=== PATIENT | male | born 1940 | race Caucasian/White ===

== ENCOUNTER 2016-11-25 12:10 | Inpatient (IN) | payer OTHER ==
[~2016-11-25] VITALS: Ht 165.1 cm; Wt 92.0 kg
[~2016-11-25 12:10] MED LIST: ACET-1311 PO; BISA10SU7 RE; CHLO0.12 MT; DIPH25CA5 PO; IPRASOL4 INH; KETO2SHA TOP; LANS15CA6 PO; MELATAB2 PO; MENT4GEL TOP; MOML PO; NRN600 PO; OXGN; OXYC1TAB3 PO; POLY335019 PO; PRMT25 PO; SENN-83 PO; SODIENE PR; TIZA4CAP PO; [UNRECOGNIZED DRUG - CODE] TOP
--- NOTE | 2016-11-25 12:40 | EMERGENCY ROOM VISIT NOTE ---
History Report prepared by Sonia: Geovanny Paulino Under the Supervision of: Dr. Ora Love M.D. First contact with patient: 12:23 Chief Complaint: ILLNESS Stated Complaint: ILLNESS History of Present Illness The patient is a 76 year old male who presents to the Emergency Room with complaints of waxing & waning blood pressure today. The patient has also been feeling generally unwell since yesterday. The patient currently denies any pain , lightheadedness, or vomiting. He was able to eat breakfast this morning. The patient has a history of cerebral palsy. He is currently being treated for a UTI. He also has history of diabetes and renal failure. He does not normally use a urinary catheter. Source of History: patient Onset: today Position: other (cardiovascular) Quality: other (blood pressure) Timing: waxes/wanes Associated Symptoms: No vomiting Review of Systems See HPI for pertinent positives & negatives. A total of 10 systems reviewed and were otherwise negative. Past Medical & Surgical Medical Problems: (1) Cerebral palsy (2) CKD (chronic kidney disease) stage 3, GFR 30-59 ml/min (3) DMII (diabetes mellitus, type 2) (4) Fever Family History No pertinent family history Social History Smoking Status: Never Smoker Alcohol Use: none Drug Use: none Marital Status: single Housing Status: residential Occupation Status: disabled Current/Historical Medications Scheduled Aspirin (Aspirin), 81 MG PO DAILY Gabapentin (Neurontin), 200 MG PO AMPM Gabapentin (Neurontin), 100 MG PO NOON Ketoconazole (Topical) (Ketoconazole), 1 APPLN TOP 2XWK Lansoprazole (Prevacid), 15 MG PO DAILY Levofloxacin (Levaquin), 750 MG PO DAILY Levothyroxine Sodium (Levothyroxine Sodium), 1 TAB PO DAILY Lisinopril (Prinivil), 10 MG PO DAILY Metformin Hcl (Glucophage), 500 MG PO BIDM Midodrine Hcl (Midodrine Hcl), 2.5 MG PO TID Oxycodone HCl (Oxycodone HCl), 5 MG PO BID Polyethylene Glycol 3350 (Miralax), 17 GM PO DAILY Ranitidine (Zantac), 150 MG PO DAILY Sennosides-Docusate Sodium (Senna-S), 2 TAB PO AMHS Tizanidine (Zanaflex), 4 MG PO TID Scheduled PRN Acetaminophen (Tylenol), 650 MG PO Q4 PRN for Pain Acetaminophen Tab (Tylenol), 650 MG PO Q4 PRN for Fever Bisacodyl (Dulcolax), 1 SUPP RI DAILY PRN for Constipation Camphor & Menthol (Sarna), 1 APPLN TOP QID PRN for UNDECIDED Ipratropium-Albuterol (Duoneb), 1 TREATMENT INH Q4H PRN for Wheezing Magnesium Hydroxide (Milk Of Magnesia), 30 ML PO DAILY PRN for Constipation Menthol (Mouth-Throat) ([place] Cough Drops), 1 DROP PO Q2 PRN for COUGH/SORE THROAT Ondansetron Hcl (Zofran), 4 MG PO QAM PRN for Nausea Zolpidem Tartrate (Ambien), 5 MG PO HS PRN for Insomnia Allergies Coded Allergies: No Known Allergies (Unverified , 04/24/16) Physical Exam Vital Signs Date Time Temp Pulse Resp B/P Pulse Ox O2 Delivery O2 Flow Rate FiO2 11/25/16 15:56 104 18 11/25/16 15:51 108 21 11/25/16 15:46 107 18 11/25/16 15:41 107 18 11/25/16 15:36 107 19 11/25/16 15:35 101/64 11/25/16 14:48 109/69 11/25/16 14:46 112 21 11/25/16 14:41 103 20 11/25/16 14:36 101 22 11/25/16 14:31 100 19 93/82 11/25/16 14:26 95 21 11/25/16 14:21 102 21 11/25/16 14:16 111/80 11/25/16 14:02 100/80 11/25/16 13:51 84 22 11/25/16 13:47 115/68 11/25/16 13:32 116/67 11/25/16 13:21 84 18 11/25/16 13:16 102/62 11/25/16 13:10 80 14 11/25/16 13:02 83/75 11/25/16 12:46 108/60 11/25/16 12:46 75 11/25/16 12:31 93/64 11/25/16 12:22 37.3 82 22 90/61 98 Room Air Physical Exam Vital signs reviewed. Noted to be hypotensive General: Somewhat ill-appearing male, in no significant distress. HEENT: No scleral icterus, PERRLA, neck supple. Atraumatic. Mucous membranes are dry. Cardiovascular: Regular rate and rhythm, no extra sounds. Pulmonary: Clear to auscultation bilaterally, normal work of breathing. Abdomen: Soft, nontender. Musculoskeletal: Contractures of bilateral upper extremities. Atrophy of bilateral lower extremities. Neurologic: Patient awake alert and oriented x 3 Skin: Warm, dry, no rash Medical Decision & Procedures ER Provider Diagnostic Interpretation: Radiology results as stated below per my review and radiologist interpretation: SINGLE VIEW CHEST CLINICAL HISTORY: Hypotension. FINDINGS: An AP, portable, upright chest radiograph is compared to study dated 04/24/2016. The examination is degraded by portable technique and patient rotation. The heart is enlarged and there is atherosclerotic calcification of the thoracic aorta. The pulmonary vasculature is noncongested. Chronic interstitial thickening is similar to previous. Airspace opacities are present the left lung base. There is right basilar atelectasis. No airspace consolidation is seen typical for pneumonia and there is no large pleural effusion. No pneumothorax is seen. The skeletal structures are osteopenic. The bony thorax is grossly intact. Fusion hardware is noted in the cervical spine. IMPRESSION: 1. Cardiomegaly without radiographic evidence of congestive failure. 2. There are airspace opacities the left lung base. This likely represents atelectasis. Correlated clinically for evidence of a superimposed infectious/inflammatory pneumonitis. Electronically signed by: Kvng St M.D. 11/25/2016 1:22 PM Dictated Date/Time: 11/25/2016 1:19 PM RENAL ULTRASOUND HISTORY: Renal insufficiency renal failure COMPARISON: None. FINDINGS: Right kidney: Maximum dimension 11.2 cm. No evidence for hydronephrosis. 9 mm renal cyst. Normal corticomedullary differentiation and cortical thickness. Left kidney: Maximum dimension 10.3 cm. No evidence for hydronephrosis. Normal corticomedullary differentiation and cortical thickness. Bladder: No bladder wall thickening. The bilateral ureteral jets were identified. IMPRESSION: Normal renal ultrasound. No evidence for hydronephrosis. Small right renal cyst. Electronically signed by: Jacinto Tierney M.D. 11/25/2016 3:32 PM Dictated Date/Time: 11/25/2016 3:30 PM Laboratory Results Test 11/25/16 12:26 11/25/16 14:55 Neutrophils % (Manual) 65.8 % Lymphocytes % (Manual) 21.9 % Monocytes % (Manual) 12.3 % Neutrophils # (Manual) 2.71 K/uL (1.4-6.5) Total Absolute Neutrophils 2.71 K/uL (1.4-6.5) Lymphocytes # (Manual) 0.90 K/uL (1.2-3.4) Total Absolute Lymphocytes 0.90 K/uL (1.2-3.4) Monocytes # (Manual) 0.51 K/uL (0.11-0.59) Total Bilirubin 0.5 mg/dl (0.2-1) Direct Bilirubin 0.1 mg/dl (0-0.2) Aspartate Amino Transf (AST/SGOT) 21 U/L (15-37) Alanine Aminotransferase (ALT/SGPT) 37 U/L (12-78) Alkaline Phosphatase 83 U/L (45-117) Total Creatine Kinase 80 U/L (39-308) Creatine Kinase MB 1.2 ng/ml (0.5-3.6) Creatine Kinase MB Ratio 1.5 (0-3.0) Troponin I 0.024 ng/ml (0-0.045) Total Protein 7.5 gm/dl (6.4-8.2) Albumin 2.6 gm/dl (3.4-5.0) Urine Color YELLOW Urine Appearance CLOUDY (CLEAR) Urine pH 7.5 (4.5-7.5) Urine Specific [place] 1.017 (1.000-1.030) Urine Protein 1+ (NEG) Urine Glucose (UA) 2+ (NEG) Urine Ketones NEG (NEG) Urine Occult Blood 1+ (NEG) Urine Nitrite NEG (NEG) Urine Bilirubin NEG (NEG) Urine Urobilinogen NEG (NEG) Urine Leukocyte Esterase LARGE (NEG) Urine WBC (Auto) >30 /hpf (0-5) Urine RBC (Auto) 5-10 /hpf (0-4) Urine Hyaline Casts (Auto) 1-5 /lpf (0-5) Urine Epithelial Cells (Auto) >30 /lpf (0-5) Urine Bacteria (Auto) NEG (NEG) Date/Time Source Procedure Growth Status 11/25/16 14:55 Urine , Clean Catch Urine Culture - Final MORE THAN THREE TYPES OF ORGANISMS RI... Complete Laboratory results per my review. Medications Administered Medications (Trade) Dose Ordered Sig/Lucille Route Start Time Stop Time Status Last Admin Dose Admin Sodium Chloride 500 ml @ 999 mls/hr Q31M STAT IV 11/25/16 12:56 11/25/16 13:26 DC 11/25/16 13:32 999 MLS/HR Sodium Chloride 1,000 ml @ 125 mls/hr Q8H STAT IV 11/25/16 12:56 11/25/16 18:22 DC 11/25/16 13:32 125 MLS/HR Insulin Human Regular 4 units/ Syringe 4 ml @ 1 mls/min NOW ONCE IV 11/25/16 15:45 11/25/16 15:48 DC 11/25/16 16:19 1 MLS/MIN Sodium Chloride (Nss 1000ml) 1,000 ml @ 100 mls/hr Q10H IV 11/25/16 16:03 12/25/16 16:02 11/28/16 23:59 100 MLS/HR ECG Indication: weakness Rate (beats per minute): 82 Rhythm: normal sinus Findings: no acute ischemic change, no ectopy ED Course 1235: Past medical records reviewed. The patient was evaluated in room C6. A complete history and physical examination was performed. 1256: NSS 1000 ml @ 125 mls/hr, NSS 500 ml @ 999 mls/hr. 1436: Discussed the case with Dr. Selby, [facility] Hospitalist. The patient will be evaluated. Medical Decision Differential diagnosis: Etiologies such as metabolic, infection, hypo/hyperglycemia, electrolyte abnormalities, cardiac sources, intracerebral event, toxicologic, neurologic, as well as others were entertained. This pt was evaluated and appeared to be in no distress. IV access was obtained and lab work was drawn. Pt was hydrated with NSS d/t hypotension. Patient is afebrile. White count is slightly low. Labs reveal an acute renal failure, likely volume restriction. UA was pending. Lactic acid was pending, d /t lab collection complications. EKG reveals a NSR without ectopy or ischemia. CXR reveals atelectasis with cardiomegaly, no failure. Pt was d/w the hospitalist service for admission and further management. He is aware of the plan and agrees. Consults Time Called: 1430 Consulting Physician: Twan Lockett Hospitalist Returned Call: [phone] The patient will be evaluated. Impression Primary Impression: Hypotension Additional Impression: Dehydration Scribe Attestation The scribe's documentation has been prepared under my direction and personally reviewed by me in its entirety. I confirm that the note above accurately reflects all work, treatment, procedures, and medical decision making performed by me. Departure Information Dispostion Being Evaluated By Hospitalist Referrals Geo Varela M.D. (PCP) Patient Instructions My [facility] Problem Qualifiers
[2016-11-25] MEDS ORDERED: SODIUM CHLORIDE 0.9% 500ML 500 ML IV STA (12:56)
[2016-11-25] MEDS ORDERED: SODIUM CHLORIDE 0.9% 1000ML 1,000 ML IV STA (12:56)
[2016-11-25 13:08] LABS: HEMATOCRIT 33.9 % (42-52); MEAN CELL VOLUME 96.9 fL (80-100); MEAN CORPUSCULAR HEMOGLOBIN 32.6 pg (25-34); MEAN CORPUSCULAR HGB CONC 33.6 g/dl (32-36); PLATELET COUNT 146 K/uL (130-400); WHITE BLOOD COUNT 4.12 K/uL (4.8-10.8)
[2016-11-25 13:17] LABS: BUN/CREATININE RATIO 12.4 (10-20); CALCIUM 8.2 mg/dl (8.5-10.1); CREATININE 2.9 mg/dl (0.60-1.40); POTASSIUM 5.4 mmol/L (3.5-5.1)
[2016-11-25 13:22] LABS: CKMB/CK RATIO 1.5 (0-3.0)
--- NOTE | 2016-11-25 13:23 | DIAGNOSTIC IMAGING REPORT ---
SINGLE VIEW CHEST CLINICAL HISTORY: Hypotension. FINDINGS: An AP, portable, upright chest radiograph is compared to study dated 04/24/2016. The examination is degraded by portable technique and patient rotation. The heart is enlarged and there is atherosclerotic calcification of the thoracic aorta. The pulmonary vasculature is noncongested. Chronic interstitial thickening is similar to previous. Airspace opacities are present the left lung base. There is right basilar atelectasis. No airspace consolidation is seen typical for pneumonia and there is no large pleural effusion. No pneumothorax is seen. The skeletal structures are osteopenic. The bony thorax is grossly intact. Fusion hardware is noted in the cervical spine. IMPRESSION: 1. Cardiomegaly without radiographic evidence of congestive failure. 2. There are airspace opacities the left lung base. This likely represents atelectasis. Correlated clinically for evidence of a superimposed infectious/inflammatory pneumonitis. Electronically signed by: Kvng St M.D. 11/25/2016 1:22 PM Dictated Date/Time: 11/25/2016 1:19 PM
[2016-11-25 13:31] LABS: COMPLETE YES; LYMPHOCYTE % 21.9 %; NEUTROPHILS % 65.8 %
[2016-11-25] MEDS ORDERED: SENN-104 PO (14:01)
[2016-11-25] MEDS ORDERED: GLC/500 PO (14:01)
[2016-11-25] MEDS ORDERED: CAMPLOT10 TOP (14:01)
[2016-11-25] MEDS ORDERED: OXYC-609 PO (14:01)
[2016-11-25] MEDS ORDERED: LISI10TA PO (14:01)
[2016-11-25] MEDS ORDERED: MOML PO (14:01)
[2016-11-25] MEDS ORDERED: BISA10SU3 PR (14:01)
[2016-11-25] MEDS ORDERED: ACET-1311 PO (14:01)
[2016-11-25] MEDS ORDERED: LEVO-18 PO (14:01)
--- NOTE | 2016-11-25 15:33 | DIAGNOSTIC IMAGING REPORT ---
RENAL ULTRASOUND HISTORY: Renal insufficiency renal failure COMPARISON: None. FINDINGS: Right kidney: Maximum dimension 11.2 cm. No evidence for hydronephrosis. 9 mm renal cyst. Normal corticomedullary differentiation and cortical thickness. Left kidney: Maximum dimension 10.3 cm. No evidence for hydronephrosis. Normal corticomedullary differentiation and cortical thickness. Bladder: No bladder wall thickening. The bilateral ureteral jets were identified. IMPRESSION: Normal renal ultrasound. No evidence for hydronephrosis. Small right renal cyst. Electronically signed by: Jacinto Tierney M.D. 11/25/2016 3:32 PM Dictated Date/Time: 11/25/2016 3:30 PM
[2016-11-25] MEDS ORDERED: INSULIN REGULAR 4 UNITS in SYRINGE 3.96 ML IV ONE (15:45)
[2016-11-25 15:48] LABS: URINE APPEARANCE CLOUDY (CLEAR); URINE BILIRUBIN NEG (NEG); URINE COLOR YELLOW; URINE EPITHELIAL CELL AUTO >30 /lpf (0-5); URINE NITRITE NEG (NEG); URINE PH 7.5 (4.5-7.5); URINE SPECIFIC GRAVITY 1.017 (1.000-1.030); UROBILINOGEN NEG (NEG); ZZUR CULT IF INDIC CLEAN CATCH YES
[2016-11-25] MEDS ORDERED: NovoLIN-R INSULIN PER UNIT CHARGE SC STA (16:01)
[2016-11-25 16:14] LABS: MANUAL MICROSCOPIC REQUIRED? NO; REVIEW REQ? YES; SULFASALICYLIC ACID POS (NEG)
[2016-11-25] MEDS ORDERED: GLUCOSE 10 TABS/TUBE PO PRN (16:15)
[2016-11-25] MEDS ORDERED: GLUCOSE 40% GEL 15 GM TUBE PO PRN (16:15)
[2016-11-25] MEDS ORDERED: POLYETHYLENE (MIRALAX) 17 GM PACK PO PRN (16:15)
[2016-11-25] MEDS ORDERED: ALUMINUM/MAGNESIUM/SIMETH (MAALOX MAX) 30 ML UDC PO PRN (16:15)
[2016-11-25] MEDS ORDERED: ONDANSETRON INJ 2 MG/ML 2 ML VIAL IV PRN (16:15)
[2016-11-25] MEDS ORDERED: MAGNESIUM HYDROXIDE SUSP 30 ML UDC PO PRN (16:15)
[2016-11-25] MEDS ORDERED: GLUCAGON FOR INJ 1 MG VIAL SQ PRN (16:15)
[2016-11-25] MEDS ORDERED: DEXTROSE 50% 50 ML SYR IV PRN (16:15)
[2016-11-25] MEDS ORDERED: PHARMACY GLYCEMIC MGMT CONSULT PRN (16:57)
[2016-11-25] MEDS ORDERED: PIPERACILL/TAZOBAC CONSULT ACTIVE PRN (18:00)
[2016-11-25] MEDS ORDERED: VANCOMYCIN CONSULT ACTIVE PRN (18:00)
[2016-11-25 18:10] VITALS: BP 109/68; PULSE 99; TEMP 39.5; O2SAT 90; Ht 165.1 cm; Wt 92.0 kg
[2016-11-25] MEDS ORDERED: PIPERACILL/TAZOBAC IV 3.375 GM in DEXTROSE 5% 100ML IV ONE (18:30)
[2016-11-25] MEDS: SODIUM CHLORIDE 0.9% 1000ML 1,000 ML IV SCH (18:37)
[2016-11-25 18:50] LABS: INR 1.3 (0.9-1.1); PROTHROMBIN TIME (PATIENT) 13.8 SECONDS (9.0-12.0)
[2016-11-25] MEDS: INSULIN ASPART 100 UNITS/ML 3 ML PEN SC SCH ×2 (18:56→20:35)
[2016-11-25] MEDS: ACETAMINOPHEN 325 MG TAB PO PRN (18:57)
[2016-11-25] MEDS ORDERED: VANCOMYCIN INJ 1,850 MG in SODIUM CHLORIDE 0.9% 500ML 500 ML IV SCH (19:00)
[2016-11-25] MEDS ORDERED: ZOLPIDEM TARTRATE 5 MG TAB PO PRN (19:00)
[2016-11-25] MEDS ORDERED: ONDANSETRON 4 MG TAB PO PRN (19:00)
[2016-11-25] MEDS ORDERED: COUGH DROP (SUGAR FREE) LOZ 24 LOZ/1 BOX PO PRN (19:00)
[2016-11-25] MEDS ORDERED: BISACODYL 10 MG SUPP PR PRN (19:00)
[2016-11-25] MEDS ORDERED: OXYCODONE HCL IR 5 MG TAB (IMMEDIATE RELEASE) PO PRN (19:00)
[2016-11-25 19:02] LABS: BLOOD UREA NITROGEN 34 mg/dl (7-18); BUN/CREATININE RATIO 12.5 (10-20); CALCIUM 7.8 mg/dl (8.5-10.1); CARBON DIOXIDE 18 mmol/L (21-32); CHLORIDE 107 mmol/L (98-107); GLUCOSE 166 mg/dl (70-99); SODIUM 136 mmol/L (136-145)
[2016-11-25 19:42] VITALS: BP 95/61; PULSE 97; TEMP 38.2; O2SAT 91
[2016-11-25 20:00] VITALS: O2SAT 91
[2016-11-25] MEDS: DOCUSATE SODIUM/SENNA 50/8.6MG TAB PO SCH (20:28)
[2016-11-25] MEDS: GABAPENTIN 100 MG CAP PO SCH (20:30)
[2016-11-25] MEDS ORDERED: VANCOMYCIN INJ 1,000 MG in SODIUM CHLORIDE 0.9% 250ML 250 ML IV SCH (21:00)
--- NOTE | 2016-11-25 21:20 | Pharmacy Progress Note ---
Glycemic: Assessment & Plan Date of Service November 25, 2016. Assessment & Plan Item Value Date Time Bedside Glucose 177 mg/dl H 11/25/16 2019 Bedside Glucose 174 mg/dl H 11/25/16 1854 Random Glucose 166 mg/dl H 11/25/16 1820 Bedside Glucose 212 mg/dl H 11/25/16 1615 Random Glucose 296 mg/dl H 11/25/16 1226 Home Diabetes Regimen: * metformin 500mg po BID In-patient Regimen: * Basal insulin: Not ordered at this time * Correctional Insulin: Novolog Correction per scale ACHS & 0200 Goal Range: Low 110 mg/dL - High 150 mg/dL Correction Factor: 25 mg/dL/unit * Prandial insulin: Per carb ratio of 1 unit per 12 grams CHO consumed Pharmacy will continue to monitor patient daily and write orders per [facility] inpatient glycemic control protocol. Thanks. * Please note that the plan above was derived based on current level of insulin resistance and hospital stress. These recommendations are appropriate for inpatient admission only. Plan of care upon discharge will need to be reassessed to avoid potential outpatient hypo/hyperglycemia.
--- NOTE | 2016-11-25 21:37 | History and Physical ---
History & Physical Date & Time of Service: November 25, 2016 at 15:06 Chief Complaint: Illness Primary Care Physician: Geo Varela M.D. History of Present Illness Source: patient, clinic records, hospital records This is a 76 year old male with a PMH of Cerebral Palsy, hx. of epidural abscess and discitis, neurogenic bladder, orthostatic hypotension, DM2, hypothyroidism sent over by [facility] secondary to fevers/chills, elevated creatinine, dehydration. 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 He returned to [facility] in 2015 for sepsis, likely secondary to pneumonia. He has had issues with recurrent UTI due to neurogenic bladder. He was seen by Hilda Iniguez PA-C on 11/24 and 11/25 due to fevers. He was given Levaquin 750mg, but he refused IVFs. He was noted to have an increase in his creatinine level. He was tearful when initially told he would come to the ER on 11/24, but agreeable today (11/25). Also noted to have BSGs in the 500s at the nursing facility; was given 10 units of Novolog. Currently: He feels much better after receiving the IV fluids; states he feels like he's back to his baseline; he is able to move his L arm, and can move his b /l legs and has actually been ambulating at [facility]. Past Medical/Surgical History Medical Problems: (1) Cerebral palsy Status: Chronic (2) CKD (chronic kidney disease) stage 3, GFR 30-59 ml/min Status: Chronic (3) DMII (diabetes mellitus, type 2) Status: Chronic Family History No pertinent family history Social History Smoking Status: Never Smoker Drug Use: none Marital Status: single 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 Status: disabled Multi-Drug Resistant Organisms History of MDRO: Yes Type of MDRO: MRSA Allergies Coded Allergies: No Known Allergies (Unverified , 04/24/16) Home Medications Scheduled Aspirin (Aspirin), 81 MG PO DAILY Gabapentin (Neurontin), 200 MG PO AMPM Gabapentin (Neurontin), 100 MG PO NOON Ketoconazole (Topical) (Ketoconazole), 1 APPLN TOP 2XWK Lansoprazole (Prevacid), 15 MG PO DAILY Levofloxacin (Levaquin), 750 MG PO DAILY Levothyroxine Sodium (Levothyroxine Sodium), 1 TAB PO DAILY Lisinopril (Prinivil), 10 MG PO DAILY Metformin Hcl (Glucophage), 500 MG PO BIDM Midodrine Hcl (Midodrine Hcl), 2.5 MG PO TID Oxycodone HCl (Oxycodone HCl), 5 MG PO BID Polyethylene Glycol 3350 (Miralax), 17 GM PO DAILY Ranitidine (Zantac), 150 MG PO DAILY Sennosides-Docusate Sodium (Senna-S), 2 TAB PO AMHS Tizanidine (Zanaflex), 4 MG PO TID Scheduled PRN Acetaminophen (Tylenol), 650 MG PO Q4 PRN for Pain Acetaminophen Tab (Tylenol), 650 MG PO Q4 PRN for Fever Bisacodyl (Dulcolax), 1 SUPP MI DAILY PRN for Constipation Camphor & Menthol (Sarna), 1 APPLN TOP QID PRN for UNDECIDED Ipratropium-Albuterol (Duoneb), 1 TREATMENT INH Q4H PRN for Wheezing Magnesium Hydroxide (Milk Of Magnesia), 30 ML PO DAILY PRN for Constipation Menthol (Mouth-Throat) ([place] Cough Drops), 1 DROP PO Q2 PRN for COUGH/SORE THROAT Ondansetron Hcl (Zofran), 4 MG PO QAM PRN for Nausea Zolpidem Tartrate (Ambien), 5 MG PO HS PRN for Insomnia Review of Systems Constitutional: + chills, + fatigue, + fever, + weakness Respiratory: No cough, No dyspnea at rest, No dyspnea on exertion, No shortness of breath, No sputum, No wheezing Cardiovascular: No chest pain, No edema, No palpitations Abdomen: No GI bleeding, No constipation, No diarrhea, No nausea, No pain, No vomiting Musculoskeletal: + joint pain, + muscle pain, No calf pain, No swelling Genitourinary - Male: + urinary retention (neurogenic bladder) Neurologic: + paralysis (R upper extremity), + weakness (chronic muscle weakness), No balance problems, No memory loss, No numbness/tingling, No vertigo Psychiatric: No anxiety, No depression symptoms Hematologic / Lymphatic: No abnormal bleeding/bruising Integumentary: No rash Allergic / Immunologic: No environmental allergies, No seasonal allergies Physical Exam Vital Signs Date Time Temp Pulse Resp B/P Pulse Ox O2 Delivery O2 Flow Rate FiO2 11/25/16 14:21 102 21 11/25/16 14:16 111/80 11/25/16 14:02 100/80 11/25/16 13:51 84 22 11/25/16 13:47 115/68 11/25/16 13:32 116/67 11/25/16 13:21 84 18 11/25/16 13:16 102/62 11/25/16 13:10 80 14 11/25/16 13:02 83/75 11/25/16 12:46 108/60 11/25/16 12:46 75 11/25/16 12:31 93/64 11/25/16 12:22 37.3 82 22 90/61 98 Room Air General Appearance: no apparent distress Head: normocephalic, atraumatic Eyes: normal inspection ENT: hearing grossly normal Neck: supple Respiratory/Chest: chest non-tender, lungs clear, normal breath sounds, no respiratory distress, no accessory muscle use Cardiovascular: no edema, no gallop, no JVD, no murmur, normal peripheral pulses, + tachycardia Abdomen/GI: normal bowel sounds, non tender, soft, no organomegaly Extremities/Musculoskelatal: + pertinent finding (significant muscle weakness, chronically) Neurologic/Psych: alert, + motor weakness Skin: normal color Diagnostics Laboratory Results Results Past 24 Hours Test 11/25/16 12:26 11/25/16 15:01 11/25/16 15:02 Range/Units White Blood Count 4.12 4.8-10.8 K/uL Red Blood Count 3.50 4.7-6.1 M/uL Hemoglobin 11.4 14.0-18.0 g/dL Hematocrit 33.9 42-52 % Mean Corpuscular Volume 96.9 80-100 fL Mean Corpuscular Hemoglobin 32.6 25-34 pg Mean Corpuscular Hemoglobin Concent 33.6 32-36 g/dl Platelet Count 146 130-400 K/uL Mean Platelet Volume 11.0 7.4-10.4 fL RDW Standard Deviation 51.7 36.4-46.3 fL RDW Coefficient of Variation 14.8 11.5-14.5 % Neutrophils % (Manual) 65.8 % Lymphocytes % (Manual) 21.9 % Monocytes % (Manual) 12.3 % Neutrophils # (Manual) 2.71 1.4-6.5 K/uL Total Absolute Neutrophils 2.71 1.4-6.5 K/uL Lymphocytes # (Manual) 0.90 1.2-3.4 K/uL Total Absolute Lymphocytes 0.90 1.2-3.4 K/uL Monocytes # (Manual) 0.51 0.11-0.59 K/uL Sodium Level 135 136-145 mmol/L Potassium Level 5.4 3.5-5.1 mmol/L Chloride Level 100 98-107 mmol/L Carbon Dioxide Level 28 21-32 mmol/L Anion Gap 7.0 3-11 mmol/L Blood Urea Nitrogen 36 7-18 mg/dl Creatinine 2.90 0.60-1.40 mg/dl Est Creatinine Clear Calc Drug Dose 11.8 ml/min Estimated GFR () 23.6 Estimated GFR (Non- 20.4 BUN/Creatinine Ratio 12.4 10-20 Random Glucose 296 70-99 mg/dl Calcium Level 8.2 8.5-10.1 mg/dl Magnesium Level 2.0 1.8-2.4 mg/dl Total Bilirubin 0.5 0.2-1 mg/dl Direct Bilirubin 0.1 0-0.2 mg/dl Aspartate Amino Transf (AST/SGOT) 21 15-37 U/L Alanine Aminotransferase (ALT/SGPT) 37 12-78 U/L Alkaline Phosphatase 83 45-117 U/L Total Creatine Kinase 80 39-308 U/L Creatine Kinase MB 1.2 0.5-3.6 ng/ml Creatine Kinase MB Ratio 1.5 0-3.0 Total Protein 7.5 6.4-8.2 gm/dl Albumin 2.6 3.4-5.0 gm/dl Microbiology Results 11/25/16 Blood Culture, Received Pending 11/25/16 Blood Culture, Received Pending Diagnostic Radiology IMPRESSION: 1. Cardiomegaly without radiographic evidence of congestive failure. 2. There are airspace opacities the left lung base. This likely represents atelectasis. Correlated clinically for evidence of a superimposed infectious/inflammatory pneumonitis. Normal EKG Impression Assessment and Plan This is a 76 year old male with a PMH of Cerebral Palsy, hx. of epidural abscess and discitis, neurogenic bladder, orthostatic hypotension, DM2, hypothyroidism sent over by [facility] secondary to fevers/chills, elevated creatinine, dehydration Acute Kidney Injury Neurogenic Bladder secondary to dehydration? possibly UTI; patient has neurogenic bladder condom catheter not working; penis noted to be in retracted, which could be another cause of his kidney injury Either way, we will give fluids for now, monitor urine output check UA will give antibiotics urine culture Lactic Acidosis Possible Pneumonia patient does have a history of sepsis, has had fevers the past few days at [facility] possible lung source, as CXR shows possible pneumonitis will add Zosyn + Vancomycin - pharmacy for dosing blood cultures pending hx. of MRSA in the past, hx. of discitis, epidural abscess, recurrent UTIs DM2 sliding scale pharmacy glycemic control consult Hypothyroidism check TSH continue synthroid DVT ppx subq heparin FULL CODE
[2016-11-25] MEDS: HEPARIN SOD 5000 UNIT/0.5 ML CARP SQ SCH (21:40)
[2016-11-26] VITALS (9 sets, daily range): BP systolic 81–117; BP diastolic 50–73; PULSE 67–96; TEMP 37–39.5; O2SAT 92–96
[2016-11-26] MEDS: SODIUM CHLORIDE 0.9% 1000ML 1,000 ML IV SCH ×3 (00:15→20:15)
[2016-11-26] MEDS: PIPERACILL/TAZOBAC IV 3.375 GM in DEXTROSE 5% 100ML 100 ML IV SCH ×3 (00:16→15:58)
[2016-11-26] MEDS ORDERED: INSULIN ASPART 100 UNITS/ML 3 ML PEN SC SCH (02:00)
[2016-11-26] MEDS: ACETAMINOPHEN 325 MG TAB PO PRN ×2 (02:48→15:05)
[2016-11-26] MEDS ORDERED: LEVOTHYROXINE 50 MCG TAB PO SCH (06:00)
[2016-11-26] MEDS: HEPARIN SOD 5000 UNIT/0.5 ML CARP SQ SCH ×3 (06:38→22:05)
[2016-11-26] MEDS: KETOCONAZOLE SCH ×2 (07:30→15:56)
[2016-11-26] MEDS: POLYETHYLENE (MIRALAX) 17 GM PACK PO SCH (07:30)
[2016-11-26 07:32] LABS: HEMATOCRIT 35.1 % (42-52); MEAN CORPUSCULAR HEMOGLOBIN 32.3 pg (25-34); MEAN CORPUSCULAR HGB CONC 33.3 g/dl (32-36); MEAN PLATELET VOLUME 10.3 fL (7.4-10.4); PLATELET COUNT 111 K/uL (130-400); RED BLOOD COUNT 3.62 M/uL (4.7-6.1); WHITE BLOOD COUNT 2.28 K/uL (4.8-10.8)
[2016-11-26] MEDS: ASPIRIN 81 MG ECTAB PO SCH (07:35)
[2016-11-26] MEDS: PANTOprazole SOD 40 MG TAB PO SCH (07:36)
[2016-11-26] MEDS: MIDODRINE 2.5 MG TAB PO SCH ×3 (07:36→17:13)
[2016-11-26] MEDS: GABAPENTIN 100 MG CAP PO SCH ×3 (07:36→20:25)
[2016-11-26] MEDS: RANITIDINE HCL 150 MG TAB PO SCH (07:37)
[2016-11-26] MEDS: DOCUSATE SODIUM/SENNA 50/8.6MG TAB PO SCH ×2 (07:37→20:26)
[2016-11-26 08:02] LABS: BUN/CREATININE RATIO 13.3 (10-20); CALCIUM 8.1 mg/dl (8.5-10.1); CREATININE 2.6 mg/dl (0.60-1.40); MAGNESIUM 1.9 mg/dl (1.8-2.4); POTASSIUM 4.5 mmol/L (3.5-5.1)
[2016-11-26 08:15] LABS: THYROID STIMULATING HORMONE 4.59 uIu/ml (0.300-4.500)
[2016-11-26] MEDS: INSULIN ASPART 100 UNITS/ML 3 ML PEN SC SCH ×4 (08:19→20:27)
[2016-11-26] MEDS ORDERED: LISINOPRIL 10 MG TAB PO SCH (09:00)
[2016-11-26] MEDS ORDERED: POLYETHYLENE (MIRALAX) 17 GM PACK PO SCH (09:00)
[2016-11-26] MEDS ORDERED: GABAPENTIN 100 MG CAP PO SCH (09:00)
[2016-11-26 09:25] LABS: ESTIMATED AVERAGE GLUCOSE 189 mg/dl; HA1C FLAG Normal (Normal)
[2016-11-26] MEDS: VANCOMYCIN INJ 1,300 MG in SODIUM CHLORIDE 0.9% 250ML 250 ML IV SCH ×2 (09:57→10:11)
[2016-11-26] MEDS ORDERED: INSULIN GLARGINE SOLOSTAR 100 UNITS/ML 3 ML PEN SC ONE (11:00)
--- NOTE | 2016-11-26 11:23 | Progress Note ---
Subjective Date of Service: November 26, 2016. Subjective Pt evaluation today including: conversation w/ patient, physical exam, lab review, review of studies, review of inpatient medication list Saw/examined the patient in room 244 Patient is sleepy and lethargic, but arousable and does answer questions appropriately +fevers, chills, weakness denies chest pain, shortness of breath Problem List Medical Problems: (1) Dehydration Status: Acute (2) Hypotension Status: Acute (3) Pneumonia Status: Acute (4) Sepsis Status: Acute (5) Tachycardia Status: Acute (6) TIA (transient ischemic attack) Status: Acute Review of Systems Constitutional: + chills, + fatigue, + fever, + weakness Respiratory: No shortness of breath Cardiac: No chest pain, No edema, No palpitations Abdomen: No GI bleeding, No constipation, No diarrhea, No nausea, No pain, No vomiting Male : + incontinence Medications Current Inpatient Medications Medications (Trade) Dose Ordered Sig/Lucille Route Start Time Stop Time Status Last Admin Dose Admin Heparin Sodium (Porcine) 5000 unit 5,000 unit Q8H SQ 11/25/16 22:00 12/25/16 21:59 11/26/16 06:38 5,000 UNIT Sodium Chloride (Nss 1000ml) 1,000 ml @ 150 mls/hr Q6H40M IV 11/25/16 16:03 12/25/16 16:02 11/26/16 00:15 150 MLS/HR Acetaminophen (Tylenol Tab) 650 mg Q4H PRN PO 11/25/16 16:15 12/25/16 16:14 11/26/16 02:48 650 MG Al Hydrox/Mg Hydrox/Simethicone (Maalox Max Susp) 15 ml Q4H PRN PO 11/25/16 16:15 12/25/16 16:14 Magnesium Hydroxide (Milk Of Magnesia Susp) 30 ml Q12H PRN PO 11/25/16 16:15 12/25/16 16:14 Ondansetron HCl (Zofran Inj) 4 mg Q6H PRN IV 11/25/16 16:15 12/25/16 16:14 Polyethylene (Miralax Powder Packet) 17 gm DAILY PRN PO 11/25/16 16:15 12/25/16 16:14 Insulin Aspart (novoLOG ASPART) SLIDING SCALE If C... ACHS SC 11/25/16 18:15 12/25/16 18:14 11/26/16 08:19 2 UNITS Glucose (Glucose 40% Gel) 15-30 GRAMS 15 GRAMS... UD PRN PO 11/25/16 16:15 12/25/16 16:14 Glucose (Glucose Chew Tab) 4-8 Tablets 4 Tabl... UD PRN PO 11/25/16 16:15 12/25/16 16:14 Dextrose (Dextrose 50% 50ML Syringe) 25-50ML OF 50% DW IV FOR... UD PRN IV 11/25/16 16:15 12/25/16 16:14 Glucagon (Glucagon Inj) 1 mg UD PRN SQ 11/25/16 16:15 12/25/16 16:14 Miscellaneous Information 1 ea 1 ea UD PRN N/A 11/25/16 16:57 12/25/16 16:56 Piperacillin Sod/ Tazobactam Sod/ Dextrose (Zosyn Iv/D5 100ml) 115 ml @ 28.75 mls/ hr Q8H IV 11/26/16 00:00 12/05/16 23:59 11/26/16 07:33 28.75 MLS/HR Vancomycin HCl (Consult) 1 ea UD PRN N/A 11/25/16 18:00 12/25/16 17:59 Piperacillin Sod/ Tazobactam Sod (Consult) 1 ea UD PRN N/A 11/25/16 18:00 12/25/16 17:59 Aspirin (Ecotrin Tab) 81 mg DAILY PO 11/26/16 09:00 12/26/16 08:59 11/26/16 07:35 81 MG Bisacodyl (Dulcolax Supp) 5 mg DAILY PRN MN 11/25/16 19:00 12/25/16 18:59 Midodrine (Proamatine Tab) 2.5 mg TID@0700,1200,1700 PO 11/26/16 07:00 12/26/16 06:59 11/26/16 07:36 2.5 MG Ondansetron HCl (Zofran Tab) 4 mg QAM PRN PO 11/25/16 19:00 12/25/16 18:59 Ranitidine HCl (zANTac TAB) 150 mg DAILY PO 11/26/16 09:00 12/26/16 08:59 11/26/16 07:37 150 MG Senna/Docusate Sodium (Senokot S Tab) 2 tab AMHS PO 11/25/16 21:00 12/25/16 20:59 11/26/16 07:37 2 TAB Zolpidem Tartrate (Ambien Tab) 5 mg HS PRN PO 11/25/16 19:00 12/25/16 18:59 Miscellaneous Information (Order Awaiting Action) 1 ea [id number] N/A 11/26/16 09:00 12/26/16 08:59 Pantoprazole Sodium (Protonix Tab) 40 mg DAILY PO 11/26/16 09:00 12/26/16 08:59 11/26/16 07:36 40 MG Menthol (Nice Jossie) 1 jossie Q2 PRN PO 11/25/16 19:00 12/25/16 18:59 Tizanidine HCl (Zanaflex Tab) 4 mg TID PO 11/25/16 21:00 12/25/16 20:59 11/26/16 07:37 4 MG Oxycodone HCl (Roxicodone Immediate Rel Tab) 5 mg Q4 PRN PO 11/25/16 19:00 12/09/16 18:59 Gabapentin (Neurontin Cap) 200 mg BID PO 11/25/16 21:00 12/25/16 20:59 11/26/16 07:36 200 MG Polyethylene (Miralax Powder Packet) 17 gm DAILY PO 11/26/16 09:00 12/26/16 08:59 Gabapentin 100 mg 100 mg DAILY@1200 PO 11/26/16 12:00 12/26/16 11:59 Vancomycin HCl/ Sodium Chloride (Vancomycin Inj/ Nss 250ml) 276 ml @ 125 mls/hr 1000 IV 11/26/16 10:00 11/26/16 12:13 11/26/16 10:11 125 MLS/HR Levothyroxine Sodium (Synthroid Tab) 75 mcg DAILYBB PO 11/27/16 06:00 12/27/16 05:59 Insulin Glargine (Lantus Solostar Pen) SEE PROTOCOL TEXT BID SC 11/26/16 21:00 12/26/16 20:59 Objective Vital Signs Date Time Temp Pulse Resp B/P Pulse Ox O2 Delivery O2 Flow Rate FiO2 11/26/16 10:54 37.1 69 18 90/59 92 Room Air 11/26/16 08:00 37.2 96 16 108/73 92 Room Air 11/26/16 08:00 92 Room Air 11/26/16 04:00 92 Room Air 11/26/16 04:00 37.0 80 19 91/50 92 Room Air 11/26/16 02:30 37.9 86 22 91/59 93 Room Air 11/26/16 00:00 37.3 85 24 117/71 96 Room Air 11/25/16 23:45 Room Air 11/25/16 20:00 91 Room Air 11/25/16 19:42 38.2 97 20 95/61 91 Room Air 11/25/16 18:10 39.5 99 18 109/68 90 Room Air 11/25/16 17:30 37.3 103 22 101/64 98 11/25/16 17:26 103 22 11/25/16 16:56 104 22 11/25/16 16:48 103 11/25/16 16:26 105 24 11/25/16 15:56 104 18 11/25/16 15:51 108 21 11/25/16 15:46 107 18 11/25/16 15:41 107 18 11/25/16 15:36 107 19 11/25/16 15:35 101/64 11/25/16 14:48 109/69 11/25/16 14:46 112 21 11/25/16 14:41 103 20 11/25/16 14:36 101 22 11/25/16 14:31 100 19 93/82 11/25/16 14:26 95 21 11/25/16 14:21 102 21 11/25/16 14:16 111/80 11/25/16 14:02 100/80 11/25/16 13:51 84 22 11/25/16 13:47 115/68 11/25/16 13:32 116/67 11/25/16 13:21 84 18 11/25/16 13:16 102/62 11/25/16 13:10 80 14 11/25/16 13:02 83/75 11/25/16 12:46 108/60 11/25/16 12:46 75 11/25/16 12:31 93/64 11/25/16 12:22 37.3 82 22 90/61 98 Room Air Physical Exam General Appearance: + mild distress, + pertinent finding (lethargic, tired, weak, also was tearful when Puentes catheter was mentioned) Respiratory/Chest: lungs clear, normal breath sounds, no respiratory distress, no accessory muscle use Cardiovascular: regular rate, rhythm, no edema, no gallop, no JVD, no murmur Abdomen: normal bowel sounds Extremities: normal inspection, no pedal edema Neurologic/Psychiatric: alert Laboratory Results Last 24 Hours Test 11/25/16 12:26 11/25/16 14:55 11/25/16 16:10 11/25/16 16:15 White Blood Count 4.12 K/uL Red Blood Count 3.50 M/uL Hemoglobin 11.4 g/dL Hematocrit 33.9 % Mean Corpuscular Volume 96.9 fL Mean Corpuscular Hemoglobin 32.6 pg Mean Corpuscular Hemoglobin Concent 33.6 g/dl Platelet Count 146 K/uL Mean Platelet Volume 11.0 fL RDW Standard Deviation 51.7 fL RDW Coefficient of Variation 14.8 % Neutrophils % (Manual) 65.8 % Lymphocytes % (Manual) 21.9 % Monocytes % (Manual) 12.3 % Neutrophils # (Manual) 2.71 K/uL Total Absolute Neutrophils 2.71 K/uL Lymphocytes # (Manual) 0.90 K/uL Total Absolute Lymphocytes 0.90 K/uL Monocytes # (Manual) 0.51 K/uL Sodium Level 135 mmol/L Potassium Level 5.4 mmol/L Chloride Level 100 mmol/L Carbon Dioxide Level 28 mmol/L Anion Gap 7.0 mmol/L Blood Urea Nitrogen 36 mg/dl Creatinine 2.90 mg/dl Est Creatinine Clear Calc Drug Dose 11.8 ml/min Estimated GFR () 23.6 Estimated GFR (Non- 20.4 BUN/Creatinine Ratio 12.4 Random Glucose 296 mg/dl Calcium Level 8.2 mg/dl Magnesium Level 2.0 mg/dl Total Bilirubin 0.5 mg/dl Direct Bilirubin 0.1 mg/dl Aspartate Amino Transf (AST/SGOT) 21 U/L Alanine Aminotransferase (ALT/SGPT) 37 U/L Alkaline Phosphatase 83 U/L Total Creatine Kinase 80 U/L Creatine Kinase MB 1.2 ng/ml Creatine Kinase MB Ratio 1.5 Troponin I 0.024 ng/ml Total Protein 7.5 gm/dl Albumin 2.6 gm/dl Urine Color YELLOW Urine Appearance CLOUDY Urine pH 7.5 Urine Specific [place] 1.017 Urine Protein 1+ Urine Glucose (UA) 2+ Urine Ketones NEG Urine Occult Blood 1+ Urine Nitrite NEG Urine Bilirubin NEG Urine Urobilinogen NEG Urine Leukocyte Esterase LARGE Urine WBC (Auto) >30 /hpf Urine RBC (Auto) 5-10 /hpf Urine Hyaline Casts (Auto) 1-5 /lpf Urine Epithelial Cells (Auto) >30 /lpf Urine Bacteria (Auto) NEG Lactic Acid Level 3.1 mmol/L Bedside Glucose 212 mg/dl Test 11/25/16 18:20 11/25/16 18:35 11/25/16 18:54 11/25/16 19:20 Sodium Level 136 mmol/L Potassium Level mmol/L 4.6 mmol/L Chloride Level 107 mmol/L Carbon Dioxide Level 18 mmol/L Anion Gap 11.0 mmol/L Blood Urea Nitrogen 34 mg/dl Creatinine 2.70 mg/dl Est Creatinine Clear Calc Drug Dose 24.1 ml/min Estimated GFR () 25.7 Estimated GFR (Non- 22.2 BUN/Creatinine Ratio 12.5 Random Glucose 166 mg/dl Calcium Level 7.8 mg/dl Prothrombin Time 13.8 SECONDS Prothromb Time International Ratio 1.3 Bedside Glucose 174 mg/dl Test 11/25/16 20:19 11/25/16 23:50 11/26/16 02:20 11/26/16 06:54 Bedside Glucose 177 mg/dl 209 mg/dl 150 mg/dl Lactic Acid Level 3.9 mmol/L Test 11/26/16 07:16 11/26/16 08:00 White Blood Count 2.28 K/uL Red Blood Count 3.62 M/uL Hemoglobin 11.7 g/dL Hematocrit 35.1 % Mean Corpuscular Volume 97.0 fL Mean Corpuscular Hemoglobin 32.3 pg Mean Corpuscular Hemoglobin Concent 33.3 g/dl RDW Standard Deviation 53.0 fL RDW Coefficient of Variation 14.9 % Platelet Count 111 K/uL Mean Platelet Volume 10.3 fL Sodium Level 139 mmol/L Potassium Level 4.5 mmol/L Chloride Level 105 mmol/L Carbon Dioxide Level 25 mmol/L Anion Gap 9.0 mmol/L Blood Urea Nitrogen 35 mg/dl Creatinine 2.60 mg/dl Est Creatinine Clear Calc Drug Dose 24.5 ml/min Estimated GFR () 26.9 Estimated GFR (Non- 23.3 BUN/Creatinine Ratio 13.3 Random Glucose 162 mg/dl Estimated Average Glucose 189 mg/dl Hemoglobin A1c 8.2 % Lactic Acid Level 2.5 mmol/L Calcium Level 8.1 mg/dl Magnesium Level 1.9 mg/dl Thyroid Stimulating Hormone (TSH) 4.590 uIu/ml Random Vancomycin Level 18.7 mcg/ml Assessment and Plan This is a 76 year old male with a PMH of Cerebral Palsy, hx. of epidural abscess and discitis, neurogenic bladder, orthostatic hypotension, DM2, hypothyroidism sent over by [facility] secondary to fevers/chills, elevated creatinine, dehydration Acute Kidney Injury Neurogenic Bladder 11/26 urinary retention? will need I's and O's assure that condom catheter is functioning may need Puentes catheter cont IVFs 11/25 secondary to dehydration? possibly UTI; patient has neurogenic bladder condom catheter not working; penis noted to be in retracted, which could be another cause of his kidney injury Either way, we will give fluids for now, monitor urine output check UA will give antibiotics urine culture Lactic Acidosis Possible Pneumonia 11/26 lactic acid trending down now, after IVF rate increased continue Zosyn and Vancomycin blood and urine cultures pending 11/25 patient does have a history of sepsis, has had fevers the past few days at [facility] possible lung source, as CXR shows possible pneumonitis will add Zosyn + Vancomycin - pharmacy for dosing blood cultures pending hx. of MRSA in the past, hx. of discitis, epidural abscess, recurrent UTIs DM2 sliding scale pharmacy glycemic control consult Hypothyroidism TSH was high Synthroid dose increased DVT ppx subq heparin FULL CODE
--- NOTE | 2016-11-26 14:19 | Pharmacy Progress Note ---
Glycemic Control Intl Consult Date of Service November 26, 2016. Scope Glycemic Pharmacist consulted by Dr Selby on 11/25/16 for glycemic control and to write orders per [facility] inpatient glycemic control protocol Objective Weight (Kilograms): 81.500 Accuchecks BSG (last 24hrs): Test 11/25/16 16:15 11/25/16 18:20 11/25/16 18:54 11/25/16 20:19 Bedside Glucose 212 mg/dl (70-99) 174 mg/dl (70-99) 177 mg/dl (70-99) Random Glucose 166 mg/dl (70-99) Test 11/26/16 02:20 11/26/16 06:54 11/26/16 07:16 11/26/16 11:15 Bedside Glucose 209 mg/dl (70-99) 150 mg/dl (70-99) 232 mg/dl (70-99) Random Glucose 162 mg/dl (70-99) HbA1c Test 11/26/16 07:16 Hemoglobin A1c 8.2 % (4.5-5.6) H Recent Pertinent Medications Outpatient Anti-diabetic Regimen: * Metformin 500mg PO BIDM The patient is currently receiving: * Basal insulin: Lantus -- units every -- hours {NONE} * Correctional Insulin: Novolog Correction per scale ACHS Goal Range: Low 110 mg/dL - High 150 mg/dL Correction Factor: 25 mg/dL/unit * Prandial insulin: Per carb ratio of 1 unit per 12 grams CHO consumed * Oral Agents: On hold for admission Risk Factors for Insulin Resistance: * Infection * Diet Assessment & Plan ASSESSMENT: * 76yo T2DM with adequate glycemic control per recent A1c based on age and co- morbidities. Less stringent A1c goal warranted. * Pt with sustained hyperglycemia secondary to infection & oral agents on hold w /o basal insulin. * Oral agents are not recommended for inpatient use d/t drug interactions, changing PO intake, and difficulty titrating for acute hyper/hypoglycemia. ADA recommends re-initiating outpatient oral agents 1-2 days prior to discharge if/ when appropriate if they were held on admission. * BSGs 212, 177, 209, 162, 253 * Goal BSGs ~ 140-180mg/dl * SQ basal bolus insulin regimen is the recommended regimen for inpatient glycemic control. * Will initiate weight based insulin dosing for insulin duran patient and titrate based on BSG trends. * ADA & AACE recommend a goal blood sugar range 140-180 mg/dl for the majority of critically ill & non-critically ill patients. However, more stringent targets may be selected in individual cases. PLAN FOR INPATIENT GLYCEMIC CONTROL: SQ basal bolus insulin regimen based on weight and stress of 1-2. * Hold outpatient oral diabetes medications * Basal insulin with Lantus SQ BID * Lantus 8 units for BSG below 140mg/dl {weight & st = 1} * Lantus 14 units for BSG 140mg/dl and above {weight & st = 2} * Bolus Insulin {weight & st = 2} * NovoLog per scale ACHS or Q6hrs while NPO * Goal Range: Low 110 mg/dL - High 140 mg/dL * Correction Factor: 30 mg/dL/unit * Nutritional / Prandial insulin per carb ratio of 1 unit per 10 grams CHO consumed * Please note that the plan above was derived based on current level of insulin resistance and hospital stress. These recommendations are appropriate for inpatient admission only. Plan of care upon discharge will need to be reassessed to avoid potential outpatient hypo/hyperglycemia. Thank you.
--- NOTE | 2016-11-26 15:13 | Pharmacy Progress Note ---
Pharmacy Abx Initial Consult Date of Service November 26, 2016. Pharmacy Dosing Scope Date of Consult: 11/25/16 Consultation requested by: Dr. Selby Pharmacy is consulted to initiate Vancomycin & Zosyn IV dosing therapy, order appropriate labs and adjust drug dose/frequency. Subjective The patient is a 76 year old male admitted on November 25, 2016 at 16:13. Objective Height (Feet): 5 Height (Inches): 5.00 Weight (Kilograms): 81.500 Vital Signs (Past 12Hrs) Vital Signs Past 12 Hours Date Time Temp Pulse Resp B/P Pulse Ox O2 Delivery O2 Flow Rate FiO2 11/26/16 12:00 92 Room Air 11/26/16 10:54 37.1 69 18 90/59 92 Room Air 11/26/16 08:00 37.2 96 16 108/73 92 Room Air 11/26/16 08:00 92 Room Air 11/26/16 04:00 92 Room Air 11/26/16 04:00 37.0 80 19 91/50 92 Room Air Lab Results (24Hrs) Test 11/25/16 18:20 11/25/16 18:35 11/25/16 19:20 11/26/16 06:54 Sodium Level 136 mmol/L (136-145) Chloride Level 107 mmol/L (98-107) Carbon Dioxide Level 18 mmol/L (21-32) Anion Gap 11.0 mmol/L (3-11) Blood Urea Nitrogen 34 mg/dl (7-18) Creatinine 2.70 mg/dl (0.60-1.40) Est Creatinine Clear Calc Drug Dose 24.1 ml/min Estimated GFR () 25.7 Estimated GFR (Non- 22.2 BUN/Creatinine Ratio 12.5 (10-20) Random Glucose 166 mg/dl (70-99) Calcium Level 7.8 mg/dl (8.5-10.1) Prothrombin Time 13.8 SECONDS (9.0-12.0) Prothromb Time International Ratio 1.3 (0.9-1.1) Potassium Level 4.6 mmol/L (3.5-5.1) Bedside Glucose 150 mg/dl (70-99) Test 11/26/16 07:16 11/26/16 11:15 11/26/16 12:15 White Blood Count 2.28 K/uL (4.8-10.8) Red Blood Count 3.62 M/uL (4.7-6.1) Hemoglobin 11.7 g/dL (14.0-18.0) Hematocrit 35.1 % (42-52) Mean Corpuscular Volume 97.0 fL (80-100) Mean Corpuscular Hemoglobin 32.3 pg (25-34) Mean Corpuscular Hemoglobin Concent 33.3 g/dl (32-36) RDW Standard Deviation 53.0 fL (36.4-46.3) RDW Coefficient of Variation 14.9 % (11.5-14.5) Platelet Count 111 K/uL (130-400) Mean Platelet Volume 10.3 fL (7.4-10.4) Sodium Level 139 mmol/L (136-145) Potassium Level 4.5 mmol/L (3.5-5.1) Chloride Level 105 mmol/L (98-107) Carbon Dioxide Level 25 mmol/L (21-32) Anion Gap 9.0 mmol/L (3-11) Blood Urea Nitrogen 35 mg/dl (7-18) Creatinine 2.60 mg/dl (0.60-1.40) Est Creatinine Clear Calc Drug Dose 24.5 ml/min Estimated GFR () 26.9 Estimated GFR (Non- 23.3 BUN/Creatinine Ratio 13.3 (10-20) Random Glucose 162 mg/dl (70-99) Estimated Average Glucose 189 mg/dl Hemoglobin A1c 8.2 % (4.5-5.6) Lactic Acid Level 2.5 mmol/L (0.4-2.0) 2.4 mmol/L (0.4-2.0) Calcium Level 8.1 mg/dl (8.5-10.1) Magnesium Level 1.9 mg/dl (1.8-2.4) Thyroid Stimulating Hormone (TSH) 4.590 uIu/ml (0.300-4.500) Random Vancomycin Level 18.7 mcg/ml Bedside Glucose 232 mg/dl (70-99) Micro Results Date/Time Source Procedure Growth Status 11/25/16 13:39 Blood Blood Culture Pending Received 11/25/16 12:26 Blood Blood Culture Pending Received 11/25/16 14:55 Urine , Clean Catch Urine Culture - Preliminary PIN-POINT GROWTH PRESENT, REINCUBATING. Resulted Risk Factors for Resistance * Resident in a assisted or extended-care facility * History of infection with a multidrug-resistant organism: MRSA Assessment & Plan Assessment 76 year old male admitted with UTI, Pneumonia and possible Sepsis. Plan Vancomycin for treatment of Pneumonia/Sepsis. Vancomycin IV * Loading dose: 1850 mg (20mg/kg) was given yesterday at 1926. * Maintenance dose: 1300 mg IV x1 dose was ordered this morning at 1000. * Scr = 2.6 and Crcl = 24.5 today. * One time doses of Vancomycin will be ordered for now due to poor renal function. * Will re-dose when the random Vanco level falls between goal trough range of 15 - 20 mcg/ml. * Random Vanco level ordered for 11/27 with AM labs. Pharmacy will continue to follow and will adjust dose/frequency as necessary. Thank you.
[2016-11-26] MEDS ORDERED: INSULIN GLARGINE SOLOSTAR 100 UNITS/ML 3 ML PEN SC SCH (21:00)
[2016-11-27] MEDS: PIPERACILL/TAZOBAC IV 3.375 GM in DEXTROSE 5% 100ML 100 ML IV SCH ×4 (00:10→23:32)
[2016-11-27] MEDS: SODIUM CHLORIDE 0.9% 1000ML 1,000 ML IV SCH ×3 (01:17→21:22)
[2016-11-27 03:31] VITALS: BP 93/59; PULSE 76; TEMP 37.4; O2SAT 96
[2016-11-27] MEDS: LEVOTHYROXINE 75 MCG TAB PO SCH (05:48)
[2016-11-27] MEDS: HEPARIN SOD 5000 UNIT/0.5 ML CARP SQ SCH ×3 (05:49→21:31)
[2016-11-27] MEDS: MIDODRINE 2.5 MG TAB PO SCH ×3 (05:51→16:58)
[2016-11-27 07:33] LABS: HEMATOCRIT 34.5 % (42-52); MEAN CELL VOLUME 96.9 fL (80-100); MEAN CORPUSCULAR HEMOGLOBIN 32.3 pg (25-34); MEAN CORPUSCULAR HGB CONC 33.3 g/dl (32-36); MEAN PLATELET VOLUME 10.9 fL (7.4-10.4); PLATELET COUNT 104 K/uL (130-400); RED BLOOD COUNT 3.56 M/uL (4.7-6.1); WHITE BLOOD COUNT 2.47 K/uL (4.8-10.8)
[2016-11-27 07:56] VITALS: BP 96/62; PULSE 78; TEMP 36.9; O2SAT 94
[2016-11-27] MEDS: INSULIN ASPART 100 UNITS/ML 3 ML PEN SC SCH ×4 (07:56→21:27)
[2016-11-27] MEDS: KETOCONAZOLE SCH ×2 (07:56→16:56)
[2016-11-27] MEDS: ASPIRIN 81 MG ECTAB PO SCH (07:57)
[2016-11-27] MEDS: POLYETHYLENE (MIRALAX) 17 GM PACK PO SCH (07:57)
[2016-11-27] MEDS: GABAPENTIN 100 MG CAP PO SCH ×3 (07:58→21:23)
[2016-11-27] MEDS: DOCUSATE SODIUM/SENNA 50/8.6MG TAB PO SCH ×2 (07:58→21:22)
[2016-11-27] MEDS: PANTOprazole SOD 40 MG TAB PO SCH (07:58)
[2016-11-27] MEDS: RANITIDINE HCL 150 MG TAB PO SCH (07:59)
[2016-11-27] MEDS: INSULIN GLARGINE SOLOSTAR 100 UNITS/ML 3 ML PEN SC SCH ×2 (07:59→21:27)
[2016-11-27 08:25] LABS: BUN/CREATININE RATIO 12.2 (10-20); CREATININE 2.6 mg/dl (0.60-1.40); MAGNESIUM 1.8 mg/dl (1.8-2.4); POTASSIUM 3.7 mmol/L (3.5-5.1)
[2016-11-27 08:30] LABS: CALCIUM 7.6 mg/dl (8.5-10.1)
--- NOTE | 2016-11-27 10:09 | Pharmacy Progress Note ---
Glycemic Control: Progress Nt Date of Service November 27, 2016. Scope Glycemic Pharmacist consulted for glycemic control and to write orders per [facility] inpatient glycemic control protocol. Objective Accuchecks BSG (last 24hrs): Test 11/26/16 11:15 11/26/16 16:13 11/26/16 20:10 11/27/16 06:59 Bedside Glucose 232 mg/dl (70-99) 172 mg/dl (70-99) 161 mg/dl (70-99) 107 mg/dl (70-99) Test 11/27/16 07:05 Random Glucose 99 mg/dl (70-99) HbA1c: Test 11/26/16 07:16 Hemoglobin A1c 8.2 % (4.5-5.6) H Recent Pertinent Medications Outpatient Anti-diabetic Regimen: * Metformin 500mg PO BIDM The patient is currently receiving: * Basal insulin: Lantus 14 units every 12 hours * Correctional Insulin: Novolog Correction per scale ACHS Goal Range: Low 110 mg/dL - High 140 mg/dL Correction Factor: 30mg/dL/unit * Prandial insulin: Per carb ratio of 1 unit per 10 grams CHO consumed * Oral Agents: On hold for admission Risk Factors for Insulin Resistance: * Infection * Diet Assessment & Plan ASSESSMENT: * See progress note from 11/26 for more background info, in short: * Pt receiving weight based SQ basal bolus insulin regimen for hyperglycemia secondary to baseline DM (metformin on hold) & stress/infection * Weight and stress of 2 regimen initiated on 11/26 * Patient is currently receiving an average of ~43 units of insulin per day * 28 units of basal insulin * 15 units of prandial/correctional insulin * BSGs ranging 107 - 253 over the past 24hrs * Changes needed to insulin regimen: * AM Fasting BSG = 99, 107mg/dl. This is in slightly below goal range for patient based on inpatient targets and co-morbidities. Therefore Basal insulin needs decreased slightly * Total daily dose = 43 units. Therefore may need to evenly re-distribute regimen 50%:50% basal:prandial to prevent hypo/hyperglycemia. Total daily dose of ~ 40 units is yielding adequate glycemic control * Post-prandial BSGs are in range therefore no changes needed to CF/CR PLAN FOR INPATIENT GLYCEMIC CONTROL: SQ basal bolus insulin regimen based estimated total daily dose ~ 40 units * Hold outpatient oral diabetes medications * Basal insulin * Decrease to Lantus 10 units SQ BID * Bolus Insulin {No change, continue weight & st = 2} * NovoLog per scale ACHS or Q6hrs while NPO * Goal Range: Low 110 mg/dL - High 140 mg/dL * Correction Factor: 30 mg/dL/unit * Nutritional / Prandial insulin per carb ratio of 1 unit per 10 grams CHO consumed * Please note that the plan above was derived based on current level of insulin resistance and hospital stress. These recommendations are appropriate for inpatient admission only. Plan of care upon discharge will need to be reassessed to avoid potential outpatient hypo/hyperglycemia. Thank you.
[2016-11-27 11:37] VITALS: BP 94/66; PULSE 78; TEMP 36.9; O2SAT 95
--- NOTE | 2016-11-27 12:08 | Pharmacy Progress Note ---
Pharmacy Abx Dose Progress Nt Date of Service November 27, 2016. Pharmacy Dosing Scope The patient is currently receiving the following antimicrobial agents per Pharmacy consult: Vancomycin 1300 mg IV single doses based on random levels. Objective Height (Feet): 5 Height (Inches): 5.00 Weight (Kilograms): 92.300 Vital Signs (Past 12Hrs) Vital Signs Past 12 Hours Date Time Temp Pulse Resp B/P Pulse Ox O2 Delivery O2 Flow Rate FiO2 11/27/16 11:37 36.9 78 18 94/66 95 11/27/16 08:00 Room Air 11/27/16 07:56 36.9 78 18 96/62 94 11/27/16 04:00 Room Air 11/27/16 03:31 37.4 76 20 93/59 96 Room Air 11/27/16 00:00 Room Air 11/26/16 23:58 37.1 68 19 86/57 95 Room Air Lab Results (24Hrs) Test 11/26/16 12:15 11/27/16 06:59 11/27/16 07:05 11/27/16 07:54 Lactic Acid Level 2.4 mmol/L (0.4-2.0) 2.6 mmol/L (0.4-2.0) Bedside Glucose 107 mg/dl (70-99) White Blood Count 2.47 K/uL (4.8-10.8) Red Blood Count 3.56 M/uL (4.7-6.1) Hemoglobin 11.5 g/dL (14.0-18.0) Hematocrit 34.5 % (42-52) Mean Corpuscular Volume 96.9 fL (80-100) Mean Corpuscular Hemoglobin 32.3 pg (25-34) Mean Corpuscular Hemoglobin Concent 33.3 g/dl (32-36) RDW Standard Deviation 54.4 fL (36.4-46.3) RDW Coefficient of Variation 15.3 % (11.5-14.5) Platelet Count 104 K/uL (130-400) Mean Platelet Volume 10.9 fL (7.4-10.4) Sodium Level 137 mmol/L (136-145) Potassium Level 3.7 mmol/L (3.5-5.1) Chloride Level 105 mmol/L (98-107) Carbon Dioxide Level 22 mmol/L (21-32) Anion Gap 10.0 mmol/L (3-11) Blood Urea Nitrogen 32 mg/dl (7-18) Creatinine 2.60 mg/dl (0.60-1.40) Est Creatinine Clear Calc Drug Dose 26.0 ml/min Estimated GFR () 26.9 Estimated GFR (Non- 23.3 BUN/Creatinine Ratio 12.2 (10-20) Random Glucose 99 mg/dl (70-99) Calcium Level 7.6 mg/dl (8.5-10.1) Magnesium Level 1.8 mg/dl (1.8-2.4) Random Vancomycin Level 19.5 mcg/ml Test 11/27/16 11:21 Bedside Glucose 132 mg/dl (70-99) Serology Item Value Date Time Random Vancomycin Level 19.5 mcg/ml 11/27/16 0705 Micro Results Date/Time Source Procedure Growth Status 11/25/16 13:39 Blood Blood Culture - Preliminary NO GROWTH TO DATE. Resulted 11/25/16 12:26 Blood Blood Culture - Preliminary NO GROWTH TO DATE. Resulted 11/25/16 14:55 Urine , Clean Catch Urine Culture - Final MORE THAN THREE TYPES OF ORGANISMS LA... Complete Risk Factors for Resistance * Resident in a fpc or extended-care facility * History of MRSA. History of epidural abscess. Assessment & Plan Assessment 76 year old male receiving Vancomycin for treatment of UTI/ Pneumonia. Day # 3/7 of antimicrobial therapy Plan Vancomycin IV * Trough level of 19.5 mcg/mL is therapeutic after a single dose of Vanco 1300 mg IV given yesterday at 1000 am. * Ordered another Vanco 1300 mg IV x 1 for today at 1230 since level is within the therapeutic goal range of 15-20 mcg/ml. * A new random level has been ordered for tomorrow with AM labs. * Scr = 2.6, Crcl = 26 same as yesterday. * Since renal function remains poor, will continue with one-time doses of Vancomycin based on random levels for now. * If Crcl improves to baseline of 30 - 59, will consider scheduling a maintenance Vanco dose. Pharmacy will continue to follow and will adjust dose/frequency as necessary. Thank you.
[2016-11-27] MEDS ORDERED: VANCOMYCIN INJ 1,300 MG in SODIUM CHLORIDE 0.9% 250ML 250 ML IV SCH (12:30)
--- NOTE | 2016-11-27 13:07 | Progress Note ---
Subjective Date of Service: November 27, 2016. Subjective Pt evaluation today including: conversation w/ patient, physical exam, lab review, review of studies, review of inpatient medication list Saw/examined the patient in room 244-1 He's doing okay, more awake/alert today He has some back pain, no other issues Problem List Medical Problems: (1) Dehydration Status: Acute (2) Hypotension Status: Acute (3) Pneumonia Status: Acute (4) Sepsis Status: Acute (5) Tachycardia Status: Acute (6) TIA (transient ischemic attack) Status: Acute Review of Systems Constitutional: + chills, + fever, + weakness Respiratory: No cough, No shortness of breath, No sputum Cardiac: No chest pain, No edema, No palpitations Abdomen: No diarrhea, No nausea, No pain, No vomiting Heme: No abnormal bleeding/bruising Medications Current Inpatient Medications Medications (Trade) Dose Ordered Sig/Lucille Route Start Time Stop Time Status Last Admin Dose Admin Heparin Sodium (Porcine) 5000 unit 5,000 unit Q8H SQ 11/25/16 22:00 12/25/16 21:59 11/27/16 05:49 5,000 UNIT Sodium Chloride (Nss 1000ml) 1,000 ml @ 150 mls/hr Q6H40M IV 11/25/16 16:03 12/25/16 16:02 11/27/16 08:55 150 MLS/HR Acetaminophen (Tylenol Tab) 650 mg Q4H PRN PO 11/25/16 16:15 12/25/16 16:14 11/26/16 15:05 650 MG Al Hydrox/Mg Hydrox/Simethicone (Maalox Max Susp) 15 ml Q4H PRN PO 11/25/16 16:15 12/25/16 16:14 Magnesium Hydroxide (Milk Of Magnesia Susp) 30 ml Q12H PRN PO 11/25/16 16:15 12/25/16 16:14 Ondansetron HCl (Zofran Inj) 4 mg Q6H PRN IV 11/25/16 16:15 12/25/16 16:14 Polyethylene (Miralax Powder Packet) 17 gm DAILY PRN PO 11/25/16 16:15 12/25/16 16:14 Insulin Aspart (novoLOG ASPART) SLIDING SCALE If C... ACHS SC 11/25/16 18:15 6/25/17 18:14 11/26/16 20:27 1 UNITS Glucose (Glucose 40% Gel) 15-30 GRAMS 15 GRAMS... UD PRN PO 11/25/16 16:15 12/25/16 16:14 Glucose (Glucose Chew Tab) 4-8 Tablets 4 Tabl... UD PRN PO 11/25/16 16:15 12/25/16 16:14 Dextrose (Dextrose 50% 50ML Syringe) 25-50ML OF 50% DW IV FOR... UD PRN IV 11/25/16 16:15 12/25/16 16:14 Glucagon (Glucagon Inj) 1 mg UD PRN SQ 11/25/16 16:15 12/25/16 16:14 Miscellaneous Information 1 ea 1 ea UD PRN N/A 11/25/16 16:57 12/25/16 16:56 Piperacillin Sod/ Tazobactam Sod/ Dextrose (Zosyn Iv/D5 100ml) 115 ml @ 28.75 mls/ hr Q8H IV 11/26/16 00:00 12/05/16 23:59 11/27/16 07:54 28.75 MLS/HR Vancomycin HCl (Consult) 1 ea UD PRN N/A 11/25/16 18:00 12/25/16 17:59 Piperacillin Sod/ Tazobactam Sod (Consult) 1 ea UD PRN N/A 11/25/16 18:00 12/25/16 17:59 Aspirin (Ecotrin Tab) 81 mg DAILY PO 11/26/16 09:00 12/26/16 08:59 11/27/16 07:57 81 MG Bisacodyl (Dulcolax Supp) 5 mg DAILY PRN MT 11/25/16 19:00 12/25/16 18:59 Midodrine (Proamatine Tab) 2.5 mg TID@0700,1200,1700 PO 11/26/16 07:00 12/26/16 06:59 11/27/16 11:48 2.5 MG Ondansetron HCl (Zofran Tab) 4 mg QAM PRN PO 11/25/16 19:00 12/25/16 18:59 Ranitidine HCl (zANTac TAB) 150 mg DAILY PO 11/26/16 09:00 12/26/16 08:59 11/27/16 07:59 150 MG Senna/Docusate Sodium (Senokot S Tab) 2 tab AMHS PO 11/25/16 21:00 12/25/16 20:59 11/27/16 07:58 2 TAB Zolpidem Tartrate (Ambien Tab) 5 mg HS PRN PO 11/25/16 19:00 12/25/16 18:59 Miscellaneous Information (Order Awaiting Action) 1 ea BID17 N/A 11/26/16 09:00 12/26/16 08:59 Pantoprazole Sodium (Protonix Tab) 40 mg DAILY PO 11/26/16 09:00 12/26/16 08:59 11/27/16 07:58 40 MG Menthol (Nice Jossie) 1 jossie Q2 PRN PO 11/25/16 19:00 12/25/16 18:59 Tizanidine HCl (Zanaflex Tab) 4 mg TID PO 11/25/16 21:00 12/25/16 20:59 11/27/16 07:58 4 MG Oxycodone HCl (Roxicodone Immediate Rel Tab) 5 mg Q4 PRN PO 11/25/16 19:00 12/09/16 18:59 Gabapentin (Neurontin Cap) 200 mg BID PO 11/25/16 21:00 12/25/16 20:59 11/27/16 07:58 200 MG Polyethylene (Miralax Powder Packet) 17 gm DAILY PO 11/26/16 09:00 12/26/16 08:59 Gabapentin (Neurontin Cap) 100 mg DAILY@1200 PO 11/26/16 12:00 12/26/16 11:59 11/27/16 11:48 100 MG Levothyroxine Sodium (Synthroid Tab) 75 mcg DAILYBB PO 11/27/16 06:00 12/27/16 05:59 11/27/16 05:48 75 MCG Insulin Glargine 10 unit 10 unit BID SC 11/27/16 09:00 12/27/16 08:59 11/27/16 07:59 10 UNIT Vancomycin HCl/ Sodium Chloride (Vancomycin Inj/ Nss 250ml) 276 ml @ 125 mls/hr 1230 IV 11/27/16 12:30 11/27/16 14:43 Objective Vital Signs Date Time Temp Pulse Resp B/P Pulse Ox O2 Delivery O2 Flow Rate FiO2 11/27/16 12:00 Room Air 11/27/16 11:37 36.9 78 18 94/66 95 11/27/16 08:00 Room Air 11/27/16 07:56 36.9 78 18 96/62 94 11/27/16 04:00 Room Air 11/27/16 03:31 37.4 76 20 93/59 96 Room Air 11/27/16 00:00 Room Air 11/26/16 23:58 37.1 68 19 86/57 95 Room Air 11/26/16 20:00 Room Air 11/26/16 19:35 37.6 67 22 85/55 92 Room Air 11/26/16 16:00 Room Air 11/26/16 15:26 39.5 81 20 81/56 92 Room Air Physical Exam General Appearance: no apparent distress Respiratory/Chest: lungs clear, normal breath sounds, no respiratory distress, no accessory muscle use Cardiovascular: regular rate, rhythm, no edema, no murmur Extremities: normal inspection, no pedal edema Neurologic/Psychiatric: alert, normal mood/affect, + motor weakness (chronic motor dysfunction; decreased ROM of the lower extremities, cannot move R UE) Laboratory Results Last 24 Hours Test 11/26/16 16:13 11/26/16 20:10 11/27/16 06:59 11/27/16 07:05 Bedside Glucose 172 mg/dl 161 mg/dl 107 mg/dl White Blood Count 2.47 K/uL Red Blood Count 3.56 M/uL Hemoglobin 11.5 g/dL Hematocrit 34.5 % Mean Corpuscular Volume 96.9 fL Mean Corpuscular Hemoglobin 32.3 pg Mean Corpuscular Hemoglobin Concent 33.3 g/dl RDW Standard Deviation 54.4 fL RDW Coefficient of Variation 15.3 % Platelet Count 104 K/uL Mean Platelet Volume 10.9 fL Sodium Level 137 mmol/L Potassium Level 3.7 mmol/L Chloride Level 105 mmol/L Carbon Dioxide Level 22 mmol/L Anion Gap 10.0 mmol/L Blood Urea Nitrogen 32 mg/dl Creatinine 2.60 mg/dl Est Creatinine Clear Calc Drug Dose 26.0 ml/min Estimated GFR () 26.9 Estimated GFR (Non- 23.3 BUN/Creatinine Ratio 12.2 Random Glucose 99 mg/dl Calcium Level 7.6 mg/dl Magnesium Level 1.8 mg/dl Random Vancomycin Level 19.5 mcg/ml Test 11/27/16 07:54 11/27/16 11:21 Lactic Acid Level 2.6 mmol/L Bedside Glucose 132 mg/dl Assessment and Plan This is a 76 year old male with a PMH of Cerebral Palsy, hx. of epidural abscess and discitis, neurogenic bladder, orthostatic hypotension, DM2, hypothyroidism sent over by [facility] secondary to fevers/chills, elevated creatinine, dehydration Acute Kidney Injury Neurogenic Bladder 11/27 continue fluids for today no urinary retention noted as per nursing creat from 2.9 to 2.6 lactic acid still elevated 11/26 urinary retention? will need I's and O's assure that condom catheter is functioning may need Puentes catheter cont IVFs 11/25 secondary to dehydration? possibly UTI; patient has neurogenic bladder condom catheter not working; penis noted to be in retracted, which could be another cause of his kidney injury Either way, we will give fluids for now, monitor urine output check UA will give antibiotics urine culture Lactic Acidosis Possible Pneumonia 11/27 continue Zosyn + Vanco 11/26 lactic acid trending down now, after IVF rate increased continue Zosyn and Vancomycin blood and urine cultures pending 11/25 patient does have a history of sepsis, has had fevers the past few days at [facility] possible lung source, as CXR shows possible pneumonitis will add Zosyn + Vancomycin - pharmacy for dosing blood cultures pending hx. of MRSA in the past, hx. of discitis, epidural abscess, recurrent UTIs DM2 sliding scale pharmacy glycemic control consult Hypothyroidism TSH was high Synthroid dose increased DVT ppx subq heparin FULL CODE
[2016-11-27 14:19] VITALS: BP 102/68; PULSE 72; O2SAT 95
[2016-11-27 16:01] VITALS: BP_SYST 73; BP_SYST 78; BP_DIAS 44; BP_DIAS 48; PULSE 54; TEMP 36.9; O2SAT 92
[2016-11-27 20:16] VITALS: BP 87/55; PULSE 76; TEMP 38.1; O2SAT 93
[2016-11-27] MEDS: ACETAMINOPHEN 325 MG TAB PO PRN (21:23)
[2016-11-28 00:10] VITALS: BP 87/57; PULSE 56; TEMP 36.9; O2SAT 95
[2016-11-28 04:11] VITALS: BP 84/56; PULSE 54; TEMP 36.6; O2SAT 97
[2016-11-28] MEDS: LEVOTHYROXINE 75 MCG TAB PO SCH (05:34)
[2016-11-28] MEDS: HEPARIN SOD 5000 UNIT/0.5 ML CARP SQ SCH ×3 (05:35→21:20)
[2016-11-28 07:31] LABS: HEMATOCRIT 33.8 % (42-52); MEAN CORPUSCULAR HEMOGLOBIN 32.8 pg (25-34); MEAN CORPUSCULAR HGB CONC 33.4 g/dl (32-36); MEAN PLATELET VOLUME 11.7 fL (7.4-10.4); PLATELET COUNT 110 K/uL (130-400); RED BLOOD COUNT 3.45 M/uL (4.7-6.1); WHITE BLOOD COUNT 2.99 K/uL (4.8-10.8)
[2016-11-28] MEDS: SODIUM CHLORIDE 0.9% 1000ML 1,000 ML IV SCH ×4 (08:03→23:59)
[2016-11-28 08:06] LABS: BUN/CREATININE RATIO 11.2 (10-20); CALCIUM 7.8 mg/dl (8.5-10.1); CREATININE 2.2 mg/dl (0.60-1.40); POTASSIUM 3.7 mmol/L (3.5-5.1)
[2016-11-28 08:17] VITALS: BP 115/72; PULSE 71; TEMP 37; O2SAT 92
[2016-11-28] MEDS: MIDODRINE 2.5 MG TAB PO SCH ×3 (08:24→17:18)
[2016-11-28] MEDS: KETOCONAZOLE SCH ×2 (08:24→17:00)
[2016-11-28] MEDS: ASPIRIN 81 MG ECTAB PO SCH (08:25)
[2016-11-28] MEDS: POLYETHYLENE (MIRALAX) 17 GM PACK PO SCH ×2 (08:25→08:34)
[2016-11-28] MEDS: GABAPENTIN 100 MG CAP PO SCH ×3 (08:26→19:18)
[2016-11-28] MEDS: PANTOprazole SOD 40 MG TAB PO SCH (08:27)
[2016-11-28] MEDS: DOCUSATE SODIUM/SENNA 50/8.6MG TAB PO SCH ×2 (08:27→18:46)
[2016-11-28] MEDS: RANITIDINE HCL 150 MG TAB PO SCH (08:28)
[2016-11-28] MEDS: INSULIN GLARGINE SOLOSTAR 100 UNITS/ML 3 ML PEN SC SCH ×2 (08:29→21:00)
[2016-11-28] MEDS: INSULIN ASPART 100 UNITS/ML 3 ML PEN SC SCH ×4 (08:31→21:00)
[2016-11-28] MEDS: PIPERACILL/TAZOBAC IV 3.375 GM in DEXTROSE 5% 100ML 100 ML IV SCH ×2 (08:38→15:47)
--- NOTE | 2016-11-28 08:50 | Progress Note ---
Subjective Date of Service: November 28, 2016. Subjective Pt evaluation today including: conversation w/ patient, physical exam, lab review, review of studies, review of inpatient medication list Saw/examined the patient in room 244 Doing well today; much more awake/alert, he is joking while conversing, states he will get out of bed today good PO intake, no fevers/chills no shortness of breath or chest pain Problem List Medical Problems: (1) Dehydration Status: Acute (2) Hypotension Status: Acute (3) Pneumonia Status: Acute (4) Sepsis Status: Acute (5) Tachycardia Status: Acute (6) TIA (transient ischemic attack) Status: Acute Review of Systems Constitutional: + weakness, No chills, No fever Respiratory: No shortness of breath Cardiac: No chest pain Abdomen: No diarrhea, No nausea, No pain, No vomiting Medications Current Inpatient Medications Medications (Trade) Dose Ordered Sig/Lucille Route Start Time Stop Time Status Last Admin Dose Admin Heparin Sodium (Porcine) 5000 unit 5,000 unit Q8H SQ 11/25/16 22:00 12/25/16 21:59 11/28/16 05:35 5,000 UNIT Sodium Chloride (Nss 1000ml) 1,000 ml @ 150 mls/hr Q6H40M IV 11/25/16 16:03 12/25/16 16:02 11/28/16 08:23 150 MLS/HR Acetaminophen (Tylenol Tab) 650 mg Q4H PRN PO 11/25/16 16:15 12/25/16 16:14 11/27/16 21:23 650 MG Al Hydrox/Mg Hydrox/Simethicone (Maalox Max Susp) 15 ml Q4H PRN PO 11/25/16 16:15 12/25/16 16:14 Magnesium Hydroxide (Milk Of Magnesia Susp) 30 ml Q12H PRN PO 11/25/16 16:15 12/25/16 16:14 Ondansetron HCl (Zofran Inj) 4 mg Q6H PRN IV 11/25/16 16:15 12/25/16 16:14 Polyethylene (Miralax Powder Packet) 17 gm DAILY PRN PO 11/25/16 16:15 12/25/16 16:14 Insulin Aspart (novoLOG ASPART) SLIDING SCALE If C... ACHS SC 11/25/16 18:15 12/25/16 18:14 11/28/16 08:31 5 UNITS Glucose (Glucose 40% Gel) 15-30 GRAMS 15 GRAMS... UD PRN PO 11/25/16 16:15 12/25/16 16:14 Glucose (Glucose Chew Tab) 4-8 Tablets 4 Tabl... UD PRN PO 11/25/16 16:15 12/25/16 16:14 Dextrose (Dextrose 50% 50ML Syringe) 25-50ML OF 50% DW IV FOR... UD PRN IV 11/25/16 16:15 12/25/16 16:14 Glucagon (Glucagon Inj) 1 mg UD PRN SQ 11/25/16 16:15 12/25/16 16:14 Miscellaneous Information 1 ea 1 ea UD PRN N/A 11/25/16 16:57 12/25/16 16:56 Piperacillin Sod/ Tazobactam Sod/ Dextrose (Zosyn Iv/D5 100ml) 115 ml @ 28.75 mls/ hr Q8H IV 11/26/16 00:00 12/05/16 23:59 11/28/16 08:38 28.75 MLS/HR Vancomycin HCl (Consult) 1 ea UD PRN N/A 11/25/16 18:00 12/25/16 17:59 Piperacillin Sod/ Tazobactam Sod (Consult) 1 ea UD PRN N/A 11/25/16 18:00 12/25/16 17:59 Aspirin (Ecotrin Tab) 81 mg DAILY PO 11/26/16 09:00 12/26/16 08:59 11/28/16 08:25 81 MG Bisacodyl (Dulcolax Supp) 5 mg DAILY PRN [place] 11/25/16 19:00 12/25/16 18:59 Midodrine (Proamatine Tab) 2.5 mg TID@0700,1200,1700 PO 11/26/16 07:00 12/26/16 06:59 11/28/16 08:24 2.5 MG Ondansetron HCl (Zofran Tab) 4 mg QAM PRN PO 11/25/16 19:00 12/25/16 18:59 Ranitidine HCl (zANTac TAB) 150 mg DAILY PO 11/26/16 09:00 12/26/16 08:59 11/28/16 08:28 150 MG Senna/Docusate Sodium (Senokot S Tab) 2 tab AMHS PO 11/25/16 21:00 12/25/16 20:59 11/27/16 21:22 2 TAB Zolpidem Tartrate (Ambien Tab) 5 mg HS PRN PO 11/25/16 19:00 12/25/16 18:59 Miscellaneous Information (Order Awaiting Action) 1 ea BID17 N/A 11/26/16 09:00 12/26/16 08:59 Pantoprazole Sodium (Protonix Tab) 40 mg DAILY PO 11/26/16 09:00 12/26/16 08:59 11/28/16 08:27 40 MG Menthol (Nice Jossie) 1 jossie Q2 PRN PO 11/25/16 19:00 12/25/16 18:59 Tizanidine HCl (Zanaflex Tab) 4 mg TID PO 11/25/16 21:00 12/25/16 20:59 11/28/16 08:27 4 MG Oxycodone HCl (Roxicodone Immediate Rel Tab) 5 mg Q4 PRN PO 11/25/16 19:00 12/09/16 18:59 Gabapentin (Neurontin Cap) 200 mg BID PO 11/25/16 21:00 12/25/16 20:59 11/28/16 08:26 200 MG Polyethylene (Miralax Powder Packet) 17 gm DAILY PO 11/26/16 09:00 12/26/16 08:59 Gabapentin (Neurontin Cap) 100 mg DAILY@1200 PO 11/26/16 12:00 12/26/16 11:59 11/27/16 11:48 100 MG Levothyroxine Sodium (Synthroid Tab) 75 mcg DAILYBB PO 11/27/16 06:00 12/27/16 05:59 11/28/16 05:34 75 MCG Insulin Glargine (Lantus Solostar Pen) 11 unit BID SC 11/28/16 09:00 12/28/16 08:59 11/28/16 08:29 11 UNIT Objective Vital Signs Date Time Temp Pulse Resp B/P Pulse Ox O2 Delivery O2 Flow Rate FiO2 11/28/16 08:17 37.0 71 20 115/72 92 Room Air 11/28/16 04:11 36.6 54 20 84/56 97 Room Air 11/28/16 04:00 Room Air 11/28/16 00:10 36.9 56 19 87/57 95 Room Air 11/28/16 00:00 Room Air 11/27/16 20:16 38.1 76 20 87/55 93 Room Air 11/27/16 20:00 Room Air 11/27/16 16:01 36.9 54 20 78/48 92 73/44 11/27/16 16:00 Room Air 11/27/16 14:19 72 95 11/27/16 12:00 Room Air 11/27/16 11:37 36.9 78 18 94/66 95 Physical Exam General Appearance: no apparent distress, + pertinent finding (no apparent distress, chronic motor dysfunction, R UE cannot move; lower extremities are weak, foot drop b/l, wrist dysfunction on L UE) Respiratory/Chest: chest non-tender, lungs clear, normal breath sounds, no respiratory distress, no accessory muscle use Cardiovascular: regular rate, rhythm, no edema, no murmur Extremities: no pedal edema, + pertinent finding (b/l chronic foot deformity) Laboratory Results Last 24 Hours Test 11/27/16 11:21 11/27/16 16:38 11/27/16 20:41 11/28/16 06:39 Bedside Glucose 132 mg/dl 134 mg/dl 179 mg/dl 125 mg/dl Test 11/28/16 07:06 White Blood Count 2.99 K/uL Red Blood Count 3.45 M/uL Hemoglobin 11.3 g/dL Hematocrit 33.8 % Mean Corpuscular Volume 98.0 fL Mean Corpuscular Hemoglobin 32.8 pg Mean Corpuscular Hemoglobin Concent 33.4 g/dl RDW Standard Deviation 55.4 fL RDW Coefficient of Variation 15.5 % Platelet Count 110 K/uL Mean Platelet Volume 11.7 fL Sodium Level 140 mmol/L Potassium Level 3.7 mmol/L Chloride Level 108 mmol/L Carbon Dioxide Level 23 mmol/L Anion Gap 9.0 mmol/L Blood Urea Nitrogen 25 mg/dl Creatinine 2.20 mg/dl Est Creatinine Clear Calc Drug Dose 30.7 ml/min Estimated GFR () 33.0 Estimated GFR (Non- 28.5 BUN/Creatinine Ratio 11.2 Random Glucose 128 mg/dl Calcium Level 7.8 mg/dl Magnesium Level 2.0 mg/dl Random Vancomycin Level 22.2 mcg/ml Assessment and Plan This is a 76 year old male with a PMH of Cerebral Palsy, hx. of epidural abscess and discitis, neurogenic bladder, orthostatic hypotension, DM2, hypothyroidism sent over by [facility] secondary to fevers/chills, elevated creatinine, dehydration Acute Kidney Injury Neurogenic Bladder 11/28 creat down to 2.2 likely secondary to dehydration good urination continue IVFs today, decrease rate slightly due to improved PO intake 11/27 continue fluids for today no urinary retention noted as per nursing creat from 2.9 to 2.6 lactic acid still elevated 11/26 urinary retention? will need I's and O's assure that condom catheter is functioning may need Puentes catheter cont IVFs 11/25 secondary to dehydration? possibly UTI; patient has neurogenic bladder condom catheter not working; penis noted to be in retracted, which could be another cause of his kidney injury Either way, we will give fluids for now, monitor urine output check UA will give antibiotics urine culture Lactic Acidosis Possible Aspiration Pneumonia 11/28 cultures with no growth to date will d/c Vanco; continue Zosyn for now, switch to Augmentin on discharge 11/27 continue Zosyn + Vanco 11/26 lactic acid trending down now, after IVF rate increased continue Zosyn and Vancomycin blood and urine cultures pending 11/25 patient does have a history of sepsis, has had fevers the past few days at [facility] possible lung source, as CXR shows possible pneumonitis will add Zosyn + Vancomycin - pharmacy for dosing blood cultures pending hx. of MRSA in the past, hx. of discitis, epidural abscess, recurrent UTIs DM2 sliding scale pharmacy glycemic control consult Hypothyroidism TSH was high Synthroid dose increased DVT ppx subq heparin FULL CODE
--- NOTE | 2016-11-28 11:53 | Pharmacy Progress Note ---
Glycemic Control: Progress Nt Date of Service November 28, 2016. Scope Glycemic Pharmacist consulted for glycemic control and to write orders per [facility] inpatient glycemic control protocol. Objective Accuchecks BSG (last 24hrs): Test 11/27/16 16:38 11/27/16 20:41 11/28/16 06:39 11/28/16 07:06 Bedside Glucose 134 mg/dl (70-99) 179 mg/dl (70-99) 125 mg/dl (70-99) Random Glucose 128 mg/dl (70-99) Test 11/28/16 11:23 Bedside Glucose 165 mg/dl (70-99) Laboratory Data (last 24hrs) HbA1c: Test 11/26/16 07:16 Hemoglobin A1c 8.2 % (4.5-5.6) H Recent Pertinent Medications Outpatient Anti-diabetic Regimen: * Metformin 500mg PO BIDM The patient is currently receiving: * Basal insulin: Lantus 10 units every 12 hours * Correctional Insulin: Novolog Correction per scale ACHS Goal Range: Low 110 mg/dL - High 140 mg/dL Correction Factor: 30mg/dL/unit * Prandial insulin: Per carb ratio of 1 unit per 10 grams CHO consumed * Oral Agents: On hold for admission Risk Factors for Insulin Resistance: * Infection * Diet Assessment & Plan ASSESSMENT: * See progress note from 11/26 for more background info, in short: * Pt receiving weight based SQ basal bolus insulin regimen for hyperglycemia secondary to baseline DM (metformin on hold) & stress/infection * Weight and stress of 2 regimen initiated on 11/26, regimen has been titrated daily based on BSG trends. * Patient is currently receiving an average of ~20-40 units of insulin per day depending on PO intake * 20 units of basal insulin * 0-5 units of prandial/correctional insulin with meals * BSGs ranging 107 - 179 over the past 24hrs * Changes needed to insulin regimen: * AM Fasting BSG = 107 --> 125mg/dl. trending upwards with aggressive basal insulin dose decrease yesterday * Total daily dose of ~ 40 units is yielding adequate glycemic control * Post-prandial BSGs are in range therefore no changes needed to CF/CR PLAN FOR INPATIENT GLYCEMIC CONTROL: SQ basal bolus insulin regimen based estimated total daily dose ~ 40 units * Hold outpatient oral diabetes medications * Basal insulin * Lantus 11 units SQ BID * Bolus Insulin * NovoLog per scale ACHS or Q6hrs while NPO * Goal Range: Low 110 mg/dL - High 140 mg/dL * Correction Factor: 30 mg/dL/unit * Nutritional / Prandial insulin per carb ratio of 1 unit per 10 grams CHO consumed * Please note that the plan above was derived based on current level of insulin resistance and hospital stress. These recommendations are appropriate for inpatient admission only. Plan of care upon discharge will need to be reassessed to avoid potential outpatient hypo/hyperglycemia. Thank you. Looking ahead to discharge: * Pt is maintained on metformin as an outpatient with adequate control. However , based on JULITA pt may not be able to continue metformin at discharge * Pt may need SQ insulin regimen in place of metformin * Probably best to utilize separate basal & prandial insulins (rather than pre- mixed) d/t inconsistent PO intake. * Recommend: * Basal insulin: Lantus or NPH 10 units SQ BID * Bolus insulin: NovoLog/Humalog/Apidra/Regular insulin 5 units with meals. Hold if meal is skipped. * Type/brand of insulin dependent on insurance coverage.
[2016-11-28 12:29] VITALS: BP 91/57; PULSE 63; TEMP 36.9; O2SAT 94
[2016-11-28 15:13] VITALS: BP 94/60; PULSE 73; TEMP 37.9; O2SAT 100
[2016-11-28 19:11] VITALS: BP 102/64; PULSE 81; TEMP 38.2; O2SAT 95
[2016-11-28] MEDS: ACETAMINOPHEN 325 MG TAB PO PRN (19:18)
[2016-11-29 00:28] VITALS: BP 92/52; PULSE 56; TEMP 36.8; O2SAT 97
[2016-11-29] MEDS: LEVOTHYROXINE 75 MCG TAB PO SCH (04:47)
[2016-11-29 04:52] VITALS: BP 81/52; PULSE 54; TEMP 36.4; O2SAT 96
[2016-11-29] MEDS: HEPARIN SOD 5000 UNIT/0.5 ML CARP SQ SCH ×3 (06:00→21:53)
[2016-11-29] MEDS: PIPERACILL/TAZOBAC IV 3.375 GM in DEXTROSE 5% 100ML 100 ML IV SCH ×3 (08:06)
[2016-11-29] MEDS: RANITIDINE HCL 150 MG TAB PO SCH (08:07)
[2016-11-29] MEDS: ASPIRIN 81 MG ECTAB PO SCH (08:07)
[2016-11-29] MEDS: GABAPENTIN 100 MG CAP PO SCH ×3 (08:08→21:51)
[2016-11-29] MEDS: DOCUSATE SODIUM/SENNA 50/8.6MG TAB PO SCH ×2 (08:09→20:55)
[2016-11-29] MEDS: POLYETHYLENE (MIRALAX) 17 GM PACK PO SCH (08:09)
[2016-11-29] MEDS: PANTOprazole SOD 40 MG TAB PO SCH (08:10)
[2016-11-29] MEDS: KETOCONAZOLE SCH ×2 (08:10→18:34)
[2016-11-29] MEDS: MIDODRINE 2.5 MG TAB PO SCH ×3 (08:11→19:01)
[2016-11-29] MEDS: INSULIN ASPART 100 UNITS/ML 3 ML PEN SC SCH ×4 (08:15→20:51)
[2016-11-29] MEDS: INSULIN GLARGINE SOLOSTAR 100 UNITS/ML 3 ML PEN SC SCH ×2 (08:16→21:51)
--- NOTE | 2016-11-29 11:40 | Progress Note ---
Internal Med Progress Note Date of Service: November 29, 2016. Provider Documentation: SUBJECTIVE: Patient is feeling better. Does have some cough, but no significant worsening or sputum production. No chest pain, SOB, nausea, vomiting, diarrhea, abdominal pain Chronic tetrapelgia Not on oxygen Eager to be discharged OBJECTIVE: Vital Signs-as noted below Exam: General Appearance: no apparent distress, + pertinent finding (no apparent distress, chronic motor dysfunction, Rt UE cannot move; lower extremities are weak, foot drop b/l, wrist dysfunction on L UE) Respiratory/Chest: chest non-tender, lungs clear, normal breath sounds, no respiratory distress, no accessory muscle use Cardiovascular: regular rate, rhythm, no edema, no murmur Extremities: no pedal edema, + pertinent finding (b/l chronic foot deformity) Lab data as noted below. ASSESSMENT & PLAN: This is a 76 year old male with a PMH of Cerebral Palsy, history of epidural abscess and discitis, neurogenic bladder, orthostatic hypotension, DM2, hypothyroidism sent over by [facility] secondary to fevers/chills, elevated creatinine, dehydration. JULITA- Improving Likely pre renal secondary to volume depletion -Baseline: 1.2. Does have hx of neurogenic bladder. Uses condom catheter at [facility]. -IVF to be continued- decrease rate to 75 cc/hour -Monitor POSSIBLE ASPIRATION PNEUMONIA -Improving. Initially came in with sepsis -S/P IV Vancomycin, On IV Zosyn for possible aspiration pneumonia--> Change to Augmentin 500 mg PO BID -Blood Cultures- negative; Lactic acidosis - repeat lactic acid in AM -CXR- possible infiltrate; hx of MRSA in past with hx of discitis, epidural abscess, recurrent UTIs PANCYTOPENIA -Related to antibiotics ? -No signs of bleeding -Change antibiotics to Augmentin from IV Zosyn -Monitor while on dvt prophylaxis DM2 -ISS -Pharmacy glycemic control consult Hypothyroidism TSH was high -Synthroid dose increased DVT ppx subq heparin FULL CODE DISPOSITION Okay to transfer to med-surg Likely discharge in AM if afebrile and creatinine continues to improve. Vital Signs: Date Time Temp Pulse Resp B/P Pulse Ox O2 Delivery O2 Flow Rate FiO2 11/29/16 08:00 Room Air 11/29/16 04:52 36.4 54 20 81/52 96 Room Air 11/29/16 04:00 Room Air 11/29/16 00:28 36.8 56 20 92/52 97 Room Air 11/29/16 00:01 Room Air 11/28/16 20:00 Room Air 11/28/16 19:11 38.2 81 22 102/64 95 Room Air 11/28/16 16:00 Room Air 11/28/16 15:13 37.9 73 20 94/60 100 Room Air 11/28/16 12:29 36.9 63 19 91/57 94 Room Air 11/28/16 12:00 Room Air Lab Results: Results Past 24 Hours Test 11/28/16 16:04 11/28/16 21:11 11/29/16 05:52 11/29/16 06:50 Range/Units Bedside Glucose 115 126 99 70-99 mg/dl Creatinine 2.00 0.60-1.40 mg/dl Est Creatinine Clear Calc Drug Dose 33.8 ml/min Estimated GFR () 37.0 Estimated GFR (Non- 31.9
[2016-11-29 12:15] VITALS: BP 137/86; PULSE 57; TEMP 36.9; O2SAT 95
--- NOTE | 2016-11-29 13:22 | Pharmacy Progress Note ---
Glycemic: Assessment & Plan Date of Service November 29, 2016. Assessment & Plan The patient is currently receiving 32 units of insulin per day. BSGs ranging 99 - 159 mg/dl over the past 24hrs. * Basal insulin: Lantus 11 units every 12 hours * Correctional Insulin: Novolog Correction per scale ACHS Goal Range: Low 110 mg/dL - High 140 mg/dL Correction Factor: 30 mg/dL/unit * Prandial insulin: Per carb ratio of 1 unit per 10 grams CHO consumed BSGs continue to improve, no changes needed to inpatient regimen at this time. Will need to monitor fasting BSG closely and decrease basal back to 10 units BID if fasting falls to less than 90 mg/dL. Pharmacy will continue to monitor patient daily and write orders per [facility] inpatient glycemic control protocol. Thanks. * Please note that the plan above was derived based on current level of insulin resistance and hospital stress. These recommendations are appropriate for inpatient admission only. Plan of care upon discharge will need to be reassessed to avoid potential outpatient hypo/hyperglycemia.
[2016-11-29 14:10] VITALS: BP 110/69; PULSE 53; TEMP 36.8; O2SAT 97
[2016-11-29 15:56] VITALS: BP 138/77; PULSE 53; TEMP 36.8; O2SAT 95
[2016-11-29] MEDS: SODIUM CHLORIDE 0.9% 1000ML 1,000 ML IV SCH ×2 (16:10→21:48)
[2016-11-29] MEDS ORDERED: AMOXICILLIN/CLAVULANATE TAB 500 MG TAB PO SCH (16:45)
[2016-11-29 22:56] VITALS: BP 100/63; PULSE 60; TEMP 36.9; O2SAT 95
[2016-11-30] MEDS: MIDODRINE 2.5 MG TAB PO SCH ×2 (06:08→13:55)
[2016-11-30] MEDS: LEVOTHYROXINE 75 MCG TAB PO SCH (06:08)
[2016-11-30] MEDS: HEPARIN SOD 5000 UNIT/0.5 ML CARP SQ SCH ×2 (06:09→14:34)
[2016-11-30 06:58] VITALS: BP 117/68; PULSE 60; TEMP 36.9; O2SAT 96
[2016-11-30 08:27] LABS: HEMATOCRIT 33.5 % (42-52); MEAN CELL VOLUME 94.6 fL (80-100); MEAN CORPUSCULAR HEMOGLOBIN 31.6 pg (25-34); MEAN CORPUSCULAR HGB CONC 33.4 g/dl (32-36); MEAN PLATELET VOLUME 11.3 fL (7.4-10.4); PLATELET COUNT 126 K/uL (130-400); RED BLOOD COUNT 3.54 M/uL (4.7-6.1); WHITE BLOOD COUNT 4.38 K/uL (4.8-10.8)
[2016-11-30 08:57] LABS: CALCIUM 7.9 mg/dl (8.5-10.1)
[2016-11-30 09:04] LABS: BUN/CREATININE RATIO 6.8 (10-20); CREATININE 1.7 mg/dl (0.60-1.40); POTASSIUM 3.2 mmol/L (3.5-5.1)
[2016-11-30] MEDS: POLYETHYLENE (MIRALAX) 17 GM PACK PO SCH (09:36)
[2016-11-30] MEDS: KETOCONAZOLE SCH ×2 (09:36→16:58)
[2016-11-30] MEDS: GABAPENTIN 100 MG CAP PO SCH ×2 (09:36→14:34)
[2016-11-30] MEDS: DOCUSATE SODIUM/SENNA 50/8.6MG TAB PO SCH (09:37)
[2016-11-30] MEDS: INSULIN ASPART 100 UNITS/ML 3 ML PEN SC SCH ×2 (09:43→13:55)
[2016-11-30] MEDS: INSULIN GLARGINE SOLOSTAR 100 UNITS/ML 3 ML PEN SC SCH (09:44)
[2016-11-30] MEDS: PANTOprazole SOD 40 MG TAB PO SCH (11:15)
[2016-11-30] MEDS: RANITIDINE HCL 150 MG TAB PO SCH (11:15)
[2016-11-30] MEDS: ASPIRIN 81 MG ECTAB PO SCH (11:15)
[2016-11-30] MEDS ORDERED: SODIUM CHLORIDE 0.9% 1000ML 1,000 ML IV SCH (11:30)
--- NOTE | 2016-11-30 12:52 | Progress Note ---
Internal Med Progress Note Date of Service: November 30, 2016. Provider Documentation: SUBJECTIVE: Patient is eager to be discharged and wants to be out of here. Developed a rash all over, pruritic, secondary to Augmentin ? S/P benadryl no itching and rash is resolving. Does have some cough, but no significant worsening or sputum production. No chest pain, SOB, nausea, vomiting, diarrhea, abdominal pain Chronic tetrapelgia Not on oxygen OBJECTIVE: Vital Signs-as noted below Exam: General Appearance: no apparent distress, + pertinent finding (no apparent distress, chronic motor dysfunction, Rt UE cannot move; lower extremities are weak, foot drop b/l, wrist dysfunction on L UE) Respiratory/Chest: chest non-tender, lungs clear, normal breath sounds, no respiratory distress, no accessory muscle use Cardiovascular: regular rate, rhythm, no edema, no murmur Extremities: no pedal edema, + pertinent finding (b/l chronic foot deformity) Skin: Rash, pruritic, erythematous all over- extremities, trunk, chest and back - resolving Lab data as noted below. ASSESSMENT & PLAN: This is a 76 year old male with a PMH of Cerebral Palsy, history of epidural abscess and discitis, neurogenic bladder, orthostatic hypotension, DM2, hypothyroidism sent over by [facility] secondary to fevers/chills, elevated creatinine, dehydration. JULITA - Resolving Likely pre renal secondary to volume depletion -Baseline: 1.2-1.4. Does have hx of neurogenic bladder. Uses condom catheter at [facility]. -Creatinine trending down to 1.7 from 2.90. -IVF - ok to discontinue -Monitor closely outpatient. Repeat BMP on 12/02/16 POSSIBLE ASPIRATION PNEUMONIA -Improved. Initially came in with sepsis which has resolved. -S/P IV Vancomycin, On IV Zosyn for possible aspiration pneumonia--> Changed to Augmentin 500 mg PO BID on 11/29/16--> Developed rash--> Discontinued and will start him on Clindamycin to complete course of 7 days of antibiotics. -Blood Cultures- negative; Lactic acidosis - repeat lactic acid today- normal -CXR- possible infiltrate; hx of MRSA in past with hx of discitis, epidural abscess, recurrent UTIs HYPOKALEMIA Replaced -Monitor BMP to be repeated on 12/02/16 PANCYTOPENIA- Improved -Related to antibiotics ? -No signs of bleeding -Changed antibiotics from zosyn to clindamycin -Monitor outpatient DM2: -ISS -Pharmacy glycemic control consult. Appreciate inputs. HYPOTHYROIDISM: TSH was high -Synthroid dose Increased DVT PROPHYLAXIS SQ Heparin FULL CODE DISPOSITION: Eager to be discharged to [facility]. Creatinine , rash improving . Okay to discharge back to [facility] today with PT/OT recommended Vital Signs: Date Time Temp Pulse Resp B/P Pulse Ox O2 Delivery O2 Flow Rate FiO2 11/30/16 07:30 Room Air 11/30/16 06:58 36.9 60 18 117/68 96 Room Air 11/29/16 23:55 Room Air 11/29/16 22:56 36.9 60 18 100/63 95 Room Air 11/29/16 15:56 36.8 53 18 138/77 95 Room Air 11/29/16 15:50 Room Air 11/29/16 14:10 36.8 53 18 110/69 97 Room Air Lab Results: Results Past 24 Hours Test 11/29/16 17:09 11/29/16 20:47 11/30/16 07:55 11/30/16 08:05 Range/Units Bedside Glucose 123 106 73 70-99 mg/dl White Blood Count 4.38 4.8-10.8 K/uL Red Blood Count 3.54 4.7-6.1 M/uL Hemoglobin 11.2 14.0-18.0 g/dL Hematocrit 33.5 42-52 % Mean Corpuscular Volume 94.6 80-100 fL Mean Corpuscular Hemoglobin 31.6 25-34 pg Mean Corpuscular Hemoglobin Concent 33.4 32-36 g/dl RDW Standard Deviation 51.7 36.4-46.3 fL RDW Coefficient of Variation 15.0 11.5-14.5 % Platelet Count 126 130-400 K/uL Mean Platelet Volume 11.3 7.4-10.4 fL Sodium Level 144 136-145 mmol/L Potassium Level 3.2 3.5-5.1 mmol/L Chloride Level 111 98-107 mmol/L Carbon Dioxide Level 21 21-32 mmol/L Anion Gap 12.0 3-11 mmol/L Blood Urea Nitrogen 12 7-18 mg/dl Creatinine 1.70 0.60-1.40 mg/dl Est Creatinine Clear Calc Drug Dose 39.7 ml/min Estimated GFR () 45.0 Estimated GFR (Non- 38.9 BUN/Creatinine Ratio 6.8 10-20 Random Glucose 74 70-99 mg/dl Lactic Acid Level 1.5 0.4-2.0 mmol/L Calcium Level 7.9 8.5-10.1 mg/dl Test 11/30/16 11:58 Range/Units Bedside Glucose 76 70-99 mg/dl
[2016-11-30] MEDS ORDERED: OXYC-609 PO (12:54)
[2016-11-30] MEDS ORDERED: CLIN300C10 PO (12:54)
--- NOTE | 2016-11-30 12:57 | Discharge Instructions ---
Discharge Instructions Date of Service November 30, 2016. Admission Reason for Admission: Dehydration, Fever, Hypotension Discharge Discharge Diagnosis / Problem: 1. JULITA 2. Possible aspiration pneumonia 3. Hypokalemia Discharge Goals Goal(s): Diagnostic testing, Therapeutic intervention Activity Recommendations Activity Limitations: resume your previous activity (as tolerated prior to admission. PT/OT recommended outpatient) . Instructions / Follow-Up Instructions / Follow-Up MEDICATION CHANGES: 1. New medication: Clindamycin 300 mg PO QID x 5 more days to complete a 10 day course of antibiotics 2. Lisinopril, Metformin held as creatinine is 1.7 - improved, but still elevated. Consider re starting once creatinine stabilizes MONITOR: 1. Rash- most likely related to Augmentin, which is resolving after a dose of Benadryl. Monitor closely. May require more doses of benadryl till rash fully subsides 2. BMP to be done on 12/02/16 to follow up creatinine, potassium FOLLOW UP 1. Follow up with PCP in 1 week PT/OT recommended Current Hospital Diet Patient's current hospital diet: Diabetes Type 2 Diet, Renal Diet Discharge Diet Recommended Diet: AHA Diet (Heart Healthy), Low Sodium Diet (2gm Na) Pending Studies Studies pending at discharge: no Laboratory Results Hemoglobin A1c Test 11/26/16 07:16 Range/Units Estimated Average Glucose 189 mg/dl Hemoglobin A1c 8.2 H 4.5-5.6 % Medical Emergencies . Who to Call and When: Medical Emergencies: If at any time you feel your situation is an emergency, please call 911 immediately. . Non-Emergent Contact Non-Emergency issues call your: Primary Care Provider . . "Provider Documentation" section prepared by Rama Hicks. . VTE Core Measure Inpt VTE Proph given/why not?: Unfractionated heparin SQ
--- NOTE | 2016-11-30 13:00 | Discharge Summary ---
Discharge Summary Date of Service November 30, 2016. Discharge Summary Admission Date: November 25, 2016 at 16:13 Discharge Date: November 30, 2016 Discharge Disposition: half-way facility ([facility]. PT/OT recommended) Principal Diagnosis: 1. Possible aspiration pneumonia 2. JULITA 3. Hypokalemia 4. Probable Drug induced rash Secondary Diagnoses/Problems: 1. Cerebral palsy hx 2. DM2 3. Hypothyroidism 4. Ambulatory dysfunction/Chronic tetraplegia Procedures: Tele monitoring CXR Renal ultrasound PT/OT Antibiotics IV IV fluids Consultations: None Pending Studies/Follow-Up: Instructions / Follow-Up Instructions / Follow-Up MEDICATION CHANGES: 1. New medication: Clindamycin 300 mg PO QID x 5 more days to complete a 10 day course of antibiotics 2. Lisinopril, Metformin held as creatinine is 1.7 - improved, but still elevated. Consider re starting once creatinine stabilizes MONITOR: 1. Rash- most likely related to Augmentin, which is resolving after a dose of Benadryl. Monitor closely. May require more doses of benadryl till rash fully subsides 2. BMP to be done on 12/02/16 to follow up creatinine, potassium FOLLOW UP 1. Follow up with PCP in 1 week PT/OT recommended Medication Reconciliation New Medications: Clindamycin Hcl (Clindamycin Hcl) 300 Mg Cap 300 MG PO QID for 5 Days Continued Medications: Acetaminophen (Tylenol) 325 Mg Tab 650 MG PO Q4 PRN for Pain Acetaminophen Tab (Tylenol) 325 Mg Tab 650 MG PO Q4 PRN for Fever TEMP >100 , MILD-SEVERE Aspirin (Aspirin) 81 Mg Tab 81 MG PO DAILY Bisacodyl (Dulcolax) 10 Mg Sup 1 SUPP [place] DAILY PRN for Constipation Camphor & Menthol (Sarna) 1 Lot Lot 1 APPLN TOP QID PRN for UNDECIDED Gabapentin (Neurontin) 100 Mg Cap 200 MG PO AMPM Gabapentin (Neurontin) 100 Mg Cap 100 MG PO NOON Ipratropium-Albuterol (Duoneb) 3 Ml Nebu 1 TREATMENT INH Q4H PRN for Wheezing Ketoconazole (Topical) (Ketoconazole) 2 % Sha 1 APPLN TOP 2XWK Lansoprazole (Prevacid) 15 Mg Capcr 15 MG PO DAILY Levothyroxine Sodium (Levothyroxine Sodium) 50 Mcg Tab 1 TAB PO DAILY Magnesium Hydroxide (Milk Of Magnesia) 30 Ml Susp 30 ML PO DAILY PRN for Constipation Menthol (Mouth-Throat) (Miracle Cough Drops) 7 Mg Jossie 1 DROP PO Q2 PRN for COUGH/SORE THROAT Midodrine Hcl (Midodrine Hcl) 2.5 Mg Tab 2.5 MG PO TID Ondansetron Hcl (Zofran) 4 Mg Tab 4 MG PO QAM PRN for Nausea Oxycodone HCl (Oxycodone HCl) 5 Mg Tab 5 MG PO BID, #20 (This prescription has been renewed) Polyethylene Glycol 3350 (Miralax) 1 Pow Pow 17 GM PO DAILY Ranitidine (Zantac) 150 Mg Tab 150 MG PO DAILY Sennosides-Docusate Sodium (Senna-S) 1 Tab Tab 2 TAB PO AMHS Tizanidine (Zanaflex) 4 Mg Cap 4 MG PO TID Zolpidem Tartrate (Ambien) 5 Mg Tab 5 MG PO HS PRN for Insomnia Discontinued Medications: Levofloxacin (Levaquin) 750 Mg Tab 750 MG PO DAILY Lisinopril (Prinivil) 10 Mg Tab 10 MG PO DAILY HOLD IF BP IS <100/60 Metformin Hcl (Glucophage) 500 Mg Tab 500 MG PO BIDM Admission Information HPI (per Admitting provider): This is a 76 year old male with a PMH of Cerebral Palsy, hx. of epidural abscess and discitis, neurogenic bladder, orthostatic hypotension, DM2, hypothyroidism sent over by [facility] secondary to fevers/chills, elevated creatinine, dehydration. 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 He returned to [facility] in 2015 for sepsis, likely secondary to pneumonia. He has had issues with recurrent UTI due to neurogenic bladder. He was seen by Hilda Iniguez PA-C on 11/24 and 11/25 due to fevers. He was given Levaquin 750mg, but he refused IVFs. He was noted to have an increase in his creatinine level. He was tearful when initially told he would come to the ER on 11/24, but agreeable today (11/25). Also noted to have BSGs in the 500s at the nursing facility; was given 10 units of Novolog. Currently: He feels much better after receiving the IV fluids; states he feels like he's back to his baseline; he is able to move his L arm, and can move his b /l legs and has actually been ambulating at [facility]. Physical Exam (per Admitting): General Appearance: no apparent distress Head: normocephalic, atraumatic Eyes: normal inspection ENT: hearing grossly normal Neck: supple Respiratory/Chest: chest non-tender, lungs clear, normal breath sounds, no respiratory distress, no accessory muscle use Cardiovascular: no edema, no gallop, no JVD, no murmur, normal peripheral pulses, + tachycardia Abdomen/GI: normal bowel sounds, non tender, soft, no organomegaly Extremities/Musculoskelatal: + pertinent finding (significant muscle weakness, chronically) Neurologic/Psych: alert, + motor weakness Skin: normal color Hospital Course This is a 76 year old male with a PMH of Cerebral Palsy, history of epidural abscess and discitis, neurogenic bladder, orthostatic hypotension, DM2, hypothyroidism sent over by [facility] secondary to fevers/chills, elevated creatinine, dehydration. JULITA - Resolving Likely pre renal secondary to volume depletion -Baseline: 1.2-1.4. Does have hx of neurogenic bladder. Uses condom catheter at [facility]. -Creatinine trending down to 1.7 from 2.90. -IVF - ok to discontinue -Monitor closely outpatient. Repeat BMP on 12/02/16 POSSIBLE ASPIRATION PNEUMONIA -Improved. Initially came in with sepsis which has resolved. -S/P IV Vancomycin, On IV Zosyn for possible aspiration pneumonia--> Changed to Augmentin 500 mg PO BID on 11/29/16--> Developed rash--> Discontinued and will start him on Clindamycin to complete course of 7 days of antibiotics. -Blood Cultures- negative; Lactic acidosis - repeat lactic acid today- normal -CXR- possible infiltrate; hx of MRSA in past with hx of discitis, epidural abscess, recurrent UTIs HYPOKALEMIA Replaced -Monitor BMP to be repeated on 12/02/16 PANCYTOPENIA- Improved -Related to antibiotics ? -No signs of bleeding -Changed antibiotics from zosyn to clindamycin -Monitor outpatient DM2: -ISS -Pharmacy glycemic control consult. Appreciate inputs. HYPOTHYROIDISM: TSH was high -Synthroid dose Increased DVT PROPHYLAXIS SQ Heparin FULL CODE DISPOSITION: Eager to be discharged to [facility]. Creatinine , rash improving . Okay to discharge back to [facility] today with PT/OT recommended Total time spent on discharge = This includes examination of the patient, discharge planning, medication reconciliation, and communication with other providers. Discharge Instructions Discharge Goals Goal(s): Diagnostic testing, Therapeutic intervention Activity Recommendations Activity Limitations: resume your previous activity (as tolerated prior to admission. PT/OT recommended outpatient) . Instructions / Follow-Up Instructions / Follow-Up MEDICATION CHANGES: 1. New medication: Clindamycin 300 mg PO QID x 5 more days to complete a 10 day course of antibiotics 2. Lisinopril, Metformin held as creatinine is 1.7 - improved, but still elevated. Consider re starting once creatinine stabilizes MONITOR: 1. Rash- most likely related to Augmentin, which is resolving after a dose of Benadryl. Monitor closely. May require more doses of benadryl till rash fully subsides 2. BMP to be done on 12/02/16 to follow up creatinine, potassium FOLLOW UP 1. Follow up with PCP in 1 week PT/OT recommended Current Hospital Diet Patient's current hospital diet: Diabetes Type 2 Diet, Renal Diet Discharge Diet Recommended Diet: AHA Diet (Heart Healthy), Low Sodium Diet (2gm Na) Pending Studies Studies pending at discharge: no Laboratory Results Hemoglobin A1c Test 11/26/16 07:16 Range/Units Estimated Average Glucose 189 mg/dl Hemoglobin A1c 8.2 H 4.5-5.6 % Medical Emergencies . Who to Call and When: Medical Emergencies: If at any time you feel your situation is an emergency, please call 911 immediately. . Non-Emergent Contact Non-Emergency issues call your: Primary Care Provider . . "Provider Documentation" section prepared by Rama Hicks. . VTE Core Measure Inpt VTE Proph given/why not?: Unfractionated heparin SQ
[2016-11-30] MEDS ORDERED: POTASSIUM CHLORIDE 20 MEQ TABCR PO ONE (13:15)
[2016-11-30] MEDS ORDERED: METHYLPREDNISOLONE IV 80 MG in SYRINGE 0 ML IV ONE (13:15)
--- NOTE | 2016-11-30 13:38 | Pharmacy Progress Note ---
Glycemic Control: Progress Nt Date of Service November 30, 2016. Scope Glycemic Pharmacist consulted by Dr Sebly on 11/25/16 for glycemic control and to write orders per [facility] inpatient glycemic control protocol. Objective Accuchecks BSG (last 24hrs): Test 11/29/16 17:09 11/29/16 20:47 11/30/16 07:55 11/30/16 08:05 Bedside Glucose 123 mg/dl (70-99) 106 mg/dl (70-99) 73 mg/dl (70-99) Random Glucose 74 mg/dl (70-99) Test 11/30/16 11:58 Bedside Glucose 76 mg/dl (70-99) Laboratory Data (last 24hrs) Test 11/30/16 08:05 Anion Gap 12.0 mmol/L BUN/Creatinine Ratio 6.8 Blood Urea Nitrogen 12 mg/dl Creatinine 1.70 mg/dl Potassium Level 3.2 mmol/L Sodium Level 144 mmol/L White Blood Count 4.38 K/uL HbA1c: Test 11/26/16 07:16 Hemoglobin A1c 8.2 % (4.5-5.6) H Recent Pertinent Medications Outpatient Anti-diabetic Regimen: * metformin 500mg PO BID * A1c = 8.2 % 10/2016 The patient is currently receiving: * Basal insulin: * Lantus 11 units every 12 hours * Bolus Insulin: * NovoLog SQ AC/HS - Goal Range: Low 110 mg/dL - High 140 mg/dL - Correction Factor: 30 mg/dL/unit - Carb ratio of 1 unit per 10 grams CHO consumed * Oral Agents: * currently being held Risk Factors for Insulin Resistance: * Steroids: Solu-Medrol 80mg IV x1 dose * Infection: Zosyn --> Augmentin --> completed today * IVF: NSS * Diet: tolerating PO intake per CHO counts Assessment & Plan ASSESSMENT: * ADA & AACE recommend a goal blood sugar range 140-180 mg/dl for the majority of critically ill & non-critically ill patients. However, more stringent targets may be selected in individual cases. Lower goal range chose to facilitate infection healing. 11/30/16 * Fasting BSG below goal today - will reduce basal insulin based on a total daily insulin requirement of ~30units per day * NovoLog parameters appear appropriate * Solu-Medrol scheduled for today x1 dose * if this causes hyperglycemia, likely will not be long-lived secondary to short half life * Serum creatinine is trending down * hopeful for resumption of oral metformin soon (or at discharge) PLAN FOR INPATIENT GLYCEMIC CONTROL: * Basal insulin * Reduce Lantus to 8 units SQ BID * Bolus insulin * NovoLog SQ AC and HS - CF: 30 mg/dL/unit - CR: 1 unit per 10 g of CHO consumed - Goal: 110-140mg/dL per above * Oral medications: * may consider resuming metformin tomorrow or upon discharge * A1c - current * add to discharge instructions RECOMMENDATIONS FOR DISCHARGE: * Likely, Mr Schmitz can continue his home regimen at discharge. * A1c of 8.2% - goal range likely ~7-8.5% based on age and comorbidities * Please note that the plan above was derived based on current level of insulin resistance and hospital stress. These recommendations are appropriate for inpatient admission only. Plan of care upon discharge will need to be reassessed to avoid potential outpatient hypo/hyperglycemia. Thank you.
[2016-11-30 15:04] VITALS: BP 120/73; PULSE 54; TEMP 37.2; O2SAT 97
[2016-11-30 15:37] VITALS: BP 120/73; PULSE 54; TEMP 37.2; O2SAT 97
[2016-11-30] MEDS ORDERED: INSULIN GLARGINE SOLOSTAR 100 UNITS/ML 3 ML PEN SC SCH (21:00)
[2017-01-19] MEDS ORDERED: ONDA4TAB46 PO (14:01)
[2017-01-19] MEDS ORDERED: LANS15CA6 PO (14:01)
[2017-01-19] MEDS ORDERED: TIZA4CAP PO (14:01)
[2017-01-19] MEDS ORDERED: POLY335019 PO (14:01)
[2017-01-19] MEDS ORDERED: ZNTT/150 PO (14:01)
[2017-01-19] MEDS ORDERED: MIDO2.5T PO (14:01)
[2017-01-19] MEDS ORDERED: GABA-112 PO ×2 (14:01)
[2017-01-19] MEDS ORDERED: LEVO50TA6 PO (14:01)
[2017-01-19] MEDS ORDERED: ASPI-461 PO (14:01)
[2017-01-19] MEDS ORDERED: IPRASOL4 INH (14:01)
[2017-01-19] MEDS ORDERED: ZOLP5TAB PO (14:01)
[2017-01-19] MEDS ORDERED: ACET325T96 PO (14:01)
[2017-01-19] MEDS ORDERED: KETO2SHA TOP (14:01)
[2017-01-19] MEDS ORDERED: THROLOZ22 PO (14:01)
[2017-02-14] MEDS ORDERED: CPR500 PO (14:15)
[2017-04-01] MEDS ORDERED: AMB5 PO (08:57)
[2017-04-01] MEDS ORDERED: TIZA4CAP PO (08:57)
[2017-04-01] MEDS ORDERED: OXYC1TAB3 PO (08:57)
[2017-04-01] MEDS ORDERED: SULF800T23 PO (08:57)
[2017-04-27] MEDS ORDERED: [UNRECOGNIZED DRUG - CODE] TOP (08:53)
[2017-04-27] MEDS ORDERED: [UNRECOGNIZED DRUG - OTHER] TOP (08:53)
[2017-04-27] MEDS ORDERED: MENT4GEL TOP (08:53)
[2017-04-27] MEDS ORDERED: [UNRECOGNIZED DRUG - OTHER] TOP (08:53)
[2017-04-27] MEDS ORDERED: MOML PO (08:53)
[2017-04-27] MEDS ORDERED: CIPR1TAB11 PO (08:53)
[2017-04-27] MEDS ORDERED: LEVO50TA PO (08:56)
[2017-05-18] MEDS ORDERED: [UNRECOGNIZED DRUG - CODE] TOP (07:59)
[2017-05-18] MEDS ORDERED: SODI1ENE RE (07:59)
[2017-05-18] MEDS ORDERED: PRAM1LOT TOP (07:59)
[2017-05-18] MEDS ORDERED: THROLOZ22 PO (07:59)
== END 2016-11-30 17:32 | DRG 871 ==
LOC: ENRESERVTM → ENRESERVDT → EDBD 12:10 → C.EDC 12:11 → C.2T 16:13 → C.MSN 11-29 14:03
PROVIDERS: ADMIT Family Medicine; ATTEND Internal Medicine
DX: A41.9 Sepsis, unspecified organism (principal); J69.0 Pneumonitis due to inhalation of food and vomit; D61.811 Other drug-induced pancytopenia; N39.0 Urinary tract infection, site not specified; N17.9 Acute kidney failure, unspecified; N31.9 Neuromuscular dysfunction of bladder, unspecified; E86.0 Dehydration; N18.3 Chronic kidney disease, stage 3 (moderate); E11.22 Type 2 diabetes mellitus with diabetic chronic kidney disease; G80.9 Cerebral palsy, unspecified; E03.9 Hypothyroidism, unspecified; L27.0 Generalized skin eruption due to drugs and medicaments taken internally; E87.6 Hypokalemia; Z79.82 Long term (current) use of aspirin; Z79.899 Other long term (current) drug therapy; T36.0X5A Adverse effect of penicillins, initial encounter

== ENCOUNTER 2017-01-19 18:06 | Inpatient (IN) | payer OTHER ==
[~2017-01-19] VITALS: Ht 165.1 cm; Wt 85.5 kg
[~2017-01-19 18:06] MED LIST changes: +ACET325T96 PO; +ASPI-461 PO; +BISA10SU3 PR; -BISA10SU7 RE; +CAMPLOT10 TOP; -CHLO0.12 MT; +CLIN300C10 PO; -DIPH25CA5 PO; +GABA-112 PO; +LEVO50TA6 PO; -MELATAB2 PO; -MENT4GEL TOP; +MIDO2.5T PO; -NRN600 PO; +ONDA4TAB46 PO; -OXGN; +OXYC-609 PO; -OXYC1TAB3 PO; -PRMT25 PO; +SENN-104 PO; -SENN-83 PO; -SODIENE PR; +THROLOZ22 PO; +ZNTT/150 PO; +ZOLP5TAB PO; -[UNRECOGNIZED DRUG - CODE] TOP
[2017-01-19] MEDS ORDERED: SODIUM CHLORIDE 0.9% 1000ML 1,000 ML IV STA (18:57)
--- NOTE | 2017-01-19 19:42 | DIAGNOSTIC IMAGING REPORT ---
CHEST ONE VIEW PORTABLE CLINICAL HISTORY: Generalized weakness. COMPARISON STUDY: Chest radiograph November 25, 2016. FINDINGS: Incidental note is made of an anterior cervical spine fusion. There is no pneumothorax or pleural effusion. Linear left basilar opacity is suggestive of atelectasis. Cardiomediastinal silhouette is stable. There is no evidence of pulmonary edema. IMPRESSION: 1. No acute cardiopulmonary findings. 2. Linear left basilar opacity suggestive of atelectasis. Electronically signed by: Tanvir Briones M.D. 01/19/2017 7:40 PM Dictated Date/Time: 01/19/2017 7:39 PM
[2017-01-19] MEDS ORDERED: TRMCR130WC TOP (19:53)
[2017-01-19] MEDS ORDERED: NYSCR30 EXT (19:53)
[2017-01-19] MEDS ORDERED: MENT4GEL TOP (19:53)
[2017-01-19] MEDS ORDERED: WOUN1PAD TOP (19:53)
[2017-01-19] MEDS ORDERED: LINICRE TOP (19:53)
[2017-01-19] MEDS ORDERED: [UNRECOGNIZED DRUG - CODE] TOP (19:53)
[2017-01-19] MEDS ORDERED: NVLG SQ (19:53)
[2017-01-19] MEDS ORDERED: BISA10SU3 PR (19:53)
[2017-01-19] MEDS ORDERED: INSDGI SQ (19:53)
[2017-01-19] MEDS ORDERED: DOXY1TAB6 PO (19:54)
[2017-01-19] MEDS ORDERED: FURO-85 PO (19:54)
[2017-01-19 20:02] LABS: BUN/CREATININE RATIO 12.6 (10-20); CALCIUM 8.7 mg/dl (8.5-10.1); POTASSIUM 4.4 mmol/L (3.5-5.1)
[2017-01-19 20:12] LABS: ALB/GLOB RATIO 0.5 (0.9-2); CKMB/CK RATIO 3.7 (0-3.0); THYROID STIMULATING HORMONE 6.54 uIu/ml (0.300-4.500)
[2017-01-19 20:17] LABS: HEMATOCRIT 22.9 % (42-52); MEAN CELL VOLUME 102.2 fL (80-100); MEAN CORPUSCULAR HEMOGLOBIN 34.4 pg (25-34); MEAN CORPUSCULAR HGB CONC 33.6 g/dl (32-36); PLATELET COUNT 285 K/uL (130-400); RED BLOOD COUNT 2.24 M/uL (4.7-6.1); WHITE BLOOD COUNT 5.42 K/uL (4.8-10.8)
[2017-01-19] MEDS ORDERED: MIDODRINE 2.5 MG TAB PO ONE (20:34)
[2017-01-19 20:59] LABS: ANISOCYTOSIS PRESENT; BASO % 0.7 %; BASO ABS # 0.04 K/uL (0-0.2); COMPLETE YES; EOS % 7.4 %; IG% 0.9 %; LYMPH % 50.9 %; LYMPH ABS # 2.76 K/uL (1.2-3.4); MONO % 36.9 %; NEUT % 3.2 %
--- NOTE | 2017-01-19 22:07 | History and Physical ---
History & Physical Date & Time of Service: Jan 19, 2017 at 22:07 Chief Complaint: Syncope Primary Care Physician: Geo Varela M.D. History of Present Illness Source: patient, hospital records, detention Recent confinement last October 2016 for possible aspiration pneumonia. Patient seen by detention provider about 2 days ago for leg swelling noted by staff and weight gain and also an itchy red rash in the right anterior leg. Issues improved with Lasix and topical cream application, respectively. As per records, patient noted to be unresponsive today. Noted to be apneic for about 10 seconds. No witnessed seizures. Patient denies chest pain, shortness of breath or belly pain or dysuria symptoms. Chronic back pain. Patient also noted to be hypotensive at the detention. At the emergency room SBP initially 70s, currently 130s after IVF bolus. Patient can only remember that he was in bed before waking up in the ER. He feels cold. Hemoglobin noted to be 7 at the emergency room. Stool Hemoccult was negative. 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 History of epidural abscess per records Neurogenic bowel bladder as per records GERD History TIA Hypothyroidism History of MRSA Past tobacco abuse Gastroparesis per records Surgeries Back surgery Feeding tube placement Tracheal surgery EGD 2014 gastric polyps TTE EF 65-69%, no valvular heart disease, diastolic dysfunction (April 2016) Family History No pertinent family history Could not be obtained could not be obtained Social History Smoking Status: Former Smoker Alcohol Use: none Drug Use: none Marital Status: single 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) Multi-Drug Resistant Organisms History of MDRO: Yes Type of MDRO: MRSA Allergies Coded Allergies: Amoxicillin (Verified Allergy, Mild, RASH HEAD TO TOE, 01/19/17) Head to Toe Rash Clavulanic Acid (Verified Allergy, Mild, RASH HEAD TO TOE, 01/19/17) Head to Toe Rash Home Medications Scheduled Aspirin (Aspirin), 81 MG PO DAILY Bisacodyl (Dulcolax), 1 SUPP NC UD Doxycycline Hyclate (Doxycycline Hyclate), 1 TAB PO BID Furosemide (Lasix), 20 MG PO UD Gabapentin (Neurontin), 200 MG PO AMPM Gabapentin (Neurontin), 100 MG PO NOON Insulin Aspart (Novolog), 6 UNITS SQ TIDM Ketoconazole (Topical) (Ketoconazole), 1 APPLN TOP 2XWK Lansoprazole (Prevacid), 15 MG PO DAILY Levothyroxine Sodium (Levothyroxine Sodium), 1 TAB PO DAILY Menthol-Methyl Salicylate (Juliette (Icy Hot Extra Strength), 1 APPLN TOP PRN Midodrine Hcl (Midodrine Hcl), 2.5 MG PO TID Nystatin (Nystatin Cream), 0 EXT BID Oxycodone HCl (Oxycodone HCl), 5 MG PO BID Polyethylene Glycol 3350 (Miralax), 17 GM PO DAILY Ranitidine (Zantac), 150 MG PO DAILY Tizanidine (Zanaflex), 4 MG PO TID Triamcinolone Acet (Aristocort 0.1%), 1 APPLN TOP BID Scheduled PRN Acetaminophen Tab (Tylenol), 650 MG PO Q4 PRN for Fever Camphor & Menthol (Men-Phor), 1 APPLN TOP QID PRN for Ipratropium-Albuterol (Duoneb), 1 TREATMENT INH Q4H PRN for Wheezing Menthol (Mouth-Throat) ([place] Cough Drops), 1 DROP PO Q2 PRN for COUGH/SORE THROAT Menthol (Topical Analgesic) (Biofreeze), 1 APPLN TOP DAILY PRN for PRN Ondansetron Hcl (Zofran), 4 MG PO QAM PRN for Nausea Wound Dressings (Allevyn Ag Gentle Border), 1 PATCH TOP Q5DAYS PRN for Zolpidem Tartrate (Ambien), 5 MG PO HS PRN for Insomnia Miscellaneous Medications Insulin Glargine (Lantus), 10 UNITS SQ Review of Systems As per history of present illness, all other ROS negative. Physical Exam Vital Signs Date Time Temp Pulse Resp B/P (MAP) Pulse Ox O2 Delivery O2 Flow Rate FiO2 01/19/17 21:50 68 20 131/89 98 Room Air 01/19/17 20:36 55 12 99 01/19/17 20:31 01/19/17 20:06 59 13 89/62 100 01/19/17 20:01 01/19/17 19:36 69 16 108/70 99 Room Air 01/19/17 19:31 98/60 01/19/17 19:30 57 16 98/60 99 Room Air 01/19/17 19:06 56 14 98 01/19/17 19:01 80/47 01/19/17 18:52 72/51 01/19/17 18:51 62 16 72/51 93 Room Air 01/19/17 18:50 76/44 01/19/17 18:36 57 16 94 01/19/17 18:28 96 Room Air 01/19/17 18:27 61 01/19/17 18:22 71/43 01/19/17 18:10 36.8 58 16 78/54 96 Room Air General Appearance: + pertinent finding (obese, slightly anxious, chronic dysarthria) Head: + pertinent finding (chronic facial symmetry) Eyes: + pertinent finding (pale palpebral conjunctivae, dry buccal mucosa) Neck: + pertinent finding (short) Respiratory/Chest: + decreased breath sounds Cardiovascular: regular rate, rhythm Abdomen/GI: + distended Extremities/Musculoskelatal: non-tender Neurologic/Psych: + pertinent finding (coherent, chronic dysarthria, old facial asymmetry, MMTs 3 over 5) Skin: + pallor Diagnostics Laboratory Results Results Past 24 Hours Test 01/19/17 18:28 01/19/17 18:34 01/19/17 18:38 01/19/17 21:13 Range/Units White Blood Count 5.42 4.8-10.8 K/uL Red Blood Count 2.24 4.7-6.1 M/uL Hemoglobin 7.7 14.0-18.0 g/dL Hematocrit 22.9 42-52 % Mean Corpuscular Volume 102.2 80-100 fL Mean Corpuscular Hemoglobin 34.4 25-34 pg Mean Corpuscular Hemoglobin Concent 33.6 32-36 g/dl Platelet Count 285 130-400 K/uL Mean Platelet Volume 12.0 7.4-10.4 fL Neutrophils (%) (Auto) 3.2 % Lymphocytes (%) (Auto) 50.9 % Monocytes (%) (Auto) 36.9 % Eosinophils (%) (Auto) 7.4 % Basophils (%) (Auto) 0.7 % Neutrophils # (Auto) 0.17 1.4-6.5 K/uL Lymphocytes # (Auto) 2.76 1.2-3.4 K/uL Monocytes # (Auto) 2.00 0.11-0.59 K/uL Eosinophils # (Auto) 0.40 0-0.5 K/uL Basophils # (Auto) 0.04 0-0.2 K/uL RDW Standard Deviation 69.2 36.4-46.3 fL RDW Coefficient of Variation 19.2 11.5-14.5 % Immature Granulocyte % (Auto) 0.9 % Immature Granulocyte # (Auto) 0.05 0.00-0.02 K/uL Anisocytosis PRESENT Sodium Level 137 136-145 mmol/L Potassium Level 4.4 3.5-5.1 mmol/L Chloride Level 103 98-107 mmol/L Carbon Dioxide Level 26 21-32 mmol/L Anion Gap 8.0 3-11 mmol/L Blood Urea Nitrogen 25 7-18 mg/dl Creatinine 2.00 0.60-1.40 mg/dl Est Creatinine Clear Calc Drug Dose 33.1 ml/min Estimated GFR () 37.0 Estimated GFR (Non- 31.9 BUN/Creatinine Ratio 12.6 10-20 Random Glucose 199 70-99 mg/dl Calcium Level 8.7 8.5-10.1 mg/dl Magnesium Level 2.0 1.8-2.4 mg/dl Total Bilirubin 0.3 0.2-1 mg/dl Aspartate Amino Transf (AST/SGOT) 61 15-37 U/L Alanine Aminotransferase (ALT/SGPT) 55 12-78 U/L Alkaline Phosphatase 83 45-117 U/L Total Creatine Kinase 35 39-308 U/L Creatine Kinase MB 1.3 0.5-3.6 ng/ml Creatine Kinase MB Ratio 3.7 0-3.0 Total Protein 8.4 6.4-8.2 gm/dl Albumin 2.8 3.4-5.0 gm/dl Globulin 5.6 2.5-4.0 gm/dl Albumin/Globulin Ratio 0.5 0.9-2 Thyroid Stimulating Hormone (TSH) 6.540 0.300-4.500 uIu/ml Free Thyroxine 1.32 0.80-1.60 ng/dl Bedside Troponin I < 0.030 0-0.045 ng/ml Lactic Acid Level 2.3 0.4-2.0 mmol/L Diagnostic Radiology CT head: Sinusitis other (atelectasis left as per my interpretation) EKG Rate 60 normal sinus rhythm no ischemia, PACs Impression Assessment and Plan AP Syncope possibly from orthostasis exacerbated by recent diuretic rx Known hx orthostatic hypotension on midodrine Rule out seizures as etio of unwitnessed syncopal event Acute on chronic anemia No obvious source of bleeding for now CRI creatinine at baseline DM 2 insulin requiring, suboptimal control as of recent hemoglobin A1c of 8.2 last October 2016 History cerebral palsy History TIA as per records History quadriplegia secondary to back surgery PCU IVF, follow lactic acid Facilitate midodrine Follow H&H, transfuse packed RBC to maintain hemoglobin greater than 8 with history of TIA EEG RE unwitnessed syncopal event Basal insulin, ISS BG goal 140-180, carb count coverage indicated for suboptimal blood sugar control Anemia workup DVT prophylaxis, SCDs Re: Anemia Full code
[2017-01-19] MEDS ORDERED: SODIUM CHLORIDE 0.9% 1000ML 1,000 ML IV SCH (22:15)
--- NOTE | 2017-01-19 22:55 | DIAGNOSTIC IMAGING REPORT ---
CT OF THE HEAD WITHOUT CONTRAST CLINICAL HISTORY: Altered mental status. Syncope. COMPARISON STUDY: Head CT April 24, 2016. CT DOSE: 614.27 mGy.cm TECHNIQUE: Helical axial images of the head were obtained without IV contrast. Automated exposure control was utilized for the study. A dose lowering technique was utilized adhering to the principles of ALARA. FINDINGS: No acute intracranial hemorrhage, midline shift or mass effect is present. Ventricular system is stable. Basilar cisterns are patent. There are no extra-axial collections. White matter hypodensity suggests small vessel disease or old lacunar infarcts. These are unchanged. There are no CT findings to suggest acute dural sinus thrombosis or acute territorial infarct. There is no calvarial fracture. Right frontal sinus is partially opacified. This was shown on prior exam. There is mild mucosal thickening of the ethmoid sinuses. IMPRESSION: 1. No acute intracranial findings. 2. Right frontal and ethmoid sinus mucosal thickening, as described above. Electronically signed by: Tanvir Briones M.D. 01/19/2017 10:54 PM Dictated Date/Time: 01/19/2017 10:50 PM
[2017-01-19] MEDS ORDERED: GLUCAGON FOR INJ 1 MG VIAL SQ PRN (23:15)
[2017-01-19] MEDS ORDERED: GLUCOSE 10 TABS/TUBE PO PRN (23:15)
[2017-01-19] MEDS ORDERED: GLUCOSE 40% GEL 15 GM TUBE PO PRN (23:15)
[2017-01-19] MEDS ORDERED: NITROGLYCERIN 0.4 MG SL PER TAB CHARGE SL PRN (23:15)
[2017-01-19] MEDS ORDERED: OXYCODONE/ACETAMINOPHEN 5-325 TAB PO PRN (23:15)
[2017-01-19] MEDS ORDERED: HYDROmorphone INJ 0.5 MG/0.5 ML SYR IV PRN (23:15)
[2017-01-19] MEDS ORDERED: ONDANSETRON INJ 2 MG/ML 2 ML VIAL IV PRN (23:15)
[2017-01-19] MEDS ORDERED: IV FLUIDS COMPLETED PRN (23:15)
[2017-01-19] MEDS ORDERED: BISACODYL 10 MG SUPP PR PRN (23:15)
[2017-01-19] MEDS ORDERED: DEXTROSE 50% 50 ML SYR IV PRN (23:15)
[2017-01-19] MEDS ORDERED: POLYETHYLENE (MIRALAX) 17 GM PACK PO PRN (23:15)
[2017-01-19] MEDS ORDERED: SODIUM CHLORIDE 0.9% 1000ML 1,000 ML IV ONE (23:30)
[2017-01-19 23:36] LABS: INR 1.1 (0.9-1.1); PARTIAL THROMBOPLASTIN RATIO 1.1; PROTHROMBIN TIME (PATIENT) 12.3 SECONDS (9.0-12.0)
[2017-01-19 23:37] VITALS: BP 153/92; PULSE 81; TEMP 37.1; O2SAT 99; Ht 165.1 cm; Wt 85.5 kg
[2017-01-20] VITALS (15 sets, daily range): BP systolic 118–165; BP diastolic 71–96; PULSE 71–88; TEMP 36.5–37.6; O2SAT 93–97
[2017-01-20] MEDS ORDERED: INSULIN GLARGINE SOLOSTAR 100 UNITS/ML 3 ML PEN SQ ONE (00:30)
[2017-01-20] MEDS ORDERED: INSULIN ASPART 100 UNITS/ML 3 ML PEN SC ONE (00:30)
--- NOTE | 2017-01-20 00:54 | EMERGENCY ROOM VISIT NOTE ---
History Report prepared by Sonia: Puhong Solis Under the Supervision of: Dr. Darrian Dsouza M.D. First contact with patient: 18:47 Chief Complaint: HYPOTENSION Stated Complaint: SYNCOPE History of Present Illness The patient is a 76 year old male who presents to the Emergency Room with complaints of an episode of hypotension starting prior to arrival. The patient states that he passes out when his blood pressure drops. Per the nurse, his nurse stated that he had one of these episodes and he went apneic for 7-10 seconds. She reports that she still found a pulse, but did not need to perform CPR since he came to. The patient denies chest pain, shortness of breath, lightheadedness or weakness. He has no complaints at this time. He does not remember passing out. Source of History: patient, nursing staff History Limited By: other (nature of chief complaint) Onset: prior to arrival Position: other (global) Quality: other (global) Timing: other (episode) Associated Symptoms: + LOC, No chest pain, No SOB, No weakness Note: The patient denies lightheadedness. Review of Systems See HPI for pertinent positives & negatives. A total of 10 systems reviewed and were otherwise negative. Past Medical & Surgical Medical Problems: (1) Anemia (2) Cerebral palsy (3) CKD (chronic kidney disease) stage 3, GFR 30-59 ml/min (4) DMII (diabetes mellitus, type 2) (5) Fever (6) Syncope Family History No pertinent family history Social History Smoking Status: Former Smoker Alcohol Use: none Drug Use: none Marital Status: single Housing Status: [facility] Occupation Status: disabled Current/Historical Medications Scheduled Aspirin (Aspirin), 81 MG PO DAILY Bisacodyl (Dulcolax), 1 SUPP CO UD Doxycycline Hyclate (Doxycycline Hyclate), 1 TAB PO BID Furosemide (Lasix), 20 MG PO UD Gabapentin (Neurontin), 200 MG PO AMPM Gabapentin (Neurontin), 100 MG PO NOON Insulin Aspart (Novolog), 6 UNITS SQ TIDM Ketoconazole (Topical) (Ketoconazole), 1 APPLN TOP 2XWK Lansoprazole (Prevacid), 15 MG PO DAILY Levothyroxine Sodium (Levothyroxine Sodium), 1 TAB PO DAILY Menthol-Methyl Salicylate (Juliette (Icy Hot Extra Strength), 1 APPLN TOP PRN Midodrine Hcl (Midodrine Hcl), 2.5 MG PO TID Nystatin (Nystatin Cream), 0 EXT BID Oxycodone HCl (Oxycodone HCl), 5 MG PO BID Polyethylene Glycol 3350 (Miralax), 17 GM PO DAILY Ranitidine (Zantac), 150 MG PO DAILY Tizanidine (Zanaflex), 4 MG PO TID Triamcinolone Acet (Aristocort 0.1%), 1 APPLN TOP BID Scheduled PRN Acetaminophen Tab (Tylenol), 650 MG PO Q4 PRN for Fever Camphor & Menthol (Men-Phor), 1 APPLN TOP QID PRN for Ipratropium-Albuterol (Duoneb), 1 TREATMENT INH Q4H PRN for Wheezing Menthol (Mouth-Throat) ([place] Cough Drops), 1 DROP PO Q2 PRN for COUGH/SORE THROAT Menthol (Topical Analgesic) (Biofreeze), 1 APPLN TOP DAILY PRN for PRN Ondansetron Hcl (Zofran), 4 MG PO QAM PRN for Nausea Wound Dressings (Allevyn Ag Gentle Border), 1 PATCH TOP Q5DAYS PRN for Zolpidem Tartrate (Ambien), 5 MG PO HS PRN for Insomnia Miscellaneous Medications Insulin Glargine (Lantus), 10 UNITS SQ Allergies Coded Allergies: Amoxicillin (Verified Allergy, Mild, RASH HEAD TO TOE, 01/19/17) Head to Toe Rash Clavulanic Acid (Verified Allergy, Mild, RASH HEAD TO TOE, 01/19/17) Head to Toe Rash Physical Exam Vital Signs Date Time Temp Pulse Resp B/P (MAP) Pulse Ox O2 Delivery O2 Flow Rate FiO2 01/19/17 22:30 66 01/19/17 22:26 66 18 128/90 99 Room Air 01/19/17 21:50 68 20 131/89 98 Room Air 01/19/17 20:36 55 12 99 01/19/17 20:31 01/19/17 20:06 59 13 89/62 100 01/19/17 20:01 01/19/17 19:36 69 16 108/70 99 Room Air 01/19/17 19:31 98/60 01/19/17 19:30 57 16 98/60 99 Room Air 01/19/17 19:06 56 14 98 01/19/17 19:01 80/47 01/19/17 18:52 72/51 01/19/17 18:51 62 16 72/51 93 Room Air 01/19/17 18:50 76/44 01/19/17 18:36 57 16 94 01/19/17 18:28 96 Room Air 01/19/17 18:27 61 01/19/17 18:22 71/43 01/19/17 18:10 36.8 58 16 78/54 96 Room Air Physical Exam Constitutional: Vital signs reviewed. Hypotensive. Eyes: Pupils are equal round reactive to light. Conjunctiva are noninjected. ENT: Pharynx is clear without erythema or exudate. Mucous membranes are moist. Neck supple without meningeal signs. Respiratory: Clear to auscultation bilaterally. Breath sounds are equal bilaterally. Cardiovascular: Regular rate and rhythm. No rubs or gallops. GI: Soft, nondistended and nontender. Bowel sounds are present. Musculoskeletal: No peripheral edema. No lower extremity tenderness. Integumentary: No cyanosis. Neurological: The patient is awake and alert. Paraplegic. Psychiatric: Normal affect. Medical Decision & Procedures ER Provider Diagnostic Interpretation: Radiology results as stated below per my review and the radiologist's interpretation: CHEST ONE VIEW PORTABLE CLINICAL HISTORY: Generalized weakness. COMPARISON STUDY: Chest radiograph November 25, 2016. FINDINGS: Incidental note is made of an anterior cervical spine fusion. There is no pneumothorax or pleural effusion. Linear left basilar opacity is suggestive of atelectasis. Cardiomediastinal silhouette is stable. There is no evidence of pulmonary edema. IMPRESSION: 1. No acute cardiopulmonary findings. 2. Linear left basilar opacity suggestive of atelectasis. Electronically signed by: Tanvir Briones M.D. 01/19/2017 7:40 PM Dictated Date/Time: 01/19/2017 7:39 PM Laboratory Results 01/19/17 18:28 Red Blood Count 2.24, Mean Corpuscular Volume 102.2, Mean Corpuscular Hemoglobin 34.4, Mean Corpuscular Hemoglobin Concent 33.6, Mean Platelet Volume 12.0, Neutrophils (%) (Auto) 3.2, Lymphocytes (%) (Auto) 50.9, Monocytes (%) ( Auto) 36.9, Eosinophils (%) (Auto) 7.4, Basophils (%) (Auto) 0.7, Neutrophils # (Auto) 0.17, Lymphocytes # (Auto) 2.76, Monocytes # (Auto) 2.00, Eosinophils # ( Auto) 0.40, Basophils # (Auto) 0.04 01/19/17 18:28 Test 01/19/17 18:28 01/19/17 18:38 White Blood Count 5.42 K/uL (4.8-10.8) Red Blood Count 2.24 M/uL (4.7-6.1) Hemoglobin 7.7 g/dL (14.0-18.0) Hematocrit 22.9 % (42-52) Mean Corpuscular Volume 102.2 fL (80-100) Mean Corpuscular Hemoglobin 34.4 pg (25-34) Mean Corpuscular Hemoglobin Concent 33.6 g/dl (32-36) Platelet Count 285 K/uL (130-400) Mean Platelet Volume 12.0 fL (7.4-10.4) Neutrophils (%) (Auto) 3.2 % Lymphocytes (%) (Auto) 50.9 % Monocytes (%) (Auto) 36.9 % Eosinophils (%) (Auto) 7.4 % Basophils (%) (Auto) 0.7 % Neutrophils # (Auto) 0.17 K/uL (1.4-6.5) Lymphocytes # (Auto) 2.76 K/uL (1.2-3.4) Monocytes # (Auto) 2.00 K/uL (0.11-0.59) Eosinophils # (Auto) 0.40 K/uL (0-0.5) Basophils # (Auto) 0.04 K/uL (0-0.2) RDW Standard Deviation 69.2 fL (36.4-46.3) RDW Coefficient of Variation 19.2 % (11.5-14.5) Immature Granulocyte % (Auto) 0.9 % Immature Granulocyte # (Auto) 0.05 K/uL (0.00-0.02) Anisocytosis PRESENT Prothrombin Time 12.3 SECONDS (9.0-12.0) Prothromb Time International Ratio 1.1 (0.9-1.1) Activated Partial Thromboplast Time 28.5 SECONDS (21.0-31.0) Partial Thromboplastin Ratio 1.1 Anion Gap 8.0 mmol/L (3-11) Est Creatinine Clear Calc Drug Dose 33.1 ml/min Estimated GFR () 37.0 Estimated GFR (Non- 31.9 BUN/Creatinine Ratio 12.6 (10-20) Calcium Level 8.7 mg/dl (8.5-10.1) Magnesium Level 2.0 mg/dl (1.8-2.4) Total Bilirubin 0.3 mg/dl (0.2-1) Aspartate Amino Transf (AST/SGOT) 61 U/L (15-37) Alanine Aminotransferase (ALT/SGPT) 55 U/L (12-78) Alkaline Phosphatase 83 U/L (45-117) Lactate Dehydrogenase 246 U/L (87-241) Total Creatine Kinase 35 U/L (39-308) Creatine Kinase MB 1.3 ng/ml (0.5-3.6) Creatine Kinase MB Ratio 3.7 (0-3.0) Total Protein 8.4 gm/dl (6.4-8.2) Albumin 2.8 gm/dl (3.4-5.0) Globulin 5.6 gm/dl (2.5-4.0) Albumin/Globulin Ratio 0.5 (0.9-2) Thyroid Stimulating Hormone (TSH) 6.540 uIu/ml (0.300-4.500) Free Thyroxine 1.32 ng/dl (0.80-1.60) Bedside Troponin I < 0.030 ng/ml (0-0.045) Laboratory results as reviewed by me. Medications Administered Medications (Trade) Dose Ordered Sig/Lucille Route Start Time Stop Time Status Last Admin Dose Admin Sodium Chloride 1,000 ml @ 999 mls/hr Q1H1M STAT IV 01/19/17 18:57 01/19/17 19:57 DC 01/19/17 19:15 999 MLS/HR Midodrine (Proamatine Tab) 2.5 mg 2033 ONCE PO 01/19/17 20:34 01/19/17 21:00 DC 01/19/17 21:57 2.5 MG ECG Indication: syncope Rate (beats per minute): 59 Rhythm: sinus bradycardia Findings: PAC, no acute ischemic change ED Course 1848: The patient was evaluated in room C5. A complete history and physical exam was performed. 1857: Ordered NSS 1000 ml @ 999 mls/hr IV. 1924: I reevaluated the patient and his blood pressure is 80/47. He has not received IV fluids yet. 1945: I reevaluated the patient and his pressure is now 98/60. The patient offers no complaints. The examination of his back reveals no evidence of sacral decubitus. 2204: The patient's blood pressure is 108/70. 2032: I spoke with Dr. Bolivar. We discussed the patient and test results. The patient will be further evaluated by Dr. Bolivar. 2045: I reevaluated the patient. I got consent for a blood transfusion. I performed a rectal examination and it showed brown stool and no blood. The Coag was negative. The patient denies any rectal bleeding. Medical Decision This is a 76-year-old male who presents with syncope. Differential diagnosis includes dysrhythmia, apnea, hypotension, dehydration, anemia, GI bleed, metabolic derangement, infection. I did perform a limited focused review of portions of the patient's old chart on the electronic medical record. The patient was admitted November 25 for acute kidney, hypokalemia, and possible aspiration. Medication Reconciliation: I attest that I have personally reviewed the patient' s current medication list. Blood Pressure Screening: Patient was found to have low blood pressure on screening. I did evaluate the patient as noted above. The patient presented with a syncopal episode witnessed by a batch mixer operator. He was reportedly apneic for 7 seconds but did not require CPR. Currently he has no complaints. He is hypotensive. IV access was established. The patient was placed on a continuous radiation monitor. I did treat him with a liter normal saline IV. His blood pressure did improve significantly with the IV fluids. I did order and personally review the patient's 12-lead EKG and chest x-ray as described above. I did order and review the patient's blood work as noted in the electronic medical record. He is severely anemic. I did perform a rectal examination which showed guaiac negative brown stool. I did reassess the patient multiple times. His blood pressure did improve with IV fluids but dropped down again. I did order a type and cross and obtained written consent for transfusion of 2 units of packed RBCs. I did discuss the case with the hospitalist and case checker. Consults Time Called: 1999 Consulting Physician: Dr. Bolivar Returned Call: [address] Bolivar. We discussed the patient and test results. The patient will be further evaluated by Dr. Bolivar. Impression Primary Impression: Hypotension Additional Impressions: Syncope Severe anemia Elevated serum creatinine Scribe Attestation The scribe's documentation has been prepared under my direct and personally reviewed by me in its entirety. I confirm that the note above accurately reflects all work, treatment, procedures, and medical decision making performed by me. Departure Information Dispostion Being Evaluated By Hospitalist Referrals Geo Varela M.D. (PCP) Patient Instructions [facility] Problem Qualifiers Primary Impression: Hypotension Hypotension type: unspecified hypotension type Qualified Codes: I95.9 - Hypotension, unspecified Additional Impressions: Syncope Syncope type: unspecified Qualified Codes: R55 - Syncope and collapse
[2017-01-20 01:17] LABS: FERRITIN 755.1 ng/ml (8.0-388.0)
[2017-01-20] MEDS: ACETAMINOPHEN 325 MG TAB PO PRN ×2 (01:34→12:34)
[2017-01-20] MEDS ORDERED: PNEUMOCOCCAL ADMINISTRATION CHARGE ONE (01:45)
[2017-01-20] MEDS ORDERED: PNEUMOCOCCAL POLYSACCHARIDES 25 MCG/0.5 ML VIAL/SYR IM. ONE (01:45)
[2017-01-20 04:45] LABS: BUN/CREATININE RATIO 14.1 (10-20); CALCIUM 8.3 mg/dl (8.5-10.1); CREATININE 1.6 mg/dl (0.60-1.40)
[2017-01-20 04:56] LABS: HEMATOCRIT 25.3 % (42-52); MEAN CELL VOLUME 97.3 fL (80-100); MEAN CORPUSCULAR HEMOGLOBIN 33.1 pg (25-34); MEAN PLATELET VOLUME 10.9 fL (7.4-10.4); PLATELET COUNT 231 K/uL (130-400); WHITE BLOOD COUNT 4.31 K/uL (4.8-10.8)
[2017-01-20] MEDS ORDERED: HYDROmorphone INJ 0.5 MG/0.5 ML SYR IV PRN (05:15)
[2017-01-20] MEDS: MIDODRINE 2.5 MG TAB PO SCH ×3 (06:09→17:00)
[2017-01-20] MEDS: LEVOTHYROXINE 50 MCG TAB PO SCH (06:10)
--- NOTE | 2017-01-20 08:12 | EEG Procedure Note ---
EEG Procedure Note Date of Service Jan 20, 2017. Start / End Times Start Time: 6:51am End Time: 7:11am Referring Physician Ortega Bolivar History This is a 76-year-old male with a syncopal event. EEG for further evaluation of possible seizure etiology. Home Medication List Scheduled Aspirin (Aspirin), 81 MG PO DAILY Bisacodyl (Dulcolax), 1 SUPP IA UD Doxycycline Hyclate (Doxycycline Hyclate), 1 TAB PO BID Furosemide (Lasix), 20 MG PO UD Gabapentin (Neurontin), 200 MG PO AMPM Gabapentin (Neurontin), 100 MG PO NOON Insulin Aspart (Novolog), 6 UNITS SQ TIDM Ketoconazole (Topical) (Ketoconazole), 1 APPLN TOP 2XWK Lansoprazole (Prevacid), 15 MG PO DAILY Levothyroxine Sodium (Levothyroxine Sodium), 1 TAB PO DAILY Menthol-Methyl Salicylate (Juliette (Icy Hot Extra Strength), 1 APPLN TOP PRN Midodrine Hcl (Midodrine Hcl), 2.5 MG PO TID Nystatin (Nystatin Cream), 0 EXT BID Oxycodone HCl (Oxycodone HCl), 5 MG PO BID Polyethylene Glycol 3350 (Miralax), 17 GM PO DAILY Ranitidine (Zantac), 150 MG PO DAILY Tizanidine (Zanaflex), 4 MG PO TID Triamcinolone Acet (Aristocort 0.1%), 1 APPLN TOP BID Scheduled PRN Acetaminophen Tab (Tylenol), 650 MG PO Q4 PRN for Fever Camphor & Menthol (Men-Phor), 1 APPLN TOP QID PRN for Ipratropium-Albuterol (Duoneb), 1 TREATMENT INH Q4H PRN for Wheezing Menthol (Mouth-Throat) (Bernard Cough Drops), 1 DROP PO Q2 PRN for COUGH/SORE THROAT Menthol (Topical Analgesic) (Biofreeze), 1 APPLN TOP DAILY PRN for PRN Ondansetron Hcl (Zofran), 4 MG PO QAM PRN for Nausea Wound Dressings (Allevyn Ag Gentle Border), 1 PATCH TOP Q5DAYS PRN for Zolpidem Tartrate (Ambien), 5 MG PO HS PRN for Insomnia Miscellaneous Medications Insulin Glargine (Lantus), 10 UNITS SQ Inpatient Medication List Current Inpatient Medications Medications (Trade) Dose Ordered Sig/Lucille Route Start Time Stop Time Status Last Admin Dose Admin Midodrine (Proamatine Tab) 2.5 mg TID@0700,1200,1700 PO 01/20/17 07:00 02/19/17 06:59 Acetaminophen (Tylenol Tab) 650 mg Q4H PRN PO 01/19/17 23:15 02/18/17 23:14 01/20/17 01:34 650 MG Nitroglycerin (Nitrostat Tab) 0.4 mg UD PRN SL 01/19/17 23:15 02/18/17 23:14 Insulin Aspart (novoLOG ASPART) SLIDING SCALE If C... ACHS SC 01/20/17 07:00 02/19/17 06:59 Glucose (Glucose 40% Gel) 15-30 GRAMS 15 GRAMS... UD PRN PO 01/19/17 23:15 02/18/17 23:14 Glucose (Glucose Chew Tab) 4-8 Tablets 4 Tabl... UD PRN PO 01/19/17 23:15 02/18/17 23:14 Dextrose (Dextrose 50% 50ML Syringe) 25-50ML OF 50% DW IV FOR... UD PRN IV 01/19/17 23:15 02/18/17 23:14 Glucagon (Glucagon Inj) 1 mg UD PRN SQ 01/19/17 23:15 02/18/17 23:14 Ondansetron HCl (Zofran Inj) 4 mg Q6H PRN IV 01/19/17 23:15 02/18/17 23:14 Aspirin (Ecotrin Tab) 81 mg DAILY PO 01/20/17 09:00 02/19/17 08:59 Bisacodyl (Dulcolax Supp) 10 mg UD PRN IA 01/19/17 23:15 02/18/17 23:14 Gabapentin (Neurontin Cap) 100 mg DAILY@1200 PO 01/20/17 12:00 02/19/17 11:59 Gabapentin (Neurontin Cap) 200 mg BID PO 01/20/17 09:00 02/19/17 08:59 Insulin Glargine (Lantus Solostar Pen) 5 units BID SQ 01/20/17 09:00 02/19/17 08:59 Levothyroxine Sodium (Synthroid Tab) 50 mcg DAILYBB PO 01/20/17 06:00 02/19/17 05:59 01/20/17 06:10 50 MCG Ranitidine HCl (zANTac TAB) 150 mg DAILY PO 01/20/17 09:00 02/19/17 08:59 Lansoprazole (Prevacid Solutab) 15 mg DAILY PO 01/20/17 09:00 02/19/17 08:59 Polyethylene (Miralax Powder Packet) 17 gm DAILY PRN PO 01/19/17 23:15 02/18/17 23:14 Oxycodone/ Acetaminophen (Percocet 5-325mg Tab) 1 tab Q6H PRN PO 01/19/17 23:15 02/02/17 23:14 Miscellaneous (Iv Fluids Completed) 1 ea PRN PRN N/A 01/19/17 23:15 01/19/18 23:14 Hydromorphone HCl (Dilaudid Inj) 0.5 mg Q6H PRN IV 01/20/17 05:15 02/02/17 23:14 Description This is a 21 electrode EEG with a single channel dedicated to limited EKG. The electrodes were placed in accordance with the International 10-20 system. At the start of the recording the patient was in an awake state. Background was composed of symmetric moderate amplitude mix of alpha and beta frequencies with mild excess theta frequencies. There was a symmetric moderate amplitude posterior dominant rhythm of 6-7 Hz it was reactive to eye opening and closure. Hyperventilation was not done. Photic stimulation at various frequencies did not produce any abnormalities. There was no stage changes or sleep transients. Interpretation This is an abnormal routine EEG secondary to mild background slowing. There was no electrographic seizures or epileptiform discharges. Clinical Correlation This EEG indicates a mild encephalopathy of nonspecific etiology.
[2017-01-20] MEDS: LANSOPRAZOLE SOLUTAB 15 MG PO SCH (08:17)
[2017-01-20] MEDS: ASPIRIN 81 MG ECTAB PO SCH (08:17)
[2017-01-20] MEDS: RANITIDINE HCL 150 MG TAB PO SCH (08:17)
[2017-01-20] MEDS: GABAPENTIN 100 MG CAP PO SCH ×3 (08:17→21:06)
[2017-01-20] MEDS: INSULIN GLARGINE SOLOSTAR 100 UNITS/ML 3 ML PEN SQ SCH ×2 (08:21→21:07)
[2017-01-20] MEDS: INSULIN ASPART 100 UNITS/ML 3 ML PEN SC SCH ×4 (08:21→20:47)
[2017-01-20 09:18] LABS: ANISOCYTOSIS PRESENT; POLYCHROMASIA 1+
[2017-01-20 09:20] LABS: COMPLETE YES; EOSINOPHIL % 6.1 %; LYMPH ABS # 2.81 K/uL (1.2-3.4); LYMPHOCYTE % 65.2 %; NEUTROPHILS % 10.4 %; PLASMA CELL 0.9 %
[2017-01-20 12:45] LABS: HEMATOCRIT 28.1 % (42-52)
--- NOTE | 2017-01-20 15:27 | Progress Note ---
Internal Med Progress Note Date of Service: Jan 20, 2017. Provider Documentation: SUBJECTIVE: Patient is doing well. Denies any complaints. No dizziness, headaches, nausea, vomiting, fever, chills , cough, chest pain. Does have chronic low back pain, which is near his baseline. OBJECTIVE: Vital Signs-as noted below Exam: General Appearance: no apparent distress, + pertinent finding (no apparent distress, chronic motor dysfunction, Rt UE cannot move; lower extremities are weak, foot drop b/l, wrist dysfunction on L UE) Respiratory/Chest: chest non-tender, lungs clear, normal breath sounds, no respiratory distress, no accessory muscle use Cardiovascular: regular rate, rhythm, no edema, no murmur Extremities: no pedal edema, + pertinent finding (b/l chronic foot deformity) Lab data as noted below. ASSESSMENT & PLAN: This is a 76 year old male with a PMH of Cerebral Palsy, history of epidural abscess and discitis, neurogenic bladder, orthostatic hypotension, DM2, hypothyroidism came in for unresponsiveness/apneic x few seconds. UNRESPONSIVE EPISODE SECONDARY TO HYPOTENSION Per medical records, patient was found unresponsive, apneic for few seconds. Unable to get any history from patient as he could not recall anything. Likely syncope secondary to hypotension - Volume depletion exacerbated by recent diuretic rx (started some time ago for increasing leg swelling). Known history of orthostasis (recurrent) on midodrine. Presented with BP in 70s which responded to IVF. No signs of sepsis/infection. Has had issues with hypotension multiple times in past. -Hold midodrine due to high BP. -Work up- CT head-No acute abnormalities, Right frontal/Ethmoidal mucosal wall thickening, EEG done- Mild encephalopathy of non specific etiology ABNORMAL PERIPHERAL SMEAR -Peripheral smear was collected as part of work up for anemia, Hb 7.7 on presentation. Results- WBC- normal limits, Lymphocytes predominate in differential, morphologically unremarkable, Only rare mature granulocytes are noted. Population of immature monocytes noted. Rare blasts are identified. Red blood cells-ansisocytosis. No increase in schistocytes or spherocytes noted. No nucleated red blood cells. Platelets adequate in number with large platelets. No clumping noted. No hemolysis noted. Given the white cell differential and features, flow cytometry suggested to exclude myeloproliferative neoplasm. -Clinically no c/o weight loss, anorexia, fatigue. -Will order flow cytometry and discuss with hem/onc re: close follow up for this. CHRONIC ANEMIA -HB 7.7 on presentation -Received a unit of PRBCs today. -No signs of overt GI bleeding, Ferritin high, TIBC, Low, Vit b12/folic acid- normal, Peripheral smear- as above HX OF TIA HX OF QUADRIPLEGIA SECONDARY TO BACK SURGERY -Stable CKD III -Baseline: 1.8-2.0. Does have hx of neurogenic bladder. Uses condom catheter at [facility]. -Monitor DM2: -ISS, Accuchecks HYPOTHYROIDISM: TSH slightly high- 6.5 -Continue with synthroid DVT PROPHYLAXIS SCDS re: anemia FULL CODE DISPOSITION: PT/OT ordered Eager to be discharged. Ok to discharge to [facility] once medically stable Vital Signs: Date Time Temp Pulse Resp B/P (MAP) Pulse Ox O2 Delivery O2 Flow Rate FiO2 01/20/17 12:00 Room Air 01/20/17 11:59 37.0 73 21 143/81 (101) 96 Room Air 01/20/17 10:38 72 95 01/20/17 08:00 Room Air 01/20/17 06:54 36.8 72 21 165/84 (111) 93 Room Air 01/20/17 06:23 150/81 (104) 01/20/17 04:02 36.7 88 22 121/73 (89) 95 Room Air 01/20/17 04:00 Room Air 01/20/17 04:00 Room Air 01/20/17 02:20 36.5 80 17 129/79 94 01/20/17 01:50 36.6 74 18 118/75 95 01/20/17 01:20 36.8 78 16 120/75 97 01/20/17 00:50 36.8 71 17 123/76 94 01/20/17 00:35 36.9 75 17 119/75 95 01/20/17 00:20 37.0 71 18 130/71 95 01/20/17 00:15 37.1 73 18 138/84 97 01/19/17 23:37 37.1 81 18 153/92 99 Room Air 01/19/17 23:30 67 18 138/84 97 01/19/17 22:30 66 01/19/17 22:26 66 18 128/90 99 Room Air 01/19/17 21:50 68 20 131/89 98 Room Air 01/19/17 20:36 55 12 99 01/19/17 20:31 01/19/17 20:06 59 13 89/62 100 01/19/17 20:01 01/19/17 19:36 69 16 108/70 99 Room Air 01/19/17 19:31 98/60 01/19/17 19:30 57 16 98/60 99 Room Air 01/19/17 19:06 56 14 98 01/19/17 19:01 80/47 01/19/17 18:52 72/51 01/19/17 18:51 62 16 72/51 93 Room Air 01/19/17 18:50 76/44 01/19/17 18:36 57 16 94 01/19/17 18:28 96 Room Air 01/19/17 18:27 61 01/19/17 18:22 71/43 01/19/17 18:10 36.8 58 16 78/54 96 Room Air Lab Results: Results Past 24 Hours Test 01/19/17 18:28 01/19/17 18:38 01/19/17 21:13 01/20/17 00:00 Range/Units White Blood Count 5.42 4.8-10.8 K/uL Red Blood Count 2.24 4.7-6.1 M/uL Hemoglobin 7.7 14.0-18.0 g/dL Hematocrit 22.9 42-52 % Mean Corpuscular Volume 102.2 80-100 fL Mean Corpuscular Hemoglobin 34.4 25-34 pg Mean Corpuscular Hemoglobin Concent 33.6 32-36 g/dl Platelet Count 285 130-400 K/uL Mean Platelet Volume 12.0 7.4-10.4 fL Neutrophils (%) (Auto) 3.2 % Lymphocytes (%) (Auto) 50.9 % Monocytes (%) (Auto) 36.9 % Eosinophils (%) (Auto) 7.4 % Basophils (%) (Auto) 0.7 % Neutrophils # (Auto) 0.17 1.4-6.5 K/uL Lymphocytes # (Auto) 2.76 1.2-3.4 K/uL Monocytes # (Auto) 2.00 0.11-0.59 K/uL Eosinophils # (Auto) 0.40 0-0.5 K/uL Basophils # (Auto) 0.04 0-0.2 K/uL RDW Standard Deviation 69.2 36.4-46.3 fL RDW Coefficient of Variation 19.2 11.5-14.5 % Immature Granulocyte % (Auto) 0.9 % Immature Granulocyte # (Auto) 0.05 0.00-0.02 K/uL Blood Smear Review Anisocytosis PRESENT Prothrombin Time 12.3 9.0-12.0 SECONDS Prothromb Time International Ratio 1.1 0.9-1.1 Activated Partial Thromboplast Time 28.5 21.0-31.0 SECONDS Partial Thromboplastin Ratio 1.1 Sodium Level 137 136-145 mmol/L Potassium Level 4.4 3.5-5.1 mmol/L Chloride Level 103 98-107 mmol/L Carbon Dioxide Level 26 21-32 mmol/L Anion Gap 8.0 3-11 mmol/L Blood Urea Nitrogen 25 7-18 mg/dl Creatinine 2.00 0.60-1.40 mg/dl Est Creatinine Clear Calc Drug Dose 33.1 ml/min Estimated GFR () 37.0 Estimated GFR (Non- 31.9 BUN/Creatinine Ratio 12.6 10-20 Random Glucose 199 70-99 mg/dl Calcium Level 8.7 8.5-10.1 mg/dl Magnesium Level 2.0 1.8-2.4 mg/dl Total Bilirubin 0.3 0.2-1 mg/dl Aspartate Amino Transf (AST/SGOT) 61 15-37 U/L Alanine Aminotransferase (ALT/SGPT) 55 12-78 U/L Alkaline Phosphatase 83 45-117 U/L Lactate Dehydrogenase 246 87-241 U/L Total Creatine Kinase 35 39-308 U/L Creatine Kinase MB 1.3 0.5-3.6 ng/ml Creatine Kinase MB Ratio 3.7 0-3.0 Total Protein 8.4 6.4-8.2 gm/dl Albumin 2.8 3.4-5.0 gm/dl Globulin 5.6 2.5-4.0 gm/dl Albumin/Globulin Ratio 0.5 0.9-2 Thyroid Stimulating Hormone (TSH) 6.540 0.300-4.500 uIu/ml Free Thyroxine 1.32 0.80-1.60 ng/dl Bedside Troponin I < 0.030 0-0.045 ng/ml Lactic Acid Level 2.3 0.4-2.0 mmol/L Transferrin % Saturation 20-50 % Test 01/20/17 00:27 01/20/17 00:37 01/20/17 04:05 01/20/17 06:59 Range/Units Bedside Glucose 181 128 70-99 mg/dl Lactic Acid Level 2.0 0.4-2.0 mmol/L Iron Level 189 35-175 mcg/dl Total Iron Binding Capacity 225 250-450 mcg/dl Transferrin 159 200-360 mg/dl Transferrin % Saturation 85 20-50 % Ferritin 755.1 8.0-388.0 ng/ml Vitamin B12 Level 770 211-911 pg/mL Folate > 24.00 >5.38 ng/mL White Blood Count 4.31 4.8-10.8 K/uL Red Blood Count 2.60 4.7-6.1 M/uL Hemoglobin 8.6 14.0-18.0 g/dL Hematocrit 25.3 42-52 % Mean Corpuscular Volume 97.3 80-100 fL Mean Corpuscular Hemoglobin 33.1 25-34 pg Mean Corpuscular Hemoglobin Concent 34.0 32-36 g/dl Platelet Count 231 130-400 K/uL Mean Platelet Volume 10.9 7.4-10.4 fL RDW Standard Deviation 64.7 36.4-46.3 fL RDW Coefficient of Variation 18.9 11.5-14.5 % Neutrophils % (Manual) 10.4 % Lymphocytes % (Manual) 65.2 % Monocytes % (Manual) 15.7 % Eosinophils % (Manual) 6.1 % Blast Cells % 1.7 % Neutrophils # (Manual) 0.45 1.4-6.5 K/uL Total Absolute Neutrophils 0.45 1.4-6.5 K/uL Lymphocytes # (Manual) 2.81 1.2-3.4 K/uL Total Absolute Lymphocytes 2.81 1.2-3.4 K/uL Monocytes # (Manual) 0.68 0.11-0.59 K/uL Eosinophils # (Manual) 0.26 0-0.5 K/uL Blast Cells # 0.07 0-0 K/uL Plasma Cells % 0.9 % Polychromasia 1+ Anisocytosis PRESENT Sodium Level 140 136-145 mmol/L Potassium Level 4.0 3.5-5.1 mmol/L Chloride Level 109 98-107 mmol/L Carbon Dioxide Level 25 21-32 mmol/L Anion Gap 6.0 3-11 mmol/L Blood Urea Nitrogen 23 7-18 mg/dl Creatinine 1.60 0.60-1.40 mg/dl Est Creatinine Clear Calc Drug Dose 40.9 ml/min Estimated GFR () 48.5 Estimated GFR (Non- 41.8 BUN/Creatinine Ratio 14.1 10-20 Random Glucose 131 70-99 mg/dl Calcium Level 8.3 8.5-10.1 mg/dl Test 01/20/17 10:57 01/20/17 12:26 01/20/17 15:34 Range/Units Bedside Glucose 165 70-99 mg/dl Hemoglobin 9.3 14.0-18.0 g/dL Hematocrit 28.1 42-52 %
[2017-01-20] MEDS ORDERED: CYCLOBENZAPRINE HCL 5 MG TAB PO STA (16:19)
[2017-01-21 04:25] VITALS: BP 149/88; PULSE 81; TEMP 36.5; O2SAT 93
[2017-01-21] MEDS: LEVOTHYROXINE 50 MCG TAB PO SCH (05:43)
[2017-01-21] MEDS: MIDODRINE 2.5 MG TAB PO SCH (07:00)
[2017-01-21 07:23] VITALS: BP 163/93; PULSE 75; TEMP 36.8; O2SAT 95
[2017-01-21 07:27] LABS: BUN/CREATININE RATIO 9.9 (10-20); CALCIUM 8.6 mg/dl (8.5-10.1); CREATININE 1.5 mg/dl (0.60-1.40); POTASSIUM 4.1 mmol/L (3.5-5.1)
[2017-01-21 07:54] LABS: HEMATOCRIT 26.9 % (42-52); MEAN CELL VOLUME 97.8 fL (80-100); MEAN CORPUSCULAR HEMOGLOBIN 33.1 pg (25-34); MEAN CORPUSCULAR HGB CONC 33.8 g/dl (32-36); MEAN PLATELET VOLUME 11.3 fL (7.4-10.4); PLATELET COUNT 245 K/uL (130-400); RED BLOOD COUNT 2.75 M/uL (4.7-6.1); WHITE BLOOD COUNT 3.93 K/uL (4.8-10.8)
[2017-01-21 07:58] LABS: GIANT PLATELETS 1+
[2017-01-21 08:01] LABS: BASO ABS # 0.07 K/uL (0-0.2); BASOPHIL % 1.8 % (0-2); COMPLETE YES; EOSINOPHIL % 12.8 %; LYMPH ABS # 1.98 K/uL (1.2-3.4); LYMPHOCYTE % 50.5 %; NEUTROPHILS % 4.6 %
[2017-01-21] MEDS: RANITIDINE HCL 150 MG TAB PO SCH (09:18)
[2017-01-21] MEDS: GABAPENTIN 100 MG CAP PO SCH ×3 (09:18→19:48)
[2017-01-21] MEDS: ASPIRIN 81 MG ECTAB PO SCH (09:18)
[2017-01-21] MEDS: LANSOPRAZOLE SOLUTAB 15 MG PO SCH (09:18)
[2017-01-21] MEDS: INSULIN ASPART 100 UNITS/ML 3 ML PEN SC SCH ×4 (09:22→19:53)
[2017-01-21] MEDS: INSULIN GLARGINE SOLOSTAR 100 UNITS/ML 3 ML PEN SQ SCH ×2 (09:22→19:47)
--- NOTE | 2017-01-21 09:55 | Progress Note ---
Internal Med Progress Note Date of Service: Jan 21, 2017. Provider Documentation: SUBJECTIVE: Patient is doing well. Denies any complaints. No dizziness, headaches, nausea, vomiting, fever, chills , cough, chest pain. Does have chronic low back pain, which is near his baseline. OBJECTIVE: Vital Signs-as noted below Exam: General Appearance: no apparent distress, + pertinent finding (no apparent distress, chronic motor dysfunction, Rt UE cannot move; lower extremities are weak, foot drop b/l, wrist dysfunction on L UE) Respiratory/Chest: chest non-tender, lungs clear, normal breath sounds, no respiratory distress, no accessory muscle use Cardiovascular: regular rate, rhythm, no edema, no murmur Extremities: no pedal edema, + pertinent finding (b/l chronic foot deformity) Lab data as noted below. ASSESSMENT & PLAN: This is a 76 year old male with a PMH of Cerebral Palsy, history of epidural abscess and discitis, neurogenic bladder, orthostatic hypotension, DM2, hypothyroidism came in for unresponsiveness/apneic x few seconds. UNRESPONSIVE EPISODE SECONDARY TO HYPOTENSION Per medical records, patient was found unresponsive, apneic for few seconds. Unable to get any history from patient as he could not recall anything. Likely syncope secondary to hypotension - Volume depletion exacerbated by recent diuretic rx (started some time ago for increasing leg swelling). Known history of orthostasis (recurrent) on midodrine. Presented with BP in 70s which responded to IVF. No signs of sepsis/infection. Has had issues with hypotension multiple times in past. -Hold midodrine due to high BP and monitor BP while off it -Work up- CT head-No acute abnormalities, Right frontal/Ethmoidal mucosal wall thickening, EEG done- Mild encephalopathy of non specific etiology ABNORMAL PERIPHERAL SMEAR -Peripheral smear was collected as part of work up for anemia, Hb 7.7 on presentation. Results- WBC- normal limits, Lymphocytes predominate in differential, morphologically unremarkable, Only rare mature granulocytes are noted. Population of immature monocytes noted. Rare blasts are identified. Red blood cells-ansisocytosis. No increase in schistocytes or spherocytes noted. No nucleated red blood cells. Platelets adequate in number with large platelets. No clumping noted. No hemolysis noted. Given the white cell differential and features, flow cytometry suggested to exclude myeloproliferative neoplasm. -Clinically no c/o weight loss, anorexia, fatigue. No signs of infection. -Flow cytometry was ordered on 01/20/17 -Discussed with Hem/Onc Dr Hicks about the results and concern for leukemia as abs neutrophils 0.18 , blasts 0.15 today. Will get the results of flow cytometry and accordingly decide about timing of BM biopsy outpatient vs inpatient. CHRONIC ANEMIA -HB 7.7 on presentation -Received a unit of PRBCs on 01/20/17 -No signs of overt GI bleeding, Ferritin high, TIBC, Low, Vit b12/folic acid- normal, Peripheral smear- as above HX OF TIA HX OF QUADRIPLEGIA SECONDARY TO BACK SURGERY -Stable CKD III -Baseline: 1.8-2.0. Does have hx of neurogenic bladder. Uses condom catheter at [facility]. -Monitor DM2: -ISS, Accuchecks HYPOTHYROIDISM: TSH slightly high- 6.5 -Continue with synthroid DVT PROPHYLAXIS SCDS re: anemia FULL CODE DISPOSITION: PT/OT ordered Eager to be discharged. Ok to discharge to [facility] once medically stable Transfer to med-surg today Vital Signs: Date Time Temp Pulse Resp B/P (MAP) Pulse Ox O2 Delivery O2 Flow Rate FiO2 01/21/17 07:23 36.8 75 20 163/93 (116) 95 Room Air 01/21/17 04:25 36.5 81 22 149/88 (108) 93 Room Air 01/21/17 04:00 Room Air 01/21/17 00:00 Room Air 01/20/17 23:52 36.9 73 22 157/96 (116) 96 Room Air 01/20/17 20:06 37.6 78 20 153/84 (107) 93 Room Air 01/20/17 20:00 Room Air 01/20/17 16:00 Room Air 01/20/17 15:37 37.1 83 20 151/92 (111) 95 Room Air 01/20/17 12:00 Room Air 01/20/17 11:59 37.0 73 21 143/81 (101) 96 Room Air 01/20/17 10:38 72 95 Lab Results: Results Past 24 Hours Test 01/20/17 10:57 01/20/17 12:26 01/20/17 15:48 01/20/17 18:26 Range/Units Bedside Glucose 165 132 70-99 mg/dl Hemoglobin 9.3 14.0-18.0 g/dL Hematocrit 28.1 42-52 % Test 01/20/17 20:24 01/21/17 06:23 01/21/17 06:32 Range/Units Bedside Glucose 157 147 70-99 mg/dl White Blood Count 3.93 4.8-10.8 K/uL Red Blood Count 2.75 4.7-6.1 M/uL Hemoglobin 9.1 14.0-18.0 g/dL Hematocrit 26.9 42-52 % Mean Corpuscular Volume 97.8 80-100 fL Mean Corpuscular Hemoglobin 33.1 25-34 pg Mean Corpuscular Hemoglobin Concent 33.8 32-36 g/dl Platelet Count 245 130-400 K/uL Mean Platelet Volume 11.3 7.4-10.4 fL RDW Standard Deviation 65.1 36.4-46.3 fL RDW Coefficient of Variation 18.8 11.5-14.5 % Neutrophils % (Manual) 4.6 % Lymphocytes % (Manual) 50.5 % Monocytes % (Manual) 26.6 % Eosinophils % (Manual) 12.8 % Basophils % (Manual) 1.8 0-2 % Blast Cells % 3.7 % Neutrophils # (Manual) 0.18 1.4-6.5 K/uL Total Absolute Neutrophils 0.18 1.4-6.5 K/uL Lymphocytes # (Manual) 1.98 1.2-3.4 K/uL Total Absolute Lymphocytes 1.98 1.2-3.4 K/uL Monocytes # (Manual) 1.05 0.11-0.59 K/uL Eosinophils # (Manual) 0.50 0-0.5 K/uL Basophils # (Manual) 0.07 0-0.2 K/uL Blast Cells # 0.15 0-0 K/uL Giant Platelets 1+ Sodium Level 140 136-145 mmol/L Potassium Level 4.1 3.5-5.1 mmol/L Chloride Level 108 98-107 mmol/L Carbon Dioxide Level 25 21-32 mmol/L Anion Gap 7.0 3-11 mmol/L Blood Urea Nitrogen 15 7-18 mg/dl Creatinine 1.50 0.60-1.40 mg/dl Est Creatinine Clear Calc Drug Dose 44.0 ml/min Estimated GFR () 52.4 Estimated GFR (Non- 45.2 BUN/Creatinine Ratio 9.9 10-20 Random Glucose 150 70-99 mg/dl Calcium Level 8.6 8.5-10.1 mg/dl
[2017-01-21] MEDS ORDERED: OXYCODONE/ACETAMINOPHEN 5-325 TAB PO PRN (10:00)
[2017-01-21 10:58] LABS: MEAN CELL VOLUME 96.9 fL (80-100); MEAN CORPUSCULAR HEMOGLOBIN 33.6 pg (25-34); MEAN CORPUSCULAR HGB CONC 34.6 g/dl (32-36); MEAN PLATELET VOLUME 10.3 fL (7.4-10.4); PLATELET COUNT 233 K/uL (130-400); RED BLOOD COUNT 2.89 M/uL (4.7-6.1); WHITE BLOOD COUNT 3.42 K/uL (4.8-10.8)
[2017-01-21 11:41] LABS: LARGE PLATELETS 1+
[2017-01-21 11:42] LABS: BASO ABS # 0.15 K/uL (0-0.2); BASOPHIL % 4.3 % (0-2); COMPLETE YES; EOSINOPHIL % 10.3 %; LYMPHOCYTE % 46.7 %
[2017-01-21 11:56] VITALS: BP 162/85; PULSE 82; O2SAT 96
[2017-01-21 15:29] VITALS: BP 152/86; PULSE 96; TEMP 36.5; O2SAT 94
[2017-01-21] MEDS: ACETAMINOPHEN 325 MG TAB PO PRN (19:51)
[2017-01-21 23:04] VITALS: BP 160/94; PULSE 77; TEMP 36.8; O2SAT 96
[2017-01-22] MEDS: LEVOTHYROXINE 50 MCG TAB PO SCH (05:16)
[2017-01-22 06:27] LABS: HEMATOCRIT 27.6 % (42-52); MEAN CELL VOLUME 98.6 fL (80-100); MEAN CORPUSCULAR HEMOGLOBIN 33.6 pg (25-34); MEAN CORPUSCULAR HGB CONC 34.1 g/dl (32-36); MEAN PLATELET VOLUME 11.2 fL (7.4-10.4); PLATELET COUNT 235 K/uL (130-400); WHITE BLOOD COUNT 4.05 K/uL (4.8-10.8)
[2017-01-22 06:37] LABS: BUN/CREATININE RATIO 9.5 (10-20); CALCIUM 8.8 mg/dl (8.5-10.1); CREATININE 1.4 mg/dl (0.60-1.40); POTASSIUM 3.9 mmol/L (3.5-5.1)
[2017-01-22 07:48] LABS: BASO ABS # 0.11 K/uL (0-0.2); BASOPHIL % 2.6 % (0-2); COMPLETE YES; EOSINOPHIL % 13.2 %; LYMPH ABS # 2.31 K/uL (1.2-3.4); NEUTROPHILS % 2.6 %
[2017-01-22] MEDS: GABAPENTIN 100 MG CAP PO SCH ×3 (08:14→20:22)
[2017-01-22] MEDS: LANSOPRAZOLE SOLUTAB 15 MG PO SCH (08:14)
[2017-01-22] MEDS: RANITIDINE HCL 150 MG TAB PO SCH (08:14)
[2017-01-22] MEDS: ASPIRIN 81 MG ECTAB PO SCH (08:15)
[2017-01-22 08:21] VITALS: BP 173/112
[2017-01-22 09:18] VITALS: PULSE 71; TEMP 36.7; O2SAT 96
[2017-01-22] MEDS: INSULIN ASPART 100 UNITS/ML 3 ML PEN SC SCH ×4 (09:25→20:22)
[2017-01-22] MEDS: INSULIN GLARGINE SOLOSTAR 100 UNITS/ML 3 ML PEN SQ SCH ×2 (09:26→20:24)
[2017-01-22 11:34] VITALS: BP 158/107; PULSE 82; O2SAT 96
--- NOTE | 2017-01-22 12:00 | Progress Note ---
Internal Med Progress Note Date of Service: Jan 22, 2017. Provider Documentation: SUBJECTIVE: Patient is doing well and eager to be discharged. Denies any complaints. No dizziness, headaches, nausea, vomiting, fever, chills , cough, chest pain. Does have chronic low back pain, which is near his baseline. OBJECTIVE: Vital Signs-as noted below Exam: General Appearance: no apparent distress, + pertinent finding (no apparent distress, chronic motor dysfunction, Rt UE cannot move; lower extremities are weak, foot drop b/l, wrist dysfunction on L UE) Respiratory/Chest: chest non-tender, lungs clear, normal breath sounds, no respiratory distress, no accessory muscle use Cardiovascular: regular rate, rhythm, no edema, no murmur Extremities: no pedal edema, + pertinent finding (b/l chronic foot deformity) Lab data as noted below. ASSESSMENT & PLAN: This is a 76 year old male with a PMH of Cerebral Palsy, history of epidural abscess and discitis, neurogenic bladder, orthostatic hypotension, DM2, hypothyroidism came in for unresponsiveness/apneic x few seconds. UNRESPONSIVE EPISODE SECONDARY TO HYPOTENSION : Per medical records, patient was found unresponsive, apneic for few seconds. Unable to get any history from patient as he could not recall anything. Likely syncope secondary to hypotension - Volume depletion exacerbated by recent diuretic rx (started some time ago for increasing leg swelling). Known history of orthostasis (recurrent) on midodrine. Presented with BP in 70s which responded to IVF. No signs of sepsis/infection. Has had issues with hypotension multiple times in past. -Discontinue midodrine due to high BP and monitor BP while off it- running high -Work up- CT head-No acute abnormalities, Right frontal/Ethmoidal mucosal wall thickening, EEG done- Mild encephalopathy of non specific etiology ABNORMAL PERIPHERAL SMEAR -Peripheral smear was collected as part of work up for anemia, Hb 7.7 on presentation. Results- WBC- normal limits, Lymphocytes predominate in differential, morphologically unremarkable, Only rare mature granulocytes are noted. Population of immature monocytes noted. Rare blasts are identified. Red blood cells-ansisocytosis. No increase in schistocytes or spherocytes noted. No nucleated red blood cells. Platelets adequate in number with large platelets. No clumping noted. No hemolysis noted. Given the white cell differential and features, flow cytometry suggested to exclude myeloproliferative neoplasm. -Clinically no c/o weight loss, anorexia, fatigue. No signs of infection. -Flow cytometry was ordered on 01/20/17 -Discussed with Hem/Onc Dr Hicks about the results and concern for leukemia as abs neutrophils 0.18 , blasts 0.15 today. Will get the results of flow cytometry and accordingly decide about timing of BM biopsy outpatient vs inpatient. CHRONIC ANEMIA -HB 7.7 on presentation -Received a unit of PRBCs on 01/20/17 -No signs of overt GI bleeding, Ferritin high, TIBC, Low, Vit b12/folic acid- normal, Peripheral smear- as above HX OF TIA HX OF QUADRIPLEGIA SECONDARY TO BACK SURGERY -Stable CKD III -Baseline: 1.8-2.0. Does have hx of neurogenic bladder. Uses condom catheter at [facility]. -Monitor DM2: -ISS, Accuchecks HYPOTHYROIDISM: TSH slightly high- 6.5 -Continue with synthroid DVT PROPHYLAXIS SCDS re: anemia FULL CODE DISPOSITION: PT/OT ordered Eager to be discharged. Ok to discharge to [facility] once medically stable-pending flow cytometry Vital Signs: Date Time Temp Pulse Resp B/P (MAP) Pulse Ox O2 Delivery O2 Flow Rate FiO2 01/22/17 11:34 82 18 158/107 (124) 96 Room Air 01/22/17 09:18 36.7 71 18 96 Room Air 01/22/17 08:21 173/112 (132) 01/22/17 08:00 Room Air 01/22/17 00:08 Room Air 01/21/17 23:04 36.8 77 18 160/94 (116) 96 Room Air 01/21/17 16:00 Room Air 01/21/17 15:29 36.5 96 18 152/86 (108) 94 Room Air 01/21/17 11:56 82 162/85 (110) 96 Room Air Lab Results: Results Past 24 Hours Test 01/21/17 16:32 01/21/17 19:46 01/22/17 05:43 01/22/17 08:17 Range/Units Bedside Glucose 176 175 145 70-99 mg/dl White Blood Count 4.05 4.8-10.8 K/uL Red Blood Count 2.80 4.7-6.1 M/uL Hemoglobin 9.4 14.0-18.0 g/dL Hematocrit 27.6 42-52 % Mean Corpuscular Volume 98.6 80-100 fL Mean Corpuscular Hemoglobin 33.6 25-34 pg Mean Corpuscular Hemoglobin Concent 34.1 32-36 g/dl Platelet Count 235 130-400 K/uL Mean Platelet Volume 11.2 7.4-10.4 fL RDW Standard Deviation 63.5 36.4-46.3 fL RDW Coefficient of Variation 18.3 11.5-14.5 % Neutrophils % (Manual) 2.6 % Lymphocytes % (Manual) 57.0 % Monocytes % (Manual) 23.7 % Eosinophils % (Manual) 13.2 % Basophils % (Manual) 2.6 0-2 % Blast Cells % 0.9 % Neutrophils # (Manual) 0.11 1.4-6.5 K/uL Total Absolute Neutrophils 0.11 1.4-6.5 K/uL Lymphocytes # (Manual) 2.31 1.2-3.4 K/uL Total Absolute Lymphocytes 2.31 1.2-3.4 K/uL Monocytes # (Manual) 0.96 0.11-0.59 K/uL Eosinophils # (Manual) 0.53 0-0.5 K/uL Basophils # (Manual) 0.11 0-0.2 K/uL Blast Cells # 0.04 0-0 K/uL Red Blood Cell Morphology Unremarkable Absolute Reticulocyte Count 0.04 0.02-0.10 10^6/uL Percent Reticulocyte Count 1.4 0.5-2.0 % Sodium Level 140 136-145 mmol/L Potassium Level 3.9 3.5-5.1 mmol/L Chloride Level 107 98-107 mmol/L Carbon Dioxide Level 26 21-32 mmol/L Anion Gap 7.0 3-11 mmol/L Blood Urea Nitrogen 13 7-18 mg/dl Creatinine 1.40 0.60-1.40 mg/dl Est Creatinine Clear Calc Drug Dose 47.1 ml/min Estimated GFR () 57.0 Estimated GFR (Non- 49.1 BUN/Creatinine Ratio 9.5 10-20 Random Glucose 152 70-99 mg/dl Calcium Level 8.8 8.5-10.1 mg/dl Lactate Dehydrogenase 222 87-241 U/L
[2017-01-22 15:43] VITALS: BP 182/115
[2017-01-22] MEDS ORDERED: NURSING VERBAL MED ORDER ONE ×2 (16:00→18:45)
[2017-01-22 16:10] VITALS: BP 182/115; PULSE 86; TEMP 36.5; O2SAT 95
[2017-01-22] MEDS ORDERED: AMLODIPINE BESYLATE 5 MG TAB PO ONE (16:30)
[2017-01-22 18:19] VITALS: BP 155/88
[2017-01-22] MEDS ORDERED: HydrALAZINE HCL 20 MG/ML VIAL IV. ONE (19:00)
[2017-01-22] MEDS: ACETAMINOPHEN 325 MG TAB PO PRN (23:47)
[2017-01-23 00:09] VITALS: BP 127/86; PULSE 95; TEMP 37.3; O2SAT 94
[2017-01-23] MEDS: LEVOTHYROXINE 50 MCG TAB PO SCH (06:01)
[2017-01-23 07:26] LABS: HEMATOCRIT 28.1 % (42-52); MEAN CELL VOLUME 98.9 fL (80-100); MEAN CORPUSCULAR HEMOGLOBIN 33.8 pg (25-34); MEAN CORPUSCULAR HGB CONC 34.2 g/dl (32-36); MEAN PLATELET VOLUME 11.3 fL (7.4-10.4); PLATELET COUNT 256 K/uL (130-400); RED BLOOD COUNT 2.84 M/uL (4.7-6.1); WHITE BLOOD COUNT 6.13 K/uL (4.8-10.8)
[2017-01-23 07:35] LABS: BUN/CREATININE RATIO 10.4 (10-20); CALCIUM 8.8 mg/dl (8.5-10.1); CREATININE 1.4 mg/dl (0.60-1.40); POTASSIUM 3.7 mmol/L (3.5-5.1)
[2017-01-23 07:38] VITALS: BP 132/84; PULSE 76; TEMP 36.5; O2SAT 95
[2017-01-23] MEDS: ASPIRIN 81 MG ECTAB PO SCH (07:57)
[2017-01-23] MEDS: LANSOPRAZOLE SOLUTAB 15 MG PO SCH (07:57)
[2017-01-23] MEDS: RANITIDINE HCL 150 MG TAB PO SCH (07:57)
[2017-01-23] MEDS: GABAPENTIN 100 MG CAP PO SCH ×2 (07:58→12:44)
[2017-01-23] MEDS ORDERED: AMLODIPINE BESYLATE 5 MG TAB PO SCH (08:00)
[2017-01-23 08:25] LABS: BASO ABS # 0.16 K/uL (0-0.2); BASOPHIL % 2.6 % (0-2); COMPLETE YES; EOSINOPHIL % 5.2 %; LYMPH ABS # 3.04 K/uL (1.2-3.4); LYMPHOCYTE % 49.6 %; NEUTROPHILS % 10.4 %
[2017-01-23 08:30] VITALS: O2SAT 95
[2017-01-23] MEDS: INSULIN ASPART 100 UNITS/ML 3 ML PEN SC SCH ×3 (09:11→17:39)
[2017-01-23] MEDS: INSULIN GLARGINE SOLOSTAR 100 UNITS/ML 3 ML PEN SQ SCH (09:12)
--- NOTE | 2017-01-23 12:27 | Progress Note ---
Internal Med Progress Note Date of Service: Jan 23, 2017. Provider Documentation: SUBJECTIVE: Patient is doing well and eager to be discharged. Doesnt want to stay here any more. Denies any complaints. No dizziness, headaches, nausea, vomiting, fever, chills , cough, chest pain. Does have chronic low back pain, which is near his baseline. OBJECTIVE: Vital Signs-as noted below Exam: General Appearance: AAO X 2, no apparent distress, + pertinent finding (no apparent distress, chronic motor dysfunction, Rt UE cannot move; lower extremities are weak, foot drop b/l, wrist dysfunction on L UE) Respiratory/Chest: chest non-tender, lungs clear, normal breath sounds, no respiratory distress, no accessory muscle use Cardiovascular: regular rate, rhythm, no edema, no murmur Extremities: no pedal edema, + pertinent finding (b/l chronic foot deformity) Lab data as noted below. ASSESSMENT & PLAN: This is a 76 year old male with a PMH of Cerebral Palsy, history of epidural abscess and discitis, neurogenic bladder, orthostatic hypotension, DM2, hypothyroidism came in for unresponsiveness/apneic x few seconds. UNRESPONSIVE EPISODE SECONDARY TO HYPOTENSION : Per medical records, patient was found unresponsive, apneic for few seconds. Unable to get any history from patient as he could not recall anything. Likely syncope secondary to hypotension - Volume depletion exacerbated by recent diuretic rx (started some time ago for increasing leg swelling). Known history of orthostasis (recurrent) on midodrine. Presented with BP in 70s which responded to IVF. No signs of sepsis/infection. Has had issues with hypotension multiple times in past. -Discontinued midodrine due to high BP and eventually had to start on an antihypertensive this admission due to persistent HTN -Work up- CT head-No acute abnormalities, Right frontal/Ethmoidal mucosal wall thickening, EEG done- Mild encephalopathy of non specific etiology ABNORMAL PERIPHERAL SMEAR -Peripheral smear was collected as part of work up for anemia, Hb 7.7 on presentation. Results- WBC- normal limits, Lymphocytes predominate in differential, morphologically unremarkable, Only rare mature granulocytes are noted. Population of immature monocytes noted. Rare blasts are identified. Red blood cells-ansisocytosis. No increase in schistocytes or spherocytes noted. No nucleated red blood cells. Platelets adequate in number with large platelets. No clumping noted. No hemolysis noted. Given the white cell differential and features, flow cytometry suggested to exclude myeloproliferative neoplasm. -Clinically no c/o weight loss, anorexia, fatigue. No signs of infection. -Flow cytometry was ordered on 01/20/17- pending results -Discussed with Hem/Onc Dr Hicks about the results over phone and concern for leukemia as abs neutrophils low, blast cells +. Will get the results of flow cytometry and accordingly decide about timing of BM biopsy. -Patient is adamant about being discharged today. So I discussed plan with him/ sister over phone- I will follow up his flow cytometry results over next 1-2 days and accordingly try to make arrangements for biopsy. Patient may not be too keen for treatment if this turns out to be cancer, per my discussion with him CHRONIC ANEMIA -HB 7.7 on presentation -Received a unit of PRBCs on 01/20/17 -No signs of overt GI bleeding, Ferritin high, TIBC, Low, Vit b12/folic acid- normal, Peripheral smear- as above HX OF TIA HX OF QUADRIPLEGIA SECONDARY TO BACK SURGERY -Stable CKD III -Baseline: 1.8-2.0. Does have hx of neurogenic bladder. Uses condom catheter at [facility]. -Monitor DM2: -ISS, Accuchecks HYPOTHYROIDISM: TSH slightly high- 6.5 -Continue with synthroid DVT PROPHYLAXIS SCDS re: anemia FULL CODE DISPOSITION: PT/OT ordered Eager to be discharged and adamant about leaving today Discussed with sister Radha about the discharge plans, follow up plans for abnormal peripheral smear results as above. Agrees with the plan. Okay to discharge back to [facility] today Vital Signs: Date Time Temp Pulse Resp B/P (MAP) Pulse Ox O2 Delivery O2 Flow Rate FiO2 01/23/17 08:30 95 Room Air 01/23/17 07:38 36.5 76 19 132/84 (100) 95 Room Air 01/23/17 00:09 37.3 95 20 127/86 (100) 94 Room Air 01/22/17 23:15 Room Air 01/22/17 18:19 155/88 (110) 01/22/17 16:10 36.5 86 18 182/115 (137) 95 Room Air 01/22/17 16:00 Room Air 01/22/17 15:43 182/115 (137) Lab Results: Results Past 24 Hours Test 01/22/17 16:23 01/22/17 20:06 01/23/17 06:10 01/23/17 07:47 Range/Units Bedside Glucose 144 162 138 70-99 mg/dl White Blood Count 6.13 4.8-10.8 K/uL Red Blood Count 2.84 4.7-6.1 M/uL Hemoglobin 9.6 14.0-18.0 g/dL Hematocrit 28.1 42-52 % Mean Corpuscular Volume 98.9 80-100 fL Mean Corpuscular Hemoglobin 33.8 25-34 pg Mean Corpuscular Hemoglobin Concent 34.2 32-36 g/dl Platelet Count 256 130-400 K/uL Mean Platelet Volume 11.3 7.4-10.4 fL RDW Standard Deviation 65.0 36.4-46.3 fL RDW Coefficient of Variation 18.5 11.5-14.5 % Neutrophils % (Manual) 10.4 % Lymphocytes % (Manual) 49.6 % Monocytes % (Manual) 29.6 % Eosinophils % (Manual) 5.2 % Basophils % (Manual) 2.6 0-2 % Blast Cells % 2.6 % Neutrophils # (Manual) 0.64 1.4-6.5 K/uL Total Absolute Neutrophils 0.64 1.4-6.5 K/uL Lymphocytes # (Manual) 3.04 1.2-3.4 K/uL Total Absolute Lymphocytes 3.04 1.2-3.4 K/uL Monocytes # (Manual) 1.81 0.11-0.59 K/uL Eosinophils # (Manual) 0.32 0-0.5 K/uL Basophils # (Manual) 0.16 0-0.2 K/uL Hypogranular Neutrophils 1+ Blast Cells # 0.16 0-0 K/uL Sodium Level 139 136-145 mmol/L Potassium Level 3.7 3.5-5.1 mmol/L Chloride Level 106 98-107 mmol/L Carbon Dioxide Level 25 21-32 mmol/L Anion Gap 8.0 3-11 mmol/L Blood Urea Nitrogen 15 7-18 mg/dl Creatinine 1.40 0.60-1.40 mg/dl Est Creatinine Clear Calc Drug Dose 46.6 ml/min Estimated GFR () 57.0 Estimated GFR (Non- 49.1 BUN/Creatinine Ratio 10.4 10-20 Random Glucose 137 70-99 mg/dl Calcium Level 8.8 8.5-10.1 mg/dl Test 01/23/17 11:28 Range/Units Bedside Glucose 140 70-99 mg/dl
[2017-01-23] MEDS ORDERED: NRV5 PO (12:28)
[2017-01-23] MEDS ORDERED: OXYC-609 PO (12:28)
--- NOTE | 2017-01-23 12:32 | Discharge Instructions ---
Discharge Instructions Date of Service Jan 23, 2017. Admission Reason for Admission: Anemia, Syncope Discharge Discharge Diagnosis / Problem: 1. Syncope 2. Volume depletion 3. Abnormal peripheral smear Discharge Goals Goal(s): Decrease discomfort, Improve function, Diagnostic testing Activity Recommendations Activity Limitations: resume your previous activity (as tolerated prior to admission- with assistance- PT/OT recommended) . Instructions / Follow-Up Instructions / Follow-Up MEDICATION CHANGES: 1. New medication; Amlodipine 10 mg daily (due to persistently elevated BP in spite of stopping Midodrine) 2. Discontinued Midodrine as BP consistently high 3. Discontinue lasix MONITOR -BP with above changes made. -Flow cytometry (01/18/17) pending results. Abnormal peripheral smear concerning for leukemia. I will follow up flow cytometry results and accordingly plan follow up. -Neutrophils counts low, so advise neutropenic precautions and avoid sick contacts FOLLOW UP 1. Follow up with PCP in 1 week Current Hospital Diet Patient's current hospital diet: Diabetes Type 2 Diet Discharge Diet Recommended Diet: AHA Diet (Heart Healthy), Diabetes Type 2 Diet Pending Studies Studies pending at discharge: no Laboratory Results Hemoglobin A1c Test 11/26/16 07:16 Range/Units Estimated Average Glucose 189 mg/dl Hemoglobin A1c 8.2 H 4.5-5.6 % Medical Emergencies . Who to Call and When: Medical Emergencies: If at any time you feel your situation is an emergency, please call 911 immediately. . Non-Emergent Contact Non-Emergency issues call your: Primary Care Provider . . "Provider Documentation" section prepared by Rama Hicks. . VTE Core Measure Inpt VTE Proph given/why not?: John Mack, [facility]AREN[facility]
--- NOTE | 2017-01-23 12:36 | Discharge Summary ---
Discharge Summary Date of Service Jan 23, 2017. Discharge Summary Admission Date: Jan 20, 2017 at 11:47 Discharge Date: Jan 23, 2017 [facility]charge Disposition[facility] jail facility ([facility] with PT/OT) Principal Diagnosis: 1. Unresponsive episode secondary to hypotension 2. Abnormal peripheral smear concerning for leukemia, new finding Secondary Diagnoses/Problems: 1. Chronic anemia 2. Hx of TIA 3. Ambulatory dysfunction secondary to Tetraplegia 4. CKD III 5. DM-II 6. Hypothyroidism 7. Hx of cerebral palsy Procedures: Tele monitoring CXR CT head Orthostats IV fluids Peripheral smear Flow cytometry - follow up PT/OT Consultations: None Pending Studies/Follow-Up: MEDICATION CHANGES: 1. New medication; Amlodipine 10 mg daily (due to persistently elevated BP in spite of stopping Midodrine) 2. Discontinued Midodrine as BP consistently high 3. Discontinue lasix MONITOR -BP with above changes made. -Flow cytometry (01/18/17) pending results. Abnormal peripheral smear concerning for leukemia. I will follow up flow cytometry results and accordingly plan follow up. -Neutrophils counts low, so advise neutropenic precautions and avoid sick contacts FOLLOW UP 1. Follow up with PCP in 1 week Medication Reconciliation New Medications: Amlodipine Besylate (Amlodipine Besylate) 5 Mg Tab 10 MG PO DAILY for 30 Days, #30 TAB Changed Medications: Oxycodone HCl (Oxycodone HCl) 5 Mg Tab 5 MG PO Q6H PRN for moderate-severe pain, #20 (Changed from: BID) Continued Medications: Acetaminophen Tab (Tylenol) 325 Mg Tab 650 MG PO Q4 PRN for Fever TEMP >100 , MILD-SEVERE Aspirin (Aspirin) 81 Mg Tab 81 MG PO DAILY Bisacodyl (Dulcolax) 10 Mg Sup 1 SUPP OK UD, SUP PRN FOR NO BM 2 DAYS Camphor & Menthol (Men-Phor) 1 Lot Lot 1 APPLN TOP QID PRN for APPLY TO BODY Gabapentin (Neurontin) 100 Mg Cap 200 MG PO AMPM Gabapentin (Neurontin) 100 Mg Cap 100 MG PO NOON Insulin Aspart (Novolog) 100 Units/Ml Inj 6 UNITS SQ TIDM HOLD IF EATS <25% Insulin Glargine (Lantus) 100 Unit/Ml Inj 10 UNITS SQ, VIAL Ipratropium-Albuterol (Duoneb) 3 Ml Nebu 1 TREATMENT INH Q4H PRN for Wheezing Ketoconazole (Topical) (Ketoconazole) 2 % Sha 1 APPLN TOP 2XWK Lansoprazole (Prevacid) 15 Mg Capcr 15 MG PO DAILY Levothyroxine Sodium (Levothyroxine Sodium) 50 Mcg Tab 1 TAB PO DAILY Menthol (Mouth-Throat) (Byron Cough Drops) 7 Mg Jossie 1 DROP PO Q2 PRN for COUGH/SORE THROAT Menthol (Topical Analgesic) (Biofreeze) 4 % Gel 1 APPLN TOP DAILY PRN for PRN FOR DISCOMFORT X 15 MIN. ADMINISTER PRIOR TO ROM EXERCISES Menthol-Methyl Salicylate (Juliette (Icy Hot Extra Strength) 1 Cre Cre 1 APPLN TOP PRN APPLY TO RIGHT UPPER ARM & ELBOW PRN Nystatin (Nystatin Cream) 90 Appln/30 Gm Cr 0 EXT BID, #15 GM APPLY TO AFFECTED AREA BID, BI-LAT GROIN Ondansetron Hcl (Zofran) 4 Mg Tab 4 MG PO QAM PRN for Nausea Polyethylene Glycol 3350 (Miralax) 1 Pow Pow 17 GM PO DAILY Ranitidine (Zantac) 150 Mg Tab 150 MG PO DAILY Tizanidine (Zanaflex) 4 Mg Cap 4 MG PO TID Triamcinolone Acet (Aristocort 0.1%) 90 Appln/30 Gm Cr 1 APPLN TOP BID APPLY FOR 14 DAYS, RASH RIGHT INTERIOR LEG Wound Dressings (Allevyn Ag Gentle Border) 1 Pad Pad 1 PATCH TOP Q5DAYS PRN for Zolpidem Tartrate (Ambien) 5 Mg Tab 5 MG PO HS PRN for Insomnia Discontinued Medications: Doxycycline Hyclate (Doxycycline Hyclate) 100 Mg Tab 1 TAB PO BID for 10 Days, #20 TAB Furosemide (Lasix) 20 Mg Tab 20 MG PO UD, TAB JOHAN FOR 4 DAYS, START 01/18/2017 Midodrine Hcl (Midodrine Hcl) 2.5 Mg Tab 2.5 MG PO TID Admission Information HPI (per Admitting provider): Recent confinement last October 2016 for possible aspiration pneumonia. Patient seen by [facility] provider about 2 days ago for leg swelling noted by staff and weight gain and also an itchy red rash in the right anterior leg. Issues improved with Lasix and topical cream application, respectively. As per records, patient noted to be unresponsive today. Noted to be apneic for about 10 seconds. No witnessed seizures. Patient denies chest pain, shortness of breath or belly pain or dysuria symptoms. Chronic back pain. Patient also noted to be [facility]ensive [facility] the [facility]. At the emergency room SBP initially 70s, currently 130s after IVF bolus. Patient can only remember that he was in bed before waking up in the ER. He feels cold. Hemoglobin noted to be 7 at the emergency room. Stool Hemoccult was negative. Physical Exam (per Admitting): General Appearance: + pertinent finding (obese, slightly anxious, chronic dysarthria) Head: + pertinent finding (chronic facial symmetry) Eyes: + pertinent finding (pale palpebral conjunctivae, dry buccal mucosa) Neck: + pertinent finding (short) Respiratory/Chest: + decreased breath sounds Cardiovascular: regular rate, rhythm Abdomen/GI: + distended Extremities/Musculoskelatal: non-tender Neurologic/Psych: + pertinent finding (coherent, chronic dysarthria, old facial asymmetry, MMTs 3 over 5) Skin: + pallor Hospital Course This is a 76 year old male with a PMH of Cerebral Palsy, history of epidural abscess and discitis, neurogenic bladder, orthostatic hypotension, DM2, hypothyroidism came in for unresponsiveness/apneic x few seconds. UNRESPONSIVE EPISODE SECONDARY TO HYPOTENSION : Per medical records, patient was found unresponsive, apneic for few seconds. Unable to get any history from patient as he could not recall anything. Likely syncope secondary to hypotension - Volume depletion exacerbated by recent diuretic rx (started some time ago for increasing leg swelling). Known history of orthostasis (recurrent) on midodrine. Presented with BP in 70s which responded to IVF. No signs of sepsis/infection. Has had issues with hypotension multiple times in past. -Discontinued midodrine due to high BP and eventually had to start on an antihypertensive this admission due to persistent HTN -Work up- CT head-No acute abnormalities, Right frontal/Ethmoidal mucosal wall thickening, EEG done- Mild encephalopathy of non specific etiology ABNORMAL PERIPHERAL SMEAR -Peripheral smear was collected as part of work up for anemia, Hb 7.7 on presentation. Results- WBC- normal limits, Lymphocytes predominate in differential, morphologically unremarkable, Only rare mature granulocytes are noted. Population of immature monocytes noted. Rare blasts are identified. Red blood cells-ansisocytosis. No increase in schistocytes or spherocytes noted. No nucleated red blood cells. Platelets adequate in number with large platelets. No clumping noted. No hemolysis noted. Given the white cell differential and features, flow cytometry suggested to exclude myeloproliferative neoplasm. -Clinically no c/o weight loss, anorexia, fatigue. No signs of infection. -On neutropenic precautions -Flow cytometry was ordered on 01/20/17- pending results -Discussed with Hem/Onc Dr Hicks about the results over phone and concern for leukemia as abs neutrophils low, blast cells +. Will get the results of flow cytometry and accordingly decide about timing of BM biopsy. -Patient is adamant about being discharged today. So I discussed plan with him/ sister over phone- I will follow up his flow cytometry results over next 1-2 days and accordingly try to make arrangements for biopsy. Patient may not be too keen for treatment if this turns out to be cancer, per my discussion with him CHRONIC ANEMIA -HB 7.7 on presentation -Received a unit of PRBCs on 01/20/17 -No signs of overt GI bleeding, Ferritin high, TIBC, Low, Vit b12/folic acid- normal, Peripheral smear- as above HX OF TIA HX OF QUADRIPLEGIA SECONDARY TO BACK SURGERY -Stable CKD III -Baseline: 1.8-2.0. Does have hx of neurogenic bladder. Uses condom catheter at [facility]. -Monitor DM2: -ISS, Accuchecks HYPOTHYROIDISM: TSH slightly high- 6.5 -Continue with synthroid DVT PROPHYLAXIS SCDS re: anemia FULL CODE DISPOSITION: PT/OT ordered Eager to be discharged and adamant about leaving today Discussed with sister Radha about the discharge plans, follow up plans for abnormal peripheral smear results as above. Agrees with the plan. Okay to discharge back to [facility] today Total time spent on discharge = 45 minutes This includes examination of the patient, discharge planning, medication reconciliation, and communication with other providers. Discharge Instructions Discharge Goals Goal(s): Decrease discomfort, Improve function, Diagnostic testing Activity Recommendations Activity Limitations: resume your previous activity (as tolerated prior to admission- with assistance- PT/OT recommended) . Instructions / Follow-Up Instructions / Follow-Up MEDICATION CHANGES: 1. New medication; Amlodipine 10 mg daily (due to persistently elevated BP in spite of stopping Midodrine) 2. Discontinued Midodrine as BP consistently high 3. Discontinue lasix MONITOR -BP with above changes made. -Flow cytometry (01/18/17) pending results. Abnormal peripheral smear concerning for leukemia. I will follow up flow cytometry results and accordingly plan follow up. FOLLOW UP 1. Follow up with PCP in 1 week Current Hospital Diet Patient's current hospital diet: Diabetes Type 2 Diet Discharge Diet Recommended Diet: AHA Diet (Heart Healthy), Diabetes Type 2 Diet Pending Studies Studies pending at discharge: no Laboratory Results Hemoglobin A1c Test 11/26/16 07:16 Range/Units Estimated Average Glucose 189 mg/dl Hemoglobin A1c 8.2 H 4.5-5.6 % Medical Emergencies . Who to Call and When: Medical Emergencies: If at any time you feel your situation is an emergency, please call 911 immediately. . Non-Emergent Contact Non-Emergency issues call your: Primary Care Provider . . "Provider Documentation" section prepared by Rama Hicks. . VTE Core Measure Inpt VTE Proph given/why not?: John Mack, SCD's
[2017-01-23 13:12] VITALS: BP 132/84; PULSE 76; TEMP 36.5; O2SAT 95
[2017-01-23 15:04] VITALS: BP 117/74; PULSE 92; TEMP 36.6; O2SAT 96
[2017-01-23 16:00] VITALS: O2SAT 96
--- NOTE | 2017-01-24 10:53 | Progress Note ---
Progress Note Date of Service Jan 24, 2017. Progress Note Patient's flow cytometry were reviewed- shows Myelodysplasia (MDS) with or without excess blasts in an appropriate clinical setting. Discussed the results with Dr Rob Hicks and he will make arrangements for outpatient follow up for further work up and evaluation. Updated sister Radha Sargent (next of kin) about the results. Rama Hicks MD
[2017-02-14] MEDS ORDERED: CPR500 PO (14:15)
[2017-04-01] MEDS ORDERED: OXYC1TAB3 PO (08:57)
[2017-04-01] MEDS ORDERED: SULF800T23 PO (08:57)
[2017-04-01] MEDS ORDERED: AMB5 PO (08:57)
[2017-04-01] MEDS ORDERED: TIZA4CAP PO (08:57)
== END 2017-01-23 18:39 | DRG 312 ==
LOC: EDBD 18:06 → C.EDC 18:07 → C.2T 23:01 → EDBEDREQ 23:17 → ENRESERV 23:18 → OBSVTOIN 01-20 11:47 → ENRESERV 01-21 10:18 → C.4E 01-21 11:37
PROVIDERS: ADMIT Internal Medicine; ATTEND Internal Medicine
DX: I95.1 Orthostatic hypotension (principal); N18.3 Chronic kidney disease, stage 3 (moderate); G80.9 Cerebral palsy, unspecified; E11.9 Type 2 diabetes mellitus without complications; D64.9 Anemia, unspecified; Z86.73 Personal history of transient ischemic attack (TIA), and cerebral infarction without residual deficits; Z87.891 Personal history of nicotine dependence; Z79.82 Long term (current) use of aspirin; Z79.4 Long term (current) use of insulin

== ENCOUNTER 2017-02-09 07:47 | Inpatient (IN) | payer OTHER ==
[~2017-02-09] VITALS: Ht 165.1 cm; Wt 91.0 kg
[2017-02-09] VITALS (19 sets, daily range): BP systolic 88–131; BP diastolic 48–85; PULSE 20–83; TEMP 36.5–37.2; O2SAT 93–98; Ht 165.1 cm; Wt 91.0 kg
[~2017-02-09 07:47] MED LIST changes: -ACET-1311 PO; -CAMPLOT10 TOP; -CLIN300C10 PO; +INSDGI SQ; +LINICRE TOP; +MENT4GEL TOP; -MIDO2.5T PO; -MOML PO; +NRV5 PO; +NVLG SQ; +NYSCR30 EXT; -SENN-104 PO; +TRMCR130WC TOP; +WOUN1PAD TOP; +[UNRECOGNIZED DRUG - CODE] TOP
[2017-02-09] MEDS ORDERED: OXGN (08:02)
[2017-02-09] MEDS ORDERED: TERB1CRE10 TOP (08:02)
--- NOTE | 2017-02-09 08:11 | EMERGENCY ROOM VISIT NOTE ---
History Report prepared by Sonia: Anna Elizabeth Under the Supervision of: Dr. Delbert Bermudez M.D. 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 Per nursing staff, the patient lives at [facility] and was brought to the ED by ambulance after the episode. En route the patient was reported to be "barely responsive" and began talking on arrival to the ED. Patient was noted to have a low blood pressure on arrival. The patient states that 2 days ago he wasn't feeling well with chills and a fever. Since then, he notes that he has had some tiredness. He denies any abdominal pain and weakness. The patient reports that he has a history of anemia and notes that he is supposed to have a blood transfusion today. He states that he ate a normal breakfast this morning and was not feeling ill. Source of History: patient Onset: just CIGARETTE EXAMINER Position: other (global) Quality: other (unresponsive) Timing: other (episode) Associated Symptoms: No abdominal pain, No weakness Note: Pt complains of tiredness. Review of Systems All systems have been listed, reviewed, and are negative other than those previously mentioned. Please see Additional Medical History Sheet. Past Medical & Surgical Medical Problems: (1) Anemia (2) Cerebral palsy (3) CKD (chronic kidney disease) stage 3, GFR 30-59 ml/min (4) DMII (diabetes mellitus, type 2) (5) Fever (6) Symptomatic anemia (7) Syncope Family History No pertinent family history Social History Smoking Status: Former Smoker Alcohol Use: none Drug Use: none Marital Status: single Housing Status: intermediate Occupation Status: disabled Current/Historical Medications Scheduled Amlodipine Besylate (Amlodipine Besylate), 10 MG PO DAILY Aspirin (Aspirin), 81 MG PO DAILY Gabapentin (Neurontin), 200 MG PO AMPM Gabapentin (Neurontin), 100 MG PO NOON Home O2 Therapy (Oxygen), 2-4 LITERS NA PRN Insulin Aspart (Novolog), 6 UNITS SQ TIDM Insulin Glargine (Lantus), 10 UNITS SQ HS Ketoconazole (Topical) (Ketoconazole), 1 APPLN TOP 2XWK Lansoprazole (Prevacid), 15 MG PO DAILY Levothyroxine Sodium (Levothyroxine Sodium), 50 MCG PO DAILY Menthol-Methyl Salicylate (Juliette (Icy Hot Extra Strength), 1 APPLN TOP PRN Polyethylene Glycol 3350 (Miralax), 17 GM PO DAILY Ranitidine (Zantac), 150 MG PO QAM Terbinafine Hcl (Topical) (Lamisil At Athletes Foot), 1 APPLN TOP BID Tizanidine (Zanaflex), 4 MG PO TID Scheduled PRN Acetaminophen Tab (Tylenol), 650 MG PO Q4 PRN for Fever Camphor & Menthol (Men-Phor), 1 APPLN TOP QID PRN for Ipratropium-Albuterol (Duoneb), 1 TREATMENT INH Q4H PRN for Wheezing Menthol (Mouth-Throat) ([place] Cough Drops), 1 DROP PO Q2 PRN for COUGH/SORE THROAT Menthol (Topical Analgesic) (Biofreeze), 1 APPLN TOP DAILY PRN for PRN Ondansetron Hcl (Zofran), 4 MG PO QAM PRN for Nausea Oxycodone HCl (Oxycodone HCl), 5 MG PO Q6H PRN for moderate-severe pain Zolpidem Tartrate (Ambien), 5 MG PO HS PRN for Insomnia Allergies Coded Allergies: Amoxicillin (Verified Allergy, Mild, RASH HEAD TO TOE, 01/19/17) Head to Toe Rash Clavulanic Acid (Verified Allergy, Mild, RASH HEAD TO TOE, 01/19/17) Head to Toe Rash Physical Exam Vital Signs Date Time Temp Pulse Resp B/P (MAP) Pulse Ox O2 Delivery O2 Flow Rate FiO2 02/09/17 09:36 37.7 70 18 87/59 96 Room Air 02/09/17 09:21 68 10 94/67 96 Room Air 02/09/17 09:16 70 14 104/69 98 Room Air 02/09/17 09:06 64 20 94/65 96 Room Air 02/09/17 08:54 68 21 100/65 96 02/09/17 08:37 64 19 90/61 98 Room Air 02/09/17 08:30 70 12 102/62 98 Room Air 02/09/17 08:25 66 12 84/57 98 Room Air 02/09/17 08:21 62 16 84/58 97 Room Air 02/09/17 08:16 68 16 86/55 99 Room Air 02/09/17 08:10 64 20 82/55 97 Room Air 02/09/17 08:02 68 24 82/60 95 Room Air 02/09/17 07:54 70 02/09/17 07:47 36.7 70 21 72/53 95 Room Air 02/09/17 07:47 96 Room Air Physical Exam GENERAL: Patient awake, alert, oriented x 3. Patient follows commands. Slow to respond to questions. SKIN: No erythema, pallor, cyanosis or rash HEENT: Normal head, pupils equal, reactive to light and accommodation. Mucous membranes are dry. Dentures to upper mouth, none lower. Neck: Without adenopathy , no neck vein distention. LUNGS: Clear to auscultation. No wheezes, no rales, no rhonchi. HEART: No murmurs. No gallops. No rubs. Heart sounds muffled. ABDOMEN: No masses, no rebound, no hepatomegaly or splenomegaly. EXTREMITIES: No signs of trauma. No pedal or pretibial edema. No calf or thigh tenderness. Brace on the left leg, moves all extremities. NEUROLOGIC: Cranial nerves II-XII within normal limits. No gross motor sensory function deficits. RECTAL: Large external hemorrhoid, minimal stool which is guaiac negative. Medical Decision & Procedures ER Provider Diagnostic Interpretation: X ray results are stated below per my interpretation and the radiologist's interpretation. CHEST ONE VIEW PORTABLE HISTORY: Altered mental status. COMPARISON: Chest 01/19/2017. FINDINGS: The heart remains mildly enlarged. Left basilar linear densities have improved. No new focal lung consolidations to suggest pneumonia. No evidence for pulmonary edema. No pleural effusions. No pneumothorax. Cervical spinal fusion hardware. IMPRESSION: Stable mild cardiomegaly. No acute process within the chest. Electronically signed by: Haseeb Monteiro M.D. Laboratory Results 02/09/17 08:05 Red Blood Count 1.66, Mean Corpuscular Volume 101.8, Mean Corpuscular Hemoglobin 34.3, Mean Corpuscular Hemoglobin Concent 33.7, Mean Platelet Volume 11.6 02/09/17 08:05 Test 02/09/17 08:05 02/09/17 08:10 02/09/17 08:12 02/09/17 08:30 White Blood Count 8.12 K/uL (4.8-10.8) Red Blood Count 1.66 M/uL (4.7-6.1) Hemoglobin 5.7 g/dL (14.0-18.0) Hematocrit 16.9 % (42-52) Mean Corpuscular Volume 101.8 fL (80-100) Mean Corpuscular Hemoglobin 34.3 pg (25-34) Mean Corpuscular Hemoglobin Concent 33.7 g/dl (32-36) Platelet Count 211 K/uL (130-400) Mean Platelet Volume 11.6 fL (7.4-10.4) RDW Standard Deviation 71.0 fL (36.4-46.3) RDW Coefficient of Variation 19.9 % (11.5-14.5) Nucleated RBC Absolute Count (auto) 0.04 K/uL (0-0) Neutrophils % (Manual) 8.0 % Lymphocytes % (Manual) 11.6 % Monocytes % (Manual) 62.5 % Eosinophils % (Manual) 10.7 % Basophils % (Manual) 2.7 % (0-2) Metamyelocytes % 0.9 % Blast Cells % 3.6 % Nucleated Red Blood Cells % 0.5 % Neutrophils # (Manual) 0.65 K/uL (1.4-6.5) Total Absolute Neutrophils 0.65 K/uL (1.4-6.5) Lymphocytes # (Manual) 0.94 K/uL (1.2-3.4) Total Absolute Lymphocytes 0.94 K/uL (1.2-3.4) Monocytes # (Manual) 5.08 K/uL (0.11-0.59) Eosinophils # (Manual) 0.87 K/uL (0-0.5) Basophils # (Manual) 0.22 K/uL (0-0.2) Metamyelocytes # 0.07 K/uL (0-0) Blast Cells # 0.29 K/uL (0-0) Blood Smear Review Giant Platelets 1+ Basophilic Stippling 1+ Rouleau 1+ Absolute Reticulocyte Count 0.03 10^6/uL (0.02-0.10) Percent Reticulocyte Count 2.0 % (0.5-2.0) Estimated GFR () 25.7 Estimated GFR (Non- 22.2 BUN/Creatinine Ratio 10.7 (10-20) Calcium Level 8.0 mg/dl (8.5-10.1) Total Bilirubin 0.4 mg/dl (0.2-1) Aspartate Amino Transf (AST/SGOT) 26 U/L (15-37) Alanine Aminotransferase (ALT/SGPT) 25 U/L (12-78) Alkaline Phosphatase 67 U/L (45-117) Total Protein 7.4 gm/dl (6.4-8.2) Albumin 2.2 gm/dl (3.4-5.0) Globulin 5.2 gm/dl (2.5-4.0) Albumin/Globulin Ratio 0.4 (0.9-2) Thyroid Stimulating Hormone (TSH) 3.560 uIu/ml (0.300-4.500) Bedside Troponin I < 0.030 ng/ml (0-0.045) Bedside Hemoglobin 6.5 g/dl (14.0-18.0) Bedside Hematocrit 19 % (42-52) Bedside Sodium 136 mEq/L (135-144) Bedside Potassium 4.6 mEq/L (3.3-5.0) Bedside Chloride 100 mEq/L (101-112) Bedside Total CO2 24 mEq/l (24-31) Anion Gap 18.0 mmol/L (16-25) Bedside Blood Urea Nitrogen 31 mg/dl (7-18) Bedside Creatinine 2.6 mg/dl (0.6-1.3) Bedside Glucose (other) 217 mg/dl (70-99) Bedside Ionized Calcium (Olga Lidia) 1.12 mmol/l (1.12-1.32) Bedside Lactic Acid Venous 2.03 mmol/L (0.90-1.70) Laboratory results as stated above per my review. Medications Administered Medications (Trade) Dose Ordered Sig/Lucille Route Start Time Stop Time Status Last Admin Dose Admin Sodium Chloride 1,000 ml @ 1,000 mls/hr Q1H ONCE IV 02/09/17 08:15 02/09/17 09:14 DC 02/09/17 08:08 1,000 MLS/HR ECG Indication: weakness Rate (beats per minute): 69 Rhythm: normal sinus Findings: no acute ischemic change, no ectopy ED Course 0752: Past medical records reviewed. The patient was evaluated in room B1. A complete history and physical examination was performed. 0815: Sodium Chloride 1000 ml @ 1000 mls/hr IV. 0831: I reevaluated the patient, he is more responsive and his blood pressure is better. His lactic acid is 2.03 0848: I performed a rectal exam 0857: Discussed the patient's case with Dr. Hurley. The patient will be evaluated for further management. 1021: I reevaluated the patient, he is getting blood. 1032: Upon reevaluation, the patient is doing well. I discussed today's findings with the patient. He verbalized agreement of the treatment plan. I spoke with Dr. Brady of the [facility] Hospitalist Service to evaluate the patient for further management. Medical Decision Differential diagnosis includes but is not limited to dehydration, hypotension, anemia, infection including pneumonia, sepsis, UTI. The patient was sent to the [facility] for a blood transfusion but was unresponsive and therefore sent to the ED. On arrival he was responding to us but was hypotensive. He was given IV fluids and an evaluation ensued. Multiple labs were obtained. The patient was markedly anemic. He was typed and crossed and transfused in the ED. Because of the altered mental status the patient will require further evaluation in the hospital. I discussed care with the patient and with the hospitalist. Exact source of his anemia remains unknown. Medication Reconcilliation Current Medication List: was personally reviewed by me Blood Pressure Screening Patient's blood pressure: Low blood pressure Blood pressure disposition: Did not require urgent referral Consults Time Called: [phone] Consulting Physician: Dr. Jose Antonio Trent Returned Call: [phone] Discussed the patient's case with Dr. Lema. The patient will be evaluated for further management. Impression Primary Impression: Anemia Additional Impression: Altered mental status Scribe Attestation The scribe's documentation has been prepared under my direction and personally reviewed by me in its entirety. I confirm that the note above accurately reflects all work, treatment, procedures, and medical decision making performed by me. Departure Information Dispostion Being Evaluated By Hospitalist Referrals Geo Varela M.D. (PCP) Patient Instructions My [facility] Problem Qualifiers
[2017-02-09] MEDS ORDERED: SODIUM CHLORIDE 0.9% 1000ML 1,000 ML IV ONE (08:15)
[2017-02-09 08:25] LABS: ISTAT CREATININE 2.6 mg/dl (0.6-1.3); ISTAT HEMOGLOBIN 6.5 g/dl (14.0-18.0); ISTAT IONIZED CALCIUM 1.12 mmol/l (1.12-1.32)
--- NOTE | 2017-02-09 08:31 | DIAGNOSTIC IMAGING REPORT ---
CHEST ONE VIEW PORTABLE HISTORY: Altered mental status. COMPARISON: Chest 01/19/2017. FINDINGS: The heart remains mildly enlarged. Left basilar linear densities have improved. No new focal lung consolidations to suggest pneumonia. No evidence for pulmonary edema. No pleural effusions. No pneumothorax. Cervical spinal fusion hardware. IMPRESSION: Stable mild cardiomegaly. No acute process within the chest. Electronically signed by: Haseeb Monteiro M.D. 02/09/2017 8:29 AM Dictated Date/Time: 02/09/2017 8:28 AM
[2017-02-09 08:44] LABS: HEMATOCRIT 16.9 % (42-52); MEAN CELL VOLUME 101.8 fL (80-100); MEAN CORPUSCULAR HEMOGLOBIN 34.3 pg (25-34); MEAN CORPUSCULAR HGB CONC 33.7 g/dl (32-36); MEAN PLATELET VOLUME 11.6 fL (7.4-10.4); PLATELET COUNT 211 K/uL (130-400); RED BLOOD COUNT 1.66 M/uL (4.7-6.1); WHITE BLOOD COUNT 8.12 K/uL (4.8-10.8)
[2017-02-09 08:52] LABS: ALT/SGPT 25 U/L (12-78); BLOOD UREA NITROGEN 29 mg/dl (7-18); BUN/CREATININE RATIO 10.7 (10-20); CARBON DIOXIDE 25 mmol/L (21-32); CHLORIDE 104 mmol/L (98-107); GLUCOSE 212 mg/dl (70-99); POTASSIUM 4.6 mmol/L (3.5-5.1); SODIUM 136 mmol/L (136-145)
[2017-02-09 08:55] LABS: ALB/GLOB RATIO 0.4 (0.9-2); ALKALINE PHOSPHATASE 67 U/L (45-117); AST/SGOT 26 U/L (15-37)
[2017-02-09] MEDS ORDERED: GLUCOSE 40% GEL 15 GM TUBE PO PRN (10:15)
[2017-02-09] MEDS ORDERED: ACETAMINOPHEN 325 MG TAB PO PRN (10:15)
[2017-02-09] MEDS ORDERED: GLUCOSE 10 TABS/TUBE PO PRN (10:15)
[2017-02-09] MEDS ORDERED: GLUCAGON FOR INJ 1 MG VIAL SQ PRN (10:15)
[2017-02-09] MEDS ORDERED: DEXTROSE 50% 50 ML SYR IV PRN (10:15)
[2017-02-09] MEDS ORDERED: ONDANSETRON INJ 2 MG/ML 2 ML VIAL IV PRN (10:15)
[2017-02-09] MEDS ORDERED: ALBUT/IPRATROP 3MG/0.5MG NEB 3 ML VIAL INH PRN (10:30)
[2017-02-09] MEDS ORDERED: FUROSEMIDE 40 MG/4 ML VIAL ONE (11:09)
--- NOTE | 2017-02-09 11:12 | History and Physical ---
History & Physical Date & Time of Service: Feb 09, 2017 at 10:41 Chief Complaint: Other Comp Primary Care Physician: Geo Varela M.D. 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 He was in the [facility] for blood that was ordered per transfusion and was not responding to area staff. He received 1500 cc NS in the ER and blood was started with an improvement in blood pressure (initially in the 80s systolic), level of alertness and mental status. He reports feeling cold and weak in general, but otherwise has no symptoms. ROS reveals a recent episode of SOB at [facility] two nights ago with a fever and the patient reports chills. Denies headaches, sinus congestion, sore throat, cough, wheezing, chest pain, abdominal pain, nausea, vomiting, diarrhea, blood in stool, pain with urinating or changes in urination habits recently. He is wheelchair-bound at baseline and is somewhat stiff and difficult to move on exam today.He is in positive spirits and laughing with staff. First of two units of blood is currently infusing. In the ER, CXR is clear for acute process, H/H reveals 5.7/ 17, WBC 8, PLT 211. Of note, he has a chronic history of orthostatic hypotension and was on midodrine, which was stopped during his recent admission in December for syncope. The syncopal episode was thought 2/2 OH, however, despite being taken off his midodrine, his BP remained elevated and Norvasc was started as a new medication. He did not come in on this today, so presume this was stopped, which is appropriate given his current BP. Recent hematology visit to Dr. Person on 01/31. 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 More studies were drawn and pt has had no further contact with Oncology office at this point. Notable ferritin is >1000 and retic count is elevated. Past Medical/Surgical History Medical Problems: (1) Cerebral palsy Status: Chronic (2) CKD (chronic kidney disease) stage 3, GFR 30-59 ml/min Status: Chronic (3) DMII (diabetes mellitus, type 2) Status: Chronic Family History No pertinent family history Social History Smoking Status: Former Smoker (cigars, wuit 1999) Smokeless Tobacco Use: No Alcohol Use: none Drug Use: none Marital Status: Housing status: [facility] 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 Status: disabled Immunizations History of Influenza Vaccine: Unknown History of Tetanus Vaccine?: Unknown History of Pneumococcal: Unknown History of Hepatitis B Vaccine: Unknown Multi-Drug Resistant Organisms History of MDRO: Yes Type of MDRO: MRSA Allergies Coded Allergies: Amoxicillin (Verified Allergy, Mild, RASH HEAD TO TOE, 01/19/17) Head to Toe Rash Clavulanic Acid (Verified Allergy, Mild, RASH HEAD TO TOE, 01/19/17) Head to Toe Rash Home Medications Scheduled Amlodipine Besylate (Amlodipine Besylate), 10 MG PO DAILY Aspirin (Aspirin), 81 MG PO DAILY Gabapentin (Neurontin), 200 MG PO AMPM Gabapentin (Neurontin), 100 MG PO NOON Home O2 Therapy (Oxygen), 2-4 LITERS NA PRN Insulin Aspart (Novolog), 6 UNITS SQ TIDM Insulin Glargine (Lantus), 10 UNITS SQ HS Ketoconazole (Topical) (Ketoconazole), 1 APPLN TOP 2XWK Lansoprazole (Prevacid), 15 MG PO DAILY Levothyroxine Sodium (Levothyroxine Sodium), 50 MCG PO DAILY Menthol-Methyl Salicylate (Juliette (Icy Hot Extra Strength), 1 APPLN TOP PRN Polyethylene Glycol 3350 (Miralax), 17 GM PO DAILY Ranitidine (Zantac), 150 MG PO QAM Terbinafine Hcl (Topical) (Lamisil At Athletes Foot), 1 APPLN TOP BID Tizanidine (Zanaflex), 4 MG PO TID Scheduled PRN Acetaminophen Tab (Tylenol), 650 MG PO Q4 PRN for Fever Camphor & Menthol (Men-Phor), 1 APPLN TOP QID PRN for Ipratropium-Albuterol (Duoneb), 1 TREATMENT INH Q4H PRN for Wheezing Menthol (Mouth-Throat) (Flint Cough Drops), 1 DROP PO Q2 PRN for COUGH/SORE THROAT Menthol (Topical Analgesic) (Biofreeze), 1 APPLN TOP DAILY PRN for PRN Ondansetron Hcl (Zofran), 4 MG PO QAM PRN for Nausea Oxycodone HCl (Oxycodone HCl), 5 MG PO Q6H PRN for moderate-severe pain Zolpidem Tartrate (Ambien), 5 MG PO HS PRN for Insomnia Review of Systems Constitutional: + fever, + chills, + weakness, + fatigue Eyes: No worsening of vision ENT: No nasal symptoms, No sore throat Respiratory: + shortness of breath, No cough, No wheezing Cardiovascular: No chest pain Abdomen: No pain, No nausea, No vomiting Musculoskeletal: + problem reported (chronic tetraplegia, mucle pain in legs at night, takes oxycodone for this. Chronic muscle spasms, takes Tizanadine for this.) Genitourinary - Male: No hematuria, No dysuria, No urinary frequency, No urinary urgency Neurologic: + numbness/tingling (hands were tingling and cold two nights ago, currently not present. ) Psychiatric: No problem reported Hematologic / Lymphatic: No abnormal bleeding/bruising Integumentary: + itch (top of gluteal fold), No rash, No new/changing skin lesions Physical Exam Vital Signs Date Time Temp Pulse Resp B/P (MAP) Pulse Ox O2 Delivery O2 Flow Rate FiO2 02/09/17 10:37 36.6 70 18 96/66 96 02/09/17 10:21 72 22 104/53 93 02/09/17 10:17 93 Room Air 02/09/17 10:10 37.0 76 18 89/48 94 02/09/17 09:56 36.6 70 18 91/65 96 02/09/17 09:36 37.7 70 18 87/59 96 Room Air 02/09/17 09:21 68 10 94/67 96 Room Air 02/09/17 09:16 70 14 104/69 98 Room Air 02/09/17 09:06 64 20 94/65 96 Room Air 02/09/17 08:54 68 21 100/65 96 02/09/17 08:37 64 19 90/61 98 Room Air 02/09/17 08:30 70 12 102/62 98 Room Air 02/09/17 08:25 66 12 84/57 98 Room Air 02/09/17 08:21 62 16 84/58 97 Room Air 02/09/17 08:16 68 16 86/55 99 Room Air 02/09/17 08:10 64 20 82/55 97 Room Air 02/09/17 08:02 68 24 82/60 95 Room Air 02/09/17 07:54 70 02/09/17 07:47 36.7 70 21 72/53 95 Room Air 02/09/17 07:47 96 Room Air General Appearance: WD/WN, no apparent distress Head: normocephalic, atraumatic Eyes: normal inspection, PERRL (pupils are equal and round bilaterally), sclerae normal ENT: hearing grossly normal Neck: trachea midline Respiratory/Chest: lungs clear, normal breath sounds, no respiratory distress, no accessory muscle use Cardiovascular: regular rate, rhythm, no edema, no JVD, no murmur Abdomen/GI: normal bowel sounds, non tender, soft, occult blood negative (per ER physician) Back: + pertinent finding (gluteal stage II ulcerations-multiple in sacral area ) Extremities/Musculoskelatal: + pertinent finding (tetraplegia, stiffness in extremities, feet pointed down) Neurologic/Psych: alert, normal mood/affect, oriented x 3 Skin: normal color, + pertinent finding (sacral ulcerations noted) Diagnostics Laboratory Results 02/09/17 08:05 Red Blood Count 1.66, Mean Corpuscular Volume 101.8, Mean Corpuscular Hemoglobin 34.3, Mean Corpuscular Hemoglobin Concent 33.7, Mean Platelet Volume 11.6 02/09/17 08:05 Test 02/09/17 08:05 02/09/17 08:10 02/09/17 08:12 02/09/17 08:30 White Blood Count 8.12 K/uL (4.8-10.8) Red Blood Count 1.66 M/uL (4.7-6.1) Hemoglobin 5.7 g/dL (14.0-18.0) Hematocrit 16.9 % (42-52) Mean Corpuscular Volume 101.8 fL (80-100) Mean Corpuscular Hemoglobin 34.3 pg (25-34) Mean Corpuscular Hemoglobin Concent 33.7 g/dl (32-36) Platelet Count 211 K/uL (130-400) Mean Platelet Volume 11.6 fL (7.4-10.4) RDW Standard Deviation 71.0 fL (36.4-46.3) RDW Coefficient of Variation 19.9 % (11.5-14.5) Nucleated RBC Absolute Count (auto) 0.04 K/uL (0-0) Nucleated Red Blood Cells % 0.5 % Blood Smear Review Estimated GFR () 25.7 Estimated GFR (Non- 22.2 BUN/Creatinine Ratio 10.7 (10-20) Calcium Level 8.0 mg/dl (8.5-10.1) Total Bilirubin 0.4 mg/dl (0.2-1) Aspartate Amino Transf (AST/SGOT) 26 U/L (15-37) Alanine Aminotransferase (ALT/SGPT) 25 U/L (12-78) Alkaline Phosphatase 67 U/L (45-117) Total Protein 7.4 gm/dl (6.4-8.2) Albumin 2.2 gm/dl (3.4-5.0) Globulin 5.2 gm/dl (2.5-4.0) Albumin/Globulin Ratio 0.4 (0.9-2) Bedside Troponin I < 0.030 ng/ml (0-0.045) Bedside Hemoglobin 6.5 g/dl (14.0-18.0) Bedside Hematocrit 19 % (42-52) Bedside Sodium 136 mEq/L (135-144) Bedside Potassium 4.6 mEq/L (3.3-5.0) Bedside Chloride 100 mEq/L (101-112) Bedside Total CO2 24 mEq/l (24-31) Anion Gap 18.0 mmol/L (16-25) Bedside Blood Urea Nitrogen 31 mg/dl (7-18) Bedside Creatinine 2.6 mg/dl (0.6-1.3) Bedside Glucose (other) 217 mg/dl (70-99) Bedside Ionized Calcium (Olga Lidia) 1.12 mmol/l (1.12-1.32) Bedside Lactic Acid Venous 2.03 mmol/L (0.90-1.70) Test 02/09/17 10:39 Date/Time Source Procedure Growth Status 02/09/17 10:39 Blood Blood Culture Pending Ordered Results Past 24 Hours Test 02/09/17 08:05 02/09/17 08:10 02/09/17 08:12 02/09/17 08:30 Range/Units White Blood Count 8.12 4.8-10.8 K/uL Red Blood Count 1.66 4.7-6.1 M/uL Hemoglobin 5.7 14.0-18.0 g/dL Hematocrit 16.9 42-52 % Mean Corpuscular Volume 101.8 80-100 fL Mean Corpuscular Hemoglobin 34.3 25-34 pg Mean Corpuscular Hemoglobin Concent 33.7 32-36 g/dl Platelet Count 211 130-400 K/uL Mean Platelet Volume 11.6 7.4-10.4 fL RDW Standard Deviation 71.0 36.4-46.3 fL RDW Coefficient of Variation 19.9 11.5-14.5 % Nucleated RBC Absolute Count (auto) 0.04 0-0 K/uL Nucleated Red Blood Cells % 0.5 % Blood Smear Review Sodium Level 136 136-145 mmol/L Potassium Level 4.6 3.5-5.1 mmol/L Chloride Level 104 98-107 mmol/L Carbon Dioxide Level 25 21-32 mmol/L Anion Gap 7.0 18.0 16-25 mmol/L Blood Urea Nitrogen 29 7-18 mg/dl Creatinine 2.70 0.60-1.40 mg/dl Estimated GFR () 25.7 Estimated GFR (Non- 22.2 BUN/Creatinine Ratio 10.7 10-20 Random Glucose 212 70-99 mg/dl Calcium Level 8.0 8.5-10.1 mg/dl Total Bilirubin 0.4 0.2-1 mg/dl Aspartate Amino Transf (AST/SGOT) 26 15-37 U/L Alanine Aminotransferase (ALT/SGPT) 25 12-78 U/L Alkaline Phosphatase 67 45-117 U/L Total Protein 7.4 6.4-8.2 gm/dl Albumin 2.2 3.4-5.0 gm/dl Globulin 5.2 2.5-4.0 gm/dl Albumin/Globulin Ratio 0.4 0.9-2 Bedside Troponin I < 0.030 0-0.045 ng/ml Bedside Hemoglobin 6.5 14.0-18.0 g/dl Bedside Hematocrit 19 42-52 % Bedside Sodium 136 135-144 mEq/L Bedside Potassium 4.6 3.3-5.0 mEq/L Bedside Chloride 100 101-112 mEq/L Bedside Total CO2 24 24-31 mEq/l Bedside Blood Urea Nitrogen 31 7-18 mg/dl Bedside Creatinine 2.6 0.6-1.3 mg/dl Bedside Glucose (other) 217 70-99 mg/dl Bedside Ionized Calcium (Olga Lidia) 1.12 1.12-1.32 mmol/l Bedside Lactic Acid Venous 2.03 0.90-1.70 mmol/L Diagnostic Radiology CHEST ONE VIEW PORTABLE HISTORY: Altered mental status. COMPARISON: Chest 01/19/2017. FINDINGS: The heart remains mildly enlarged. Left basilar linear densities have improved. No new focal lung consolidations to suggest pneumonia. No evidence for pulmonary edema. No pleural effusions. No pneumothorax. Cervical spinal fusion hardware. IMPRESSION: Stable mild cardiomegaly. No acute process within the chest EKG SR 79, no ischemic changes. 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 Symptomatic anemia-likely 2/2 underlying hematologic process which is still under investigation. Hematology consulted. Retic count and peripheral smear ordered. Flow was nonspecific recently. No iron deficiency seen on outpatient bloodwork and FOBT is negative per ER physician. No active bleeding reported by patient. Two units of blood being transfused now. With 1500mL of fluid and extra volume from blood ordered, will give Lasix kaylyn in between units of blood to prevent fluid overload. 2. Cerebral palsy with tetraplegia-PT/OT to assist with his level of functioning. Will discuss urination habits as he is limited with his movement. May need to consider Puentes placement in setting of JULITA 3. JULITA-received IVF in ER and urine studies were ordered. Will trend PRP and consider placing Puentes as above. 4. Hypotension-chronic, was recently admitted in December for syncope thought 2/2 OH. As he was on midodrine, his BP went up and despite stopping this, BP remained elevated. He was sent out on Norvasc which is not present on his list of meds currently. BP 90s systolic at this time. No antihypertensives at this time. 5. Sacral wounds-Wound care consult placed. aquacell/Optifoam ordered for now. 6. DMII-cont home Lantus 10 Units qHS and ISS/carb coverage 7. h/o MRSA in sputum-contact precautions DVT proph-SCDs DNR-confirmed with patient and documented discussion with medical personnel at [facility]. Dispo-uncertain at this time. DO [email or web address] Hospital[facility] Level of Care Telemetry Advanced Directives Existing Living Will: No Existing Power of Principal Technical Specialist: Yes (BASHIR SISTER ) Resuscitation Status FULL RESUSCITATION VTE Prophylaxis VTE Risk Assessment Done? Y/N: Yes Risk Level: High Given or contraindicated: SCD's, Contraindicated Social Service Consult Lives in Intermediate
[2017-02-09 11:47] LABS: URINE APPEARANCE CLEAR (CLEAR); URINE BILIRUBIN NEG (NEG); URINE COLOR YELLOW; URINE EPITHELIAL CELL AUTO 0-5 /lpf (0-5); URINE NITRITE NEG (NEG); URINE PH 7.5 (4.5-7.5); URINE SPECIFIC GRAVITY 1.008 (1.000-1.030); UROBILINOGEN NEG (NEG)
[2017-02-09 11:49] LABS: GIANT PLATELETS 1+; ROULEAUX 1+
[2017-02-09 11:52] LABS: BASO ABS # 0.22 K/uL (0-0.2); BASOPHIL % 2.7 % (0-2); COMPLETE YES; EOSINOPHIL % 10.7 %; LYMPH ABS # 0.94 K/uL (1.2-3.4); LYMPHOCYTE % 11.6 %; META ABS # 0.07 K/uL (0-0); METAMYELOCYTE % 0.9 %
[2017-02-09 11:54] LABS: MANUAL MICROSCOPIC REQUIRED? NO; REVIEW REQ? NO; SULFASALICYLIC ACID POS (NEG)
[2017-02-09] MEDS ORDERED: FUROSEMIDE INJ 20 MG in SYRINGE 0 ML IV SCH (12:30)
[2017-02-09] MEDS: GABAPENTIN 100 MG CAP PO SCH ×2 (13:15→20:10)
[2017-02-09] MEDS: INSULIN ASPART 100 UNITS/ML 3 ML PEN SC SCH ×2 (16:15→20:12)
[2017-02-09 17:57] LABS: HEMATOCRIT 28.5 % (42-52)
[2017-02-09] MEDS: TERBINAFINE CR 30 GM TUBE EXT SCH (20:10)
[2017-02-09] MEDS: INSULIN GLARGINE SOLOSTAR 100 UNITS/ML 3 ML PEN SC SCH (20:11)
[2017-02-09] MEDS: OXYCODONE HCL IR 5 MG TAB (IMMEDIATE RELEASE) PO PRN (20:13)
[2017-02-10] VITALS (11 sets, daily range): BP systolic 103–136; BP diastolic 62–81; PULSE 73–110; TEMP 36.8–37.4; O2SAT 94–99
[2017-02-10] MEDS: LEVOTHYROXINE 50 MCG TAB PO SCH (05:56)
[2017-02-10 06:53] LABS: BUN/CREATININE RATIO 10.9 (10-20); CALCIUM 8.5 mg/dl (8.5-10.1); CREATININE 2.2 mg/dl (0.60-1.40); POTASSIUM 4.1 mmol/L (3.5-5.1)
[2017-02-10] MEDS: INSULIN ASPART 100 UNITS/ML 3 ML PEN SC SCH ×4 (07:00→20:43)
[2017-02-10 07:19] LABS: HEMATOCRIT 32.2 % (42-52); MEAN CELL VOLUME 96.7 fL (80-100); MEAN CORPUSCULAR HEMOGLOBIN 32.1 pg (25-34); MEAN CORPUSCULAR HGB CONC 33.2 g/dl (32-36); MEAN PLATELET VOLUME 11.8 fL (7.4-10.4); PLATELET COUNT 200 K/uL (130-400); RED BLOOD COUNT 3.33 M/uL (4.7-6.1); WHITE BLOOD COUNT 6.38 K/uL (4.8-10.8)
[2017-02-10 07:22] LABS: ANISOCYTOSIS PRESENT; GIANT PLATELETS 1+
[2017-02-10 07:27] LABS: BASO ABS # 0.64 K/uL (0-0.2); BASOPHIL % 10.1 % (0-2); COMPLETE YES; EOSINOPHIL % 14.7 %; LYMPH ABS # 1.98 K/uL (1.2-3.4); LYMPHOCYTE % 31.1 %; MYELOCYTE % 0.9 %; NEUTROPHILS % 10.1 %
[2017-02-10] MEDS: ASPIRIN 81 MG ECTAB PO SCH (07:44)
[2017-02-10] MEDS: TERBINAFINE CR 30 GM TUBE EXT SCH ×2 (07:44→23:37)
[2017-02-10] MEDS: POLYETHYLENE (MIRALAX) 17 GM PACK PO SCH (07:45)
[2017-02-10] MEDS: GABAPENTIN 100 MG CAP PO SCH ×3 (07:45→21:12)
[2017-02-10] MEDS: PANTOprazole SOD 40 MG TAB PO SCH (07:45)
[2017-02-10] MEDS: RANITIDINE HCL 150 MG TAB PO SCH (07:46)
[2017-02-10 07:53] LABS: ESTIMATED AVERAGE GLUCOSE 169 mg/dl; HA1C FLAG Normal (Normal)
--- NOTE | 2017-02-10 11:59 | Clinical Documentation Query ---
JAN De La Cruz : CLINICAL DOCUMENTATION QUERY Patient is a 76 year old male admitted for evaluation and treatment of symptomatic anemia. Patient is wheelchair bound at baseline in the setting of cerebral palsy. Attending integumentary assessment includes "+ itch (top of gluteal fold), No rash, No new/changing skin lesions" but later notes "Sacral wounds-Wound care consult placed. aquacell/Optifoam ordered for now". Wound nurse documentation includes "hree small stage II pressure injuries, present on admission, on buttocks". Please clarify and explicitly specify the location, appropriate stage, and POA status as current documentation is both incomplete and somewhat contradictory. Thank you. In your clinical opinion is this patient being managed for: ( ) Pressure ulcer(s) of (right/left) buttock(s), stage II, POA (x ) Pressure ulcer(s) of the sacrum, stage II, POA ( ) Other explanation of clinical findings (Please Explain) ( ) Unable to determine (Please Define) ( ) Need to Discuss ( ) Not Agree The medical record reflects the following clinical findings, treatment, and risk factors. Clinical Indicators: As above Treatment: WOCN consult, Optifoam, EHOB air mattress Risk Factors: Age, cerebral palsy, functional quadriplegia. Please clarify and document your clinical opinion in the progress notes and discharge summary. Terms such as "probable", "suspected", "likely", "questionable", "possible", or "still to be ruled out" are acceptable. IF IN AGREEMENT, YOU MUST DOCUMENT ABOVE DIAGNOSTIC STATEMENT IN DAILY PROGRESS NOTES AND DISCHARGE SUMMARY. This document is not part of the patient's record. Thank You, Stevie Avalos, RN [phone]
[2017-02-10] MEDS ORDERED: CEFTRIAXONE SOD INJ 1 GM in DEXTROSE 5% ADD-VANTAGE 50ML 50 ML IV SCH (15:00)
[2017-02-10] MEDS ORDERED: VANCOMYCIN INJ 1,000 MG in SODIUM CHLORIDE 0.9% 250ML 250 ML IV ONE (20:30)
[2017-02-10] MEDS ORDERED: NURSING VERBAL MED ORDER ONE (20:30)
[2017-02-10] MEDS: INSULIN GLARGINE SOLOSTAR 100 UNITS/ML 3 ML PEN SC SCH (20:42)
[2017-02-10] MEDS: OXYCODONE HCL IR 5 MG TAB (IMMEDIATE RELEASE) PO PRN (21:02)
[2017-02-10] MEDS ORDERED: VANCOMYCIN CONSULT ACTIVE PRN (21:15)
--- NOTE | 2017-02-10 21:18 | Progress Note ---
Medicine Progress Note Date & Time of Visit: Feb 10, 2017 at 1000. 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 Spoke with nephew, Faraz who is a PA-discussed plan with him and advised that he stay overnight. Objective Last 8 Hrs Date Time Temp Pulse Resp B/P (MAP) Pulse Ox O2 Delivery O2 Flow Rate FiO2 02/10/17 12:51 37.3 82 18 119/80 (93) 95 Room Air 02/10/17 12:00 94 Room Air 02/10/17 11:39 36.8 81 19 103/74 (84) 99 Nasal Cannula 2.0 02/10/17 08:00 94 Room Air 02/10/17 07:52 37.0 88 16 136/81 (99) 98 Nasal Cannula 2.0 Physical Exam: GEN: WNWD, in no acute distress, alert and appropriate HEENT: NC/AT, PERRL, normal sclerae CARDIO: reg rate, S1/2 heard without m/g/r LUNGS: CTA bilaterally, no crackles, rales or wheezes, good diaphragmatic excursion ABD: soft, non-tender, non-distended, no rebound or guarding EXTREMITY: RP and DP palpable 2+ bilat, no LE swelling or edema, extremities are warm and well-perfused N/M: chronic muscle spasms, 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 SKIN: warm and dry, sacral wounds-Stage II Laboratory Results: 02/10/17 06:00 Red Blood Count 3.33, Mean Corpuscular Volume 96.7 #, Mean Corpuscular Hemoglobin 32.1, Mean Corpuscular Hemoglobin Concent 33.2, Mean Platelet Volume 11.8 02/10/17 06:00 Test 02/09/17 08:05 02/09/17 08:10 02/09/17 08:12 02/09/17 08:30 Nucleated RBC Absolute Count (auto) 0.04 K/uL (0-0) Metamyelocytes % 0.9 % Nucleated Red Blood Cells % 0.5 % Metamyelocytes # 0.07 K/uL (0-0) Blood Smear Review Basophilic Stippling 1+ Rouleau 1+ Absolute Reticulocyte Count 0.03 10^6/uL (0.02-0.10) Percent Reticulocyte Count 2.0 % (0.5-2.0) Total Bilirubin 0.4 mg/dl (0.2-1) Aspartate Amino Transf (AST/SGOT) 26 U/L (15-37) Alanine Aminotransferase (ALT/SGPT) 25 U/L (12-78) Alkaline Phosphatase 67 U/L (45-117) Total Protein 7.4 gm/dl (6.4-8.2) Albumin 2.2 gm/dl (3.4-5.0) Globulin 5.2 gm/dl (2.5-4.0) Albumin/Globulin Ratio 0.4 (0.9-2) Thyroid Stimulating Hormone (TSH) 3.560 uIu/ml (0.300-4.500) Bedside Troponin I < 0.030 ng/ml (0-0.045) Bedside Hemoglobin 6.5 g/dl (14.0-18.0) Bedside Hematocrit 19 % (42-52) Bedside Sodium 136 mEq/L (135-144) Bedside Potassium 4.6 mEq/L (3.3-5.0) Bedside Chloride 100 mEq/L (101-112) Bedside Total CO2 24 mEq/l (24-31) Bedside Blood Urea Nitrogen 31 mg/dl (7-18) Bedside Creatinine 2.6 mg/dl (0.6-1.3) Bedside Glucose (other) 217 mg/dl (70-99) Bedside Ionized Calcium (Olga Lidia) 1.12 mmol/l (1.12-1.32) Bedside Lactic Acid Venous 2.03 mmol/L (0.90-1.70) Test 02/09/17 11:25 02/10/17 06:00 02/10/17 20:31 Urine Color YELLOW Urine Appearance CLEAR (CLEAR) Urine pH 7.5 (4.5-7.5) Urine Specific [place] 1.008 (1.000-1.030) Urine Protein 1+ (NEG) Urine Glucose (UA) NEG (NEG) Urine Ketones NEG (NEG) Urine Occult Blood NEG (NEG) Urine Nitrite NEG (NEG) Urine Bilirubin NEG (NEG) Urine Urobilinogen NEG (NEG) Urine Leukocyte Esterase SMALL (NEG) Urine WBC (Auto) >30 /hpf (0-5) Urine RBC (Auto) 0-4 /hpf (0-4) Urine Hyaline Casts (Auto) 0 /lpf (0-5) Urine Epithelial Cells (Auto) 0-5 /lpf (0-5) Urine Bacteria (Auto) 3+ (NEG) Urine Random Creatinine 46.0 mg/dl Urine Random Sodium 39 mEq/L White Blood Count 6.38 K/uL (4.8-10.8) Red Blood Count 3.33 M/uL (4.7-6.1) Hemoglobin 10.7 g/dL (14.0-18.0) Hematocrit 32.2 % (42-52) Mean Corpuscular Volume 96.7 fL (80-100) Mean Corpuscular Hemoglobin 32.1 pg (25-34) Mean Corpuscular Hemoglobin Concent 33.2 g/dl (32-36) Platelet Count 200 K/uL (130-400) Mean Platelet Volume 11.8 fL (7.4-10.4) RDW Standard Deviation 64.0 fL (36.4-46.3) RDW Coefficient of Variation 19.2 % (11.5-14.5) Neutrophils % (Manual) 10.1 % Lymphocytes % (Manual) 31.1 % Monocytes % (Manual) 29.4 % Eosinophils % (Manual) 14.7 % Basophils % (Manual) 10.1 % (0-2) Myelocytes % 0.9 % Blast Cells % 3.7 % Neutrophils # (Manual) 0.64 K/uL (1.4-6.5) Total Absolute Neutrophils 0.64 K/uL (1.4-6.5) Lymphocytes # (Manual) 1.98 K/uL (1.2-3.4) Total Absolute Lymphocytes 1.98 K/uL (1.2-3.4) Monocytes # (Manual) 1.88 K/uL (0.11-0.59) Eosinophils # (Manual) 0.94 K/uL (0-0.5) Basophils # (Manual) 0.64 K/uL (0-0.2) Myelocytes # 0.06 K/uL (0-0) Blast Cells # 0.24 K/uL (0-0) Giant Platelets 1+ Anisocytosis PRESENT Anion Gap 8.0 mmol/L (3-11) Est Creatinine Clear Calc Drug Dose 30.4 ml/min Estimated GFR () 33.0 Estimated GFR (Non- 28.5 BUN/Creatinine Ratio 10.9 (10-20) Estimated Average Glucose 169 mg/dl Hemoglobin A1c 7.5 % (4.5-5.6) Calcium Level 8.5 mg/dl (8.5-10.1) Bedside Glucose 223 mg/dl (70-99) Date/Time Source Procedure Growth Status 02/09/17 14:25 Blood Blood Culture - Preliminary Gram Positive Cocci Resulted 02/09/17 11:25 Urine , Clean Catch Urine Culture - Preliminary Gram Negative Bacilli Resulted Last 24 Hours Test 02/09/17 16:18 02/09/17 17:40 02/09/17 20:02 02/10/17 06:00 Bedside Glucose 153 mg/dl 169 mg/dl Hemoglobin 9.9 g/dL 10.7 g/dL Hematocrit 28.5 % 32.2 % White Blood Count 6.38 K/uL Red Blood Count 3.33 M/uL Mean Corpuscular Volume 96.7 fL Mean Corpuscular Hemoglobin 32.1 pg Mean Corpuscular Hemoglobin Concent 33.2 g/dl Platelet Count 200 K/uL Mean Platelet Volume 11.8 fL RDW Standard Deviation 64.0 fL RDW Coefficient of Variation 19.2 % Neutrophils % (Manual) 10.1 % Lymphocytes % (Manual) 31.1 % Monocytes % (Manual) 29.4 % Eosinophils % (Manual) 14.7 % Basophils % (Manual) 10.1 % Myelocytes % 0.9 % Blast Cells % 3.7 % Neutrophils # (Manual) 0.64 K/uL Total Absolute Neutrophils 0.64 K/uL Lymphocytes # (Manual) 1.98 K/uL Total Absolute Lymphocytes 1.98 K/uL Monocytes # (Manual) 1.88 K/uL Eosinophils # (Manual) 0.94 K/uL Basophils # (Manual) 0.64 K/uL Myelocytes # 0.06 K/uL Blast Cells # 0.24 K/uL Giant Platelets 1+ Anisocytosis PRESENT Sodium Level 140 mmol/L Potassium Level 4.1 mmol/L Chloride Level 106 mmol/L Carbon Dioxide Level 26 mmol/L Anion Gap 8.0 mmol/L Blood Urea Nitrogen 24 mg/dl Creatinine 2.20 mg/dl Est Creatinine Clear Calc Drug Dose 30.4 ml/min Estimated GFR () 33.0 Estimated GFR (Non- 28.5 BUN/Creatinine Ratio 10.9 Random Glucose 123 mg/dl Estimated Average Glucose 169 mg/dl Hemoglobin A1c 7.5 % Calcium Level 8.5 mg/dl Test 02/10/17 06:06 02/10/17 11:10 Bedside Glucose 116 mg/dl 143 mg/dl Assessment & Plan 76 yo M with 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 Symptomatic anemia-likely 2/2 underlying hematologic process which is still under investigation. Hematology consulte-decided against bone marrow biopsy in house.Hb improved to 10.7 after 2 Units blood-good energy, asymptomatic at this time and doing well. 2. JULITA-received IVF in ER and urine studies were ordered. Improved today after volume given. UTI present, empirrically placed on Rocephin pending cultures. Of note, pat stated he had fever a few days back and he has urinary incontinence at baseline. 3. Hypotension-chronic, was recently admitted in December for syncope thought 2/2 OH. As he was on midodrine, his BP went up and despite stopping this, BP remained elevated. He was sent out on Norvasc which is not present on his list of meds currently. BP 90s systolic at this time. No antihypertensives at this time. 4. Sacral wounds-appreciate wound care management. 5. DMII-cont home Lantus 10 Units qHS and ISS/carb coverage 6. h/o MRSA in sputum-contact precautions DVT proph-SCDs DNR-confirmed with patient and documented discussion with medical personnel at [facility]. Dispo-uncertain at this time. Izzy Brady DO [facility] Hospitalist Current Inpatient Medications: Current Inpatient Medications Medications (Trade) Dose Ordered Sig/Lucille Route Start Time Stop Time Status Last Admin Dose Admin Acetaminophen (Tylenol Tab) 650 mg Q4H PRN PO 02/09/17 10:15 03/11/17 10:14 Ondansetron HCl (Zofran Inj) 4 mg Q6H PRN IV 02/09/17 10:15 03/11/17 10:14 Insulin Glargine (Lantus Solostar Pen) 10 units HS SC 02/09/17 21:00 03/11/17 20:59 02/09/17 20:11 10 UNITS Insulin Aspart (novoLOG ASPART) SLIDING SCALE If C... ACHS SC 02/09/17 16:15 03/11/17 16:14 Glucose (Glucose 40% Gel) 15-30 GRAMS 15 GRAMS... UD PRN PO 02/09/17 10:15 03/11/17 10:14 Glucose (Glucose Chew Tab) 4-8 Tablets 4 Tabl... UD PRN PO 02/09/17 10:15 03/11/17 10:14 Dextrose (Dextrose 50% 50ML Syringe) 25-50ML OF 50% DW IV FOR... UD PRN IV 02/09/17 10:15 03/11/17 10:14 Glucagon (Glucagon Inj) 1 mg UD PRN SQ 02/09/17 10:15 03/11/17 10:14 Aspirin (Ecotrin Tab) 81 mg DAILY PO 02/10/17 09:00 03/12/17 08:59 02/10/17 07:44 81 MG Gabapentin (Neurontin Cap) 100 mg DAILY@1200 PO 02/09/17 13:00 03/11/17 12:59 02/10/17 12:08 100 MG Gabapentin (Neurontin Cap) 200 mg BID PO 02/09/17 21:00 03/11/17 20:59 02/10/17 07:45 200 MG Albuterol/ Ipratropium (Duoneb) 3 ml Q4H PRN INH 02/09/17 10:30 03/11/17 10:29 Levothyroxine Sodium (Synthroid Tab) 50 mcg DAILYBB PO 02/10/17 06:00 03/12/17 05:59 02/10/17 05:56 50 MCG Ranitidine HCl (zANTac TAB) 150 mg QAM PO 02/10/17 09:00 03/12/17 08:59 02/10/17 07:46 150 MG Terbinafine HCl (Lamisil At Cream) 1 appl BID EXT 02/09/17 21:00 02/13/17 20:59 02/10/17 07:44 1 APPL Zolpidem Tartrate (Ambien Tab) 5 mg HS PRN PO 02/09/17 10:30 03/11/17 10:29 Pantoprazole Sodium (Protonix Tab) 40 mg QAM PO 02/10/17 09:00 03/12/17 08:59 02/10/17 07:45 40 MG Polyethylene (Miralax Powder Packet) 17 gm DAILY PO 02/10/17 09:00 03/12/17 08:59 02/10/17 07:45 17 GM Tizanidine HCl (Zanaflex Tab) 4 mg TID PO 02/09/17 14:00 03/11/17 13:59 02/10/17 07:45 4 MG Miscellaneous Information (Order Awaiting Action) 1 ea QS N/A 02/09/17 16:00 03/11/17 15:59 Oxycodone HCl (Roxicodone Immediate Rel Tab) 5 mg Q6 PRN PO 02/09/17 10:30 02/23/17 10:29 02/09/17 20:13 5 MG Ceftriaxone Sodium 1 gm/ Dextrose 50 ml @ 100 mls/hr DAILY@1500 IV 02/10/17 15:00 02/20/17 14:59
[2017-02-10] MEDS: ZOLPIDEM TARTRATE 5 MG TAB PO PRN (21:23)
[2017-02-10] MEDS ORDERED: VANCOMYCIN INJ 1,250 MG in SODIUM CHLORIDE 0.9% 250ML 250 ML IV SCH (22:00)
[2017-02-11] VITALS (23 sets, daily range): BP systolic 64–109; BP diastolic 46–71; PULSE 58–130; TEMP 36.5–39.3; O2SAT 5–99
[2017-02-11] MEDS ORDERED: DiphenhydrAMINE HCL 50 MG/ML VIAL IV STA (00:24)
[2017-02-11] MEDS ORDERED: SODIUM CHLORIDE 0.9% 1000ML 1,000 ML IV SCH ×2 (00:30→15:45)
[2017-02-11] MEDS ORDERED: DiphenhydrAMINE HCL 50 MG/ML VIAL ONE (00:31)
[2017-02-11] MEDS ORDERED: NURSING VERBAL MED ORDER ONE ×4 (00:45→16:15)
[2017-02-11] MEDS ORDERED: ACETAMINOPHEN 650 MG SUPP PR STA (05:51)
[2017-02-11] MEDS ORDERED: HYDROCORTISONE IV 100 MG in SYRINGE 0 ML IV STA (06:12)
[2017-02-11] MEDS: LEVOTHYROXINE 50 MCG TAB PO SCH (06:29)
[2017-02-11] MEDS ORDERED: DAPTOMYCIN CONSULT ACTIVE PRN ×2 (07:45)
[2017-02-11] MEDS: POLYETHYLENE (MIRALAX) 17 GM PACK PO SCH (08:00)
[2017-02-11] MEDS ORDERED: DAPTOmycin IV 550 MG in SODIUM CHLORIDE 0.9% 50ML 50 ML IV SCH (08:00)
[2017-02-11 08:08] LABS: HEMATOCRIT 35.6 % (42-52); MEAN CELL VOLUME 98.6 fL (80-100); MEAN CORPUSCULAR HEMOGLOBIN 33.5 pg (25-34); MEAN PLATELET VOLUME 12.4 fL (7.4-10.4); PLATELET COUNT 224 K/uL (130-400); RED BLOOD COUNT 3.61 M/uL (4.7-6.1); WHITE BLOOD COUNT 3.64 K/uL (4.8-10.8)
--- NOTE | 2017-02-11 08:08 | DIAGNOSTIC IMAGING REPORT ---
CHEST ONE VIEW PORTABLE HISTORY: admitted w anemia, now septic, rule out chest disease COMPARISON: Chest 02/09/2017. FINDINGS: The heart is normal in size. Cervical spinal fusion hardware. No pneumothorax. The right lung is clear. There are linear densities within the left lower lobe. This is new from the prior study. No pleural effusions. IMPRESSION: There are new linear densities at the left lower lobe. This favors subsegmental atelectasis. However, a pneumonia could also have a similar appearance. Electronically signed by: Haseeb Monteiro M.D. 02/11/2017 8:07 AM Dictated Date/Time: 02/11/2017 8:05 AM
[2017-02-11] MEDS: TERBINAFINE CR 30 GM TUBE EXT SCH ×2 (08:27→20:13)
[2017-02-11] MEDS: RANITIDINE HCL 150 MG TAB PO SCH (08:28)
[2017-02-11] MEDS: GABAPENTIN 100 MG CAP PO SCH ×3 (08:28→20:10)
[2017-02-11] MEDS: PANTOprazole SOD 40 MG TAB PO SCH (08:28)
[2017-02-11] MEDS: ASPIRIN 81 MG ECTAB PO SCH (08:28)
[2017-02-11 08:35] LABS: BUN/CREATININE RATIO 8.2 (10-20); CALCIUM 7.8 mg/dl (8.5-10.1); CREATININE 2.9 mg/dl (0.60-1.40); MAGNESIUM 1.9 mg/dl (1.8-2.4); POTASSIUM 5.5 mmol/L (3.5-5.1)
[2017-02-11 08:55] LABS: COMPLETE YES; GIANT PLATELETS 2+; LYMPH ABS # 0.61 K/uL (1.2-3.4); LYMPHOCYTE % 16.8 %; MYELOCYTE % 2.7 %; NEUTROPHILS % 48.6 %
[2017-02-11] MEDS ORDERED: SODIUM CHLORIDE 0.9% 500ML 500 ML IV SCH (09:00)
[2017-02-11] MEDS: INSULIN ASPART 100 UNITS/ML 3 ML PEN SC SCH ×3 (09:08→20:07)
[2017-02-11] MEDS ORDERED: AZTREONAM CONSULT ACTIVE PRN ×2 (09:15)
[2017-02-11] MEDS ORDERED: LEVOFLOXACIN CONSULT ACTIVE PRN (09:15)
[2017-02-11] MEDS ORDERED: AZTREONAM 2000 MG in DEXTROSE 5% 100 ML IV ONE (09:15)
--- NOTE | 2017-02-11 09:35 | Progress Note ---
Medicine Progress Note Date & Time of Visit: Feb 11, 2017 at 09:10. 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 Overnight Vancomycin was started for empiric coverage of GPC in 1/2 blood cultures. He developed redness to the skin with a reported rash with infusion, which was stopped. The patient was given hydrocortisone and Benadryl. He was notable lethargic, tachycardic, febrile and hypotensive and was unable to swallow pills overnight 2/2 confusion. This morning rectal temp reveals 103F with BP 102/91, P100, R20, 96 % on 5L with oxymask. Tylenol was given and efforts were taken to reduce temp with ice, misting and a fan. On exam he appears lucid and is not complaining of a cough or any discomfort. He is tachycardic with a regular rhythm, clear lungs to auscultation, notably diaphoretic with erythematous skin with no rash or wheals seen on his skin. Erythema extends down his anterior chest to his knees. Urine culture is growing Provendencia and blood cultures have not speciated. Repeat BCx were drawn, and CXR reveals atelectasis on the L base. Lactate was 3.0 and creatinine was worse this morning. IVF were running at 125mls/hr overnight and initially were stopped until respiratory status could be assessed. Small 500mls bolus given over 4 hours and will trend lactate. Will order CBC with diff to ensure no DRESS. Working diagnosis includes but is not limited to drug reaction vs evolving sepsis vs febrile non-hemolytic transfusion reaction 2/2 use on non-LR blood given on admission. ID consult placed for assistance. Antibiotics were broadened to Daptomycin, Aztreonam ( amox allergy) and Levaquin (for pulmonary coverage of GPCs--h/o MRSA-- and double GN coverage as pt lives in a senior living and at higher risk for pseudomonas) Transferred to telemetry. Family member called for update and not available so LM on vmail. Objective Last 8 Hrs Date Time Temp Pulse Resp B/P (MAP) Pulse Ox O2 Delivery O2 Flow Rate FiO2 02/11/17 08:23 5 Oxymask 02/11/17 08:13 39.3 02/11/17 07:27 37.4 107 22 94/67 (76) 93 Oxymask 5.0 02/11/17 07:27 38.7 100 20 102/71 (81) 96 3.0 02/11/17 01:13 37.7 123 14 91/59 (70) 94 Oxymask 4.0 Physical Exam: GEN: WNWD, in no acute distress, alert and appropriate, diaphoretic HEENT: NC/AT, pupils are equal and round bilaterally, normal sclerae, MMM CARDIO: tachy rate, S1/2 heard without m/g/r LUNGS: CTA bilaterally, no crackles, rales or wheezes, good diaphragmatic excursion ABD: soft, non-tender, non-distended, no rebound or guarding EXTREMITY: RP and DP palpable 2+ bilat, no LE swelling or edema, extremities are warm and well-perfused N/M: chronic muscle spasms, 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 SKIN: warm and dry, sacral wounds-Stage II. Skin on anterior chest is red without rash and this extends down his anterior trunk to his knees bilaterally. Laboratory Results: 02/11/17 07:58 Red Blood Count 3.61, Mean Corpuscular Volume 98.6, Mean Corpuscular Hemoglobin 33.5, Mean Corpuscular Hemoglobin Concent 34.0, Mean Platelet Volume 12.4 02/11/17 07:58 Test 02/09/17 08:05 02/09/17 08:10 02/09/17 08:12 02/09/17 08:30 Metamyelocytes % 0.9 % Metamyelocytes # 0.07 K/uL (0-0) Blood Smear Review Basophilic Stippling 1+ Rouleau 1+ Absolute Reticulocyte Count 0.03 10^6/uL (0.02-0.10) Percent Reticulocyte Count 2.0 % (0.5-2.0) Total Bilirubin 0.4 mg/dl (0.2-1) Aspartate Amino Transf (AST/SGOT) 26 U/L (15-37) Alanine Aminotransferase (ALT/SGPT) 25 U/L (12-78) Alkaline Phosphatase 67 U/L (45-117) Total Protein 7.4 gm/dl (6.4-8.2) Albumin 2.2 gm/dl (3.4-5.0) Globulin 5.2 gm/dl (2.5-4.0) Albumin/Globulin Ratio 0.4 (0.9-2) Thyroid Stimulating Hormone (TSH) 3.560 uIu/ml (0.300-4.500) Bedside Troponin I < 0.030 ng/ml (0-0.045) Bedside Hemoglobin 6.5 g/dl (14.0-18.0) Bedside Hematocrit 19 % (42-52) Bedside Sodium 136 mEq/L (135-144) Bedside Potassium 4.6 mEq/L (3.3-5.0) Bedside Chloride 100 mEq/L (101-112) Bedside Total CO2 24 mEq/l (24-31) Bedside Blood Urea Nitrogen 31 mg/dl (7-18) Bedside Creatinine 2.6 mg/dl (0.6-1.3) Bedside Glucose (other) 217 mg/dl (70-99) Bedside Ionized Calcium (Olga Lidia) 1.12 mmol/l (1.12-1.32) Bedside Lactic Acid Venous 2.03 mmol/L (0.90-1.70) Test 02/09/17 11:25 02/10/17 06:00 02/11/17 07:58 02/11/17 08:14 Urine Color YELLOW Urine Appearance CLEAR (CLEAR) Urine pH 7.5 (4.5-7.5) Urine Specific [place]ord 1.008 (1.000-1.030) Urine Protein 1+ (NEG) Urine Glucose (UA) NEG (NEG) Urine Ketones NEG (NEG) Urine Occult Blood NEG (NEG) Urine Nitrite NEG (NEG) Urine Bilirubin NEG (NEG) Urine Urobilinogen NEG (NEG) Urine Leukocyte Esterase SMALL (NEG) Urine WBC (Auto) >30 /hpf (0-5) Urine RBC (Auto) 0-4 /hpf (0-4) Urine Hyaline Casts (Auto) 0 /lpf (0-5) Urine Epithelial Cells (Auto) 0-5 /lpf (0-5) Urine Bacteria (Auto) 3+ (NEG) Urine Random Creatinine 46.0 mg/dl Urine Random Sodium 39 mEq/L Eosinophils % (Manual) 14.7 % Basophils % (Manual) 10.1 % (0-2) Blast Cells % 3.7 % Eosinophils # (Manual) 0.94 K/uL (0-0.5) Basophils # (Manual) 0.64 K/uL (0-0.2) Blast Cells # 0.24 K/uL (0-0) Anisocytosis PRESENT Estimated Average Glucose 169 mg/dl Hemoglobin A1c 7.5 % (4.5-5.6) White Blood Count 3.64 K/uL (4.8-10.8) Red Blood Count 3.61 M/uL (4.7-6.1) Hemoglobin 12.1 g/dL (14.0-18.0) Hematocrit 35.6 % (42-52) Mean Corpuscular Volume 98.6 fL (80-100) Mean Corpuscular Hemoglobin 33.5 pg (25-34) Mean Corpuscular Hemoglobin Concent 34.0 g/dl (32-36) Platelet Count 224 K/uL (130-400) Mean Platelet Volume 12.4 fL (7.4-10.4) RDW Standard Deviation 64.1 fL (36.4-46.3) RDW Coefficient of Variation 18.9 % (11.5-14.5) Nucleated RBC Absolute Count (auto) 0.06 K/uL (0-0) Neutrophils % (Manual) 48.6 % Lymphocytes % (Manual) 16.8 % Monocytes % (Manual) 31.9 % Myelocytes % 2.7 % Nucleated Red Blood Cells % 1.6 % Neutrophils # (Manual) 1.77 K/uL (1.4-6.5) Total Absolute Neutrophils 1.77 K/uL (1.4-6.5) Lymphocytes # (Manual) 0.61 K/uL (1.2-3.4) Total Absolute Lymphocytes 0.61 K/uL (1.2-3.4) Monocytes # (Manual) 1.16 K/uL (0.11-0.59) Myelocytes # 0.10 K/uL (0-0) Giant Platelets 2+ Anion Gap 8.0 mmol/L (3-11) Est Creatinine Clear Calc Drug Dose 23.0 ml/min Estimated GFR () 23.6 Estimated GFR (Non- 20.4 BUN/Creatinine Ratio 8.2 (10-20) Lactic Acid Level 3.0 mmol/L (0.4-2.0) Calcium Level 7.8 mg/dl (8.5-10.1) Magnesium Level 1.9 mg/dl (1.8-2.4) Bedside Glucose 195 mg/dl (70-99) Date/Time Source Procedure Growth Status 02/11/17 07:58 Blood Blood Culture Pending Received 02/09/17 11:25 Urine , Clean Catch Urine Culture - Preliminary Providencia Stuartii Resulted Last 24 Hours Test 02/10/17 11:10 02/10/17 15:50 02/10/17 16:50 02/10/17 20:31 Bedside Glucose 143 mg/dl 138 mg/dl 177 mg/dl 223 mg/dl Test 02/11/17 07:58 02/11/17 08:14 White Blood Count 3.64 K/uL Red Blood Count 3.61 M/uL Hemoglobin 12.1 g/dL Hematocrit 35.6 % Mean Corpuscular Volume 98.6 fL Mean Corpuscular Hemoglobin 33.5 pg Mean Corpuscular Hemoglobin Concent 34.0 g/dl Platelet Count 224 K/uL Mean Platelet Volume 12.4 fL RDW Standard Deviation 64.1 fL RDW Coefficient of Variation 18.9 % Nucleated RBC Absolute Count (auto) 0.06 K/uL Neutrophils % (Manual) 48.6 % Lymphocytes % (Manual) 16.8 % Monocytes % (Manual) 31.9 % Myelocytes % 2.7 % Nucleated Red Blood Cells % 1.6 % Neutrophils # (Manual) 1.77 K/uL Total Absolute Neutrophils 1.77 K/uL Lymphocytes # (Manual) 0.61 K/uL Total Absolute Lymphocytes 0.61 K/uL Monocytes # (Manual) 1.16 K/uL Myelocytes # 0.10 K/uL Giant Platelets 2+ Sodium Level 138 mmol/L Potassium Level 5.5 mmol/L Chloride Level 108 mmol/L Carbon Dioxide Level 22 mmol/L Anion Gap 8.0 mmol/L Blood Urea Nitrogen 24 mg/dl Creatinine 2.90 mg/dl Est Creatinine Clear Calc Drug Dose 23.0 ml/min Estimated GFR () 23.6 Estimated GFR (Non- 20.4 BUN/Creatinine Ratio 8.2 Random Glucose 196 mg/dl Lactic Acid Level 3.0 mmol/L Calcium Level 7.8 mg/dl Magnesium Level 1.9 mg/dl Bedside Glucose 195 mg/dl Date/Time Source Procedure Growth Status 02/11/17 07:58 Blood Blood Culture Pending Received 02/11/17 07:44 Blood Blood Culture Pending Received Assessment & Plan 76 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 Overnight Vancomycin was started for empiric coverage of GPC in 1/2 blood cultures. He developed redness to the skin with a reported rash with infusion, which was stopped. The patient was given hydrocortisone and Benadryl. He was notable lethargic, tachycardic, febrile and hypotensive and was unable to swallow pills overnight 2/2 confusion. This morning rectal temp reveals 103F with BP 102/91, P100, R20, 96 % on 5L with oxymask. Tylenol was given and efforts were taken to reduce temp with ice, misting and a fan. On exam he appears lucid and is not complaining of a cough or any discomfort. He is tachycardic with a regular rhythm, clear lungs to auscultation, notably diaphoretic with erythematous skin with no rash or wheals seen on his skin. Erythema extends down his anterior chest to his knees. Urine culture is growing Provendencia and blood cultures have not speciated. Repeat BCx were drawn, and CXR reveals atelectasis on the L base. Lactate was 3.0 and creatinine was worse this morning. IVF were running at 125mls/hr overnight and initially were stopped until respiratory status could be assessed. Small 500mls bolus given over 4 hours and will trend lactate. Will order CBC with diff to ensure no DRESS. Working diagnosis includes but is not limited to drug reaction vs evolving sepsis vs febrile non-hemolytic transfusion reaction 2/2 use on non-LR blood given on admission. ID consult placed for assistance. Antibiotics were broadened to Daptomycin, Aztreonam ( amox allergy) and Levaquin (for pulmonary coverage of GPCs--h/o MRSA-- and double GN coverage as pt lives in a senior living and at higher risk for pseudomonas) 1. Sepsis in setting of neutropenic fever vs drug reaction vs transfusion reaction-poss sources include UTI vs bacteremia, administration ov vancomycin ( most likely with immediate reaction during transfusion of the medication) vs transfusion reaction (pt has h/o MDS vs AML and was given eta-muxriovjr-gbxwakd blood transfusion on 02/09. Abx spectrum broadened as above. ID consult placed to assist with sepsis rule out vs abx reaction. Of note, pt does have chronic hypotension as below. 2. Hypoxia-new onset overnight-etiologies include but not limited to exhaustion from febrile state (cerebral palsy patient notably confused and lethargic overnight, desaturation to 80% overnight with improvement on oxymask ( facemask). CXR reveals atelectasis vs HAP. Abx as above and cont oxygen support. Starting to improve clinically. 3. Anemia-likely 2/2 underlying hematologic process which is still under investigation. Improved to . Hematology consult-decided against bone marrow biopsy in house. 4. JULITA-received IVF in ER and urine studies were ordered. Improved today after volume given. UTI present, empirically placed on Rocephin pending cultures. With broadening of abx to include aztreonam, ceftriaxone was discontinued. Of note, pat stated he had fever a few days back and he has urinary incontinence at baseline. Slightly worse in setting of poss sepsis-IVF overnight with additional 500 cc NS ordered. 5. Hypotension-chronic, was recently admitted in December for syncope thought 2/2 OH. As he was on midodrine, his BP went up and despite stopping this, BP remained elevated. He was sent out on Norvasc which is not present on his list of meds currently. BP 90s systolic at this time. No antihypertensives at this time. 6. Pressure ulcer(s) of the sacrum, stage II, POA-apprec wound care assistance with management 7. DMII-cont home Lantus 10 Units qHS and ISS/carb coverage, controlled. Adjust per protocol while NPO 6. h/o MRSA in sputum-contact precautions DVT proph-SCDs DNR-confirmed with patient and documented discussion with medical personnel at [facility]. Dispo-to telemetry DO Tatianna Osuna Hospitalist Consultants: ID Hematology Current Inpatient Medications: Current Inpatient Medications Medications (Trade) Dose Ordered Sig/Lucille Route Start Time Stop Time Status Last Admin Dose Admin Acetaminophen (Tylenol Tab) 650 mg Q4H PRN PO 02/09/17 10:15 03/11/17 10:14 Ondansetron HCl (Zofran Inj) 4 mg Q6H PRN IV 02/09/17 10:15 03/11/17 10:14 02/10/17 21:23 4 MG Insulin Glargine (Lantus Solostar Pen) 10 units HS SC 02/09/17 21:00 03/11/17 20:59 02/10/17 20:42 10 UNITS Insulin Aspart (novoLOG ASPART) SLIDING SCALE If C... ACHS SC 02/09/17 16:15 03/11/17 16:14 02/11/17 09:08 1 UNITS Glucose (Glucose 40% Gel) 15-30 GRAMS 15 GRAMS... UD PRN PO 02/09/17 10:15 03/11/17 10:14 Glucose (Glucose Chew Tab) 4-8 Tablets 4 Tabl... UD PRN PO 02/09/17 10:15 03/11/17 10:14 Dextrose (Dextrose 50% 50ML Syringe) 25-50ML OF 50% DW IV FOR... UD PRN IV 02/09/17 10:15 03/11/17 10:14 Glucagon (Glucagon Inj) 1 mg UD PRN SQ 02/09/17 10:15 03/11/17 10:14 Aspirin (Ecotrin Tab) 81 mg DAILY PO 02/10/17 09:00 03/12/17 08:59 02/11/17 08:28 81 MG Gabapentin (Neurontin Cap) 100 mg DAILY@1200 PO 02/09/17 13:00 03/11/17 12:59 02/10/17 12:08 100 MG Gabapentin (Neurontin Cap) 200 mg BID PO 02/09/17 21:00 03/11/17 20:59 02/11/17 08:28 200 MG Albuterol/ Ipratropium (Duoneb) 3 ml Q4H PRN INH 02/09/17 10:30 03/11/17 10:29 Levothyroxine Sodium (Synthroid Tab) 50 mcg DAILYBB PO 02/10/17 06:00 03/12/17 05:59 02/10/17 05:56 50 MCG Ranitidine HCl (zANTac TAB) 150 mg QAM PO 02/10/17 09:00 03/12/17 08:59 02/11/17 08:28 150 MG Terbinafine HCl (Lamisil At Cream) 1 appl BID EXT 02/09/17 21:00 02/13/17 20:59 02/11/17 08:27 1 APPL Zolpidem Tartrate (Ambien Tab) 5 mg HS PRN PO 02/09/17 10:30 03/11/17 10:29 02/10/17 21:23 5 MG Pantoprazole Sodium (Protonix Tab) 40 mg QAM PO 02/10/17 09:00 03/12/17 08:59 02/11/17 08:28 40 MG Polyethylene (Miralax Powder Packet) 17 gm DAILY PO 02/10/17 09:00 03/12/17 08:59 02/10/17 07:45 17 GM Tizanidine HCl (Zanaflex Tab) 4 mg TID PO 02/09/17 14:00 03/11/17 13:59 02/11/17 08:28 4 MG Miscellaneous Information (Order Awaiting Action) 1 ea QS N/A 02/09/17 16:00 03/11/17 15:59 Oxycodone HCl (Roxicodone Immediate Rel Tab) 5 mg Q6 PRN PO 02/09/17 10:30 02/23/17 10:29 02/10/17 21:02 5 MG Daptomycin (Consult) 1 ea UD PRN N/A 02/11/17 07:45 03/13/17 07:44 Sodium Chloride 500 ml @ 125 mls/hr Q4H IV 02/11/17 09:00 02/11/17 12:59 Aztreonam (Consult) 1 ea UD PRN N/A 02/11/17 09:15 03/13/17 09:14 Aztreonam 2000 mg/ Dextrose 110 ml @ 110 mls/hr NOW ONCE IV 02/11/17 09:15 02/11/17 10:14 Miscellaneous Information (Nursing Verbal Med Order) 1 ea ONE ONCE N/A 02/11/17 09:15 02/11/17 09:16 UNV Aztreonam 1000 mg/ Dextrose 110 ml @ 110 mls/hr Q8H IV 02/11/17 18:00 02/21/17 17:59 Levofloxacin (Consult) 1 ea UD PRN N/A 02/11/17 09:15 03/13/17 09:14 Levofloxacin 750 mg/Prmx 150 ml @ 100 mls/hr Q48H IV 02/11/17 10:00 02/18/17 09:59
[2017-02-11] MEDS: LEVOFLOXACIN 750MG / D5W IV SCH (10:51)
[2017-02-11] MEDS ORDERED: LIDOCAINE HCL 2% JELLY 30 ML TUBE EXT ONE ×2 (10:52→11:51)
[2017-02-11] MEDS ORDERED: SODIUM CHLORIDE 0.9% 500ML 500 ML IV ONE (11:15)
[2017-02-11] MEDS ORDERED: INSULIN ASPART 100 UNITS/ML 3 ML PEN SC SCH (12:00)
[2017-02-11] MEDS ORDERED: MoRPHine SULFATE 2 MG/ML CARP ONE (12:49)
--- NOTE | 2017-02-11 13:18 | Urology Consultation ---
History General Date of Service: Feb 11, 2017. Chief Complaint: AUR, Acute Renal Failure, Urethral Stricture Primary Care Physician: Geo Varela M.D. Pt seen a urologist before?: Yes If yes, why?: Neurogenic Bladder History of Present Illness Patient admitted with sepsis, worsening with fevers. Transferred to telemetry for closer monitoring. Poor urine output and worsening renal function. History of neurogenic bladder with incontinence. Multiple medical issues. Nursing attempted catheterization x2 after no void since AM. Unable to pass distal urethra. No urine output. Patient having delirium issues as well. Unable to give consent for catheter placement. Discussed patient with via telephone. Catheter was able to be placed after meatal/distal urethra dilation with [place] bedside. See plan for procedure note. Clear yellow urine received via 14 montserratian silicon catheter. Laboratory Labs were reviewed and are within normal limits unless listed below. Labs are available in the chart and at [facility] Problem List Medical Problems: (1) Altered mental status Status: Acute (2) Elevated serum creatinine Status: Acute (3) Hypotension Status: Acute (4) Hypotension Status: Acute (5) Pneumonia Status: Acute (6) Sepsis Status: Acute (7) Severe anemia Status: Acute (8) Tachycardia Status: Acute (9) TIA (transient ischemic attack) Status: Acute Past History CVA/TIA/stroke, diabetes, GERD, other Past Surgical History: spinal surgery Family History No pertinent family history Social History Hx Tobacco Use In Past Year?: No Smoking: non-smoker Marital status: Housing status: [facility] Occupation status: disabled Immunizations History of Influenza Vaccine: Unknown History of Tetanus Vaccine?: Unknown History of Pneumococcal: Unknown History of Hepatitis B Vaccine: Unknown History of MDRO Yes Type of MDRO: MRSA Allergies Coded Allergies: Vancomycin (Verified Allergy, Severe, RASH, 02/11/17) Amoxicillin (Verified Allergy, Mild, RASH HEAD TO TOE, 01/19/17) Head to Toe Rash Clavulanic Acid (Verified Allergy, Mild, RASH HEAD TO TOE, 01/19/17) Head to Toe Rash Medications Home Medications: Home Meds and Scripts Medications Dose Route/Sig Max Daily Dose Days Date Category Dose Instructions Oxygen Gas 2-4 Liters NA PRN 02/09/17 Reported *TITRATE TO KEEP O2 ABOVE 90%* Lamisil At Athletes Foot (Terbinafine Hcl (Topical)) 1 % Cre 1 Appln TOP BID 02/09/17 Reported APPLY TO BILATERAL INNER ANKLES. STARTED 01/23/17, TO USE FOR 21 DAYS Amlodipine Besylate 5 Mg Tab 10 Mg PO DAILY 30 01/23/17 Rx Oxycodone HCl 5 Mg Tab 5 Mg PO Q6H PRN 01/23/17 Rx Lantus (Insulin Glargine) 100 Unit/Ml Inj 10 Units SQ HS 01/19/17 Reported Novolog (Insulin Aspart) 100 Units/Ml Inj 6 Units SQ TIDM 01/19/17 Reported HOLD IF EATS <25% OF MEALS Biofreeze (Menthol (Topical Analgesic)) 4 % Gel 1 Appln TOP DAILY PRN 01/19/17 Reported FOR DISCOMFORT X 15 MIN. ADMINISTER PRIOR TO ROM EXERCISES Men-Phor (Camphor & Menthol) 1 Lot Lot 1 Appln TOP QID PRN 01/19/17 Reported APPLY TO BODY Icy Hot Extra Strength (Menthol-Methyl Salicylate (Juliette) 1 Cre Cre 1 Appln TOP PRN 01/19/17 Reported APPLY TO RIGHT UPPER ARM & ELBOW PRN Ketoconazole (Ketoconazole (Topical)) 2 % Sha 1 Appln TOP 2XWK 11/25/16 Reported MONDAY & MONDAY Ambien (Zolpidem Tartrate) 5 Mg Tab 5 Mg PO HS PRN 11/25/16 Reported Tylenol (Acetaminophen) 325 Mg Tab 650 Mg PO Q4 PRN 11/25/16 Reported TEMP >100 , MILD-SEVERE Duoneb (Ipratropium-Albuterol) 3 Ml Nebu 1 Treatment INH Q4H PRN 11/25/16 Reported Easton Cough Drops (Menthol (Mouth-Throat)) 7 Mg Jossie 1 Drop PO Q2 PRN 11/25/16 Reported Zofran (Ondansetron HCl) 4 Mg Tab 4 Mg PO QAM PRN 11/25/16 Reported Zanaflex (Tizanidine HCl) 4 Mg Cap 4 Mg PO TID 11/25/16 Reported Zantac (Ranitidine HCl) 150 Mg Tab 150 Mg PO QAM 11/25/16 Reported Miralax (Polyethylene Glycol 3350) 1 Pow 17 Gm PO DAILY 11/25/16 Reported Levothyroxine Sodium 50 Mcg Tab 50 Mcg PO DAILY 11/25/16 Reported Prevacid (Lansoprazole) 15 Mg Capcr 15 Mg PO DAILY 11/25/16 Reported Neurontin (Gabapentin) 100 Mg Cap 100 Mg PO NOON 11/25/16 Reported Neurontin (Gabapentin) 100 Mg Cap 200 Mg PO AMPM 11/25/16 Reported Aspirin 81 Mg Tab 81 Mg PO DAILY 11/25/16 Reported Inpatient Medications: Current Inpatient Medications Medications (Trade) Dose Ordered Sig/Lucille Route Start Time Stop Time Status Last Admin Dose Admin Acetaminophen (Tylenol Tab) 650 mg Q4H PRN PO 02/09/17 10:15 03/11/17 10:14 Ondansetron HCl (Zofran Inj) 4 mg Q6H PRN IV 02/09/17 10:15 03/11/17 10:14 02/10/17 21:23 4 MG Insulin Glargine (Lantus Solostar Pen) 10 units HS SC 02/09/17 21:00 03/11/17 20:59 02/10/17 20:42 10 UNITS Glucose (Glucose 40% Gel) 15-30 GRAMS 15 GRAMS... UD PRN PO 02/09/17 10:15 03/11/17 10:14 Glucose (Glucose Chew Tab) 4-8 Tablets 4 Tabl... UD PRN PO 02/09/17 10:15 03/11/17 10:14 Dextrose (Dextrose 50% 50ML Syringe) 25-50ML OF 50% DW IV FOR... UD PRN IV 02/09/17 10:15 03/11/17 10:14 Glucagon (Glucagon Inj) 1 mg UD PRN SQ 02/09/17 10:15 03/11/17 10:14 Aspirin (Ecotrin Tab) 81 mg DAILY PO 02/10/17 09:00 03/12/17 08:59 02/11/17 08:28 81 MG Gabapentin (Neurontin Cap) 100 mg DAILY@1200 PO 02/09/17 13:00 03/11/17 12:59 02/10/17 12:08 100 MG Gabapentin (Neurontin Cap) 200 mg BID PO 02/09/17 21:00 03/11/17 20:59 02/11/17 08:28 200 MG Albuterol/ Ipratropium (Duoneb) 3 ml Q4H PRN INH 02/09/17 10:30 03/11/17 10:29 Levothyroxine Sodium (Synthroid Tab) 50 mcg DAILYBB PO 02/10/17 06:00 03/12/17 05:59 02/10/17 05:56 50 MCG Ranitidine HCl (zANTac TAB) 150 mg QAM PO 02/10/17 09:00 03/12/17 08:59 02/11/17 08:28 150 MG Terbinafine HCl (Lamisil At Cream) 1 appl BID EXT 02/09/17 21:00 02/13/17 20:59 02/11/17 08:27 1 APPL Zolpidem Tartrate (Ambien Tab) 5 mg HS PRN PO 02/09/17 10:30 03/11/17 10:29 02/10/17 21:23 5 MG Pantoprazole Sodium (Protonix Tab) 40 mg QAM PO 02/10/17 09:00 03/12/17 08:59 02/11/17 08:28 40 MG Polyethylene (Miralax Powder Packet) 17 gm DAILY PO 02/10/17 09:00 03/12/17 08:59 02/10/17 07:45 17 GM Tizanidine HCl (Zanaflex Tab) 4 mg TID PO 02/09/17 14:00 03/11/17 13:59 02/11/17 08:28 4 MG Miscellaneous Information (Order Awaiting Action) 1 ea QS N/A 02/09/17 16:00 03/11/17 15:59 Oxycodone HCl (Roxicodone Immediate Rel Tab) 5 mg Q6 PRN PO 02/09/17 10:30 02/23/17 10:29 02/10/17 21:02 5 MG Daptomycin (Consult) 1 ea UD PRN N/A 02/11/17 07:45 03/13/17 07:44 Aztreonam (Consult) 1 ea UD PRN N/A 02/11/17 09:15 03/13/17 09:14 Aztreonam 1000 mg/ Dextrose 110 ml @ 110 mls/hr Q8H IV 02/11/17 18:00 02/21/17 17:59 Levofloxacin (Consult) 1 ea UD PRN N/A 02/11/17 09:15 03/13/17 09:14 Levofloxacin 750 mg/Prmx 150 ml @ 100 mls/hr Q48H IV 02/11/17 10:00 02/18/17 09:59 02/11/17 10:51 100 MLS/HR Insulin Aspart (novoLOG ASPART) SLIDING SCALE If C... Q6 SC 02/11/17 12:00 03/13/17 11:59 02/11/17 12:41 2 UNITS Review of Systems Review of Systems Additional Comments: Poor historian due to acute illness and delirium, unable to obtain. Please see HPI for pertinent positives or negatives. Physical Exam Vital Signs: Vital Signs Past 12 Hours Date Time Temp Pulse Resp B/P (MAP) Pulse Ox O2 Delivery O2 Flow Rate FiO2 02/11/17 12:00 Nasal Cannula 2.0 02/11/17 11:37 36.6 59 90/56 (67) 02/11/17 11:23 36.9 59 21 92/62 (72) 99 Oxymask 6.0 02/11/17 10:28 72/46 (55) 02/11/17 10:27 64 76/50 (59) 02/11/17 10:18 64/48 (53) 02/11/17 10:14 37.9 02/11/17 09:57 74 78/56 (63) 02/11/17 09:37 37.1 83 28 72/49 (57) 97 5.0 02/11/17 09:32 38.5 94 22 5 5.0 02/11/17 09:05 38.5 02/11/17 08:23 5 Oxymask 02/11/17 08:13 39.3 02/11/17 07:27 37.4 107 22 94/67 (76) 93 Oxymask 5.0 02/11/17 07:27 38.7 100 20 102/71 (81) 96 3.0 02/11/17 01:13 37.7 123 14 91/59 (70) 94 Oxymask 4.0 Physical Exam: General Appearance: + mild distress, + obese ENT: normal ENT inspection Neck: no JVD Respiratory/Chest: + respiratory distress Cardiovascular: + tachycardia Genitourinary - Male: Urethral Meatus: size (meatal stricture/bxo), hypospadias Testes: normal testes Scrotum: normal scrotum Additional Comments: Strictured meatus/distal urethra Assessment & Plan Assessment & Plan 1. AUR 2. Sepsis with Delirium 3. Acute Renal Failure 4. Urethral and Meatal stricture. Discussed case with primary team and patient's . 14 fr Silicon catheter placed bedside after dilation with [place] sounds. Local lidocaine jelly used with 1 x dose of 2mg Morphine for pain control. Patient was prepped and draped in standard fashion and 12 and 14 fr [place] sounds were used to dilate the strictured segment. With dilation complete catheter was placed with return of clear yellow urine. Patient tolerated the procedure. Mild meatal bleed. No hematuria. Patient will need ludwig for 1-2 weeks with drainage and monitoring. Will likely need cystoscopy and possible RUG to assess strictured segment. Approx 8 mm segment of stricture at distal urethra. Will plan for follow up and monitoring. Continue critical fluid monitoring and management.
[2017-02-11 13:51] LABS: CALCIUM 7.4 mg/dl (8.5-10.1); CREATININE 3.2 mg/dl (0.60-1.40); POTASSIUM 5.7 mmol/L (3.5-5.1)
[2017-02-11 14:12] LABS: COMPLETE YES; EOSINOPHIL % 5.4 %; GIANT PLATELETS 2+; HEMATOCRIT 35.4 % (42-52); LYMPH ABS # 0.91 K/uL (1.2-3.4); LYMPHOCYTE % 27.7 %; MEAN CELL VOLUME 98.6 fL (80-100); MEAN CORPUSCULAR HEMOGLOBIN 32.3 pg (25-34); MEAN CORPUSCULAR HGB CONC 32.8 g/dl (32-36); MEAN PLATELET VOLUME 12.4 fL (7.4-10.4); MYELOCYTE % 0.9 %; NEUTROPHILS % 31.3 %; PLATELET COUNT 198 K/uL (130-400); RED BLOOD COUNT 3.59 M/uL (4.7-6.1); WHITE BLOOD COUNT 3.29 K/uL (4.8-10.8)
[2017-02-11] MEDS: AZTREONAM IV 1,000 MG in DEXTROSE 5% 100ML IV SCH (16:45)
[2017-02-11 20:10] LABS: BUN/CREATININE RATIO 9.4 (10-20); CALCIUM 7.5 mg/dl (8.5-10.1)
[2017-02-11] MEDS: OXYCODONE HCL IR 5 MG TAB (IMMEDIATE RELEASE) PO PRN (20:12)
[2017-02-11] MEDS: INSULIN GLARGINE SOLOSTAR 100 UNITS/ML 3 ML PEN SC SCH (20:12)
[2017-02-11 21:22] LABS: POTASSIUM 4.7 mmol/L (3.5-5.1)
[2017-02-12] VITALS (14 sets, daily range): BP systolic 85–112; BP diastolic 52–66; PULSE 56–78; TEMP 36.4–36.5; O2SAT 94–99
[2017-02-12] MEDS: AZTREONAM IV 1,000 MG in DEXTROSE 5% 100ML IV SCH ×3 (01:15→16:34)
[2017-02-12] MEDS: LEVOTHYROXINE 50 MCG TAB PO SCH (05:49)
[2017-02-12 07:04] LABS: CALCIUM 7.3 mg/dl (8.5-10.1); CREATININE 2.8 mg/dl (0.60-1.40)
[2017-02-12 07:46] LABS: HEMATOCRIT 31.1 % (42-52); MEAN CELL VOLUME 97.8 fL (80-100); MEAN CORPUSCULAR HGB CONC 33.8 g/dl (32-36); MEAN PLATELET VOLUME 12.1 fL (7.4-10.4); PLATELET COUNT 203 K/uL (130-400); RED BLOOD COUNT 3.18 M/uL (4.7-6.1); WHITE BLOOD COUNT 7.51 K/uL (4.8-10.8)
[2017-02-12 07:48] LABS: ECHINOCYTES 1+
[2017-02-12 08:02] LABS: COMPLETE YES; EOSINOPHIL % 13.2 %; LYMPH ABS # 1.19 K/uL (1.2-3.4); LYMPHOCYTE % 15.8 %; MYELOCYTE % 0.9 %; NEUTROPHILS % 11.4 %
[2017-02-12] MEDS: ASPIRIN 81 MG ECTAB PO SCH (08:13)
[2017-02-12] MEDS: RANITIDINE HCL 150 MG TAB PO SCH (08:13)
[2017-02-12] MEDS: GABAPENTIN 100 MG CAP PO SCH ×3 (08:14→20:36)
[2017-02-12] MEDS: PANTOprazole SOD 40 MG TAB PO SCH (08:14)
[2017-02-12] MEDS: POLYETHYLENE (MIRALAX) 17 GM PACK PO SCH (08:15)
[2017-02-12] MEDS: TERBINAFINE CR 30 GM TUBE EXT SCH ×2 (08:15→20:35)
[2017-02-12] MEDS: INSULIN ASPART 100 UNITS/ML 3 ML PEN SC SCH ×4 (08:18→20:39)
--- NOTE | 2017-02-12 15:15 | Medical Consult ---
Consultation Date of Consultation: Feb 12, 2017. Attending Physician: Izzy Brady DO Reason for Consultation: Sepsis versus drug reaction, appreciate help with antibiotics History of Present Illness 76-year-old male with history of myelodysplastic syndrome versus developing acute myelogenous leukemia was admitted with 1-2 day history of acute change in mental status/ encephalopathy with fever and chills. patient received transfusion prior to onset of fever.He was brought to the hospital where he is found to have evidence of infection with positive urine culture for Providencia , and now has 1 set of blood cultures positive for coagulase negative Staph. Patient currently being treated with broad-spectrum IV antibiotics. Follow-up blood cultures are negative to date. Chest x-ray, read by me, shows fluid overload, cannot rule out developing infiltrate. Past Medical/Surgical History Medical Problems: (1) Altered mental status Status: Acute (2) Elevated serum creatinine Status: Acute (3) Hypotension Status: Acute (4) Hypotension Status: Acute (5) Pneumonia Status: Acute (6) Sepsis Status: Acute (7) Severe anemia Status: Acute (8) Tachycardia Status: Acute (9) TIA (transient ischemic attack) Status: Acute Family History No pertinent family history Social History Smoking Status: Former Smoker (cigars, wuit 1999) Smokeless Tobacco Use: No Alcohol Use: none Drug Use: none Marital Status: Housing Status: fpc Occupation Status: disabled Allergies Coded Allergies: Vancomycin (Verified Allergy, Severe, RASH, 02/11/17) Amoxicillin (Verified Allergy, Mild, RASH HEAD TO TOE, 01/19/17) Head to Toe Rash Clavulanic Acid (Verified Allergy, Mild, RASH HEAD TO TOE, 01/19/17) Head to Toe Rash Current Inpatient Medications Current Inpatient Medications Medications (Trade) Dose Ordered Sig/Lucille Route Start Time Stop Time Status Last Admin Dose Admin Acetaminophen (Tylenol Tab) 650 mg Q4H PRN PO 02/09/17 10:15 03/11/17 10:14 Ondansetron HCl (Zofran Inj) 4 mg Q6H PRN IV 02/09/17 10:15 03/11/17 10:14 02/10/17 21:23 4 MG Insulin Glargine (Lantus Solostar Pen) 10 units HS SC 02/09/17 21:00 03/11/17 20:59 02/11/17 20:12 10 UNITS Glucose (Glucose 40% Gel) 15-30 GRAMS 15 GRAMS... UD PRN PO 02/09/17 10:15 03/11/17 10:14 Glucose (Glucose Chew Tab) 4-8 Tablets 4 Tabl... UD PRN PO 02/09/17 10:15 03/11/17 10:14 Dextrose (Dextrose 50% 50ML Syringe) 25-50ML OF 50% DW IV FOR... UD PRN IV 02/09/17 10:15 03/11/17 10:14 Glucagon (Glucagon Inj) 1 mg UD PRN SQ 02/09/17 10:15 03/11/17 10:14 Aspirin (Ecotrin Tab) 81 mg DAILY PO 02/10/17 09:00 03/12/17 08:59 02/12/17 08:13 81 MG Gabapentin (Neurontin Cap) 100 mg DAILY@1200 PO 02/09/17 13:00 03/11/17 12:59 02/12/17 11:56 100 MG Gabapentin (Neurontin Cap) 200 mg BID PO 02/09/17 21:00 03/11/17 20:59 02/12/17 08:14 200 MG Albuterol/ Ipratropium (Duoneb) 3 ml Q4H PRN INH 02/09/17 10:30 03/11/17 10:29 Levothyroxine Sodium (Synthroid Tab) 50 mcg DAILYBB PO 02/10/17 06:00 03/12/17 05:59 02/12/17 05:49 50 MCG Ranitidine HCl (zANTac TAB) 150 mg QAM PO 02/10/17 09:00 03/12/17 08:59 02/12/17 08:13 150 MG Terbinafine HCl (Lamisil At Cream) 1 appl BID EXT 02/09/17 21:00 02/13/17 20:59 02/12/17 08:15 1 APPL Zolpidem Tartrate (Ambien Tab) 5 mg HS PRN PO 02/09/17 10:30 03/11/17 10:29 02/10/17 21:23 5 MG Pantoprazole Sodium (Protonix Tab) 40 mg QAM PO 02/10/17 09:00 03/12/17 08:59 02/12/17 08:14 40 MG Polyethylene (Miralax Powder Packet) 17 gm DAILY PO 02/10/17 09:00 03/12/17 08:59 02/12/17 08:15 17 GM Tizanidine HCl (Zanaflex Tab) 4 mg TID PO 02/09/17 14:00 03/11/17 13:59 02/12/17 14:01 4 MG Miscellaneous Information (Order Awaiting Action) 1 ea QS N/A 02/09/17 16:00 03/11/17 15:59 Oxycodone HCl (Roxicodone Immediate Rel Tab) 5 mg Q6 PRN PO 02/09/17 10:30 02/23/17 10:29 02/11/17 20:12 5 MG Daptomycin (Consult) 1 ea UD PRN N/A 02/11/17 07:45 03/13/17 07:44 Aztreonam (Consult) 1 ea UD PRN N/A 02/11/17 09:15 03/13/17 09:14 Aztreonam 1000 mg/ Dextrose 110 ml @ 110 mls/hr Q8H IV 02/11/17 18:00 02/21/17 17:59 02/12/17 09:06 110 MLS/HR Levofloxacin (Consult) 1 ea UD PRN N/A 02/11/17 09:15 03/13/17 09:14 Levofloxacin 750 mg/Prmx 150 ml @ 100 mls/hr Q48H IV 02/11/17 10:00 02/18/17 09:59 02/11/17 10:51 100 MLS/HR Daptomycin 550 mg/ Sodium Chloride 61 ml @ 120 mls/hr Q2D@0800 IV 02/13/17 08:00 02/25/17 07:59 Insulin Aspart (novoLOG ASPART) SLIDING SCALE If C... ACHS SC 02/11/17 16:15 03/13/17 16:14 02/12/17 11:56 6 UNITS Review of Systems All systems were reviewed and are negative except as per HPI Physical Exam Date Time Temp Pulse Resp B/P (MAP) Pulse Ox O2 Delivery O2 Flow Rate FiO2 02/12/17 12:00 Room Air 02/12/17 11:43 36.5 74 20 86/56 (66) 96 Room Air 02/12/17 08:00 Nasal Cannula 3.0 02/12/17 07:35 36.5 71 22 98/65 (76) 99 Nasal Cannula 2.0 02/12/17 06:01 78 100/66 (77) 02/12/17 04:00 Nasal Cannula 3.0 02/12/17 03:42 36.4 60 20 91/58 (69) 96 Nasal Cannula 2.0 02/12/17 03:16 60 105/65 (78) 02/12/17 02:16 56 98/62 (74) 02/12/17 01:46 65 103/66 (78) 02/12/17 01:16 61 95/60 (72) 02/12/17 01:03 57 85/53 (64) 02/12/17 00:00 Nasal Cannula 3.0 02/11/17 23:49 36.5 60 19 101/68 (79) 92 Nasal Cannula 3.0 02/11/17 23:45 85/51 (62) 02/11/17 23:32 58 84/48 (60) 02/11/17 22:26 65 78/54 (62) 02/11/17 20:00 Nasal Cannula 3.0 02/11/17 16:45 79 94 Nasal Cannula 3.0 02/11/17 16:00 Nasal Cannula 3.0 General Appearance: WD/WN, no apparent distress Head: normocephalic, atraumatic Eyes: normal inspection, EOMI, sclerae normal ENT: normal ENT inspection, pharynx normal Neck: supple, no adenopathy, thyroid normal, trachea midline Respiratory/Chest: chest non-tender, lungs clear, normal breath sounds, no respiratory distress Cardiovascular: regular rate, rhythm, no gallop, no murmur Abdomen/GI: normal bowel sounds, non tender, soft, no organomegaly Back: normal inspection, no CVA tenderness Extremities/Musculoskelatal: normal inspection, no calf tenderness Neurologic/Psych: alert, oriented x 3 Skin: normal color, warm/dry, no rash Lymphatic: no adenopathy Laboratory Results RUN DATE: 02/11/[address] [facility] LAB PAGE 1 RUN TIME: 1118 Specimen Inquiry PATIENT: DELMY DAO LOC: Charles U # : [id number] AGE/SX: 76/M ROOM: E217 REG : 02/09/[address]: Izzy Brady DO : 1940 BED: 1 DIS : STATUS: ADM IN TLOC: SPEC #: [id number] TAYLOR: 02/09/17 STATUS: RES REQ #: [id number] RECD: 02/09/[address]: Izzy Brady DO SOURCE: BLOOD ENTR: 02/09/17-2 [facility] DR: Jackie Castaneda MD [facility] Geo Varela M.D., Theodore, M.D. ORDERED: BLOOD CULTURE Procedure Result Verified Site BLD CULT Preliminary 02/11/17-1118 Organism 1 COAG NEG STAPH NOT LUGDUNENSIS SENS NO SENSITIVITY TO FOLLOW One set of two positive. Isolation does not necessarily mean infection. No susceptibility tests performed. Contact microbiology laboratory [phone]) if further studies are indicated. Phoned Positive Blood Culture Gram Stain Report to MESFIN ALVARADO on 02/10/17 At 2012 By [employer]. Results were verbalized back to [facility]. RUN DATE: 02/11/[address] [facility] LAB PAGE 1 RUN TIME: 1022 Specimen Inquiry PATIENT: DELMY DAO LOC: JohnEva U # : [id number] AGE/SX: 76/M ROOM: E217 REG : 02/09/[address]: Izzy Brady DO : 1940 BED: 1 DIS : STATUS: ADM IN TLOC: SPEC #: [id number] TAYLOR: 02/09/17 STATUS: COMP REQ #: [id number] RECD: 02/09/17 [facility] [address]: Izzy Brady DO SOURCE: UR, CC ENTR: 02/09/17 [facility] DR: Jackie Castaneda MD SPDESC: Geo Varela M.D., Theodore, M.D. ORDERED: CULTURE SHAHEEN COMMENTS: Has Specimen Been Obtained/Collected? Y Procedure Result Verified Site URINE CULTURE Final 02/11/17-1022 Organism 1 PROVIDENCIA STUARTII COLONY COUNT >100,000 CFU/ml SENS SENSITIVITY TO FOLLOW 1. PROVIDENCIA STUARTII Target Route Dose RX AB Cost M.I.C. IQ ------ ----- ------ -- ------ -------- - ------ TRIMET/SULFA S <=2/38 AMPICILLIN/SUL I 16 CEFOTAXIME S <=2 CEFTRIAXONE S <=1 CEFEPIME I 16 CEFUROXIME I 16 IMIPENEM I 2 AMIKACIN S <=16 CIPROFLOXACIN S <=1 LEVOFLOXACIN S <=2 ERTAPENEM S <=1 PIP/TAZO S <=16 S = SENSITIVE I = INTERMEDIATE R = RESISTANT Last 24 Hours Test 02/11/17 15:52 02/11/17 19:01 02/11/17 19:10 02/11/17 19:48 Bedside Glucose 152 mg/dl 135 mg/dl Sodium Level 138 mmol/L Potassium Level 4.7 mmol/L Chloride Level 108 mmol/L Carbon Dioxide Level 21 mmol/L Anion Gap 9.0 mmol/L Blood Urea Nitrogen 28 mg/dl Creatinine 3.00 mg/dl Est Creatinine Clear Calc Drug Dose 22.3 ml/min Estimated GFR () 22.7 Estimated GFR (Non- 19.6 BUN/Creatinine Ratio 9.4 Random Glucose 126 mg/dl Calcium Level 7.5 mg/dl Lactic Acid Level 2.0 mmol/L Test 02/12/17 05:20 02/12/17 05:44 02/12/17 06:53 02/12/17 11:13 Sodium Level 138 mmol/L Potassium Level 4.0 mmol/L Chloride Level 109 mmol/L Carbon Dioxide Level 21 mmol/L Anion Gap 8.0 mmol/L Blood Urea Nitrogen 28 mg/dl Creatinine 2.80 mg/dl Est Creatinine Clear Calc Drug Dose 23.9 ml/min Estimated GFR () 24.6 Estimated GFR (Non- 21.3 BUN/Creatinine Ratio 10.0 Random Glucose 96 mg/dl Calcium Level 7.3 mg/dl Magnesium Level 2.0 mg/dl White Blood Count 7.51 K/uL Red Blood Count 3.18 M/uL Hemoglobin 10.5 g/dL Hematocrit 31.1 % Mean Corpuscular Volume 97.8 fL Mean Corpuscular Hemoglobin 33.0 pg Mean Corpuscular Hemoglobin Concent 33.8 g/dl Platelet Count 203 K/uL Mean Platelet Volume 12.1 fL RDW Standard Deviation 63.9 fL RDW Coefficient of Variation 18.6 % Nucleated RBC Absolute Count (auto) 0.02 K/uL Neutrophils % (Manual) 11.4 % Lymphocytes % (Manual) 15.8 % Monocytes % (Manual) 57.8 % Eosinophils % (Manual) 13.2 % Myelocytes % 0.9 % Blast Cells % 0.9 % Nucleated Red Blood Cells % 0.2 % Neutrophils # (Manual) 0.86 K/uL Total Absolute Neutrophils 0.86 K/uL Lymphocytes # (Manual) 1.19 K/uL Total Absolute Lymphocytes 1.19 K/uL Monocytes # (Manual) 4.34 K/uL Eosinophils # (Manual) 0.99 K/uL Myelocytes # 0.07 K/uL Blast Cells # 0.07 K/uL Echinocytes 1+ Bedside Glucose 89 mg/dl 186 mg/dl Patient Name: DELMY DAO Unit Number: [id number] Dictated: 02/11/17804 Transcribed: 02/11/17804 [facility] Printed Date/Time: [~ rep prt dt]/[~ rep prt tm] [~ rep ct labl] - [~ rep ct ivnm] [facility] [place] [address] Dictated: 02/11/17804 Transcribed: 02/11/17804 [facility] Printed Date/Time: [~ rep prt dt]/[~ rep prt tm] [~ rep ct labl] - [~ rep ct ivnm] CHEST ONE VIEW PORTABLE HISTORY: admitted w anemia, now septic, rule out chest disease COMPARISON: Chest 02/09/2017. FINDINGS: The heart is normal in size. Cervical spinal fusion hardware. No pneumothorax. The right lung is clear. There are linear densities within the left lower lobe. This is new from the prior study. No pleural effusions. IMPRESSION: There are new linear densities at the left lower lobe. This favors subsegmental atelectasis. However, a pneumonia could also have a similar appearance. Electronically signed by: Hsaeeb Monteiro M.D. 02/11/2017 8:07 AM Dictated Date/Time: 02/11/2017 8:05 AM The status of this report is Signed. Draft = Not yet reviewed or approved by Radiologist. Signed = Reviewed and approved by Radiologist. <AttendingPhy>Izzy Brady., DO</AttendingPhy> <FamilyPhy>Geo Varela M.D.</FamilyPhy> <PrimaryPhy>Geo Varela M.D.</PrimaryPhy> <UnitNumber> [id number]</UnitNumber> <VisitNumber>[id number]</VisitNumber> <PatientName> FELIBERTODELMY F</PatientName> <DateOfBirth>1940</DateOfBirth> <Location> C.4E</Location> <ServiceDate>02/09/17</ServiceDate> <MNE>ESINDI</MNE> < OrderingPhy>Izzy Brady DO</OrderingPhy> <OrderingPhyMNE>f rep ord dr laboy< /OrderingPhyMNE> <DictatingPhyMNE>f rep dict dr laboy</DictatingPhyMNE> <CCListMNE >f rep ct mne</CCListMNE> <AdmittingPhyMNE>f pt admit dr laboy</AdmittingPhyMNE> < AttendingPhyMNE>f pt attend dr laboy</AttendingPhyMNE> <ConsultingPhyMNE>f pt consult dr laboy</ConsultingPhyMNE> <FamilyPhyMNE>f pt fam dr laboy</FamilyPhyMNE> <OtherPhyMNE>f pt other dr laboy</OtherPhyMNE> < PrimaryPhyMNE>f pt prim care dr laboy</PrimaryPhyMNE> <ReferringPhyMNE>f pt referring dr laboy</ReferringPhyMNE> Assessment & Plan Fever with encephalopathy in a patient with myelodysplastic syndrome, most likely from Providencia urinary tract infection, though cannot rule out early developing pneumonia. Likely coagulase negative Staph in blood culture represents a contaminant, and we are awaiting follow-up blood cultures to confirm. Patient to continue on current regimen pending final culture results. Will follow.
--- NOTE | 2017-02-12 16:28 | Progress Note ---
Medicine Progress Note Date & Time of Visit: Feb 12, 2017 at 10:42. Subjective toleratin PO expresses that he wants to go home to [place] denies any pain or other symptoms at this time Puentes had to be placed by urology yesterday because of a significant urethral stricture. Objective Last 8 Hrs Date Time Temp Pulse Resp B/P (MAP) Pulse Ox O2 Delivery O2 Flow Rate FiO2 02/12/17 08:00 Nasal Cannula 3.0 02/12/17 07:35 36.5 71 22 98/65 (76) 99 Nasal Cannula 2.0 02/12/17 06:01 78 100/66 (77) 02/12/17 04:00 Nasal Cannula 3.0 02/12/17 03:42 36.4 60 20 91/58 (69) 96 Nasal Cannula 2.0 02/12/17 03:16 60 105/65 (78) Physical Exam: GEN: WNWD, in no acute distress, alert and appropriate, diaphoretic HEENT: NC/AT, pupils are equal and round bilaterally, normal sclerae, MMM CARDIO: tachy rate, S1/2 heard without m/g/r LUNGS: CTA bilaterally, no crackles, rales or wheezes, good diaphragmatic excursion ABD: soft, non-tender, non-distended, no rebound or guarding EXTREMITY: RP and DP palpable 2+ bilat, no LE swelling or edema, extremities are warm and well-perfused N/M: chronic muscle spasms, 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 SKIN: warm and dry, sacral wounds-Stage II. Skin on anterior chest is red without rash and this extends down his anterior trunk to his knees bilaterally. Laboratory Results: 02/12/17 05:44 Red Blood Count 3.18, Mean Corpuscular Volume 97.8, Mean Corpuscular Hemoglobin 33.0, Mean Corpuscular Hemoglobin Concent 33.8, Mean Platelet Volume 12.1 02/12/17 05:20 Test 02/09/17 08:05 02/09/17 08:10 02/09/17 08:12 02/09/17 08:30 Metamyelocytes % 0.9 % Metamyelocytes # 0.07 K/uL (0-0) Blood Smear Review Basophilic Stippling 1+ Rouleau 1+ Absolute Reticulocyte Count 0.03 10^6/uL (0.02-0.10) Percent Reticulocyte Count 2.0 % (0.5-2.0) Total Bilirubin 0.4 mg/dl (0.2-1) Aspartate Amino Transf (AST/SGOT) 26 U/L (15-37) Alanine Aminotransferase (ALT/SGPT) 25 U/L (12-78) Alkaline Phosphatase 67 U/L (45-117) Total Protein 7.4 gm/dl (6.4-8.2) Albumin 2.2 gm/dl (3.4-5.0) Globulin 5.2 gm/dl (2.5-4.0) Albumin/Globulin Ratio 0.4 (0.9-2) Thyroid Stimulating Hormone (TSH) 3.560 uIu/ml (0.300-4.500) Bedside Troponin I < 0.030 ng/ml (0-0.045) Bedside Hemoglobin 6.5 g/dl (14.0-18.0) Bedside Hematocrit 19 % (42-52) Bedside Sodium 136 mEq/L (135-144) Bedside Potassium 4.6 mEq/L (3.3-5.0) Bedside Chloride 100 mEq/L (101-112) Bedside Total CO2 24 mEq/l (24-31) Bedside Blood Urea Nitrogen 31 mg/dl (7-18) Bedside Creatinine 2.6 mg/dl (0.6-1.3) Bedside Glucose (other) 217 mg/dl (70-99) Bedside Ionized Calcium (Olga Lidia) 1.12 mmol/l (1.12-1.32) Bedside Lactic Acid Venous 2.03 mmol/L (0.90-1.70) Test 02/09/17 11:25 02/10/17 06:00 02/11/17 12:59 02/11/17 19:10 Urine Color YELLOW Urine Appearance CLEAR (CLEAR) Urine pH 7.5 (4.5-7.5) Urine Specific Gravette 1.008 (1.000-1.030) Urine Protein 1+ (NEG) Urine Glucose (UA) NEG (NEG) Urine Ketones NEG (NEG) Urine Occult Blood NEG (NEG) Urine Nitrite NEG (NEG) Urine Bilirubin NEG (NEG) Urine Urobilinogen NEG (NEG) Urine Leukocyte Esterase SMALL (NEG) Urine WBC (Auto) >30 /hpf (0-5) Urine RBC (Auto) 0-4 /hpf (0-4) Urine Hyaline Casts (Auto) 0 /lpf (0-5) Urine Epithelial Cells (Auto) 0-5 /lpf (0-5) Urine Bacteria (Auto) 3+ (NEG) Urine Random Creatinine 46.0 mg/dl Urine Random Sodium 39 mEq/L Basophils % (Manual) 10.1 % (0-2) Basophils # (Manual) 0.64 K/uL (0-0.2) Anisocytosis PRESENT Estimated Average Glucose 169 mg/dl Hemoglobin A1c 7.5 % (4.5-5.6) Giant Platelets 2+ Lactic Acid Level 2.0 mmol/L (0.4-2.0) Test 02/12/17 05:20 02/12/17 05:44 02/12/17 11:13 Anion Gap 8.0 mmol/L (3-11) Est Creatinine Clear Calc Drug Dose 23.9 ml/min Estimated GFR () 24.6 Estimated GFR (Non- 21.3 BUN/Creatinine Ratio 10.0 (10-20) Calcium Level 7.3 mg/dl (8.5-10.1) Magnesium Level 2.0 mg/dl (1.8-2.4) White Blood Count 7.51 K/uL (4.8-10.8) Red Blood Count 3.18 M/uL (4.7-6.1) Hemoglobin 10.5 g/dL (14.0-18.0) Hematocrit 31.1 % (42-52) Mean Corpuscular Volume 97.8 fL (80-100) Mean Corpuscular Hemoglobin 33.0 pg (25-34) Mean Corpuscular Hemoglobin Concent 33.8 g/dl (32-36) Platelet Count 203 K/uL (130-400) Mean Platelet Volume 12.1 fL (7.4-10.4) RDW Standard Deviation 63.9 fL (36.4-46.3) RDW Coefficient of Variation 18.6 % (11.5-14.5) Nucleated RBC Absolute Count (auto) 0.02 K/uL (0-0) Neutrophils % (Manual) 11.4 % Lymphocytes % (Manual) 15.8 % Monocytes % (Manual) 57.8 % Eosinophils % (Manual) 13.2 % Myelocytes % 0.9 % Blast Cells % 0.9 % Nucleated Red Blood Cells % 0.2 % Neutrophils # (Manual) 0.86 K/uL (1.4-6.5) Total Absolute Neutrophils 0.86 K/uL (1.4-6.5) Lymphocytes # (Manual) 1.19 K/uL (1.2-3.4) Total Absolute Lymphocytes 1.19 K/uL (1.2-3.4) Monocytes # (Manual) 4.34 K/uL (0.11-0.59) Eosinophils # (Manual) 0.99 K/uL (0-0.5) Myelocytes # 0.07 K/uL (0-0) Blast Cells # 0.07 K/uL (0-0) Echinocytes 1+ Bedside Glucose 186 mg/dl (70-99) Date/Time Source Procedure Growth Status 02/11/17 07:58 Blood Blood Culture Pending Received 02/09/17 11:25 Urine , Clean Catch Urine Culture - Final Providencia Stuartii Complete Last 24 Hours Test 02/11/17 12:01 02/11/17 12:59 02/11/17 14:34 02/11/17 15:52 Bedside Glucose 219 mg/dl 152 mg/dl White Blood Count 3.29 K/uL Red Blood Count 3.59 M/uL Hemoglobin 11.6 g/dL Hematocrit 35.4 % Mean Corpuscular Volume 98.6 fL Mean Corpuscular Hemoglobin 32.3 pg Mean Corpuscular Hemoglobin Concent 32.8 g/dl Platelet Count 198 K/uL Mean Platelet Volume 12.4 fL RDW Standard Deviation 64.6 fL RDW Coefficient of Variation 18.6 % Nucleated RBC Absolute Count (auto) 0.03 K/uL Neutrophils % (Manual) 31.3 % Lymphocytes % (Manual) 27.7 % Monocytes % (Manual) 34.7 % Eosinophils % (Manual) 5.4 % Myelocytes % 0.9 % Nucleated Red Blood Cells % 0.8 % Neutrophils # (Manual) 1.03 K/uL Total Absolute Neutrophils 1.03 K/uL Lymphocytes # (Manual) 0.91 K/uL Total Absolute Lymphocytes 0.91 K/uL Monocytes # (Manual) 1.14 K/uL Eosinophils # (Manual) 0.18 K/uL Myelocytes # 0.03 K/uL Giant Platelets 2+ Sodium Level 135 mmol/L Potassium Level 5.7 mmol/L Chloride Level 107 mmol/L Carbon Dioxide Level 18 mmol/L Anion Gap 10.0 mmol/L Blood Urea Nitrogen 26 mg/dl Creatinine 3.20 mg/dl Est Creatinine Clear Calc Drug Dose 20.9 ml/min Estimated GFR () 21.0 Estimated GFR (Non- 18.1 BUN/Creatinine Ratio 8.0 Random Glucose 203 mg/dl Calcium Level 7.4 mg/dl Lactic Acid Level 2.9 mmol/L Test 02/11/17 19:01 02/11/17 19:10 02/11/17 19:48 02/12/17 05:20 Sodium Level 138 mmol/L 138 mmol/L Potassium Level 4.7 mmol/L 4.0 mmol/L Chloride Level 108 mmol/L 109 mmol/L Carbon Dioxide Level 21 mmol/L 21 mmol/L Anion Gap 9.0 mmol/L 8.0 mmol/L Blood Urea Nitrogen 28 mg/dl 28 mg/dl Creatinine 3.00 mg/dl 2.80 mg/dl Est Creatinine Clear Calc Drug Dose 22.3 ml/min 23.9 ml/min Estimated GFR () 22.7 24.6 Estimated GFR (Non- 19.6 21.3 BUN/Creatinine Ratio 9.4 10.0 Random Glucose 126 mg/dl 96 mg/dl Calcium Level 7.5 mg/dl 7.3 mg/dl Lactic Acid Level 2.0 mmol/L Bedside Glucose 135 mg/dl Magnesium Level 2.0 mg/dl Test 02/12/17 05:44 02/12/17 06:53 White Blood Count 7.51 K/uL Red Blood Count 3.18 M/uL Hemoglobin 10.5 g/dL Hematocrit 31.1 % Mean Corpuscular Volume 97.8 fL Mean Corpuscular Hemoglobin 33.0 pg Mean Corpuscular Hemoglobin Concent 33.8 g/dl Platelet Count 203 K/uL Mean Platelet Volume 12.1 fL RDW Standard Deviation 63.9 fL RDW Coefficient of Variation 18.6 % Nucleated RBC Absolute Count (auto) 0.02 K/uL Neutrophils % (Manual) 11.4 % Lymphocytes % (Manual) 15.8 % Monocytes % (Manual) 57.8 % Eosinophils % (Manual) 13.2 % Myelocytes % 0.9 % Blast Cells % 0.9 % Nucleated Red Blood Cells % 0.2 % Neutrophils # (Manual) 0.86 K/uL Total Absolute Neutrophils 0.86 K/uL Lymphocytes # (Manual) 1.19 K/uL Total Absolute Lymphocytes 1.19 K/uL Monocytes # (Manual) 4.34 K/uL Eosinophils # (Manual) 0.99 K/uL Myelocytes # 0.07 K/uL Blast Cells # 0.07 K/uL Echinocytes 1+ Bedside Glucose 89 mg/dl Assessment & Plan 76 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 Overnight Vancomycin was started for empiric coverage of GPC in 1/2 blood cultures. He developed redness to the skin with a reported rash with infusion, which was stopped. The patient was given hydrocortisone and Benadryl. He was notable lethargic, tachycardic, febrile and hypotensive and was unable to swallow pills overnight 2/2 confusion. This morning rectal temp reveals 103F with BP 102/91, P100, R20, 96 % on 5L with oxymask. Tylenol was given and efforts were taken to reduce temp with ice, misting and a fan. On exam he appears lucid and is not complaining of a cough or any discomfort. He is tachycardic with a regular rhythm, clear lungs to auscultation, notably diaphoretic with erythematous skin with no rash or wheals seen on his skin. Erythema extends down his anterior chest to his knees. Urine culture is growing Provendencia and blood cultures have not speciated. Repeat BCx were drawn, and CXR reveals atelectasis on the L base. Lactate was 3.0 and creatinine was worse this morning. IVF were running at 125mls/hr overnight and initially were stopped until respiratory status could be assessed. Small 500mls bolus given over 4 hours and will trend lactate. ( repeat was 2.0) Working diagnosis includes but is not limited to drug reaction vs evolving sepsis vs transfusion reaction. ID consult placed for assistance. Antibiotics were broadened to Daptomycin, Aztreonam (amox allergy) and Levaquin (for pulmonary coverage of GPCs--h/o MRSA-- and double GN coverage as pt lives in a assisted and at higher risk for pseudomonas) 1. Sepsis vs drug reaction vs transfusion reaction-poss sources include Providencia UTI vs ?bacteremia, administration of vancomycin (most likely with immediate reaction during transfusion of the medication) vs transfusion reaction (pt has h/o MDS vs AML and was given blood transfusion on 02/09; correction of old notes, he was given LR blood). Pt is resuscitated, has been afebrile for 24 hours and is clinically improved. Cont broad spectrum abx per ID recs. 2. Hypoxia-etiologies include but not limited to exhaustion from febrile state (cerebral palsy patient notably confused and lethargic overnight on 02/10) vs HAP. CXR reveals atelectasis vs HAP. Clinically improved and weaned off oxygen supplementation as of 02/12. Hypoxia appears resolved. Denies coughing, chills and no fevers noted overnight. 3. Anemia-likely 2/2 underlying hematologic process which is still under investigation. Improved after transfusion. Hematology consult-decided against bone marrow biopsy in house. Cont to monitor. Per Dr. Person, patient will need weekly CBC with diff upon discharge with results sent to his office. 4. JULITA-received IVF in ER and urine studies were ordered. Improved slightly after volume given. UTI present, empirically placed on Rocephin pending cultures. With broadening of abx to include aztreonam, ceftriaxone was discontinued. Of note, pat stated he had fever a few days back and he has urinary incontinence at baseline. Urination appeared to be less frequent per nurses. Tried to pass Puentes unsuccessful. Required Urology to pass Puentes through a urethral stricture (required bedside urethral dilation). Puentes to remain in place for 2 weeks and patient needs to be seen as outpatient in Urology clinic. Initially thought to be part of his JULITA issue, however, renal has not improved this morning after placement of Puentes yesterday. Will place Nephro consult for assistance in am. 5. Hypotension-chronic, was recently admitted in December for syncope thought 2/2 OH. As he was on midodrine, his BP went up and despite stopping this, BP remained elevated. He was sent out on Norvasc which is not present on his list of meds currently. BP 90s systolic at this time. No antihypertensives at this time. 6. Pressure ulcer(s) of the sacrum, stage II, POA-apprec wound care assistance with management 7. DMII-cont home Lantus 10 Units qHS and ISS/carb coverage, controlled. Adjust per protocol while NPO 6. h/o MRSA in sputum-contact precautions 7. Urethral stricture s/p dilation this admission with Puentes placement-denies pain. UOP appears to have picked up. DVT proph-SCDs DNR-confirmed with patient and documented discussion with medical personnel at [facility]. Dispo-cont telemetry until cultures return and demonstrates one more day of clinical stability off oxygen. Pt wants to go home and expresses this daily to me. Today I explained to him that he has an infection which requires us to get cultures back to pick the best medicine for him to go home on. I also explained that his kidneys are in failure and we need to make them better prior to him going home. He states that he really wants to go home tomorrow. I called and LM with MAYCO Dale who is his nephew. Also called patient's sister and left vmail for her to call me back. Izzy Brady DO [facility] Hospitalist Consultants: ID Hematology Nephro Current Inpatient Medications: Current Inpatient Medications Medications (Trade) Dose Ordered Sig/Lucille Route Start Time Stop Time Status Last Admin Dose Admin Acetaminophen (Tylenol Tab) 650 mg Q4H PRN PO 02/09/17 10:15 03/11/17 10:14 Ondansetron HCl (Zofran Inj) 4 mg Q6H PRN IV 02/09/17 10:15 03/11/17 10:14 02/10/17 21:23 4 MG Insulin Glargine (Lantus Solostar Pen) 10 units HS SC 02/09/17 21:00 03/11/17 20:59 02/11/17 20:12 10 UNITS Glucose (Glucose 40% Gel) 15-30 GRAMS 15 GRAMS... UD PRN PO 02/09/17 10:15 03/11/17 10:14 Glucose (Glucose Chew Tab) 4-8 Tablets 4 Tabl... UD PRN PO 02/09/17 10:15 03/11/17 10:14 Dextrose (Dextrose 50% 50ML Syringe) 25-50ML OF 50% DW IV FOR... UD PRN IV 02/09/17 10:15 03/11/17 10:14 Glucagon (Glucagon Inj) 1 mg UD PRN SQ 02/09/17 10:15 03/11/17 10:14 Aspirin (Ecotrin Tab) 81 mg DAILY PO 02/10/17 09:00 03/12/17 08:59 02/12/17 08:13 81 MG Gabapentin (Neurontin Cap) 100 mg DAILY@1200 PO 02/09/17 13:00 03/11/17 12:59 02/10/17 12:08 100 MG Gabapentin (Neurontin Cap) 200 mg BID PO 02/09/17 21:00 03/11/17 20:59 02/12/17 08:14 200 MG Albuterol/ Ipratropium (Duoneb) 3 ml Q4H PRN INH 02/09/17 10:30 03/11/17 10:29 Levothyroxine Sodium (Synthroid Tab) 50 mcg DAILYBB PO 02/10/17 06:00 03/12/17 05:59 02/12/17 05:49 50 MCG Ranitidine HCl (zANTac TAB) 150 mg QAM PO 02/10/17 09:00 03/12/17 08:59 02/12/17 08:13 150 MG Terbinafine HCl (Lamisil At Cream) 1 appl BID EXT 02/09/17 21:00 02/13/17 20:59 02/12/17 08:15 1 APPL Zolpidem Tartrate (Ambien Tab) 5 mg HS PRN PO 02/09/17 10:30 03/11/17 10:29 02/10/17 21:23 5 MG Pantoprazole Sodium (Protonix Tab) 40 mg QAM PO 02/10/17 09:00 03/12/17 08:59 02/12/17 08:14 40 MG Polyethylene (Miralax Powder Packet) 17 gm DAILY PO 02/10/17 09:00 03/12/17 08:59 02/12/17 08:15 17 GM Tizanidine HCl (Zanaflex Tab) 4 mg TID PO 02/09/17 14:00 03/11/17 13:59 02/12/17 08:13 4 MG Miscellaneous Information (Order Awaiting Action) 1 ea QS N/A 02/09/17 16:00 03/11/17 15:59 Oxycodone HCl (Roxicodone Immediate Rel Tab) 5 mg Q6 PRN PO 02/09/17 10:30 02/23/17 10:29 02/11/17 20:12 5 MG Daptomycin (Consult) 1 ea UD PRN N/A 02/11/17 07:45 03/13/17 07:44 Aztreonam (Consult) 1 ea UD PRN N/A 02/11/17 09:15 03/13/17 09:14 Aztreonam 1000 mg/ Dextrose 110 ml @ 110 mls/hr Q8H IV 02/11/17 18:00 02/21/17 17:59 02/12/17 09:06 110 MLS/HR Levofloxacin (Consult) 1 ea UD PRN N/A 02/11/17 09:15 03/13/17 09:14 Levofloxacin 750 mg/Prmx 150 ml @ 100 mls/hr Q48H IV 02/11/17 10:00 02/18/17 09:59 02/11/17 10:51 100 MLS/HR Daptomycin 550 mg/ Sodium Chloride 61 ml @ 120 mls/hr Q2D@0800 IV 02/13/17 08:00 02/25/17 07:59 Insulin Aspart (novoLOG ASPART) SLIDING SCALE If C... ACHS SC 02/11/17 16:15 03/13/17 16:14 02/12/17 08:18 2 UNITS
[2017-02-12] MEDS: OXYCODONE HCL IR 5 MG TAB (IMMEDIATE RELEASE) PO PRN (18:01)
[2017-02-12] MEDS: INSULIN GLARGINE SOLOSTAR 100 UNITS/ML 3 ML PEN SC SCH (20:38)
[2017-02-13] VITALS (9 sets, daily range): BP systolic 85–118; BP diastolic 56–70; PULSE 63–80; TEMP 36.5–36.8; O2SAT 93–99
[2017-02-13] MEDS: AZTREONAM IV 1,000 MG in DEXTROSE 5% 100ML IV SCH ×3 (02:09→17:15)
[2017-02-13] MEDS: LEVOTHYROXINE 50 MCG TAB PO SCH (05:56)
[2017-02-13 07:23] LABS: BUN/CREATININE RATIO 10.6 (10-20); CALCIUM 8.1 mg/dl (8.5-10.1); CREATININE 2.4 mg/dl (0.60-1.40); POTASSIUM 4.3 mmol/L (3.5-5.1)
[2017-02-13 07:56] LABS: MEAN CELL VOLUME 97.3 fL (80-100); MEAN CORPUSCULAR HEMOGLOBIN 33.4 pg (25-34); MEAN CORPUSCULAR HGB CONC 34.4 g/dl (32-36); MEAN PLATELET VOLUME 11.9 fL (7.4-10.4); PLATELET COUNT 200 K/uL (130-400); RED BLOOD COUNT 3.29 M/uL (4.7-6.1); WHITE BLOOD COUNT 6.61 K/uL (4.8-10.8)
[2017-02-13] MEDS ORDERED: DAPTOmycin IV 550 MG in SODIUM CHLORIDE 0.9% 50ML 50 ML IV SCH (08:00)
[2017-02-13] MEDS: POLYETHYLENE (MIRALAX) 17 GM PACK PO SCH (08:12)
[2017-02-13] MEDS: ASPIRIN 81 MG ECTAB PO SCH (08:14)
[2017-02-13] MEDS: GABAPENTIN 100 MG CAP PO SCH ×3 (08:14→20:11)
[2017-02-13] MEDS: TERBINAFINE CR 30 GM TUBE EXT SCH (08:14)
[2017-02-13] MEDS: PANTOprazole SOD 40 MG TAB PO SCH (08:15)
[2017-02-13] MEDS: RANITIDINE HCL 150 MG TAB PO SCH (08:15)
[2017-02-13] MEDS: INSULIN ASPART 100 UNITS/ML 3 ML PEN SC SCH ×4 (08:28→20:17)
[2017-02-13 08:54] LABS: ANISOCYTOSIS PRESENT; GIANT PLATELETS 1+
[2017-02-13 08:56] LABS: BASO ABS # 0.12 K/uL (0-0.2); BASOPHIL % 1.8 % (0-2); COMPLETE YES; LYMPH ABS # 3.04 K/uL (1.2-3.4); MYELOCYTE % 1.8 %; NEUTROPHILS % 4.5 %
--- NOTE | 2017-02-13 09:44 | Progress Note ---
Subjective Date of Service: Feb 13, 2017. Subjective Pt evaluation today including: conversation w/ patient, chart review, lab review Voiding: ludwig catheter in place (patent, draining clear, yellow urine) 76 yo male s/p difficult ludwig placement for urethral stricture. Ludwig draining clear, yellow urine this morning. The pt is tearful this morning. Crying out that his right elbow hurts him and he just wants to go home. Right IV site previously appeared infiltrated, and IV team in the room this morning attempting to establish IV site of the LUE. Problem List Medical Problems: (1) Altered mental status Status: Acute (2) Elevated serum creatinine Status: Acute (3) Hypotension Status: Acute (4) Hypotension Status: Acute (5) Pneumonia Status: Acute (6) Sepsis Status: Acute (7) Severe anemia Status: Acute (8) Tachycardia Status: Acute (9) TIA (transient ischemic attack) Status: Acute Review of Systems See HPI. Pt crying, and visibly distraught. Unable to answer any further questions for me. Objective Vital Signs Date Time Temp Pulse Resp B/P (MAP) Pulse Ox O2 Delivery O2 Flow Rate FiO2 02/13/17 07:04 36.7 80 20 118/62 (80) 93 Room Air 02/13/17 04:00 Room Air 02/13/17 04:00 36.5 63 16 93/59 (70) 97 Room Air 02/13/17 00:00 Room Air 02/12/17 23:55 36.5 75 23 97/64 (75) 94 Room Air 02/12/17 20:00 Room Air 02/12/17 19:08 36.4 69 20 112/52 (72) 98 Room Air 02/12/17 17:56 98/56 (70) 02/12/17 16:49 86/56 (66) 02/12/17 16:00 Nasal Cannula 3.0 02/12/17 15:48 36.4 63 16 88/58 (68) 96 Room Air 02/12/17 12:00 Room Air 02/12/17 11:43 36.5 74 20 86/56 (66) 96 Room Air Physical Exam General Appearance: + moderate distress (pt tearful and crying out in pain ), + obese Eyes: normal inspection ENT: hearing grossly normal Neck: no JVD Respiratory/Chest: no respiratory distress, no accessory muscle use Cardiovascular: no JVD Extremities: + swelling (RUE ) Neurologic/Psychiatric: alert Skin: normal color Laboratory Results Last 24 Hours Test 02/12/17 11:13 02/12/17 16:17 02/12/17 20:21 02/13/17 06:29 Bedside Glucose 186 mg/dl 144 mg/dl 144 mg/dl 86 mg/dl Test 02/13/17 06:40 White Blood Count 6.61 K/uL Red Blood Count 3.29 M/uL Hemoglobin 11.0 g/dL Hematocrit 32.0 % Mean Corpuscular Volume 97.3 fL Mean Corpuscular Hemoglobin 33.4 pg Mean Corpuscular Hemoglobin Concent 34.4 g/dl Platelet Count 200 K/uL Mean Platelet Volume 11.9 fL RDW Standard Deviation 62.3 fL RDW Coefficient of Variation 18.3 % Neutrophils % (Manual) 4.5 % Lymphocytes % (Manual) 46.0 % Monocytes % (Manual) 25.2 % Eosinophils % (Manual) 18.0 % Basophils % (Manual) 1.8 % Myelocytes % 1.8 % Blast Cells % 2.7 % Neutrophils # (Manual) 0.30 K/uL Total Absolute Neutrophils 0.30 K/uL Lymphocytes # (Manual) 3.04 K/uL Total Absolute Lymphocytes 3.04 K/uL Monocytes # (Manual) 1.67 K/uL Eosinophils # (Manual) 1.19 K/uL Basophils # (Manual) 0.12 K/uL Myelocytes # 0.12 K/uL Hypogranular Neutrophils 1+ Blast Cells # 0.18 K/uL Giant Platelets 1+ Anisocytosis PRESENT Sodium Level 136 mmol/L Potassium Level 4.3 mmol/L Chloride Level 106 mmol/L Carbon Dioxide Level 23 mmol/L Anion Gap 7.0 mmol/L Blood Urea Nitrogen 26 mg/dl Creatinine 2.40 mg/dl Est Creatinine Clear Calc Drug Dose 28.0 ml/min Estimated GFR () 29.7 Estimated GFR (Non- 25.6 BUN/Creatinine Ratio 10.6 Random Glucose 86 mg/dl Calcium Level 8.1 mg/dl Assessment and Plan A/P: Urethral stricture, UTI AFVSS. Pt RUE swelling and right elbow pain discussed with RN and Dr. Brady this morning. Will plan to leave ludwig in place for 10-14 days. Will need outpatient cysto for further evaluation. Management of UTI per ID. No further management at this time. Recall PRN issues. Thanks for allowing us to participate in this pt's care.
[2017-02-13] MEDS: LEVOFLOXACIN 750MG / D5W IV SCH (11:00)
--- NOTE | 2017-02-13 17:33 | NEPHROLOGY CONSULTATION ---
DATE OF CONSULTATION: 02/13/2017 ATTENDING OF RECORD: Dr. Brady. REASON FOR CONSULTATION: JULITA on CKD. HISTORY OF PRESENT ILLNESS: This is a 76-year-old male who has cerebral palsy, who is at [facility] and was just recently diagnosed with myelodysplastic syndrome vs AML. The patient presented with altered mental status while attempting to get a blood transfusion, was hypotensive and given aggressive IV fluids. Hemoglobin was down to 5.7. The patient was recently evaluated by Dr. Person as an outpatient. The patient's creatinine was 2.7, improved down to 2.2 in the following day and then started to trend up and was 3.2 on the and has now trending down again, it is 2.4. The patient required urologic consultation on the secondary to difficult insertion of Puentes catheter. Puentes catheter was successfully placed and he will likely need it for several weeks and possible need for cystoscopy as an outpatient secondary to urethral stricture. The patient had positive urine culture as well as 1/2 positive blood cultures for coag negative staph. Repeat blood cultures 2 days later were negative. The patient is currently on daptomycin and aztreonam and Levaquin for infection. The patient has limited understanding and was hoping to go home. He did receive 2 units of leukoreduced RBCs on the . Hemoglobin level was 5.7 and is now stabilized at 11 after just 2 units. PAST MEDICAL HISTORY: Cerebral palsy, CKD stage III, and type 2 diabetes. PAST SURGICAL HISTORY: not known FAMILY HISTORY: No renal disease known in the family. SOCIAL HISTORY: No smoking, no alcohol, and no drugs. Lives at [facility]. HOME MEDICATIONS: Significant for Norvasc and insulin. CURRENT MEDICATIONS: Dapto, aztreonam, insulin, Levaquin, aspirin 81 mg a day, Protonix 40 mg a day, Zantac 150 mg daily, levothyroxine 50 mcg daily, MiraLax 17 grams daily, and Neurontin 200 mg p.o. b.i.d. REVIEW OF SYSTEMS: Difficult to obtain secondary to mental status. The patient though admits to being tired as well as mildly short of breath, although unable to get a reliable review of systems from him. PHYSICAL EXAMINATION: VITAL SIGNS: Temperature 36.6, pulse 68, respiratory rate 18, blood pressure 85/56, and satting 99% on room air. GENERAL: Awake. EYES: No scleral icterus. ENT: Mucous membranes are moist. NECK: Supple. PULMONARY: Clear to auscultation. CARDIAC: Regular rate and rhythm. ABDOMEN: Bowel sounds positive. Soft and nontender. EXTREMITIES: Significant right upper extremity swelling. Bilateral foot braces. NEUROLOGICAL: Cerebral palsy, chronic, unchanged. DERMATOLOGIC: No rash noted. LABORATORY DATA: White count 6.61, H&H 11 and 32, and platelet count is 200. Sodium level is 136, potassium 4.3, chloride is 106, bicarb is 23, BUN is 26, creatinine is 2.4, and calcium is 8.1. UA on the showed a pH of 7.5, specific gravity of 1.008, 1+ protein, small leukocyte esterase, greater than 30 WBCs, and 3+ bacteria. Urine culture positive for Providencia stuartii. ASSESSMENT AND PLAN: Acute kidney injury on chronic kidney disease in the setting of sepsis with bacteremia and positive urinary tract infection and anemia, being appropriately treated. Making good urine, which appears clear and creatinine has peaked at 3.2 and appears to be trending down. Continue current antibiotics. Appears to be symptomatically improving. Baseline creatinine appears to be 1.4-1.6. Hopefully, creatinine continues to improve. The patient is quite edematous in the upper extremities, likely secondary to limited mobility. We will continue to follow. Continue current plan of care. I appreciate the consultation. KEATON
[2017-02-13] MEDS ORDERED: MoRPHine SULFATE 4 MG/ML 1 ML CARP\\VIAL IV PRN (18:45)
--- NOTE | 2017-02-13 19:37 | Infectious Disease Progress Nt ---
Progress Note Date of Service Feb 13, 2017. Subjective Pt evaluation today including: conversation w/ patient, physical exam, chart review, lab review, review of studies, conversation w/ decorating consultant, review of inpatient medication list Patient offering no new complaints today. Remains afebrile. Declining bone marrow examination. All Other Systems: Reviewed and Negative Medications Current Inpatient Medications Medications (Trade) Dose Ordered Sig/Lucille Route Start Time Stop Time Status Last Admin Dose Admin Acetaminophen (Tylenol Tab) 650 mg Q4H PRN PO 02/09/17 10:15 03/11/17 10:14 02/13/17 18:15 650 MG Ondansetron HCl (Zofran Inj) 4 mg Q6H PRN IV 02/09/17 10:15 03/11/17 10:14 02/10/17 21:23 4 MG Insulin Glargine (Lantus Solostar Pen) 10 units HS SC 02/09/17 21:00 03/11/17 20:59 02/12/17 20:38 10 UNITS Glucose (Glucose 40% Gel) 15-30 GRAMS 15 GRAMS... UD PRN PO 02/09/17 10:15 03/11/17 10:14 Glucose (Glucose Chew Tab) 4-8 Tablets 4 Tabl... UD PRN PO 02/09/17 10:15 03/11/17 10:14 Dextrose (Dextrose 50% 50ML Syringe) 25-50ML OF 50% DW IV FOR... UD PRN IV 02/09/17 10:15 03/11/17 10:14 Glucagon (Glucagon Inj) 1 mg UD PRN SQ 02/09/17 10:15 03/11/17 10:14 Aspirin (Ecotrin Tab) 81 mg DAILY PO 02/10/17 09:00 03/12/17 08:59 02/13/17 08:14 81 MG Gabapentin (Neurontin Cap) 100 mg DAILY@1200 PO 02/09/17 13:00 03/11/17 12:59 02/13/17 13:55 100 MG Gabapentin (Neurontin Cap) 200 mg BID PO 02/09/17 21:00 03/11/17 20:59 02/13/17 08:14 200 MG Albuterol/ Ipratropium (Duoneb) 3 ml Q4H PRN INH 02/09/17 10:30 03/11/17 10:29 Levothyroxine Sodium (Synthroid Tab) 50 mcg DAILYBB PO 02/10/17 06:00 03/12/17 05:59 02/13/17 05:56 50 MCG Ranitidine HCl (zANTac TAB) 150 mg QAM PO 02/10/17 09:00 03/12/17 08:59 02/13/17 08:15 150 MG Terbinafine HCl (Lamisil At Cream) 1 appl BID EXT 02/09/17 21:00 02/13/17 20:59 02/13/17 08:14 1 APPL Zolpidem Tartrate (Ambien Tab) 5 mg HS PRN PO 02/09/17 10:30 03/11/17 10:29 02/10/17 21:23 5 MG Pantoprazole Sodium (Protonix Tab) 40 mg QAM PO 02/10/17 09:00 03/12/17 08:59 02/13/17 08:15 40 MG Polyethylene (Miralax Powder Packet) 17 gm DAILY PO 02/10/17 09:00 03/12/17 08:59 02/12/17 08:15 17 GM Tizanidine HCl (Zanaflex Tab) 4 mg TID PO 02/09/17 14:00 03/11/17 13:59 02/13/17 13:55 4 MG Miscellaneous Information (Order Awaiting Action) 1 ea QS N/A 02/09/17 16:00 03/11/17 15:59 Oxycodone HCl (Roxicodone Immediate Rel Tab) 5 mg Q6 PRN PO 02/09/17 10:30 02/23/17 10:29 02/12/17 18:01 5 MG Daptomycin (Consult) 1 ea UD PRN N/A 02/11/17 07:45 03/13/17 07:44 Aztreonam (Consult) 1 ea UD PRN N/A 02/11/17 09:15 03/13/17 09:14 Aztreonam 1000 mg/ Dextrose 110 ml @ 110 mls/hr Q8H IV 02/11/17 18:00 02/21/17 17:59 02/13/17 17:15 110 MLS/HR Levofloxacin (Consult) 1 ea UD PRN N/A 02/11/17 09:15 03/13/17 09:14 Levofloxacin 750 mg/Prmx 150 ml @ 100 mls/hr Q48H IV 02/11/17 10:00 02/18/17 09:59 02/13/17 11:00 100 MLS/HR Daptomycin 550 mg/ Sodium Chloride 61 ml @ 120 mls/hr Q2D@0800 IV 02/13/17 08:00 02/25/17 07:59 02/13/17 08:23 120 MLS/HR Insulin Aspart (novoLOG ASPART) SLIDING SCALE If C... ACHS SC 02/11/17 16:15 03/13/17 16:14 02/13/17 16:45 3 UNITS Morphine Sulfate (MoRPHine SULFATE INJ) 4 mg Q2H PRN IV 02/13/17 18:45 02/27/17 18:44 02/13/17 18:59 4 MG Objective Vital Signs Date Time Temp Pulse Resp B/P (MAP) Pulse Ox O2 Delivery O2 Flow Rate FiO2 02/13/17 16:22 93 Room Air 02/13/17 15:31 36.6 68 18 85/56 (66) 99 Room Air 02/13/17 12:18 93 Room Air 02/13/17 11:30 36.6 80 19 92/58 (69) 98 Room Air 02/13/17 08:01 93 Room Air 02/13/17 07:04 36.7 80 20 118/62 (80) 93 Room Air 02/13/17 04:00 Room Air 02/13/17 04:00 36.5 63 16 93/59 (70) 97 Room Air 02/13/17 00:00 Room Air 02/12/17 23:55 36.5 75 23 97/64 (75) 94 Room Air 02/12/17 20:00 Room Air Physical Exam General Appearance: WD/WN, no apparent distress Eyes: normal inspection, EOMI, sclerae normal ENT: normal ENT inspection, pharynx normal Neck: supple, no adenopathy, trachea midline Respiratory/Chest: lungs clear, normal breath sounds, no respiratory distress Cardiovascular: regular rate, rhythm, no gallop, no murmur Abdomen: normal bowel sounds, non tender, soft, no organomegaly Extremities: non-tender, no calf tenderness Neurologic/Psychiatric: alert, oriented x 3 Skin: normal color, warm/dry, no rash Lymphatic: no adenopathy Laboratory Results RUN DATE: 02/13/17 [facility] [address] LAB PAGE 1 RUN TIME: 651 Specimen Inquiry PATIENT: DELMY DAO LOC: Charles U # : [id number] AGE/SX: 76/M ROOM: [facility] REG : 02/09/[address]: Izzy Brady DO : 1940 BED: 1 DIS : STATUS: ADM IN TLOC: SPEC #: [id number] TAYLOR: 02/11/17 STATUS: RES REQ #: [id number] RECD: 02/11/[address]: Izzy Brady DO SOURCE: BLOOD ENTR: 02/11/[address] [facility] [address]: Jackie Castaneda MD [facility]: Geo Varela M.D. ORDERED: BLOOD CULTURE Procedure Result Verified Site BLD CULT Preliminary 02/13/17-651 NO GROWTH TO DATE. Last 24 Hours Test 02/12/17 20:21 02/13/17 06:29 02/13/17 06:40 02/13/17 11:07 Bedside Glucose 144 mg/dl 86 mg/dl 158 mg/dl White Blood Count 6.61 K/uL Red Blood Count 3.29 M/uL Hemoglobin 11.0 g/dL Hematocrit 32.0 % Mean Corpuscular Volume 97.3 fL Mean Corpuscular Hemoglobin 33.4 pg Mean Corpuscular Hemoglobin Concent 34.4 g/dl Platelet Count 200 K/uL Mean Platelet Volume 11.9 fL RDW Standard Deviation 62.3 fL RDW Coefficient of Variation 18.3 % Neutrophils % (Manual) 4.5 % Lymphocytes % (Manual) 46.0 % Monocytes % (Manual) 25.2 % Eosinophils % (Manual) 18.0 % Basophils % (Manual) 1.8 % Myelocytes % 1.8 % Blast Cells % 2.7 % Neutrophils # (Manual) 0.30 K/uL Total Absolute Neutrophils 0.30 K/uL Lymphocytes # (Manual) 3.04 K/uL Total Absolute Lymphocytes 3.04 K/uL Monocytes # (Manual) 1.67 K/uL Eosinophils # (Manual) 1.19 K/uL Basophils # (Manual) 0.12 K/uL Myelocytes # 0.12 K/uL Hypogranular Neutrophils 1+ Blast Cells # 0.18 K/uL Giant Platelets 1+ Anisocytosis PRESENT Sodium Level 136 mmol/L Potassium Level 4.3 mmol/L Chloride Level 106 mmol/L Carbon Dioxide Level 23 mmol/L Anion Gap 7.0 mmol/L Blood Urea Nitrogen 26 mg/dl Creatinine 2.40 mg/dl Est Creatinine Clear Calc Drug Dose 28.0 ml/min Estimated GFR () 29.7 Estimated GFR (Non- 25.6 BUN/Creatinine Ratio 10.6 Random Glucose 86 mg/dl Calcium Level 8.1 mg/dl Test 02/13/17 16:05 Bedside Glucose 128 mg/dl Assessment and Plan Fever with encephalopathy in a patient with myelodysplastic syndrome, most likely from Providencia urinary tract infection, though cannot rule out early developing pneumonia. Likely coagulase negative Staph in blood culture represents a contaminant, and we are awaiting follow-up blood cultures to confirm. Patient can be transitioned to oral ciprofloxacin to compete 7 days Rx for potential UTI. Will follow.
[2017-02-13] MEDS: INSULIN GLARGINE SOLOSTAR 100 UNITS/ML 3 ML PEN SC SCH (20:11)
[2017-02-13] MEDS: ZOLPIDEM TARTRATE 5 MG TAB PO PRN (21:24)
--- NOTE | 2017-02-13 22:57 | Progress Note ---
Medicine Progress Note Date & Time of Visit: Feb 13, 2017 at 17:04. Subjective upset because he wants to go home he verbalized that he doesn't want the BM biopsy and he doesn't want anymore needles or poking He declines all symptoms at this time. Tolerating PO Has pain in his R arm 2/2 IV infiltration that occurred this morning. Objective Last 8 Hrs Date Time Temp Pulse Resp B/P (MAP) Pulse Ox O2 Delivery O2 Flow Rate FiO2 02/13/17 16:22 93 Room Air 02/13/17 15:31 36.6 68 18 85/56 (66) 99 Room Air 02/13/17 12:18 93 Room Air 02/13/17 11:30 36.6 80 19 92/58 (69) 98 Room Air Physical Exam: GEN: WNWD, in emotional distress, alert and appropriate HEENT: NC/AT, pupils are equal and round bilaterally, normal sclerae, MMM CARDIO: tachy rate, S1/2 heard without m/g/r LUNGS: CTA bilaterally, no crackles, rales or wheezes, good diaphragmatic excursion ABD: soft, non-tender, non-distended, no rebound or guarding EXTREMITY: RP and DP palpable 2+ bilat, no LE swelling or edema, extremities are warm and well-perfused N/M: chronic muscle spasms, 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 SKIN: warm and dry, sacral wounds-Stage II. Laboratory Results: 02/13/17 06:40 Red Blood Count 3.29, Mean Corpuscular Volume 97.3, Mean Corpuscular Hemoglobin 33.4, Mean Corpuscular Hemoglobin Concent 34.4, Mean Platelet Volume 11.9 02/13/17 06:40 Test 02/09/17 08:05 02/09/17 08:10 02/09/17 08:12 02/09/17 08:30 Metamyelocytes % 0.9 % Metamyelocytes # 0.07 K/uL (0-0) Blood Smear Review Basophilic Stippling 1+ Rouleau 1+ Absolute Reticulocyte Count 0.03 10^6/uL (0.02-0.10) Percent Reticulocyte Count 2.0 % (0.5-2.0) Total Bilirubin 0.4 mg/dl (0.2-1) Aspartate Amino Transf (AST/SGOT) 26 U/L (15-37) Alanine Aminotransferase (ALT/SGPT) 25 U/L (12-78) Alkaline Phosphatase 67 U/L (45-117) Total Protein 7.4 gm/dl (6.4-8.2) Albumin 2.2 gm/dl (3.4-5.0) Globulin 5.2 gm/dl (2.5-4.0) Albumin/Globulin Ratio 0.4 (0.9-2) Thyroid Stimulating Hormone (TSH) 3.560 uIu/ml (0.300-4.500) Bedside Troponin I < 0.030 ng/ml (0-0.045) Bedside Hemoglobin 6.5 g/dl (14.0-18.0) Bedside Hematocrit 19 % (42-52) Bedside Sodium 136 mEq/L (135-144) Bedside Potassium 4.6 mEq/L (3.3-5.0) Bedside Chloride 100 mEq/L (101-112) Bedside Total CO2 24 mEq/l (24-31) Bedside Blood Urea Nitrogen 31 mg/dl (7-18) Bedside Creatinine 2.6 mg/dl (0.6-1.3) Bedside Glucose (other) 217 mg/dl (70-99) Bedside Ionized Calcium (Olga Lidia) 1.12 mmol/l (1.12-1.32) Bedside Lactic Acid Venous 2.03 mmol/L (0.90-1.70) Test 02/09/17 11:25 02/10/17 06:00 02/11/17 19:10 02/12/17 05:20 Urine Color YELLOW Urine Appearance CLEAR (CLEAR) Urine pH 7.5 (4.5-7.5) Urine Specific Gaylord 1.008 (1.000-1.030) Urine Protein 1+ (NEG) Urine Glucose (UA) NEG (NEG) Urine Ketones NEG (NEG) Urine Occult Blood NEG (NEG) Urine Nitrite NEG (NEG) Urine Bilirubin NEG (NEG) Urine Urobilinogen NEG (NEG) Urine Leukocyte Esterase SMALL (NEG) Urine WBC (Auto) >30 /hpf (0-5) Urine RBC (Auto) 0-4 /hpf (0-4) Urine Hyaline Casts (Auto) 0 /lpf (0-5) Urine Epithelial Cells (Auto) 0-5 /lpf (0-5) Urine Bacteria (Auto) 3+ (NEG) Urine Random Creatinine 46.0 mg/dl Urine Random Sodium 39 mEq/L Estimated Average Glucose 169 mg/dl Hemoglobin A1c 7.5 % (4.5-5.6) Lactic Acid Level 2.0 mmol/L (0.4-2.0) Magnesium Level 2.0 mg/dl (1.8-2.4) Test 02/12/17 05:44 02/13/17 06:40 02/13/17 20:16 Nucleated RBC Absolute Count (auto) 0.02 K/uL (0-0) Nucleated Red Blood Cells % 0.2 % Echinocytes 1+ White Blood Count 6.61 K/uL (4.8-10.8) Red Blood Count 3.29 M/uL (4.7-6.1) Hemoglobin 11.0 g/dL (14.0-18.0) Hematocrit 32.0 % (42-52) Mean Corpuscular Volume 97.3 fL (80-100) Mean Corpuscular Hemoglobin 33.4 pg (25-34) Mean Corpuscular Hemoglobin Concent 34.4 g/dl (32-36) Platelet Count 200 K/uL (130-400) Mean Platelet Volume 11.9 fL (7.4-10.4) RDW Standard Deviation 62.3 fL (36.4-46.3) RDW Coefficient of Variation 18.3 % (11.5-14.5) Neutrophils % (Manual) 4.5 % Lymphocytes % (Manual) 46.0 % Monocytes % (Manual) 25.2 % Eosinophils % (Manual) 18.0 % Basophils % (Manual) 1.8 % (0-2) Myelocytes % 1.8 % Blast Cells % 2.7 % Neutrophils # (Manual) 0.30 K/uL (1.4-6.5) Total Absolute Neutrophils 0.30 K/uL (1.4-6.5) Lymphocytes # (Manual) 3.04 K/uL (1.2-3.4) Total Absolute Lymphocytes 3.04 K/uL (1.2-3.4) Monocytes # (Manual) 1.67 K/uL (0.11-0.59) Eosinophils # (Manual) 1.19 K/uL (0-0.5) Basophils # (Manual) 0.12 K/uL (0-0.2) Myelocytes # 0.12 K/uL (0-0) Hypogranular Neutrophils 1+ Blast Cells # 0.18 K/uL (0-0) Giant Platelets 1+ Anisocytosis PRESENT Anion Gap 7.0 mmol/L (3-11) Est Creatinine Clear Calc Drug Dose 28.0 ml/min Estimated GFR () 29.7 Estimated GFR (Non- 25.6 BUN/Creatinine Ratio 10.6 (10-20) Calcium Level 8.1 mg/dl (8.5-10.1) Bedside Glucose 89 mg/dl (70-99) Date/Time Source Procedure Growth Status 02/11/17 07:58 Blood Blood Culture - Preliminary NO GROWTH TO DATE. Resulted 02/09/17 11:25 Urine , Clean Catch Urine Culture - Final Providencia Stuartii Complete Last 24 Hours Test 02/12/17 20:21 02/13/17 06:29 02/13/17 06:40 02/13/17 11:07 Bedside Glucose 144 mg/dl 86 mg/dl 158 mg/dl White Blood Count 6.61 K/uL Red Blood Count 3.29 M/uL Hemoglobin 11.0 g/dL Hematocrit 32.0 % Mean Corpuscular Volume 97.3 fL Mean Corpuscular Hemoglobin 33.4 pg Mean Corpuscular Hemoglobin Concent 34.4 g/dl Platelet Count 200 K/uL Mean Platelet Volume 11.9 fL RDW Standard Deviation 62.3 fL RDW Coefficient of Variation 18.3 % Neutrophils % (Manual) 4.5 % Lymphocytes % (Manual) 46.0 % Monocytes % (Manual) 25.2 % Eosinophils % (Manual) 18.0 % Basophils % (Manual) 1.8 % Myelocytes % 1.8 % Blast Cells % 2.7 % Neutrophils # (Manual) 0.30 K/uL Total Absolute Neutrophils 0.30 K/uL Lymphocytes # (Manual) 3.04 K/uL Total Absolute Lymphocytes 3.04 K/uL Monocytes # (Manual) 1.67 K/uL Eosinophils # (Manual) 1.19 K/uL Basophils # (Manual) 0.12 K/uL Myelocytes # 0.12 K/uL Hypogranular Neutrophils 1+ Blast Cells # 0.18 K/uL Giant Platelets 1+ Anisocytosis PRESENT Sodium Level 136 mmol/L Potassium Level 4.3 mmol/L Chloride Level 106 mmol/L Carbon Dioxide Level 23 mmol/L Anion Gap 7.0 mmol/L Blood Urea Nitrogen 26 mg/dl Creatinine 2.40 mg/dl Est Creatinine Clear Calc Drug Dose 28.0 ml/min Estimated GFR () 29.7 Estimated GFR (Non- 25.6 BUN/Creatinine Ratio 10.6 Random Glucose 86 mg/dl Calcium Level 8.1 mg/dl Test 02/13/17 16:05 Bedside Glucose 128 mg/dl Assessment & Plan 76 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 Overnight Vancomycin was started for empiric coverage of GPC in 1/2 blood cultures. He developed redness to the skin with a reported rash with infusion, which was stopped. The patient was given hydrocortisone and Benadryl. He was notable lethargic, tachycardic, febrile and hypotensive and was unable to swallow pills overnight 2/2 confusion. This morning rectal temp reveals 103F with BP 102/91, P100, R20, 96 % on 5L with oxymask. Tylenol was given and efforts were taken to reduce temp with ice, misting and a fan. On exam he appears lucid and is not complaining of a cough or any discomfort. He is tachycardic with a regular rhythm, clear lungs to auscultation, notably diaphoretic with erythematous skin with no rash or wheals seen on his skin. Erythema extends down his anterior chest to his knees. Urine culture is growing Provendencia and blood cultures have not speciated. Repeat BCx were drawn, and CXR reveals atelectasis on the L base. Lactate was 3.0 and creatinine was worse this morning. IVF were running at 125mls/hr overnight and initially were stopped until respiratory status could be assessed. Small 500mls bolus given over 4 hours and will trend lactate. ( repeat was 2.0) Working diagnosis includes but is not limited to drug reaction vs evolving sepsis vs transfusion reaction. ID consult placed for assistance. Antibiotics were broadened to Daptomycin, Aztreonam (amox allergy) and Levaquin (for pulmonary coverage of GPCs--h/o MRSA-- and double GN coverage as pt lives in a intermediate and at higher risk for pseudomonas). Clinically improved in one half day, fever broke and lactate came down with IVF. It has been two days and he has been clinically stable. IV abx changed to Cipro PO on 02/13 for total 7 days (incl abx given here) for UTI. Still need to see renal improvement but patient is crying to go home and doesn't want anymore needlesticks or anything to be done. Pt's nephew is a PA here and knows his uncle and how he is. He agrees with am labs to monitor kidney function and then get things moving toward discharge as fast as possible. Please DC patient in am. 1. Sepsis vs drug reaction vs transfusion reaction-poss sources include Providencia UTI vs ?bacteremia, administration of vancomycin (most likely with immediate reaction during transfusion of the medication) vs transfusion reaction (pt has h/o MDS vs AML and was given blood transfusion on 02/09; correction of old notes, he was given LR blood). Pt is resuscitated, has been afebrile for 24 hours and is clinically improved. Abx narrowed to Cipro x 7 days for UTI. 2. Hypoxia-etiologies include but not limited to exhaustion from febrile state (cerebral palsy patient notably confused and lethargic overnight on 02/10) vs HAP. CXR reveals atelectasis vs HAP. Clinically improved and weaned off oxygen supplementation as of 02/12. Hypoxia appears resolved. Denies coughing, chills and no fevers noted overnight. 3. Anemia-likely 2/2 underlying hematologic process which is still under investigation-?MDS. Improved after transfusion. Hematology consult-decided against bone marrow biopsy in house. Cont to monitor. Per Dr. Person, patient will need weekly CBC with diff upon discharge with results sent to his office. Pt is stating that he doesn't want any of this. 4. JULITA-received IVF in ER and urine studies were ordered. Improved slightly after volume given. UTI present, empirically placed on Rocephin pending cultures. With broadening of abx to include aztreonam, ceftriaxone was discontinued. Of note, pat stated he had fever a few days back and he has urinary incontinence at baseline. Urination appeared to be less frequent per nurses. Tried to pass Puentes unsuccessful. Required Urology to pass Puentes through a urethral stricture (required bedside urethral dilation). Puentes to remain in place for 2 weeks and patient needs to be seen as outpatient in Urology clinic. Initially thought to be part of his JULITA issue, however, renal has not improved this morning after placement of Puentes yesterday. Placed Nephro consult. Cont to monitor with Puentes in place. 5. Hypotension-chronic, was recently admitted in December for syncope thought 2/2 OH. As he was on midodrine, his BP went up and despite stopping this, BP remained elevated. He was sent out on Norvasc which is not present on his list of meds currently. BP 90s systolic at this time. No antihypertensives at this time. Stable. 6. Pressure ulcer(s) of the sacrum, stage II, POA-apprec wound care assistance with management. Pt will need outpatient wound care when discharged back to [facility] . 7. DMII-cont home Lantus 10 Units qHS and ISS/carb coverage, controlled. Adjust per protocol while NPO 6. h/o MRSA in sputum-contact precautions 7. Urethral stricture s/p dilation this admission with Puentes placement-denies pain. UOP appears to have picked up. Will need outpatient Urology follow-up in 1-2 weeks for TOV. DVT proph-SCDs DNR-confirmed with patient and documented discussion with medical personnel at [facility] (Bertram Iniguez PA-C). Dispo-pt expressed in sobbing tears that he wants to go back to [facility]. He verbalized that he doesn't care about tests and diagnoses and he just wants to go. This was in front of his POA and nephew, Faraz, who agrees we need to set up transport. Abx changed to PO tonight. No matter what renal function is in am, I would send him home with outpatient follow-up of kidney function with Puentes in place. Pt needs to go home as stated. Minimize excessive vitals, needlesticks, etc. DO Tatianna Osuna Hospitalist Consultants: ID Hematology Nephro Current Inpatient Medications: Current Inpatient Medications Medications (Trade) Dose Ordered Sig/Lucille Route Start Time Stop Time Status Last Admin Dose Admin Acetaminophen (Tylenol Tab) 650 mg Q4H PRN PO 02/09/17 10:15 03/11/17 10:14 Ondansetron HCl (Zofran Inj) 4 mg Q6H PRN IV 02/09/17 10:15 03/11/17 10:14 02/10/17 21:23 4 MG Insulin Glargine (Lantus Solostar Pen) 10 units HS SC 02/09/17 21:00 03/11/17 20:59 02/12/17 20:38 10 UNITS Glucose (Glucose 40% Gel) 15-30 GRAMS 15 GRAMS... UD PRN PO 02/09/17 10:15 03/11/17 10:14 Glucose (Glucose Chew Tab) 4-8 Tablets 4 Tabl... UD PRN PO 02/09/17 10:15 03/11/17 10:14 Dextrose (Dextrose 50% 50ML Syringe) 25-50ML OF 50% DW IV FOR... UD PRN IV 02/09/17 10:15 03/11/17 10:14 Glucagon (Glucagon Inj) 1 mg UD PRN SQ 02/09/17 10:15 03/11/17 10:14 Aspirin (Ecotrin Tab) 81 mg DAILY PO 02/10/17 09:00 03/12/17 08:59 02/13/17 08:14 81 MG Gabapentin (Neurontin Cap) 100 mg DAILY@1200 PO 02/09/17 13:00 03/11/17 12:59 02/13/17 13:55 100 MG Gabapentin (Neurontin Cap) 200 mg BID PO 02/09/17 21:00 03/11/17 20:59 02/13/17 08:14 200 MG Albuterol/ Ipratropium (Duoneb) 3 ml Q4H PRN INH 02/09/17 10:30 03/11/17 10:29 Levothyroxine Sodium (Synthroid Tab) 50 mcg DAILYBB PO 02/10/17 06:00 03/12/17 05:59 02/13/17 05:56 50 MCG Ranitidine HCl (zANTac TAB) 150 mg QAM PO 02/10/17 09:00 03/12/17 08:59 02/13/17 08:15 150 MG Terbinafine HCl (Lamisil At Cream) 1 appl BID EXT 02/09/17 21:00 02/13/17 20:59 02/13/17 08:14 1 APPL Zolpidem Tartrate (Ambien Tab) 5 mg HS PRN PO 02/09/17 10:30 03/11/17 10:29 02/10/17 21:23 5 MG Pantoprazole Sodium (Protonix Tab) 40 mg QAM PO 02/10/17 09:00 03/12/17 08:59 02/13/17 08:15 40 MG Polyethylene (Miralax Powder Packet) 17 gm DAILY PO 02/10/17 09:00 03/12/17 08:59 02/12/17 08:15 17 GM Tizanidine HCl (Zanaflex Tab) 4 mg TID PO 02/09/17 14:00 03/11/17 13:59 02/13/17 13:55 4 MG Miscellaneous Information (Order Awaiting Action) 1 ea QS N/A 02/09/17 16:00 03/11/17 15:59 Oxycodone HCl (Roxicodone Immediate Rel Tab) 5 mg Q6 PRN PO 02/09/17 10:30 02/23/17 10:29 02/12/17 18:01 5 MG Daptomycin (Consult) 1 ea UD PRN N/A 02/11/17 07:45 03/13/17 07:44 Aztreonam (Consult) 1 ea UD PRN N/A 02/11/17 09:15 03/13/17 09:14 Aztreonam 1000 mg/ Dextrose 110 ml @ 110 mls/hr Q8H IV 02/11/17 18:00 02/21/17 17:59 02/13/17 10:55 110 MLS/HR Levofloxacin (Consult) 1 ea UD PRN N/A 02/11/17 09:15 03/13/17 09:14 Levofloxacin 750 mg/Prmx 150 ml @ 100 mls/hr Q48H IV 02/11/17 10:00 02/18/17 09:59 02/13/17 11:00 100 MLS/HR Daptomycin 550 mg/ Sodium Chloride 61 ml @ 120 mls/hr Q2D@0800 IV 02/13/17 08:00 02/25/17 07:59 02/13/17 08:23 120 MLS/HR Insulin Aspart (novoLOG ASPART) SLIDING SCALE If C... ACHS SC 02/11/17 16:15 03/13/17 16:14 02/13/17 16:45 3 UNITS
[2017-02-14] MEDS: OXYCODONE HCL IR 5 MG TAB (IMMEDIATE RELEASE) PO PRN (01:54)
[2017-02-14] MEDS: LEVOTHYROXINE 50 MCG TAB PO SCH (05:48)
[2017-02-14 06:51] LABS: BUN/CREATININE RATIO 9.4 (10-20); CALCIUM 8.3 mg/dl (8.5-10.1); POTASSIUM 4.1 mmol/L (3.5-5.1)
[2017-02-14 07:15] LABS: MEAN CORPUSCULAR HGB CONC 34.4 g/dl (32-36); PLATELET COUNT 198 K/uL (130-400)
[2017-02-14] MEDS: ASPIRIN 81 MG ECTAB PO SCH (07:35)
[2017-02-14] MEDS: GABAPENTIN 100 MG CAP PO SCH ×2 (07:36→11:16)
[2017-02-14] MEDS: POLYETHYLENE (MIRALAX) 17 GM PACK PO SCH (07:36)
[2017-02-14] MEDS: RANITIDINE HCL 150 MG TAB PO SCH (07:36)
[2017-02-14] MEDS: PANTOprazole SOD 40 MG TAB PO SCH (07:36)
[2017-02-14] MEDS: INSULIN ASPART 100 UNITS/ML 3 ML PEN SC SCH ×3 (07:41→16:15)
[2017-02-14 07:44] VITALS: BP 110/72; PULSE 88; TEMP 36.6; O2SAT 92
--- NOTE | 2017-02-14 07:45 | Nephrology Progress Note ---
Nephrology Progress Note Date of Service: Feb 14, 2017. 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 pt was emotional yesterday and wants to go home. pt appears more calm this morning and trying to eat breakfast. urinating well in ludwig catheter. Objective Date Time Temp Pulse Resp B/P (MAP) Pulse Ox O2 Delivery O2 Flow Rate FiO2 02/14/17 04:00 Room Air 02/14/17 00:00 Room Air 02/13/17 23:24 36.5 78 18 96/70 (79) 98 Room Air 02/13/17 20:00 Room Air 02/13/17 19:41 36.8 78 18 100/58 (72) 94 Room Air 02/13/17 16:22 93 Room Air 02/13/17 15:31 36.6 68 18 85/56 (66) 99 Room Air 02/13/17 12:18 93 Room Air 02/13/17 11:30 36.6 80 19 92/58 (69) 98 Room Air 02/13/17 08:01 93 Room Air Physical Exam: General-aaox2 Eyes-no scleral icterus ENT-mmm Neck-supple Lungs-cta Heart-rrr Abdomen-bs+ s/nt/nd Extremities-no c/c/e Neuro-leg braces and difficulty moving arms with underlying cp Current Inpatient Medications Medications (Trade) Dose Ordered Sig/Lucille Route Start Time Stop Time Status Last Admin Dose Admin Acetaminophen (Tylenol Tab) 650 mg Q4H PRN PO 02/09/17 10:15 03/11/17 10:14 02/13/17 18:15 650 MG Ondansetron HCl (Zofran Inj) 4 mg Q6H PRN IV 02/09/17 10:15 03/11/17 10:14 02/10/17 21:23 4 MG Insulin Glargine (Lantus Solostar Pen) 10 units HS SC 02/09/17 21:00 03/11/17 20:59 02/13/17 20:11 10 UNITS Glucose (Glucose 40% Gel) 15-30 GRAMS 15 GRAMS... UD PRN PO 02/09/17 10:15 03/11/17 10:14 Glucose (Glucose Chew Tab) 4-8 Tablets 4 Tabl... UD PRN PO 8/10/17 10:15 03/11/17 10:14 Dextrose (Dextrose 50% 50ML Syringe) 25-50ML OF 50% DW IV FOR... UD PRN IV 02/09/17 10:15 03/11/17 10:14 Glucagon (Glucagon Inj) 1 mg UD PRN SQ 02/09/17 10:15 03/11/17 10:14 Aspirin (Ecotrin Tab) 81 mg DAILY PO 02/10/17 09:00 03/12/17 08:59 02/13/17 08:14 81 MG Gabapentin (Neurontin Cap) 100 mg DAILY@1200 PO 02/09/17 13:00 03/11/17 12:59 02/13/17 13:55 100 MG Gabapentin (Neurontin Cap) 200 mg BID PO 02/09/17 21:00 03/11/17 20:59 02/13/17 20:11 200 MG Albuterol/ Ipratropium (Duoneb) 3 ml Q4H PRN INH 02/09/17 10:30 03/11/17 10:29 Levothyroxine Sodium (Synthroid Tab) 50 mcg DAILYBB PO 02/10/17 06:00 03/12/17 05:59 02/14/17 05:48 50 MCG Ranitidine HCl (zANTac TAB) 150 mg QAM PO 02/10/17 09:00 03/12/17 08:59 02/13/17 08:15 150 MG Zolpidem Tartrate (Ambien Tab) 5 mg HS PRN PO 02/09/17 10:30 03/11/17 10:29 02/13/17 21:24 5 MG Pantoprazole Sodium (Protonix Tab) 40 mg QAM PO 02/10/17 09:00 03/12/17 08:59 02/13/17 08:15 40 MG Polyethylene (Miralax Powder Packet) 17 gm DAILY PO 02/10/17 09:00 03/12/17 08:59 02/12/17 08:15 17 GM Tizanidine HCl (Zanaflex Tab) 4 mg TID PO 02/09/17 14:00 03/11/17 13:59 02/13/17 20:10 4 MG Miscellaneous Information (Order Awaiting Action) 1 ea QS N/A 02/09/17 16:00 03/11/17 15:59 Oxycodone HCl (Roxicodone Immediate Rel Tab) 5 mg Q6 PRN PO 02/09/17 10:30 02/23/17 10:29 02/14/17 01:54 5 MG Insulin Aspart (novoLOG ASPART) SLIDING SCALE If C... ACHS SC 02/11/17 16:15 03/13/17 16:14 02/13/17 16:45 3 UNITS Morphine Sulfate (MoRPHine SULFATE INJ) 4 mg Q2H PRN IV 02/13/17 18:45 02/27/17 18:44 02/13/17 18:59 4 MG Ciprofloxacin (Cipro Tab) 500 mg DAILY PO 02/14/17 09:00 02/19/17 08:59 Last 24 Hours Test 02/13/17 11:07 02/13/17 16:05 02/13/17 20:16 02/14/17 06:14 Bedside Glucose 158 mg/dl 128 mg/dl 89 mg/dl 73 mg/dl Test 02/14/17 06:16 Mean Corpuscular Hemoglobin Concent 34.4 g/dl Platelet Count 198 K/uL Mean Platelet Volume 12.0 fL Sodium Level 138 mmol/L Potassium Level 4.1 mmol/L Chloride Level 108 mmol/L Carbon Dioxide Level 22 mmol/L Anion Gap 8.0 mmol/L Blood Urea Nitrogen 19 mg/dl Creatinine 2.00 mg/dl Est Creatinine Clear Calc Drug Dose 33.6 ml/min Estimated GFR () 37.0 Estimated GFR (Non- 31.9 BUN/Creatinine Ratio 9.4 Random Glucose 70 mg/dl Calcium Level 8.3 mg/dl Assessment & Plan [id number] has peaked and trending down. creatinine down to 2. baseline difficult to interpret but likely 1.4 to 1.6. ok from renal perspective to go home. would recheck bmp and cbc again in a week. creatinine likely to improve to baseline. urology would like to leave ludwig in for a couple of weeks with urethral stricture.
[2017-02-14 08:28] LABS: BASO ABS # 0.23 K/uL (0-0.2); BASOPHIL % 2.7 % (0-2); HEMATOCRIT 32.3 % (42-52); LYMPH ABS # 1.64 K/uL (1.2-3.4); LYMPHOCYTE % 19.6 %; MEAN CELL VOLUME 96.1 fL (80-100); MYELOCYTE % 1.8 %; NEUTROPHILS % 2.7 %; RED BLOOD COUNT 3.36 M/uL (4.7-6.1); WHITE BLOOD COUNT 8.38 K/uL (4.8-10.8)
[2017-02-14 08:29] LABS: COMPLETE YES
[2017-02-14] MEDS ORDERED: CIPROFLOXACIN 500 MG TAB PO SCH (09:00)
[2017-02-14 11:33] VITALS: BP 88/57; PULSE 78; TEMP 36.5; O2SAT 96
[2017-02-14] MEDS ORDERED: CPR500 PO (14:15)
--- NOTE | 2017-02-14 14:29 | Discharge Instructions ---
Discharge Instructions Date of Service Feb 14, 2017. Admission Reason for Admission: Symptomatic Anemia Discharge Discharge Diagnosis / Problem: UTI, Acute Kidney injury, Urethral stricture s/ p dilation, Hypotension Discharge Goals Goal(s): Decrease discomfort, Improve function, Improve disease control Activity Recommendations Activity Limitations: resume your previous activity (as tolerated) . Instructions / Follow-Up Instructions / Follow-Up Discharge to [facility] check BMP in 1 week to monitor renal function Follow up with urology in 1 -2 weeks Continue Puentes cath for about 10-14 days Check CBC in 1 week, please send result to Dr. Person office Monitor Blood Pressure and can start amlodipine if BP elevates (start with a lower dose and titrate) Complete antibiotic course Continue daily wound care, follow up with wound care Fall precaution Current Hospital Diet Patient's current hospital diet: AHA Diet (Heart Healthy), Diabetes Type 2 Diet Discharge Diet Recommended Diet: AHA Diet (Heart Healthy), Diabetes Type 2 Diet Pending Studies Studies pending at discharge: no Laboratory Results Hemoglobin A1c Test 02/10/17 06:00 Range/Units Estimated Average Glucose 169 mg/dl Hemoglobin A1c 7.5 H 4.5-5.6 % Medical Emergencies . Who to Call and When: Medical Emergencies: If at any time you feel your situation is an emergency, please call 911 immediately. . Non-Emergent Contact Non-Emergency issues call your: Primary Care Provider Call Non-Emergent contact if: you have a fever, you have any medication questions . . "Provider Documentation" section prepared by Juany Barroso. . VTE Core Measure Inpt VTE Proph given/why not?: SCD's, Contraindicated
[2017-02-14 14:38] VITALS: BP 100/58
[2017-02-14 14:47] VITALS: BP 100/58; PULSE 78; TEMP 36.5; O2SAT 96
--- NOTE | 2017-02-19 00:18 | Progress Note ---
Medicine Progress Note Date & Time of Visit: Feb 14, 2017 at 10:37. Subjective Pt was seen an examined Lying in bed with no acute distress Pt said that he feels fine He wants to leave today he denies any chest pain, palpitation, dizziness and SOB Objective Last 8 Hrs Date Time Temp Pulse Resp B/P (MAP) Pulse Ox O2 Delivery O2 Flow Rate FiO2 02/14/17 07:44 36.6 88 20 110/72 (85) 92 Room Air 02/14/17 07:30 Room Air 02/14/17 04:00 Room Air Physical Exam: General- No acute distress Head- atraumatic Eyes- PERRL, EOMI ENT- oropharynx clear Neck- supple, no JVD Lungs- No wheezing, no crackles Heart- regular rhythm; no murmur Abdomen- normal bowel sounds, soft Extremities- no calf tenderness Neuro- alert, oriented x 3; PERRL, EOMI; no facial palsy Skin- warm & dry Laboratory Results: Last 24 Hours Test 02/13/17 11:07 02/13/17 16:05 02/13/17 20:16 02/14/17 06:14 Bedside Glucose 158 mg/dl 128 mg/dl 89 mg/dl 73 mg/dl Test 02/14/17 06:16 White Blood Count 8.38 K/uL Red Blood Count 3.36 M/uL Hemoglobin 11.1 g/dL Hematocrit 32.3 % Mean Corpuscular Volume 96.1 fL Mean Corpuscular Hemoglobin 33.0 pg Mean Corpuscular Hemoglobin Concent 34.4 g/dl Platelet Count 198 K/uL Mean Platelet Volume 12.0 fL RDW Standard Deviation 60.6 fL RDW Coefficient of Variation 18.0 % Neutrophils % (Manual) 2.7 % Lymphocytes % (Manual) 19.6 % Monocytes % (Manual) 45.5 % Eosinophils % (Manual) 25.0 % Basophils % (Manual) 2.7 % Myelocytes % 1.8 % Promyelocytes % 0.9 % Blast Cells % 1.8 % Neutrophils # (Manual) 0.23 K/uL Total Absolute Neutrophils 0.23 K/uL Lymphocytes # (Manual) 1.64 K/uL Total Absolute Lymphocytes 1.64 K/uL Monocytes # (Manual) 3.81 K/uL Eosinophils # (Manual) 2.10 K/uL Basophils # (Manual) 0.23 K/uL Myelocytes # 0.15 K/uL Promyelocytes # 0.08 K/uL Hypogranular Neutrophils 1+ Blast Cells # 0.15 K/uL Sodium Level 138 mmol/L Potassium Level 4.1 mmol/L Chloride Level 108 mmol/L Carbon Dioxide Level 22 mmol/L Anion Gap 8.0 mmol/L Blood Urea Nitrogen 19 mg/dl Creatinine 2.00 mg/dl Est Creatinine Clear Calc Drug Dose 33.6 ml/min Estimated GFR () 37.0 Estimated GFR (Non- 31.9 BUN/Creatinine Ratio 9.4 Random Glucose 70 mg/dl Calcium Level 8.3 mg/dl Assessment & Plan 76 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 Overnight Vancomycin was started for empiric coverage of GPC in 1/2 blood cultures. He developed redness to the skin with a reported rash with infusion, which was stopped. The patient was given hydrocortisone and Benadryl. He was notable lethargic, tachycardic, febrile and hypotensive and was unable to swallow pills overnight 2/2 confusion. This morning rectal temp reveals 103F with BP 102/91, P100, R20, 96 % on 5L with oxymask. Tylenol was given and efforts were taken to reduce temp with ice, misting and a fan. On exam he appears lucid and is not complaining of a cough or any discomfort. He is tachycardic with a regular rhythm, clear lungs to auscultation, notably diaphoretic with erythematous skin with no rash or wheals seen on his skin. Erythema extends down his anterior chest to his knees. Urine culture is growing Provendencia and blood cultures have not speciated. Repeat BCx were drawn, and CXR reveals atelectasis on the L base. Lactate was 3.0 and creatinine was worse this morning. IVF were running at 125mls/hr overnight and initially were stopped until respiratory status could be assessed. Small 500mls bolus given over 4 hours and will trend lactate. ( repeat was 2.0) Working diagnosis includes but is not limited to drug reaction vs evolving sepsis vs transfusion reaction. ID consult placed for assistance. Antibiotics were broadened to Daptomycin, Aztreonam (amox allergy) and Levaquin (for pulmonary coverage of GPCs--h/o MRSA-- and double GN coverage as pt lives in a detention and at higher risk for pseudomonas). Clinically improved in one half day, fever broke and lactate came down with IVF. It has been two days and he has been clinically stable. IV abx changed to Cipro PO on 02/13 for total 7 days (incl abx given here) for UTI. Still need to see renal improvement but patient is crying to go home and doesn't want anymore needlesticks or anything to be done. Pt's nephew is a PA here and knows his uncle and how he is. He agrees with am labs to monitor kidney function and then get things moving toward discharge as fast as possible. 1. Sepsis vs drug reaction vs transfusion reaction-poss sources include Providencia UTI vs ?bacteremia, administration of vancomycin (most likely with immediate reaction during transfusion of the medication) vs transfusion reaction (pt has h/o MDS vs AML and was given blood transfusion on 02/09; correction of old notes, he was given LR blood). Pt is resuscitated, has been afebrile for 24 hours and is clinically improved. Abx narrowed to Cipro x 7 days for UTI. 2. Hypoxia-etiologies include but not limited to exhaustion from febrile state (cerebral palsy patient notably confused and lethargic overnight on 02/10) vs HAP. CXR reveals atelectasis vs HAP. Clinically improved and weaned off oxygen supplementation as of 02/12. Hypoxia appears resolved. Denies coughing, chills and no fevers noted overnight. 3. Anemia-likely 2/2 underlying hematologic process which is still under investigation-?MDS. Improved after transfusion. Hematology consult-decided against bone marrow biopsy in house. Cont to monitor. Per Dr. Person, patient will need weekly CBC with diff upon discharge with results sent to his office. Pt is stating that he doesn't want any of this. 4. JULITA-received IVF in ER and urine studies were ordered. Improved slightly after volume given. UTI present, empirically placed on Rocephin pending cultures. With broadening of abx to include aztreonam, ceftriaxone was discontinued. Of note, pat stated he had fever a few days back and he has urinary incontinence at baseline. Urination appeared to be less frequent per nurses. Tried to pass Puentes unsuccessful. Required Urology to pass Puentes through a urethral stricture (required bedside urethral dilation). Puentes to remain in place for 2 weeks and patient needs to be seen as outpatient in Urology clinic. Initially thought to be part of his JULITA issue, however, renal has not improved this morning after placement of Puentes yesterday. Placed Nephro consult. Cont to monitor with Puentes in place. 5. Hypotension-chronic, was recently admitted in December for syncope thought 2/2 OH. As he was on midodrine, his BP went up and despite stopping this, BP remained elevated. He was sent out on Norvasc which is not present on his list of meds currently. BP 90s systolic at this time. No antihypertensives at this time. Stable. 6. Pressure ulcer(s) of the sacrum, stage II, POA-apprec wound care assistance with management. Pt will need outpatient wound care when discharged back to [facility] . 7. DMII-cont home Lantus 10 Units qHS and ISS/carb coverage, controlled. Adjust per protocol while NPO 6. h/o MRSA in sputum-contact precautions 7. Urethral stricture s/p dilation this admission with Puentes placement-denies pain. UOP appears to have picked up. Will need outpatient Urology follow-up in 1-2 weeks for [facility]. DVT proph-SCDs DNR-confirmed with patient and documented discussion with medical personnel at [facility] (Bertram Iniguez PA-C). Dispo-pt expressed in sobbing tears that he wants to go back to [facility]. He verbalized that he doesn't care about tests and diagnoses and he just wants to go. This was in front of his POA and nephew, Faraz, who agrees we need to set up transport. Abx changed to PO tonight. No matter what renal function is in am, I would send him home with outpatient follow-up of kidney function with Puentes in place. Pt needs to go home as stated. Minimize excessive vitals, needlesticks, etc. t Consultants: [facility] Nephro Consultants: [facility] Current Inpatient Medications: Current Inpatient Medications Medications (Trade) Dose Ordered Sig/Lucille Route Start Time Stop Time Status Last Admin Dose Admin Acetaminophen (Tylenol Tab) 650 mg Q4H PRN PO 02/09/17 10:15 03/11/17 10:14 02/13/17 18:15 650 MG Ondansetron HCl (Zofran Inj) 4 mg Q6H PRN IV 02/09/17 10:15 03/11/17 10:14 02/10/17 21:23 4 MG Insulin Glargine (Lantus Solostar Pen) 10 units HS SC 02/09/17 21:00 03/11/17 20:59 02/13/17 20:11 10 UNITS Glucose (Glucose 40% Gel) 15-30 GRAMS 15 GRAMS... UD PRN PO 02/09/17 10:15 03/11/17 10:14 Glucose (Glucose Chew Tab) 4-8 Tablets 4 Tabl... UD PRN PO 02/09/17 10:15 03/11/17 10:14 Dextrose (Dextrose 50% 50ML Syringe) 25-50ML OF 50% DW IV FOR... UD PRN IV 02/09/17 10:15 03/11/17 10:14 Glucagon (Glucagon Inj) 1 mg UD PRN SQ 02/09/17 10:15 03/11/17 10:14 Aspirin (Ecotrin Tab) 81 mg DAILY PO 02/10/17 09:00 03/12/17 08:59 02/14/17 07:35 81 MG Gabapentin (Neurontin Cap) 100 mg DAILY@1200 PO 02/09/17 13:00 03/11/17 12:59 02/13/17 13:55 100 MG Gabapentin (Neurontin Cap) 200 mg BID PO 02/09/17 21:00 03/11/17 20:59 02/14/17 07:36 200 MG Albuterol/ Ipratropium (Duoneb) 3 ml Q4H PRN INH 02/09/17 10:30 03/11/17 10:29 Levothyroxine Sodium (Synthroid Tab) 50 mcg DAILYBB PO 02/10/17 06:00 03/12/17 05:59 02/14/17 05:48 50 MCG Ranitidine HCl (zANTac TAB) 150 mg QAM PO 02/10/17 09:00 03/12/17 08:59 02/14/17 07:36 150 MG Zolpidem Tartrate (Ambien Tab) 5 mg HS PRN PO 02/09/17 10:30 03/11/17 10:29 02/13/17 21:24 5 MG Pantoprazole Sodium (Protonix Tab) 40 mg QAM PO 02/10/17 09:00 03/12/17 08:59 02/14/17 07:36 40 MG Polyethylene (Miralax Powder Packet) 17 gm DAILY PO 02/10/17 09:00 03/12/17 08:59 02/14/17 07:36 17 GM Tizanidine HCl (Zanaflex Tab) 4 mg TID PO 02/09/17 14:00 03/11/17 13:59 02/14/17 07:35 4 MG Miscellaneous Information (Order Awaiting Action) 1 ea QS N/A 02/09/17 16:00 03/11/17 15:59 Oxycodone HCl (Roxicodone Immediate Rel Tab) 5 mg Q6 PRN PO 02/09/17 10:30 02/23/17 10:29 02/14/17 01:54 5 MG Insulin Aspart (novoLOG ASPART) SLIDING SCALE If C... ACHS SC 02/11/17 16:15 03/13/17 16:14 02/14/17 07:41 2 UNITS Morphine Sulfate (MoRPHine SULFATE INJ) 4 mg Q2H PRN IV 02/13/17 18:45 02/27/17 18:44 02/13/17 18:59 4 MG Ciprofloxacin (Cipro Tab) 500 mg DAILY PO 02/14/17 09:00 02/19/17 08:59 02/14/17 07:35 500 MG
--- NOTE | 2017-02-19 00:27 | Discharge Summary ---
Discharge Summary Date of Service Feb 19, 2017. Discharge Summary Admission Date: Feb 09, 2017 at 09:54 Discharge Date: Feb 14, 2017 Discharge Disposition: [facility] facility Principal Diagnosis: Anemia Secondary Diagnoses/Problems: UTI Acute Kidney injury Urethral stricture s/p dilation Hypotension Hypoxia Pressure Ulcer DM II Procedures: CHEST ONE VIEW PORTABLE HISTORY: admitted w anemia, now septic, rule out chest disease COMPARISON: Chest 02/09/2017. FINDINGS: The heart is normal in size. Cervical spinal fusion hardware. No pneumothorax. The right lung is clear. There are linear densities within the left lower lobe. This is new from the prior study. No pleural effusions. IMPRESSION: There are new linear densities at the left lower lobe. This favors subsegmental atelectasis. However, a pneumonia could also have a similar appearance. Electronically signed by: Haseeb Monteiro M.D. 02/11/2017 8:07 AM Dictated Date/Time: 02/11/2017 8:05 AM Consultations: ID Hematology Nephro Medication Reconciliation New Medications: Ciprofloxacin (Ciprofloxacin HCl) 500 Mg Tab 500 MG PO DAILY for 4 Days, #4 TAB Continued Medications: Acetaminophen Tab (Tylenol) 325 Mg Tab 650 MG PO Q4 PRN for Fever TEMP >100 , MILD-SEVERE Aspirin (Aspirin) 81 Mg Tab 81 MG PO DAILY Camphor & Menthol (Men-Phor) 1 Lot Lot 1 APPLN TOP QID PRN for APPLY TO BODY Gabapentin (Neurontin) 100 Mg Cap 200 MG PO AMPM Gabapentin (Neurontin) 100 Mg Cap 100 MG PO NOON Home O2 Therapy (Oxygen) Gas 2-4 LITERS NA PRN *TITRATE TO KEEP O2 ABOVE 90%* Insulin Aspart (Novolog) 100 Units/Ml Inj 6 UNITS SQ TIDM HOLD IF EATS <25% OF MEALS Insulin Glargine (Lantus) 100 Unit/Ml Inj 10 UNITS SQ HS, VIAL Ipratropium-Albuterol (Duoneb) 3 Ml Nebu 1 TREATMENT INH Q4H PRN for Wheezing Ketoconazole (Topical) (Ketoconazole) 2 % Sha 1 APPLN TOP 2XWK MONDAY & MONDAY Lansoprazole (Prevacid) 15 Mg Capcr 15 MG PO DAILY Levothyroxine Sodium (Levothyroxine Sodium) 50 Mcg Tab 50 MCG PO DAILY Menthol (Mouth-Throat) ([place] Cough Drops) 7 Mg Jossie 1 DROP PO Q2 PRN for COUGH/SORE THROAT Menthol (Topical Analgesic) (Biofreeze) 4 % Gel 1 APPLN TOP DAILY PRN for PRN FOR DISCOMFORT X 15 MIN. ADMINISTER PRIOR TO ROM EXERCISES Menthol-Methyl Salicylate (Juliette (Icy Hot Extra Strength) 1 Cre Cre 1 APPLN TOP PRN APPLY TO RIGHT UPPER ARM & ELBOW PRN Ondansetron Hcl (Zofran) 4 Mg Tab 4 MG PO QAM PRN for Nausea Oxycodone HCl (Oxycodone HCl) 5 Mg Tab 5 MG PO Q6H PRN for moderate-severe pain, #20 Polyethylene Glycol 3350 (Miralax) 1 Pow Pow 17 GM PO DAILY Ranitidine (Zantac) 150 Mg Tab 150 MG PO QAM Terbinafine Hcl (Topical) (Lamisil At Athletes Foot) 1 % Cre 1 APPLN TOP BID APPLY TO BILATERAL INNER ANKLES. 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 He was in the MTU for blood that was ordered per transfusion and was not responding to area staff. He received 1500 cc NS in the ER and blood was started with an improvement in blood pressure (initially in the 80s systolic), level of alertness and mental status. He reports feeling cold and weak in general, but otherwise has no symptoms. ROS reveals a recent episode of SOB at [facility] two nights ago with a fever and the patient reports chills. Denies headaches, sinus congestion, sore throat, cough, wheezing, chest pain, abdominal pain, nausea, vomiting, diarrhea, blood in stool, pain with urinating or changes in urination habits recently. He is wheelchair-bound at baseline and is somewhat stiff and difficult to move on exam today.He is in positive spirits and laughing with staff. First of two units of blood is currently infusing. In the ER, CXR is clear for acute process, H/H reveals 5.7/ 17, WBC 8, PLT 211. Of note, he has a chronic history of orthostatic hypotension and was on midodrine, which was stopped during his recent admission in December for syncope. The syncopal episode was thought 2/2 OH, however, despite being taken off his midodrine, his BP remained elevated and Norvasc was started as a new medication. He did not come in on this today, so presume this was stopped, which is appropriate given his current BP. Recent hematology visit to Dr. Person on 01/31. 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 More studies were drawn and pt has had no further contact with Oncology office at this point. Notable ferritin is >1000 and retic count is elevated. Physical Exam (per Admitting): General Appearance: WD/WN, no apparent distress Head: normocephalic, atraumatic Eyes: normal inspection, PERRL (pupils are equal and round bilaterally), sclerae normal ENT: hearing grossly normal Neck: trachea midline Respiratory/Chest: lungs clear, normal breath sounds, no respiratory distress, no accessory muscle use Cardiovascular: regular rate, rhythm, no edema, no JVD, no murmur Abdomen/GI: normal bowel sounds, non tender, soft, occult blood negative ( per ER physician) Back: + pertinent finding (gluteal stage II ulcerations-multiple in sacral area) Extremities/Musculoskelatal: + pertinent finding (tetraplegia, stiffness in extremities, feet pointed down) Neurologic/Psych: alert, normal mood/affect, oriented x 3 Skin: normal color, + pertinent finding (sacral ulcerations noted) Hospital Course 76 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 Overnight Vancomycin was started for empiric coverage of GPC in 1/2 blood cultures. He developed redness to the skin with a reported rash with infusion, which was stopped. The patient was given hydrocortisone and Benadryl. He was notable lethargic, tachycardic, febrile and hypotensive and was unable to swallow pills overnight 2/2 confusion. This morning rectal temp reveals 103F with BP 102/91, P100, R20, 96 % on 5L with oxymask. Tylenol was given and efforts were taken to reduce temp with ice, misting and a fan. On exam he appears lucid and is not complaining of a cough or any discomfort. He is tachycardic with a regular rhythm, clear lungs to auscultation, notably diaphoretic with erythematous skin with no rash or wheals seen on his skin. Erythema extends down his anterior chest to his knees. Urine culture is growing Provendencia and blood cultures have not speciated. Repeat BCx were drawn, and CXR reveals atelectasis on the L base. Lactate was 3.0 and creatinine was worse this morning. IVF were running at 125mls/hr overnight and initially were stopped until respiratory status could be assessed. Small 500mls bolus given over 4 hours and will trend lactate. ( repeat was 2.0) Working diagnosis includes but is not limited to drug reaction vs evolving sepsis vs transfusion reaction. ID consult placed for assistance. Antibiotics were broadened to Daptomycin, Aztreonam (amox allergy) and Levaquin (for pulmonary coverage of GPCs--h/o MRSA-- and double GN coverage as pt lives in a [facility] and at higher risk for pseudomonas). Clinically improved in one half day, fever broke and lactate came down with IVF. It has been two days and he has been clinically stable. IV abx changed to Cipro PO on 02/13 for total 7 days (incl abx given here) for UTI. Still need to see renal improvement but patient is crying to go home and doesn't want anymore needlesticks or anything to be done. Pt's nephew is a PA here and knows his uncle and how he is. He agrees with am labs to monitor kidney function and then get things moving toward discharge as fast as possible. 1. Sepsis vs drug reaction vs transfusion reaction-poss sources include Providencia UTI vs ?bacteremia, administration of vancomycin (most likely with immediate reaction during transfusion of the medication) vs transfusion reaction (pt has h/o MDS vs AML and was given blood transfusion on 02/09; correction of old notes, he was given LR blood). Pt is resuscitated, has been afebrile for 24 hours and is clinically improved. Abx narrowed to Cipro x 7 days for UTI. 2. Hypoxia-etiologies include but not limited to exhaustion from febrile state (cerebral palsy patient notably confused and lethargic overnight on 02/10) vs HAP. CXR reveals atelectasis vs HAP. Clinically improved and weaned off oxygen supplementation as of 02/12. Hypoxia appears resolved. Denies coughing, chills and no fevers noted overnight. 3. Anemia-likely 2/2 underlying hematologic process which is still under investigation-?MDS. Improved after transfusion. Hematology consult-decided against bone marrow biopsy in house. Cont to monitor. Per Dr. Person, patient will need weekly CBC with diff upon discharge with results sent to his office. Pt is stating that he doesn't want any of this. 4. JULITA-received IVF in ER and urine studies were ordered. Improved slightly after volume given. UTI present, empirically placed on Rocephin pending cultures. With broadening of abx to include aztreonam, ceftriaxone was discontinued. Of note, pat stated he had fever a few days back and he has urinary incontinence at baseline. Urination appeared to be less frequent per nurses. Tried to pass Puentes unsuccessful. Required Urology to pass Puentes through a urethral stricture (required bedside urethral dilation). Puentes to remain in place for 2 weeks and patient needs to be seen as outpatient in Urology clinic. Initially thought to be part of his JULITA issue, however, renal has not improved this morning after placement of Puentes yesterday. Placed Nephro consult. Cont to monitor with Puentes in place. 5. Hypotension-chronic, was recently admitted in December for syncope thought 2/2 OH. As he was on midodrine, his BP went up and despite stopping this, BP remained elevated. He was sent out on Norvasc which is not present on his list of meds currently. BP 90s systolic at this time. No antihypertensives at this time. Stable. 6. Pressure ulcer(s) of the sacrum, stage II, POA-apprec wound care assistance with management. Pt will need outpatient wound care when discharged back to [facility] . 7. DMII-cont home Lantus 10 Units qHS and ISS/carb coverage, controlled. Adjust per protocol while NPO 6. h/o MRSA in sputum-contact precautions 7. Urethral stricture s/p dilation this admission with Puentes placement-denies pain. UOP appears to have picked up. Will need outpatient Urology follow-up in 1-2 weeks for TOV. DVT proph-SCDs DNR-confirmed with patient and documented discussion with medical personnel at [facility] (Bertram Iniguez PA-C). Dispo-pt expressed in sobbing tears that he wants to go back to [facility]. He verbalized that he doesn't care about tests and diagnoses and he just wants to go. This was in front of his POA and nephew, Faraz, who agrees we need to set up transport. Abx changed to PO tonight. No matter what renal function is in am, I would send him home with outpatient follow-up of kidney function with Puentes in place. Pt needs to go home as stated. Minimize excessive vitals, needlesticks, etc. t Consultants: ID Hematology Nephro Total time spent on discharge = 40 minutes This includes examination of the patient, discharge planning, medication reconciliation, and communication with other providers. Discharge Instructions Discharge Instructions Date of Service Feb 14, 2017. Admission Reason for Admission: Symptomatic Anemia Discharge Discharge Diagnosis / Problem: UTI, Acute Kidney injury, Urethral stricture s/ p dilation, Hypotension Discharge Goals Goal(s): Decrease discomfort, Improve function, Improve disease control Activity Recommendations Activity Limitations: resume your previous activity (as tolerated) . Instructions / Follow-Up Instructions / Follow-Up Discharge to [facility] check BMP in 1 week to monitor renal function Follow up with urology in 1 -2 weeks Continue Puentes cath for about 10-14 days Check CBC in 1 week, please send result to Dr. Person office Monitor Blood Pressure and can start amlodipine if BP elevates (start with a lower dose and titrate) Complete antibiotic course Continue daily wound care, follow up with wound care Fall precaution Current Hospital Diet Patient's current hospital diet: AHA Diet (Heart Healthy), Diabetes Type 2 Diet Discharge Diet Recommended Diet: AHA Diet (Heart Healthy), Diabetes Type 2 Diet Pending Studies Studies pending at discharge: no Laboratory Results Hemoglobin A1c Test 02/10/17 06:00 Range/Units Estimated Average Glucose 169 mg/dl Hemoglobin A1c 7.5 H 4.5-5.6 % Medical Emergencies . Who to Call and When: Medical Emergencies: If at any time you feel your situation is an emergency, please call 911 immediately. . Non-Emergent Contact Non-Emergency issues call your: Primary Care Provider Call Non-Emergent contact if: you have a fever, you have any medication questions . . "Provider Documentation" section prepared by Juany Barroso. . VTE Core Measure Inpt VTE Proph given/why not?: SCD's, Contraindicated Additional Copies To Geo Varela M.D.
[2017-04-01] MEDS ORDERED: TIZA4CAP PO (08:57)
[2017-04-01] MEDS ORDERED: OXYC1TAB3 PO (08:57)
[2017-04-01] MEDS ORDERED: AMB5 PO (08:57)
[2017-04-01] MEDS ORDERED: SULF800T23 PO (08:57)
== END 2017-02-14 18:25 | DRG 811 ==
LOC: C.EDB 07:48 → C.2E 09:54 → EDBEDREQ 10:09 → ENRESERV 10:38 → C.MS2W 02-10 12:45 → C.4E 02-10 16:39 → ENRESERV 02-11 09:08 → C.2T 02-11 09:30
PROVIDERS: ADMIT Hospitalist; ATTEND Internal Medicine
DX: D64.9 Anemia, unspecified (principal); G82.50 Quadriplegia, unspecified; G93.40 Encephalopathy, unspecified; N17.0 Acute kidney failure with tubular necrosis; Z86.14 Personal history of Methicillin resistant Staphylococcus aureus infection; N18.3 Chronic kidney disease, stage 3 (moderate); F17.200 Nicotine dependence, unspecified, uncomplicated; I95.9 Hypotension, unspecified; L89.152 Pressure ulcer of sacral region, stage 2; D46.9 Myelodysplastic syndrome, unspecified; N35.9 Urethral stricture, unspecified; N31.8 Other neuromuscular dysfunction of bladder; Z86.73 Personal history of transient ischemic attack (TIA), and cerebral infarction without residual deficits; R09.02 Hypoxemia

== ENCOUNTER 2017-03-26 10:03 | Inpatient (IN) | payer OTHER ==
[2017-03-26] VITALS (16 sets, daily range): BP systolic 54–142; BP diastolic 34–80; PULSE 67–121; TEMP 36.7–39; O2SAT 91–100; Ht 165.1 cm; Wt 90.0 kg
[~2017-03-26] VITALS: Ht 165.1 cm; Wt 90.0 kg
[~2017-03-26 10:03] MED LIST changes: -BISA10SU3 PR; +CPR500 PO; -NRV5 PO; -NYSCR30 EXT; +OXGN; +TERB1CRE10 TOP; -TRMCR130WC TOP; -WOUN1PAD TOP
[2017-03-26] MEDS ORDERED: SODIUM CHLORIDE 0.9% 1000ML 2,000 ML IV STA (10:37)
[2017-03-26] MEDS ORDERED: GAUZ1PAD TOP (10:38)
[2017-03-26] MEDS ORDERED: BISA10SU5 PR (10:38)
[2017-03-26] MEDS ORDERED: TRMCR515 TOP (10:38)
[2017-03-26] MEDS ORDERED: SODIENE PR (10:38)
[2017-03-26] MEDS ORDERED: OXYC1TAB3 PO (10:42)
[2017-03-26 11:26] LABS: ISTAT CREATININE 2.8 mg/dl (0.6-1.3); ISTAT HEMOGLOBIN 6.5 g/dl (14.0-18.0); ISTAT IONIZED CALCIUM 1.05 mmol/l (1.12-1.32)
[2017-03-26 11:26] LABS: INR 1.2 (0.9-1.1); PROTHROMBIN TIME (PATIENT) 12.7 SECONDS (9.0-12.0)
--- NOTE | 2017-03-26 11:33 | DIAGNOSTIC IMAGING REPORT ---
CHEST ONE VIEW PORTABLE CLINICAL HISTORY: fever dyspnea COMPARISON STUDY: 02/11/2017 FINDINGS: Small parenchymal infiltrate medial left base. Lungs otherwise appear clear. Mild stable cardiomegaly. IMPRESSION: Small parenchymal infiltrate medial aspect left base. The above report was generated using voice recognition software. It may contain grammatical, syntax or spelling errors. Electronically signed by: Jacinto Tierney M.D. 03/26/2017 11:32 AM Dictated Date/Time: 03/26/2017 11:31 AM
[2017-03-26 11:34] LABS: MEAN CELL VOLUME 106.9 fL (80-100); MEAN CORPUSCULAR HEMOGLOBIN 35.2 pg (25-34); MEAN CORPUSCULAR HGB CONC 32.9 g/dl (32-36); MEAN PLATELET VOLUME 11.6 fL (7.4-10.4); PLATELET COUNT 225 K/uL (130-400); RED BLOOD COUNT 1.59 M/uL (4.7-6.1)
[2017-03-26 11:37] LABS: ALT/SGPT 11 U/L (12-78); BLOOD UREA NITROGEN 29 mg/dl (7-18); BUN/CREATININE RATIO 11.1 (10-20); CALCIUM 7.7 mg/dl (8.5-10.1); CARBON DIOXIDE 24 mmol/L (21-32); CHLORIDE 100 mmol/L (98-107); GLUCOSE 200 mg/dl (70-99); MAGNESIUM 2.1 mg/dl (1.8-2.4); POTASSIUM 4.4 mmol/L (3.5-5.1); SODIUM 135 mmol/L (136-145)
[2017-03-26 11:42] LABS: ALKALINE PHOSPHATASE 70 U/L (45-117); AST/SGOT 11 U/L (15-37); CKMB/CK RATIO 4.6 (0-3.0)
[2017-03-26 11:56] LABS: ROULEAUX 2+
[2017-03-26 12:05] LABS: BASO ABS # 0.39 K/uL (0-0.2); BASOPHIL % 3.5 % (0-2); COMPLETE YES; EOSINOPHIL % 4.3 %; LYMPH ABS # 4.29 K/uL (1.2-3.4); LYMPHOCYTE % 38.3 %
[2017-03-26] MEDS ORDERED: CEFEPIME IV 1,000 MG in DEXTROSE 5% 100ML 100 ML IV STA ×2 (12:11→21:41)
[2017-03-26] MEDS ORDERED: LEVAQUIN 500MG / 100ML D5W IV ONE (12:15)
--- NOTE | 2017-03-26 13:19 | DIAGNOSTIC IMAGING REPORT ---
HEAD WITHOUT CONTRAST (CT) CT DOSE: 2123.77 mGy.cm HISTORY: Mental status change TECHNIQUE: Multiaxial CT images of the head were performed without the use of intravenous contrast. A dose lowering technique was utilized adhering to the principles of ALARA. Comparison: 01/19/2017 Findings: Mild mucosal thickening of the ethmoid and sphenoid sinuses. The calvarium and skull base are intact. The ventricles and sulci are within normal limits. There is no mass, hematoma, midline shift, or acute infarct. Mild changes of chronic small vessel change and atrophy of aging. Impression: 1. Age-related change. 2. No acute intracranial abnormality. 3. Mild mucosal thickening of the ethmoid and sphenoid sinuses. The above report was generated using voice recognition software. It may contain grammatical, syntax or spelling errors. Electronically signed by: Jacinto Tierney M.D. 03/26/2017 1:17 PM Dictated Date/Time: 03/26/2017 1:16 PM
--- NOTE | 2017-03-26 13:25 | DIAGNOSTIC IMAGING REPORT ---
ABD/PELVIS NO IV OR ORAL CONT CT DOSE: HISTORY: Mental status change. Pain. ams TECHNIQUE: Multiaxial CT images of the abdomen and pelvis were performed without contrast. A dose lowering technique was utilized adhering to the principles of ALARA. COMPARISON STUDY: None. FINDINGS: Mild bibasilar interstitial change. Minimal parenchymal infiltrative change left base. The liver spleen and pancreas are uniform. Gallstones are present within the gallbladder neck. Several small renal calcifications are present at these appear to be nonobstructing cortical calcification. Minimal infiltrative change of the perinephric fat bilaterally most likely age-related. Bowel pattern is considered nonobstructive. Bladder is midline. There are no contained calcifications. Mild fecal material within the rectosigmoid. Considerable degenerative change of lumbar spine. IMPRESSION: 1. Multiple gallstones within the region of the gallbladder neck. 2. Several small nonobstructing renal calcifications. 3.. Mild left and to a lesser extent right basilar infiltrative/interstitial change. 4. Otherwise negative study. 5. Considerable degenerative changes lumbar spine. The above report was generated using voice recognition software. It may contain grammatical, syntax or spelling errors. Electronically signed by: Jacinto Tierney M.D. 03/26/2017 1:23 PM Dictated Date/Time: 03/26/2017 1:17 PM
[2017-03-26] MEDS ORDERED: GLUCOSE 10 TABS/TUBE PO PRN (14:00)
[2017-03-26] MEDS ORDERED: POLYETHYLENE (MIRALAX) 17 GM PACK PO PRN (14:00)
[2017-03-26] MEDS ORDERED: GLUCAGON FOR INJ 1 MG VIAL SQ PRN (14:00)
[2017-03-26] MEDS ORDERED: GLUCOSE 40% GEL 15 GM TUBE PO PRN (14:00)
[2017-03-26] MEDS ORDERED: DEXTROSE 50% 50 ML SYR IV PRN (14:00)
[2017-03-26] MEDS ORDERED: ONDANSETRON INJ 2 MG/ML 2 ML VIAL IV PRN (14:00)
--- NOTE | 2017-03-26 15:01 | EMERGENCY ROOM VISIT NOTE ---
History Report prepared by Scribe: Patricia Moser Under the Supervision of: Dr. Young Nova D.O. First contact with patient: 10:26 Chief Complaint: ALTERED MENTAL STATUS Stated Complaint: ALOC Nursing Triage Summary: Pt arrives via ALS from [facility]. Pt with a change in mental status, had a hemoglobin of 6.8 on recent lab work and refused to come to the hospital. Pt's 90-year-old mother made the pt come to the ER. 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 EMS state that the pt is DNR, call made by [facility] staff, no DNR for the patient, no POLST. History of Present Illness The patient is a 76 year old male who presents to the Emergency Room with complaints of an altered mental status. He was brought to the ED via ALS from [facility]. EMS reports the patient had a Hemoglobin of 6.8 on March 22, but refused a transfusion. Earlier today, he became increasingly weak, lethargic and displayed a 10 second period of apnea. His BSG pre-hospital was 148. The patient states he does not "feel good" currently. He is agreeable to a blood transfusion today. His last BM was yesterday and normal. He denies any swelling of his legs. He does not take daily blood thinners. He also denies any recent headache, change in vision, fevers, chest pain, shortness of breath, nausea, vomiting, diarrhea, pain with urination. He admits that he is a DO NOT RESUSCITATE/DO NOT INTUBATE. Source of History: patient, EMS Onset: TRUST ADVISOR Position: other (global) Timing: constant Associated Symptoms: + weakness, No fevers, No headache, No chest pain, No SOB, No nausea, No vomiting, No melena, No diarrhea, No urinary symptoms Review of Systems See HPI for pertinent positives & negatives. A total of 10 systems reviewed and were otherwise negative. Past Medical & Surgical Medical Problems: (1) Anemia (2) Cerebral palsy (3) CKD (chronic kidney disease) stage 3, GFR 30-59 ml/min (4) DMII (diabetes mellitus, type 2) (5) Fever (6) Symptomatic anemia (7) Syncope Family History No pertinent family history Social History Smoking Status: Former Smoker Alcohol Use: none Drug Use: none Marital Status: [facility] Status[facility] Occupation Status: disabled Current/Historical Medications Scheduled Aspirin (Aspirin), 81 MG PO DAILY Gabapentin (Neurontin), 200 MG PO AMPM Gabapentin (Neurontin), 100 MG PO NOON Home O2 Therapy (Oxygen), 2-4 LITERS NA PRN Ketoconazole (Topical) (Ketoconazole), 1 APPLN TOP 2XWK Menthol-Methyl Salicylate (Juliette (Icy Hot Extra Strength), 1 APPLN TOP PRN Polyethylene Glycol 3350 (Miralax), 17 GM PO DAILY Ranitidine (Zantac), 150 MG PO BID Tizanidine (Zanaflex), 4 MG PO TID Triamcinolone Acet (Triamcinolone Acetonide), 1 APPLN TOP BID Scheduled PRN Acetaminophen Tab (Tylenol), 650 MG PO Q4 PRN for Fever Bisacodyl (Bisacodyl), 1 SUPP LA UD PRN for if no bm x 5 daysa and mom ine Camphor & Menthol (Men-Phor), 1 APPLN TOP Q2H PRN for Itching Ipratropium-Albuterol (Duoneb), 1 TREATMENT INH Q4H PRN for Wheezing Menthol (Mouth-Throat) (Bradley Cough Drops), 1 DROP PO Q2 PRN for COUGH/SORE THROAT Oxycodone Ir (Roxicodone Ir), 5 MG PO Q6H PRN for MOD/SVRpain Sodium Phosphate/Biphosphate (Fleet Enema), 1 EA LA UD PRN for no bm x 6 days and dulcolax in Durable Medical Equipment Gauze Pads & Dressings (Allevyn Thin 4"X4"), TOP UD Allergies Coded Allergies: Vancomycin (Verified Allergy, Severe, RASH, 02/11/17) Amoxicillin (Verified Allergy, Mild, RASH HEAD TO TOE, 01/19/17) Head to Toe Rash Clavulanic Acid (Verified Allergy, Mild, RASH HEAD TO TOE, 01/19/17) Head to Toe Rash Physical Exam Vital Signs Date Time Temp Pulse Resp B/P (MAP) Pulse Ox O2 Delivery O2 Flow Rate FiO2 03/26/17 14:39 36.7 80 17 116/70 97 03/26/17 14:24 36.7 77 16 115/65 99 03/26/17 14:09 36.7 72 16 101/63 96 03/26/17 13:41 36.7 70 16 108/73 97 03/26/17 13:39 71 16 108/73 98 03/26/17 13:37 72 03/26/17 13:09 36.8 69 16 105/59 98 03/26/17 12:54 36.8 68 18 102/69 95 03/26/17 12:54 102/69 03/26/17 12:46 107/65 03/26/17 12:45 67 18 95 03/26/17 12:39 36.7 68 18 104/67 95 03/26/17 12:39 104/67 03/26/17 12:31 102/66 03/26/17 12:30 67 17 95 03/26/17 12:24 36.7 67 14 98/64 97 03/26/17 12:22 98/64 03/26/17 12:18 100/63 03/26/17 12:16 98/65 03/26/17 12:15 66 15 94 03/26/17 12:07 92/64 03/26/17 12:01 97/69 03/26/17 12:00 66 14 95 03/26/17 11:46 96/63 03/26/17 11:45 66 18 94 03/26/17 11:31 95/59 03/26/17 11:30 68 16 92 03/26/17 11:30 67 16 85/56 94 Room Air 03/26/17 11:00 68 16 80/47 96 Room Air 03/26/17 10:16 96 Room Air 03/26/17 10:16 36.8 67 20 89/53 96 Room Air 03/26/17 10:10 69 Physical Exam GENERAL: Patient is alert, ill-appearing, sitting up in bed, disheveled and lethargic EYE EXAM: normal conjunctiva, PERRL and EOM's grossly intact OROPHARYNX: no exudate, no erythema, lips, buccal mucosa, and tongue normal and mucous membranes are moist NECK: supple, no nuchal rigidity, no adenopathy, non-tender LUNGS: Clear to auscultation. Normal chest wall mechanics HEART: Heart sounds are distant, no murmurs, S1 normal and S2 normal ABDOMEN: abdomen soft, distended, non-tender, normo-active bowel sounds, no masses, no rebound or guarding. UPPER EXTREMITIES: upper extremities are grossly normal. LOWER EXTREMITIES: No pitting edema. NEURO EXAM: Alert and oriented to person place and time, cranial nerves II-XII intact, normal speech, no weakness of arms, no weakness of legs. Gross sensation intact. Right upper extremity weakness with flexion in the shoulder and grasp, which is older per patient. Left upper and bilateral left lower extremities, strength is equal. Medical Decision & Procedures ER Provider Diagnostic Interpretation: Radiology results as stated below per my review and the radiologist's interpretation: ABD/PELVIS NO IV OR ORAL CONT CT DOSE: HISTORY: Mental status change. Pain. ams TECHNIQUE: Multiaxial CT images of the abdomen and pelvis were performed without contrast. A dose lowering technique was utilized adhering to the principles of ALARA. COMPARISON STUDY: None. FINDINGS: Mild bibasilar interstitial change. Minimal parenchymal infiltrative change left base. The liver spleen and pancreas are uniform. Gallstones are present within the gallbladder neck. Several small renal calcifications are present at these appear to be nonobstructing cortical calcification. Minimal infiltrative change of the perinephric fat bilaterally most likely age-related. Bowel pattern is considered nonobstructive. Bladder is midline. There are no contained calcifications. Mild fecal material within the rectosigmoid. Considerable degenerative change of lumbar spine. IMPRESSION: 1. Multiple gallstones within the region of the gallbladder neck. 2. Several small nonobstructing renal calcifications. 3.. Mild left and to a lesser extent right basilar infiltrative/interstitial change. 4. Otherwise negative study. 5. Considerable degenerative changes lumbar spine. The above report was generated using voice recognition software. It may contain grammatical, syntax or spelling errors. Electronically signed by: Jacinto Tierney M.D. 03/26/2017 1:23 PM HEAD WITHOUT CONTRAST (CT) CT DOSE: 2123.77 mGy.cm HISTORY: Mental status change TECHNIQUE: Multiaxial CT images of the head were performed without the use of intravenous contrast. A dose lowering technique was utilized adhering to the principles of ALARA. Comparison: 01/19/2017 Findings: Mild mucosal thickening of the ethmoid and sphenoid sinuses. The calvarium and skull base are intact. The ventricles and sulci are within normal limits. There is no mass, hematoma, midline shift, or acute infarct. Mild changes of chronic small vessel change and atrophy of aging. Impression: 1. Age-related change. 2. No acute intracranial abnormality. 3. Mild mucosal thickening of the ethmoid and sphenoid sinuses. The above report was generated using voice recognition software. It may contain grammatical, syntax or spelling errors. Electronically signed by: Jacinto Tierney M.D. 03/26/2017 1:17 PM CHEST ONE VIEW PORTABLE CLINICAL HISTORY: fever dyspnea COMPARISON STUDY: 02/11/2017 FINDINGS: Small parenchymal infiltrate medial left base. Lungs otherwise appear clear. Mild stable cardiomegaly. IMPRESSION: Small parenchymal infiltrate medial aspect left base. The above report was generated using voice recognition software. It may contain grammatical, syntax or spelling errors. Electronically signed by: Jacinto Tierney M.D. 03/26/2017 11:32 AM Laboratory Results 03/26/17 11:00 Red Blood Count 1.59, Mean Corpuscular Volume 106.9, Mean Corpuscular Hemoglobin 35.2, Mean Corpuscular Hemoglobin Concent 32.9, Mean Platelet Volume 11.6 03/26/17 11:00 Test 03/26/17 10:14 03/26/17 11:00 03/26/17 11:08 03/26/17 11:19 Bedside Glucose 222 mg/dl (70-99) White Blood Count 11.20 K/uL (4.8-10.8) Red Blood Count 1.59 M/uL (4.7-6.1) Hemoglobin 5.6 g/dL (14.0-18.0) Hematocrit 17.0 % (42-52) Mean Corpuscular Volume 106.9 fL (80-100) Mean Corpuscular Hemoglobin 35.2 pg (25-34) Mean Corpuscular Hemoglobin Concent 32.9 g/dl (32-36) Platelet Count 225 K/uL (130-400) Mean Platelet Volume 11.6 fL (7.4-10.4) RDW Standard Deviation 85.7 fL (36.4-46.3) RDW Coefficient of Variation 24.0 % (11.5-14.5) Nucleated RBC Absolute Count (auto) 0.08 K/uL (0-0) Neutrophils % (Manual) 7.0 % Lymphocytes % (Manual) 38.3 % Monocytes % (Manual) 41.7 % Eosinophils % (Manual) 4.3 % Basophils % (Manual) 3.5 % (0-2) Blast Cells % 5.2 % Nucleated Red Blood Cells % 0.7 % Neutrophils # (Manual) 0.78 K/uL (1.4-6.5) Total Absolute Neutrophils 0.78 K/uL (1.4-6.5) Lymphocytes # (Manual) 4.29 K/uL (1.2-3.4) Total Absolute Lymphocytes 4.29 K/uL (1.2-3.4) Monocytes # (Manual) 4.67 K/uL (0.11-0.59) Eosinophils # (Manual) 0.48 K/uL (0-0.5) Basophils # (Manual) 0.39 K/uL (0-0.2) Blast Cells # 0.58 K/uL (0-0) Rouleau 2+ Prothrombin Time 12.7 SECONDS (9.0-12.0) Prothromb Time International Ratio 1.2 (0.9-1.1) Estimated GFR () 26.9 Estimated GFR (Non- 23.3 BUN/Creatinine Ratio 11.1 (10-20) Calcium Level 7.7 mg/dl (8.5-10.1) Magnesium Level 2.1 mg/dl (1.8-2.4) Total Bilirubin 0.3 mg/dl (0.2-1) Direct Bilirubin < 0.1 mg/dl (0-0.2) Aspartate Amino Transf (AST/SGOT) 11 U/L (15-37) Alanine Aminotransferase (ALT/SGPT) 11 U/L (12-78) Alkaline Phosphatase 70 U/L (45-117) Total Creatine Kinase 28 U/L (39-308) Creatine Kinase MB 1.3 ng/ml (0.5-3.6) Creatine Kinase MB Ratio 4.6 (0-3.0) Troponin I < 0.015 ng/ml (0-0.045) Total Protein 8.3 gm/dl (6.4-8.2) Albumin 2.2 gm/dl (3.4-5.0) Bedside Hemoglobin 6.5 g/dl (14.0-18.0) Bedside Hematocrit 19 % (42-52) Bedside Sodium 136 mEq/L (135-144) Bedside Potassium 4.4 mEq/L (3.3-5.0) Bedside Chloride 99 mEq/L (101-112) Bedside Total CO2 24 mEq/l (24-31) Anion Gap 19.0 mmol/L (16-25) Bedside Blood Urea Nitrogen 29 mg/dl (7-18) Bedside Creatinine 2.8 mg/dl (0.6-1.3) Bedside Glucose (other) 206 mg/dl (70-99) Bedside Ionized Calcium (Olga Lidia) 1.05 mmol/l (1.12-1.32) Bedside Lactic Acid Venous 2.43 mmol/L (0.90-1.70) Laboratory results per my review. Medications Administered Medications (Trade) Dose Ordered Sig/Lucille Route Start Time Stop Time Status Last Admin Dose Admin Sodium Chloride 2,000 ml @ 999 mls/hr Q2H1M STAT IV 03/26/17 10:37 03/26/17 12:37 DC 03/26/17 10:49 999 MLS/HR Cefepime HCl 1000 mg/Dextrose 111.3 ml @ 200 mls/hr NOW STAT IV 03/26/17 12:11 03/26/17 12:44 DC 03/26/17 13:22 200 MLS/HR Levofloxacin (Levaquin / D5W) 500 mg NOW ONCE IV 03/26/17 12:15 03/26/17 12:16 DC 03/26/17 13:53 500 MG ECG Indication: altered mental status Rate (beats per minute): 67 Rhythm: sinus rhythm Findings: no ectopy, other (normal axis) ED Course ED COURSE: Vital signs were reviewed and showed the patient is hypotensive. The patients medical record was reviewed The above diagnostic studies were performed and reviewed. ED treatments and interventions as stated above. 1032: The patient was evaluated in room B6. A complete history and physical examination was performed. 1037: NSS 2000 ml @ 999 mls/hr IV. 1127: 1 IV has been placed in the patient. IV team is coming to place another. 1153: I reevaluated the patient. IV team is in the room. His BP is in the 90's. 1205: The patient has consented to a blood transfusion and signed the agreement paperwork. 1211: Cefepime HCl 1000 mg/Dextrose 111.3 ml @ 200 mls/hr IV. 1215: Levaquin 500 mg IV. 1300: Upon reevaluation, the patient is resting comfortably. I discussed my findings with the patient and he understands and agrees with the treatment plan. 1335: I discussed the patients case with Twan Valero. The patient will be further evaluated. Based on the patients age, coexisting illnesses, exam and lab findings the decision to treat as an inpatient was made. The patient remained stable while under my care. The patient will be evaluated for further management. Medical Decision Differential diagnoses includes but is not limited to toxic, metabolic, infectious, traumatic, cardiac, neurologic, hematologic, psychiatric and inflammatory etiologies. Patient is a 76-year-old male that presents to ER for weakness associated with altered mental status and hypotension. Upon arrival patient is lethargic but able to answer questions appropriately. He is a DO NOT RESUSCITATE/DO NOT RESUSCITATE. Hemoglobin is 5.6. Patient was hypotensive with systolic blood pressures in the 80s initially. 2 IVs were established. He is given 2 L normal saline. Creatinine is elevated at 2.6 although her baseline of 2. 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 He is pancytopenic. Chest x-ray supports pneumonia. CT head and abdomen confirmed pneumonia. Patient was covered with IV antibiotics including cefepime and Levaquin. He is admitted to internal medicine with symptomatically anemia and pneumonia. He was transfused PRBCs while in the ER. Blood consent was obtained here. He was amenable to all interventions with the exception of CPR and intubation. Systolic blood pressures did improve to the low 100s from the 80s following 2 L normal saline and PRBCs. Medication Reconcilliation Current Medication List: was personally reviewed by wv Blood Pressure Screening Patient's blood pressure: Normal blood pressure Blood pressure disposition: Did not require urgent referral Consults Time Called: 1330 Consulting Physician: Twan Valero Returned Call: [phone] I discussed the patients case with Twan Valero. The patient will be further evaluated. Impression Primary Impression: Symptomatic anemia Additional Impression: Sepsis Critical Care I have personally spent 35 minutes of critical care time in the direct management of this patient. This includes bedside care, interpretation of diagnostic studies, and testing, discussion with consultants, patient, and family members, and other required patient management activities. This 35 minutes is in excess of all separately billable procedures. Scribe Attestation The scribe's documentation has been prepared under my direction and personally reviewed by me in its entirety. I confirm that the note above accurately reflects all work, treatment, procedures, and medical decision making performed by me. Departure Information Dispostion Being Evaluated By Hospitalist Geo Foote M.D. (PCP) Patient Instructions My [facility] Problem Qualifiers Additional Impression: Sepsis Sepsis type: sepsis due to unspecified organism Qualified Codes: A41.9 - Sepsis, unspecified organism
[2017-03-26] MEDS: INSULIN ASPART 100 UNITS/ML 3 ML PEN SC SCH ×2 (16:15→20:36)
[2017-03-26 17:02] LABS: HEMATOCRIT 25.3 % (42-52)
[2017-03-26] MEDS ORDERED: LEVOFLOXACIN CONSULT ACTIVE PRN (17:48)
[2017-03-26] MEDS ORDERED: CEFEPIME CONSULT ACTIVE PRN ×2 (18:00)
--- NOTE | 2017-03-26 19:42 | History and Physical ---
History & Physical Date & Time of Service: Mar 26, 2017 at 17:27 Chief Complaint: Symptomatic Anemia Primary Care Physician: Geo Varela M.D. History of Present Illness Source: patient, clinic records, hospital records The patient is a 76 yo M with permanent residence at [facility] who presents after worsening lethargy and an apneic episode which lasted 10 seconds per records. He was known to have an H/H 6.8/20.8 on 03/22 and the PA who regularly sees him over there had recommended that he come to the hospital, however, at that time the patient refused saying if he became symptomatic he promised to come in. 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 This patient has also wavered on his treatment status where he was recently declared comfort care only, but then wanted to still receive treatments such as antibiotics, blood transfusions and to be able to come to the hospital if needed. Therefore , he is not on Hospice at this point, but does state to me that he is a DNR which is in line with his code status on prior admission. In the ER, workup revealed neutropenia without fever, h/h /17, and a new infiltrate on the left base> r base. He admits to coughing and chills that just began today. He also admits to lightheadedness but no fever or chest pain. He states that his jaw hurts on the L side and this just began this morning. He reports constipation that is well treated with medication. He reports a slight headache. He denies palpitations, nausea, vomiting or bleeding. He reports that he has been eating well just not staying hydrated as much as he should. Past Medical/Surgical History Medical Problems: (1) Bone marrow disorder Status: Chronic (2) Cerebral palsy Status: Chronic (3) Chronic respiratory failure with hypoxia Status: Chronic (4) Chronic tetraplegia Status: Chronic (5) CKD (chronic kidney disease) stage 3, GFR 30-59 ml/min Status: Chronic (6) DMII (diabetes mellitus, type 2) Status: Chronic (7) GERD (gastroesophageal reflux disease) Status: Chronic (8) Hypothyroidism Status: Chronic Family History No pertinent family history Social History Smoking Status: Former Smoker Smokeless Tobacco Use: No Alcohol Use: none Drug Use: none Marital Status: Housing status: fdc 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 Status: disabled Immunizations History of Influenza Vaccine: Yes Influenza Vaccine Date: Jan 31, 2017 History of Tetanus Vaccine?: Unknown History of Pneumococcal: Unknown History of Hepatitis B Vaccine: Unknown Multi-Drug Resistant Organisms History of MDRO: Yes Type of MDRO: MRSA Allergies Coded Allergies: Vancomycin (Verified Allergy, Severe, RASH, 02/11/17) Amoxicillin (Verified Allergy, Mild, RASH HEAD TO TOE, 01/19/17) Head to Toe Rash Clavulanic Acid (Verified Allergy, Mild, RASH HEAD TO TOE, 01/19/17) Head to Toe Rash Home Medications Scheduled Aspirin (Aspirin), 81 MG PO DAILY Gabapentin (Neurontin), 200 MG PO AMPM Gabapentin (Neurontin), 100 MG PO NOON Home O2 Therapy (Oxygen), 2-4 LITERS NA PRN Insulin Glargine (Lantus Solostar), 10 UNITS SQ HS Ketoconazole (Topical) (Ketoconazole), 1 APPLN TOP 2XWK Lansoprazole (Prevacid), 1 CAP PO DAILY Levothyroxine Sodium (Levothyroxine Sodium), 1 TAB PO DAILY Menthol-Methyl Salicylate (Juliette (Icy Hot Extra Strength), 1 APPLN TOP PRN Polyethylene Glycol 3350 (Miralax), 17 GM PO DAILY Ranitidine (Zantac), 150 MG PO BID Tizanidine (Zanaflex), 4 MG PO TID Triamcinolone Acet (Triamcinolone Acetonide), 1 APPLN TOP BID Scheduled PRN Acetaminophen Tab (Tylenol), 650 MG PO Q4 PRN for Fever Bisacodyl (Bisacodyl), 1 SUPP CO UD PRN for if no bm x 5 daysa and mom ine Camphor & Menthol (Men-Phor), 1 APPLN TOP Q2H PRN for Itching Ipratropium-Albuterol (Duoneb), 1 TREATMENT INH Q4H PRN for Wheezing Menthol (Mouth-Throat) ([place] Cough Drops), 1 DROP PO Q2 PRN for COUGH/SORE THROAT Ondansetron Hcl (Zofran), 1 TAB PO DAILY PRN for Nausea or Vomiting Oxycodone Ir (Roxicodone Ir), 5 MG PO Q6H PRN for MOD/SVRpain Sodium Phosphate/Biphosphate (Fleet Enema), 1 EA CO UD PRN for no bm x 6 days and dulcolax in Zolpidem Tartrate (Zolpidem Tartrate), 5 MG PO HS PRN for Insomnia Review of Systems At least ten systems were reviewed and negative except as indicated in HPI. Physical Exam Vital Signs Date Time Temp Pulse Resp B/P (MAP) Pulse Ox O2 Delivery O2 Flow Rate FiO2 03/26/17 15:15 37.4 78 16 131/74 100 Nasal Cannula 2.0 03/26/17 15:01 131/80 03/26/17 14:54 75 20 96 03/26/17 14:54 36.9 79 19 131/80 96 03/26/17 14:50 116/70 03/26/17 14:39 36.7 80 17 116/70 97 03/26/17 14:39 84 20 03/26/17 14:31 110/85 03/26/17 14:25 115/65 03/26/17 14:24 36.7 77 16 115/65 99 03/26/17 14:24 77 18 100 03/26/17 14:17 113/53 03/26/17 14:10 101/63 03/26/17 14:09 73 19 94 03/26/17 14:09 36.7 72 16 101/63 96 03/26/17 14:06 104/67 03/26/17 14:01 118/68 03/26/17 13:54 72 17 96 03/26/17 13:46 115/66 03/26/17 13:41 36.7 70 16 108/73 97 03/26/17 13:39 71 15 97 03/26/17 13:39 71 16 108/73 98 03/26/17 13:37 72 03/26/17 13:09 36.8 69 16 105/59 98 03/26/17 12:54 36.8 68 18 102/69 95 03/26/17 12:54 102/69 03/26/17 12:46 107/65 03/26/17 12:45 67 18 95 03/26/17 12:39 36.7 68 18 104/67 95 03/26/17 12:39 104/67 03/26/17 12:31 102/66 03/26/17 12:30 67 17 95 03/26/17 12:24 36.7 67 14 98/64 97 03/26/17 12:22 98/64 03/26/17 12:18 100/63 03/26/17 12:16 98/65 03/26/17 12:15 66 15 94 03/26/17 12:07 92/64 03/26/17 12:01 97/69 03/26/17 12:00 66 14 95 03/26/17 11:46 96/63 03/26/17 11:45 66 18 94 03/26/17 11:31 95/59 03/26/17 11:30 68 16 92 03/26/17 11:30 67 16 85/56 94 Room Air 03/26/17 11:00 68 16 80/47 96 Room Air 03/26/17 10:16 96 Room Air 03/26/17 10:16 36.8 67 20 89/53 96 Room Air 03/26/17 10:10 69 General Appearance: WD/WN, no apparent distress, + pertinent finding (cerebral palsy with tetraplegia) Head: normocephalic, atraumatic Eyes: normal inspection, sclerae normal Neck: supple, trachea midline Respiratory/Chest: lungs clear, normal breath sounds, no respiratory distress, no accessory muscle use Cardiovascular: regular rate, rhythm, no edema, no gallop, no JVD, no murmur, normal peripheral pulses Abdomen/GI: normal bowel sounds, non tender, soft Back: normal inspection Extremities/Musculoskelatal: + pertinent finding (partial paralysis of limbs- at his baseline) Neurologic/Psych: alert, normal mood/affect, oriented x 3, + pertinent finding (baseline motor deficits. ) Skin: normal color, warm/dry, no rash, + pertinent finding (per nurse report there is a pin-sized area of breakdown on his gluteal region, not an ulcer. I was unable to examine him because of his inabilities to move well/discomfort) Diagnostics Laboratory Results 03/26/17 11:00 Red Blood Count 1.59, Mean Corpuscular Volume 106.9, Mean Corpuscular Hemoglobin 35.2, Mean Corpuscular Hemoglobin Concent 32.9, Mean Platelet Volume 11.6 03/26/17 16:45 03/26/17 11:00 Test 03/26/17 11:00 03/26/17 11:08 03/26/17 11:19 03/26/17 16:27 White Blood Count 11.20 K/uL (4.8-10.8) Red Blood Count 1.59 M/uL (4.7-6.1) Hemoglobin 5.6 g/dL (14.0-18.0) Hematocrit 17.0 % (42-52) Mean Corpuscular Volume 106.9 fL (80-100) Mean Corpuscular Hemoglobin 35.2 pg (25-34) Mean Corpuscular Hemoglobin Concent 32.9 g/dl (32-36) Platelet Count 225 K/uL (130-400) Mean Platelet Volume 11.6 fL (7.4-10.4) RDW Standard Deviation 85.7 fL (36.4-46.3) RDW Coefficient of Variation 24.0 % (11.5-14.5) Nucleated RBC Absolute Count (auto) 0.08 K/uL (0-0) Neutrophils % (Manual) 7.0 % Lymphocytes % (Manual) 38.3 % Monocytes % (Manual) 41.7 % Eosinophils % (Manual) 4.3 % Basophils % (Manual) 3.5 % (0-2) Blast Cells % 5.2 % Nucleated Red Blood Cells % 0.7 % Neutrophils # (Manual) 0.78 K/uL (1.4-6.5) Total Absolute Neutrophils 0.78 K/uL (1.4-6.5) Lymphocytes # (Manual) 4.29 K/uL (1.2-3.4) Total Absolute Lymphocytes 4.29 K/uL (1.2-3.4) Monocytes # (Manual) 4.67 K/uL (0.11-0.59) Eosinophils # (Manual) 0.48 K/uL (0-0.5) Basophils # (Manual) 0.39 K/uL (0-0.2) Blast Cells # 0.58 K/uL (0-0) Rouleau 2+ Prothrombin Time 12.7 SECONDS (9.0-12.0) Prothromb Time International Ratio 1.2 (0.9-1.1) Estimated GFR () 26.9 Estimated GFR (Non- 23.3 BUN/Creatinine Ratio 11.1 (10-20) Calcium Level 7.7 mg/dl (8.5-10.1) Magnesium Level 2.1 mg/dl (1.8-2.4) Total Bilirubin 0.3 mg/dl (0.2-1) Direct Bilirubin < 0.1 mg/dl (0-0.2) Aspartate Amino Transf (AST/SGOT) 11 U/L (15-37) Alanine Aminotransferase (ALT/SGPT) 11 U/L (12-78) Alkaline Phosphatase 70 U/L (45-117) Total Creatine Kinase 28 U/L (39-308) Creatine Kinase MB 1.3 ng/ml (0.5-3.6) Creatine Kinase MB Ratio 4.6 (0-3.0) Troponin I < 0.015 ng/ml (0-0.045) Total Protein 8.3 gm/dl (6.4-8.2) Albumin 2.2 gm/dl (3.4-5.0) Bedside Hemoglobin 6.5 g/dl (14.0-18.0) Bedside Hematocrit 19 % (42-52) Bedside Sodium 136 mEq/L (135-144) Bedside Potassium 4.4 mEq/L (3.3-5.0) Bedside Chloride 99 mEq/L (101-112) Bedside Total CO2 24 mEq/l (24-31) Anion Gap 19.0 mmol/L (16-25) Bedside Blood Urea Nitrogen 29 mg/dl (7-18) Bedside Creatinine 2.8 mg/dl (0.6-1.3) Bedside Glucose (other) 206 mg/dl (70-99) Bedside Ionized Calcium (Olga Lidia) 1.05 mmol/l (1.12-1.32) Bedside Lactic Acid Venous 2.43 mmol/L (0.90-1.70) Bedside Glucose 125 mg/dl (70-99) Date/Time Source Procedure Growth Status 03/26/17 11:00 Blood Blood Culture Pending Received Results Past 24 Hours Test 03/26/17 10:14 03/26/17 11:00 03/26/17 11:08 03/26/17 11:19 Range/Units Bedside Glucose 222 70-99 mg/dl White Blood Count 11.20 4.8-10.8 K/uL Red Blood Count 1.59 4.7-6.1 M/uL Hemoglobin 5.6 14.0-18.0 g/dL Hematocrit 17.0 42-52 % Mean Corpuscular Volume 106.9 80-100 fL Mean Corpuscular Hemoglobin 35.2 25-34 pg Mean Corpuscular Hemoglobin Concent 32.9 32-36 g/dl Platelet Count 225 130-400 K/uL Mean Platelet Volume 11.6 7.4-10.4 fL RDW Standard Deviation 85.7 36.4-46.3 fL RDW Coefficient of Variation 24.0 11.5-14.5 % Nucleated RBC Absolute Count (auto) 0.08 0-0 K/uL Neutrophils % (Manual) 7.0 % Lymphocytes % (Manual) 38.3 % Monocytes % (Manual) 41.7 % Eosinophils % (Manual) 4.3 % Basophils % (Manual) 3.5 0-2 % Blast Cells % 5.2 % Nucleated Red Blood Cells % 0.7 % Neutrophils # (Manual) 0.78 1.4-6.5 K/uL Total Absolute Neutrophils 0.78 1.4-6.5 K/uL Lymphocytes # (Manual) 4.29 1.2-3.4 K/uL Total Absolute Lymphocytes 4.29 1.2-3.4 K/uL Monocytes # (Manual) 4.67 0.11-0.59 K/uL Eosinophils # (Manual) 0.48 0-0.5 K/uL Basophils # (Manual) 0.39 0-0.2 K/uL Blast Cells # 0.58 0-0 K/uL Rouleau 2+ Prothrombin Time 12.7 9.0-12.0 SECONDS Prothromb Time International Ratio 1.2 0.9-1.1 Sodium Level 135 136-145 mmol/L Potassium Level 4.4 3.5-5.1 mmol/L Chloride Level 100 98-107 mmol/L Carbon Dioxide Level 24 21-32 mmol/L Anion Gap 11.0 19.0 16-25 mmol/L Blood Urea Nitrogen 29 7-18 mg/dl Creatinine 2.60 0.60-1.40 mg/dl Estimated GFR () 26.9 Estimated GFR (Non- 23.3 BUN/Creatinine Ratio 11.1 10-20 Random Glucose 200 70-99 mg/dl Calcium Level 7.7 8.5-10.1 mg/dl Magnesium Level 2.1 1.8-2.4 mg/dl Total Bilirubin 0.3 0.2-1 mg/dl Direct Bilirubin < 0.1 0-0.2 mg/dl Aspartate Amino Transf (AST/SGOT) 11 15-37 U/L Alanine Aminotransferase (ALT/SGPT) 11 12-78 U/L Alkaline Phosphatase 70 45-117 U/L Total Creatine Kinase 28 39-308 U/L Creatine Kinase MB 1.3 0.5-3.6 ng/ml Creatine Kinase MB Ratio 4.6 0-3.0 Troponin I < 0.015 0-0.045 ng/ml Total Protein 8.3 6.4-8.2 gm/dl Albumin 2.2 3.4-5.0 gm/dl Bedside Hemoglobin 6.5 14.0-18.0 g/dl Bedside Hematocrit 19 42-52 % Bedside Sodium 136 135-144 mEq/L Bedside Potassium 4.4 3.3-5.0 mEq/L Bedside Chloride 99 101-112 mEq/L Bedside Total CO2 24 24-31 mEq/l Bedside Blood Urea Nitrogen 29 7-18 mg/dl Bedside Creatinine 2.8 0.6-1.3 mg/dl Bedside Glucose (other) 206 70-99 mg/dl Bedside Ionized Calcium (Olga Lidia) 1.05 1.12-1.32 mmol/l Bedside Lactic Acid Venous 2.43 0.90-1.70 mmol/L Test 03/26/17 16:27 03/26/17 16:45 Range/Units Bedside Glucose 125 70-99 mg/dl Hemoglobin 8.5 14.0-18.0 g/dL Hematocrit 25.3 42-52 % Microbiology Results 03/26/17 Blood Culture, Received Pending 03/26/17 Blood Culture, Received Pending Diagnostic Radiology ABD/PELVIS NO IV OR ORAL CONT CT DOSE: HISTORY: Mental status change. Pain. ams TECHNIQUE: Multiaxial CT images of the abdomen and pelvis were performed without contrast. A dose lowering technique was utilized adhering to the principles of ALARA. COMPARISON STUDY: None. FINDINGS: Mild bibasilar interstitial change. Minimal parenchymal infiltrative change left base. The liver spleen and pancreas are uniform. Gallstones are present within the gallbladder neck. Several small renal calcifications are present at these appear to be nonobstructing cortical calcification. Minimal infiltrative change of the perinephric fat bilaterally most likely age-related. Bowel pattern is considered nonobstructive. Bladder is midline. There are no contained calcifications. Mild fecal material within the rectosigmoid. Considerable degenerative change of lumbar spine. IMPRESSION: 1. Multiple gallstones within the region of the gallbladder neck. 2. Several small nonobstructing renal calcifications. 3.. Mild left and to a lesser extent right basilar infiltrative/interstitial change. 4. Otherwise negative study. 5. Considerable degenerative changes lumbar spine. --------- HEAD WITHOUT CONTRAST (CT) CT DOSE: 2123.77 mGy.cm HISTORY: Mental status change TECHNIQUE: Multiaxial CT images of the head were performed without the use of intravenous contrast. A dose lowering technique was utilized adhering to the principles of ALARA. Comparison: 01/19/2017 Findings: Mild mucosal thickening of the ethmoid and sphenoid sinuses. The calvarium and skull base are intact. The ventricles and sulci are within normal limits. There is no mass, hematoma, midline shift, or acute infarct. Mild changes of chronic small vessel change and atrophy of aging. Impression: 1. Age-related change. 2. No acute intracranial abnormality. 3. Mild mucosal thickening of the ethmoid and sphenoid sinuses. CHEST ONE VIEW PORTABLE CLINICAL HISTORY: fever dyspnea COMPARISON STUDY: 02/11/2017 FINDINGS: Small parenchymal infiltrate medial left base. Lungs otherwise appear clear. Mild stable cardiomegaly. IMPRESSION: Small parenchymal infiltrate medial aspect left base. EKG SR 67 Impression Assessment and Plan 76 yo M with pancytopenia and neutropenia known and incompletely worked up per patient request, but likely related to MDS vs leukemia presents with symptomatic anemia, neutropenia and HCAP 1. Pancytopenia with symptomatic anemia and neutropenia. He has been seen by Heme as outpatient and has declined BM biopsy. He was recently admitted for blood transfusion and was discharged on neutropenic precautions which he didn't like and so [facility] at the [facility]. This was in conjunction with a discussion with his PCP at the home regarding his treatment wishes and initially he was considered comfort care. However, later he decided that he did want treatment and was switched back to DNR. Recent H/H was low and he refused to be admitted to the hospital. This was 3 days ago. It is unclear what the patient's ultimate wishes are at this point regarding workup/treament/ followup management of his pancytopenia and neutropenia. I have consulted Hematology to assist with future directions in this capacity even if it is something as simple as weekly CBCD's so that he doesn't fall below an established threshold, develop symptoms/complications of anemia and can avoid admission and stay at his home where he most wants to be. 2. HCAP-pt is reporting chills and a productive cough that began today. Treating empirically with Levaquin and Cefepime. Blood cultures are pending. He is not septic. 3. Cerebral palsy-at baseline, mentating clearly. No encephalopathy-competent to make his own medical decisions. 4. CKD Stage III-at baseline with a slight increase from last hospital admission. Repeat PRP after volume resuscitation with blood and IVF today (pt was hypotensive on admission) and consider involving Nephrology as this is a complicated patient. 5. Hypothyroidism-cont Synthroid 6. Chronic constipation-cont PO meds but avoid rectal applications in setting of neutropenia 7. DMII-cont insulin coverage in hospital, BS qACHS. Adjust for goal 140-180 DVT prophy-SCDs, chemoprophy is contraindicated in anemia DNR per my conversation with him on admission and per outpatient provider notes. Dispo-cont telemetry DO Twan Osuna Hospitalist Level of Care Telemetry Advanced Directives Existing Living Will: No Existing Power of Embedded Processor: Yes (Radha-Sister) Resuscitation Status DO NOT RESUSCITATE VTE Prophylaxis VTE Risk Assessment Done? Y/N: Yes Risk Level: Moderate Given or contraindicated: Contraindicated Social Service Consult Lives in Personal Care
[2017-03-26] MEDS ORDERED: CALCIUM GLUCONATE 10% 1,000 MG in SODIUM CHLORIDE 0.9% 50ML 50 ML IV SCH (19:45)
[2017-03-26] MEDS ORDERED: LEVO50TA6 PO (20:03)
[2017-03-26] MEDS ORDERED: AMB5 PO (20:07)
[2017-03-26] MEDS ORDERED: INSDGIPEN SQ (20:07)
[2017-03-26] MEDS ORDERED: LANS15CA15 PO (20:07)
[2017-03-26] MEDS ORDERED: ONDA4TAB65 PO (20:07)
[2017-03-26] MEDS ORDERED: ALBUT/IPRATROP 3MG/0.5MG NEB 3 ML VIAL INH PRN (20:15)
[2017-03-26] MEDS ORDERED: OXYCODONE HCL IR 5 MG TAB (IMMEDIATE RELEASE) PO PRN (20:15)
[2017-03-26] MEDS: ACETAMINOPHEN 325 MG TAB PO PRN (20:38)
[2017-03-26] MEDS: INSULIN GLARGINE SOLOSTAR 100 UNITS/ML 3 ML PEN SC SCH (20:39)
[2017-03-26] MEDS: GABAPENTIN 100 MG CAP PO SCH (22:07)
[2017-03-26] MEDS: RANITIDINE HCL 150 MG TAB PO SCH (22:07)
[2017-03-27] VITALS (42 sets, daily range): BP systolic 45–132; BP diastolic 30–71; PULSE 67–124; TEMP 36.2–39.4; O2SAT 94–100
--- NOTE | 2017-03-27 01:28 | Progress Note ---
Progress Note Date of Service Mar 27, 2017. Progress Note Patient was hypotensive at time of presentation. Chest x-ray demonstrated suspected basilar infiltrate. CT demonstrated cholelithiasis. Blood cultures obtained. Received fluid resuscitation. Started on levofloxacin and cefepime. Received 2 units pRBC's for Hgb of 5.6. Hypotensive tonight. No overt GI bleeding. Rectal temp 39. Exam- VS @ 23:07 temp 37.2, pulse 100, RR 21, BP 73/42 VS @ 23:41 temp 39.0, BP 54/38 Neck- supple Lungs- few rhonchi Heart- RRR Abd- quiet BS, soft, nontender Extr- trace edema Neuro- lethargic A/P: Sepsis. Possible sources = pulmonary and biliary tract. Already had initial cultures, fluid resuscitation, initiation of antibiotic coverage with levofloxacin + cefepime. Check repeat lactate + procalcitonin. Received NSS 500 ml x 2 with improvement of hemodynamics. History of MRSA. Creatinine 2.6, so best to avoid vancomycin. Linezolid added to antibiotic regimen. Sister called and given update.
[2017-03-27] MEDS ORDERED: SODIUM CHLORIDE 0.9% 500ML 500 ML IV SCH ×2 (01:30)
[2017-03-27] MEDS: LINEZOLID / D5W 600 MG in PREMIXED IN D5W 300 ML IV SCH ×2 (03:01→14:42)
[2017-03-27] MEDS: LEVOTHYROXINE 50 MCG TAB PO SCH (04:49)
[2017-03-27] MEDS: INSULIN ASPART 100 UNITS/ML 3 ML PEN SC SCH ×4 (07:45→21:00)
[2017-03-27] MEDS: ACETAMINOPHEN 325 MG TAB PO PRN (07:59)
[2017-03-27] MEDS: PANTOprazole SOD 40 MG TAB PO SCH (08:00)
[2017-03-27] MEDS: GABAPENTIN 100 MG CAP PO SCH ×3 (08:00→19:56)
[2017-03-27] MEDS: RANITIDINE HCL 150 MG TAB PO SCH ×2 (08:01→19:57)
[2017-03-27] MEDS ORDERED: LINEZOLID / D5W 600 MG in PREMIXED IN D5W 300 ML IV SCH (09:00)
[2017-03-27 09:12] LABS: URINE APPEARANCE TURBID (CLEAR); URINE BILIRUBIN NEG (NEG); URINE COLOR DK YELLOW; URINE EPITHELIAL CELL AUTO >30 /lpf (0-5); URINE NITRITE NEG (NEG); URINE SPECIFIC GRAVITY 1.024 (1.000-1.030); UROBILINOGEN NEG (NEG)
[2017-03-27 09:13] LABS: MANUAL MICROSCOPIC REQUIRED? NO; REVIEW REQ? YES
[2017-03-27 09:17] LABS: MEAN CORPUSCULAR HGB CONC 34.2 g/dl (32-36); MEAN PLATELET VOLUME 11.4 fL (7.4-10.4); PLATELET COUNT 256 K/uL (130-400)
[2017-03-27 09:22] LABS: URINE PATH CASTS 0-3 GRANULAR CASTS /lpf (0)
[2017-03-27 09:24] LABS: ESTIMATED AVERAGE GLUCOSE 169 mg/dl; HA1C FLAG Normal (Normal)
[2017-03-27 09:58] LABS: BUN/CREATININE RATIO 10.4 (10-20); CALCIUM 7.1 mg/dl (8.5-10.1); CREATININE 2.9 mg/dl (0.60-1.40); MAGNESIUM 1.7 mg/dl (1.8-2.4); POTASSIUM 5.3 mmol/L (3.5-5.1)
[2017-03-27 10:05] LABS: HEMATOCRIT 23.1 % (42-52); MEAN CELL VOLUME 99.1 fL (80-100); MEAN CORPUSCULAR HEMOGLOBIN 33.9 pg (25-34); RED BLOOD COUNT 2.33 M/uL (4.7-6.1); WHITE BLOOD COUNT 9.75 K/uL (4.8-10.8)
[2017-03-27 10:09] LABS: ANISOCYTOSIS PRESENT; BASO ABS # 0.09 K/uL (0-0.2); BASOPHIL % 0.9 % (0-2); COMPLETE YES; DOHLE BODIES 1+; GIANT PLATELETS 1+; LYMPH ABS # 0.79 K/uL (1.2-3.4); LYMPHOCYTE % 8.1 %; NEUTROPHILS % 19.8 %; VACUOLIZATION 1+
--- NOTE | 2017-03-27 10:46 | Progress Note ---
Progress Note Date of Service Mar 27, 2017. Progress Note ID Consult Dictated #[id number] A/P: 1. Fever 2. LLL infiltrate -Would continue abx. follow culture check sputum culture -flu swab, legionella antigen -will follow thank you
[2017-03-27] MEDS: DOPamine 400MG / D5W 400 MG IV PRN ×3 (11:17→19:51)
[2017-03-27] MEDS ORDERED: NURSING VERBAL MED ORDER ONE (12:00)
[2017-03-27] MEDS: SODIUM CHLORIDE 0.9% 1000ML 1,000 ML IV SCH ×2 (12:43→12:44)
--- NOTE | 2017-03-27 13:51 | Progress Note ---
Internal Med Progress Note Date of Service: Mar 27, 2017. Provider Documentation: SUBJECTIVE: The patient was seen and examined Clinically stable during my exam After a while he become very hypotensive Remained clear mentally OBJECTIVE: Vital Signs-as noted below Exam: General-No acute distress Eyes-Normal ENT-normal Neck-Supple Lungs-Clear to auscultate bilaterally with decreased breath sound Heart-Regular,no murmur Abdomen-Benign,no masses,bowel sound present Extremities-Trace edema bilaterally Neuro-AA\ Generally weak and lethargic Lab data as noted below. 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 presents with symptomatic anemia, neutropenia and HCAP Septic Shock Has MDS and Neutropenia with Fever and Pneumonia Likely source CAP ,Urine test is pending Has been on Levaquin,Cefepime and Daptomycin Blood and Urine culture -pending Remains unstable clinically Appreciate ID input Started on Renal dose Dopamine to improve Blood Pressure and Urine output Pancytopenia with symptomatic anemia and neutropenia. Has MDS-under care of Dr Person and refused Bone Marrow Biopsy in past Has had 2 units of PRBC for Anemia and likely to need more blood Neutropenic precaution Cerebral palsy-at baseline, mentating clearly. No encephalopathy-competent to make his own medical decisions. CKD Stage III-at baseline with a slight increase from last hospital admission. Repeat PRP after volume resuscitation with blood and IVF today (pt was hypotensive on admission) and consider involving Nephrology as this is a complicated patient. Hypothyroidism-cont Synthroid DMII-cont insulin coverage in hospital, BSG qACHS. Adjust for goal 140-180 DVT prophy-SCDs, chemoprophy is contraindicated in anemia DNR per my conversation with him on admission and per outpatient provider notes. Discussed with the Sister and the Patient If needed will start aggressive treatment and send the patient to ICU Vital Signs: Date Time Temp Pulse Resp B/P (MAP) Pulse Ox O2 Delivery O2 Flow Rate FiO2 03/27/17 12:45 112/59 (76) 03/27/17 10:55 45/30 (35) 03/27/17 10:18 67 53/32 (39) 99 03/27/17 10:13 67 22 53/36 (42) 100 03/27/17 10:09 37.0 71 28 64/37 (46) 97 03/27/17 09:16 37.5 03/27/17 07:32 39.4 03/27/17 07:21 38.2 115 14 99/67 (78) 100 03/27/17 05:06 36.8 91 18 108/71 (83) 96 Nasal Cannula 3.0 03/27/17 04:00 96 Nasal Cannula 3.0 03/27/17 03:45 36.2 88 16 91/57 (68) 94 Nasal Cannula 3.0 03/27/17 03:06 77/50 (59) 03/27/17 02:15 72/57 (62) 03/27/17 01:55 70/40 (50) 03/27/17 01:45 68/48 (55) 03/27/17 00:54 65/30 (42) 03/27/17 00:43 60/42 (48) 03/27/17 00:24 70/40 (50) 03/27/17 00:05 64/32 (43) 03/27/17 00:00 96 Nasal Cannula 3.0 03/26/17 23:58 66/34 (45) 03/26/17 23:42 61/42 (48) 03/26/17 23:41 39.0 54/38 (43) 95 Nasal Cannula 3.0 03/26/17 23:07 37.2 100 21 73/42 (52) 96 Nasal Cannula 3.0 03/26/17 20:47 92 Nasal Cannula 2.0 03/26/17 20:02 37.6 121 22 142/77 (98) 91 Nasal Cannula 2.0 03/26/17 15:15 37.4 78 16 131/74 100 Nasal Cannula 2.0 03/26/17 15:01 131/80 03/26/17 14:54 75 20 96 03/26/17 14:54 36.9 79 19 131/80 96 03/26/17 14:50 116/70 03/26/17 14:39 36.7 80 17 116/70 97 03/26/17 14:39 84 20 03/26/17 14:31 110/85 03/26/17 14:25 115/65 03/26/17 14:24 36.7 77 16 115/65 99 03/26/17 14:24 77 18 100 03/26/17 14:17 113/53 03/26/17 14:10 101/63 03/26/17 14:09 73 19 94 03/26/17 14:09 36.7 72 16 101/63 96 03/26/17 14:06 104/67 03/26/17 14:01 118/68 03/26/17 13:54 72 17 96 03/26/17 13:46 115/66 03/26/17 13:41 36.7 70 16 108/73 97 03/26/17 13:39 71 15 97 03/26/17 13:39 71 16 108/73 98 03/26/17 13:37 72 Lab Results: Results Past 24 Hours Test 03/26/17 16:27 03/26/17 16:45 03/26/17 20:34 03/27/17 00:17 Range/Units Bedside Glucose 125 103 70-99 mg/dl Hemoglobin 8.5 14.0-18.0 g/dL Hematocrit 25.3 42-52 % Lactic Acid Level 3.0 0.4-2.0 mmol/L Procalcitonin 1.20 0-0.5 ng/ml Test 03/27/17 07:06 03/27/17 07:21 03/27/17 08:50 03/27/17 09:01 Range/Units Lactic Acid Level 3.7 0.4-2.0 mmol/L Bedside Glucose 171 70-99 mg/dl Urine Color DK YELLOW Urine Appearance TURBID CLEAR Urine pH 5.0 4.5-7.5 Urine Specific [place] 1.024 1.000-1.030 Urine Protein 1+ NEG Urine Glucose (UA) NEG NEG Urine Ketones TRACE NEG Urine Occult Blood 2+ NEG Urine Nitrite NEG NEG Urine Bilirubin NEG NEG Urine Urobilinogen NEG NEG Urine Leukocyte Esterase MODERATE NEG Urine WBC (Auto) >30 0-5 /hpf Urine RBC (Auto) 0-4 0-4 /hpf Urine Hyaline Casts (Auto) 5-10 0-5 /lpf Urine Epithelial Cells (Auto) >30 0-5 /lpf Urine Bacteria (Auto) 1+ NEG Urine Pathogenic Casts 0-3 GRANULAR CASTS 0 /lpf Urine Yeast (Auto) NONE PRSENT Sodium Level 134 136-145 mmol/L Potassium Level 5.3 3.5-5.1 mmol/L Chloride Level 104 98-107 mmol/L Carbon Dioxide Level 17 21-32 mmol/L Anion Gap 13.0 3-11 mmol/L Blood Urea Nitrogen 30 7-18 mg/dl Creatinine 2.90 0.60-1.40 mg/dl Est Creatinine Clear Calc Drug Dose 23.2 ml/min Estimated GFR () 23.6 Estimated GFR (Non- 20.4 BUN/Creatinine Ratio 10.4 10-20 Random Glucose 184 70-99 mg/dl Estimated Average Glucose 169 mg/dl Hemoglobin A1c 7.5 4.5-5.6 % Calcium Level 7.1 8.5-10.1 mg/dl Magnesium Level 1.7 1.8-2.4 mg/dl Test 03/27/17 09:02 03/27/17 10:06 03/27/17 11:18 Range/Units White Blood Count 9.75 4.8-10.8 K/uL Red Blood Count 2.33 4.7-6.1 M/uL Hemoglobin 7.9 14.0-18.0 g/dL Hematocrit 23.1 42-52 % Mean Corpuscular Volume 99.1 80-100 fL Mean Corpuscular Hemoglobin 33.9 25-34 pg Mean Corpuscular Hemoglobin Concent 34.2 32-36 g/dl Platelet Count 256 130-400 K/uL Mean Platelet Volume 11.4 7.4-10.4 fL RDW Standard Deviation 72.0 36.4-46.3 fL RDW Coefficient of Variation 22.0 11.5-14.5 % Nucleated RBC Absolute Count (auto) 0.04 0-0 K/uL Neutrophils % (Manual) 19.8 % Lymphocytes % (Manual) 8.1 % Monocytes % (Manual) 59.5 % Eosinophils % (Manual) 9.0 % Basophils % (Manual) 0.9 0-2 % Blast Cells % 2.7 % Nucleated Red Blood Cells % 0.4 % Neutrophils # (Manual) 1.93 1.4-6.5 K/uL Total Absolute Neutrophils 1.93 1.4-6.5 K/uL Lymphocytes # (Manual) 0.79 1.2-3.4 K/uL Total Absolute Lymphocytes 0.79 1.2-3.4 K/uL Monocytes # (Manual) 5.80 0.11-0.59 K/uL Eosinophils # (Manual) 0.88 0-0.5 K/uL Basophils # (Manual) 0.09 0-0.2 K/uL Hypogranular Neutrophils 1+ Blast Cells # 0.26 0-0 K/uL Toxic Vacuolation 1+ Dohle Bodies 1+ Giant Platelets 1+ Anisocytosis PRESENT Bedside Glucose 187 157 70-99 mg/dl Microbiology Results 03/27/17 Urine Culture, Received Pending
--- NOTE | 2017-03-27 14:14 | INFECT. DISEASE CONSULTATION ---
DATE OF CONSULTATION: 03/27/2017 REQUESTING PHYSICIAN: Dr. Brady. HISTORY OF PRESENT ILLNESS: This is a 76-year-old gentleman who was admitted from a SNF after he had an episode of apnea that lasted 10 seconds per the H&P. He does have family at the bedside, but he is unable to provide significant review of systems. He was found to be anemic with a hemoglobin of 5.6. He had a mild leukocytosis on admission of 11.2. His lactic acid was mildly elevated at 3.7. His creatinine is also elevated. Per the H&P, he has suspected leukemia, but has refused workup and placed himself on comfort measures at his nursing facility; however, he does wish to be treated with antibiotics and transfusions when needed and he was subsequently admitted to the hospital. He did receive a transfusion and developed a fever of 39.4. He is currently afebrile. He did have a chest x-ray, which showed a left basilar infiltrate and he was subsequently started on Levaquin, cefepime, Zosyn, and Zyvox. He appears to be tolerating these medications well. He currently denies any shortness of breath or cough. He denies any GI bleeding. He denies any abdominal pain. He states his weight has been stable. His remaining review of systems are limited, but negative. PAST MEDICAL HISTORY: Significant for myelodysplastic syndrome with suspected leukemia, cerebral palsy, chronic respiratory failure with hypoxia, chronic tetraplegia, chronic kidney disease, type 2 diabetes, GERD and hypothyroidism. FAMILY HISTORY: Noncontributory. SOCIAL HISTORY: Significant for a history of tobacco use. He currently is living in a SNF. ALLERGIES: VANCOMYCIN AND AMOXICILLIN. CURRENT MEDICATIONS: Include Levaquin, cefepime, Neurontin, Protonix, Synthroid, Zyvox, Lantus, Zantac, Zanaflex, DuoNebs, Roxicodone, insulin, Tylenol, Zofran, and MiraLax. PHYSICAL EXAMINATION: VITAL SIGNS: He is currently afebrile, pulse 67, respiratory rate is in the 20s, He is saturating 99%. GENERAL: He is awake and alert. He is in no acute distress. THROAT: His mucous membranes are dry. HEART: Regular. LUNGS: Decreased bilaterally at the bases, but clear. ABDOMEN: Soft and nondistended. EXTREMITIES: There is no lower extremity edema bilaterally. SKIN: Without rash. LABORATORY STUDIES: CBC today reveals a white blood cell count of 9.7, hemoglobin 7.9 and platelets are 256. Chemistry panel reveals a sodium of 134, potassium 5.3, chloride 104, bicarbonate 17, BUN 30, creatinine 2.9, and glucose is 187. LFTs were normal. Urinalysis shows greater than 30 WBCs and 1+ bacteria. Urine culture and blood cultures are pending. Chest x-ray in the Emergency Room showed a small infiltrate at the left base. CT of the head done in the Emergency Room was negative for acute findings. CAT scan of the abdomen and pelvis showed gallstones, nonobstructing renal stones and otherwise negative study. ASSESSMENT AND PLAN: Fever, question secondary to infection versus transfusion. He does have an infiltrate on x-ray and is on broad spectrum antibiotics. Sputum culture should be checked. Flu swab and legionella antigens will also be ordered. We will follow along with you. Thank you for this consultation. KEATON
[2017-03-27] MEDS: CEFEPIME IV 2000 MG in DEXTROSE 5% 100ML IV SCH (19:55)
[2017-03-27] MEDS: INSULIN GLARGINE SOLOSTAR 100 UNITS/ML 3 ML PEN SC SCH (21:44)
[2017-03-28] VITALS (10 sets, daily range): BP systolic 82–132; BP diastolic 50–70; PULSE 79–103; TEMP 36.3–36.9; O2SAT 96–100
[2017-03-28] MEDS ORDERED: LEVOFLOXACIN 750MG / D5W IV SCH
[2017-03-28] MEDS: LINEZOLID / D5W 600 MG in PREMIXED IN D5W 300 ML IV SCH ×2 (02:45→14:21)
[2017-03-28] MEDS: DOPamine 400MG / D5W 400 MG IV PRN ×2 (02:55→20:37)
[2017-03-28] MEDS: LEVOTHYROXINE 50 MCG TAB PO SCH (05:39)
[2017-03-28] MEDS: ACETAMINOPHEN 325 MG TAB PO PRN (05:40)
[2017-03-28 06:49] LABS: CREATININE 2.4 mg/dl (0.60-1.40)
[2017-03-28] MEDS: RANITIDINE HCL 150 MG TAB PO SCH ×2 (07:51→21:32)
[2017-03-28] MEDS: GABAPENTIN 100 MG CAP PO SCH ×3 (07:51→21:32)
[2017-03-28] MEDS: PANTOprazole SOD 40 MG TAB PO SCH (07:51)
[2017-03-28] MEDS: INSULIN ASPART 100 UNITS/ML 3 ML PEN SC SCH ×4 (07:51→21:33)
[2017-03-28 09:32] LABS: ALB/GLOB RATIO 0.3 (0.9-2); BUN/CREATININE RATIO 10.3 (10-20); CREATININE 2.4 mg/dl (0.60-1.40); POTASSIUM 4.5 mmol/L (3.5-5.1)
[2017-03-28 10:00] LABS: HEMATOCRIT 27.6 % (42-52); MEAN CELL VOLUME 99.3 fL (80-100); MEAN CORPUSCULAR HEMOGLOBIN 33.1 pg (25-34); MEAN CORPUSCULAR HGB CONC 33.3 g/dl (32-36); MEAN PLATELET VOLUME 12.3 fL (7.4-10.4); PLATELET COUNT 206 K/uL (130-400); RED BLOOD COUNT 2.78 M/uL (4.7-6.1); WHITE BLOOD COUNT 8.31 K/uL (4.8-10.8)
--- NOTE | 2017-03-28 10:45 | DIAGNOSTIC IMAGING REPORT ---
CHEST ONE VIEW PORTABLE HISTORY: Short of breath. COMPARISON: Chest 03/26/2017. FINDINGS: No pneumothorax. No pleural fusions. The heart is normal in size. Improved aeration within the left lung base. Linear density at the left lower lobe versus atelectasis. Cervical spinal fusion hardware. No evidence for pulmonary edema. IMPRESSION: Improved aeration within the left lung base. A linear density within the left lower lobe favor subsegmental atelectasis. Electronically signed by: Haseeb Monteiro M.D. 03/28/2017 10:44 AM Dictated Date/Time: 03/28/2017 10:41 AM
--- NOTE | 2017-03-28 11:57 | Progress Note ---
Internal Med Progress Note Date of Service: Mar 28, 2017. Provider Documentation: SUBJECTIVE: The patient was seen and examined Denies any symptoms Required Dopamine to maintain BP and Urine output Remains stable OBJECTIVE: Vital Signs-as noted below Exam: General-No acute distress Eyes-Normal ENT-normal Neck-Supple Lungs-Clear to auscultate bilaterally with decreased breath sound Heart-Regular,no murmur Abdomen-Benign,no masses,bowel sound present Extremities-1 +edema bilaterally 1+ edema bilaterally upper extremities Neuro-AA Generally weak and lethargic Lab data as noted below. 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 presents with symptomatic anemia, neutropenia and HCAP Septic Shock Has MDS and Neutropenia with Fever and Pneumonia Likely source CAP ,Urine test is pending Has been on Levaquin,Cefepime and Daptomycin Blood cultures-Negative Urine culture -Staph Aureus,sensitivity pending Remains unstable clinically Appreciate ID input Started on Renal dose Dopamine to improve Blood Pressure and Urine output BP is on the lower side -continuing Dopamine for now Continue with IVF -CXR no overt Congestive change Pancytopenia with symptomatic anemia and neutropenia. Has MDS-under care of Dr Person and refused Bone Marrow Biopsy in past Has had 2 units of PRBC for Anemia and likely to need more blood Neutropenic precaution Hb is much better >9 Cerebral palsy-at baseline, mentating clearly. No encephalopathy-competent to make his own medical decisions. Requires assistance in ADLS CKD Stage III-at baseline with a slight increase from last hospital admission. Repeat PRP after volume resuscitation with blood and IVF today (pt was hypotensive on admission) and consider involving Nephrology as this is a complicated patient. [place] urine output Hypothyroidism-cont Synthroid DMII-cont insulin coverage in hospital, BSG qACHS. Adjust for goal 140-180 DVT prophy-SCDs, chemoprophylaxis is contraindicated now DNR per my conversation with him on admission and per outpatient provider notes. Discussed with the Sister and the Patient If needed will start aggressive treatment and send the patient to ICU Will discuss with the Family members Vital Signs: Date Time Temp Pulse Resp B/P (MAP) Pulse Ox O2 Delivery O2 Flow Rate FiO2 03/28/17 11:32 36.7 84 20 116/70 (85) 99 Nasal Cannula 3.0 03/28/17 08:03 36.9 102 20 88/57 (67) 98 Room Air 03/28/17 08:00 Nasal Cannula 3.0 03/28/17 04:00 96 Nasal Cannula 3.0 03/28/17 03:03 36.6 98 18 93/54 (67) 98 Nasal Cannula 3.0 03/28/17 02:38 103 82/50 (61) 03/28/17 00:13 36.9 91 22 100/53 (69) 99 Nasal Cannula 3.0 03/28/17 00:00 96 Nasal Cannula 3.0 03/27/17 21:27 116 97/56 (70) 03/27/17 20:00 97 Nasal Cannula 3.0 03/27/17 19:24 37.2 101 20 78/51 (60) 97 Nasal Cannula 3.0 75/55 (62) 03/27/17 16:54 124 101/61 (74) 03/27/17 16:00 95 Nasal Cannula 3.0 03/27/17 15:45 36.8 114 20 103/51 (68) 95 Nasal Cannula 3.0 03/27/17 13:48 102/60 (74) 03/27/17 13:34 103/63 (76) 03/27/17 13:18 118/65 (82) 03/27/17 13:03 111/63 (79) 03/27/17 12:48 132/67 (88) 03/27/17 12:45 112/59 (76) 03/27/17 12:33 112/59 (76) 03/27/17 12:18 108/58 (75) 03/27/17 12:03 70/41 (51) 03/27/17 12:00 96 Nasal Cannula 3.0 Lab Results: Results Past 24 Hours Test 03/27/17 17:00 03/27/17 20:34 03/28/17 03:00 03/28/17 06:15 Range/Units Bedside Glucose 194 167 70-99 mg/dl White Blood Count 8.31 4.8-10.8 K/uL Red Blood Count 2.78 4.7-6.1 M/uL Hemoglobin 9.2 14.0-18.0 g/dL Hematocrit 27.6 42-52 % Mean Corpuscular Volume 99.3 80-100 fL Mean Corpuscular Hemoglobin 33.1 25-34 pg Mean Corpuscular Hemoglobin Concent 33.3 32-36 g/dl RDW Standard Deviation 70.3 36.4-46.3 fL RDW Coefficient of Variation 21.6 11.5-14.5 % Platelet Count 206 130-400 K/uL Mean Platelet Volume 12.3 7.4-10.4 fL Sodium Level 136 136-145 mmol/L Potassium Level 4.5 3.5-5.1 mmol/L Chloride Level 106 98-107 mmol/L Carbon Dioxide Level 19 21-32 mmol/L Anion Gap 11.0 3-11 mmol/L Blood Urea Nitrogen 25 7-18 mg/dl Creatinine 2.40 0.60-1.40 mg/dl Est Creatinine Clear Calc Drug Dose 28.1 ml/min Estimated GFR () 29.7 Estimated GFR (Non- 25.6 BUN/Creatinine Ratio 10.3 10-20 Random Glucose 160 70-99 mg/dl Calcium Level 7.0 8.5-10.1 mg/dl Total Bilirubin 0.3 0.2-1 mg/dl Aspartate Amino Transf (AST/SGOT) 19 15-37 U/L Alanine Aminotransferase (ALT/SGPT) 11 12-78 U/L Alkaline Phosphatase 58 45-117 U/L Total Protein 7.1 6.4-8.2 gm/dl Albumin 1.8 3.4-5.0 gm/dl Globulin 5.3 2.5-4.0 gm/dl Albumin/Globulin Ratio 0.3 0.9-2 Test 03/28/17 06:22 03/28/17 11:22 Range/Units Bedside Glucose 160 175 70-99 mg/dl
--- NOTE | 2017-03-28 14:12 | Progress Note ---
Subjective Date of Service: Mar 28, 2017. Subjective pt in bed,family at bedside. afebrile. urine with s. aureus. blood cultures reman negative. repeat cxr with atelectasis, no infiltrate. tolerating abx. remains with low counts. tolerating abx. Problem List Medical Problems: (1) Altered mental status Status: Acute (2) Elevated serum creatinine Status: Acute (3) Hypotension Status: Acute (4) Hypotension Status: Acute (5) Pneumonia Status: Acute (6) Sepsis Status: Acute (7) Sepsis Status: Acute (8) Severe anemia Status: Acute (9) Tachycardia Status: Acute (10) TIA (transient ischemic attack) Status: Acute Objective Vital Signs Date Time Temp Pulse Resp B/P (MAP) Pulse Ox O2 Delivery O2 Flow Rate FiO2 03/28/17 12:00 Nasal Cannula 3.0 03/28/17 11:32 36.7 84 20 116/70 (85) 99 Nasal Cannula 3.0 03/28/17 08:03 36.9 102 20 88/57 (67) 98 Room Air 03/28/17 08:00 Nasal Cannula 3.0 03/28/17 04:00 96 Nasal Cannula 3.0 03/28/17 03:03 36.6 98 18 93/54 (67) 98 Nasal Cannula 3.0 03/28/17 02:38 103 82/50 (61) 03/28/17 00:13 36.9 91 22 100/53 (69) 99 Nasal Cannula 3.0 03/28/17 00:00 96 Nasal Cannula 3.0 03/27/17 21:27 116 97/56 (70) 03/27/17 20:00 97 Nasal Cannula 3.0 03/27/17 19:24 37.2 101 20 78/51 (60) 97 Nasal Cannula 3.0 75/55 (62) 03/27/17 16:54 124 101/61 (74) 03/27/17 16:00 95 Nasal Cannula 3.0 03/27/17 15:45 36.8 114 20 103/51 (68) 95 Nasal Cannula 3.0 Laboratory Results Item Value Date Time Urine Culture - Preliminary Resulted 03/27/17 0850 Urine,Catheterized Staphylococcus Aureus Blood Culture - Preliminary Resulted 03/26/17 1100 Blood NO GROWTH TO DATE. Blood Culture - Preliminary Resulted 03/26/17 1025 Blood NO GROWTH TO DATE. Last 24 Hours Test 03/27/17 17:00 03/27/17 20:34 03/28/17 03:00 03/28/17 06:15 Bedside Glucose 194 mg/dl 167 mg/dl White Blood Count 8.31 K/uL Red Blood Count 2.78 M/uL Hemoglobin 9.2 g/dL Hematocrit 27.6 % Mean Corpuscular Volume 99.3 fL Mean Corpuscular Hemoglobin 33.1 pg Mean Corpuscular Hemoglobin Concent 33.3 g/dl RDW Standard Deviation 70.3 fL RDW Coefficient of Variation 21.6 % Platelet Count 206 K/uL Mean Platelet Volume 12.3 fL Sodium Level 136 mmol/L Potassium Level 4.5 mmol/L Chloride Level 106 mmol/L Carbon Dioxide Level 19 mmol/L Anion Gap 11.0 mmol/L Blood Urea Nitrogen 25 mg/dl Creatinine 2.40 mg/dl Est Creatinine Clear Calc Drug Dose 28.1 ml/min Estimated GFR () 29.7 Estimated GFR (Non- 25.6 BUN/Creatinine Ratio 10.3 Random Glucose 160 mg/dl Calcium Level 7.0 mg/dl Total Bilirubin 0.3 mg/dl Aspartate Amino Transf (AST/SGOT) 19 U/L Alanine Aminotransferase (ALT/SGPT) 11 U/L Alkaline Phosphatase 58 U/L Total Protein 7.1 gm/dl Albumin 1.8 gm/dl Globulin 5.3 gm/dl Albumin/Globulin Ratio 0.3 Test 03/28/17 06:22 03/28/17 11:22 Bedside Glucose 160 mg/dl 175 mg/dl Assessment and Plan (1) UTI (urinary tract infection) Assessment & Plan: continue abx, if blood cultures remain negative will likely narrow therapy to staph treatment in am. will follow
[2017-03-28] MEDS: CEFEPIME IV 2000 MG in DEXTROSE 5% 100ML IV SCH (18:16)
[2017-03-28] MEDS: INSULIN GLARGINE SOLOSTAR 100 UNITS/ML 3 ML PEN SC SCH (20:36)
[2017-03-29] VITALS (12 sets, daily range): BP systolic 91–123; BP diastolic 55–72; PULSE 56–87; TEMP 36.4–36.7; O2SAT 93–100
[2017-03-29] MEDS: LINEZOLID / D5W 600 MG in PREMIXED IN D5W 300 ML IV SCH ×2 (03:12→14:04)
[2017-03-29 05:29] LABS: INFLUENZA A PCR Neg for Influ A (NEG); INFLUENZA B PCR Neg for Influ B (NEG)
[2017-03-29] MEDS: LEVOTHYROXINE 50 MCG TAB PO SCH (06:01)
[2017-03-29] MEDS: RANITIDINE HCL 150 MG TAB PO SCH ×2 (09:03→20:24)
[2017-03-29] MEDS: GABAPENTIN 100 MG CAP PO SCH ×3 (09:03→20:24)
[2017-03-29] MEDS: PANTOprazole SOD 40 MG TAB PO SCH (09:03)
[2017-03-29] MEDS: INSULIN ASPART 100 UNITS/ML 3 ML PEN SC SCH ×4 (09:08→20:23)
[2017-03-29] MEDS: ACETAMINOPHEN 325 MG TAB PO PRN ×2 (09:14→20:25)
--- NOTE | 2017-03-29 10:38 | Progress Note ---
Subjective Date of Service: Mar 29, 2017. Subjective pt tolerating abx. blood cultures remain negative, urine with staph, awaiting final. wbc 8.3, flu negative. remains afebrile. no overnight events. Problem List Medical Problems: (1) Altered mental status Status: Acute (2) Elevated serum creatinine Status: Acute (3) Hypotension Status: Acute (4) Hypotension Status: Acute (5) Pneumonia Status: Acute (6) Sepsis Status: Acute (7) Sepsis Status: Acute (8) Severe anemia Status: Acute (9) Tachycardia Status: Acute (10) TIA (transient ischemic attack) Status: Acute Objective Vital Signs Date Time Temp Pulse Resp B/P (MAP) Pulse Ox O2 Delivery O2 Flow Rate FiO2 03/29/17 08:49 Nasal Cannula 2.0 03/29/17 08:00 Nasal Cannula 2.0 03/29/17 07:58 36.5 76 18 122/71 (88) 99 Nasal Cannula 2.0 03/29/17 04:00 Nasal Cannula 2.0 03/29/17 02:46 36.4 56 18 96/55 (69) 100 Nasal Cannula 3.0 03/29/17 00:19 36.4 83 21 113/72 (86) 100 Nasal Cannula 3.0 03/29/17 00:00 Nasal Cannula 3.0 03/28/17 20:00 99 Nasal Cannula 3.0 03/28/17 19:26 36.3 90 20 105/63 (77) 99 Nasal Cannula 3.0 03/28/17 16:10 36.9 79 20 132/65 (87) 100 Room Air 03/28/17 15:51 Nasal Cannula 3.0 03/28/17 12:00 Nasal Cannula 3.0 03/28/17 11:32 36.7 84 20 116/70 (85) 99 Nasal Cannula 3.0 Laboratory Results Item Value Date Time Urine Culture - Preliminary Resulted 03/27/17 0850 Urine,Catheterized Staphylococcus Aureus Blood Culture - Preliminary Resulted 03/26/17 1100 Blood NO GROWTH TO DATE. Blood Culture - Preliminary Resulted 03/26/17 1025 Blood NO GROWTH TO DATE. Last 24 Hours Test 03/28/17 11:22 03/28/17 16:30 03/28/17 20:05 03/29/17 00:41 Bedside Glucose 175 mg/dl 199 mg/dl 165 mg/dl Influenza Type A (RT-PCR) Neg for Influ A Influenza Type B (RT-PCR) Neg for Influ B Test 03/29/17 06:05 03/29/17 06:56 Creatinine 2.00 mg/dl Est Creatinine Clear Calc Drug Dose 33.6 ml/min Estimated GFR () 37.0 Estimated GFR (Non- 31.9 Bedside Glucose 146 mg/dl Assessment and Plan (1) UTI (urinary tract infection) Assessment & Plan: continue zyvox, pending final. will stop other abx. follow final cultures.
[2017-03-29 13:09] LABS: BLOOD UREA NITROGEN 19 mg/dl (7-18); BUN/CREATININE RATIO 8.9 (10-20); CALCIUM 7.4 mg/dl (8.5-10.1); CARBON DIOXIDE 18 mmol/L (21-32); CHLORIDE 109 mmol/L (98-107); GLUCOSE 174 mg/dl (70-99); SODIUM 137 mmol/L (136-145)
[2017-03-29 13:55] LABS: HEMATOCRIT 21.9 % (42-52); MEAN CELL VOLUME 98.2 fL (80-100); MEAN CORPUSCULAR HEMOGLOBIN 33.6 pg (25-34); MEAN PLATELET VOLUME 11.6 fL (7.4-10.4); PLATELET COUNT 179 K/uL (130-400); RED BLOOD COUNT 2.23 M/uL (4.7-6.1); WHITE BLOOD COUNT 8.79 K/uL (4.8-10.8)
[2017-03-29 14:02] LABS: MEAN CORPUSCULAR HGB CONC 34.2 g/dl (32-36)
[2017-03-29] MEDS: DOPamine 400MG / D5W 400 MG IV PRN (14:07)
[2017-03-29 15:15] LABS: MAGNESIUM 1.8 mg/dl (1.8-2.4); POTASSIUM 4.3 mmol/L (3.5-5.1)
--- NOTE | 2017-03-29 18:13 | Progress Note ---
Internal Med Progress Note Date of Service: Mar 29, 2017. Provider Documentation: SUBJECTIVE: The patient was seen and examined Denies any symptoms Required Dopamine to maintain BP and Urine output Remains stable Denies any symptoms BP is maintained Dopamine is decreased OBJECTIVE: Vital Signs-as noted below Exam: General-No acute distress Eyes-Normal ENT-normal Neck-Supple Lungs-Clear to auscultate bilaterally with decreased breath sound Heart-Regular,no murmur Abdomen-Benign,no masses,bowel sound present Extremities-1 +edema bilaterally 1+ edema bilaterally upper extremities Neuro-AA Generally weak and lethargic Right hemiparesis Lab data as noted below. 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 presents with symptomatic anemia, neutropenia and HCAP Septic Shock Has MDS and Neutropenia with Fever and Pneumonia Likely source CAP ,Urine test is pending Has been on Levaquin,Cefepime and Daptomycin Blood cultures-Negative Urine culture -Staph Aureus,sensitivity pending Remains unstable clinically Appreciate ID input Started on Renal dose Dopamine to improve Blood Pressure and Urine output BP is on the lower side -continuing Dopamine for now Continue with IVF -CXR no overt Congestive change Decrease dose of Dopamine to 2.5 Mcg Will try to discontinue tomorrow Pancytopenia with symptomatic anemia and neutropenia. Has MDS-under care of Dr Person and refused Bone Marrow Biopsy in past Has had 2 units of PRBC for Anemia and likely to need more blood Neutropenic precaution Hb is much better >9 but dropped again Will give 2 more units PRBC Cerebral palsy-at baseline, mentating clearly. No encephalopathy-competent to make his own medical decisions. Requires assistance in ADLS CKD Stage III-at baseline with a slight increase from last hospital admission. Repeat PRP after volume resuscitation with blood and IVF today (pt was hypotensive on admission) and consider involving Nephrology as this is a complicated patient. Adequet urine output Hypothyroidism-cont Synthroid DMII-cont insulin coverage in hospital, BSG qACHS. Adjust for goal 140-180 DVT prophy-SCDs, chemoprophylaxis is contraindicated now DNR per my conversation with him on admission and per outpatient provider notes. Discussed with the Sister and the Patient If needed will start aggressive treatment and send the patient to ICU Will discuss with the Family members Prognosis is guarded Vital Signs: Date Time Temp Pulse Resp B/P (MAP) Pulse Ox O2 Delivery O2 Flow Rate FiO2 03/29/17 16:00 Nasal Cannula 2.0 03/29/17 16:00 36.4 66 20 118/68 (85) 100 Nasal Cannula 2.0 03/29/17 14:00 63 18 118/68 (85) 100 Nasal Cannula 2.0 03/29/17 12:00 Nasal Cannula 2.0 03/29/17 11:15 36.7 87 18 91/57 (68) 100 Nasal Cannula 2.0 03/29/17 08:49 Nasal Cannula 2.0 03/29/17 08:00 Nasal Cannula 2.0 03/29/17 07:58 36.5 76 18 122/71 (88) 99 Nasal Cannula 2.0 03/29/17 04:00 Nasal Cannula 2.0 03/29/17 02:46 36.4 56 18 96/55 (69) 100 Nasal Cannula 3.0 03/29/17 00:19 36.4 83 21 113/72 (86) 100 Nasal Cannula 3.0 03/29/17 00:00 Nasal Cannula 3.0 03/28/17 20:00 99 Nasal Cannula 3.0 03/28/17 19:26 36.3 90 20 105/63 (77) 99 Nasal Cannula 3.0 Lab Results: Results Past 24 Hours Test 03/28/17 20:05 03/29/17 00:41 03/29/17 06:05 03/29/17 06:56 Range/Units Bedside Glucose 165 146 70-99 mg/dl Influenza Type A (RT-PCR) Neg for Influ A NEG Influenza Type B (RT-PCR) Neg for Influ B NEG Creatinine 2.00 0.60-1.40 mg/dl Est Creatinine Clear Calc Drug Dose 33.6 ml/min Estimated GFR () 37.0 Estimated GFR (Non- 31.9 Test 03/29/17 12:07 03/29/17 12:41 03/29/17 13:30 03/29/17 14:47 Range/Units Sodium Level 137 136-145 mmol/L Potassium Level 4.3 3.5-5.1 mmol/L Chloride Level 109 98-107 mmol/L Carbon Dioxide Level 18 21-32 mmol/L Anion Gap 10.0 3-11 mmol/L Blood Urea Nitrogen 19 7-18 mg/dl Creatinine 2.10 0.60-1.40 mg/dl Est Creatinine Clear Calc Drug Dose 32.0 ml/min Estimated GFR () 34.9 Estimated GFR (Non- 30.1 BUN/Creatinine Ratio 8.9 10-20 Random Glucose 174 70-99 mg/dl Calcium Level 7.4 8.5-10.1 mg/dl Magnesium Level 1.8 1.8-2.4 mg/dl Bedside Glucose 185 70-99 mg/dl White Blood Count 8.79 4.8-10.8 K/uL Red Blood Count 2.23 4.7-6.1 M/uL Hemoglobin 7.5 14.0-18.0 g/dL Hematocrit 21.9 42-52 % Mean Corpuscular Volume 98.2 80-100 fL Mean Corpuscular Hemoglobin 33.6 25-34 pg Mean Corpuscular Hemoglobin Concent 34.2 32-36 g/dl RDW Standard Deviation 70.6 36.4-46.3 fL RDW Coefficient of Variation 21.2 11.5-14.5 % Platelet Count 179 130-400 K/uL Mean Platelet Volume 11.6 7.4-10.4 fL Test 03/29/17 16:28 Range/Units Bedside Glucose 148 70-99 mg/dl
[2017-03-29] MEDS: INSULIN GLARGINE SOLOSTAR 100 UNITS/ML 3 ML PEN SC SCH (20:32)
[2017-03-30] VITALS (13 sets, daily range): BP systolic 92–132; BP diastolic 53–86; PULSE 65–88; TEMP 36.4–37; O2SAT 93–100
[2017-03-30] MEDS: LINEZOLID / D5W 600 MG in PREMIXED IN D5W 300 ML IV SCH ×2 (01:55→14:32)
[2017-03-30] MEDS: LEVOTHYROXINE 50 MCG TAB PO SCH (06:10)
[2017-03-30 07:07] LABS: CREATININE 1.8 mg/dl (0.60-1.40)
[2017-03-30] MEDS: PANTOprazole SOD 40 MG TAB PO SCH (08:34)
[2017-03-30] MEDS: RANITIDINE HCL 150 MG TAB PO SCH ×2 (08:34→20:07)
[2017-03-30] MEDS: GABAPENTIN 100 MG CAP PO SCH ×3 (08:35→20:07)
[2017-03-30] MEDS: INSULIN ASPART 100 UNITS/ML 3 ML PEN SC SCH ×4 (08:38→20:06)
[2017-03-30] MEDS: ACETAMINOPHEN 325 MG TAB PO PRN (08:40)
--- NOTE | 2017-03-30 09:59 | Progress Note ---
Subjective Date of Service: Mar 30, 2017. Subjective remains on zyvox. tolerating well. no fever. wbc 8.7. blood cultures negative x 2. urine with MSSA - resistant to tetracycline only. On day #5 zyvox. additional abx stopped yesterday. pressors being weaned. no overnight events. Problem List Medical Problems: (1) Altered mental status Status: Acute (2) Elevated serum creatinine Status: Acute (3) Hypotension Status: Acute (4) Hypotension Status: Acute (5) Pneumonia Status: Acute (6) Sepsis Status: Acute (7) Sepsis Status: Acute (8) Severe anemia Status: Acute (9) Tachycardia Status: Acute (10) TIA (transient ischemic attack) Status: Acute Objective Vital Signs Date Time Temp Pulse Resp B/P (MAP) Pulse Ox O2 Delivery O2 Flow Rate FiO2 03/30/17 09:09 85 128/85 (99) 03/30/17 08:00 Room Air 03/30/17 06:47 36.9 78 20 128/76 (93) 100 Room Air 03/30/17 05:00 36.7 74 74 132/79 (96) 97 Room Air 03/30/17 05:00 97 Room Air 03/30/17 04:05 36.8 73 18 124/75 (91) 95 Room Air 03/30/17 02:35 36.5 72 16 117/74 96 03/30/17 01:30 36.5 67 16 103/66 95 03/30/17 01:00 36.4 65 16 92/53 95 03/30/17 00:30 36.4 66 16 116/73 96 03/30/17 00:01 36.5 71 16 108/71 93 03/30/17 00:01 94 Room Air 03/29/17 23:44 36.4 73 16 123/61 93 03/29/17 23:00 36.5 74 20 104/64 94 03/29/17 21:58 36.4 78 18 108/67 95 03/29/17 21:28 36.5 70 18 96/60 93 03/29/17 21:13 36.4 79 18 106/68 100 03/29/17 20:00 Room Air 03/29/17 19:58 36.4 77 18 93/59 (70) 99 Room Air 03/29/17 16:00 Nasal Cannula 2.0 03/29/17 16:00 36.4 66 20 118/68 (85) 100 Nasal Cannula 2.0 03/29/17 14:00 63 18 118/68 (85) 100 Nasal Cannula 2.0 03/29/17 12:00 Nasal Cannula 2.0 03/29/17 11:15 36.7 87 18 91/57 (68) 100 Nasal Cannula 2.0 Laboratory Results Item Value Date Time Urine Culture - Preliminary Resulted 03/27/17 0850 Urine,Catheterized Staphylococcus Aureus Blood Culture - Preliminary Resulted 03/26/17 1100 Blood NO GROWTH TO DATE. Blood Culture - Preliminary Resulted 03/26/17 1025 Blood NO GROWTH TO DATE. Last 24 Hours Test 03/29/17 12:07 03/29/17 12:41 03/29/17 13:30 03/29/17 14:47 Sodium Level 137 mmol/L Potassium Level mmol/L 4.3 mmol/L Chloride Level 109 mmol/L Carbon Dioxide Level 18 mmol/L Anion Gap 10.0 mmol/L Blood Urea Nitrogen 19 mg/dl Creatinine 2.10 mg/dl Est Creatinine Clear Calc Drug Dose 32.0 ml/min Estimated GFR () 34.9 Estimated GFR (Non- 30.1 BUN/Creatinine Ratio 8.9 Random Glucose 174 mg/dl Calcium Level 7.4 mg/dl Magnesium Level mg/dl 1.8 mg/dl Bedside Glucose 185 mg/dl White Blood Count 8.79 K/uL Red Blood Count 2.23 M/uL Hemoglobin 7.5 g/dL Hematocrit 21.9 % Mean Corpuscular Volume 98.2 fL Mean Corpuscular Hemoglobin 33.6 pg Mean Corpuscular Hemoglobin Concent 34.2 g/dl RDW Standard Deviation 70.6 fL RDW Coefficient of Variation 21.2 % Platelet Count 179 K/uL Mean Platelet Volume 11.6 fL Test 03/29/17 16:28 03/29/17 19:59 03/30/17 06:14 03/30/17 06:21 Bedside Glucose 148 mg/dl 139 mg/dl 106 mg/dl Creatinine 1.80 mg/dl Est Creatinine Clear Calc Drug Dose 37.4 ml/min Estimated GFR () 42.0 Estimated GFR (Non- 36.3 Test 03/30/17 09:50 Assessment and Plan (1) UTI (urinary tract infection) Assessment & Plan: would continue zyvox for 2 more days, then stop. blood cultures negative. No new ID recs at this time, thank you
[2017-03-30 12:03] LABS: HEMATOCRIT 33.9 % (42-52)
[2017-03-30 13:06] LABS: LEGIONELLA ANTIGEN NOT DETECTED (NOT DETECTED)
--- NOTE | 2017-03-30 13:46 | DIAGNOSTIC IMAGING REPORT ---
R VENOUS DOPPLER UPR EXT UNIL CLINICAL HISTORY: 76 years-old Male presenting with rt upper extremity dvt?. TECHNIQUE: Real-time grayscale and color and spectral Doppler ultrasound imaging of the veins of the right upper extremity was performed. Compression and augmentation were also utilized. COMPARISON: 06/29/2014. FINDINGS: Right: Internal jugular vein: Patent. Subclavian vein: Patent. Axillary vein: Limited visualization Basilic vein: Patent. Brachial vein: Patent. Cephalic vein: Patent. Radial vein: Limited visualization. Ulnar vein: Limited visualization. Other: Subcutaneous edema noted in the forearm.. IMPRESSION: No gross evidence of deep venous thrombosis allowing for limited sonographic windows. Limited visualization of the veins of the forearm secondary to edema. Electronically signed by: Wali Garcia M.D. 03/30/2017 1:45 PM Dictated Date/Time: 03/30/2017 1:42 PM
--- NOTE | 2017-03-30 17:06 | Progress Note ---
Internal Med Progress Note Date of Service: Mar 30, 2017. Provider Documentation: SUBJECTIVE: complains of pain in right upper extremity afebrile eating ok denies sob or cough OBJECTIVE: Vital Signs-as noted below Exam: General-alert and awake. not in distress ENT-normal hearing Neck-no neck masses supple Lungs-cta b/l no wheezing or crackles Heart-s1 and s2 heard regular rate and rhythm no murmurs Abdomen-soft bowel sounds present non tender no distension Extremities-right upper extremity edematous, no erythema Neuro-alert and awake moves extremities Lab data as noted below. 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 presents with symptomatic anemia, neutropenia and HCAP Septic Shock Has MDS and Neutropenia with Fever and Pneumonia most likely UTI was on Levaquin,Cefepime and Zyvox Blood cultures-Negative Urine culture -Staph Aureus,(MSSA) was requiring iv dopamine drip which is stopped today currently only on iv zyvox hemodynamics stable will monitor Pancytopenia with symptomatic anemia and neutropenia. Has MDS-under care of Dr Person and refused Bone Marrow Biopsy in past had total of 4units prbc so far hb11 today f/u labs Right upper extremity edema no dvt will monitor Cerebral palsy-at baseline, mentating clearly. No encephalopathy-competent to make his own medical decisions. Requires assistance in ADLS pt/ot CKD Stage III-at baseline with a slight increase from last hospital admission. cr 1.8 today will monitor Hypothyroidism- on Synthroid DMII- On Lantus and ISS will monitor. DVT prophy-SCDs, chemoprophylaxis is contraindicated now DNR per H and P DISPOSITION to be determined pt/ot social service for d/c planning Vital Signs: Date Time Temp Pulse Resp B/P (MAP) Pulse Ox O2 Delivery O2 Flow Rate FiO2 03/30/17 16:14 36.7 68 14 118/78 (91) 99 Room Air 03/30/17 16:10 99 Room Air 03/30/17 16:00 Room Air 03/30/17 12:00 Room Air 03/30/17 11:34 37.0 88 18 129/86 (100) 96 03/30/17 09:09 85 128/85 (99) 03/30/17 08:00 Room Air 03/30/17 06:47 36.9 78 20 128/76 (93) 100 Room Air 03/30/17 05:00 36.7 74 74 132/79 (96) 97 Room Air 03/30/17 05:00 97 Room Air 03/30/17 04:05 36.8 73 18 124/75 (91) 95 Room Air 03/30/17 02:35 36.5 72 16 117/74 96 03/30/17 01:30 36.5 67 16 103/66 95 03/30/17 01:00 36.4 65 16 92/53 95 03/30/17 00:30 36.4 66 16 116/73 96 03/30/17 00:01 36.5 71 16 108/71 93 03/30/17 00:01 94 Room Air 03/29/17 23:44 36.4 73 16 123/61 93 03/29/17 23:00 36.5 74 20 104/64 94 03/29/17 21:58 36.4 78 18 108/67 95 03/29/17 21:28 36.5 70 18 96/60 93 03/29/17 21:13 36.4 79 18 106/68 100 03/29/17 20:00 Room Air 03/29/17 19:58 36.4 77 18 93/59 (70) 99 Room Air Lab Results: Results Past 24 Hours Test 03/29/17 19:59 03/30/17 06:14 03/30/17 06:21 03/30/17 11:09 Range/Units Bedside Glucose 139 106 127 70-99 mg/dl Hemoglobin 11.7 14.0-18.0 g/dL Hematocrit 33.9 42-52 % Creatinine 1.80 0.60-1.40 mg/dl Est Creatinine Clear Calc Drug Dose 37.4 ml/min Estimated GFR () 42.0 Estimated GFR (Non- 36.3 Test 03/30/17 16:22 Range/Units Bedside Glucose 126 70-99 mg/dl
[2017-03-30] MEDS: INSULIN GLARGINE SOLOSTAR 100 UNITS/ML 3 ML PEN SC SCH (20:26)
[2017-03-31] VITALS (7 sets, daily range): BP systolic 92–144; BP diastolic 54–83; PULSE 62–90; TEMP 36.5–36.8; O2SAT 96–99
[2017-03-31] MEDS: LINEZOLID / D5W 600 MG in PREMIXED IN D5W 300 ML IV SCH (02:21)
[2017-03-31] MEDS: ACETAMINOPHEN 325 MG TAB PO PRN (04:39)
[2017-03-31] MEDS: LEVOTHYROXINE 50 MCG TAB PO SCH (05:46)
[2017-03-31] MEDS: INSULIN ASPART 100 UNITS/ML 3 ML PEN SC SCH ×4 (07:00→20:47)
[2017-03-31] MEDS: PANTOprazole SOD 40 MG TAB PO SCH (07:52)
[2017-03-31] MEDS: RANITIDINE HCL 150 MG TAB PO SCH ×2 (07:52→20:46)
[2017-03-31] MEDS: GABAPENTIN 100 MG CAP PO SCH ×3 (07:53→20:46)
[2017-03-31 08:07] LABS: MEAN CORPUSCULAR HGB CONC 32.6 g/dl (32-36); MEAN PLATELET VOLUME 11.9 fL (7.4-10.4); PLATELET COUNT 163 K/uL (130-400)
[2017-03-31] MEDS: OXYCODONE HCL IR 5 MG TAB (IMMEDIATE RELEASE) PO PRN ×2 (08:09→15:40)
[2017-03-31 08:38] LABS: BUN/CREATININE RATIO 7.8 (10-20); CALCIUM 8.3 mg/dl (8.5-10.1); CREATININE 1.7 mg/dl (0.60-1.40); MAGNESIUM 1.6 mg/dl (1.8-2.4); POTASSIUM 3.9 mmol/L (3.5-5.1)
[2017-03-31 08:59] LABS: HEMATOCRIT 33.7 % (42-52); MEAN CELL VOLUME 94.9 fL (80-100); RED BLOOD COUNT 3.55 M/uL (4.7-6.1); WHITE BLOOD COUNT 10.99 K/uL (4.8-10.8)
[2017-03-31] MEDS ORDERED: MENTHOL METHYL SALICYLATE TOP SCH (09:00)
[2017-03-31] MEDS ORDERED: MAGNESIUM SULFATE 1GM / D5W 1 GM in PREMIXED IN D5W 100 ML IV ONE (09:00)
[2017-03-31 09:04] LABS: ANISOCYTOSIS PRESENT; SMUDGE CELLS PRESENT
[2017-03-31 09:13] LABS: COMPLETE YES; EOSINOPHIL % 32.8 %; LYMPH ABS # 4.17 K/uL (1.2-3.4); LYMPHOCYTE % 37.9 %; NEUTROPHILS % 3.4 %
[2017-03-31] MEDS ORDERED: CETIRIZINE HCL 10 MG TAB PO ONE (09:30)
[2017-03-31] MEDS: TRIAMCINOLONE ACET 0.5% CR 15 GM TUBE EXT SCH ×2 (09:49→20:45)
--- NOTE | 2017-03-31 14:47 | Progress Note ---
Internal Med Progress Note Date of Service: Mar 31, 2017. Provider Documentation: SUBJECTIVE: pain in right hand better no cough no sob no nausea want to be discharged afebrile OBJECTIVE: Vital Signs-as noted below Exam: General-alert and awake. not in distress ENT-normal hearing Neck-no neck masses supple Lungs-cta b/l no wheezing or crackles Heart-s1 and s2 heard regular rate and rhythm no murmurs Abdomen-soft bowel sounds present non tender no distension Extremities-right upper extremity edematous, no erythema Neuro-alert and awake moves extremities Lab data as noted below. 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 presents with symptomatic anemia, neutropenia and HCAP Septic Shock Has MDS and Neutropenia with Fever and Pneumonia most likely UTI was on Levaquin,Cefepime and Zyvox Blood cultures-Negative Urine culture -Staph Aureus,(MSSA) was requiring iv dopamine drip which is stopped on 03/30/17 currently only on iv zyvox changed to po today hemodynamics stable will monitor Pancytopenia with symptomatic anemia and neutropenia. Has MDS-under care of Dr Person and refused Bone Marrow Biopsy in past had total of 4units prbc so far hb11 today f/u labs Right upper extremity edema no dvt stable will monitor Cerebral palsy-at baseline, mentating clearly. No encephalopathy-competent to make his own medical decisions. Requires assistance in ADLS pt/ot CKD Stage III-at baseline with a slight increase from last hospital admission. cr 1.7 today will monitor Hypothyroidism- on Synthroid DMII- On Lantus and ISS will monitor. DVT prophy-SCDs, chemoprophylaxis is contraindicated now DNR per H and P DISPOSITION possible d/c in am pt/ot social service for d/c planning Vital Signs: Date Time Temp Pulse Resp B/P (MAP) Pulse Ox O2 Delivery O2 Flow Rate FiO2 03/31/17 12:03 Room Air 03/31/17 11:22 36.5 63 20 92/54 (67) 97 Room Air 03/31/17 08:05 Room Air 03/31/17 07:23 36.8 90 20 142/83 (102) 97 Room Air 03/31/17 04:40 Room Air 03/31/17 03:39 36.8 79 20 142/78 (99) 97 Room Air 03/31/17 00:30 Room Air 03/31/17 00:10 36.5 69 19 114/76 (89) 99 Room Air 03/30/17 20:00 Room Air 03/30/17 18:54 36.4 71 18 107/76 (86) 98 Room Air 03/30/17 16:14 36.7 68 14 118/78 (91) 99 Room Air 03/30/17 16:10 99 Room Air 03/30/17 16:00 Room Air Lab Results: Results Past 24 Hours Test 03/30/17 16:22 03/30/17 20:01 03/31/17 06:21 03/31/17 07:17 Range/Units Bedside Glucose 126 121 76 70-99 mg/dl White Blood Count 10.99 4.8-10.8 K/uL Red Blood Count 3.55 4.7-6.1 M/uL Hemoglobin 11.0 14.0-18.0 g/dL Hematocrit 33.7 42-52 % Mean Corpuscular Volume 94.9 80-100 fL Mean Corpuscular Hemoglobin 31.0 25-34 pg Mean Corpuscular Hemoglobin Concent 32.6 32-36 g/dl Platelet Count 163 130-400 K/uL Mean Platelet Volume 11.9 7.4-10.4 fL RDW Standard Deviation 60.9 36.4-46.3 fL RDW Coefficient of Variation 19.7 11.5-14.5 % Neutrophils % (Manual) 3.4 % Lymphocytes % (Manual) 37.9 % Monocytes % (Manual) 25.9 % Eosinophils % (Manual) 32.8 % Neutrophils # (Manual) 0.37 1.4-6.5 K/uL Total Absolute Neutrophils 0.37 1.4-6.5 K/uL Lymphocytes # (Manual) 4.17 1.2-3.4 K/uL Total Absolute Lymphocytes 4.17 1.2-3.4 K/uL Monocytes # (Manual) 2.85 0.11-0.59 K/uL Eosinophils # (Manual) 3.60 0-0.5 K/uL Smudge Cells PRESENT Anisocytosis PRESENT Sodium Level 140 136-145 mmol/L Potassium Level 3.9 3.5-5.1 mmol/L Chloride Level 108 98-107 mmol/L Carbon Dioxide Level 22 21-32 mmol/L Anion Gap 10.0 3-11 mmol/L Blood Urea Nitrogen 13 7-18 mg/dl Creatinine 1.70 0.60-1.40 mg/dl Est Creatinine Clear Calc Drug Dose 39.3 ml/min Estimated GFR () 45.0 Estimated GFR (Non- 38.9 BUN/Creatinine Ratio 7.8 10-20 Random Glucose 74 70-99 mg/dl Calcium Level 8.3 8.5-10.1 mg/dl Magnesium Level 1.6 1.8-2.4 mg/dl Test 03/31/17 10:45 Range/Units Bedside Glucose 110 70-99 mg/dl
[2017-03-31] MEDS: [UNRECOGNIZED DRUG - OTHER] SCH ×2 (15:22→23:34)
[2017-03-31] MEDS ORDERED: NURSING VERBAL MED ORDER ONE (16:00)
[2017-03-31] MEDS ORDERED: MENTHOL-ZINC OXIDE 360 APPLN/120 GM TUBE EXT PRN (16:30)
[2017-03-31] MEDS ORDERED: LABETALOL HCL IV 5 MG/ML 20ML IV ONE (17:30)
[2017-03-31] MEDS: LINEZOLID 600 MG TAB PO SCH (18:19)
[2017-03-31] MEDS: INSULIN GLARGINE SOLOSTAR 100 UNITS/ML 3 ML PEN SC SCH (20:52)
[2017-04-01 03:03] VITALS: BP 137/86; PULSE 82; TEMP 36.8; O2SAT 97
[2017-04-01] MEDS: LINEZOLID 600 MG TAB PO SCH ×2 (05:57→07:53)
[2017-04-01] MEDS: LEVOTHYROXINE 50 MCG TAB PO SCH (05:57)
[2017-04-01 06:47] LABS: MEAN CORPUSCULAR HGB CONC 35.1 g/dl (32-36); MEAN PLATELET VOLUME 11.7 fL (7.4-10.4); PLATELET COUNT 139 K/uL (130-400)
[2017-04-01] MEDS: INSULIN ASPART 100 UNITS/ML 3 ML PEN SC SCH ×2 (07:00→11:00)
[2017-04-01 07:22] LABS: BUN/CREATININE RATIO 8.7 (10-20); CALCIUM 8.1 mg/dl (8.5-10.1); CREATININE 1.6 mg/dl (0.60-1.40); MAGNESIUM 1.9 mg/dl (1.8-2.4); POTASSIUM 4.2 mmol/L (3.5-5.1)
[2017-04-01] MEDS: [UNRECOGNIZED DRUG - OTHER] SCH (07:52)
[2017-04-01] MEDS: GABAPENTIN 100 MG CAP PO SCH ×2 (07:53→11:59)
[2017-04-01] MEDS: RANITIDINE HCL 150 MG TAB PO SCH (07:53)
[2017-04-01] MEDS: PANTOprazole SOD 40 MG TAB PO SCH (07:53)
[2017-04-01] MEDS: TRIAMCINOLONE ACET 0.5% CR 15 GM TUBE EXT SCH (07:54)
[2017-04-01 08:18] LABS: HEMATOCRIT 32.5 % (42-52); MEAN CELL VOLUME 94.8 fL (80-100); MEAN CORPUSCULAR HEMOGLOBIN 33.2 pg (25-34); RED BLOOD COUNT 3.43 M/uL (4.7-6.1); WHITE BLOOD COUNT 11.92 K/uL (4.8-10.8)
[2017-04-01 08:19] VITALS: BP 166/90; PULSE 81; TEMP 37; O2SAT 99
[2017-04-01 08:22] LABS: ANISOCYTOSIS PRESENT
[2017-04-01 08:25] LABS: BASO ABS # 0.81 K/uL (0-0.2); BASOPHIL % 6.8 % (0-2); COMPLETE YES; EOSINOPHIL % 29.9 %; LYMPH ABS # 4.59 K/uL (1.2-3.4); LYMPHOCYTE % 38.5 %
[2017-04-01] MEDS ORDERED: TIZA4CAP PO (08:57)
[2017-04-01] MEDS ORDERED: AMB5 PO (08:57)
[2017-04-01] MEDS ORDERED: OXYC1TAB3 PO (08:57)
[2017-04-01] MEDS ORDERED: SULF800T23 PO (08:57)
--- NOTE | 2017-04-01 09:00 | Progress Note ---
Internal Med Progress Note Date of Service: Apr 01, 2017. Provider Documentation: SUBJECTIVE: resting comfortably denies sob or cough no nausea ate breakfast slept fine want to be discharged OBJECTIVE: Vital Signs-as noted below Exam: General-alert and awake. not in distress ENT-normal hearing Neck-no neck masses supple Lungs-cta b/l no wheezing or crackles Heart-s1 and s2 heard regular rate and rhythm no murmurs Abdomen-soft bowel sounds present non tender no distension Extremities-right upper extremity edematous-improved, no erythema Neuro-alert and awake moves extremities Lab data as noted below. 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 presents with symptomatic anemia, neutropenia and HCAP Septic Shock Has MDS and Neutropenia with Fever and Pneumonia most likely UTI was on Levaquin,Cefepime and Zyvox Blood cultures-Negative Urine culture -Staph Aureus,(MSSA) was requiring iv dopamine drip which is stopped on 03/30/17 currently only on iv zyvox changed to po hemodynamics stable discharged on po Bactrim to complete one week course Pancytopenia with symptomatic anemia and neutropenia. 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 No encephalopathy-competent to make his own medical decisions. Requires assistance in ADLS pt/ot CKD Stage III-at baseline with a slight increase from last hospital admission. cr 1.6 today will monitor Hypothyroidism- on Synthroid DMII- On Lantus and ISS d/c on home meds. discharging to [facility] today Vital Signs: Date Time Temp Pulse Resp B/P (MAP) Pulse Ox O2 Delivery O2 Flow Rate FiO2 04/01/17 08:19 37.0 81 16 166/90 (115) 99 Room Air 04/01/17 04:00 Room Air 04/01/17 03:03 36.8 82 20 137/86 (103) 97 Room Air 04/01/17 00:00 Room Air 03/31/17 22:43 36.7 62 20 103/68 (80) 96 Room Air 03/31/17 20:45 Room Air 03/31/17 19:25 36.8 76 20 125/69 (87) 98 Room Air 03/31/17 16:02 Room Air 03/31/17 15:53 36.6 81 18 144/81 (102) 96 Room Air 03/31/17 12:03 Room Air 03/31/17 11:22 36.5 63 20 92/54 (67) 97 Room Air Lab Results: Results Past 24 Hours Test 03/31/17 10:45 03/31/17 16:25 03/31/17 20:33 04/01/17 06:22 Range/Units Bedside Glucose 110 89 83 67 70-99 mg/dl Test 04/01/17 06:23 04/01/17 06:30 Range/Units Bedside Glucose 70 70-99 mg/dl White Blood Count 11.92 4.8-10.8 K/uL Red Blood Count 3.43 4.7-6.1 M/uL Hemoglobin 11.4 14.0-18.0 g/dL Hematocrit 32.5 42-52 % Mean Corpuscular Volume 94.8 80-100 fL Mean Corpuscular Hemoglobin 33.2 25-34 pg Mean Corpuscular Hemoglobin Concent 35.1 32-36 g/dl Platelet Count 139 130-400 K/uL Mean Platelet Volume 11.7 7.4-10.4 fL RDW Standard Deviation 59.7 36.4-46.3 fL RDW Coefficient of Variation 19.6 11.5-14.5 % Neutrophils % (Manual) 0.0 % Lymphocytes % (Manual) 38.5 % Monocytes % (Manual) 24.8 % Eosinophils % (Manual) 29.9 % Basophils % (Manual) 6.8 0-2 % Neutrophils # (Manual) 0.00 1.4-6.5 K/uL Total Absolute Neutrophils 0.00 1.4-6.5 K/uL Lymphocytes # (Manual) 4.59 1.2-3.4 K/uL Total Absolute Lymphocytes 4.59 1.2-3.4 K/uL Monocytes # (Manual) 2.96 0.11-0.59 K/uL Eosinophils # (Manual) 3.56 0-0.5 K/uL Basophils # (Manual) 0.81 0-0.2 K/uL Anisocytosis PRESENT Sodium Level 142 136-145 mmol/L Potassium Level 4.2 3.5-5.1 mmol/L Chloride Level 109 98-107 mmol/L Carbon Dioxide Level 23 21-32 mmol/L Anion Gap 10.0 3-11 mmol/L Blood Urea Nitrogen 14 7-18 mg/dl Creatinine 1.60 0.60-1.40 mg/dl Est Creatinine Clear Calc Drug Dose 41.8 ml/min Estimated GFR () 48.5 Estimated GFR (Non- 41.8 BUN/Creatinine Ratio 8.7 10-20 Random Glucose 71 70-99 mg/dl Calcium Level 8.1 8.5-10.1 mg/dl Magnesium Level 1.9 1.8-2.4 mg/dl
--- NOTE | 2017-04-01 09:02 | Discharge Instructions ---
Discharge Instructions Date of Service Apr 01, 2017. Admission Reason for Admission: Symptomatic Anemia Discharge Discharge Diagnosis / Problem: septic shock, UTI, pancytopneina with anemia and neutropenia Discharge Goals Goal(s): Decrease discomfort, Improve function Activity Recommendations Activity Level: Assistance Required Therapies: Physical Therapy, 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 Therapy . Additional Information Patient informed of condition: Yes Advance Directives: Yes DNR: Yes Level of Care: Skilled Communicable Disease: No Prognosis: Stable Puentes Catheter: No Current Hospital Diet Patient's current hospital diet: Diabetes Type 2 Diet Discharge Diet Recommended Diet: AHA Diet (Heart Healthy), Diabetes Type 2 Diet Pending Studies Studies pending at discharge: no Physician Orders On Transfer Special Precautions: FALL AND ASPIRATION PRECAUTIONS Vital Signs: EVERY 8HRS Laboratory Results Hemoglobin A1c Test 03/27/17 09:01 Range/Units Estimated Average Glucose 169 mg/dl Hemoglobin A1c 7.5 H 4.5-5.6 % Medical Emergencies . Who to Call and When: Medical Emergencies: If at any time you feel your situation is an emergency, please call 911 immediately. . Non-Emergent Contact Non-Emergency issues call your: Primary Care Provider . . "Provider Documentation" section prepared by Stanley Jade. . Core Measure Problem Core Measures: None
--- NOTE | 2017-04-01 09:07 | Discharge Summary ---
Discharge Summary Date of Service Apr 01, 2017. Discharge Summary Admission Date: Mar 26, 2017 at 14:07 Discharge Date: Apr 01, 2017 Discharge Disposition: [facility] facility Principal Diagnosis: SEPTIC SHOCK UTI PANCYTOPENIA WITH ANEMIA AND NEUTROPENIA Secondary Diagnoses/Problems: (1) Bone marrow disorder Status: Chronic (2) Cerebral palsy Status: Chronic (3) Chronic respiratory failure with hypoxia Status: Chronic (4) Chronic tetraplegia Status: Chronic (5) CKD (chronic kidney disease) stage 3, GFR 30-59 ml/min Status: Chronic (6) DMII (diabetes mellitus, type 2) Status: Chronic (7) GERD (gastroesophageal reflux disease) Status: Chronic (8) Hypothyroidism Status: Chronic Procedures: CXR:03/26/17 Small parenchymal infiltrate medial aspect left base. CT HEA1. Age-related change. 2. No acute intracranial abnormality. 3. Mild mucosal thickening of the ethmoid and sphenoid sinuses. CT ABD/PELVIS: 1. Multiple gallstones within the region of the gallbladder neck. 2. Several small nonobstructing renal calcifications. 3.. Mild left and to a lesser extent right basilar infiltrative/interstitial change. 4. Otherwise negative study. 5. Considerable degenerative changes lumbar spine. CXR:03/28/17 Improved aeration within the left lung base. A linear density within the left lower lobe favor subsegmental atelectasis. RT UPPER EXTREMITY DOPPLER:No gross evidence of deep venous thrombosis allowing for limited sonographic windows. Limited visualization of the veins of the forearm secondary to edema. Consultations: ID Medication Reconciliation New Medications: Sulfamethoxazole-Trimethoprim (Bactrim Ds 800MG/160MG) 1 Tab Tab 1 TAB PO BID for 2 Days, #4 TAB Continued Medications: Acetaminophen Tab (Tylenol) 325 Mg Tab 650 MG PO Q4 PRN for Fever TEMP >100 , MILD-SEVERE Aspirin (Aspirin) 81 Mg Tab 81 MG PO DAILY Bisacodyl (Bisacodyl) 10 Mg Sup 1 SUPP TX UD PRN for if no bm x 5 daysa and mom ine Camphor & Menthol (Men-Phor) 1 Lot Lot 1 APPLN TOP Q2H PRN for Itching APPLY TO BODY Gabapentin (Neurontin) 100 Mg Cap 200 MG PO AMPM Gabapentin (Neurontin) 100 Mg Cap 100 MG PO NOON Home O2 Therapy (Oxygen) Gas 2-4 LITERS NA PRN *TITRATE TO KEEP O2 ABOVE 90%* Insulin Glargine (Lantus Solostar) 100 Unit/Ml Inj 10 UNITS SQ HS, VIAL Ipratropium-Albuterol (Duoneb) 3 Ml Nebu 1 TREATMENT INH Q4H PRN for Wheezing Ketoconazole (Topical) (Ketoconazole) 2 % Sha 1 APPLN TOP 2XWK MONDAY & MONDAY Lansoprazole (Prevacid) 15 Mg Cap 1 CAP PO DAILY for 30 Days, #30 CAP 3 Refills Please give 30 minutes prior to first meal of day Levothyroxine Sodium (Levothyroxine Sodium) 50 Mcg Tab 1 TAB PO DAILY for 30 Days, #30 TAB 5 Refills Menthol (Mouth-Throat) ([place] Cough Drops) 7 Mg Jossie 1 DROP PO Q2 PRN for COUGH/SORE THROAT Menthol-Methyl Salicylate (Juliette (Icy Hot Extra Strength) 1 Cre Cre 1 APPLN TOP PRN APPLY TO RIGHT UPPER ARM & ELBOW PRN Ondansetron Hcl (Zofran) 4 Mg Tab 1 TAB PO DAILY PRN for Nausea or Vomiting, #10 TAB 1 Refill Oxycodone Ir (Roxicodone Ir) 5 Mg Tab 5 MG PO Q6H PRN for MOD/SVRpain, #14 TAB (This prescription has been renewed) Polyethylene Glycol 3350 (Miralax) 1 Pow Pow 17 GM PO DAILY Ranitidine (Zantac) 150 Mg Tab 150 MG PO BID Sodium Phosphate/Biphosphate (Fleet Enema) Chastity 1 EA TX UD PRN for no bm x 6 days and dulcolax in, BTL Tizanidine (Zanaflex) 4 Mg Cap 4 MG PO TID, #10 (This prescription has been renewed) Triamcinolone Acet (Triamcinolone Acetonide) 45 Appln/15 Gm Cr 1 APPLN TOP BID, #15 GM 1 Refill Zolpidem Tartrate (Zolpidem Tartrate) 5 Mg Tab 5 MG PO HS PRN for Insomnia, #10 TAB (This prescription has been renewed) Admission Information HPI (per Admitting provider): The patient is a 76 yo M with permanent residence at [facility] who presents after worsening lethargy and an apneic episode which lasted 10 seconds per records. He was known to have an H/H 6.8/20.8 on 03/22 and the PA who regularly sees him over there had recommended that he come to the hospital, however, at that time the patient refused saying if he became symptomatic he promised to come in. 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 This patient has also wavered on his treatment status where he was recently declared comfort care only, but then wanted to still receive treatments such as antibiotics, blood transfusions and to be able to come to the hospital if needed. Therefore , he is not on Hospice at this point, but does state to me that he is a DNR which is in line with his code status on prior admission. In the ER, workup revealed neutropenia without fever, h/h 11/16, and a new infiltrate on the left base> r base. He admits to coughing and chills that just began today. He also admits to lightheadedness but no fever or chest pain. He states that his jaw hurts on the L side and this just began this morning. He reports constipation that is well treated with medication. He reports a slight headache. He denies palpitations, nausea, vomiting or bleeding. He reports that he has been eating well just not staying hydrated as much as he should. Physical Exam (per Admitting): General Appearance: WD/WN, no apparent distress, + pertinent finding ( cerebral palsy with tetraplegia) Head: normocephalic, atraumatic Eyes: normal inspection, sclerae normal Neck: supple, trachea midline Respiratory/Chest: lungs clear, normal breath sounds, no respiratory distress, no accessory muscle use Cardiovascular: regular rate, rhythm, no edema, no gallop, no JVD, no murmur , normal peripheral pulses Abdomen/GI: normal bowel sounds, non tender, soft Back: normal inspection Extremities/Musculoskelatal: + pertinent finding (partial paralysis of limbs -at his baseline) Neurologic/Psych: alert, normal mood/affect, oriented x 3, + pertinent finding (baseline motor deficits. ) Skin: normal color, warm/dry, no rash, + pertinent finding (per nurse report there is a pin-sized area of breakdown on his gluteal region, not an ulcer. I was unable to examine him because of his inabilities to move well/ discomfort) Hospital Course 76 yo M with pancytopenia and neutropenia known and incompletely worked up per patient request, but likely related to MDS vs leukemia presents with symptomatic anemia, neutropenia and HCAP Septic Shock Has MDS and Neutropenia with Fever and Pneumonia most likely UTI was on Levaquin,Cefepime and Zyvox Blood cultures-Negative Urine culture -Staph Aureus,(MSSA) was requiring iv dopamine drip which is stopped on 03/30/17 currently only on iv zyvox changed to po hemodynamics stable discharged on po Bactrim to complete one week course Pancytopenia with symptomatic anemia and neutropenia. 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 No encephalopathy-competent to make his own medical decisions. Requires assistance in ADLS pt/ot CKD Stage III-at baseline with a slight increase from last hospital admission. cr 1.6 today will monitor Hypothyroidism- on Synthroid DMII- On Lantus and ISS d/c on home meds. discharging to [facility] today Total time spent on discharge = 35MINUTES This includes examination of the patient, discharge planning, medication reconciliation, and communication with other providers. Discharge Instructions Discharge Instructions Date of Service Apr 01, 2017. Admission Reason for Admission: Symptomatic Anemia Discharge Discharge Diagnosis / Problem: septic shock, UTI, pancytopneina with anemia and neutropenia Discharge Goals Goal(s): Decrease discomfort, Improve function Activity Recommendations Activity Level: Assistance Required Therapies: Physical Therapy, 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 Therapy . Additional Information Patient informed of condition: Yes Advance Directives: Yes DNR: Yes Level of Care: Skilled Communicable Disease: No Prognosis: Stable Puentes Catheter: No Current Hospital Diet Patient's current hospital diet: Diabetes Type 2 Diet Discharge Diet Recommended Diet: AHA Diet (Heart Healthy), Diabetes Type 2 Diet Pending Studies Studies pending at discharge: no Physician Orders On Transfer Special Precautions: FALL AND ASPIRATION PRECAUTIONS Vital Signs: EVERY 8HRS Laboratory Results Hemoglobin A1c Test 03/27/17 09:01 Range/Units Estimated Average Glucose 169 mg/dl Hemoglobin A1c 7.5 H 4.5-5.6 % Medical Emergencies . Who to Call and When: Medical Emergencies: If at any time you feel your situation is an emergency, please call 911 immediately. . Non-Emergent Contact Non-Emergency issues call your: Primary Care Provider . . "Provider Documentation" section prepared by Stanley Jade. . Core Measure Problem Core Measures: None
[2017-04-01 09:22] VITALS: BP 166/90; PULSE 81; TEMP 37; O2SAT 99
== END 2017-04-01 14:37 | DRG 871 ==
LOC: EDBD 10:03 → C.EDB 10:06 → C.2T 14:07 → ENRESERV 14:36
PROVIDERS: ADMIT Hospitalist; ATTEND Internal Medicine
DX: A41.9 Sepsis, unspecified organism (principal); J18.9 Pneumonia, unspecified organism; R65.21 Severe sepsis with septic shock; G82.50 Quadriplegia, unspecified; D61.818 Other pancytopenia; J96.11 Chronic respiratory failure with hypoxia; N39.0 Urinary tract infection, site not specified; C95.90 Leukemia, unspecified not having achieved remission; G80.9 Cerebral palsy, unspecified; N18.3 Chronic kidney disease, stage 3 (moderate); E03.9 Hypothyroidism, unspecified; K59.09 Other constipation; E11.22 Type 2 diabetes mellitus with diabetic chronic kidney disease; Z66 Do not resuscitate; I95.9 Hypotension, unspecified; Z86.14 Personal history of Methicillin resistant Staphylococcus aureus infection; D46.9 Myelodysplastic syndrome, unspecified; K21.9 Gastro-esophageal reflux disease without esophagitis; R50.9 Fever, unspecified; T45.8X5A Adverse effect of other primarily systemic and hematological agents, initial encounter; R60.9 Edema, unspecified; B95.61 Methicillin susceptible Staphylococcus aureus infection as the cause of diseases classified elsewhere; Z87.891 Personal history of nicotine dependence; Z79.82 Long term (current) use of aspirin; Z79.4 Long term (current) use of insulin

== ENCOUNTER 2017-08-09 13:13 | Emergency (ER) | payer OTHER ==
[~2017-08-09] VITALS: Ht 165.1 cm; Wt 77.0 kg
[2017-08-09] VITALS (13 sets, daily range): BP systolic 99–147; BP diastolic 62–83; PULSE 73–88; TEMP 36.8–37.2; O2SAT 93–98; Ht 165.1 cm; Wt 77.0 kg
[~2017-08-09 13:13] MED LIST changes: +AMB5 PO; -CPR500 PO; -INSDGI SQ; +INSDGIPEN SQ; -KETO2SHA TOP; -LANS15CA6 PO; +LEVO50TA PO; -LEVO50TA6 PO; -LINICRE TOP; -MENT4GEL TOP; +MOML PO; -NVLG SQ; -ONDA4TAB46 PO; +ONDA4TAB65 PO; -OXYC-609 PO; +OXYC1TAB3 PO; +PRAM1LOT TOP; +SODI1ENE RE; -TERB1CRE10 TOP; -ZOLP5TAB PO; +[UNRECOGNIZED DRUG - CODE] TOP
[2017-08-09 14:10] LABS: INR 1.1 (0.9-1.1); PTT PATIENT 27.6 SECONDS (21.0-31.0)
[2017-08-09] MEDS ORDERED: HYDR-3124 PO (14:20)
[2017-08-09] MEDS ORDERED: BISA10SU7 RE (14:20)
[2017-08-09] MEDS ORDERED: ATV/1 PO (14:20)
[2017-08-09] MEDS ORDERED: DULO60CA44 PO (14:20)
[2017-08-09] MEDS ORDERED: LANS15CA15 PO (14:20)
[2017-08-09] MEDS ORDERED: GABA1CAP5 PO (14:20)
[2017-08-09] MEDS ORDERED: PRED-301 PO (14:20)
[2017-08-09 14:23] LABS: HEMOGLOBIN 6.4 g/dL (14.0-18.0); MEAN CELL VOLUME 91.8 fL (80-100); MEAN CORPUSCULAR HEMOGLOBIN 30.9 pg (25-34); MEAN CORPUSCULAR HGB CONC 33.7 g/dl (32-36); MEAN PLATELET VOLUME 11.2 fL (7.4-10.4); PLATELET COUNT 24 K/uL (130-400); RED CELL DISTRIBUTION WIDTH CV 24.9 % (11.5-14.5); RED CELL DISTRIBUTION WIDTH SD 51.1 fL (36.4-46.3); WHITE BLOOD COUNT 8.27 K/uL (4.8-10.8)
[2017-08-09] MEDS ORDERED: RXNS10 PO (14:26)
[2017-08-09 14:29] LABS: ALBUMIN 2.7 gm/dl (3.4-5.0); CREATININE 1.74 mg/dl (0.60-1.40); POTASSIUM 3.9 mmol/L (3.5-5.1)
[2017-08-09 14:31] LABS: TOTAL PROTEIN 7.8 gm/dl (6.4-8.2)
--- NOTE | 2017-08-09 14:31 | DIAGNOSTIC IMAGING REPORT ---
CHEST ONE VIEW PORTABLE CLINICAL HISTORY: ABDOMINAL PAIN/GI pain COMPARISON STUDY: 03/28/2017 FINDINGS: Mild stable cardia megaly. Chronic atelectatic change left base. Lungs otherwise are clear. There is a component of mild emphysematous change. IMPRESSION: Chronic change. Moderate stable cardiomegaly. No acute process. The above report was generated using voice recognition software. It may contain grammatical, syntax or spelling errors. Electronically signed by: Jacinto Tierney M.D. 08/09/2017 2:29 PM Dictated Date/Time: 08/09/2017 2:29 PM
--- NOTE | 2017-08-09 14:39 | EMERGENCY ROOM VISIT NOTE ---
History Report prepared by Sonia: Jon Hassan Under the Supervision of: Dr. Kavon Rodriguez D.O. First contact with patient: 13:04 Stated Complaint: ABNORMAL LABS History of Present Illness The patient is a 77 year old male who presents to the Emergency Room by EMS for evaluation of low hemoglobin levels. He is a resident at [facility], and had blood work drawn there today. The patient denies any abdominal pain, black or bloody stools, back pain, chest pain, or headache. He has no known history of GI bleed. Source of History: patient Onset: Today Quality: other (Low hemoglobin) Timing: constant Associated Symptoms: No headache, No chest pain, No abdominal pain, No back pain, No melena, No hematochezia Review of Systems See HPI for pertinent positives & negatives. A total of 10 systems reviewed and were otherwise negative. Past Medical & Surgical Medical Problems: (1) Anemia (2) Bone marrow disorder (3) Cerebral palsy (4) Chronic respiratory failure with hypoxia (5) Chronic tetraplegia (6) CKD (chronic kidney disease) stage 3, GFR 30-59 ml/min (7) DMII (diabetes mellitus, type 2) (8) Fever (9) GERD (gastroesophageal reflux disease) (10) Hypothyroidism (11) Symptomatic anemia (12) Syncope (13) UTI (urinary tract infection) Family History No pertinent family history Social History Smoking Status: Former Smoker Alcohol Use: none Drug Use: none Marital Status: Housing Status: residential Occupation Status: disabled Current/Historical Medications Scheduled Aspirin (Aspirin), 81 MG PO DAILY Camphor & Menthol (Men-Phor), 1 APPLN TOP QID Duloxetine Hcl (Cymbalta), 30 MG PO DAILY Home O2 Therapy (Oxygen), 2-4 LITERS NA PRN Insulin Glargine (Lantus Solostar), 10 UNITS SQ HS Lansoprazole (Prevacid), 15 MG PO DAILYBB Levothyroxine Sodium (Synthroid), 1 TAB PO DAILY Menthol (Mouth-Throat) ([place] Cough Drops), 1 DROP PO Q2H Polyethylene Glycol 3350 (Miralax), 17 GM PO DAILY Pramoxine Hcl (Sarna Sensitive Anti-Itch), 1 APPL TOP Q2H Prednisone (Prednisone), 5 MG PO DAILY Ranitidine (Zantac), 150 MG PO BID Sodium Phosphates (Fleet Enema Six Pack), 1 SUPP RE DIRECTED Tizanidine (Zanaflex), 4 MG PO TID Scheduled PRN Acetaminophen Tab (Tylenol), 650 MG PO Q4 PRN for Fever Bisacodyl (Bisac-Evac), 1 SUPP RE DAILY PRN for Constipation Camphor & Menthol (Men-Phor), 1 APPLN TOP Q2H PRN for Itching Gabapentin (Neurontin), 400 MG PO TID PRN for Neuropathic pain Hydroxyzine Hcl (Atarax), 25 MG PO Q6 PRN for Itching Ipratropium-Albuterol (Duoneb), 1 TREATMENT INH Q4H PRN for Wheezing Lorazepam (Ativan), 1 MG PO Q4 PRN for Anxiety Magnesium Hydroxide (Milk Of Magnesia), 30 ML PO DIRECTED PRN for Constipation Morphine Sulfate (Morphine Sulfate), 0.5 ML PO Q2H PRN for Pain Ondansetron Hcl (Zofran), 1 TAB PO Q6 PRN for Nausea or Vomiting Oxycodone Ir (Roxicodone Ir), 5 MG PO Q6H PRN for MOD/SVRpain Allergies Coded Allergies: Vancomycin (Verified Allergy, Severe, RASH, 08/09/17) Amoxicillin (Verified Allergy, Mild, RASH HEAD TO TOE, 08/09/17) Head to Toe Rash Clavulanic Acid (Verified Allergy, Mild, RASH HEAD TO TOE, 08/09/17) Head to Toe Rash Cefuroxime (Verified Allergy, Unknown, UNKNOWN, 08/09/17) Physical Exam Vital Signs Date Time Temp Pulse Resp B/P (MAP) Pulse Ox O2 Delivery O2 Flow Rate FiO2 08/09/17 18:25 37.2 77 18 120/78 96 08/09/17 18:15 37.0 76 18 123/74 97 08/09/17 17:36 80 08/09/17 17:30 36.9 73 16 115/68 94 08/09/17 17:00 77 18 105/73 95 08/09/17 16:30 88 18 99/65 94 08/09/17 16:15 36.9 74 18 112/62 94 08/09/17 16:00 36.8 82 18 105/70 95 08/09/17 14:50 84 16 104/62 97 Room Air 08/09/17 13:23 74 2/7/18 13:22 37.0 80 18 99/59 97 Room Air Physical Exam GENERAL: Patient is awake, alert, and in no acute distress. Patient is resting comfortably and showing no signs of anxiety EYES: The conjunctivae are clear. The pupils are round and reactive. EARS, NOSE, MOUTH AND THROAT: The nose is without any evidence of any deformity. Mucous membranes are moist tongue is midline NECK: The neck is nontender and supple. RESPIRATORY: Normal respiratory effort is noted there is no evidence of wheezing rhonchi or rales CARDIOVASCULAR: Regular rate and rhythm noted there no murmurs rubs or gallops normal S1 normal S2 GASTROINTESTINAL: The abdomen is soft. Bowel sounds are present in all quadrants. Abdomen is nontender MUSCULOSKELETAL/EXTREMITIES: Chronic deformities noted to the left lower and left upper extremities. RECTAL: Brown stool, heme negative. SKIN: There is no obvious evidence of any rash. There are no petechiae, pallor or cyanosis noted. NEUROLOGIC: Patient is awake alert and oriented x3. Medical Decision & Procedures ER Provider Diagnostic Interpretation: Radiology results as stated below per my review and radiologist interpretation: CHEST ONE VIEW PORTABLE FINDINGS: Mild stable cardia megaly. Chronic atelectatic change left base. Lungs otherwise are clear. There is a component of mild emphysematous change. IMPRESSION: Chronic change. Moderate stable cardiomegaly. No acute process. The above report was generated using voice recognition software. It may contain grammatical, syntax or spelling errors. Electronically signed by: Jacinto Tierney M.D. 08/09/2017 2:29 PM Laboratory Results 08/09/17 13:50 Red Blood Count 2.07, Mean Corpuscular Volume 91.8, Mean Corpuscular Hemoglobin 30.9, Mean Corpuscular Hemoglobin Concent 33.7, Mean Platelet Volume 11.2 08/09/17 13:50 Test 08/09/17 13:50 White Blood Count 8.27 K/uL (4.8-10.8) Red Blood Count 2.07 M/uL (4.7-6.1) Hemoglobin 6.4 g/dL (14.0-18.0) Hematocrit 19.0 % (42-52) Mean Corpuscular Volume 91.8 fL (80-100) Mean Corpuscular Hemoglobin 30.9 pg (25-34) Mean Corpuscular Hemoglobin Concent 33.7 g/dl (32-36) Platelet Count 24 K/uL (130-400) Mean Platelet Volume 11.2 fL (7.4-10.4) RDW Standard Deviation 51.1 fL (36.4-46.3) RDW Coefficient of Variation 24.9 % (11.5-14.5) Neutrophils % (Manual) 6.9 % Lymphocytes % (Manual) 49.1 % Monocytes % (Manual) 31.9 % Eosinophils % (Manual) 4.3 % Basophils % (Manual) 5.2 % (0-2) Blast Cells % 2.6 % Neutrophils # (Manual) 0.57 K/uL (1.4-6.5) Total Absolute Neutrophils 0.57 K/uL (1.4-6.5) Lymphocytes # (Manual) 4.06 K/uL (1.2-3.4) Total Absolute Lymphocytes 4.06 K/uL (1.2-3.4) Monocytes # (Manual) 2.64 K/uL (0.11-0.59) Eosinophils # (Manual) 0.36 K/uL (0-0.5) Basophils # (Manual) 0.43 K/uL (0-0.2) Blast Cells # 0.22 K/uL (0-0) Blood Smear Review Basophilic Stippling 1+ Anisocytosis PRESENT Absolute Reticulocyte Count 0.07 10^6/uL (0.02-0.10) Percent Reticulocyte Count 3.5 % (0.5-2.0) Immature Reticulocyte Fraction 13.6 % (2.3-13.4) Reticulocyte Hemoglobin Content 37.7 PG (28.2-36.6) Prothrombin Time 11.5 SECONDS (9.0-12.0) Prothromb Time International Ratio 1.1 (0.9-1.1) Activated Partial Thromboplast Time 27.6 SECONDS (21.0-31.0) Partial Thromboplastin Ratio 1.1 Anion Gap 5.0 mmol/L (3-11) Est Creatinine Clear Calc Drug Dose 35.1 ml/min Estimated GFR () 43.5 Estimated GFR (Non- 37.5 BUN/Creatinine Ratio 17.0 (10-20) Calcium Level 8.0 mg/dl (8.5-10.1) Total Bilirubin 0.4 mg/dl (0.2-1) Direct Bilirubin 0.2 mg/dl (0-0.2) Aspartate Amino Transf (AST/SGOT) 12 U/L (15-37) Alanine Aminotransferase (ALT/SGPT) 17 U/L (12-78) Alkaline Phosphatase 61 U/L (45-117) Troponin I 0.017 ng/ml (0-0.045) Total Protein 7.8 gm/dl (6.4-8.2) Albumin 2.7 gm/dl (3.4-5.0) Lipase 127 U/L (73-393) Laboratory results per my review. ECG Indication: other (Low hemoglobin) Rate (beats per minute): 74 Rhythm: normal sinus Findings: no acute ischemic change, no ectopy Comparison ECG Date: 03/26/2017 Change: no significant change ED Course 1314: The patient was evaluated in room B12B. A complete history and physical examination were performed. 1428: Upon reevaluation, the patient is resting comfortably. I discussed results and treatment plan with him. He verbalizes agreement and understanding. [facility]: I discussed the patient's case with Sofia HADLEY again. The patient will receive blood transfusions in the ED. Medical Decision Differential diagnosis: Etiologies such as diverticulosis, AVM, coagulopathy, colitis, inflammatory bowel disease, malignancy, Carleen-Caputo tear, esophagitis, peptic ulcer disease , variceal bleed, gastritis, epistaxis, fissure, hemorrhoids, as well as others were entertained. Nursing notes reviewed. Additional history is obtained from the prehospital personnel. The patient is a 77-year-old male who presented to the emergency department because of anemia. The patient has a history of AML. His hemoglobin will start to drop on occasion and he normally goes to the [facility] for blood transfusion. The patient was sent to the emergency department today for an evaluation. He is awake and alert. His vital signs show a slight hypotension. The patient was typed and crossed for blood. I discussed his case with the on -call [facility]. They were able to call the patient's residential and providers and they feel the patient can receive a blood transfusion while in the emergency department and then be discharged back to residential. I agree with this plan. The patient was reevaluated multiple times. He was consented for blood. I discussed his case with his nephew as well. He is aware the plan at this time. Medication Reconcilliation Current Medication List: was personally reviewed by me Blood Pressure Screening Patient's blood pressure: Normal blood pressure Blood pressure disposition: Did not require urgent referral Consults Time Called: 1420 Consulting Physician: Sofia HADLEY - [facility] Returned Call: 1426 I discussed the patient's case with Sofia HADLEY. The patient will be evaluated for further management. 1440: I spoke with Sofia HADLEY again. She notes that the patient has a history of AML and has refused comfort measures. She feels that the patient would be safe for discharge following blood transfusion, as this is normal protocol for him. Impression Primary Impression: Anemia Additional Impressions: Pancytopenia Thrombocytopenia Critical Care I have personally spent greater than 60 minutes of critical care time in the direct management of this patient. This includes bedside care, interpretation of diagnostic studies, and testing, discussion with consultants, patient, and family members, and other required patient management activities. This 60 minutes is in excess of all separately billable procedures. Scribe Attestation The scribe's documentation has been prepared under my direction and personally reviewed by me in its entirety. I confirm that the note above accurately reflects all work, treatment, procedures, and medical decision making performed by me. Departure Information Dispostion Home / Self-Care Referrals Geo Varela M.D. (PCP) Problem Qualifiers Primary Impression: Anemia Anemia type: unspecified type Qualified Codes: D64.9 - Anemia, unspecified
[2017-08-09 15:02] LABS: RETIC COUNT % 3.5 % (0.5-2.0)
== END 2017-08-09 21:19 ==
LOC: EDBD 13:13 → C.EDB 13:15
DX: D61.818 Other pancytopenia (principal); D69.6 Thrombocytopenia, unspecified; G80.9 Cerebral palsy, unspecified; J96.11 Chronic respiratory failure with hypoxia; N18.3 Chronic kidney disease, stage 3 (moderate); E11.22 Type 2 diabetes mellitus with diabetic chronic kidney disease; K21.9 Gastro-esophageal reflux disease without esophagitis; E03.9 Hypothyroidism, unspecified; Z87.891 Personal history of nicotine dependence; Z79.82 Long term (current) use of aspirin; Z79.4 Long term (current) use of insulin; Z79.52 Long term (current) use of systemic steroids; Z88.1 Allergy status to other antibiotic agents; Z88.0 Allergy status to penicillin; Z85.6 Personal history of leukemia

== ENCOUNTER 2017-09-21 10:05 | Inpatient (IN) | payer OTHER ==
[~2017-09-21] VITALS: Ht 165.1 cm; Wt 72.8 kg
[2017-09-21] VITALS (20 sets, daily range): BP systolic 101–147; BP diastolic 52–84; PULSE 58–91; TEMP 36.3–37.8; O2SAT 2–100; BMI 27.1
[~2017-09-21 10:05] MED LIST changes: -ACET325T96 PO; -AMB5 PO; -ASPI-461 PO; +ATV/1 PO; +DULO60CA44 PO; -GABA-112 PO; -INSDGIPEN SQ; -IPRASOL4 INH; -ONDA4TAB65 PO; -POLY335019 PO; +PRED-301 PO; -ZNTT/150 PO; -[UNRECOGNIZED DRUG - CODE] TOP
--- NOTE | 2017-09-21 10:20 | EMERGENCY ROOM VISIT NOTE ---
History Report prepared by Sonia: Ghassan Aggarwal Under the Supervision of: Dr. Maksim Nelson M.D. First contact with patient: 10:14 Stated Complaint: ANEMIA History of Present Illness The patient is a 77 year old male with a history of anemia and acute myelogenous leukemia who presents to the Emergency Room with complaints of worsening low blood levels today. He states that he always has low blood levels. The patient says that he started having left arm pain 2 months ago. He denies any headaches, bleeding, melena, or hematochezia. The patient was here a month ago for similar symptoms, and was found to be anemic, and was transfused and discharged. Source of History: patient Onset: Today Position: other (global) Symptom Intensity: has multiple myeloma Quality: other (low blood levels) Timing: worsening Associated Symptoms: No headache, No melena, No hematochezia Note: Associated symptoms: Left arm pain started 2 months ago. Denies any bleeding. Review of Systems See HPI for pertinent positives & negatives. A total of 10 systems reviewed and were otherwise negative. Past Medical & Surgical Medical Problems: (1) AML (acute myeloblastic leukemia) (2) Anemia (3) Bone marrow disorder (4) Cerebral palsy (5) Chronic respiratory failure with hypoxia (6) Chronic tetraplegia (7) CKD (chronic kidney disease) stage 3, GFR 30-59 ml/min (8) DMII (diabetes mellitus, type 2) (9) Fever (10) GERD (gastroesophageal reflux disease) (11) Hypothyroidism (12) Symptomatic anemia (13) Syncope (14) UTI (urinary tract infection) Family History No pertinent family history Social History Smoking Status: Former Smoker Alcohol Use: none Drug Use: none Marital Status: Housing Status: correction Occupation Status: disabled Current/Historical Medications Scheduled Aspirin (Aspirin), 81 MG PO DAILY Duloxetine HCl (Cymbalta), 30 MG PO DAILY Home O2 Therapy (Oxygen), 2-4 LITERS NA PRN Insulin Glargine (Lantus Solostar), 10 UNITS SQ HS Lansoprazole (Prevacid), 15 MG PO DAILYBB Levothyroxine Sodium (Synthroid), 50 MG PO DAILY Menthol (Mouth-Throat) ([place] Cough Drops), 1 DROP PO Q2H Polyethylene Glycol 3350 (Miralax), 17 GM PO DAILY Ranitidine (Zantac), 150 MG PO BID Sodium Phosphates ([place]leet Enema Six Pack), 1 SUPP RE DIRECTED Tizanidine (Zanaflex ), 4 MG PO TID Scheduled PRN Acetaminophen Tab (Tylenol), 650 MG PO Q4 PRN for Fever Bisacodyl (Bisac-Evac), 1 SUPP RE DAILY PRN for Constipation Camphor & Menthol (Men-Phor), 1 APPLN TOP Q2H PRN for Itching Gabapentin (Neurontin), 400 MG PO TID PRN for Neuropathic pain Hydroxyzine Hcl (Atarax), 25 MG PO Q6 PRN for Itching Ipratropium-Albuterol (Duoneb), 1 TREATMENT INH Q4H PRN for Wheezing Magnesium Hydroxide (Milk Of Magnesia), 30 ML PO DIRECTED PRN for Constipation Morphine Sulfate (Morphine Sulfate), 0.5 ML PO Q2H PRN for Pain Ondansetron Hcl (Zofran), 1 TAB PO Q6 PRN for Nausea or Vomiting Oxycodone Ir (Roxicodone Ir), 5 MG PO QID PRN for Pain Miscellaneous Medications Collagenase (Santyl) Allergies Coded Allergies: Vancomycin (Verified Allergy, Severe, RASH, 09/21/17) Amoxicillin (Verified Allergy, Mild, RASH HEAD TO TOE, 09/21/17) Head to Toe Rash Clavulanic Acid (Verified Allergy, Mild, RASH HEAD TO TOE, 09/21/17) Head to Toe Rash Cefuroxime (Verified Allergy, Unknown, UNKNOWN, 09/21/17) Physical Exam Vital Signs Date Time Temp Pulse Resp B/P (MAP) Pulse Ox O2 Delivery O2 Flow Rate FiO2 09/21/17 14:00 37.5 74 20 123/74 (90) 98 Nasal Cannula 3.0 09/21/17 14:00 37.5 74 20 123/74 98 Nasal Cannula 3.0 09/21/17 13:29 09/21/17 13:25 37.1 83 20 116/71 100 2.0 09/21/17 13:06 37.4 91 20 115/77 100 2.0 09/21/17 12:50 37.2 76 14 122/76 100 2.0 09/21/17 12:34 37.8 85 18 114/75 100 09/21/17 12:19 36.9 78 18 101/61 98 2.0 09/21/17 11:23 85 20 105/63 97 Nasal Cannula 2.0 09/21/17 10:20 36.9 82 14 102/65 95 Room Air 09/21/17 10:15 80 Physical Exam GENERAL: Patient is elderly, chronically unwell appearing, no distress. EYES: Pale conjunctiva. No scleral icterus. ENT: Mucous membranes moist, no nasal congestion. NECK: No masses appreciated, no meningismus, trachea is midline. RESPIRATORY: No dyspnea. Clear to auscultation and equal bilaterally. No wheeze , no rhonchi. CARDIOVASCULAR: Regular rate and rhythm. No murmurs, rubs, gallops appreciated. GASTROINTESTINAL: Abdomen soft, nontender, no peritonitis. Bowel sounds positive. No masses appreciated. BACK: No midline tenderness, no CVA tenderness EXTREMITIES: Normal motion all extremities, no cyanosis, no edema. NEUROLOGIC: Alert and oriented, no acute motor or sensory deficits, no focal weakness, cranial nerves grossly intact. SKIN: Pale. Poor skin turgor throughout. Medical Decision & Procedures Laboratory Results 09/21/17 10:41 Red Blood Count 1.59, Mean Corpuscular Volume 92.5, Mean Corpuscular Hemoglobin 30.8, Mean Corpuscular Hemoglobin Concent 33.3, Mean Platelet Volume 11.0 09/21/17 10:40 Test 09/21/17 10:40 09/21/17 10:41 Prothrombin Time 12.6 SECONDS (9.0-12.0) Prothromb Time International Ratio 1.2 (0.9-1.1) Activated Partial Thromboplast Time 33.2 SECONDS (21.0-31.0) Partial Thromboplastin Ratio 1.3 Anion Gap 7.0 mmol/L (3-11) Est Creatinine Clear Calc Drug Dose 27.2 ml/min Estimated GFR () 32.6 Estimated GFR (Non- 28.1 BUN/Creatinine Ratio 13.2 (10-20) Calcium Level 8.5 mg/dl (8.5-10.1) Total Bilirubin 0.3 mg/dl (0.2-1) Aspartate Amino Transf (AST/SGOT) 19 U/L (15-37) Alanine Aminotransferase (ALT/SGPT) 27 U/L (12-78) Alkaline Phosphatase 80 U/L (45-117) Troponin I < 0.015 ng/ml (0-0.045) Total Protein 9.8 gm/dl (6.4-8.2) Albumin 2.4 gm/dl (3.4-5.0) Globulin 7.4 gm/dl (2.5-4.0) Albumin/Globulin Ratio 0.3 (0.9-2) White Blood Count 4.61 K/uL (4.8-10.8) Red Blood Count 1.59 M/uL (4.7-6.1) Hemoglobin 4.9 g/dL (14.0-18.0) Hematocrit 14.7 % (42-52) Mean Corpuscular Volume 92.5 fL (80-100) Mean Corpuscular Hemoglobin 30.8 pg (25-34) Mean Corpuscular Hemoglobin Concent 33.3 g/dl (32-36) Platelet Count 90 K/uL (130-400) Mean Platelet Volume 11.0 fL (7.4-10.4) RDW Standard Deviation 52.8 fL (36.4-46.3) RDW Coefficient of Variation 18.2 % (11.5-14.5) Neutrophils % (Manual) 21.1 % Lymphocytes % (Manual) 61.3 % Monocytes % (Manual) 8.8 % Eosinophils % (Manual) 6.1 % Basophils % (Manual) 1.8 % (0-2) Metamyelocytes % 0.9 % Neutrophils # (Manual) 0.97 K/uL (1.4-6.5) Total Absolute Neutrophils 0.97 K/uL (1.4-6.5) Lymphocytes # (Manual) 2.83 K/uL (1.2-3.4) Total Absolute Lymphocytes 2.83 K/uL (1.2-3.4) Monocytes # (Manual) 0.41 K/uL (0.11-0.59) Eosinophils # (Manual) 0.28 K/uL (0-0.5) Basophils # (Manual) 0.08 K/uL (0-0.2) Metamyelocytes # 0.04 K/uL (0-0) Platelet Estimate DECREASED Large Platelets 1+ Anisocytosis PRESENT Peripheral Blood Smear Path Consult Laboratory results as reviewed by me. ECG Per My Interpretation Indication: weakness Rate (beats per minute): 79 Rhythm: normal sinus Findings: no acute ischemic change, no ectopy, other (QTC of 444) ED Course 1015: The patient was evaluated in room A3. A complete history and physical exam was performed. 1125: I discussed the patient with Lynsey Trent - she will evaluate the patient for further treatment. 1126: Upon reevaluation, the patient is resting. Discussed results and treatment plan with the patient. He verbalized understanding and agreement with the treatment plan. The patient will be evaluated for further management. 1240: I reevaluated the patient and he is stable. Medical Decision Differential: Sepsis, Infectious (UTI/Pneumonia/Meningitis/etc), Metabolic/ Electrolyte Abnormality, Cardiac, Dehydration, Anemia, Hepatic, Endocrine, Toxicologic, Neurologic, amongst other pathologies entertained. 77 yr old male with AML arrives for evaluation of worsening anemia. He periodically gets transfusion at [facility] however this time hgb has dropped quite low. HgB 4 here though no evidence of ACS, nor end organ damage at this time. He is pale and unwell appearing but in no distress. He will need multiple rounds of blood transfusions and I do not feel it is reasonable to try and do this is ED today given his medical history. Hospitalist consulted for further management of this. Patient breathing comfortably and in no distress throughout. Of not Plts a bit low but better than previous. Cr is mildly bumped but he has been here before. Transfusion ordered for 2 U PRBC here but will avoid rapid transfusion given how stable he is right now. Medication Reconcilliation Current Medication List: was personally reviewed by me Blood Pressure Screening Patient's blood pressure: Normal blood pressure Consults Time Called: 1123 Consulting Physician: Lynsey Trent Returned Call: 1125 I discussed the patient with Lynsey Trent - she will evaluate the patient for further treatment. Impression Primary Impression: Severe anemia Additional Impression: AML (acute myelogenous leukemia) Scribe Attestation The scribe's documentation has been prepared under my direction and personally reviewed by me in its entirety. I confirm that the note above accurately reflects all work, treatment, procedures, and medical decision making performed by me. Departure Information Dispostion Being Evaluated By Hospitalist Geo Foote M.D. (PCP) Problem Qualifiers
[2017-09-21] MEDS ORDERED: SNTONWC (10:48)
[2017-09-21] MEDS ORDERED: CYM/30 PO (10:48)
[2017-09-21] MEDS ORDERED: OXYC1TAB3 PO (10:48)
[2017-09-21] MEDS ORDERED: ZNF4 PO (10:48)
[2017-09-21 11:06] LABS: ALBUMIN 2.4 gm/dl (3.4-5.0); ALT/SGPT 27 U/L (12-78); BLOOD UREA NITROGEN 29 mg/dl (7-18); CALCIUM 8.5 mg/dl (8.5-10.1); CARBON DIOXIDE 27 mmol/L (21-32); CREATININE 2.21 mg/dl (0.60-1.40); GLUCOSE 151 mg/dl (70-99); POTASSIUM 4.3 mmol/L (3.5-5.1); SODIUM 135 mmol/L (136-145)
[2017-09-21 11:07] LABS: HEMATOCRIT 14.7 % (42-52); HEMOGLOBIN 4.9 g/dL (14.0-18.0); MEAN CELL VOLUME 92.5 fL (80-100); MEAN CORPUSCULAR HEMOGLOBIN 30.8 pg (25-34); MEAN CORPUSCULAR HGB CONC 33.3 g/dl (32-36); RED CELL DISTRIBUTION WIDTH CV 18.2 % (11.5-14.5); RED CELL DISTRIBUTION WIDTH SD 52.8 fL (36.4-46.3); WHITE BLOOD COUNT 4.61 K/uL (4.8-10.8)
[2017-09-21 11:11] LABS: ALKALINE PHOSPHATASE 80 U/L (45-117); AST/SGOT 19 U/L (15-37); TOTAL PROTEIN 9.8 gm/dl (6.4-8.2)
[2017-09-21 11:13] LABS: INR 1.2 (0.9-1.1); PTT PATIENT 33.2 SECONDS (21.0-31.0)
[2017-09-21 11:18] LABS: PLATELET COUNT 90 K/uL (130-400)
[2017-09-21] MEDS ORDERED: NITROGLYCERIN 0.4 MG SL PER TAB CHARGE SL PRN (11:45)
[2017-09-21] MEDS ORDERED: POLYETHYLENE (MIRALAX) 17 GM PACK PO PRN (11:45)
[2017-09-21] MEDS ORDERED: ONDANSETRON INJ 2 MG/ML 2 ML VIAL IV PRN (11:45)
[2017-09-21] MEDS ORDERED: SODIUM CHLORIDE 0.9% 1000ML 1,000 ML IV SCH (11:45)
[2017-09-21] MEDS ORDERED: ALUMINUM/MAGNESIUM/SIMETH (MAALOX MAX) 30 ML UDC PO PRN (11:45)
[2017-09-21] MEDS ORDERED: ACETAMINOPHEN 325 MG TAB PO PRN (11:45)
[2017-09-21] MEDS ORDERED: MAGNESIUM HYDROXIDE SUSP 30 ML UDC PO PRN (11:45)
[2017-09-21] MEDS ORDERED: GLUCAGON FOR INJ 1 MG VIAL SQ PRN (12:00)
[2017-09-21] MEDS ORDERED: GLUCOSE 40% GEL 15 GM TUBE PO PRN (12:00)
[2017-09-21] MEDS ORDERED: DEXTROSE 50% 50 ML SYR IV PRN (12:00)
[2017-09-21] MEDS ORDERED: GLUCOSE 10 TABS/TUBE PO PRN (12:00)
[2017-09-21] MEDS ORDERED: OXYCODONE HCL IR 5 MG TAB (IMMEDIATE RELEASE) PO PRN (12:15)
[2017-09-21] MEDS ORDERED: hydrOXYzine HCL 25 MG TAB PO PRN (12:15)
[2017-09-21] MEDS ORDERED: GABAPENTIN 400 MG CAP PO PRN (12:15)
[2017-09-21] MEDS ORDERED: ALBUT/IPRATROP 3MG/0.5MG NEB 3 ML VIAL INH PRN (12:15)
[2017-09-21] MEDS ORDERED: MoRPHine SULFATE 5 MG/0.25 ML UDP PO PRN (12:15)
--- NOTE | 2017-09-21 12:54 | History and Physical ---
History & Physical Date & Time of Service: Sep 21, 2017 at 12:30 Chief Complaint: Anemia Primary Care Physician: Geo Varela M.D. History of Present Illness Source: patient, clinic records, hospital records Pt is 77 y/o M with PMH AML with chronic anemia, cerebral palsy, CKD III, DM II , hypothyroidism, GERD presented to ER for anemia. Patient has been receiving blood transfusions for anemia, with increasing transfusions needed approximately every 2 weeks. Per outpatient records discussion with patient and family about palliative care however patient has denied. Patient had labs on 09/18/17 with hemoglobin of 5.8. Patient states has been feeling well, reports eating and drinking normally and is denying any shortness of breath or chest pain. Pt admits to picking at scabs to his right forearm, denies other rashes. Reports chronic lower extremity paresthesias, denies any worsening. Uses wheelchair. Today in ER Hgb: 4.9. Denies fever/chills, diaphoresis, N/V/D/C , EMANUEL, dizziness, syncope, vision changes, neck pain, CP, SOB, orthopnea, palpitations, cough, sore throat, choking, otalgia, rhinorrhea, abdominal pain, extremity edema, urinary symptoms, melena, hematochezia, epistaxis. Past Medical/Surgical History Medical Problems: (1) AML (acute myeloblastic leukemia) Status: Chronic (2) Bone marrow disorder Status: Chronic (3) Cerebral palsy Status: Chronic (4) Chronic respiratory failure with hypoxia Status: Chronic (5) Chronic tetraplegia Status: Chronic (6) CKD (chronic kidney disease) stage 3, GFR 30-59 ml/min Status: Chronic (7) DMII (diabetes mellitus, type 2) Status: Chronic (8) GERD (gastroesophageal reflux disease) Status: Chronic (9) Hypothyroidism Status: Chronic Family History Hypertension Social History Smoking Status: Former Smoker Smokeless Tobacco Use: No Alcohol Use: none Drug Use: none Marital Status: Housing status: prison 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 Status: disabled Immunizations History of Influenza Vaccine: Yes Influenza Vaccine Date: Jan 31, 2017 History of Tetanus Vaccine?: Unknown History of Pneumococcal: Unknown History of Hepatitis B Vaccine: Unknown Allergies Coded Allergies: Vancomycin (Verified Allergy, Severe, RASH, 09/21/17) Amoxicillin (Verified Allergy, Mild, RASH HEAD TO TOE, 09/21/17) Head to Toe Rash Clavulanic Acid (Verified Allergy, Mild, RASH HEAD TO TOE, 09/21/17) Head to Toe Rash Cefuroxime (Verified Allergy, Unknown, UNKNOWN, 09/21/17) Home Medications Scheduled Aspirin (Aspirin), 81 MG PO DAILY Duloxetine HCl (Cymbalta), 30 MG PO DAILY Home O2 Therapy (Oxygen), 2-4 LITERS NA PRN Insulin Glargine (Lantus Solostar), 10 UNITS SQ HS Lansoprazole (Prevacid), 15 MG PO DAILYBB Levothyroxine Sodium (Synthroid), 50 MG PO DAILY Menthol (Mouth-Throat) ([place] Cough Drops), 1 DROP PO Q2H Polyethylene Glycol 3350 (Miralax), 17 GM PO DAILY Ranitidine (Zantac), 150 MG PO BID Sodium Phosphates (Fleet Enema Six Pack), 1 SUPP RE DIRECTED Tizanidine (Zanaflex ), 4 MG PO TID Scheduled PRN Acetaminophen Tab (Tylenol), 650 MG PO Q4 PRN for Fever Bisacodyl (Bisac-Evac), 1 SUPP RE DAILY PRN for Constipation Camphor & Menthol (Men-Phor), 1 APPLN TOP Q2H PRN for Itching Gabapentin (Neurontin), 400 MG PO TID PRN for Neuropathic pain Hydroxyzine Hcl (Atarax), 25 MG PO Q6 PRN for Itching Ipratropium-Albuterol (Duoneb), 1 TREATMENT INH Q4H PRN for Wheezing Magnesium Hydroxide (Milk Of Magnesia), 30 ML PO DIRECTED PRN for Constipation Morphine Sulfate (Morphine Sulfate), 0.5 ML PO Q2H PRN for Pain Ondansetron Hcl (Zofran), 1 TAB PO Q6 PRN for Nausea or Vomiting Oxycodone Ir (Roxicodone Ir), 5 MG PO QID PRN for Pain Miscellaneous Medications Collagenase (Santyl) Review of Systems See HPI for pertinent positives & negatives. All other systems reviewed and were otherwise negative Physical Exam Vital Signs Date Time Temp Pulse Resp B/P (MAP) Pulse Ox O2 Delivery O2 Flow Rate FiO2 09/21/17 12:19 36.9 78 18 101/61 98 2.0 09/21/17 11:23 85 20 105/63 97 Nasal Cannula 2.0 09/21/17 10:20 36.9 82 14 102/65 95 Room Air 09/21/17 10:15 80 General Appearance: WD/WN, no apparent distress Head: normocephalic, atraumatic Eyes: normal inspection, PERRL, EOMI, sclerae normal, + pertinent finding ( pale conjunctiva) ENT: hearing grossly normal, pharynx normal, + pertinent finding (mucous membranes mildly dry) Neck: supple, no JVD, trachea midline Respiratory/Chest: lungs clear, normal breath sounds, no respiratory distress Cardiovascular: regular rate, rhythm, no murmur Abdomen/GI: normal bowel sounds, non tender, soft Extremities/Musculoskelatal: + pertinent finding (bilateral fingers, toes contracted, limited ROM arms and legs bilaterally. sensation to light touch intact, normal distal pulses) Neurologic/Psych: alert, normal mood/affect, oriented x 3 Skin: warm/dry, + pertinent finding (pale, Right forearm with abrasions without surrounding erythema) Diagnostics Laboratory Results Results Past 24 Hours Test 09/21/17 10:40 09/21/17 10:41 Range/Units Prothrombin Time 12.6 9.0-12.0 SECONDS Prothromb Time International Ratio 1.2 0.9-1.1 Activated Partial Thromboplast Time 33.2 21.0-31.0 SECONDS Partial Thromboplastin Ratio 1.3 Sodium Level 135 136-145 mmol/L Potassium Level 4.3 3.5-5.1 mmol/L Chloride Level 102 98-107 mmol/L Carbon Dioxide Level 27 21-32 mmol/L Anion Gap 7.0 3-11 mmol/L Blood Urea Nitrogen 29 7-18 mg/dl Creatinine 2.21 0.60-1.40 mg/dl Est Creatinine Clear Calc Drug Dose 27.2 ml/min Estimated GFR () 32.6 Estimated GFR (Non- 28.1 BUN/Creatinine Ratio 13.2 10-20 Random Glucose 151 70-99 mg/dl Calcium Level 8.5 8.5-10.1 mg/dl Total Bilirubin 0.3 0.2-1 mg/dl Aspartate Amino Transf (AST/SGOT) 19 15-37 U/L Alanine Aminotransferase (ALT/SGPT) 27 12-78 U/L Alkaline Phosphatase 80 45-117 U/L Troponin I < 0.015 0-0.045 ng/ml Total Protein 9.8 6.4-8.2 gm/dl Albumin 2.4 3.4-5.0 gm/dl Globulin 7.4 2.5-4.0 gm/dl Albumin/Globulin Ratio 0.3 0.9-2 White Blood Count 4.61 4.8-10.8 K/uL Red Blood Count 1.59 4.7-6.1 M/uL Hemoglobin 4.9 14.0-18.0 g/dL Hematocrit 14.7 42-52 % Mean Corpuscular Volume 92.5 80-100 fL Mean Corpuscular Hemoglobin 30.8 25-34 pg Mean Corpuscular Hemoglobin Concent 33.3 32-36 g/dl Platelet Count 90 130-400 K/uL Mean Platelet Volume 11.0 7.4-10.4 fL RDW Standard Deviation 52.8 36.4-46.3 fL RDW Coefficient of Variation 18.2 11.5-14.5 % Neutrophils % (Manual) 21.1 % Lymphocytes % (Manual) 61.3 % Monocytes % (Manual) 8.8 % Eosinophils % (Manual) 6.1 % Basophils % (Manual) 1.8 0-2 % Metamyelocytes % 0.9 % Neutrophils # (Manual) 0.97 1.4-6.5 K/uL Total Absolute Neutrophils 0.97 1.4-6.5 K/uL Lymphocytes # (Manual) 2.83 1.2-3.4 K/uL Total Absolute Lymphocytes 2.83 1.2-3.4 K/uL Monocytes # (Manual) 0.41 0.11-0.59 K/uL Eosinophils # (Manual) 0.28 0-0.5 K/uL Basophils # (Manual) 0.08 0-0.2 K/uL Metamyelocytes # 0.04 0-0 K/uL Platelet Estimate DECREASED Large Platelets 1+ Anisocytosis PRESENT EKG EKG: Sinus rhythm, rate 79 Read by cardiology: Normal sinus rhythm Nonspecific T wave abnormality When compared with ECG of 09-AUG-2017 13:33, Nonspecific T wave abnormality now evident in Lateral leads Confirmed by PARUL JACKSON ([id number]) on 09/21/2017 12:09:05 PM Impression Assessment and Plan ANEMIA SECONDARY TO AML Denies dizziness, SOB. Hgb: 4.9 -Transfuse 2 units -repeat H&H in 12 hours, may require further transfusion -monitor CBC JULITA on CKD III Cr: 2.2, baseline ~1.5 -IVF after transfusion -monitor renal functions -avoid nephrotoxic agents when able DM II -HA1c in AM -continue Lantus 10U -Novolog sliding scale per protocol CEREBRAL PALSY Baseline. Pt mentating normally -continue zanaflex, gabapentin, oxycodone prn HYPOTHYROIDISM -continue levothyroxine GERD -Continue PPI, H2 erlinda DVT Prophylaxis -SCD Disposition admit med/surg DNR as per discussion with pt Follows with Dr Varela for routine care Pt was seen with Dr Cruz. See addendum Assessment and plan: ACUTE MYELOGENOUS LEUKEMIA/SYMPTOMATIC ANEMIA please refer to further documentation by Lizett Gallo for discussion of other chronic issue Presented with hemoglobin 4.9, associated with dizziness spell and shortness of breath will transfuse 2 units of PRBC repeat H&H May require transfusion Patient is not a candidate for chemo treatment per oncology At present transfusion dependent Hospice palliative care was suggested by family physician and hematology oncology-patient and his family refused for hospice care. Patient is a resident at [facility], cerebral palsy, Paraplegic, wheelchair bound. Mentally patient is alert awake oriented, capable of making decision Patient has been getting periodic lab work check at [facility], and intermittent transfusion ACUTE RENAL FAILURE/CKD STAGE III -Getting blood transfusion, IV fluids Repeat PRP in a.m. Please refer to documentation by Rhina Gallo PARogelio for further discussion of chronic issues site Yesica Cruz MD Resuscitation Status DNR/DNI VTE Prophylaxis Will order VTE Prophylaxis: Yes Additional Copies To Geo Varela M.D.
[2017-09-21] MEDS ORDERED: ASPI-461 PO (14:01)
[2017-09-21] MEDS ORDERED: POLY335019 PO (14:01)
[2017-09-21] MEDS ORDERED: IPRASOL4 INH (14:01)
[2017-09-21] MEDS ORDERED: RANI150T85 PO (14:01)
[2017-09-21] MEDS ORDERED: ACET-1693 PO (14:01)
[2017-09-21] MEDS ORDERED: BISA10SU7 RE (14:20)
[2017-09-21] MEDS ORDERED: GABA-1220 PO (14:20)
[2017-09-21] MEDS ORDERED: HYDR-3124 PO (14:20)
[2017-09-21] MEDS ORDERED: LANS15CA15 PO (14:20)
[2017-09-21] MEDS ORDERED: RXNS10 PO (14:26)
[2017-09-21] MEDS ORDERED: INFLUENZA ADMINISTRATION CHARGE ONE (16:15)
[2017-09-21] MEDS ORDERED: INFLUENZA VIRUS QUAD VACCINE 0.5 ML SYR IM. ONE (16:15)
[2017-09-21] MEDS: INSULIN HUMAN REGULAR SC SCH ×2 (17:45→21:00)
[2017-09-21] MEDS ORDERED: [UNRECOGNIZED DRUG - CODE] TOP (19:53)
[2017-09-21] MEDS ORDERED: INSDGIPEN SQ (20:07)
[2017-09-21] MEDS ORDERED: ONDA4TAB65 PO (20:07)
[2017-09-21 20:15] LABS: HEMATOCRIT 22.7 % (42-52); HEMOGLOBIN 7.7 g/dL (14.0-18.0)
[2017-09-21] MEDS ORDERED: INSULIN GLARGINE SOLOSTAR 100 UNITS/ML 3 ML PEN SC SCH (21:00)
[2017-09-21] MEDS: RANITIDINE HCL 150 MG TAB PO SCH (23:18)
[2017-09-22] VITALS (8 sets, daily range): BP systolic 141–163; BP diastolic 72–91; PULSE 55–69; TEMP 36.5–37.1; O2SAT 96–100; Ht 165.1 cm; Wt 72.8 kg
[2017-09-22] MEDS ORDERED: PANTOprazole SOD 40 MG TAB PO SCH (06:30)
[2017-09-22] MEDS ORDERED: LEVOTHYROXINE 50 MCG TAB PO SCH (06:30)
[2017-09-22 07:33] LABS: CALCIUM 8.1 mg/dl (8.5-10.1); CREATININE 1.78 mg/dl (0.60-1.40); POTASSIUM 4.4 mmol/L (3.5-5.1)
[2017-09-22 07:58] LABS: HEMATOCRIT 25.9 % (42-52); HEMOGLOBIN 8.9 g/dL (14.0-18.0); MEAN CELL VOLUME 89.3 fL (80-100); MEAN CORPUSCULAR HEMOGLOBIN 30.7 pg (25-34); MEAN CORPUSCULAR HGB CONC 34.4 g/dl (32-36); MEAN PLATELET VOLUME 11.5 fL (7.4-10.4); NUCLEATED RED BLOOD CELL ABS 0.02 K/uL (0-0); PLATELET COUNT 74 K/uL (130-400); RED CELL DISTRIBUTION WIDTH CV 16.2 % (11.5-14.5); RED CELL DISTRIBUTION WIDTH SD 49.1 fL (36.4-46.3); WHITE BLOOD COUNT 3.06 K/uL (4.8-10.8)
[2017-09-22] MEDS ORDERED: POLYETHYLENE (MIRALAX) 17 GM PACK PO SCH (08:00)
[2017-09-22] MEDS ORDERED: DULOXETINE (CYMBALTA) 30 MG CAP PO SCH (08:00)
[2017-09-22] MEDS: RANITIDINE HCL 150 MG TAB PO SCH (08:12)
[2017-09-22] MEDS: INSULIN HUMAN REGULAR SC SCH ×3 (08:17→17:43)
[2017-09-22 09:19] LABS: HEMOGLOBIN A1C 6.4 % (4.5-5.6)
[2017-09-22] MEDS: OXYCODONE HCL IR 5 MG TAB (IMMEDIATE RELEASE) PO SCH ×2 (12:51→17:01)
--- NOTE | 2017-09-22 13:03 | Medical Consult ---
Consultation Date of Consultation: Sep 22, 2017. Attending Physician: Izzy Brady DO Reason for Consultation: "Anemia, thrombocytopenia" History of Present Illness Mr. 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 He has a PMH significant for type 2 diabetes, cerebral palsy, esophageal reflux, hypothyroidism, history of TIA. He is bound to a wheelchair due to cerebral palsy. Followed with Dr. Person, last time evaluated in May 2017. He was notified that he had acute myeloid leukemia that he would not be a candidate for treatment and that he should pursue supportive care with p.r.n. transfusions. He came to [facility] at the direction of the skilled nursing when he was found to have a significantly low hemoglobin. He has been transfusion dependent, per his report every 3-4 weeks. On admission his HGB was 4.9 G/dL. His ANC was less than a 1000 and platelets were at 90 K. He does not have signs or symptoms of infection. He is status post 3 units PRBC. Additional history obtained from the patient at bedside. He states that he is feeling improved since he received his blood transfusion. He did have an appropriate response to transfusion with a HGB now in the 8 G/dL range. He states that he is bound to a wheelchair due to cerebral palsy. He felt that manipulating his wheelchair was more difficult when he was significantly anemic. He had no energy. He denied dyspnea or chest pain. He has a good appetite. He has no problems with his bowel or bladder; denies any bleeding from any sites. I have discussed the patient's case, impression and plan with Alfreda Mendoza. Her note reflects my findings and plan. He was discharged after the blood trans support and so I could not see him in the hospital. Summary he is a case of acute myeloid leukemia, currently transfusion dependent , receiving periodic blood trans support, once again admitted for anemia the hemoglobin 4.9, platelet count is around 90,000, no bleeding from any sites, he received blood transfusion (3 units), he is not a candidate for any kind of aggressive treatment for acute myeloid leukemia and so will continue with periodic blood checkup and blood transfusion as needed to provide comfort care. Dr. Rob Hicks Hem/Onc (This note was completed using the dictation program Fluency Direct. As such, there may be misspellings, word substitutions, or other variations that should not change the essence of the clinical content of this encounter note. If there is need for further clarification, please direct questions to the provider listed above.) Past Medical/Surgical History Medical Problems: (1) Altered mental status Status: Acute (2) AML (acute myelogenous leukemia) Status: Acute (3) Elevated serum creatinine Status: Acute (4) Hypotension Status: Acute (5) Hypotension Status: Acute (6) Pancytopenia Status: Acute (7) Pneumonia Status: Acute (8) Sepsis Status: Acute (9) Sepsis Status: Acute (10) Severe anemia Status: Acute (11) Severe anemia Status: Acute (12) Tachycardia Status: Acute (13) Thrombocytopenia Status: Acute (14) TIA (transient ischemic attack) Status: Acute Family History Hypertension Social History Smoking Status: Former Smoker Smokeless Tobacco Use: No Alcohol Use: none Drug Use: none Marital Status: Housing Status: skilled nursing Occupation Status: disabled Allergies Coded Allergies: Vancomycin (Verified Allergy, Severe, RASH, 09/21/17) Amoxicillin (Verified Allergy, Mild, RASH HEAD TO TOE, 09/21/17) Head to Toe Rash Clavulanic Acid (Verified Allergy, Mild, RASH HEAD TO TOE, 09/21/17) Head to Toe Rash Cefuroxime (Verified Allergy, Unknown, UNKNOWN, 09/21/17) Current Inpatient Medications Current Inpatient Medications Medications (Trade) Dose Ordered Sig/Lucille Route Start Time Stop Time Status Last Admin Dose Admin Acetaminophen (Tylenol Tab) 650 mg Q4H PRN PO 09/21/17 11:45 10/21/17 11:44 Al Hydrox/Mg Hydrox/Simethicone (Maalox Max Susp) 15 ml Q4H PRN PO 09/21/17 11:45 10/21/17 11:44 Magnesium Hydroxide (Milk Of Magnesia Susp) 30 ml Q12H PRN PO 09/21/17 11:45 10/21/17 11:44 Ondansetron HCl (Zofran Inj) 4 mg Q6H PRN IV 09/21/17 11:45 10/21/17 11:44 Nitroglycerin (Nitrostat Tab) 0.4 mg UD PRN SL 09/21/17 11:45 10/21/17 11:44 Polyethylene (Miralax Powder Packet) 17 gm DAILY PRN PO 09/21/17 11:45 10/21/17 11:44 Insulin Glargine (Lantus Solostar Pen) 10 units HS SC 09/21/17 21:00 10/21/17 20:59 09/21/17 23:20 10 UNITS Insulin Human Regular (novoLIN-R) SLIDING SCALE IF C... ACHS SC 09/21/17 16:30 10/21/17 16:29 09/22/17 08:17 1 UNITS Glucose (Glucose 40% Gel) 15-30 GRAMS 15 GRAMS... UD PRN PO 09/21/17 12:00 10/21/17 11:59 Glucose (Glucose Chew Tab) 4-8 Tablets 4 Tabl... UD PRN PO 09/21/17 12:00 10/21/17 11:59 Dextrose (Dextrose 50% 50ML Syringe) 25-50ML OF 50% DW IV FOR... UD PRN IV 09/21/17 12:00 10/21/17 11:59 Glucagon (Glucagon Inj) 1 mg UD PRN SQ 09/21/17 12:00 10/21/17 11:59 Duloxetine HCl (Cymbalta Cap) 30 mg DAILY PO 09/22/17 08:00 10/22/17 08:59 09/22/17 08:13 30 MG Gabapentin (Neurontin Cap) 400 mg TID PRN PO 09/21/17 12:15 10/21/17 12:14 Hydroxyzine HCl (Vistaril Tab) 25 mg Q6 PRN PO 09/21/17 12:15 10/21/17 12:14 Albuterol/ Ipratropium (Duoneb) 3 ml Q4H PRN INH 09/21/17 12:15 10/21/17 12:14 Levothyroxine Sodium (Synthroid Tab) 50 mcg DAILYBB PO 09/22/17 06:30 10/22/17 06:29 09/22/17 06:37 50 MCG Morphine Sulfate (Roxanol Oral Soln) 5 mg Q2H PRN PO 09/21/17 12:15 10/05/17 12:14 Oxycodone HCl (Roxicodone Immediate Rel Tab) 5 mg QID PRN PO 09/21/17 12:15 10/05/17 12:14 Ranitidine HCl (zANTac TAB) 150 mg BID PO 09/21/17 20:00 10/21/17 20:59 09/22/17 08:12 150 MG Tizanidine HCl (Zanaflex Tab) 4 mg TID PO 09/21/17 14:00 10/21/17 13:59 09/22/17 08:12 4 MG Pantoprazole Sodium (Protonix Tab) 40 mg DAILYBB PO 09/22/17 06:30 10/22/17 06:29 09/22/17 06:37 40 MG Polyethylene (Miralax Powder Packet) 17 gm DAILY PO 09/22/17 08:00 10/22/17 08:59 09/22/17 08:13 17 GM Review of Systems Constitutional: + weakness, + fatigue, No fever, No chills ENT: No unusual epistaxis Respiratory: No cough, No shortness of breath Cardiovascular: No chest pain Abdomen: No pain, No GI bleeding Genitourinary - Male: No hematuria Neurologic: + problem reported (see HPI) Integumentary: No rash Physical Exam Date Time Temp Pulse Resp B/P (MAP) Pulse Ox O2 Delivery O2 Flow Rate FiO2 09/22/17 09:00 Nasal Cannula 2.0 09/22/17 08:25 98 Nasal Cannula 2.0 09/22/17 07:39 36.8 69 16 163/91 (115) 98 Nasal Cannula 2.0 09/22/17 04:14 36.7 58 20 146/87 (106) 100 Nasal Cannula 2.0 09/22/17 00:20 36.5 59 20 142/89 96 2.0 09/22/17 00:20 36.5 59 20 142/89 96 2.0 3/23/18 00:00 96 Nasal Cannula 2.0 09/21/17 23:20 36.3 64 18 128/76 98 2.0 09/21/17 22:50 36.8 58 119/75 18 2.0 09/21/17 22:22 36.4 76 18 133/76 (95) 99 2.0 09/21/17 22:05 36.5 75 18 132/75 99 09/21/17 21:51 36.8 58 18 113/72 97 09/21/17 19:56 36.8 61 17 125/71 (89) 100 Nasal Cannula 2.0 09/21/17 17:55 36.7 60 19 131/52 (78) 2 Nasal Cannula 99.0 09/21/17 16:50 36.4 65 18 103/68 96 09/21/17 16:46 100 Nasal Cannula 2.0 09/21/17 16:16 37.3 71 18 138/75 (96) 100 Nasal Cannula 2.5 09/21/17 15:50 37.0 65 18 109/72 95 2.5 09/21/17 15:20 37.0 73 18 147/84 99 2.5 09/21/17 15:05 37.3 71 18 138/75 100 09/21/17 14:48 36.9 75 18 122/73 99 2.5 09/21/17 14:00 37.5 74 20 123/74 (90) 98 Nasal Cannula 3.0 09/21/17 14:00 37.5 74 20 123/74 98 Nasal Cannula 3.0 09/21/17 13:29 09/21/17 13:25 37.1 83 20 116/71 100 2.0 09/21/17 13:06 37.4 91 20 115/77 100 2.0 09/21/17 12:50 37.2 76 14 122/76 100 2.0 09/21/17 12:34 37.8 85 18 114/75 100 09/21/17 12:19 36.9 78 18 101/61 98 2.0 09/21/17 11:23 85 20 105/63 97 Nasal Cannula 2.0 General Appearance: no apparent distress, + pertinent finding (appears around stated age) ENT: hearing grossly normal Neck: no adenopathy Respiratory/Chest: lungs clear, normal breath sounds, no respiratory distress Cardiovascular: regular rate, rhythm Abdomen/GI: normal bowel sounds, non tender, soft Extremities/Musculoskelatal: no pedal edema Neurologic/Psych: alert, oriented x 3 Skin: warm/dry Laboratory Results Last 24 Hours Test 09/21/17 16:45 09/21/17 19:42 09/21/17 20:18 09/22/17 06:34 Bedside Glucose 165 mg/dl 139 mg/dl Hemoglobin 7.7 g/dL 8.9 g/dL Hematocrit 22.7 % 25.9 % White Blood Count 3.06 K/uL Red Blood Count 2.90 M/uL Mean Corpuscular Volume 89.3 fL Mean Corpuscular Hemoglobin 30.7 pg Mean Corpuscular Hemoglobin Concent 34.4 g/dl RDW Standard Deviation 49.1 fL RDW Coefficient of Variation 16.2 % Platelet Count 74 K/uL Mean Platelet Volume 11.5 fL Nucleated RBC Absolute Count (auto) 0.02 K/uL Nucleated Red Blood Cells % 0.7 % Platelet Estimate DECREASED Sodium Level 136 mmol/L Potassium Level 4.4 mmol/L Chloride Level 104 mmol/L Carbon Dioxide Level 25 mmol/L Anion Gap 7.0 mmol/L Blood Urea Nitrogen 27 mg/dl Creatinine 1.78 mg/dl Est Creatinine Clear Calc Drug Dose 31.2 ml/min Estimated GFR () 42.3 Estimated GFR (Non- 36.5 BUN/Creatinine Ratio 14.9 Random Glucose 91 mg/dl Estimated Average Glucose 137 mg/dl Hemoglobin A1c 6.4 % Calcium Level 8.1 mg/dl Magnesium Level 2.1 mg/dl Test 09/22/17 07:36 Bedside Glucose 100 mg/dl Assessment & Plan 1. AML, with pancytopenia, transfusion dependent anemia * Patient has been advised by his former Computer Project Manager, Dr. Person, to pursue supportive measures like PRN transfusion, no active treatment for AML given his age and comorbidities * Patient states if his transfusion frequency were to significantly increase, to twice weekly for example, he is considering to going on hospice care * He understands his leukemia is terminal * He will continue to have CBCD checked regularly by his [place] physician and continue supportive transfusions for Hgb </= 7 g/dL * Thrombocytopenia is not at a critical level, but if he < 10K and/or develops active bleeding, he would require PLT transfusion, although if he had severe thrombocytopenia it would also be appropriate to pursue hospice care at that time * He should follow neutropenic precautions given ANC * Patient states he does not want to follow with Hematology in outpatient setting Thanks for the consult. Dr. Hicks is attending first grade teacher- please see his addendum.
[2017-09-22] MEDS ORDERED: GABAPENTIN 400 MG CAP PO SCH (14:00)
--- NOTE | 2017-09-22 14:30 | Discharge Instructions ---
Discharge Instructions Date of Service Sep 22, 2017. Admission Reason for Admission: Aml, Symptomatic Anemia Discharge Discharge Diagnosis / Problem: symptomatic anemia, transfusion-dependent in setting of AML Discharge Goals Goal(s): Prevent Disease Progression Activity Recommendations Activity Limitations: per Instructions/Follow-up section . Current Hospital Diet Patient's current hospital diet: Diabetes Type 2 Diet Discharge Diet Recommended Diet: Diabetes Type 2 Diet Procedures Procedures Performed: Blood transfusion-3 units Pending Studies Studies pending at discharge: no Laboratory Results Hemoglobin A1c Test 09/22/17 06:34 Range/Units Estimated Average Glucose 137 mg/dl Hemoglobin A1c 6.4 H 4.5-5.6 % Medical Emergencies . Who to Call and When: Medical Emergencies: If at any time you feel your situation is an emergency, please call 911 immediately. . Non-Emergent Contact Non-Emergency issues call your: Primary Care Provider . . "Provider Documentation" section prepared by Izzy Brady. .
--- NOTE | 2017-09-22 14:34 | Discharge Summary ---
Discharge Summary Date of Service Sep 22, 2017. Discharge Summary Admission Date: Sep 21, 2017 at 14:03 Discharge Date: Sep 22, 2017 Discharge Disposition: Personal care Principal Diagnosis: Symptomatic anemia 2/2 underlying AML, transfusion-dependent anemia Stage I Decub ulcer-POA Thrombocytopenia AML Cerebral palsy Chronic tetraplegia CKD stage III-creatinine at baseline Diabetes type 2 Hypothyroidism Procedures: Status post 3 units packed red blood cells Vaccinations: None Consultations: Hematology oncology Pending Studies/Follow-Up: See instructions below Medication Reconciliation Continued Medications: Acetaminophen Tab (Tylenol) 325 Mg Tab 650 MG PO Q4 PRN for Fever TEMP >100 , MILD-SEVERE Aspirin (Aspirin) 81 Mg Tab 81 MG PO DAILY Bisacodyl (Bisac-Evac) 10 Mg Sup 1 SUPP RE DAILY PRN for Constipation Camphor & Menthol (Men-Phor) 1 Lot Lot 1 APPLN TOP Q2H PRN for Itching APPLY TO BODY Collagenase (Santyl) 250 Unit/Gm Oin cleanse buttock area with saline, apply thin layer to scabbed area buttocks Duloxetine HCl (Cymbalta) 30 Mg Cap 30 MG PO DAILY for 30 Days, #30 CAP 2 Refills Gabapentin (Neurontin) 400 Mg Cap 400 MG PO TID, CAP Home O2 Therapy (Oxygen) Gas 2-4 LITERS NA PRN *TITRATE TO KEEP O2 ABOVE 90%* Hydroxyzine Hcl (Atarax) 25 Mg Tab 25 MG PO Q6 PRN for Itching, TAB Insulin Glargine (Lantus Solostar) 100 Unit/Ml Inj 10 UNITS SQ HS, VIAL Ipratropium-Albuterol (Duoneb) 3 Ml Nebu 1 TREATMENT INH Q4H PRN for Wheezing Lansoprazole (Prevacid) 15 Mg Cap 15 MG PO DAILYBB for gerd, CAP give 30 prior to first meal of the day Levothyroxine Sodium (Synthroid) 50 Mcg Tab 50 MG PO DAILY for 30 Days, TAB 5 Refills Magnesium Hydroxide (Milk Of Magnesia) 30 Ml Susp 30 ML PO DIRECTED PRN for Constipation, ML Menthol (Mouth-Throat) ([place] Cough Drops) 7 Mg Jossie 1 DROP PO Q2H Morphine Sulfate (Morphine Sulfate) 10 Mg/0.5 Ml Soln 0.5 ML PO Q2H PRN for Pain Ondansetron Hcl (Zofran) 4 Mg Tab 1 TAB PO Q6 PRN for Nausea or Vomiting, #10 TAB 1 Refill Oxycodone Ir (Roxicodone Ir) 5 Mg Tab 5 MG PO QID, TAB Polyethylene Glycol 3350 (Miralax) 1 Pow Pow 17 GM PO DAILY Ranitidine (Zantac) 150 Mg Tab 150 MG PO BID Sodium Phosphates (Fleet Enema Six Pack) 1 Chastity Chastity 1 SUPP RE DIRECTED Tizanidine (Zanaflex ) 4 Mg Tab 4 MG PO TID, TAB Admission Information HPI (per Admitting provider): Pt is 77 y/o M with PMH AML with chronic anemia, cerebral palsy, CKD III, DM II , hypothyroidism, GERD presented to ER for anemia. Patient has been receiving blood transfusions for anemia, with increasing transfusions needed approximately every 2 weeks. Per outpatient records discussion with patient and family about palliative care however patient has denied. Patient had labs on 09/18/17 with hemoglobin of 5.8. Patient states has been feeling well, reports eating and drinking normally and is denying any shortness of breath or chest pain. Pt admits to picking at scabs to his right forearm, denies other rashes. Reports chronic lower extremity paresthesias, denies any worsening. Uses wheelchair. Today in ER Hgb: 4.9. Denies fever/chills, diaphoresis, N/V/D/C , EMANUEL, dizziness, syncope, vision changes, neck pain, CP, SOB, orthopnea, palpitations, cough, sore throat, choking, otalgia, rhinorrhea, abdominal pain, extremity edema, urinary symptoms, melena, hematochezia, epistaxis. Physical Exam (per Admitting): General Appearance: WD/WN, no apparent distress Head: normocephalic, atraumatic Eyes: normal inspection, PERRL, EOMI, sclerae normal, + pertinent finding ( pale conjunctiva) ENT: hearing grossly normal, pharynx normal, + pertinent finding (mucous membranes mildly dry) Neck: supple, no JVD, trachea midline Respiratory/Chest: lungs clear, normal breath sounds, no respiratory distress Cardiovascular: regular rate, rhythm, no murmur Abdomen/GI: normal bowel sounds, non tender, soft Extremities/Musculoskelatal: + pertinent finding (bilateral fingers, toes contracted, limited ROM arms and legs bilaterally. sensation to light touch intact, normal distal pulses) Neurologic/Psych: alert, normal mood/affect, oriented x 3 Skin: warm/dry, + pertinent finding (pale, Right forearm with abrasions without surrounding erythema) Hospital Course 77-year-old male with history of acute myelogenous leukemia and transfusion of dependent anemia presents to the ER with complaints of weakness. He had bone marrow biopsy last fall and per family, oncologist and patient discussion it was decided to not pursue treatment and continue supportive care as needed. The patient has required several blood transfusions since that time. He presents with symptomatic anemia with an H&H of 15/5. He denies any history of bleeding and this is confirmed by family. On arrival to the ER blood pressure is 102/65 pulse 82. The patient is afebrile oxygenating 95% on room air. On physical exam he is elderly chronically unwell appearing but in no distress. Mucous membranes are moist. Lung and heart exams are normal. He was admitted to the hospitalist service and transfused 3 units of packed red blood cells. Posttransfusion H/H is 03/28. The following day he was alert and appropriate with a jovial disposition. He reported no symptoms with improvement in weakness from the prior day. He felt well and was asking to be transferred back to [facility]. The case was discussed with his medical power of civil attorney, Faraz Osman who is his nephew. He agreed with the plan to send him back posttransfusion. Physical exam was unremarkable aside from changes consistent with chronic cerebral palsy. The patient notably had a mild cough, however per medical POA this cough is chronic and related to cerebral palsy. He was hemodynamically stable and afebrile. He was mentating at baseline and tolerating p.o. He is bedbound at baseline. He was just discharged in guarded condition as a result of his AML status back to [facility]. Total time spent on discharge = 60 minutes This includes examination of the patient, discharge planning, medication reconciliation, and communication with other providers. Discharge Instructions [facility] [address] [place] [address] Discharge Medical Patient Name: Taras Schmitz Unit Number: [id number] Date of : 1940 Patient Status: Admitted Inpatient Attending Doctor: Izzy Brady DO DI: Medical v5 Discharge Instructions Date of Service Sep 22, 2017. Admission Reason for Admission: Aml, Symptomatic Anemia Discharge Discharge Diagnosis / Problem: symptomatic anemia, transfusion-dependent in setting of AML Discharge Goals Goal(s): Prevent Disease Progression Activity Recommendations Activity Limitations: per Instructions/Follow-up section . Current Hospital Diet Patient's current hospital diet: Diabetes Type 2 Diet Discharge Diet Recommended Diet: Diabetes Type 2 Diet Procedures Procedures Performed: Blood transfusion-3 units Pending Studies Studies pending at discharge: no Laboratory Results Hemoglobin A1c Test 09/22/17 06:34 Range/Units Estimated Average Glucose 137 mg/dl Hemoglobin A1c 6.4 H 4.5-5.6 % Medical Emergencies . Who to Call and When: Medical Emergencies: If at any time you feel your situation is an emergency, please call 911 immediately. . Non-Emergent Contact Non-Emergency issues call your: Primary Care Provider . . "Provider Documentation" section prepared by Izzy Brady. . Additional Copies To Hilda Iniguez P.A.
[2017-09-22 19:10] LABS: HEMOGLOBIN 8.5 g/dL (14.0-18.0)
== END 2017-09-22 19:45 | DRG 834 ==
LOC: EDBD 10:05 → C.EDA 10:06 → EDBEDREQSVC 12:20 → EDBEDREQ 12:20 → ENRESERV 12:29 → C.4E 14:03
PROVIDERS: ADMIT Hospitalist; ATTEND Hospitalist
DX: C92.00 Acute myeloblastic leukemia, not having achieved remission (principal); G82.50 Quadriplegia, unspecified; J96.11 Chronic respiratory failure with hypoxia; N17.9 Acute kidney failure, unspecified; D61.818 Other pancytopenia; Z66 Do not resuscitate; G80.9 Cerebral palsy, unspecified; E11.22 Type 2 diabetes mellitus with diabetic chronic kidney disease; N18.3 Chronic kidney disease, stage 3 (moderate); L89.91 Pressure ulcer of unspecified site, stage 1; K21.9 Gastro-esophageal reflux disease without esophagitis; E03.9 Hypothyroidism, unspecified; D75.9 Disease of blood and blood-forming organs, unspecified; Z87.440 Personal history of urinary (tract) infections; Z87.891 Personal history of nicotine dependence; Z79.82 Long term (current) use of aspirin; Z99.81 Dependence on supplemental oxygen; Z79.4 Long term (current) use of insulin; Z88.1 Allergy status to other antibiotic agents; Z99.3 Dependence on wheelchair

== ENCOUNTER 2018-01-19 21:40 | Inpatient (IN) | payer OTHER ==
[~2018-01-19] VITALS: Ht 165.1 cm; Wt 71.6 kg
[~2018-01-19 21:40] MED LIST changes: +ACET-1693 PO; +ASPI-461 PO; -ATV/1 PO; +BISA10SU7 RE; +CYM/30 PO; -DULO60CA44 PO; +GABA-1220 PO; +HYDR-3124 PO; +INSDGIPEN SQ; +IPRA-64 INH; +LANS15CA6 PO; +ONDA4TAB65 PO; +OXYC-90 PO; -OXYC1TAB3 PO; +POLY335019 PO; -PRAM1LOT TOP; -PRED-301 PO; +RANI150T85 PO; +RXNS10 PO; +SNTONWC TOP; -TIZA4CAP PO; +ZNF4 PO; +orajel TOP
[2018-01-19] MEDS ORDERED: SODIUM CHLORIDE 0.9% 1000ML 2,000 ML IV STA (21:54)
[2018-01-19] MEDS ORDERED: AZTREONAM IV 2,000 MG in DEXTROSE 5% 100ML 100 ML IV STA (22:05)
[2018-01-19] MEDS ORDERED: LINEZOLID / D5W 600 MG in PREMIXED IN D5W 300 ML IV STA (22:05)
[2018-01-19] MEDS ORDERED: LEVAQUIN 750MG / 150ML D5W IV STA (22:05)
[2018-01-19 22:50] LABS: HEMATOCRIT 16.8 % (42-52); HEMOGLOBIN 5.4 g/dL (14.0-18.0); MEAN CELL VOLUME 88.4 fL (80-100); MEAN CORPUSCULAR HEMOGLOBIN 28.4 pg (25-34); MEAN CORPUSCULAR HGB CONC 32.1 g/dl (32-36); MEAN PLATELET VOLUME 11.3 fL (7.4-10.4); NUCLEATED RED BLOOD CELL ABS 0.03 K/uL (0-0); PLATELET COUNT 156 K/uL (130-400); RED CELL DISTRIBUTION WIDTH CV 17.1 % (11.5-14.5); RED CELL DISTRIBUTION WIDTH SD 49.2 fL (36.4-46.3); WHITE BLOOD COUNT 5.98 K/uL (4.8-10.8)
[2018-01-19 22:51] LABS: INR 1.3 (0.9-1.1); PTT PATIENT 37.8 SECONDS (21.0-31.0)
[2018-01-19 23:01] LABS: ISTAT IONIZED CALCIUM 1.03 mmol/l (1.12-1.32); ISTAT POTASSIUM 5.1 mEq/L (3.3-5.0)
[2018-01-19] MEDS ORDERED: ANT PO (23:08)
[2018-01-19] MEDS ORDERED: [UNRECOGNIZED DRUG - CODE] TOP (23:08)
[2018-01-19] MEDS ORDERED: GUAI100S75 PO (23:08)
[2018-01-19] MEDS ORDERED: BCTCR/30 EXT (23:08)
[2018-01-19] MEDS ORDERED: IPRA-64 INH (23:08)
[2018-01-19] MEDS ORDERED: LEVO500T19 PO (23:08)
[2018-01-19] MEDS ORDERED: SILV1CRE73 TOP (23:08)
[2018-01-19] MEDS ORDERED: DOXY100T PO (23:08)
[2018-01-19 23:09] LABS: ALBUMIN 1.9 gm/dl (3.4-5.0); ALKALINE PHOSPHATASE 57 U/L (45-117); ALT/SGPT 20 U/L (12-78); AST/SGOT 22 U/L (15-37); BLOOD UREA NITROGEN 44 mg/dl (7-18); CALCIUM 7.4 mg/dl (8.5-10.1); CARBON DIOXIDE 24 mmol/L (21-32); CREATININE 2.99 mg/dl (0.60-1.40); GLUCOSE 120 mg/dl (70-99); POTASSIUM 4.9 mmol/L (3.5-5.1); SODIUM 130 mmol/L (136-145); TOTAL PROTEIN 9.2 gm/dl (6.4-8.2)
--- NOTE | 2018-01-19 23:11 | DIAGNOSTIC IMAGING REPORT ---
CHEST ONE VIEW PORTABLE HISTORY: Sepsis COMPARISON: Chest 08/09/2017. FINDINGS: No pneumothorax. No pleural effusions. The heart remains enlarged. Interval development of a left basilar airspace opacity. No evidence for pulmonary edema. IMPRESSION: There is a new left lower lobe airspace opacity. This likely represents a pneumonia. One month chest x-ray follow-up is recommended to ensure resolution. Electronically signed by: Haseeb Monteiro M.D. 01/19/2018 11:09 PM Dictated Date/Time: 01/19/2018 11:08 PM
[2018-01-19] MEDS ORDERED: ACETAMINOPHEN 325 MG TAB PO STA (23:49)
[2018-01-20] VITALS (17 sets, daily range): BP systolic 94–164; BP diastolic 62–91; PULSE 67–80; TEMP 36.4–37; O2SAT 92–100; Ht 165.1 cm; Wt 71.6 kg
--- NOTE | 2018-01-20 00:02 | Progress Note ---
Progress Note Post Crystalloid Evaluation Date: Jan 20, 2018 Time: 00:05 Subjective Junky cough Physical Exam Vital Signs: Vital Signs Date Time Temp Pulse Resp B/P (MAP) Pulse Ox O2 Delivery O2 Flow Rate FiO2 01/19/18 23:34 91/55 94 Nasal Cannula 3.0 01/19/18 23:01 71 20 01/19/18 21:51 37.6 Lungs: + decreased breath sounds, + rhonchi Heart: regular rate, rhythm Peripheral Pulse: Normal Capillary Refill: Normal (less than 2 seconds) Skin: Pale Assessment & Plan Presence of: Severe Sepsis Severe sepsis SIRS plus hypoxemic respiratory failure plus ARF on CRI secondary to healthcare associated pneumonia Failed outpatient Rx known aspiration risk. CS, Zyvox, Imipenem for HCAP. Follow up swallow eval. Aspiration precautions .
[2018-01-20] MEDS ORDERED: SODIUM CHLORIDE 0.9% 1000ML 1,000 ML IV STA (00:20)
[2018-01-20] MEDS ORDERED: ALBUT/IPRATROP 3MG/0.5MG NEB 3 ML VIAL INH STA (00:52)
[2018-01-20] MEDS ORDERED: CARBOHYDRATES FOR HYPOGLYCEMIA PO PRN (01:00)
[2018-01-20] MEDS ORDERED: PROCHLORPERAZINE INJ 5 MG in SYRINGE 4 ML IV PRN (01:00)
[2018-01-20] MEDS ORDERED: GLUCAGON FOR INJ 1 MG VIAL SQ PRN (01:00)
[2018-01-20] MEDS ORDERED: NITROGLYCERIN 0.4 MG SL PER TAB CHARGE SL PRN (01:00)
[2018-01-20] MEDS ORDERED: HYDROmorphone INJ 0.5 MG/0.5 ML SYR IV PRN (01:00)
[2018-01-20] MEDS ORDERED: GLUCOSE 10 TABS/TUBE PO PRN (01:00)
[2018-01-20] MEDS ORDERED: ALBUT/IPRATROP 3MG/0.5MG NEB 3 ML VIAL INH PRN (01:00)
[2018-01-20] MEDS ORDERED: DEXTROSE 50% 50 ML SYR IV PRN (01:00)
[2018-01-20] MEDS ORDERED: GLUCOSE 40% GEL 15 GM TUBE PO PRN (01:00)
--- NOTE | 2018-01-20 01:29 | EMERGENCY ROOM VISIT NOTE ---
ED Visit Note First contact with patient: 21:44 Pt seen and examined after seen by PA due to hypotension and outpt labs showing anemia. PA also concerned about possible evolving sepsis given cough and fever. H/H very low and blood products ordered. Pt clinically dry and IVF ordered also. BP did improved with IVF while awaiting blood products. Continued to improved once blood products were started. Pt not hypoxic. Pneumonia noted on cxr and IV antibiotics ordered also. Cultures pending. Lactate not significantly elevated. Blood consent signed in ER.
[2018-01-20] MEDS ORDERED: IMIPENEM/CILASTATIN IV 500 MG in DEXTROSE 5% 100ML 100 ML IV STA (01:34)
[2018-01-20] MEDS ORDERED: INSULIN ASPART 100 UNITS/ML 3 ML PEN SC ONE (02:00)
[2018-01-20] MEDS ORDERED: INSULIN GLARGINE SOLOSTAR 100 UNITS/ML 3 ML PEN SQ ONE (02:00)
[2018-01-20] MEDS ORDERED: METHYLPREDNISOLONE IV 20 MG in SYRINGE 0 ML IV ONE (02:00)
[2018-01-20] MEDS ORDERED: LINEZOLID CONSULT ACTIVE PRN (04:15)
--- NOTE | 2018-01-20 05:08 | EMERGENCY ROOM VISIT NOTE ---
History First contact with patient: 21:44 Chief Complaint: HYPOTENSION Stated Complaint: SEPSIS History of Present Illness The patient is a 77 year old male who presents to the Emergency Room with complaints of fever, chills, increasing cough, lethargy for the past few days. Patient has AML with chronic anemia, CP, stage III kidney disease, diabetes, hypothyroidism, GERD who has been admitted here multiple times in the past for severe anemia requiring blood transfusions. Patient has [facility] Symptoms got worse and he was hypotensive and he was sent in for further evaluation treatment. Patient denies chest pain, dyspnea, abdominal pain, vomiting, diarrhea, headache. Patient states he feels quite fatigued. Blood pressure [facility] 66/40 [facility] the [facility]. T-max is 102. Review of Systems An 10 system review of systems was completed with positives and pertinent negatives listed in the HPI. Past Medical/Surgical History Medical Problems: (1) AML (acute myeloblastic leukemia) (2) Anemia (3) Bone marrow disorder (4) Cerebral palsy (5) Chronic respiratory failure with hypoxia (6) Chronic tetraplegia (7) CKD (chronic kidney disease) stage 3, GFR 30-59 ml/min (8) DMII (diabetes mellitus, type 2) (9) Fever (10) GERD (gastroesophageal reflux disease) (11) Hypothyroidism (12) Sepsis (13) Symptomatic anemia (14) Syncope (15) UTI (urinary tract infection) Family History Hypertension Social History Smoking Status: Former Smoker Alcohol Use: none Drug Use: none Marital Status: Housing Status: [facility] Occupation Status: disabled Current/Historical Medications Scheduled Antacid (Antacid), 30 ML PO UD Aspirin (Aspirin), 81 MG PO DAILY Collagenase (Santyl), 1 APPL TOP UD Doxycycline Hyclate (Doxycycline Hyclate), 1 TAB PO BID Duloxetine HCl (Cymbalta), 1 CAP PO DAILY Gabapentin (Neurontin), 400 MG PO TID Insulin Glargine (Lantus Solostar), 10 UNITS SQ HS Ipratropium-Albuterol (Duoneb), 1 TREATMENT INH QID Lansoprazole (Prevacid), 30 MG PO DAILY Levofloxacin (Levaquin), 1 TAB PO DAILY Levothyroxine Sodium (Synthroid), 50 MG PO DAILY Mupirocin 2% (Bactroban 2%), 1 APPLN EXT UD Oxycodone Ir (Roxicodone Ir), 5 MG PO QID Polyethylene Glycol 3350 (Miralax), 17 GM PO DAILY Ranitidine (Zantac), 150 MG PO BID Silver Sulfadiazine (Silvadene), 1 APPLN TOP BID Sodium Phosphates (Fleet Enema Six Pack), 1 SUPP RE DIRECTED Tizanidine (Zanaflex ), 4 MG PO TID Scheduled PRN Acetaminophen Tab (Tylenol), 650 MG PO Q4 PRN for Fever Bisacodyl (Bisac-Evac), 1 SUPP RE DAILY PRN for Constipation Camphor & Menthol (Men-Phor), 1 APPLN TOP Q2H PRN for Itching Guaifenesin (Siltussin Sa), 10 ML PO Q4 PRN for Cough Hydroxyzine Hcl (Atarax), 25 MG PO Q6 PRN for Itching Ipratropium-Albuterol (Duoneb), 1 TREATMENT INH Q4H PRN for Wheezing Magnesium Hydroxide (Milk Of Magnesia), 30 ML PO DIRECTED PRN for Constipation Menthol (Mouth-Throat) ([place] Cough Drops), 1 DROP PO Q2H PRN for Cough Ondansetron Hcl (Zofran), 1 TAB PO Q6 PRN for Nausea or Vomiting [orajel], 1 APPLN TOP Q2H PRN for SORE GUMS Physical Exam Vital Signs Date Time Temp Pulse Resp B/P (MAP) Pulse Ox O2 Delivery O2 Flow Rate FiO2 01/20/18 00:17 78 15 95/55 97 Nasal Cannula 3.0 01/19/18 23:34 91/55 94 Nasal Cannula 3.0 01/19/18 23:01 71 20 84/53 96 Nasal Cannula 3.0 01/19/18 23:00 96 Nasal Cannula 3.0 01/19/18 21:53 74 01/19/18 21:51 37.6 75 20 76/40 96 Nasal Cannula 2.0 Physical Exam VITALS: Vitals are noted on the nurse's note and reviewed by myself. Vital signs hypertensive. GENERAL: Chronically ill-appearing male, in mild acute distress, nondiaphoretic SKIN: Multiple healing abrasions to the upper extremities without signs of infection. The rest of the skin was without rashes, erythema, edema, or bruising. HEAD: Normocephalic atraumatic. EARS: External auditory canals clear, tympanic membranes pearly reynolds without erythema or effusion bilaterally. EYES: Pupils equal round and reactive to light and accommodation. Conjunctivae without injection, sclerae without icterus. Extraocular movements intact. NOSE: Patent, turbinates without inflammation or discharge. No sinus tenderness. MOUTH: Mucous membranes dry. Pharynx without erythema or exudate. Uvula midline. Airway patent. Tongue does not deviate. NECK: Supple without nuchal rigidity. No lymphadenopathy. No thyromegaly. Cervical spine is nontender. No JVD. HEART: Regular rate and rhythm LUNGS: Mild diffuse inspiratory and end expiratory wheezes, rales or rhonchi. No retractions or accessory muscle use. ABDOMEN: Positive bowel sounds x 4. Normal tympanic percussion. Soft, nontender, without masses or organomegaly. Melgoza sign negative. No guarding or rebound tenderness. No CVA tenderness MUSCULOSKELETAL: No muscle atrophy, erythema, or edema noted. NEURO: Patient was alert and oriented to person place and time. Normal sensation to light and sharp touch. No focal neurological deficits. Medical Decision & Procedures Laboratory Results Test 01/19/18 22:17 01/19/18 22:36 01/19/18 22:45 01/19/18 23:26 RDW Standard Deviation 49.2 fL (36.4-46.3) RDW Coefficient of Variation 17.1 % (11.5-14.5) White Blood Count 5.98 K/uL (4.8-10.8) Red Blood Count 1.90 M/uL (4.7-6.1) Hemoglobin 5.4 g/dL (14.0-18.0) Hematocrit 16.8 % (42-52) Mean Corpuscular Volume 88.4 fL (80-100) Mean Corpuscular Hemoglobin 28.4 pg (25-34) Mean Corpuscular Hemoglobin Concent 32.1 g/dl (32-36) Platelet Count 156 K/uL (130-400) Mean Platelet Volume 11.3 fL (7.4-10.4) Nucleated RBC Absolute Count (auto) 0.03 K/uL (0-0) Nucleated Red Blood Cells % 0.5 % Prothrombin Time 13.6 SECONDS (9.0-12.0) Prothromb Time International Ratio 1.3 (0.9-1.1) Activated Partial Thromboplast Time 37.8 SECONDS (21.0-31.0) Partial Thromboplastin Ratio 1.5 Est Creatinine Clear Calc Drug Dose 20.2 ml/min Osmolality 290 mOsm/kg (280-300) Magnesium Level 2.3 mg/dl (1.8-2.4) Total Bilirubin 0.1 mg/dl (0.2-1) Aspartate Amino Transf (AST/SGOT) 22 U/L (15-37) Alanine Aminotransferase (ALT/SGPT) 20 U/L (12-78) Alkaline Phosphatase 57 U/L (45-117) Troponin I < 0.015 ng/ml (0-0.045) Total Protein 9.2 gm/dl (6.4-8.2) Albumin 1.9 gm/dl (3.4-5.0) Globulin 7.3 gm/dl (2.5-4.0) Albumin/Globulin Ratio 0.3 (0.9-2) Procalcitonin 0.67 ng/ml (0-0.5) Thyroid Stimulating Hormone (TSH) 7.270 uIu/ml (0.300-4.500) Free Thyroxine 1.08 ng/dl (0.80-1.60) Bedside Hemoglobin 5.4 g/dl (14.0-18.0) Bedside Hematocrit 16 % (42-52) Bedside Sodium 131 mEq/L (135-144) Bedside Potassium 5.1 mEq/L (3.3-5.0) Bedside Chloride 97 mEq/L (101-112) Bedside Total CO2 24 mEq/l (24-31) Bedside Blood Urea Nitrogen 47 mg/dl (7-18) Bedside Creatinine 3.0 mg/dl (0.6-1.3) Bedside Glucose (other) 124 mg/dl (70-99) Bedside Ionized Calcium (Olga Lidia) 1.03 mmol/l (1.12-1.32) Urine Color YELLOW Urine Appearance CLOUDY (CLEAR) Urine pH 6.5 (4.5-7.5) Urine Specific [place] 1.017 (1.000-1.030) Urine Protein 1+ (NEG) Urine Glucose (UA) NEG (NEG) Urine Ketones NEG (NEG) Urine Occult Blood 2+ (NEG) Urine Nitrite NEG (NEG) Urine Bilirubin NEG (NEG) Urine Urobilinogen NEG (NEG) Urine Leukocyte Esterase TRACE (NEG) Urine WBC (Auto) 5-10 /hpf (0-5) Urine RBC (Auto) 10-30 /hpf (0-4) Urine Hyaline Casts (Auto) 1-5 /lpf (0-5) Urine Epithelial Cells (Auto) >30 /lpf (0-5) Urine Bacteria (Auto) NEG (NEG) Bedside Lactic Acid Venous 1.64 mmol/L (0.90-1.70) Test 01/19/18 23:52 Lactic Acid Level 1.5 mmol/L (0.4-2.0) Medications Administered Medications (Trade) Dose Ordered Sig/Lucille Route Start Time Stop Time Status Last Admin Dose Admin Sodium Chloride 2,000 ml @ 999 mls/hr Q2H1M STAT IV 01/19/18 21:54 01/19/18 23:54 DC 01/19/18 22:00 999 MLS/HR Linezolid 600 mg/ Prmx 300 ml @ 300 mls/hr ONE STAT IV 01/19/18 22:05 01/19/18 23:04 DC 01/19/18 22:05 300 MLS/HR Levofloxacin (Levaquin / D5W) 750 mg NOW STAT IV 01/19/18 22:05 01/19/18 22:08 DC 01/19/18 23:05 750 MG Aztreonam 2000 mg/ Dextrose 110 ml @ 100 mls/hr NOW STAT IV 01/19/18 22:05 01/19/18 23:10 DC 01/19/18 23:11 100 MLS/HR ED Course Prior records/ancillary studies reviewed and summarized above. Nursing notes reviewed. Additional history obtained from EMS. The patient's history was concerning for hypertension, fever, cough, increasing lethargy. Differential diagnosis: Etiologies such as metabolic, infection, hypo/hyperglycemia, electrolyte abnormalities, cardiac sources, intracerebral event, toxicologic, neurologic, as well as others were entertained. Physical examination: As above. ER treatment provided: IV Lock IV fluids, aztreonam, Levaquin, linezolid, patient was typed and screened and transfused 2 units of blood On reassessment the patient felt better. Diagnostics interpretation by me: ECG: Normal sinus, normal intervals, no acute ST-T wave changes, rate is 72. Impression normal sinus rhythm interpreted by myself I think arrhythmia is unlikely. EKG shows normal sinus rhythm with no interval abnormalities such as QT prolongation or WPW. There are no findings to suggest Brugada syndrome. Cardiac monitoring in the emergency department reveals no tachycardic or bradycardic dysrhythmia. Hypertrophic cardiomyopathy was considered but there are no clear historical elements pointing toward this. EKG is not suggestive. The QRS voltage is not extremely large and there are no suggestive Q waves. The labs revealed severe anemia. Patient has been this low in the past. Creatinine is 3. Patient's creatinine when he was admitted last time was 1.7 Negative troponin. Elevated lactic acid. Elevated pro calcitonin Blood cultures pending Imaging studies: Chest x-ray concerning for left lower lobe pneumonia per my interpretation Consultation: A consultation was placed with the hospitalist Dr. Bolivar. The case was discussed and diagnostics were reviewed. The patient was evaluated in the ER for further treatment. Exam and history seems consistent with severe anemia, hypotension, pneumonia with developing sepsis. Patient was evaluated and 2 lines were initiated immediately. Patient was given broad-spectrum antibiotics. He has a penicillin and a cephalosporin allergy. He was hydrated per septic protocol. Blood cultures and lactic ordered. Patient was typed and crossed for 2 units of blood. He was admitted to medical service. He was reassessed multiple times. By the evaluation outlined above emergent etiologies such as electrolyte abnormalities, cardiac sources, intracerebral event, toxologic, neurologic, as well as others were deemed relatively unlikely. The pt informed about the findings as listed above. All questions were answered and pleased with the treatment. Case reviewed with my attending The chart was completed utilizing [employer] Speech voice recognition software. Grammatical errors, random word insertions, pronoun errors, and incomplete sentences are an occassional consequence of this system due to software limitations, ambient noise, and hardware issues. Any formal questions or concerns about the content, text, or information contained within the body of this dictation should be directly addressed to the physician night assistant for clarification. Medical Decision as above Medication Reconcilliation Current Medication List: was personally reviewed by me Blood Pressure Screening Patient's blood pressure: Low blood pressure Impression Primary Impression: Sepsis Additional Impressions: Pneumonia Anemia Critical Care I have personally spent greater than 30 minutes of critical care time in the direct management of this patient. This includes bedside care, interpretation of diagnostic studies, and testing, discussion with consultants, patient, and family members, and other required patient management activities. This 30 minutes is in excess of all separately billable procedures. Departure Information Dispostion Being Evaluated By Hospitalist Condition FAIR Referrals Geo Varela M.D. (PCP) Patient Instructions My [facility] Problem Qualifiers Primary Impression: Sepsis Sepsis type: sepsis due to unspecified organism Qualified Codes: A41.9 - Sepsis, unspecified organism
[2018-01-20] MEDS: LEVOTHYROXINE 50 MCG TAB PO SCH (05:38)
[2018-01-20] MEDS ORDERED: SODIUM CHLORIDE 0.9% 1000ML 1,000 ML IV ONE (06:15)
[2018-01-20] MEDS ORDERED: ENOXAPARIN 30 MG/0.3 ML SYR SC SCH (08:00)
[2018-01-20 08:07] LABS: CALCIUM 7.8 mg/dl (8.5-10.1); CREATININE 2.53 mg/dl (0.60-1.40)
[2018-01-20] MEDS: POLYETHYLENE (MIRALAX) 17 GM PACK PO SCH (08:07)
--- NOTE | 2018-01-20 08:07 | HISTORY & PHYSICAL EXAMINATION ---
DATE OF ADMISSION: 01/20/2018 PRIMARY CARE DOCTOR: Dr. Varela. CHIEF COMPLAINT: Fever, chills. HISTORY OF PRESENT ILLNESS: History obtained from patient and records. Medical history significant for cerebral palsy, DM2 insulin requiring, Transfusion dependent AML, gastroparesis, neurogenic bladder and bowel as per records, tetraplegia, history of epidural abscess sp surgery, past tobacco abuse, history of MRSA as per records, aspiration risk as per records. Chronic renal insufficiency (baseline creatinine 1.7 to 2). 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 Patient came in with a hemoglobin of 5. Subsequent transfusion done. Weekly CBCs being done at [facility]. Progressive hemoglobin decline from 8.9 (01/01) to 7.9 (01/08) to 6.9 (01/17) on review of outpatient blood work. No overt bleeding noted. Outpatient blood transfusion scheduled this weekend. As per outpatient [facility] provider notes, Oncology recommended comfort measures, but the patient and family refused comfort measures. Blood transfusions for hemoglobin less than 6. half-way PCP had another lengthy discussion with family regarding issue but family insisting on the transfusion. Last few days, patient will be weak, tired. Patient complaining of back pain, fatigue, junky cough symptoms. The patient not sure about aspiration. No chest pain. Some shortness of breath. No headache. Patient treated with Levaquin for bronchitis. [facility] concerned about low BP last night. At the Emergency Room, blood pressure noted to be initially SBPs 70s. NSS, Zyvox, Levaquin, and Azactam given for sepsis. SBP currently 90s. MEDICAL HISTORY: As above. Swallow eval August 2017 inpatient note recommended strict aspiration precautions. Use speech consult if with worsening symptoms. SURGICAL HISTORY: He has had neck surgery, feeding tube placement, tracheostomy , drainage of epidural abscess. HOME MEDICATIONS: Include doxycycline, Cymbalta, Neurontin, Atarax, DuoNeb, Lantus, Levaquin, Synthroid, Prevacid, milk of mag, Silvadene, Fleet Enema, Zanaflex, Orajel, Bactroban, Zofran, oxycodone, MiraLax, Zantac, aspirin, antacid, bisacodyl, Santyl. ALLERGIES: TO AMOXICILLIN, VANCOMYCIN, CLAVULANIC ACID. FAMILY HISTORY: Hypertension. PERSONAL AND SOCIAL HISTORY: Past tobacco abuse. No chronic intake of alcoholic beverages. half-way resident. REVIEW OF SYSTEMS: As per HPI, all 10 systems reviewed. All other ROS negative. PHYSICAL EXAMINATION: VITAL SIGNS: Blood pressure noted to be 76/40, later 95/55, pulse rate 72, RR 18, temperature 37.6. O2 sats 94 on 3 L GENERAL: Noted to be chronically ill, dysarthric (chronic). No respiratory distress. SKIN: Pallor, warm. HEENT: Alopecia. Pale palpebral conjunctivae. No ptosis. Chronic facial asymmetry noted during speech, nasal cannula in place. NECK: Short, supple. CHEST: Decreased effort. Occasional wheeze. HEART: Regular rate and rhythm. No murmur. ABDOMEN: Some distention, none tender. BACK: Exam showed red area in the left buttock. RECTAL: Intact sphincter. Brown stool, heme negative. EXTREMITIES: Spastic contractures. No LE tenderness. NEUROLOGIC: Coherent, chronic dysarthria, chronic facial asymmetry. Limited strength on MMTs. LABORATORY DATA: Hemoglobin 5.4, platelets 156, white cell count is 598. Sodium noted to be 130, potassium 4.9, chloride 97, CO2 24, BUN 44, creatinine 2.9, glucose was noted to be 120. Hemoglobin A1c 08/2017 was 6.4. ABG: pH 7.32, pCO2 of 43, pO2 84, 90% on 4 L. Chest x-ray, new left lobe opacity. CT abdomen and pelvis initial read, patchy irregular consolidation with focal vascular thickening involving the bilateral lower lobes, right middle, lingula concern for pneumonia, cholelithiasis without cholecystitis. No shadowing distended bladder. Appendix not identified. EKG as per my interpretation, rate 70, NSR, no ischemia. ASSESSMENT: 1. Severe sepsis SIRS plus hypoxemic respiratory failure plus ARF on CRI secondary to healthcare associated pneumonia hx MRSA Failed outpatient Levaquin Rx for bronchitis symptoms. known aspiration risk. 2. Subacute anemia Progressive decline over the last few weeks of hemoglobin secondary to transfusion dependent AML not on chemo 3. Hypotension secondary to illness Improved after fluid resuscitation in the ER 4. history of old CVA on CT 5. history of cerebral palsy. 6. DM2, insulin requiring well controlled as of recent inpatient HgA1c. 7. Past tobacco abuse PLAN: PCU CS, Zyvox, Imipenem for HCAP. Follow up swallow eval. Aspiration precautions . supplemental O2 Solu-Medrol 1 dose for bronchospasm Monitor creatinine response to IV fluids. Transfuse pRBC to maintain hemoglobin greater than 8 (Hx CVA old CT scan.) Basal insulin, ISS BG goal 140-180. DVT prophylaxis, Heparin subQ. DNR. Total critical time was 50 minutes. MTDD
[2018-01-20] MEDS: GABAPENTIN 100 MG CAP PO SCH ×3 (08:10→21:18)
[2018-01-20] MEDS: RANITIDINE HCL 150 MG TAB PO SCH ×2 (08:10→21:18)
[2018-01-20] MEDS: LANSOPRAZOLE SOLUTAB 30 MG PO SCH (08:10)
[2018-01-20] MEDS: ASPIRIN 81 MG ECTAB PO SCH (08:18)
[2018-01-20] MEDS: INSULIN ASPART 100 UNITS/ML 3 ML PEN SC SCH ×4 (08:18→21:00)
[2018-01-20 08:23] LABS: HEMATOCRIT 23.9 % (42-52); HEMOGLOBIN 8.2 g/dL (14.0-18.0); MEAN CELL VOLUME 85.1 fL (80-100); MEAN CORPUSCULAR HEMOGLOBIN 29.2 pg (25-34); MEAN CORPUSCULAR HGB CONC 34.3 g/dl (32-36); MEAN PLATELET VOLUME 11.6 fL (7.4-10.4); PLATELET COUNT 144 K/uL (130-400); RED CELL DISTRIBUTION WIDTH CV 16.3 % (11.5-14.5); RED CELL DISTRIBUTION WIDTH SD 47.4 fL (36.4-46.3); WHITE BLOOD COUNT 2.35 K/uL (4.8-10.8)
--- NOTE | 2018-01-20 08:37 | DIAGNOSTIC IMAGING REPORT ---
ABDOMEN AND PELVIS CT WITHOUT CONTRAST CT DOSE: 973.28 mGy.cm HISTORY: Weakness. back pain TECHNIQUE: Multiaxial CT images of the abdomen and pelvis were performed without contrast. A dose lowering technique was utilized adhering to the principles of ALARA. COMPARISON STUDY: Abdomen and pelvis CT 03/26/2017. FINDINGS: Bibasilar patchy airspace opacities with reticulonodular interstitial thickening at the lung bases. This likely represents a pneumonia. Consolidation seen within the right middle lobe. Irregular density within the lingula is also likely due to the pneumonia. No pneumoperitoneum. No pneumatosis. No suspicious lytic or blastic osseous lesions. Multiple small gallstones are again noted. No hepatic or splenic masses. Normal adrenal glands and pancreas. Left-sided nephrolithiasis. No hydronephrosis. Bilateral cortical renal scarring persists. No change in the mild right perinephric edema. There is trace pericholecystic edema. The gallbladder is mildly distended. Normal caliber common bile duct. The bladder is distended. Mild inflammatory change surrounding the prostate gland, unchanged. Moderate stool within the rectum. Suboptimal evaluation for bowel pathology due to the lack of intravenous and oral contrast. However, there is no definite bowel wall thickening or obstruction. Question of a punctate stone versus adjacent pancreatic calcification near the distal common bile duct. This is best seen on image 201. Mild urothelial thickening within the left renal pelvis, unchanged. Left perinephric edema has slightly progressed. IMPRESSION: 1. Progressive bibasilar airspace opacities. This likely represents a pneumonia. 2. Cholelithiasis. The gallbladder is mildly distended and there is trace pericholecystic inflammatory change/edema. There is a punctate calcification either within or adjacent to the distal common bile duct. However, the common bile duct is normal in caliber. Recommend correlation with LFTs to exclude the possibility of a distal common bile duct stone and developing acute cholecystitis. This finding was called/faxed to the emergency Department following dictation. 3. Left-sided nephrolithiasis. No ureteral stones. No hydronephrosis. 4. Slight progression of the left perinephric edema. This could be chronic or due to a superimposed infectious process. Recommend correlation with urinalysis. Electronically signed by: Haseeb Monteiro M.D. 01/20/2018 8:36 AM Dictated Date/Time: 01/20/2018 8:28 AM
[2018-01-20] MEDS ORDERED: IMIPENEM/CILASTATIN CONSULT ACTIVE PRN (09:00)
[2018-01-20] MEDS ORDERED: DULOXETINE (CYMBALTA) 30 MG CAP PO SCH (09:00)
[2018-01-20] MEDS: IMIPENEM-CILASTATIN 200 MG in DEXTROSE 5% 100ML 100 ML IV SCH ×3 (11:30→21:18)
[2018-01-20] MEDS: LINEZOLID 600MG / D5W IV SCH ×2 (11:31→21:18)
[2018-01-20 12:46] LABS: HEMATOCRIT 25.8 % (42-52); HEMOGLOBIN 8.7 g/dL (14.0-18.0)
--- NOTE | 2018-01-20 15:28 | Medical Consult ---
Consultation Date of Consultation: Jan 20, 2018. Attending Physician: Norman Tran M.D. Reason for Consultation: Imipenem use, sepsis, HCAP History of Present Illness 77-year-old male with complicated past medical history including cerebral palsy , type 2 diabetes mellitus, AML (transfusion dependent), stage 3 chronic kidney disease, hospitalized in October for severe anemia requiring transfusions, who reportedly developed fever, chills, cough, mild shortness of breath several days ago and was started on levofloxacin for possible respiratory tract infection. Symptoms persisted, patient developed hypotension with worsening anemia, was sent to the emergency room for further management. Chest x-ray, also read by me, showed evidence of left lower lobe consolidation. Patient also had abdominal CT which raise the possibility of developing cholecystitis. He has been started on imipenem and linezolid, blood cultures are no growth to date, MRSA screen is negative. No report of obvious aspiration event. Had not been complaining of significant abdominal pain prior to admission. Past Medical/Surgical History Medical Problems: (1) Altered mental status Status: Acute (2) AML (acute myelogenous leukemia) Status: Acute (3) Elevated serum creatinine Status: Acute (4) Hypotension Status: Acute (5) Hypotension Status: Acute (6) Pancytopenia Status: Acute (7) Pneumonia Status: Acute (8) Pneumonia Status: Acute (9) Sepsis Status: Acute (10) Sepsis Status: Acute (11) Severe anemia Status: Acute (12) Severe anemia Status: Acute (13) Tachycardia Status: Acute (14) Thrombocytopenia Status: Acute (15) TIA (transient ischemic attack) Status: Acute Medical Problems: (1) AML (acute myeloblastic leukemia) (2) Anemia (3) Bone marrow disorder (4) Cerebral palsy (5) Chronic respiratory failure with hypoxia (6) Chronic tetraplegia (7) CKD (chronic kidney disease) stage 3, GFR 30-59 ml/min (8) DMII (diabetes mellitus, type 2) (9) Fever (10) GERD (gastroesophageal reflux disease) (11) Hypothyroidism (12) Sepsis (13) Symptomatic anemia (14) Syncope (15) UTI (urinary tract infection) Family History Hypertension Social History Smoking Status: Former Smoker Drug Use: none Marital Status: Housing Status: longterm Occupation Status: disabled Allergies Coded Allergies: Amoxicillin (Verified Allergy, Intermediate, RASH HEAD TO TOE, 12/28/17) Head to Toe Rash Clavulanic Acid (Verified Allergy, Intermediate, RASH HEAD TO TOE, 12/28/17 ) Head to Toe Rash Vancomycin (Verified Allergy, Intermediate, RASH, 12/28/17) Cefuroxime (Verified Allergy, Unknown, UNKNOWN, 12/28/17) Current Inpatient Medications Current Inpatient Medications Medications (Trade) Dose Ordered Sig/Lucille Route Start Time Stop Time Status Last Admin Dose Admin Gabapentin (Neurontin Cap) 200 mg TID PO 01/20/18 09:00 02/19/18 08:59 01/20/18 15:16 200 MG Insulin Glargine (Lantus Solostar Pen) 10 units DAILY SQ 01/21/18 09:00 02/20/18 08:59 Levothyroxine Sodium (Synthroid Tab) 50 mcg DAILYBB PO 01/20/18 06:00 02/19/18 05:59 01/20/18 05:38 50 MCG Oxycodone HCl (Roxicodone Immediate Rel Tab) 5 mg QID PRN PO 01/20/18 01:00 02/03/18 00:59 Ranitidine HCl (zANTac TAB) 150 mg BID PO 01/20/18 09:00 02/19/18 08:59 01/20/18 08:10 150 MG Lansoprazole (Prevacid Solutab) 30 mg DAILY PO 01/20/18 09:00 02/19/18 08:59 01/20/18 08:10 30 MG Polyethylene (Miralax Powder Packet) 17 gm DAILY PO 01/20/18 09:00 02/19/18 08:59 Prochlorperazine Edisylate 5 mg/ Syringe 5 ml @ 5 mls/min Q6H PRN IV 01/20/18 01:00 02/19/18 00:59 Hydromorphone HCl (Dilaudid Inj) 0.25 mg Q3H PRN IV 01/20/18 01:00 02/03/18 00:59 Imipenem/ Cilastatin Sodium (Consult) 1 ea UD PRN N/A 01/20/18 09:00 02/19/18 08:59 Albuterol/ Ipratropium (Duoneb) 3 ml Q2H PRN INH 01/20/18 01:00 02/19/18 00:59 Insulin Aspart (novoLOG ASPART) SLIDING SCALE If C... ACHS SC 01/20/18 07:00 02/19/18 06:59 Glucose (Glucose 40% Gel) 15-30 GRAMS 15 GRAMS... UD PRN PO 01/20/18 01:00 02/19/18 00:59 Glucose (Glucose Chew Tab) 4-8 Tablets 4 Tabl... UD PRN PO 01/20/18 01:00 02/19/18 00:59 Dextrose (Dextrose 50% 50ML Syringe) 25-50ML 25ML FOR ... UD PRN IV 01/20/18 01:00 02/19/18 00:59 Glucagon (Glucagon Inj) 1 mg UD PRN SQ 01/20/18 01:00 02/19/18 00:59 Carbohydrates (Carbohydrates For Hypoglycemia) 15-30 GRAMS 15 grams if BSG 54-69... UD PRN PO 01/20/18 01:00 02/19/18 00:59 Enoxaparin Sodium (Lovenox Inj) 30 mg Q24H SC 01/20/18 08:00 02/19/18 07:59 01/20/18 08:11 30 MG Acetaminophen (Tylenol Tab) 650 mg Q4H PRN PO 01/20/18 01:00 02/19/18 00:59 Nitroglycerin (Nitrostat Tab) 0.4 mg UD PRN SL 01/20/18 01:00 02/19/18 00:59 Linezolid (Consult) 1 ea UD PRN N/A 01/20/18 04:15 02/19/18 04:14 Aspirin (Ecotrin Tab) 81 mg DAILY PO 01/20/18 09:00 02/19/18 08:59 01/20/18 08:18 81 MG Sodium Chloride 1,000 ml @ 60 mls/hr [id number] ONCE IV 01/20/18 06:15 01/20/18 22:54 01/20/18 09:55 60 MLS/HR Imipenem/ Cilastatin Sodium 200 mg/Dextrose 108 ml @ 108 mls/hr Q6H IV 01/20/18 10:00 01/27/18 09:59 01/20/18 11:30 108 MLS/HR Linezolid 600 mg/ Prmx 300 ml @ 200 mls/hr Q12H IV 01/20/18 10:00 01/27/18 09:59 01/20/18 11:31 200 MLS/HR Review of Systems Constitutional: + fever, + chills, + sweats Eyes: No problem reported ENT: No problem reported Respiratory: + cough, No hemoptysis Cardiovascular: No problem reported Abdomen: No problem reported Musculoskeletal: No problem reported Genitourinary - Male: No problem reported Neurologic: + weakness Psychiatric: No problem reported Endocrine: No problem reported Hematologic / Lymphatic: No problem reported Integumentary: No problem reported Allergic / Immunologic: No problem reported Physical Exam Date Time Temp Pulse Resp B/P (MAP) Pulse Ox O2 Delivery O2 Flow Rate FiO2 01/20/18 11:59 36.9 75 18 155/91 (112) 99 Nasal Cannula 01/20/18 08:00 95 Nasal Cannula 1.0 01/20/18 07:44 36.8 67 18 126/82 (97) 98 Nasal Cannula 2.0 01/20/18 06:45 69 18 128/76 96 1.0 01/20/18 05:45 71 18 131/79 98 1.0 01/20/18 05:15 37.0 72 18 121/73 97 2.0 01/20/18 04:45 37.0 76 20 122/72 97 3.0 01/20/18 04:35 36.7 75 20 122/73 98 3.0 01/20/18 04:00 95 Nasal Cannula 2.0 01/20/18 03:05 36.7 78 20 111/70 95 2.0 01/20/18 02:15 36.8 76 119/66 100 Nasal Cannula 2.0 01/20/18 02:11 36.8 76 20 119/66 100 3.0 01/20/18 01:30 36.9 73 16 101/62 96 3.0 01/20/18 01:20 93 22 95/55 95 01/20/18 01:14 36.9 74 16 94/63 96 3.0 01/20/18 00:17 78 15 95/55 97 Nasal Cannula 3.0 01/19/18 23:34 91/55 94 Nasal Cannula 3.0 01/19/18 23:01 71 20 84/53 96 Nasal Cannula 3.0 01/19/18 23:00 96 Nasal Cannula 3.0 01/19/18 21:53 74 01/19/18 21:51 37.6 75 20 76/40 96 Nasal Cannula 2.0 General Appearance: WD/WN, no apparent distress, + pertinent finding ( Chronically ill-appearing) Head: normocephalic, atraumatic Eyes: normal inspection, EOMI, sclerae normal ENT: normal ENT inspection, hearing grossly normal, pharynx normal Neck: supple, no adenopathy, thyroid normal, trachea midline Respiratory/Chest: chest non-tender, no respiratory distress, no accessory muscle use, + rales (Left base) Cardiovascular: regular rate, rhythm, no gallop, no murmur Abdomen/GI: normal bowel sounds, non tender, soft, no organomegaly Back: normal inspection, no CVA tenderness Extremities/Musculoskelatal: no calf tenderness, normal capillary refill, non- tender Neurologic/Psych: alert, oriented x 3 Skin: normal color, warm/dry, no rash Lymphatic: no adenopathy Laboratory Results Date/Time Source Procedure Growth Status 01/19/18 22:17 Blood Blood Culture Pending Received 01/19/18 22:01 Blood Blood Culture Pending Received 01/20/18 09:50 Nasal MRSA DNA Surveillance Screen - Final Specimen Negative for MRSA by DNA Probe Complete 01/19/18 22:45 Urine , Clean Catch Urine Culture Pending Received Last 24 Hours Test 01/19/18 22:17 01/19/18 22:36 01/19/18 22:45 01/19/18 23:26 White Blood Count 5.98 K/uL Red Blood Count 1.90 M/uL Hemoglobin 5.4 g/dL Hematocrit 16.8 % Mean Corpuscular Volume 88.4 fL Mean Corpuscular Hemoglobin 28.4 pg Mean Corpuscular Hemoglobin Concent 32.1 g/dl Platelet Count 156 K/uL Mean Platelet Volume 11.3 fL RDW Standard Deviation 49.2 fL RDW Coefficient of Variation 17.1 % Nucleated RBC Absolute Count (auto) 0.03 K/uL Neutrophils % (Manual) 1.8 % Lymphocytes % (Manual) 41.0 % Monocytes % (Manual) 39.3 % Eosinophils % (Manual) 2.7 % Basophils % (Manual) 1.8 % Myelocytes % 1.8 % Blast Cells % 11.6 % Nucleated Red Blood Cells % 0.5 % Neutrophils # (Manual) 0.11 K/uL Total Absolute Neutrophils 0.11 K/uL Lymphocytes # (Manual) 2.45 K/uL Total Absolute Lymphocytes 2.45 K/uL Monocytes # (Manual) 2.35 K/uL Eosinophils # (Manual) 0.16 K/uL Basophils # (Manual) 0.11 K/uL Myelocytes # 0.11 K/uL Blast Cells # 0.69 K/uL Large Platelets 1+ Basophilic Stippling 1+ Anisocytosis PRESENT Rouleau 1+ Prothrombin Time 13.6 SECONDS Prothromb Time International Ratio 1.3 Activated Partial Thromboplast Time 37.8 SECONDS Partial Thromboplastin Ratio 1.5 Sodium Level 130 mmol/L Potassium Level 4.9 mmol/L Chloride Level 97 mmol/L Carbon Dioxide Level 24 mmol/L Anion Gap 8.0 mmol/L 17.0 mmol/L Blood Urea Nitrogen 44 mg/dl Creatinine 2.99 mg/dl Est Creatinine Clear Calc Drug Dose 20.2 ml/min Estimated GFR () 22.6 Estimated GFR (Non- 19.5 BUN/Creatinine Ratio 14.8 Random Glucose 120 mg/dl Osmolality 290 mOsm/kg Calcium Level 7.4 mg/dl Magnesium Level 2.3 mg/dl Total Bilirubin 0.1 mg/dl Aspartate Amino Transf (AST/SGOT) 22 U/L Alanine Aminotransferase (ALT/SGPT) 20 U/L Alkaline Phosphatase 57 U/L Troponin I < 0.015 ng/ml Total Protein 9.2 gm/dl Albumin 1.9 gm/dl Globulin 7.3 gm/dl Albumin/Globulin Ratio 0.3 Procalcitonin 0.67 ng/ml Thyroid Stimulating Hormone (TSH) 7.270 uIu/ml Free Thyroxine 1.08 ng/dl Bedside Hemoglobin 5.4 g/dl Bedside Hematocrit 16 % Bedside Sodium 131 mEq/L Bedside Potassium 5.1 mEq/L Bedside Chloride 97 mEq/L Bedside Total CO2 24 mEq/l Bedside Blood Urea Nitrogen 47 mg/dl Bedside Creatinine 3.0 mg/dl Bedside Glucose (other) 124 mg/dl Bedside Ionized Calcium (Olga Lidia) 1.03 mmol/l Urine Color YELLOW Urine Appearance CLOUDY Urine pH 6.5 Urine Specific [employer] 1.017 Urine Protein 1+ Urine Glucose (UA) NEG Urine Ketones NEG Urine Occult Blood 2+ Urine Nitrite NEG Urine Bilirubin NEG Urine Urobilinogen NEG Urine Leukocyte Esterase TRACE Urine WBC (Auto) 5-10 /hpf Urine RBC (Auto) 10-30 /hpf Urine Hyaline Casts (Auto) 1-5 /lpf Urine Epithelial Cells (Auto) >30 /lpf Urine Bacteria (Auto) NEG Bedside Lactic Acid Venous 1.64 mmol/L Test 01/19/18 23:52 01/20/18 00:55 01/20/18 02:16 01/20/18 07:31 Lactic Acid Level 1.5 mmol/L Arterial Blood pH 7.32 Arterial Blood Partial Pressure CO2 43 mmHg Arterial Blood Partial Pressure O2 84 mm/Hg Arterial Blood HCO3 21 mmol/L Arterial Blood Oxygen Saturation 90.8 % Arterial Blood Base Excess -4.4 mEq/L Arterial Blood Gas Delivery 4 L Rubén Test POS Bedside Glucose 124 mg/dl White Blood Count 2.35 K/uL Red Blood Count 2.81 M/uL Hemoglobin 8.2 g/dL Hematocrit 23.9 % Mean Corpuscular Volume 85.1 fL Mean Corpuscular Hemoglobin 29.2 pg Mean Corpuscular Hemoglobin Concent 34.3 g/dl Platelet Count 144 K/uL Mean Platelet Volume 11.6 fL RDW Standard Deviation 47.4 fL RDW Coefficient of Variation 16.3 % Neutrophils % (Manual) 7.9 % Lymphocytes % (Manual) 43.0 % Monocytes % (Manual) 19.3 % Eosinophils % (Manual) 2.6 % Basophils % (Manual) 0.9 % Myelocytes % 2.6 % Blast Cells % 23.7 % Neutrophils # (Manual) 0.19 K/uL Total Absolute Neutrophils 0.19 K/uL Lymphocytes # (Manual) 1.01 K/uL Total Absolute Lymphocytes 1.01 K/uL Monocytes # (Manual) 0.45 K/uL Eosinophils # (Manual) 0.06 K/uL Basophils # (Manual) 0.02 K/uL Myelocytes # 0.06 K/uL Blast Cells # 0.56 K/uL Large Platelets 1+ Basophilic Stippling OCCASIONAL Anisocytosis PRESENT Rouleau 1+ Sodium Level 133 mmol/L Potassium Level 5.0 mmol/L Chloride Level 101 mmol/L Carbon Dioxide Level 23 mmol/L Anion Gap 9.0 mmol/L Blood Urea Nitrogen 39 mg/dl Creatinine 2.53 mg/dl Est Creatinine Clear Calc Drug Dose 23.8 ml/min Estimated GFR () 27.7 Estimated GFR (Non- 23.9 BUN/Creatinine Ratio 15.5 Random Glucose 151 mg/dl Calcium Level 7.8 mg/dl Test 01/20/18 07:32 01/20/18 11:36 01/20/18 12:17 Bedside Glucose 161 mg/dl 146 mg/dl Hemoglobin 8.7 g/dL Hematocrit 25.8 % HISTORY: Sepsis COMPARISON: Chest 08/09/2017. FINDINGS: No pneumothorax. No pleural effusions. The heart remains enlarged. Interval development of a left basilar airspace opacity. No evidence for pulmonary edema. IMPRESSION: There is a new left lower lobe airspace opacity. This likely represents a pneumonia. One month chest x-ray follow-up is recommended to ensure resolution. Electronically signed by: Haseeb Monteiro M.D. 01/19/2018 11:09 PM Dictated Date/Time: 01/19/2018 11:08 PM The status of this report is Signed. Draft = Not yet reviewed or approved by Radiologist. Signed = Review Patient Name: DELMY DAO Unit Number: [id number] Dictated: 01/20/18827 Transcribed: 01/20/18827 [employer] Printed Date/Time: [~ rep prt dt]/[~ rep prt tm] [~ rep ct labl] - [~ rep ct ivnm] [facility] [place] [address] Dictated: 01/20/18827 Transcribed: 01/20/18827 [employer] Printed Date/Time: [~ rep prt dt]/[~ rep prt tm] [~ rep ct labl] - [~ rep ct ivnm] [~ rep ct add3]] ABDOMEN AND PELVIS CT WITHOUT CONTRAST CT DOSE: 973.28 mGy.cm HISTORY: Weakness. back pain TECHNIQUE: Multiaxial CT images of the abdomen and pelvis were performed without contrast. A dose lowering technique was utilized adhering to the principles of ALARA. COMPARISON STUDY: Abdomen and pelvis CT 03/26/2017. FINDINGS: Bibasilar patchy airspace opacities with reticulonodular interstitial thickening at the lung bases. This likely represents a pneumonia. Consolidation seen within the right middle lobe. Irregular density within the lingula is also likely due to the pneumonia. No pneumoperitoneum. No pneumatosis. No suspicious lytic or blastic osseous lesions. Multiple small gallstones are again noted. No hepatic or splenic masses. Normal adrenal glands and pancreas. Left-sided nephrolithiasis. No hydronephrosis. Bilateral cortical renal scarring persists. No change in the mild right perinephric edema. There is trace pericholecystic edema. The gallbladder is mildly distended. Normal caliber common bile duct. The bladder is distended. Mild inflammatory change surrounding the prostate gland, unchanged. Moderate stool within the rectum. Suboptimal evaluation for bowel pathology due to the lack of intravenous and oral contrast. However, there is no definite bowel wall thickening or obstruction. Question of a punctate stone versus adjacent pancreatic calcification near the distal common bile duct. This is best seen on image 201. Mild urothelial thickening within the left renal pelvis, unchanged. Left perinephric edema has slightly progressed. IMPRESSION: 1. Progressive bibasilar airspace opacities. This likely represents a pneumonia. 2. Cholelithiasis. The gallbladder is mildly distended and there is trace pericholecystic inflammatory change/edema. There is a punctate calcification either within or adjacent to the distal common bile duct. However, the common bile duct is normal in caliber. Recommend correlation with LFTs to exclude the possibility of a distal common bile duct stone and developing acute cholecystitis. This finding was called/faxed to the emergency Department following dictation. 3. Left-sided nephrolithiasis. No ureteral stones. No hydronephrosis. 4. Slight progression of the left perinephric edema. This could be chronic or due to a superimposed infectious process. Recommend correlation with urinalysis. Electronically signed by: Haseeb Monteiro M.D. 01/20/2018 8:36 AM Dictated Date/Time: 01/20/2018 8:28 AM The status of this report is Signed. Draft = Not yet reviewed or approved by Radiologist. Signed = Reviewed and approved by Radiologist. <AttendingPhy>Norman Tran M.D.</AttendingPhy> <FamilyPhy>Geo Varela M.D.</FamilyPhy> <PrimaryPhy>Geo Varela M.D.</PrimaryPhy> <UnitNumber> [id number]</UnitNumber> <VisitNumber>[id number]</VisitNumber> <PatientName> FELIBERTO,DELMY F</PatientName> <DateOfBirth>1940</DateOfBirth> <Location> [facility]</Location> <ServiceDate>01/19/18</ServiceDate> <MNE>ESINDI</MNE> < OrderingPhy>Ortega Bolivar M.D.</OrderingPhy> <OrderingPhyMNE>f rep ord dr laboy </OrderingPhyMNE> <DictatingPhyMNE>f rep dict dr laboy</DictatingPhyMNE> < CCListMNE>f rep ct mne</CCListMNE> <AdmittingPhyMNE>f pt admit dr laboy</ AdmittingPhyMNE> <AttendingPhyMNE>f pt attend dr laboy</AttendingPhyMNE> <ConsultingPhyMNE>f pt consult dr laboy</ConsultingPhyMNE> <FamilyPhyMNE>f pt fam dr laboy</FamilyPhyMNE> <OtherPhyMNE>f pt other dr laboy</OtherPhyMNE> < PrimaryPhyMNE>f pt prim care dr laboy</PrimaryPhyMNE> <ReferringPhyMNE>f pt referring dr laboy</ReferringPhyMNE> Assessment & Plan 77-year-old male with AML now with sepsis with new lower lobe pneumonia, possible aspiration, likely healthcare acquired, as well as a possibility developing cholecystitis. Given negative MRSA screen, MRSA associated pneumonia unlikely. Patient should be adequately covered by imipenem for both possibilities, will await final culture results and adjust antibiotics if necessary. Will follow.
[2018-01-20 19:10] LABS: HEMOGLOBIN 8.6 g/dL (14.0-18.0)
--- NOTE | 2018-01-20 21:15 | Progress Note ---
Medicine Progress Note Date & Time of Visit: Jan 20, 2018 at ~ 11:30 . Subjective Admitted during the night with pneumonia, sepsis, anemia. Feels better. Still coughing. Hemodynamics improved. . Objective Last 8 Hrs Date Time Temp Pulse Resp B/P (MAP) Pulse Ox O2 Delivery O2 Flow Rate FiO2 01/20/18 20:22 Room Air 01/20/18 19:34 36.9 80 18 154/83 (106) 92 01/20/18 16:06 36.6 74 18 164/90 (114) 96 Physical Exam: General- lying in bed, appears to be chronically-ill, no acute distress Lungs- clear to auscultation; no respiratory distress Cardiovascular- RRR; no gallop appreciated; no JVD; trace pretibial edema Abdomen- + bowel sounds, soft, nontender - Puentes cath Extremities- no cyanosis; no calf tenderness Neuro- alert, oriented; mild chronic dysarthria; chronic RUE weakness Skin- warm & dry . Laboratory Results: Last 24 Hours Test 01/19/18 22:17 01/19/18 22:36 01/19/18 22:45 01/19/18 23:26 White Blood Count 5.98 K/uL Red Blood Count 1.90 M/uL Hemoglobin 5.4 g/dL Hematocrit 16.8 % Mean Corpuscular Volume 88.4 fL Mean Corpuscular Hemoglobin 28.4 pg Mean Corpuscular Hemoglobin Concent 32.1 g/dl Platelet Count 156 K/uL Mean Platelet Volume 11.3 fL RDW Standard Deviation 49.2 fL RDW Coefficient of Variation 17.1 % Nucleated RBC Absolute Count (auto) 0.03 K/uL Neutrophils % (Manual) 1.8 % Lymphocytes % (Manual) 41.0 % Monocytes % (Manual) 39.3 % Eosinophils % (Manual) 2.7 % Basophils % (Manual) 1.8 % Myelocytes % 1.8 % Blast Cells % 11.6 % Nucleated Red Blood Cells % 0.5 % Neutrophils # (Manual) 0.11 K/uL Total Absolute Neutrophils 0.11 K/uL Lymphocytes # (Manual) 2.45 K/uL Total Absolute Lymphocytes 2.45 K/uL Monocytes # (Manual) 2.35 K/uL Eosinophils # (Manual) 0.16 K/uL Basophils # (Manual) 0.11 K/uL Myelocytes # 0.11 K/uL Blast Cells # 0.69 K/uL Large Platelets 1+ Basophilic Stippling 1+ Anisocytosis PRESENT Rouleau 1+ Prothrombin Time 13.6 SECONDS Prothromb Time International Ratio 1.3 Activated Partial Thromboplast Time 37.8 SECONDS Partial Thromboplastin Ratio 1.5 Sodium Level 130 mmol/L Potassium Level 4.9 mmol/L Chloride Level 97 mmol/L Carbon Dioxide Level 24 mmol/L Anion Gap 8.0 mmol/L 17.0 mmol/L Blood Urea Nitrogen 44 mg/dl Creatinine 2.99 mg/dl Est Creatinine Clear Calc Drug Dose 20.2 ml/min Estimated GFR () 22.6 Estimated GFR (Non- 19.5 BUN/Creatinine Ratio 14.8 Random Glucose 120 mg/dl Osmolality 290 mOsm/kg Calcium Level 7.4 mg/dl Magnesium Level 2.3 mg/dl Total Bilirubin 0.1 mg/dl Aspartate Amino Transf (AST/SGOT) 22 U/L Alanine Aminotransferase (ALT/SGPT) 20 U/L Alkaline Phosphatase 57 U/L Troponin I < 0.015 ng/ml Total Protein 9.2 gm/dl Albumin 1.9 gm/dl Globulin 7.3 gm/dl Albumin/Globulin Ratio 0.3 Procalcitonin 0.67 ng/ml Thyroid Stimulating Hormone (TSH) 7.270 uIu/ml Free Thyroxine 1.08 ng/dl Bedside Hemoglobin 5.4 g/dl Bedside Hematocrit 16 % Bedside Sodium 131 mEq/L Bedside Potassium 5.1 mEq/L Bedside Chloride 97 mEq/L Bedside Total CO2 24 mEq/l Bedside Blood Urea Nitrogen 47 mg/dl Bedside Creatinine 3.0 mg/dl Bedside Glucose (other) 124 mg/dl Bedside Ionized Calcium (Olga Lidia) 1.03 mmol/l Urine Color YELLOW Urine Appearance CLOUDY Urine pH 6.5 Urine Specific [place] 1.017 Urine Protein 1+ Urine Glucose (UA) NEG Urine Ketones NEG Urine Occult Blood 2+ Urine Nitrite NEG Urine Bilirubin NEG Urine Urobilinogen NEG Urine Leukocyte Esterase TRACE Urine WBC (Auto) 5-10 /hpf Urine RBC (Auto) 10-30 /hpf Urine Hyaline Casts (Auto) 1-5 /lpf Urine Epithelial Cells (Auto) >30 /lpf Urine Bacteria (Auto) NEG Bedside Lactic Acid Venous 1.64 mmol/L Test 01/19/18 23:52 01/20/18 00:55 01/20/18 02:16 01/20/18 07:31 Lactic Acid Level 1.5 mmol/L Arterial Blood pH 7.32 Arterial Blood Partial Pressure CO2 43 mmHg Arterial Blood Partial Pressure O2 84 mm/Hg Arterial Blood HCO3 21 mmol/L Arterial Blood Oxygen Saturation 90.8 % Arterial Blood Base Excess -4.4 mEq/L Arterial Blood Gas Delivery 4 L Rubén Test POS Bedside Glucose 124 mg/dl White Blood Count 2.35 K/uL Red Blood Count 2.81 M/uL Hemoglobin 8.2 g/dL Hematocrit 23.9 % Mean Corpuscular Volume 85.1 fL Mean Corpuscular Hemoglobin 29.2 pg Mean Corpuscular Hemoglobin Concent 34.3 g/dl Platelet Count 144 K/uL Mean Platelet Volume 11.6 fL RDW Standard Deviation 47.4 fL RDW Coefficient of Variation 16.3 % Neutrophils % (Manual) 7.9 % Lymphocytes % (Manual) 43.0 % Monocytes % (Manual) 19.3 % Eosinophils % (Manual) 2.6 % Basophils % (Manual) 0.9 % Myelocytes % 2.6 % Blast Cells % 23.7 % Neutrophils # (Manual) 0.19 K/uL Total Absolute Neutrophils 0.19 K/uL Lymphocytes # (Manual) 1.01 K/uL Total Absolute Lymphocytes 1.01 K/uL Monocytes # (Manual) 0.45 K/uL Eosinophils # (Manual) 0.06 K/uL Basophils # (Manual) 0.02 K/uL Myelocytes # 0.06 K/uL Blast Cells # 0.56 K/uL Large Platelets 1+ Basophilic Stippling OCCASIONAL Anisocytosis PRESENT Rouleau 1+ Sodium Level 133 mmol/L Potassium Level 5.0 mmol/L Chloride Level 101 mmol/L Carbon Dioxide Level 23 mmol/L Anion Gap 9.0 mmol/L Blood Urea Nitrogen 39 mg/dl Creatinine 2.53 mg/dl Est Creatinine Clear Calc Drug Dose 23.8 ml/min Estimated GFR () 27.7 Estimated GFR (Non- 23.9 BUN/Creatinine Ratio 15.5 Random Glucose 151 mg/dl Calcium Level 7.8 mg/dl Test 01/20/18 07:32 01/20/18 11:36 01/20/18 12:17 01/20/18 16:34 Bedside Glucose 161 mg/dl 146 mg/dl 122 mg/dl Hemoglobin 8.7 g/dL Hematocrit 25.8 % Test 01/20/18 18:48 01/20/18 20:08 Hemoglobin 8.6 g/dL Hematocrit 25.0 % Bedside Glucose 111 mg/dl Date/Time Source Procedure Growth Status 01/19/18 22:17 Blood Blood Culture Pending Received 01/19/18 22:01 Blood Blood Culture Pending Received 01/20/18 09:50 Nasal MRSA DNA Surveillance Screen - Final Specimen Negative for MRSA by DNA Probe Complete 01/19/18 22:45 Urine , Clean Catch Urine Culture Pending Received Assessment & Plan PNEUMONIA / PROBABLE SEPSIS Presented with cough and hypotension. Chest x-ray showed LLL infiltrate = HCAP. Did not meet usual criteria for sepsis per current CMS definition, but had low grade temp and hypotension associated with pneumonia. Serum lactate in ED 1.64. Hypotension improved with IV fluid resuscitation. Blood cultures obtained. Received broad-spectrum antibiotic coverage initially with levofloxacin, aztreonam, linezolid. HYPOTENSION Probably due to sepsis. Improved. ACUTE KIDNEY INJURY CKD with baseline creatinine = ~ 1.8. Creatinine at time of admission = 2.99. Probable JULITA secondary to sepsis. Follow. ANEMIA Hgb at time of admission = 5.4. 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 Received 2 units pRBC's. Hgb this morning = 8.2. RESUSCITATION STATUS DNR DISPOSITION Expected return to [facility] under care of Dr. Varela. . Current Inpatient Medications: Current Inpatient Medications Medications (Trade) Dose Ordered Sig/Lucille Route Start Time Stop Time Status Last Admin Dose Admin Gabapentin (Neurontin Cap) 200 mg TID PO 01/20/18 09:00 02/19/18 08:59 01/20/18 15:16 200 MG Insulin Glargine (Lantus Solostar Pen) 10 units DAILY SQ 01/21/18 09:00 02/20/18 08:59 Levothyroxine Sodium (Synthroid Tab) 50 mcg DAILYBB PO 01/20/18 06:00 02/19/18 05:59 01/20/18 05:38 50 MCG Oxycodone HCl (Roxicodone Immediate Rel Tab) 5 mg QID PRN PO 01/20/18 01:00 02/03/18 00:59 Ranitidine HCl (zANTac TAB) 150 mg BID PO 01/20/18 09:00 02/19/18 08:59 01/20/18 08:10 150 MG Lansoprazole (Prevacid Solutab) 30 mg DAILY PO 01/20/18 09:00 02/19/18 08:59 01/20/18 08:10 30 MG Polyethylene (Miralax Powder Packet) 17 gm DAILY PO 01/20/18 09:00 02/19/18 08:59 Prochlorperazine Edisylate 5 mg/ Syringe 5 ml @ 5 mls/min Q6H PRN IV 01/20/18 01:00 02/19/18 00:59 Hydromorphone HCl (Dilaudid Inj) 0.25 mg Q3H PRN IV 01/20/18 01:00 02/03/18 00:59 Imipenem/ Cilastatin Sodium (Consult) 1 ea UD PRN N/A 01/20/18 09:00 02/19/18 08:59 Albuterol/ Ipratropium (Duoneb) 3 ml Q2H PRN INH 01/20/18 01:00 02/19/18 00:59 Insulin Aspart (novoLOG ASPART) SLIDING SCALE If C... ACHS SC 01/20/18 07:00 02/19/18 06:59 Glucose (Glucose 40% Gel) 15-30 GRAMS 15 GRAMS... UD PRN PO 01/20/18 01:00 02/19/18 00:59 Glucose (Glucose Chew Tab) 4-8 Tablets 4 Tabl... UD PRN PO 01/20/18 01:00 02/19/18 00:59 Dextrose (Dextrose 50% 50ML Syringe) 25-50ML 25ML FOR ... UD PRN IV 01/20/18 01:00 02/19/18 00:59 Glucagon (Glucagon Inj) 1 mg UD PRN SQ 01/20/18 01:00 02/19/18 00:59 Carbohydrates (Carbohydrates For Hypoglycemia) 15-30 GRAMS 15 grams if BSG 54-69... UD PRN PO 01/20/18 01:00 02/19/18 00:59 Acetaminophen (Tylenol Tab) 650 mg Q4H PRN PO 01/20/18 01:00 02/19/18 00:59 Nitroglycerin (Nitrostat Tab) 0.4 mg UD PRN SL 01/20/18 01:00 02/19/18 00:59 Linezolid (Consult) 1 ea UD PRN N/A 01/20/18 04:15 02/19/18 04:14 Aspirin (Ecotrin Tab) 81 mg DAILY PO 01/20/18 09:00 02/19/18 08:59 01/20/18 08:18 81 MG Sodium Chloride 1,000 ml @ 60 mls/hr [id number] ONCE IV 01/20/18 06:15 01/20/18 22:54 01/20/18 09:55 60 MLS/HR Imipenem/ Cilastatin Sodium 200 mg/Dextrose 108 ml @ 108 mls/hr Q6H IV 01/20/18 10:00 01/27/18 09:59 01/20/18 15:38 108 MLS/HR Linezolid 600 mg/ Prmx 300 ml @ 200 mls/hr Q12H IV 01/20/18 10:00 01/27/18 09:59 01/20/18 11:31 200 MLS/HR Heparin Sodium (Porcine) (Heparin Sq 5000 Unit/0.5ml) 5,000 unit Q8H SQ 01/21/18 08:00 02/20/18 07:59
[2018-01-21 03:33] VITALS: BP 154/84; PULSE 79; TEMP 36.8; O2SAT 95
[2018-01-21] MEDS: IMIPENEM-CILASTATIN 200 MG in DEXTROSE 5% 100ML 100 ML IV SCH ×4 (05:47→21:36)
[2018-01-21] MEDS: LEVOTHYROXINE 50 MCG TAB PO SCH (05:47)
[2018-01-21 06:33] LABS: HEMATOCRIT 24.2 % (42-52); HEMOGLOBIN 8.1 g/dL (14.0-18.0); MEAN CELL VOLUME 84.3 fL (80-100); MEAN CORPUSCULAR HEMOGLOBIN 28.2 pg (25-34); MEAN CORPUSCULAR HGB CONC 33.5 g/dl (32-36); MEAN PLATELET VOLUME 10.9 fL (7.4-10.4); PLATELET COUNT 150 K/uL (130-400); RED CELL DISTRIBUTION WIDTH CV 16.5 % (11.5-14.5); RED CELL DISTRIBUTION WIDTH SD 47.2 fL (36.4-46.3); WHITE BLOOD COUNT 3.59 K/uL (4.8-10.8)
[2018-01-21 07:06] LABS: CALCIUM 7.8 mg/dl (8.5-10.1); CREATININE 1.86 mg/dl (0.60-1.40)
[2018-01-21 07:55] VITALS: BP 165/98; PULSE 95; TEMP 36.9; O2SAT 93
[2018-01-21] MEDS: INSULIN ASPART 100 UNITS/ML 3 ML PEN SC SCH ×4 (08:43→20:22)
[2018-01-21] MEDS: LINEZOLID 600MG / D5W IV SCH ×2 (08:55→21:36)
[2018-01-21] MEDS: LANSOPRAZOLE SOLUTAB 30 MG PO SCH (09:00)
[2018-01-21] MEDS: POLYETHYLENE (MIRALAX) 17 GM PACK PO SCH (09:00)
[2018-01-21] MEDS ORDERED: INSULIN GLARGINE SOLOSTAR 100 UNITS/ML 3 ML PEN SQ SCH (09:00)
[2018-01-21] MEDS: GABAPENTIN 100 MG CAP PO SCH ×3 (09:00→20:18)
[2018-01-21] MEDS: HEPARIN SOD 5000 UNIT/0.5 ML CARP SQ SCH ×3 (09:34→20:23)
[2018-01-21 11:55] VITALS: BP 171/92; PULSE 68; TEMP 36.7; O2SAT 96
[2018-01-21] MEDS: ASPIRIN 81 MG ECTAB PO SCH (12:51)
[2018-01-21] MEDS: RANITIDINE HCL 150 MG TAB PO SCH ×2 (12:51→20:19)
[2018-01-21 15:23] VITALS: BP 162/94; PULSE 74; TEMP 36.8; O2SAT 94
[2018-01-21 19:21] VITALS: BP 170/92; PULSE 75; TEMP 36.8; O2SAT 93
--- NOTE | 2018-01-21 19:39 | Progress Note ---
Medicine Progress Note Date & Time of Visit: Jan 21, 2018 at 10:20 . Subjective CC: Follow-up visit for pneumonia, anemia, and other problems. HPI: No fever. Persistent cough. No SOB. No chest pain. Had nausea and vomiting after eating breakfast. Has condom cath. ROS: as noted above in HPI . Objective Last 8 Hrs Date Time Temp Pulse Resp B/P (MAP) Pulse Ox O2 Delivery O2 Flow Rate FiO2 01/21/18 19:21 36.8 75 18 170/92 (118) 93 01/21/18 15:23 36.8 74 18 162/94 (116) 94 01/21/18 11:55 36.7 68 16 171/92 (118) 96 Room Air Physical Exam: General- lying in bed, appears to be chronically-ill, no acute distress Lungs- scattered rhonchi; no respiratory distress Cardiovascular- RRR; no gallop appreciated; no JVD; trace pretibial edema Abdomen- + bowel sounds, soft, nontender - Puentes cath Extremities- no cyanosis; no calf tenderness Neuro- alert, oriented; right facial palsy; mild chronic dysarthria; chronic RUE weakness Skin- warm & dry . Laboratory Results: Last 24 Hours Test 01/20/18 20:08 01/21/18 06:09 01/21/18 07:39 01/21/18 11:39 Bedside Glucose 111 mg/dl 106 mg/dl 135 mg/dl White Blood Count 3.59 K/uL Red Blood Count 2.87 M/uL Hemoglobin 8.1 g/dL Hematocrit 24.2 % Mean Corpuscular Volume 84.3 fL Mean Corpuscular Hemoglobin 28.2 pg Mean Corpuscular Hemoglobin Concent 33.5 g/dl Platelet Count 150 K/uL Mean Platelet Volume 10.9 fL RDW Standard Deviation 47.2 fL RDW Coefficient of Variation 16.5 % Neutrophils % (Manual) 1.7 % Lymphocytes % (Manual) 59.1 % Monocytes % (Manual) 27.0 % Blast Cells % 11.3 % Neutrophils # (Manual) 0.06 K/uL Total Absolute Neutrophils 0.06 K/uL Lymphocytes # (Manual) 2.12 K/uL Total Absolute Lymphocytes 2.12 K/uL Monocytes # (Manual) 0.97 K/uL Other Cells # 0.03 K/uL Blast Cells # 0.41 K/uL Other Cell Type 0.9 % Large Platelets 1+ Anisocytosis PRESENT Sodium Level 136 mmol/L Potassium Level 4.0 mmol/L Chloride Level 103 mmol/L Carbon Dioxide Level 24 mmol/L Anion Gap 9.0 mmol/L Blood Urea Nitrogen 31 mg/dl Creatinine 1.86 mg/dl Est Creatinine Clear Calc Drug Dose 29.8 ml/min Estimated GFR () 40.1 Estimated GFR (Non- 34.6 BUN/Creatinine Ratio 16.6 Random Glucose 110 mg/dl Calcium Level 7.8 mg/dl Test 01/21/18 16:09 Bedside Glucose 107 mg/dl Assessment & Plan PNEUMONIA / PROBABLE SEPSIS Presented with cough and hypotension. Chest x-ray showed LLL infiltrate = HCAP. Did not meet usual criteria for sepsis per current CMS definition, but had low grade temp and hypotension associated with pneumonia. Serum lactate in ED 1.64. Hypotension improved with IV fluid resuscitation. Blood cultures obtained. Received broad-spectrum antibiotic coverage initially with levofloxacin, aztreonam, linezolid. Now receiving imipenem / cilastatin and linezolid. ASPIRATION History of chronic aspiration, evaluated and discussed in past. Patient / family opted not to pursue PEG. Aspiration precautions, pureed diet, honey thickened liquids recommended. HYPOTENSION Probably due to sepsis. Improved. ACUTE KIDNEY INJURY CKD with baseline creatinine = ~ 1.8. Creatinine at time of admission was 2.99. Probable JULITA secondary to sepsis. Received IV fluids. Creatinine today = 1.86. Follow. ANEMIA Hgb at time of admission = 5.4. 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 Received 2 units pRBC's. Hgb this morning = 8.1. RESUSCITATION STATUS DNR DISPOSITION Expected return to [facility] under care of Dr. Varela. . Current Inpatient Medications: Current Inpatient Medications Medications (Trade) Dose Ordered Sig/Lucille Route Start Time Stop Time Status Last Admin Dose Admin Gabapentin (Neurontin Cap) 200 mg TID PO 01/20/18 09:00 02/19/18 08:59 01/21/18 12:53 200 MG Insulin Glargine (Lantus Solostar Pen) 10 units DAILY SQ 01/21/18 09:00 02/20/18 08:59 Future Hold Levothyroxine Sodium (Synthroid Tab) 50 mcg DAILYBB PO 01/20/18 06:00 02/19/18 05:59 01/21/18 05:47 50 MCG Oxycodone HCl (Roxicodone Immediate Rel Tab) 5 mg QID PRN PO 01/20/18 01:00 02/03/18 00:59 Ranitidine HCl (zANTac TAB) 150 mg BID PO 01/20/18 09:00 02/19/18 08:59 01/21/18 12:51 150 MG Lansoprazole (Prevacid Solutab) 30 mg DAILY PO 01/20/18 09:00 02/19/18 08:59 01/20/18 08:10 30 MG Polyethylene (Miralax Powder Packet) 17 gm DAILY PO 01/20/18 09:00 02/19/18 08:59 Prochlorperazine Edisylate 5 mg/ Syringe 5 ml @ 5 mls/min Q6H PRN IV 01/20/18 01:00 02/19/18 00:59 Hydromorphone HCl (Dilaudid Inj) 0.25 mg Q3H PRN IV 01/20/18 01:00 02/03/18 00:59 Imipenem/ Cilastatin Sodium (Consult) 1 ea UD PRN N/A 01/20/18 09:00 02/19/18 08:59 Albuterol/ Ipratropium (Duoneb) 3 ml Q2H PRN INH 01/20/18 01:00 02/19/18 00:59 Insulin Aspart (novoLOG ASPART) SLIDING SCALE If C... ACHS SC 01/20/18 07:00 02/19/18 06:59 Glucose (Glucose 40% Gel) 15-30 GRAMS 15 GRAMS... UD PRN PO 01/20/18 01:00 02/19/18 00:59 Glucose (Glucose Chew Tab) 4-8 Tablets 4 Tabl... UD PRN PO 01/20/18 01:00 02/19/18 00:59 Dextrose (Dextrose 50% 50ML Syringe) 25-50ML 25ML FOR ... UD PRN IV 01/20/18 01:00 02/19/18 00:59 Glucagon (Glucagon Inj) 1 mg UD PRN SQ 01/20/18 01:00 02/19/18 00:59 Carbohydrates (Carbohydrates For Hypoglycemia) 15-30 GRAMS 15 grams if BSG 54-69... UD PRN PO 01/20/18 01:00 02/19/18 00:59 Acetaminophen (Tylenol Tab) 650 mg Q4H PRN PO 01/20/18 01:00 02/19/18 00:59 Nitroglycerin (Nitrostat Tab) 0.4 mg UD PRN SL 01/20/18 01:00 02/19/18 00:59 Linezolid (Consult) 1 ea UD PRN N/A 01/20/18 04:15 02/19/18 04:14 Aspirin (Ecotrin Tab) 81 mg DAILY PO 01/20/18 09:00 02/19/18 08:59 01/21/18 12:51 81 MG Imipenem/ Cilastatin Sodium 200 mg/Dextrose 108 ml @ 108 mls/hr Q6H IV 01/20/18 10:00 01/27/18 09:59 01/21/18 16:29 108 MLS/HR Linezolid 600 mg/ Prmx 300 ml @ 200 mls/hr Q12H IV 01/20/18 10:00 01/27/18 09:59 01/21/18 08:55 200 MLS/HR Heparin Sodium (Porcine) (Heparin Sq 5000 Unit/0.5ml) 5,000 unit Q8H SQ 01/21/18 08:00 02/20/18 07:59 01/21/18 16:43 5,000 UNIT
[2018-01-21] MEDS: ACETAMINOPHEN 325 MG TAB PO PRN (20:19)
[2018-01-21] MEDS ORDERED: INSULIN GLARGINE SOLOSTAR 100 UNITS/ML 3 ML PEN SC ONE (20:30)
[2018-01-21 23:43] VITALS: BP 167/90; PULSE 80; TEMP 36.7; O2SAT 92
[2018-01-22] MEDS ORDERED: GUAIFENESIN/CODEINE 100MG/10MG 5ML UDC PO ONE (01:15)
[2018-01-22 03:33] VITALS: BP 166/95; PULSE 85; TEMP 36.7; O2SAT 93
[2018-01-22] MEDS: IMIPENEM-CILASTATIN 200 MG in DEXTROSE 5% 100ML 100 ML IV SCH ×4 (04:25→22:30)
[2018-01-22] MEDS ORDERED: DiphenhydrAMINE INJ 12.5 MG in SYRINGE 0 ML IV ONE (05:45)
[2018-01-22] MEDS ORDERED: DiphenhydrAMINE HCL 50 MG/ML VIAL IV ONE (05:45)
[2018-01-22] MEDS ORDERED: DiphenhydrAMINE HCL 50 MG/ML VIAL ONE (05:46)
[2018-01-22] MEDS: LEVOTHYROXINE 50 MCG TAB PO SCH (05:47)
[2018-01-22] MEDS: INSULIN ASPART 100 UNITS/ML 3 ML PEN SC SCH ×4 (07:00→21:00)
[2018-01-22 07:51] VITALS: BP 145/83; PULSE 104; TEMP 37; O2SAT 98
[2018-01-22] MEDS: HEPARIN SOD 5000 UNIT/0.5 ML CARP SQ SCH ×2 (08:01→15:42)
[2018-01-22] MEDS: GABAPENTIN 100 MG CAP PO SCH ×3 (08:03→21:01)
[2018-01-22] MEDS: ASPIRIN 81 MG ECTAB PO SCH (08:03)
[2018-01-22 08:04] LABS: HEMATOCRIT 25.2 % (42-52); HEMOGLOBIN 8.7 g/dL (14.0-18.0); MEAN CELL VOLUME 84.3 fL (80-100); MEAN CORPUSCULAR HEMOGLOBIN 29.1 pg (25-34); MEAN CORPUSCULAR HGB CONC 34.5 g/dl (32-36); MEAN PLATELET VOLUME 10.9 fL (7.4-10.4); PLATELET COUNT 151 K/uL (130-400); RED CELL DISTRIBUTION WIDTH CV 16.2 % (11.5-14.5); RED CELL DISTRIBUTION WIDTH SD 46.1 fL (36.4-46.3); WHITE BLOOD COUNT 4.16 K/uL (4.8-10.8)
[2018-01-22] MEDS: LANSOPRAZOLE SOLUTAB 30 MG PO SCH (08:04)
[2018-01-22] MEDS: RANITIDINE HCL 150 MG TAB PO SCH ×2 (08:05→21:01)
[2018-01-22] MEDS: POLYETHYLENE (MIRALAX) 17 GM PACK PO SCH (08:28)
[2018-01-22 08:41] LABS: CALCIUM 8.6 mg/dl (8.5-10.1); CREATININE 1.49 mg/dl (0.60-1.40); POTASSIUM 3.8 mmol/L (3.5-5.1); TOTAL PROTEIN 9.5 gm/dl (6.4-8.2)
[2018-01-22] MEDS: LINEZOLID 600MG / D5W IV SCH ×2 (10:53→22:14)
[2018-01-22 11:59] VITALS: BP 162/92; PULSE 79; TEMP 37.5; O2SAT 98
[2018-01-22 15:31] VITALS: BP 159/92; PULSE 86; TEMP 37.2; O2SAT 96
[2018-01-22 19:09] VITALS: BP 155/89; PULSE 107; TEMP 37.3; O2SAT 94
--- NOTE | 2018-01-22 20:50 | Progress Note ---
Medicine Progress Note Date & Time of Visit: Jan 22, 2018 at 14:40 . Subjective CC: Follow-up visit for pneumonia and other problems. HPI: Feels better. No fever. Cough improved. N/V improved. Anxious to get back to [facility]. ROS: General- no fever, no chills Resp- no cough; no shortness of breath Cardiac- no chest pain, no edema GI- no nausea, no vomiting, no diarrhea, no constipation - has condom cath; no dysuria, no difficulty voiding . Objective Last 8 Hrs Date Time Temp Pulse Resp B/P (MAP) Pulse Ox O2 Delivery O2 Flow Rate FiO2 01/22/18 19:09 37.3 107 18 155/89 (111) 94 Room Air 01/22/18 15:31 37.2 86 18 159/92 (114) 96 Nasal Cannula 2.0 Physical Exam: General- lying in bed, no acute distress Lungs- few scattered rhonchi; no respiratory distress Cardiovascular- RRR; no gallop appreciated; no JVD; trace pretibial edema Abdomen- + bowel sounds, soft, nontender - condom cath Extremities- no cyanosis; no calf tenderness Neuro- alert, oriented; right facial palsy; mild chronic dysarthria; chronic RUE weakness Skin- warm & dry . Laboratory Results: Last 24 Hours Test 01/22/18 07:02 01/22/18 07:19 01/22/18 11:27 01/22/18 16:27 White Blood Count 4.16 K/uL Red Blood Count 2.99 M/uL Hemoglobin 8.7 g/dL Hematocrit 25.2 % Mean Corpuscular Volume 84.3 fL Mean Corpuscular Hemoglobin 29.1 pg Mean Corpuscular Hemoglobin Concent 34.5 g/dl Platelet Count 151 K/uL Mean Platelet Volume 10.9 fL RDW Standard Deviation 46.1 fL RDW Coefficient of Variation 16.2 % Neutrophils % (Manual) 1.8 % Lymphocytes % (Manual) 52.1 % Monocytes % (Manual) 35.4 % Basophils % (Manual) 1.8 % Metamyelocytes % 0.9 % Blast Cells % 8.0 % Neutrophils # (Manual) 0.07 K/uL Total Absolute Neutrophils 0.07 K/uL Lymphocytes # (Manual) 2.17 K/uL Total Absolute Lymphocytes 2.17 K/uL Monocytes # (Manual) 1.47 K/uL Basophils # (Manual) 0.07 K/uL Metamyelocytes # 0.04 K/uL Blast Cells # 0.33 K/uL Giant Platelets 1+ Rouleau 1+ Sodium Level 135 mmol/L Potassium Level 3.8 mmol/L Chloride Level 101 mmol/L Carbon Dioxide Level 26 mmol/L Anion Gap 8.0 mmol/L Blood Urea Nitrogen 26 mg/dl Creatinine 1.49 mg/dl Est Creatinine Clear Calc Drug Dose 37.3 ml/min Estimated GFR () 52.5 Estimated GFR (Non- 45.3 BUN/Creatinine Ratio 17.3 Random Glucose 103 mg/dl Calcium Level 8.6 mg/dl Total Bilirubin 0.5 mg/dl Direct Bilirubin 0.1 mg/dl Aspartate Amino Transf (AST/SGOT) 25 U/L Alanine Aminotransferase (ALT/SGPT) 14 U/L Alkaline Phosphatase 55 U/L Total Protein 9.5 gm/dl Albumin 2.0 gm/dl Lipase 175 U/L Bedside Glucose 108 mg/dl 151 mg/dl 130 mg/dl Test 01/22/18 20:36 Bedside Glucose 114 mg/dl Assessment & Plan PNEUMONIA / PROBABLE SEPSIS Presented with cough and hypotension. Chest x-ray showed LLL infiltrate = HCAP. Also has UTI. Did not meet usual criteria for sepsis per current CMS definition, but had low grade temp and hypotension associated with pneumonia. Serum lactate in ED 1.64. Hypotension improved with IV fluid resuscitation. Blood cultures obtained and negative so far. Received broad-spectrum antibiotic coverage initially with levofloxacin, aztreonam, linezolid. Now receiving imipenem / cilastatin and linezolid. ASPIRATION History of chronic aspiration, evaluated and discussed in past. Patient / family opted not to pursue PEG. Aspiration precautions, pureed diet, honey thickened liquids recommended. UTI (present on admission) Admission UA had a few WBC's. Urine culture grew Enterococcus faecalis. Should be covered by linezolid. HYPOTENSION Probably due to sepsis. Improved. ACUTE KIDNEY INJURY CKD with baseline creatinine = ~ 1.8. Creatinine at time of admission was 2.99. Probable JULITA secondary to sepsis. Received IV fluids. Creatinine today = 1.49. Follow. ANEMIA Hgb at time of admission = 5.4. 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 Received 2 units pRBC's. Hgb this morning = 8.7. Transfuse as necessary to maintain Hgb > 7-8. RESUSCITATION STATUS / ADVANCED DIRECTIVES Discussed with patient who is oriented and his nephew who is a PA-C and helps with medical matters. Patient has transfusion-dependent AML, chronic aspiration, and other challenges. Not sure whether or not a POLST has been completed, but patient and his family have discussed matters with medical staff at [facility]. He would like to continue to receive blood transfusions for anemia unless the need becomes more frequent. He is not interested in a feeding tube and would like to eat food preferences even though their is a high risk for aspiration. Code status = DNR Care plan would transition to palliative care if his condition deteriorates significantly or if transfusion requirements become too frequent and burdensome. DISPOSITION Expected return to [facility] under care of Dr. Varela. . Current Inpatient Medications: Current Inpatient Medications Medications (Trade) Dose Ordered Sig/Lucille Route Start Time Stop Time Status Last Admin Dose Admin Gabapentin (Neurontin Cap) 200 mg TID PO 01/20/18 09:00 02/19/18 08:59 01/22/18 13:39 200 MG Insulin Glargine (Lantus Solostar Pen) 10 units DAILY SQ 01/21/18 09:00 02/20/18 08:59 Future Hold Levothyroxine Sodium (Synthroid Tab) 50 mcg DAILYBB PO 01/20/18 06:00 02/19/18 05:59 01/22/18 05:47 50 MCG Oxycodone HCl (Roxicodone Immediate Rel Tab) 5 mg QID PRN PO 01/20/18 01:00 02/03/18 00:59 Ranitidine HCl (zANTac TAB) 150 mg BID PO 01/20/18 09:00 02/19/18 08:59 01/22/18 08:05 150 MG Lansoprazole (Prevacid Solutab) 30 mg DAILY PO 01/20/18 09:00 02/19/18 08:59 01/22/18 08:04 30 MG Polyethylene (Miralax Powder Packet) 17 gm DAILY PO 01/20/18 09:00 02/19/18 08:59 Prochlorperazine Edisylate 5 mg/ Syringe 5 ml @ 5 mls/min Q6H PRN IV 01/20/18 01:00 02/19/18 00:59 Hydromorphone HCl (Dilaudid Inj) 0.25 mg Q3H PRN IV 01/20/18 01:00 02/03/18 00:59 Imipenem/ Cilastatin Sodium (Consult) 1 ea UD PRN N/A 01/20/18 09:00 02/19/18 08:59 Albuterol/ Ipratropium (Duoneb) 3 ml Q2H PRN INH 01/20/18 01:00 02/19/18 00:59 Insulin Aspart (novoLOG ASPART) SLIDING SCALE If C... ACHS SC 01/20/18 07:00 02/19/18 06:59 01/21/18 20:22 2 UNITS Glucose (Glucose 40% Gel) 15-30 GRAMS 15 GRAMS... UD PRN PO 01/20/18 01:00 02/19/18 00:59 Glucose (Glucose Chew Tab) 4-8 Tablets 4 Tabl... UD PRN PO 01/20/18 01:00 02/19/18 00:59 Dextrose (Dextrose 50% 50ML Syringe) 25-50ML 25ML FOR ... UD PRN IV 01/20/18 01:00 02/19/18 00:59 Glucagon (Glucagon Inj) 1 mg UD PRN SQ 01/20/18 01:00 02/19/18 00:59 Carbohydrates (Carbohydrates For Hypoglycemia) 15-30 GRAMS 15 grams if BSG 54-69... UD PRN PO 01/20/18 01:00 02/19/18 00:59 Acetaminophen (Tylenol Tab) 650 mg Q4H PRN PO 01/20/18 01:00 02/19/18 00:59 01/21/18 20:19 650 MG Nitroglycerin (Nitrostat Tab) 0.4 mg UD PRN SL 01/20/18 01:00 02/19/18 00:59 Linezolid (Consult) 1 ea UD PRN N/A 01/20/18 04:15 02/19/18 04:14 Aspirin (Ecotrin Tab) 81 mg DAILY PO 01/20/18 09:00 02/19/18 08:59 01/22/18 08:03 81 MG Imipenem/ Cilastatin Sodium 200 mg/Dextrose 108 ml @ 108 mls/hr Q6H IV 01/20/18 10:00 01/27/18 09:59 01/22/18 15:40 108 MLS/HR Linezolid 600 mg/ Prmx 300 ml @ 200 mls/hr Q12H IV 01/20/18 10:00 01/27/18 09:59 01/22/18 10:53 200 MLS/HR Heparin Sodium (Porcine) (Heparin Sq 5000 Unit/0.5ml) 5,000 unit Q8H SQ 01/21/18 08:00 02/20/18 07:59 01/22/18 15:42 5,000 UNIT
[2018-01-22] MEDS: ACETAMINOPHEN 325 MG TAB PO PRN ×2 (20:59→22:14)
--- NOTE | 2018-01-22 22:10 | Infectious Disease Progress Nt ---
Progress Note Date of Service Jan 22, 2018. Subjective Pt evaluation today including: conversation w/ patient, physical exam, chart review, lab review, review of studies, conversation w/ architectural sales consultant, review of inpatient medication list Complaining of nausea with breakfast. Remains afebrile. Blood cultures are negative, urine culture growing enterococcus faecalis. All Other Systems: Reviewed and Negative Medications Current Inpatient Medications Medications (Trade) Dose Ordered Sig/Lucille Route Start Time Stop Time Status Last Admin Dose Admin Gabapentin (Neurontin Cap) 200 mg TID PO 01/20/18 09:00 02/19/18 08:59 01/22/18 21:01 200 MG Insulin Glargine (Lantus Solostar Pen) 10 units DAILY SQ 01/21/18 09:00 02/20/18 08:59 Future Hold Levothyroxine Sodium (Synthroid Tab) 50 mcg DAILYBB PO 01/20/18 06:00 02/19/18 05:59 01/22/18 05:47 50 MCG Oxycodone HCl (Roxicodone Immediate Rel Tab) 5 mg QID PRN PO 01/20/18 01:00 02/03/18 00:59 Ranitidine HCl (zANTac TAB) 150 mg BID PO 01/20/18 09:00 02/19/18 08:59 01/22/18 21:01 150 MG Lansoprazole (Prevacid Solutab) 30 mg DAILY PO 01/20/18 09:00 02/19/18 08:59 01/22/18 08:04 30 MG Polyethylene (Miralax Powder Packet) 17 gm DAILY PO 01/20/18 09:00 02/19/18 08:59 Prochlorperazine Edisylate 5 mg/ Syringe 5 ml @ 5 mls/min Q6H PRN IV 01/20/18 01:00 02/19/18 00:59 Hydromorphone HCl (Dilaudid Inj) 0.25 mg Q3H PRN IV 01/20/18 01:00 02/03/18 00:59 Imipenem/ Cilastatin Sodium (Consult) 1 ea UD PRN N/A 01/20/18 09:00 02/19/18 08:59 Albuterol/ Ipratropium (Duoneb) 3 ml Q2H PRN INH 01/20/18 01:00 02/19/18 00:59 Insulin Aspart (novoLOG ASPART) SLIDING SCALE If C... ACHS SC 01/20/18 07:00 02/19/18 06:59 01/21/18 20:22 2 UNITS Glucose (Glucose 40% Gel) 15-30 GRAMS 15 GRAMS... UD PRN PO 01/20/18 01:00 02/19/18 00:59 Glucose (Glucose Chew Tab) 4-8 Tablets 4 Tabl... UD PRN PO 01/20/18 01:00 02/19/18 00:59 Dextrose (Dextrose 50% 50ML Syringe) 25-50ML 25ML FOR ... UD PRN IV 01/20/18 01:00 02/19/18 00:59 Glucagon (Glucagon Inj) 1 mg UD PRN SQ 01/20/18 01:00 02/19/18 00:59 Carbohydrates (Carbohydrates For Hypoglycemia) 15-30 GRAMS 15 grams if BSG 54-69... UD PRN PO 01/20/18 01:00 02/19/18 00:59 Acetaminophen (Tylenol Tab) 650 mg Q4H PRN PO 01/20/18 01:00 02/19/18 00:59 01/21/18 20:19 650 MG Nitroglycerin (Nitrostat Tab) 0.4 mg UD PRN SL 01/20/18 01:00 02/19/18 00:59 Linezolid (Consult) 1 ea UD PRN N/A 01/20/18 04:15 02/19/18 04:14 Aspirin (Ecotrin Tab) 81 mg DAILY PO 01/20/18 09:00 02/19/18 08:59 01/22/18 08:03 81 MG Imipenem/ Cilastatin Sodium 200 mg/Dextrose 108 ml @ 108 mls/hr Q6H IV 01/20/18 10:00 01/27/18 09:59 01/22/18 15:40 108 MLS/HR Linezolid 600 mg/ Prmx 300 ml @ 200 mls/hr Q12H IV 01/20/18 10:00 01/27/18 09:59 01/22/18 10:53 200 MLS/HR Heparin Sodium (Porcine) (Heparin Sq 5000 Unit/0.5ml) 5,000 unit Q8H SQ 01/21/18 08:00 02/20/18 07:59 01/22/18 15:42 5,000 UNIT Objective Vital Signs Date Time Temp Pulse Resp B/P (MAP) Pulse Ox O2 Delivery O2 Flow Rate FiO2 01/22/18 19:09 37.3 107 18 155/89 (111) 94 Room Air 01/22/18 15:31 37.2 86 18 159/92 (114) 96 Nasal Cannula 2.0 01/22/18 11:59 37.5 79 18 162/92 (115) 98 Nasal Cannula 2.0 01/22/18 08:00 Room Air 01/22/18 07:51 37.0 104 20 145/83 (103) 98 Room Air 01/22/18 03:33 36.7 85 16 166/95 (118) 93 Room Air 01/21/18 23:43 36.7 80 16 167/90 (115) 92 Room Air Physical Exam General Appearance: WD/WN, no apparent distress Eyes: normal inspection, EOMI, sclerae normal ENT: normal ENT inspection, pharynx normal Neck: supple, no adenopathy, thyroid normal, trachea midline Respiratory/Chest: chest non-tender, no respiratory distress, + rales Cardiovascular: regular rate, rhythm, no gallop, no murmur Abdomen: normal bowel sounds, non tender, soft, no organomegaly Extremities: non-tender, no calf tenderness Neurologic/Psychiatric: alert, + pertinent finding (Forgetful) Skin: normal color, no rash Lymphatic: no adenopathy Laboratory Results RUN DATE: 01/22/18 [facility] LAB PAGE 1 RUN TIME: 1017 Specimen Inquiry PATIENT: DELMY DAO LOC: Charles U # : [id number] AGE/SX: 77/M ROOM: [facility] REG : 01/20/[address]: Norman Tran M.D. : 1940 BED: 1 DIS : STATUS: ADM IN TLOC: SPEC #: [id number] TAYLOR: 01/19/18 STATUS: COMP REQ #: [id number] RECD: 01/20/[address]: Ortega Bolivar M.D. SOURCE: UR, CC ENTR: 01/20/[address] [facility] [address]: Geo Varela M.D. SPDC: Umm Sung DO ORDERED: CULTURE URCLEAN COMMENTS: Has Specimen Been Obtained/Collected? Y Procedure Result Verified Site URINE CULTURE Final 01/22/18-1017 Organism 1 ENTEROCOCCUS FAECALIS COLONY COUNT >100,000 CFU/ml SENS SENSITIVITY TO FOLLOW 1. ENTEROCOCCUS FAECALIS Target Route Dose RX AB Cost M.I.C. IQ ------ ----- ------ -- ------ -------- - ------ AMPICILLIN S <=2 GENT SYNERGY S <=500 VANCOMYCIN S 1 PENICILLIN S 2 CIPROFLOXACIN R >2 LEVOFLOXACIN R >4 DAPTOMYCIN S <=0.5 NITROFURANTOIN S <=32 STREP SYNERGY S <=1000 Streptomycin Synergy Screen S Gentamicin Synergy Screen S S = SENSITIVE I = INTERMEDIATE R = RESISTANT 24 Hours Test 01/22/18 07:02 01/22/18 07:19 01/22/18 11:27 01/22/18 16:27 White Blood Count 4.16 K/uL Red Blood Count 2.99 M/uL Hemoglobin 8.7 g/dL Hematocrit 25.2 % Mean Corpuscular Volume 84.3 fL Mean Corpuscular Hemoglobin 29.1 pg Mean Corpuscular Hemoglobin Concent 34.5 g/dl Platelet Count 151 K/uL Mean Platelet Volume 10.9 fL RDW Standard Deviation 46.1 fL RDW Coefficient of Variation 16.2 % Neutrophils % (Manual) 1.8 % Lymphocytes % (Manual) 52.1 % Monocytes % (Manual) 35.4 % Basophils % (Manual) 1.8 % Metamyelocytes % 0.9 % Blast Cells % 8.0 % Neutrophils # (Manual) 0.07 K/uL Total Absolute Neutrophils 0.07 K/uL Lymphocytes # (Manual) 2.17 K/uL Total Absolute Lymphocytes 2.17 K/uL Monocytes # (Manual) 1.47 K/uL Basophils # (Manual) 0.07 K/uL Metamyelocytes # 0.04 K/uL Blast Cells # 0.33 K/uL Giant Platelets 1+ Rouleau 1+ Sodium Level 135 mmol/L Potassium Level 3.8 mmol/L Chloride Level 101 mmol/L Carbon Dioxide Level 26 mmol/L Anion Gap 8.0 mmol/L Blood Urea Nitrogen 26 mg/dl Creatinine 1.49 mg/dl Est Creatinine Clear Calc Drug Dose 37.3 ml/min Estimated GFR () 52.5 Estimated GFR (Non- 45.3 BUN/Creatinine Ratio 17.3 Random Glucose 103 mg/dl Calcium Level 8.6 mg/dl Total Bilirubin 0.5 mg/dl Direct Bilirubin 0.1 mg/dl Aspartate Amino Transf (AST/SGOT) 25 U/L Alanine Aminotransferase (ALT/SGPT) 14 U/L Alkaline Phosphatase 55 U/L Total Protein 9.5 gm/dl Albumin 2.0 gm/dl Lipase 175 U/L Bedside Glucose 108 mg/dl 151 mg/dl 130 mg/dl Test 01/22/18 20:36 Bedside Glucose 114 mg/dl Assessment and Plan 77-year-old male with AML now with sepsis with new lower lobe pneumonia, possible aspiration, likely healthcare acquired, as well as a possibility developing cholecystitis and possible enterococcal urinary tract infection. Patient to continue on linezolid and imipenem. Will follow.
[2018-01-22 23:30] VITALS: BP 129/90; PULSE 94; TEMP 36.8; O2SAT 97
[2018-01-23] VITALS (8 sets, daily range): BP systolic 127–153; BP diastolic 82–95; PULSE 80–99; TEMP 36.8–37.2; O2SAT 93–97
[2018-01-23] MEDS: IMIPENEM-CILASTATIN 200 MG in DEXTROSE 5% 100ML 100 ML IV SCH ×2 (03:58→09:28)
[2018-01-23] MEDS: LEVOTHYROXINE 50 MCG TAB PO SCH (06:34)
[2018-01-23] MEDS: OXYCODONE HCL IR 5 MG TAB (IMMEDIATE RELEASE) PO PRN ×2 (07:38→20:13)
[2018-01-23] MEDS: INSULIN ASPART 100 UNITS/ML 3 ML PEN SC SCH ×4 (07:41→20:32)
[2018-01-23 07:45] LABS: HEMATOCRIT 26.3 % (42-52); HEMOGLOBIN 9.1 g/dL (14.0-18.0); MEAN CORPUSCULAR HEMOGLOBIN 29.1 pg (25-34); MEAN CORPUSCULAR HGB CONC 34.6 g/dl (32-36); MEAN PLATELET VOLUME 10.6 fL (7.4-10.4); PLATELET COUNT 153 K/uL (130-400); RED CELL DISTRIBUTION WIDTH CV 16.1 % (11.5-14.5); RED CELL DISTRIBUTION WIDTH SD 46.2 fL (36.4-46.3); WHITE BLOOD COUNT 5.27 K/uL (4.8-10.8)
[2018-01-23 08:03] LABS: CALCIUM 8.5 mg/dl (8.5-10.1); CREATININE 1.49 mg/dl (0.60-1.40); POTASSIUM 3.7 mmol/L (3.5-5.1)
[2018-01-23] MEDS: POLYETHYLENE (MIRALAX) 17 GM PACK PO SCH (08:20)
[2018-01-23] MEDS: LANSOPRAZOLE SOLUTAB 30 MG PO SCH (08:21)
[2018-01-23] MEDS: GABAPENTIN 100 MG CAP PO SCH ×3 (08:21→20:14)
[2018-01-23] MEDS: ASPIRIN 81 MG ECTAB PO SCH (08:21)
[2018-01-23] MEDS: RANITIDINE HCL 150 MG TAB PO SCH ×2 (08:21→20:14)
[2018-01-23] MEDS: HEPARIN SOD 5000 UNIT/0.5 ML CARP SQ SCH ×3 (08:22→15:39)
[2018-01-23] MEDS: LINEZOLID 600MG / D5W IV SCH ×2 (09:30→21:37)
[2018-01-23 09:51] LABS: BASO % 0.8 %; BASO ABS # 0.04 K/uL (0-0.2); EOS % 0.8 %; EOS ABS # 0.04 K/uL (0-0.5); LYMPH % 52.1 %; LYMPH ABS # 2.75 K/uL (1.2-3.4); MONO % 46.3 %; MONO ABS # 2.44 K/uL (0.11-0.59)
--- NOTE | 2018-01-23 09:54 | Clinical Documentation Query ---
CLINICAL DOCUMENTATION QUERY 77 year old male who presents with severe sepsis 2/2 HCAP. Progress notes are stating aspiration. Coding cannot assume a link to the HCAP unless specified by physician. In your clinical opinion is this patient being managed for: ( x ) HCAP due to aspiration (Aspiration Pneumonia) treated with aspiration precautions, IV Primaxin and Linezolid. ( ) Not Agree ( ) Other explanation of clinical findings (No explanation is considered a No Response) ( ) Unable to determine ( ) Need to Discuss (Phone CDS or qliq) (No discussion is considered a No Response) The medical record reflects the following clinical findings, treatment, and risk factors. Clinical Indicators: As above, Sepsis, CXR with LLL opacitiy. Treatment: Aspiration precautions, pureed diet, honey thickened liquids, IV Primaxin, IV Linezolid, Risk Factors: Age, Aspiration, Cerebral palsy Please clarify and document your clinical opinion in the progress notes and discharge summary. Terms such as "probable", "suspected", "likely", "questionable", "possible", or "still to be ruled out" are acceptable. IF IN AGREEMENT, YOU MUST DOCUMENT ABOVE DIAGNOSTIC STATEMENT IN DAILY PROGRESS NOTES AND DISCHARGE SUMMARY. This document is not part of the patient's record. Thank You, Memo Centeno, TOBI [phone] & via qlicCONNECT
--- NOTE | 2018-01-23 15:26 | Progress Note ---
Internal Med Progress Note Date of Service: Jan 23, 2018. Provider Documentation: SUBJECTIVE: Had a choking episode with dental soft food at lunch, Coughing spell of approximately 15-20 minutes Patient is ordered n.p.o. Evaluated at bedside Was not coughing, resting comfortably in bed Offers no complain Does not like pured food Patient been evaluated by speech pathology, high risk for aspiration, very Limited option without feeding tube Patient was allowed to eat at his convenience, family was aware with aspiration risk Diet change to pured with nectar thick for dinner Can be advanced to dental soft diet as tolerated in a.m. OBJECTIVE: Vital Signs-as noted below Exam: General-currently ill appearing elderly male, no apparent distress Eyes-clear nonicteric ENT-moist oral mucosa Neck-no thyromegaly, trachea midline Lungs-coarse rales bilaterally, no wheeze Heart-regular S1-S2 Abdomen-soft nontender Extremities-contracted hands due to cerebral palsy, multiple scabbed wounds on both upper extremity Neuro-dysarthria, spastic limbs secondary to cerebral palsy, no facial droop, no focal neurological deficit noted Lab data as noted below. ASSESSMENT & PLAN: SEPSIS /HCAP DUE TO ASPIRATION PNEUMONIA : high risk for aspiration due to Cerebral Palsy /advanced age presented with LLB pneumonia /sepsis appreciate input form speech therapy ideally pt should require feeding tube to prevent aspiration Family does not want Peg tube /given pt's age/Cerebral palsy avoiding feeding tube is appropriate on Pureed with nectar thick diet later changed to dental soft as pt refused to have Pureed diet episode of coughing spell today on solid food ordered for NPO and trial of pureed diet can be advanced to dental soft diet if tolerated /no aspiration noted on empiric IV Abx with Imipenem and Zyvox Day # 4 ( ist day of tx 01/20/18 ) ID following pt will need to complete total 7 days of empiric Abx tx -Last day Abx 01/26/18 SEVERE DYSPHAGIA: Due to overall deconditioning, advanced age, cerebral palsy Presented with sepsis with chest x-ray showing left lower lobe opacity Appreciate input from speech therapy Patient has significant pharyngeal stage dysphagia-leading to unable to swallow solid / silent aspiration of thin liquid Family refused feeding tube-due to poor quality of life Speech recommended-Pure diet with nectar thick liquids Patient is against dietary modification, Patient is continued with diet as tolerated with family and patient aware with permissive aspiration In future may need to consider palliative care should aspiration pneumonia becomes more frequent Family updated-in agreement UTI(present on admission) Urine culture: Enterococcus faecalis Patient is on Zyvox-provides adequate treatment JULITA ON CKD stage III Baseline creatinine approximately 1.8 Creatinine on admission was 2.99 ATN possibly secondary to sepsis/infection/poor p.o. 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 Hemoglobin at the time of admission was 5.4 Status post 2 units of PRBC transfusion Transfuse as needed to maintain hemoglobin above 7 DVT PROPHYLAXIS moderate to high risk Sub q heparin DISPOSITION return back to [facility] after completing IV ABx ( last day of tx Monday01/26/18) Sister updated over phone Vital Signs: Date Time Temp Pulse Resp B/P (MAP) Pulse Ox O2 Delivery O2 Flow Rate FiO2 01/23/18 15:12 36.9 92 18 127/86 (100) 93 Room Air 01/23/18 11:06 37.2 80 18 147/82 (103) 94 Room Air 01/23/18 08:00 Room Air 01/23/18 07:08 37.2 88 16 153/94 (113) 94 Room Air 01/23/18 03:30 37.0 92 16 136/82 (100) 97 Room Air 01/23/18 00:02 Room Air 01/22/18 23:30 36.8 94 16 129/90 (103) 97 Room Air 01/22/18 19:09 37.3 107 18 155/89 (111) 94 Room Air Lab Results: Results Past 24 Hours Test 01/22/18 20:36 01/23/18 03:59 01/23/18 07:03 01/23/18 07:23 Range/Units Bedside Glucose 114 116 132 70-99 mg/dl White Blood Count 5.27 4.8-10.8 K/uL Red Blood Count 3.13 4.7-6.1 M/uL Hemoglobin 9.1 14.0-18.0 g/dL Hematocrit 26.3 42-52 % Mean Corpuscular Volume 84.0 80-100 fL Mean Corpuscular Hemoglobin 29.1 25-34 pg Mean Corpuscular Hemoglobin Concent 34.6 32-36 g/dl Platelet Count 153 130-400 K/uL Mean Platelet Volume 10.6 7.4-10.4 fL Neutrophils (%) (Auto) 0.0 % Lymphocytes (%) (Auto) 52.1 % Monocytes (%) (Auto) 46.3 % Eosinophils (%) (Auto) 0.8 % Basophils (%) (Auto) 0.8 % Neutrophils # (Auto) 0.00 1.4-6.5 K/uL Lymphocytes # (Auto) 2.75 1.2-3.4 K/uL Monocytes # (Auto) 2.44 0.11-0.59 K/uL Eosinophils # (Auto) 0.04 0-0.5 K/uL Basophils # (Auto) 0.04 0-0.2 K/uL RDW Standard Deviation 46.2 36.4-46.3 fL RDW Coefficient of Variation 16.1 11.5-14.5 % Blood Smear Review Sodium Level 134 136-145 mmol/L Potassium Level 3.7 3.5-5.1 mmol/L Chloride Level 101 98-107 mmol/L Carbon Dioxide Level 25 21-32 mmol/L Anion Gap 8.0 3-11 mmol/L Blood Urea Nitrogen 23 7-18 mg/dl Creatinine 1.49 0.60-1.40 mg/dl Est Creatinine Clear Calc Drug Dose 37.3 ml/min Estimated GFR () 52.5 Estimated GFR (Non- 45.3 BUN/Creatinine Ratio 15.7 10-20 Random Glucose 128 70-99 mg/dl Calcium Level 8.5 8.5-10.1 mg/dl Test 01/23/18 11:11 Range/Units Bedside Glucose 173 70-99 mg/dl
[2018-01-23] MEDS: ACETAMINOPHEN 325 MG TAB PO PRN (15:38)
[2018-01-23] MEDS ORDERED: RXC5 PO (15:39)
[2018-01-23] MEDS ORDERED: NRN100 PO (15:39)
[2018-01-23] MEDS: IMIPENEM/CILASTATIN IV 300 MG in DEXTROSE 5% 100ML 100 ML IV SCH ×2 (15:45→21:37)
--- NOTE | 2018-01-23 15:48 | Infectious Disease Progress Nt ---
Progress Note Date of Service Jan 23, 2018. Subjective Pt evaluation today including: conversation w/ patient, physical exam, chart review, lab review, review of studies, conversation w/ dairy consultant, review of inpatient medication list Having witnessed episodes of aspiration. Remains afebrile. No increase in abdominal pain. All Other Systems: Reviewed and Negative Medications Current Inpatient Medications Medications (Trade) Dose Ordered Sig/Lucille Route Start Time Stop Time Status Last Admin Dose Admin Gabapentin (Neurontin Cap) 200 mg TID PO 01/20/18 09:00 02/19/18 08:59 01/23/18 08:21 200 MG Insulin Glargine (Lantus Solostar Pen) 10 units DAILY SQ 01/21/18 09:00 02/20/18 08:59 Future Hold Levothyroxine Sodium (Synthroid Tab) 50 mcg DAILYBB PO 01/20/18 06:00 02/19/18 05:59 01/23/18 06:34 50 MCG Oxycodone HCl (Roxicodone Immediate Rel Tab) 5 mg QID PRN PO 01/20/18 01:00 02/03/18 00:59 01/23/18 07:38 5 MG Ranitidine HCl (zANTac TAB) 150 mg BID PO 01/20/18 09:00 02/19/18 08:59 01/23/18 08:21 150 MG Lansoprazole (Prevacid Solutab) 30 mg DAILY PO 01/20/18 09:00 02/19/18 08:59 01/23/18 08:21 30 MG Polyethylene (Miralax Powder Packet) 17 gm DAILY PO 01/20/18 09:00 02/19/18 08:59 Prochlorperazine Edisylate 5 mg/ Syringe 5 ml @ 5 mls/min Q6H PRN IV 01/20/18 01:00 02/19/18 00:59 Hydromorphone HCl (Dilaudid Inj) 0.25 mg Q3H PRN IV 01/20/18 01:00 02/03/18 00:59 Imipenem/ Cilastatin Sodium (Consult) 1 ea UD PRN N/A 01/20/18 09:00 01/26/18 15:59 Albuterol/ Ipratropium (Duoneb) 3 ml Q2H PRN INH 01/20/18 01:00 02/19/18 00:59 Insulin Aspart (novoLOG ASPART) SLIDING SCALE If C... ACHS SC 01/20/18 07:00 02/19/18 06:59 01/21/18 20:22 2 UNITS Glucose (Glucose 40% Gel) 15-30 GRAMS 15 GRAMS... UD PRN PO 01/20/18 01:00 02/19/18 00:59 Glucose (Glucose Chew Tab) 4-8 Tablets 4 Tabl... UD PRN PO 01/20/18 01:00 02/19/18 00:59 Dextrose (Dextrose 50% 50ML Syringe) 25-50ML 25ML FOR ... UD PRN IV 01/20/18 01:00 02/19/18 00:59 Glucagon (Glucagon Inj) 1 mg UD PRN SQ 01/20/18 01:00 02/19/18 00:59 Carbohydrates (Carbohydrates For Hypoglycemia) 15-30 GRAMS 15 grams if BSG 54-69... UD PRN PO 01/20/18 01:00 02/19/18 00:59 Acetaminophen (Tylenol Tab) 650 mg Q4H PRN PO 01/20/18 01:00 02/19/18 00:59 01/23/18 15:38 650 MG Nitroglycerin (Nitrostat Tab) 0.4 mg UD PRN SL 01/20/18 01:00 02/19/18 00:59 Linezolid (Consult) 1 ea UD PRN N/A 01/20/18 04:15 01/26/18 09:59 Aspirin (Ecotrin Tab) 81 mg DAILY PO 01/20/18 09:00 02/19/18 08:59 01/23/18 08:21 81 MG Linezolid 600 mg/ Prmx 300 ml @ 200 mls/hr Q12H IV 01/20/18 10:00 01/26/18 09:59 01/23/18 09:30 200 MLS/HR Heparin Sodium (Porcine) (Heparin Sq 5000 Unit/0.5ml) 5,000 unit Q8H SQ 01/21/18 08:00 02/20/18 07:59 01/23/18 15:39 5,000 UNIT Imipenem/ Cilastatin Sodium 300 mg/Dextrose 106 ml @ 106 mls/hr Q6H IV 01/23/18 16:00 7/27/18 15:59 01/23/18 15:45 106 MLS/HR Objective Vital Signs Date Time Temp Pulse Resp B/P (MAP) Pulse Ox O2 Delivery O2 Flow Rate FiO2 01/23/18 15:12 36.9 92 18 127/86 (100) 93 Room Air 01/23/18 11:06 37.2 80 18 147/82 (103) 94 Room Air 01/23/18 08:00 Room Air 01/23/18 07:08 37.2 88 16 153/94 (113) 94 Room Air 01/23/18 03:30 37.0 92 16 136/82 (100) 97 Room Air 01/23/18 00:02 Room Air 01/22/18 23:30 36.8 94 16 129/90 (103) 97 Room Air 01/22/18 19:09 37.3 107 18 155/89 (111) 94 Room Air Physical Exam General Appearance: WD/WN, no apparent distress Eyes: normal inspection, EOMI, sclerae normal ENT: normal ENT inspection, pharynx normal Neck: supple, no adenopathy, thyroid normal, no carotid bruits Respiratory/Chest: chest non-tender, no respiratory distress, no accessory muscle use, + rales Cardiovascular: regular rate, rhythm, no gallop, no murmur Abdomen: normal bowel sounds, non tender, soft, no organomegaly Extremities: non-tender, no calf tenderness Neurologic/Psychiatric: alert, oriented x 3 Skin: normal color, warm/dry, no rash Lymphatic: no adenopathy Laboratory Results RUN DATE: 01/22/18 [facility] LAB PAGE 1 RUN TIME: 1017 Specimen Inquiry [id number] LOC: Charles U # : [id number] AGE/SX: 77/M ROOM: S243 REG : 01/20/[address]: Norman Tran M.D. : 1940 BED: 1 DIS : STATUS: ADM IN TLOC: SPEC #: [id number] TAYLOR: 01/19/18 STATUS: COMP REQ #: [id number] RECD: 01/20/18-[address]: Ortega Bolivar M.D. SOURCE: UR, CC ENTR: 01/20/[address] [facility] DR: Geo Varela M.D. SPDESC: Umm Sung DO ORDERED: CULTURE URKALIE COMMENTS: Has Specimen Been Obtained/Collected? Y Procedure Result Verified Site URINE CULTURE Final 01/22/18-1017 Organism 1 ENTEROCOCCUS FAECALIS COLONY COUNT >100,000 CFU/ml SENS SENSITIVITY TO FOLLOW 1. ENTEROCOCCUS FAECALIS Target Route Dose RX AB Cost M.I.C. IQ ------ ----- ------ -- ------ -------- - ------ AMPICILLIN S <=2 GENT SYNERGY S <=500 VANCOMYCIN S 1 PENICILLIN S 2 CIPROFLOXACIN R >2 LEVOFLOXACIN R >4 DAPTOMYCIN S <=0.5 NITROFURANTOIN S <=32 STREP SYNERGY S <=1000 Streptomycin Synergy Screen S Gentamicin Synergy Screen S S = SENSITIVE I = INTERMEDIATE R = RESISTANT END OF REPORT Last 24 Hours Test 01/22/18 16:27 01/22/18 20:36 01/23/18 03:59 01/23/18 07:03 Bedside Glucose 130 mg/dl 114 mg/dl 116 mg/dl White Blood Count 5.27 K/uL Red Blood Count 3.13 M/uL Hemoglobin 9.1 g/dL Hematocrit 26.3 % Mean Corpuscular Volume 84.0 fL Mean Corpuscular Hemoglobin 29.1 pg Mean Corpuscular Hemoglobin Concent 34.6 g/dl Platelet Count 153 K/uL Mean Platelet Volume 10.6 fL Neutrophils (%) (Auto) 0.0 % Lymphocytes (%) (Auto) 52.1 % Monocytes (%) (Auto) 46.3 % Eosinophils (%) (Auto) 0.8 % Basophils (%) (Auto) 0.8 % Neutrophils # (Auto) 0.00 K/uL Lymphocytes # (Auto) 2.75 K/uL Monocytes # (Auto) 2.44 K/uL Eosinophils # (Auto) 0.04 K/uL Basophils # (Auto) 0.04 K/uL RDW Standard Deviation 46.2 fL RDW Coefficient of Variation 16.1 % Blood Smear Review Sodium Level 134 mmol/L Potassium Level 3.7 mmol/L Chloride Level 101 mmol/L Carbon Dioxide Level 25 mmol/L Anion Gap 8.0 mmol/L Blood Urea Nitrogen 23 mg/dl Creatinine 1.49 mg/dl Est Creatinine Clear Calc Drug Dose 37.3 ml/min Estimated GFR () 52.5 Estimated GFR (Non- 45.3 BUN/Creatinine Ratio 15.7 Random Glucose 128 mg/dl Calcium Level 8.5 mg/dl Test 01/23/18 07:23 01/23/18 11:11 Bedside Glucose 132 mg/dl 173 mg/dl Assessment and Plan 77-year-old male with AML now with sepsis with new lower lobe pneumonia, possible aspiration, likely healthcare acquired. Given problem with oral antibiotics, would complete 7 days of IV antibiotics and then hold and observe for clinical response.
--- NOTE | 2018-01-23 16:31 | Discharge Instructions ---
Discharge Instructions Date of Service Jan 23, 2018. Admission Reason for Admission: Sepsis Discharge Discharge Diagnosis / Problem: ASPIRATION PNEUMONIA/SEPSIS/SEVERE DYSPHAGIA/UTI Discharge Goals Goal(s): Decrease discomfort, Improve function, Increase independence, Improve disease control, Therapeutic intervention Activity Recommendations Activity Limitations: as noted below (As tolerated) . Instructions / Follow-Up Instructions / Follow-Up Follow-up with family physician at [facility] Diet recommendation : For quality of life-patient is allowed for permissive aspiration/family in agreement 1. Diet dental cut/with thin liquids 2. Strict aspiration precautions. Fully upright for meals and for stay upright 30 minutes after meals 3. Stringent oral care to include brushing all surfaces of mouth and tongue prior to and after meals, as well as before bed, to reduce oral bacteria that can be aspirated in saliva. 4. Stop feeding/hold meal to the patient show any evidence of overt aspiration/ coughing spells/increased difficulty tolerating solid food and re approach after rest. 5. No role or benefit with further speech therapy Current Hospital Diet Patient's current hospital diet: Regular Diet Discharge Diet Recommended Diet: Regular Diet Diet Texture: Dental Soft (bite-sized) Liquid Consistency: Box Thick Pending Studies Studies pending at discharge: no Medical Emergencies . Who to Call and When: Medical Emergencies: If at any time you feel your situation is an emergency, please call 911 immediately. . Non-Emergent Contact Non-Emergency issues call your: Primary Care Provider . . "Provider Documentation" section prepared by Yesica Cruz. .
[2018-01-24] MEDS: IMIPENEM/CILASTATIN IV 300 MG in DEXTROSE 5% 100ML 100 ML IV SCH ×4 (04:08→22:14)
[2018-01-24] MEDS: LEVOTHYROXINE 50 MCG TAB PO SCH (05:53)
[2018-01-24 07:11] VITALS: BP 151/98; PULSE 91; TEMP 37; O2SAT 91
[2018-01-24] MEDS: POLYETHYLENE (MIRALAX) 17 GM PACK PO SCH (08:54)
[2018-01-24] MEDS: LANSOPRAZOLE SOLUTAB 30 MG PO SCH (08:54)
[2018-01-24] MEDS: GABAPENTIN 100 MG CAP PO SCH ×3 (08:54→20:35)
[2018-01-24] MEDS: RANITIDINE HCL 150 MG TAB PO SCH ×2 (08:54→20:35)
[2018-01-24] MEDS: ASPIRIN 81 MG ECTAB PO SCH (08:54)
[2018-01-24] MEDS: HEPARIN SOD 5000 UNIT/0.5 ML CARP SQ SCH ×4 (08:57→23:20)
[2018-01-24] MEDS: INSULIN ASPART 100 UNITS/ML 3 ML PEN SC SCH ×4 (08:58→20:36)
[2018-01-24] MEDS: LINEZOLID 600MG / D5W IV SCH ×2 (09:49→22:14)
[2018-01-24 15:37] VITALS: BP 124/82; PULSE 102; TEMP 37; O2SAT 92
[2018-01-24] MEDS: OXYCODONE HCL IR 5 MG TAB (IMMEDIATE RELEASE) PO PRN ×2 (16:09→22:15)
--- NOTE | 2018-01-24 17:49 | Progress Note ---
Internal Med Progress Note Date of Service: Jan 24, 2018. Provider Documentation: SUBJECTIVE: Feels much better today, very cheerful Tolerating dental soft diet well without any overt signs and symptoms of aspiration No fever chills wants to know when he can be discharged back to [facility] OBJECTIVE: Vital Signs-as noted below Exam: General-currently ill appearing elderly male, no apparent distress Eyes-clear nonicteric ENT-moist oral mucosa Neck-no thyromegaly, trachea midline Lungs-coarse rales bilaterally, no wheeze Heart-regular S1-S2 Abdomen-soft nontender Extremities-contracted hands due to cerebral palsy, multiple scabbed wounds on both upper extremity Neuro-dysarthria, spastic limbs secondary to cerebral palsy, no facial droop, no focal neurological deficit noted Lab data as noted below. ASSESSMENT & PLAN: SEPSIS /HCAP DUE TO ASPIRATION PNEUMONIA : Clinically improved high risk for aspiration due to Cerebral Palsy /advanced age presented with LLB pneumonia /sepsis appreciate input form speech therapy ideally pt should require feeding tube to prevent aspiration Family does not want Peg tube /given pt's age/Cerebral palsy avoiding feeding tube is appropriate on Pureed with nectar thick diet later changed to dental soft as pt refused to have Pureed diet Noted to have aspiration/coughing spell with solid yesterday Patient was n.p.o., later diet advance to soft dental chopped Tolerated all 3 meals today without any sign or symptom of overt aspiration on empiric IV Abx with Imipenem and Zyvox Day # 5( ist day of tx 01/20/18 ) ID following pt will need to complete total 7 days of empiric Abx tx -Last day Abx 01/26/18 SEVERE DYSPHAGIA: Due to overall deconditioning, advanced age, cerebral palsy Presented with sepsis with chest x-ray showing left lower lobe opacity Appreciate input from speech therapy Patient has significant pharyngeal stage dysphagia-leading to unable to swallow solid / silent aspiration of thin liquid Family refused feeding tube-due to poor quality of life Speech recommended-Pure diet with nectar thick liquids Patient is against dietary modification, Patient is continued with diet as tolerated with family and patient aware with permissive aspiration In future may need to consider palliative care should aspiration pneumonia becomes more frequent Family updated-in agreement UTI(present on admission) Urine culture: Enterococcus faecalis Patient is on Zyvox-provides adequate treatment JULITA ON CKD stage III Baseline creatinine approximately 1.8 Creatinine on admission was 2.99 ATN possibly secondary to sepsis/infection/poor p.o. 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 Hemoglobin at the time of admission was 5.4 Status post 2 units of PRBC transfusion Transfuse as needed to maintain hemoglobin above 7 DVT PROPHYLAXIS moderate to high risk Sub q heparin DISPOSITION return back to [facility] after completing IV ABx ( last day of tx Monday01/26/18) Sister updated over phone Vital Signs: Date Time Temp Pulse Resp B/P (MAP) Pulse Ox O2 Delivery O2 Flow Rate FiO2 01/25/18 00:00 Room Air 01/24/18 23:20 37.2 98 18 105/71 (82) 93 Room Air 01/24/18 16:00 Room Air 01/24/18 15:37 37.0 102 18 124/82 (96) 92 Room Air 01/24/18 08:00 Room Air 01/24/18 07:11 37.0 91 18 151/98 (115) 91 Room Air Lab Results: Results Past 24 Hours Test 01/24/18 08:56 01/24/18 11:56 01/24/18 16:34 01/24/18 20:05 Range/Units Bedside Glucose 149 143 124 128 70-99 mg/dl
[2018-01-24 23:20] VITALS: BP 105/71; PULSE 98; TEMP 37.2; O2SAT 93
[2018-01-25] MEDS: IMIPENEM/CILASTATIN IV 300 MG in DEXTROSE 5% 100ML 100 ML IV SCH ×4 (04:05→22:24)
[2018-01-25] MEDS: LEVOTHYROXINE 50 MCG TAB PO SCH (06:18)
[2018-01-25 07:28] VITALS: BP 143/93; PULSE 96; TEMP 37.4; O2SAT 93
[2018-01-25] MEDS: INSULIN ASPART 100 UNITS/ML 3 ML PEN SC SCH ×4 (08:52→21:00)
[2018-01-25] MEDS: POLYETHYLENE (MIRALAX) 17 GM PACK PO SCH (08:52)
[2018-01-25] MEDS: HEPARIN SOD 5000 UNIT/0.5 ML CARP SQ SCH ×3 (08:52→23:46)
[2018-01-25] MEDS: GABAPENTIN 100 MG CAP PO SCH ×3 (08:53→19:46)
[2018-01-25] MEDS: LANSOPRAZOLE SOLUTAB 30 MG PO SCH (08:54)
[2018-01-25] MEDS: ASPIRIN 81 MG ECTAB PO SCH (08:54)
[2018-01-25] MEDS: OXYCODONE HCL IR 5 MG TAB (IMMEDIATE RELEASE) PO PRN ×2 (08:54→19:46)
[2018-01-25] MEDS: RANITIDINE HCL 150 MG TAB PO SCH ×2 (08:54→19:46)
[2018-01-25] MEDS: LINEZOLID 600MG / D5W IV SCH ×2 (10:52→23:46)
[2018-01-25 14:53] VITALS: BP 124/85; PULSE 88; TEMP 36.5; O2SAT 99
[2018-01-25 17:07] LABS: CREATININE 1.45 mg/dl (0.60-1.40)
--- NOTE | 2018-01-25 18:43 | Progress Note ---
Internal Med Progress Note Date of Service: Jan 25, 2018. Provider Documentation: SUBJECTIVE: Denies of any complaint, pleasant Has nonproductive cough Tolerating dental chopped moist diet Eager to be discharged back to [facility] as soon as possible OBJECTIVE: Vital Signs-as noted below Exam: General-currently ill appearing elderly male, no apparent distress Eyes-clear nonicteric ENT-moist oral mucosa Neck-no thyromegaly, trachea midline Lungs-coarse rales bilaterally, no wheeze Heart-regular S1-S2 Abdomen-soft nontender Extremities-contracted hands due to cerebral palsy, multiple scabbed wounds on both upper extremity Neuro-dysarthria, spastic limbs secondary to cerebral palsy, no facial droop, no focal neurological deficit noted Lab data as noted below. ASSESSMENT & PLAN: SEPSIS /HCAP DUE TO ASPIRATION PNEUMONIA : Clinically improved high risk for aspiration due to Cerebral Palsy /advanced age presented with LLB pneumonia /sepsis appreciate input form speech therapy ideally pt should require feeding tube to prevent aspiration Family does not want Peg tube /given pt's age/Cerebral palsy avoiding feeding tube is appropriate on Pureed with nectar thick diet later changed to dental soft as pt refused to have Pureed diet Noted to have aspiration/coughing spell with solid yesterday Patient was n.p.o., later diet advance to soft dental chopped Tolerated all 3 meals today without any sign or symptom of overt aspiration on empiric IV Abx with Imipenem and Zyvox Day # 6( ist day of tx 01/20/18 ) ID following pt will need to complete total 7 days of empiric Abx tx -Last day Abx tomorrow Will be discharged back to [facility] after antibiotic treatment SEVERE DYSPHAGIA: Due to overall deconditioning, advanced age, cerebral palsy Presented with sepsis with chest x-ray showing left lower lobe opacity Appreciate input from speech therapy Patient has significant pharyngeal stage dysphagia-leading to unable to swallow solid / silent aspiration of thin liquid Family refused feeding tube-due to poor quality of life Speech recommended-Pure diet with nectar thick liquids Patient is against dietary modification, Patient is continued with diet as tolerated with family and patient aware with permissive aspiration In future may need to consider palliative care should aspiration pneumonia becomes more frequent Family updated-in agreement UTI(present on admission) Urine culture: Enterococcus faecalis Patient is on Zyvox-provides adequate treatment JULITA ON CKD stage III Baseline creatinine approximately 1.8 Creatinine on admission was 2.99 ATN possibly secondary to sepsis/infection/poor p.o. 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 Hemoglobin at the time of admission was 5.4 Status post 2 units of PRBC transfusion Transfuse as needed to maintain hemoglobin above 7 DVT PROPHYLAXIS moderate to high risk Sub q heparin DISPOSITION return back to [facility] tomorrow Vital Signs: Date Time Temp Pulse Resp B/P (MAP) Pulse Ox O2 Delivery O2 Flow Rate FiO2 01/26/18 12:41 36.6 96 20 93 Nasal Cannula 01/26/18 08:00 Room Air 01/26/18 07:08 36.6 96 20 117/74 (88) 93 Room Air 01/26/18 00:00 Room Air 01/26/18 00:00 36.7 98 18 107/71 (83) 93 Room Air Lab Results: Results Past 24 Hours Test 01/25/18 20:18 01/26/18 07:36 01/26/18 11:35 Range/Units Bedside Glucose 145 178 115 70-99 mg/dl
--- NOTE | 2018-01-25 20:08 | Infectious Disease Progress Nt ---
Progress Note Date of Service Jan 25, 2018. Subjective Pt evaluation today including: conversation w/ patient, physical exam, chart review, lab review, review of studies, conversation w/ integrity consultant, review of inpatient medication list Patient remains afebrile, no increase in shortness of breath or cough. All Other Systems: Reviewed and Negative Medications Current Inpatient Medications Medications (Trade) Dose Ordered Sig/Lucille Route Start Time Stop Time Status Last Admin Dose Admin Gabapentin (Neurontin Cap) 200 mg TID PO 01/20/18 09:00 02/19/18 08:59 01/25/18 19:46 200 MG Levothyroxine Sodium (Synthroid Tab) 50 mcg DAILYBB PO 01/20/18 06:00 02/19/18 05:59 01/25/18 06:18 50 MCG Oxycodone HCl (Roxicodone Immediate Rel Tab) 5 mg QID PRN PO 01/20/18 01:00 02/03/18 00:59 01/25/18 19:46 5 MG Ranitidine HCl (zANTac TAB) 150 mg BID PO 01/20/18 09:00 02/19/18 08:59 01/25/18 19:46 150 MG Lansoprazole (Prevacid Solutab) 30 mg DAILY PO 01/20/18 09:00 02/19/18 08:59 01/25/18 08:54 30 MG Polyethylene (Miralax Powder Packet) 17 gm DAILY PO 01/20/18 09:00 02/19/18 08:59 Prochlorperazine Edisylate 5 mg/ Syringe 5 ml @ 5 mls/min Q6H PRN IV 01/20/18 01:00 02/19/18 00:59 Hydromorphone HCl (Dilaudid Inj) 0.25 mg Q3H PRN IV 01/20/18 01:00 02/03/18 00:59 Imipenem/ Cilastatin Sodium (Consult) 1 ea UD PRN N/A 01/20/18 09:00 01/26/18 15:59 Albuterol/ Ipratropium (Duoneb) 3 ml Q2H PRN INH 01/20/18 01:00 02/19/18 00:59 Insulin Aspart (novoLOG ASPART) SLIDING SCALE If C... ACHS SC 01/20/18 07:00 02/19/18 06:59 01/21/18 20:22 2 UNITS Glucose (Glucose 40% Gel) 15-30 GRAMS 15 GRAMS... UD PRN PO 01/20/18 01:00 02/19/18 00:59 Glucose (Glucose Chew Tab) 4-8 Tablets 4 Tabl... UD PRN PO 01/20/18 01:00 02/19/18 00:59 Dextrose (Dextrose 50% 50ML Syringe) 25-50ML 25ML FOR ... UD PRN IV 01/20/18 01:00 02/19/18 00:59 Glucagon (Glucagon Inj) 1 mg UD PRN SQ 01/20/18 01:00 02/19/18 00:59 Carbohydrates (Carbohydrates For Hypoglycemia) 15-30 GRAMS 15 grams if BSG 54-69... UD PRN PO 01/20/18 01:00 02/19/18 00:59 Acetaminophen (Tylenol Tab) 650 mg Q4H PRN PO 01/20/18 01:00 02/19/18 00:59 01/23/18 15:38 650 MG Nitroglycerin (Nitrostat Tab) 0.4 mg UD PRN SL 01/20/18 01:00 02/19/18 00:59 Linezolid (Consult) 1 ea UD PRN N/A 01/20/18 04:15 01/26/18 09:59 Aspirin (Ecotrin Tab) 81 mg DAILY PO 01/20/18 09:00 02/19/18 08:59 Future hold 01/25/18 08:54 81 MG Linezolid 600 mg/ Prmx 300 ml @ 200 mls/hr Q12H IV 01/20/18 10:00 01/26/18 09:59 01/25/18 10:52 200 MLS/HR Heparin Sodium (Porcine) (Heparin Sq 5000 Unit/0.5ml) 5,000 unit Q8H SQ 01/21/18 08:00 02/20/18 07:59 01/24/18 23:20 5,000 UNIT Imipenem/ Cilastatin Sodium 300 mg/Dextrose 106 ml @ 106 mls/hr Q6H IV 01/23/18 16:00 01/26/18 15:59 01/25/18 16:09 106 MLS/HR Objective Vital Signs Date Time Temp Pulse Resp B/P (MAP) Pulse Ox O2 Delivery O2 Flow Rate FiO2 01/25/18 16:00 Room Air 01/25/18 14:53 36.5 88 20 124/85 (98) 99 01/25/18 08:00 Room Air 01/25/18 07:28 37.4 96 20 143/93 (110) 93 Room Air 01/25/18 00:00 Room Air 01/24/18 23:20 37.2 98 18 105/71 (82) 93 Room Air Physical Exam General Appearance: WD/WN, no apparent distress Eyes: normal inspection, EOMI, sclerae normal ENT: hearing grossly normal, pharynx normal Neck: supple, no adenopathy, thyroid normal, trachea midline Respiratory/Chest: chest non-tender, no respiratory distress, no accessory muscle use, + rales Cardiovascular: regular rate, rhythm, no gallop, no murmur Abdomen: normal bowel sounds, non tender, soft, no organomegaly Extremities: non-tender, no calf tenderness Neurologic/Psychiatric: alert, oriented x 3 Skin: normal color, no rash Lymphatic: no adenopathy Laboratory Results Last 24 Hours Test 01/25/18 07:22 01/25/18 11:15 01/25/18 16:06 01/25/18 16:31 Bedside Glucose 129 mg/dl 164 mg/dl 121 mg/dl Creatinine 1.45 mg/dl Est Creatinine Clear Calc Drug Dose 38.3 ml/min Estimated GFR () 54.2 Estimated GFR (Non- 46.8 Assessment and Plan 77-year-old male with AML now with sepsis with new lower lobe pneumonia, possible aspiration, likely healthcare acquired. Given problem with oral antibiotics, would complete 7 days of IV antibiotics and then hold and observe for clinical response.
[2018-01-26] VITALS: BP 107/71; PULSE 98; TEMP 36.7; O2SAT 93
[2018-01-26] MEDS: OXYCODONE HCL IR 5 MG TAB (IMMEDIATE RELEASE) PO PRN (01:31)
[2018-01-26] MEDS: IMIPENEM/CILASTATIN IV 300 MG in DEXTROSE 5% 100ML 100 ML IV SCH ×2 (03:37→09:53)
[2018-01-26] MEDS: LEVOTHYROXINE 50 MCG TAB PO SCH (06:23)
[2018-01-26] MEDS: INSULIN ASPART 100 UNITS/ML 3 ML PEN SC SCH ×2 (06:30→12:37)
[2018-01-26 07:08] VITALS: BP 117/74; PULSE 96; TEMP 36.6; O2SAT 93
[2018-01-26] MEDS: HEPARIN SOD 5000 UNIT/0.5 ML CARP SQ SCH (08:00)
[2018-01-26] MEDS: GABAPENTIN 100 MG CAP PO SCH ×2 (08:07→14:17)
[2018-01-26] MEDS: LANSOPRAZOLE SOLUTAB 30 MG PO SCH (08:07)
[2018-01-26] MEDS: ASPIRIN 81 MG ECTAB PO SCH (08:07)
[2018-01-26] MEDS: POLYETHYLENE (MIRALAX) 17 GM PACK PO SCH (08:08)
[2018-01-26] MEDS: RANITIDINE HCL 150 MG TAB PO SCH (08:08)
--- NOTE | 2018-01-26 12:10 | Discharge Summary ---
Discharge Summary Date of Service Jan 26, 2018. Discharge Summary Admission Date: Jan 20, 2018 at 00:28 Discharge Date: Jan 26, 2018 Discharge Disposition: snf facility ([facility] ) Principal Diagnosis: ASPIRATION PNEUMONIA/SEPSIS/SEVERE DYSPHAGIA/UTI Procedures: IMAGING 1. Video fluoroscopy swallow study: Consultations: SPEECH PATHOLOGY Medication Reconciliation New Medications: Gabapentin (Gabapentin) 100 Mg Cap 200 MG PO TID for 30 Days, #180 CAP Oxycodone HCl (Oxycodone HCl) 5 Mg Tab 5 MG PO QID PRN for pain not relieved by tylenol, #10 TAB Continued Medications: Acetaminophen Tab (Tylenol) 325 Mg Tab 650 MG PO Q4 PRN for Fever TEMP >100 , MILD-SEVERE Antacid (Antacid) . 30 ML PO UD TAKE WITH MEALS & HS Aspirin (Aspirin) 81 Mg Tab 81 MG PO DAILY Bisacodyl (Bisac-Evac) 10 Mg Sup 1 SUPP RE DAILY PRN for Constipation Camphor & Menthol (Men-Phor) 1 Lot Lot 1 APPLN TOP Q2H PRN for Itching APPLY TO BODY Collagenase (Santyl) 250 Unit/Gm Oin 1 APPL TOP UD cleanse buttock area with saline, apply thin layer to scabbed area buttocks Duloxetine HCl (Cymbalta) 30 Mg Cap 1 CAP PO DAILY for 30 Days, #30 CAP 5 Refills Guaifenesin (Siltussin Sa) 100 Mg/5 Ml Syp 10 ML PO Q4 PRN for Cough FOR 10 DAY , END 01/26/2018 Hydroxyzine Hcl (Atarax) 25 Mg Tab 25 MG PO Q6 PRN for Itching, TAB Insulin Glargine (Lantus Solostar) 100 Unit/Ml Inj 10 UNITS SQ HS, VIAL Ipratropium-Albuterol (Duoneb) 3 Ml Nebu 1 TREATMENT INH QID for 10 Days GIVE FOR 10 DAYS. END 01/29/2018 Ipratropium-Albuterol (Duoneb) 3 Ml Nebu 1 TREATMENT INH Q4H PRN for Wheezing, INHA Lansoprazole (Prevacid) 15 Mg Capcr 30 MG PO DAILY, CAP Levothyroxine Sodium (Synthroid) 50 Mcg Tab 50 MG PO DAILY for 30 Days, TAB 5 Refills Magnesium Hydroxide (Milk Of Magnesia) 30 Ml Susp 30 ML PO DIRECTED PRN for Constipation, ML Menthol (Mouth-Throat) ([place] Cough Drops) 7 Mg Jossie 1 DROP PO Q2H PRN for Cough Mupirocin 2% (Bactroban 2%) 30 Gm Cr 1 APPLN EXT UD, TUBE APPLY TO OPEN & SCABBED AREAS ON RIGHT FOREARM FOLLOWED BY ADAPTIC & NON-ADHERANT DRESSING. Ondansetron Hcl (Zofran) 4 Mg Tab 1 TAB PO Q6 PRN for Nausea or Vomiting, #10 TAB 1 Refill Polyethylene Glycol 3350 (Miralax) 1 Pow Pow 17 GM PO DAILY Ranitidine (Zantac) 150 Mg Tab 150 MG PO BID Silver Sulfadiazine (Silvadene) 1 % Cre 1 APPLN TOP BID for 7 Days, #50 GM APPLY TO CRACKED SKIN BEHIND LEFT EAR Sodium Phosphates (Fleet Enema Six Pack) 1 Chastity Chastity 1 SUPP RE DIRECTED Tizanidine (Zanaflex ) 4 Mg Tab 4 MG PO TID, TAB [orajel] () 1 APPLN TOP Q2H PRN for SORE GUMS Discontinued Medications: Doxycycline Hyclate (Doxycycline Hyclate) 100 Mg Tab 1 TAB PO BID for 10 Days, #20 TAB Gabapentin (Neurontin) 400 Mg Cap 400 MG PO TID, CAP Levofloxacin (Levaquin) 500 Mg Tab 1 TAB PO DAILY for 9 Days, #9 TAB END 01/26/2018 Oxycodone Ir (Roxicodone Ir) 5 Mg Tab 5 MG PO QID, TAB Admission Information HPI (per Admitting provider): DATE OF ADMISSION: 01/20/2018 PRIMARY CARE DOCTOR: Dr. Varela. CHIEF COMPLAINT: Fever, chills. HISTORY OF PRESENT ILLNESS: History obtained from patient and records. Medical history significant for cerebral palsy, DM2 insulin requiring, Transfusion dependent AML, gastroparesis, neurogenic bladder and bowel as per records, tetraplegia, history of epidural abscess sp surgery, past tobacco abuse, history of MRSA as per records, aspiration risk as per records. Chronic renal insufficiency (baseline creatinine 1.7 to 2). 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 Patient came in with a hemoglobin of 5. Subsequent transfusion done. Weekly CBCs being done at [facility]. Progressive hemoglobin decline from 8.9 (01/01) to 7.9 (01/08) to 6.9 (01/17) on review of outpatient blood work. No overt bleeding noted. Outpatient blood transfusion scheduled this weekend. As per outpatient [facility] provider notes, Oncology recommended comfort measures, but the patient and family refused comfort measures. Blood transfusions for hemoglobin less than 6. long term PCP had another lengthy discussion with family regarding issue but family insisting on the transfusion. Last few days, patient will be weak, tired. Patient complaining of back pain, fatigue, junky cough symptoms. The patient not sure about aspiration. No chest pain. Some shortness of breath. No headache. Patient treated with Levaquin for bronchitis. [facility] concerned about low BP last night. At the Emergency Room, blood pressure noted to be initially SBPs 70s. NSS, Zyvox, Levaquin, and Azactam given for sepsis. SBP currently 90s. Physical Exam (per Admitting): GENERAL: Noted to be chronically ill, dysarthric (chronic). No respiratory distress. SKIN: Pallor, warm. HEENT: Alopecia. Pale palpebral conjunctivae. No ptosis. Chronic facial asymmetry noted during speech, nasal cannula in place. NECK: Short, supple. CHEST: Decreased effort. Occasional wheeze. HEART: Regular rate and rhythm. No murmur. ABDOMEN: Some distention, none tender. BACK: Exam showed red area in the left buttock. RECTAL: Intact sphincter. Brown stool, heme negative. EXTREMITIES: Spastic contractures. No LE tenderness. NEUROLOGIC: Coherent, chronic dysarthria, chronic facial asymmetry. Limited strength on MMTs. Hospital Course Course cough, with productive sputum No fever chills Completed IV antibiotic for aspiration pneumonia Will be discharged to [facility] today PHYSICAL EXAM GENERAL: Noted to be chronically ill, dysarthric (chronic). No respiratory distress. SKIN: Pallor, warm. HEENT: Alopecia. Pale palpebral conjunctivae. No ptosis. Chronic facial asymmetry noted during speech, nasal cannula in place. NECK: Short, supple. CHEST: Decreased effort. Occasional wheeze. HEART: Regular rate and rhythm. No murmur. ABDOMEN: Some distention, none tender. BACK: Exam showed red area in the left buttock. RECTAL: Intact sphincter. Brown stool, heme negative. EXTREMITIES: Spastic contractures. No LE tenderness. NEUROLOGIC: Coherent, chronic dysarthria, chronic facial asymmetry. Limited strength Date Time Temp Pulse Resp B/P (MAP) Pulse Ox O2 Delivery O2 Flow Rate FiO2 01/26/18 12:41 36.6 96 20 93 Nasal Cannula 01/26/18 08:00 Room Air 01/26/18 07:08 36.6 96 20 117/74 (88) 93 Room Air SEPSIS /HCAP DUE TO ASPIRATION PNEUMONIA : Clinically improved high risk for aspiration due to Cerebral Palsy /advanced age presented with LLB pneumonia /sepsis appreciate input form speech therapy ideally pt should require feeding tube to prevent aspiration Family does not want Peg tube /given pt's age/Cerebral palsy avoiding feeding tube is appropriate on Pureed with nectar thick diet later changed to dental soft as pt refused to have Pureed diet Noted to have aspiration/coughing spell with solid yesterday Patient was n.p.o., later diet advance to soft dental chopped Tolerated all 3 meals today without any sign or symptom of overt aspiration on empiric IV Abx with Imipenem and Zyvox Day # 7( ist day of tx 01/20/18 ) ID following pt will need to completed total 7 days of empiric Abx tx -Last day Abx today Stable to be returned back to [facility] SEVERE DYSPHAGIA: Due to overall deconditioning, advanced age, cerebral palsy Presented with sepsis with chest x-ray showing left lower lobe opacity Appreciate input from speech therapy Patient has significant pharyngeal stage dysphagia-leading to unable to swallow solid / silent aspiration of thin liquid Family refused feeding tube-due to poor quality of life Speech recommended-Pure diet with nectar thick liquids Patient is against dietary modification, Patient is continued with diet as tolerated with family and patient aware with permissive aspiration In future may need to consider palliative care should aspiration pneumonia becomes more frequent Family updated-in agreement UTI(present on admission) Urine culture: Enterococcus faecalis Treated with Zyvox-provides adequate treatment JULITA ON CKD stage III Baseline creatinine approximately 1.8 Creatinine on admission was 2.99 ATN possibly secondary to sepsis/infection/poor p.o. 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 Discharge Instructions Discharge Instructions Date of Service Jan 23, 2018. Admission Reason for Admission: Sepsis Discharge Discharge Diagnosis / Problem: ASPIRATION PNEUMONIA/SEPSIS/SEVERE DYSPHAGIA/UTI Discharge Goals Goal(s): Decrease discomfort, Improve function, Increase independence, Improve disease control, Therapeutic intervention Activity Recommendations Activity Limitations: as noted below (As tolerated) . Instructions / Follow-Up Instructions / Follow-Up Follow-up with family physician at [facility] Diet recommendation : For quality of life-patient is allowed for permissive aspiration/family in agreement 1. Diet dental cut/with thin liquids 2. Strict aspiration precautions. Fully upright for meals and for stay upright 30 minutes after meals 3. Stringent oral care to include brushing all surfaces of mouth and tongue prior to and after meals, as well as before bed, to reduce oral bacteria that can be aspirated in saliva. 4. Stop feeding/hold meal to the patient show any evidence of overt aspiration/ coughing spells/increased difficulty tolerating solid food and re approach after rest. 5. No role or benefit with further speech therapy Current Hospital Diet Patient's current hospital diet: Regular Diet Discharge Diet Recommended Diet: Regular Diet Diet Texture: Dental Soft (bite-sized) Liquid Consistency: [place] Thick Pending Studies Studies pending at discharge: no Medical Emergencies . Who to Call and When: Medical Emergencies: If at any time you feel your situation is an emergency, please call 911 immediately. . Non-Emergent Contact Non-Emergency issues call your: Primary Care Provider . . "Provider Documentation" section prepared by Yesica Cruz.
[2018-01-26 12:41] VITALS: BP 117/74; PULSE 96; TEMP 36.6; O2SAT 93
[2018-01-26] MEDS ORDERED: LINEZOLID 600MG / D5W IV ONE (15:00)
[2018-01-26] MEDS ORDERED: RXC5 PO (15:26)
== END 2018-01-26 15:45 | DRG 871 ==
LOC: EDBD 21:40 → C.EDC 21:44 → ENRESERV 01-20 00:12 → C.2T 01-20 00:28 → ENRESERV 01-23 16:04 → C.MS2W 01-23 16:30
PROVIDERS: ADMIT Hospitalist; ATTEND Hospitalist
DX: A41.9 Sepsis, unspecified organism (principal); J69.0 Pneumonitis due to inhalation of food and vomit; R65.20 Severe sepsis without septic shock; N17.0 Acute kidney failure with tubular necrosis; N39.0 Urinary tract infection, site not specified; C92.00 Acute myeloblastic leukemia, not having achieved remission; J96.11 Chronic respiratory failure with hypoxia; D63.0 Anemia in neoplastic disease; B95.2 Enterococcus as the cause of diseases classified elsewhere; K81.9 Cholecystitis, unspecified; R13.13 Dysphagia, pharyngeal phase; D70.9 Neutropenia, unspecified; E11.22 Type 2 diabetes mellitus with diabetic chronic kidney disease; N18.3 Chronic kidney disease, stage 3 (moderate); G80.8 Other cerebral palsy; E03.9 Hypothyroidism, unspecified; K21.9 Gastro-esophageal reflux disease without esophagitis; Z51.81 Encounter for therapeutic drug level monitoring; Z79.899 Other long term (current) drug therapy; Z79.4 Long term (current) use of insulin; Z79.82 Long term (current) use of aspirin; Z66 Do not resuscitate; Z86.14 Personal history of Methicillin resistant Staphylococcus aureus infection; Z86.73 Personal history of transient ischemic attack (TIA), and cerebral infarction without residual deficits; Z87.891 Personal history of nicotine dependence; Z88.0 Allergy status to penicillin; Z88.1 Allergy status to other antibiotic agents; Z82.49 Family history of ischemic heart disease and other diseases of the circulatory system

== ENCOUNTER 2018-06-26 15:20 | Inpatient (IN) ==
[2018-06-26] MEDS ORDERED: SODIUM CHLORIDE 0.9% 500 ML IV SCH (16:00)
[2018-06-26 16:09] LABS: iSTAT Hemoglobin 5.8 g/dl (14.0-18.0); iSTAT Ionized Calcium 1.11 mmol/l (1.12-1.32)
[2018-06-26 16:15] LABS: HCO3 ABG 27 mmol/L (19-24); Oxygen Saturation ABG 91.2 % (90-95); PCO2 ABG 42 mmHg (35-46); PO2 ABG 85 mm/Hg (80-95); pH ABG 7.43 (7.35-7.45)
[2018-06-26 16:15] LABS: Mean Corpuscular Hgb Conc 32.7 g/dL (32-36)
[2018-06-26 16:16] LABS: Allen Test Pos (Pos)
--- NOTE | 2018-06-26 16:29 | XRay Report ---
XR chest 1V portable HISTORY: 78 years-old Male weakness acute weakness COMPARISON: Chest radiograph 01/19/2018 TECHNIQUE: Portable AP view of the chest FINDINGS: Cardiac silhouette is enlarged, unchanged. Stable mediastinal widening. No pneumothorax. Trace right pleural effusion with subsegmental right greater than left bibasilar opacities. Degenerative changes of the shoulders and spine. Partially imaged fusion hardware of the cervical spine. IMPRESSION: 1. Cardiomegaly without overt pulmonary edema. 2. Subsegmental bibasilar opacities suggest atelectasis or pneumonitis. 3. Trace right pleural effusion. The above report was generated using voice recognition software. It may contain grammatical, syntax o r spelling errors. Electronically signed by: Alireza Rainey M.D. 06/26/2018 4:28 PM
[2018-06-26 16:45] LABS: Platelet Count 28 K/uL (130-400)
[2018-06-26 16:58] LABS: Albumin Level 1.9 gm/dl (3.4-5.0); Bilirubin,Total 0.3 mg/dl (0.1-1); Calcium 7.9 mg/dl (8.5-10.1); Creatinine Clr Calc Pharmacy 21.2 ml/min; Est GFR (African American) 26.8; Est GFR (Non-African American) 23.1; Potassium 4.2 mmol/L (3.5-5.1); Total Protein 9.1 gm/dl (6.4-8.2); Troponin I 0.054 ng/ml (0-0.045)
[2018-06-26 17:01] LABS: Hematocrit (blood only) 15.6 % (42-52); Hemoglobin 5.1 g/dL (14.0-18.0); Mean Platelet Volume 13.2 fL (7.4-10.4); Nucleated RBC # (auto) 0.14 K/uL (0-0); Nucleated RBC % (auto) 0.4 %; RDW Coefficient of Variation 18.3 % (11.5-14.5); RDW Standard Deviation 52.8 fL (36.4-46.3); Red Blood Count 1.66 M/uL (4.7-6.1); White Blood Count 35.28 K/uL (4.8-10.8)
[2018-06-26 17:05] LABS: Polychromasia 1+; Rouleaux 1+
[2018-06-26 17:07] LABS: ALC (manual) 11.47 K/uL (1.2-3.4); Blast # (manual) 19.26 K/uL (0-0); Blast Cells % (manual) 54.6 %; Globulin 7.2 gm/dl (2.5-4.0); Lymphocytes # (manual) 11.47 K/uL (1.2-3.4); Lymphocytes % (manual) 32.5 %; Metamyelocytes # (manual) 0.32 K/uL (0-0); Metamyelocytes % (manual) 0.9 %; Monocytes # (manual) 3.63 K/uL (0.11-0.59); Monocytes % (manual) 10.3 %; Neutrophils % (manual) 1.7 %
[2018-06-26 17:09] LABS: Albumin Globulin Ratio 0.3 (0.9-2)
[2018-06-26 17:28] LABS: BUN Creatinine Ratio 23.3 (10-20)
--- NOTE | 2018-06-26 19:19 | History & Physical Report ---
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 and deemed to be a poor candidate for chemotherapy with general poor prognosis -as per intermediate labs 06/22/18 WBC 34 K with Hgb 6.7 and Platelet 33 K -as per transfer papers, patient may have had symptoms of desaturation or diaphoresis at the intermediate -sent to ED on 06/26/18 and found to have WBC 35K and Hgb 5.1 and Platelet 28 K -patient receiving 2 units or PRBC as per ED doctor and admitted to medical service for further management -will trend blood counts after blood tranfusions; have notified hematology services affiliated with [facility] outpatient clinic; appreciate further recommendations -will try to maintain Hgb above 7 and platelets above 10 K -elevated WBC may likley be due to AML as these levels appear chronic at least for past several days; send urinalysis and blood cultures but no active infectious process suspected at this time, trend WBC -will start IV fluids after blood transfusion and see if hydration will reduce WBC Allergies reported to Ceftin, Augmentin, Vancomycin, Amoxillins Right buttock excoriations -wound care, minimize pressure on right buttock History of teraplegia, cerebral palsy, neurogenic bladder, neurogenic bowel as per outpatient records -PT/OT as needed -bowel regimen -duloxetine, gabapentin, tizanidine 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 and deemed to be a poor candidate for chemotherapy with general poor prognosis -as per intermediate labs 06/22/18 WBC 34 K with Hgb 6.7 and Platelet 33 K -as per transfer papers, patient may have had symptoms of desaturation or diaphoresis at the intermediate -sent to ED on 06/26/18 and found to have WBC 35K and Hgb 5.1 and Platelet 28 K -patient receiving 2 units or PRBC as per ED doctor and admitted to medical service for further management on review of systems., patient denies fever or chest pain or shortness of breath or palpitations or abdominal pain or vomiting or leg pain or problems with urination or bowel movements He did report of buttock pain and there are excoriations on right buttock Allergies reported to Ceftin, Augmentin, Vancomycin, Amoxillins Family history: patient denies any known health history of medical problems Allergies Allergy/AdvReac Type Severity Reaction Status Date / Time amoxicillin Allergy Intermediate RASH HEAD Verified 06/26/18 16:40 TO TOE clavulanic acid Allergy Intermediate RASH HEAD Verified 06/26/18 16:40 TO TOE vancomycin Allergy Intermediate RASH Verified 06/26/18 16:40 cefuroxime Allergy Unknown UNKNOWN Verified 06/26/18 16:40 Home Medications Home Medications Medication Instructions Recorded Confirmed Type acetaminophen 650 mg PO QID PRN #0 11/25/16 06/08/18 History aspirin [Aspir-81] 81 mg PO DAILY #0 11/25/16 04/19/18 History polyethylene glycol 3350 17 packet PO DAILY #0 11/25/16 06/08/18 History ranitidine HCl 150 mg PO BID #0 11/25/16 06/08/18 History ondansetron HCl 4 mg PO QID PRN #10 tab 03/26/17 04/19/18 History levothyroxine 50 mcg PO DAILY 30 Days #0 tab 04/27/17 04/19/18 History sodium phosphates 118 ml OK DAILY #0 05/18/17 04/19/18 History tizanidine 4 mg PO TID #0 tab 09/21/17 04/19/18 History duloxetine 30 mg PO DAILY 30 Days #30 cap 11/17/17 04/19/18 History lansoprazole 15 mg PO DAILY #0 cap 11/17/17 04/19/18 History silver sulfadiazine 1 applic TOPICAL DAILY 7 Days #50 g 01/19/18 04/19/18 History bisacodyl [Dulcolax (bisacodyl)] 10 mg OK DAILY 06/08/18 06/08/18 History camphor-menthol [Men-Phor] 1 applic TOPICAL BID PRN 06/08/18 06/08/18 History magnesium hydroxide [Milk of 30 ml PO DAILY PRN 06/08/18 06/08/18 History Magnesia] menthol [Cough Drops] 06/08/18 History morphine 5 mg PO Q2H 06/08/18 06/08/18 History multivitamin 1 tab PO DAILY 06/08/18 06/08/18 History ondansetron HCl [Zofran] 8 mg PO TID PRN 06/08/18 06/08/18 History promethazine [Phenergan] 25 mg OK Q4H PRN 06/08/18 06/08/18 History sodium chloride [Saline Nasal] 1 spray INTRANASAL Q3H PRN 06/08/18 06/08/18 History gabapentin 200 mg PO TID 06/26/18 06/26/18 History hydroxyzine pamoate 25 mg PO Q6H PRN 06/26/18 06/26/18 History insulin glargine [Lantus U-100 10 unit SUBCUT DAILY 06/26/18 06/26/18 History Insulin] ipratropium-albuterol 3 ml INHALATION Q4H 06/26/18 06/26/18 History oxycodone 5 mg PO QID PRN 06/26/18 06/26/18 History Past Med/Surg History Medical History Anxiety (Acute) COPD (chronic obstructive pulmonary disease) (Acute) CVA (cerebral vascular accident) (Acute) Cancer (Acute) Dysphagia (Acute) Eating disorder (Acute) Gastrointestinal disorder (Acute) Gout (Acute) Kidney disease (Acute) Male genitourinary symptoms (Acute) Neurogenic bladder (Acute) Neurogenic bowel (Acute) Neurological disorder (Acute) PEG (percutaneous endoscopic gastrostomy) adjustment/replacement/removal (Acute) Reflux gastritis (Acute) TIA (transient ischemic attack) (Acute) Thyroid disease (Acute) Surgical History History of appendectomy (Acute) Social History Current Living Situation: [facility] Other Information That Helps Us Care for You: No Feels Safe at Home: Yes Safety Concerns: Feels Safe At This Time Smoking Status: Never smoker Hx Alcohol Use: No Hx Substance Use: No Beliefs That Will Affect Care: None Preferred Language: Turkmen Communication Ability: Effective Supervisor Treating And Pumping Required: No Physical Exam 2 Vital Signs (Past 24 Hours): Last Vital Signs Temp 37.0 C 06/26/18 18:46 Pulse 84 06/26/18 18:46 Resp 18 06/26/18 18:46 BP 116/86 06/26/18 18:46 Pulse Ox 100 06/26/18 18:46 Physical Exam: General: no acute distress Eyes: EOMI Lungs: clear to asuculation bilaterally Heart: regular rate Abdomen: soft, nontender, positive bowel sounds Extremities: chronic deviation of right hand at the wrist and chronic internal rotation of the leg foot at the ankle
[2018-06-26 19:35] LABS: Appearance Urine Cloudy (Clear); Bacteria Urine Automated Negative (Negative); Bilirubin Urine Negative (Negative); Color Urine Yellow; Epithelial Cell Urine Auto >30 /lpf (0-5); Glucose Urine UA Negative (Negative); Ketones Urine Negative (Negative); Leukocyte Esterase Urine Negative (Negative); Nitrite Urine Negative (Negative); Protein Urine 1+ (Negative); Specific Gravity Urine 1.018 (1.000-1.030); Urobilinogen Urine Negative (Negative)
[2018-06-26] MEDS ORDERED: OXYCODONE HCL IR 5 MG TAB (IMMEDIATE RELEASE) PO PRN (19:50)
[2018-06-26] MEDS ORDERED: CARBOHYDRATES FOR HYPOGLYCEMIA PO PRN (19:50)
[2018-06-26] MEDS ORDERED: GLUCAGON FOR INJ 1 MG VIAL SQ PRN (19:50)
[2018-06-26] MEDS ORDERED: GLUCOSE 10 TABS/TUBE PO PRN (19:50)
[2018-06-26] MEDS ORDERED: DEXTROSE 50% 50 ML SYRINGE IV PRN (19:50)
[2018-06-26] MEDS ORDERED: GLUCOSE 40% GEL 15 GM TUBE PO PRN (19:50)
[2018-06-26] MEDS: SODIUM CHLORIDE 0.9% 1000ML 1,000 ML IV SCH (21:31)
[2018-06-26] MEDS: TIZANIDINE HCL 4 MG TABLET PO SCH (21:32)
[2018-06-26] MEDS: GABAPENTIN 100 MG CAP PO SCH (21:33)
[2018-06-26] MEDS: INSULIN ASPART 100 UNITS/ML 3 ML PEN SC SCH (21:40)
[2018-06-27 03:00] LABS: Albumin Level 1.7 gm/dl (3.4-5.0); BUN Creatinine Ratio 24.8 (10-20); Calcium 7.9 mg/dl (8.5-10.1); Creatinine Clr Calc Pharmacy 24.7 ml/min; Est GFR (African American) 32.3; Est GFR (Non-African American) 27.9; Potassium 3.9 mmol/L (3.5-5.1)
[2018-06-27 03:03] LABS: Albumin Globulin Ratio 0.3 (0.9-2); Bilirubin,Total 0.4 mg/dl (0.1-1); Globulin 6.5 gm/dl (2.5-4.0); Total Protein 8.2 gm/dl (6.4-8.2)
[2018-06-27 03:29] LABS: Hematocrit (blood only) 21.4 % (42-52); Hemoglobin 7.1 g/dL (14.0-18.0); Mean Corpuscular Hgb Conc 33.2 g/dL (32-36); Mean Corpuscular Volume 91.5 fL (80-100); Nucleated RBC # (auto) 0.16 K/uL (0-0); Nucleated RBC % (auto) 0.4 %; RDW Coefficient of Variation 16.4 % (11.5-14.5); RDW Standard Deviation 49.9 fL (36.4-46.3); Red Blood Count 2.34 M/uL (4.7-6.1)
[2018-06-27 03:30] LABS: Platelet Count 20 K/uL (130-400); White Blood Count 39.12 K/uL (4.8-10.8)
[2018-06-27 03:40] LABS: ALC (manual) 12.71 K/uL (1.2-3.4); Basophils # (manual) 0.94 K/uL (0-0.2); Basophils % (manual) 2.4 %; Blast # (manual) 20.19 K/uL (0-0); Blast Cells % (manual) 51.6 %; Eosinophils # (manual) 0.31 K/uL (0-0.5); Lymphocytes # (manual) 12.71 K/uL (1.2-3.4); Lymphocytes % (manual) 32.5 %; Monocytes # (manual) 4.34 K/uL (0.11-0.59); Monocytes % (manual) 11.1 %; Neutrophils % (manual) 1.6 %
[2018-06-27] MEDS: LEVOTHYROXINE SODIUM 50 MCG TABLET PO SCH (06:29)
[2018-06-27] MEDS: TIZANIDINE HCL 4 MG TABLET PO SCH ×3 (08:06→21:05)
[2018-06-27] MEDS: DULOXETINE HCL 30 MG CAP PO SCH (08:07)
[2018-06-27] MEDS: POLYETHYLENE (MIRALAX) 17 GM PACK PO SCH (08:07)
[2018-06-27] MEDS: INSULIN GLARGINE SOLOSTAR 100 UNITS/ML 3 ML PEN SC SCH (08:07)
[2018-06-27] MEDS: GABAPENTIN 100 MG CAP PO SCH ×3 (08:07→21:05)
[2018-06-27] MEDS: INSULIN ASPART 100 UNITS/ML 3 ML PEN SC SCH ×4 (08:08→21:05)
[2018-06-27] MEDS: SODIUM CHLORIDE 0.9% 1000ML 1,000 ML IV SCH ×2 (09:32→19:47)
[2018-06-27] MEDS: CEFEPIME 2,000 MG in SYRINGE 7.5 ML IV SCH (12:03)
--- NOTE | 2018-06-27 16:27 | Emergency Department Note ---
Entered by Chandler Hicks acting as a scribe for History of Present Illness General Chief complaint: Lethargic Source: patient Limitations: no limitations History of Present Illness Onset (ago): day(s) (last night) Location: head Pain Consistency: + constant and + intermittent (weakness) Quality: + constant Associated symptoms: + confusion and + weakness; no shortness of breath The patient is a 78 year old male who presents to the Emergency Room with complaints of constant confusion starting last night. The patient states he has leukemia. The patient states he has had on and off weakness for a long time. He states he passed out last night while laying in bed. He notes he was unresponsive when staff tried to wake him up. He states he has not eaten or drank in a while. The patient states he has been sweating. He denies chest pain. He states he has been breathing fine. According to the staff the patient was altered last night. He is found to have a O2 saturation of 77% on 2 L. He is placed on 5 L and went up to 94%. Home Medications Home Medications Medication Instructions Recorded Confirmed Type acetaminophen 650 mg PO QID PRN #0 11/25/16 06/08/18 History aspirin [Aspir-81] 81 mg PO DAILY #0 11/25/16 04/19/18 History polyethylene glycol 3350 17 packet PO DAILY #0 11/25/16 06/08/18 History ranitidine HCl 150 mg PO BID #0 11/25/16 06/08/18 History ondansetron HCl 4 mg PO QID PRN #10 tab 03/26/17 04/19/18 History levothyroxine 50 mcg PO DAILY 30 Days #0 tab 04/27/17 04/19/18 History sodium phosphates 118 ml GA DAILY #0 05/18/17 04/19/18 History tizanidine 4 mg PO TID #0 tab 09/21/17 04/19/18 History duloxetine 30 mg PO DAILY 30 Days #30 cap 11/17/17 04/19/18 History lansoprazole 15 mg PO DAILY #0 cap 11/17/17 04/19/18 History silver sulfadiazine 1 applic TOPICAL DAILY 7 Days #50 g 01/19/18 04/19/18 History bisacodyl [Dulcolax (bisacodyl)] 10 mg GA DAILY 06/08/18 06/08/18 History camphor-menthol [Men-Phor] 1 applic TOPICAL BID PRN 06/08/18 06/08/18 History magnesium hydroxide [Milk of 30 ml PO DAILY PRN 06/08/18 06/08/18 History Magnesia] menthol [Cough Drops] 06/08/18 History morphine 5 mg PO Q2H 06/08/18 06/08/18 History multivitamin 1 tab PO DAILY 06/08/18 06/08/18 History ondansetron HCl [Zofran] 8 mg PO TID PRN 06/08/18 06/08/18 History promethazine [Phenergan] 25 mg GA Q4H PRN 06/08/18 06/08/18 History sodium chloride [Saline Nasal] 1 spray INTRANASAL Q3H PRN 06/08/18 06/08/18 History gabapentin 200 mg PO TID 06/26/18 06/26/18 History hydroxyzine pamoate 25 mg PO Q6H PRN 06/26/18 06/26/18 History insulin glargine [Lantus U-100 10 unit SUBCUT DAILY 06/26/18 06/26/18 History Insulin] ipratropium-albuterol 3 ml INHALATION Q4H 06/26/18 06/26/18 History oxycodone 5 mg PO QID PRN 06/26/18 06/26/18 History Allergies Allergy/AdvReac Type Severity Reaction Status Date / Time amoxicillin Allergy Intermediate RASH HEAD Verified 06/26/18 16:40 TO TOE clavulanic acid Allergy Intermediate RASH HEAD Verified 06/26/18 16:40 TO TOE vancomycin Allergy Intermediate RASH Verified 06/26/18 16:40 cefuroxime Allergy Unknown UNKNOWN Verified 06/26/18 16:40 Past Med/Surg History Medical History Anxiety (Acute) COPD (chronic obstructive pulmonary disease) (Acute) CVA (cerebral vascular accident) (Acute) Cancer (Acute) Dysphagia (Acute) Eating disorder (Acute) Gastrointestinal disorder (Acute) Gout (Acute) Kidney disease (Acute) Male genitourinary symptoms (Acute) Neurogenic bladder (Acute) Neurogenic bowel (Acute) Neurological disorder (Acute) PEG (percutaneous endoscopic gastrostomy) adjustment/replacement/removal (Acute) Reflux gastritis (Acute) TIA (transient ischemic attack) (Acute) Thyroid disease (Acute) Surgical History History of appendectomy (Acute) Social History marital status: Current Living Situation: Detention Other Information That Helps Us Care for You: No Feels Safe at Home: Yes Safety Concerns: Feels Safe At This Time Smoking Status: Never smoker Hx Alcohol Use: No Hx Substance Use: No Beliefs That Will Affect Care: None Communication Ability: Effective Review of Systems See HPI for pertinent positives & negatives. and A total of 10 systems reviewed and were otherwise negative Physical Exam Vital Signs Vital Signs - 24 hr 06/26/18 16:30 06/26/18 16:41 06/26/18 17:01 Temperature Temperature Source Pulse Rate 85 89 Pulse Rate [Apical] 85 Pulse Rate [Right Finger] Pulse Rhythm Pulse Rhythm [Right Finger] Pulse Strength Pulse Strength [Right Finger] Respiratory Rate 13 12 14 Respiratory Effort / Characteristics Respiratory Depth Respiratory Pattern Blood Pressure 81/60 L 90/59 L Blood Pressure [Left Arm] 89/61 L Blood Pressure [Right Arm] Blood Pressure Mean 67 69 Blood Pressure Mean [Left Arm] 70 Blood Pressure Mean [Right Arm] Blood Pressure Position Blood Pressure Position [Left Arm] Blood Pressure Position [Right Arm] Pulse Oximetry 98 100 98 Oxygen Delivery Method Nasal Cannula Oxygen Flow Rate 4 06/26/18 17:45 06/26/18 18:02 06/26/18 18:32 Temperature 36.6 C 37 C 37 C Temperature Source Oral Oral Oral Pulse Rate 84 83 87 Pulse Rate [Apical] Pulse Rate [Right Finger] Pulse Rhythm Regular Regular Pulse Rhythm [Right Finger] Pulse Strength Normal Normal Pulse Strength [Right Finger] Respiratory Rate 15 13 17 Respiratory Effort / Characteristics Respiratory Depth Respiratory Pattern Blood Pressure 90/52 L 87/46 L 92/53 L Blood Pressure [Left Arm] Blood Pressure [Right Arm] Blood Pressure Mean 64 59 66 Blood Pressure Mean [Left Arm] Blood Pressure Mean [Right Arm] Blood Pressure Position Lying Lying Blood Pressure Position [Left Arm] Blood Pressure Position [Right Arm] Pulse Oximetry 100 100 100 Oxygen Delivery Method Oxygen Flow Rate 4 4 4 06/26/18 18:46 06/26/18 19:16 06/26/18 19:46 Temperature 37.0 C 37.1 C 36.9 C Temperature Source Oral Oral Oral Pulse Rate 84 88 86 Pulse Rate [Apical] Pulse Rate [Right Finger] Pulse Rhythm Regular Pulse Rhythm [Right Finger] Pulse Strength Normal Pulse Strength [Right Finger] Respiratory Rate 18 14 18 Respiratory Effort / Characteristics Respiratory Depth Respiratory Pattern Blood Pressure 116/86 97/58 L 102/61 Blood Pressure [Left Arm] Blood Pressure [Right Arm] Blood Pressure Mean 96 71 74 Blood Pressure Mean [Left Arm] Blood Pressure Mean [Right Arm] Blood Pressure Position Blood Pressure Position [Left Arm] Blood Pressure Position [Right Arm] Pulse Oximetry 100 100 100 Oxygen Delivery Method Oxygen Flow Rate 4 4 4 06/26/18 21:03 06/26/18 21:25 06/26/18 21:40 Temperature 36.9 C 36.9 C 36.9 C Temperature Source Oral Oral Oral Pulse Rate 86 87 83 Pulse Rate [Apical] Pulse Rate [Right Finger] Pulse Rhythm Regular Regular Pulse Rhythm [Right Finger] Pulse Strength Normal Normal Pulse Strength [Right Finger] Respiratory Rate 18 18 18 Respiratory Effort / Characteristics Respiratory Depth Respiratory Pattern Blood Pressure 92/58 L 100/66 104/70 Blood Pressure [Left Arm] Blood Pressure [Right Arm] Blood Pressure Mean 69 77 81 Blood Pressure Mean [Left Arm] Blood Pressure Mean [Right Arm] Blood Pressure Position Lying Lying Blood Pressure Position [Left Arm] Blood Pressure Position [Right Arm] Pulse Oximetry 97 97 98 Oxygen Delivery Method Oxygen Flow Rate 4 3.5 06/26/18 22:10 06/26/18 23:10 06/27/18 03:49 Temperature 36.9 C 36.9 C Temperature Source Oral Oral Pulse Rate 84 71 Pulse Rate [Apical] Pulse Rate [Right Finger] Pulse Rhythm Regular Regular Pulse Rhythm [Right Finger] Pulse Strength Normal Normal Pulse Strength [Right Finger] Respiratory Rate 18 16 Respiratory Effort / Characteristics Non-Labored Spontaneous Respiratory Depth Normal Respiratory Pattern Regular Blood Pressure 101/68 92/62 L Blood Pressure [Left Arm] Blood Pressure [Right Arm] Blood Pressure Mean 79 72 Blood Pressure Mean [Left Arm] Blood Pressure Mean [Right Arm] Blood Pressure Position Lying Lying Blood Pressure Position [Left Arm] Blood Pressure Position [Right Arm] Pulse Oximetry 99 95 Oxygen Delivery Method Nasal Cannula Oxygen Flow Rate 3.5 3.5 3.5 06/27/18 04:51 06/27/18 07:23 06/27/18 11:39 Temperature 37.2 C 37 C 36.8 C Temperature Source Oral Oral Oral Pulse Rate Pulse Rate [Apical] Pulse Rate [Right Finger] 86 82 72 Pulse Rhythm Pulse Rhythm [Right Finger] Regular Pulse Strength Pulse Strength [Right Finger] Normal Respiratory Rate 19 20 18 Respiratory Effort / Characteristics Non-Labored Respiratory Depth Normal Respiratory Pattern Regular Blood Pressure Blood Pressure [Left Arm] 104/68 Blood Pressure [Right Arm] 98/62 L 88/55 L Blood Pressure Mean Blood Pressure Mean [Left Arm] 80 Blood Pressure Mean [Right Arm] 74 66 Blood Pressure Position Blood Pressure Position [Left Arm] Lying Blood Pressure Position [Right Arm] Lying Lying Pulse Oximetry 95 98 95 Oxygen Delivery Method Nasal Cannula Nasal Cannula Nasal Cannula Oxygen Flow Rate 2 4 3 06/27/18 13:28 06/27/18 15:47 Temperature 36.6 C Temperature Source Oral Pulse Rate Pulse Rate [Apical] Pulse Rate [Right Finger] 72 Pulse Rhythm Pulse Rhythm [Right Finger] Pulse Strength Pulse Strength [Right Finger] Respiratory Rate 16 Respiratory Effort / Characteristics Non-Labored Spontaneous Normal for Patient Respiratory Depth Normal Respiratory Pattern Regular Blood Pressure Blood Pressure [Left Arm] 90/57 L Blood Pressure [Right Arm] Blood Pressure Mean Blood Pressure Mean [Left Arm] 68 Blood Pressure Mean [Right Arm] Blood Pressure Position Blood Pressure Position [Left Arm] Lying Blood Pressure Position [Right Arm] Pulse Oximetry 96 Oxygen Delivery Method Nasal Cannula Nasal Cannula Oxygen Flow Rate 2 3 Constitutional: Vital signs reviewed. Eyes: Pupils are equal round reactive to light. Conjunctiva are noninjected. ENT: Pharynx is clear without erythema or exudate. Mucous membranes are dry. Neck supple without meningeal signs. Respiratory: Clear to auscultation bilaterally. Breath sounds are equal bilaterally. Cardiovascular: Regular rate and rhythm. No rubs or gallops. GI: Soft, nondistended and nontender. Bowel sounds are present. Musculoskeletal: No peripheral edema. No lower extremity tenderness. Integumentary: No cyanosis. Neurological: The patient is awake and alert. No focal deficits. Psychiatric: Normal affect. Course 1544: Past medical records reviewed. The patient was evaluated in room B12B, and a complete history and physical examination were performed. 164: I reevaluated the patient. Her blood pressure is at 90 systolic. She agrees to admission. 1723: I reviewed the patient's case with Dr. Sharan Trent Hospitalist. He will evaluate the patient for further management. 1752: The patient is currently being transfused. He is showing no symptoms or adverse effects. Administered Medications Duloxetine HCl (Cymbalta) 30 mg PO DAILY [facility] Stop: 07/27/18 08:59 Last Admin: 06/27/18 08:07 Dose: 30 mg Gabapentin (Neurontin) 200 mg PO TID [facility] Stop: 07/26/18 20:59 Last Admin: 06/27/18 13:22 Dose: 200 mg Admin: 06/27/18 08:07 Dose: 200 mg Admin: 06/26/18 21:33 Dose: 200 mg Sodium Chloride (Nss 1000ml) 1,000 mls @ 80 mls/hr IV .[id number] [facility] Stop: 07/26/18 20:29 Last Admin: 06/27/18 09:32 Dose: 80 mls/hr Infusion: 06/27/18 09:32 Dose: 0 mls/hr Infusion: 06/26/18 22:02 Dose: 0 mls/hr Admin: 06/26/18 21:31 Dose: 80 mls/hr Cefepime HCl 2,000 mg/ Syringe 20 mls @ 5.5 mls/min IV Q24H [facility] Stop: 06/29/18 11:29 Last Admin: 06/27/18 12:03 Dose: 5.5 mls/min Insulin Aspart (Novolog Flexpen) 0 units SC ACHS [facility] Stop: 07/26/18 20:59 Last Admin: 06/27/18 12:03 Dose: 3 units Admin: 06/27/18 08:08 Dose: 1 units Admin: 06/26/18 21:40 Dose: Not Given Insulin Glargine (Lantus Solostar Pen) 10 units SC DAILY [facility] Stop: 07/27/18 08:59 Last Admin: 06/27/18 08:07 Dose: 10 units Levothyroxine Sodium (Synthroid) 50 mcg PO DAILYBB [facility] Stop: 07/27/18 06:29 Last Admin: 06/27/18 06:29 Dose: 50 mcg Polyethylene Glycol (Miralax Powder Packet) 17 gm PO DAILY [facility] Stop: 07/27/18 08:59 Last Admin: 06/27/18 08:07 Dose: 17 gm Ranitidine HCl (Zantac) 150 mg PO BID [facility] Stop: 07/26/18 20:59 Last Admin: 06/27/18 08:07 Dose: 150 mg Admin: 06/26/18 21:32 Dose: 150 mg Tizanidine HCl (Zanaflex) 4 mg PO TID [facility] Stop: 07/26/18 20:59 Last Admin: 06/27/18 13:22 Dose: 4 mg Admin: 06/27/18 08:06 Dose: 4 mg Admin: 06/26/18 21:32 Dose: 4 mg Discontinued Medications Sodium Chloride (Nss) 500 mls @ 999 mls/hr IV .Q31M [facility] Stop: 06/26/18 16:30 Last Infusion: 06/26/18 17:53 Dose: 0 mls/hr Admin: 06/26/18 16:05 Dose: 999 mls/hr Medical Decision Making Differential Diagnosis Leukemia, acute coronary syndrome, pneumonia, respiratory failure, and GI bleed. Medical Records Attestation: I reviewed the patient's medical records. Home Medications Current Medication List: was personally reviewed by me Laboratory Data Attestation: I reviewed the patient's lab results. Result diagrams: 06/27/18 02:02 06/27/18 02:02 Lab Results 06/26/18 06/26/18 06/26/18 Range/Units 15:00 15:37 15:55 WBC 35.28 H* (4.8-10.8) K/uL RBC 1.66 L (4.7-6.1) M/uL Hgb 5.1 L* (14.0-18.0) g/dL POC Hgb (14.0-18.0) g/dl Hct 15.6 L* (42-52) % POC Hct (42-52) % MCV 94.0 (80-100) fL MCH 30.7 (25-34) pg MCHC 32.7 (32-36) g/dL RDW Std Deviation 52.8 H (36.4-46.3) fL RDW Coeff of Tom 18.3 H (11.5-14.5) % Plt Count 28 L* (130-400) K/uL MPV 13.2 H (7.4-10.4) fL Absolute Nucleated RBC 0.14 H (0-0) K/uL Nucleated RBC % (auto) 0.4 % Neutrophils % (Manual) 1.7 % Lymphocytes % (Manual) 32.5 % Monocytes % (Manual) 10.3 % Eosinophils % (Manual) % Basophils % (Manual) % Metamyelocytes % (Man) 0.9 % Blast Cells % (Manual) 54.6 % Neutrophils # (Manual) 0.60 L (1.4-6.5) K/uL Total Absolute Neuts 0.60 L* (1.4-6.5) K/uL Lymphocytes # (Manual) 11.47 H (1.2-3.4) K/uL Total Abs Lymphocytes 11.47 H (1.2-3.4) K/uL Monocytes # (Manual) 3.63 H (0.11-0.59) K/uL Eosinophils # (Manual) (0-0.5) K/uL Basophils # (Manual) (0-0.2) K/uL Metamyelocytes # (Man) 0.32 H (0-0) K/uL Blast Cells # (Man) 19.26 H (0-0) K/uL Blood Smear Review Platelet Estimate Decreased (Normal) Polychromasia 1+ Rouleaux 1+ ABG pH (7.35-7.45) ABG pCO2 (35-46) mmHg ABG pO2 (80-95) mm/Hg ABG HCO3 (19-24) mmol/L ABG O2 Saturation (90-95) % ABG Base Excess (-9-1.8) mEq/L Rubén Test (Pos) Barometric Pressure mm/Hg Oxygen Given POC Sodium (135-144) mEq/L Sodium (136-145) mmol/L POC Potassium (3.3-5.0) mEq/L Potassium (3.5-5.1) mmol/L POC Chloride (101-112) mEq/L Chloride (98-107) mmol/L Carbon Dioxide (21-32) mmol/L POC Total CO2 (24-31) mEq/l Anion Gap (3-11) POC Anion Gap (16-25) mmol/L POC BUN (7-18) mg/dl BUN (7-18) mg/dl Creatinine (0.6-1.4) mg/dl POC Creatinine (0.6-1.3) mg/dl Est Cr Clr Drug Dosing ml/min Est GFR ( Amer) Est GFR (Non-Af Amer) BUN/Creatinine Ratio (10-20) Glucose (70-99) mg/dl POC Glucose 171 H (70-99) POC Glucose (other) (70-99) mg/dl Calcium (8.5-10.1) mg/dl POC Ioniz Calcium Olga Lidia (1.12-1.32) mmol/l Total Bilirubin (0.1-1) mg/dl AST (15-37) U/L ALT (12-78) U/L Alkaline Phosphatase (45-117) U/L Troponin I (0-0.045) ng/ml Total Protein (6.4-8.2) gm/dl Albumin (3.4-5.0) gm/dl Globulin (2.5-4.0) gm/dl Albumin/Globulin Ratio (0.9-2) TSH (0.300-4.500) uIu/ml Specimen Hemolysis Urine Color Urine Appearance (Clear) Urine pH (4.5-7.5) Ur Specific [place] (1.000-1.030) Urine Protein (Negative) Urine Glucose (UA) (Negative) Urine Ketones (Negative) Urine Blood (Negative) Urine Nitrite (Negative) Urine Bilirubin (Negative) Urine Urobilinogen (Negative) Ur Leukocyte Esterase (Negative) Urine WBC (Auto) (0-5) /hpf Urine RBC (Auto) (0-4) /hpf U Hyaline Cast (Auto) (0-5) /lpf U Epithel Cells (Auto) (0-5) /lpf Urine Bacteria (Auto) (Negative) Granular Casts (0) /lpf Urine Yeast Leuk/Lym Flow Cyto Comm Cancelled Blood Type Antibody Screen Crossmatch 06/26/18 06/26/18 06/26/18 Range/Units 15:55 15:56 16:03 WBC (4.8-10.8) K/uL RBC (4.7-6.1) M/uL Hgb (14.0-18.0) g/dL POC Hgb 5.8 L* (14.0-18.0) g/dl Hct (42-52) % POC Hct 17 L* (42-52) % MCV (80-100) fL MCH (25-34) pg MCHC (32-36) g/dL RDW Std Deviation (36.4-46.3) fL RDW Coeff of Tom (11.5-14.5) % Plt Count (130-400) K/uL MPV (7.4-10.4) fL Absolute Nucleated RBC (0-0) K/uL Nucleated RBC % (auto) % Neutrophils % (Manual) % Lymphocytes % (Manual) % Monocytes % (Manual) % Eosinophils % (Manual) % Basophils % (Manual) % Metamyelocytes % (Man) % Blast Cells % (Manual) % Neutrophils # (Manual) (1.4-6.5) K/uL Total Absolute Neuts (1.4-6.5) K/uL Lymphocytes # (Manual) (1.2-3.4) K/uL Total Abs Lymphocytes (1.2-3.4) K/uL Monocytes # (Manual) (0.11-0.59) K/uL Eosinophils # (Manual) (0-0.5) K/uL Basophils # (Manual) (0-0.2) K/uL Metamyelocytes # (Man) (0-0) K/uL Blast Cells # (Man) (0-0) K/uL Blood Smear Review Platelet Estimate (Normal) Polychromasia Rouleaux ABG pH 7.43 (7.35-7.45) ABG pCO2 42 (35-46) mmHg ABG pO2 85 (80-95) mm/Hg ABG HCO3 27 H (19-24) mmol/L ABG O2 Saturation 91.2 (90-95) % ABG Base Excess 2.2 H (-9-1.8) mEq/L Rubén Test Pos (Pos) Barometric Pressure 739.0 mm/Hg Oxygen Given 4L O2 POC Sodium 137 (135-144) mEq/L Sodium 135 L (136-145) mmol/L POC Potassium 4.1 (3.3-5.0) mEq/L Potassium 4.2 (3.5-5.1) mmol/L POC Chloride 98 L (101-112) mEq/L Chloride 99 (98-107) mmol/L Carbon Dioxide 28 (21-32) mmol/L POC Total CO2 26 (24-31) mEq/l Anion Gap 8.0 (3-11) POC Anion Gap 18.0 (16-25) mmol/L POC BUN 63 H (7-18) mg/dl BUN 60 H (7-18) mg/dl Creatinine 2.58 H (0.6-1.4) mg/dl POC Creatinine 2.7 H (0.6-1.3) mg/dl Est Cr Clr Drug Dosing 21.2 ml/min Est GFR ( Amer) 26.8 Est GFR (Non-Af Amer) 23.1 BUN/Creatinine Ratio 23.3 H (10-20) Glucose 155 H (70-99) mg/dl POC Glucose (70-99) POC Glucose (other) 162 H (70-99) mg/dl Calcium 7.9 L (8.5-10.1) mg/dl POC Ioniz Calcium Olga Lidia 1.11 L (1.12-1.32) mmol/l Total Bilirubin 0.3 (0.1-1) mg/dl AST 15 (15-37) U/L ALT 17 (12-78) U/L Alkaline Phosphatase 46 (45-117) U/L Troponin I 0.054 H* (0-0.045) ng/ml Total Protein 9.1 H (6.4-8.2) gm/dl Albumin 1.9 L (3.4-5.0) gm/dl Globulin 7.2 H (2.5-4.0) gm/dl Albumin/Globulin Ratio 0.3 L (0.9-2) TSH 5.040 H (0.300-4.500) uIu/ml Specimen Hemolysis Urine Color Urine Appearance (Clear) Urine pH (4.5-7.5) Ur Specific [place] (1.000-1.030) Urine Protein (Negative) Urine Glucose (UA) (Negative) Urine Ketones (Negative) Urine Blood (Negative) Urine Nitrite (Negative) Urine Bilirubin (Negative) Urine Urobilinogen (Negative) Ur Leukocyte Esterase (Negative) Urine WBC (Auto) (0-5) /hpf Urine RBC (Auto) (0-4) /hpf U Hyaline Cast (Auto) (0-5) /lpf U Epithel Cells (Auto) (0-5) /lpf Urine Bacteria (Auto) (Negative) Granular Casts (0) /lpf Urine Yeast Leuk/Lym Flow Cyto Comm Blood Type Antibody Screen Crossmatch 12/25/18 12/25/18 12/25/18 Range/Units 16:03 19:15 21:38 WBC (4.8-10.8) K/uL RBC (4.7-6.1) M/uL Hgb (14.0-18.0) g/dL POC Hgb (14.0-18.0) g/dl Hct (42-52) % POC Hct (42-52) % MCV (80-100) fL MCH (25-34) pg MCHC (32-36) g/dL RDW Std Deviation (36.4-46.3) fL RDW Coeff of Tom (11.5-14.5) % Plt Count (130-400) K/uL MPV (7.4-10.4) fL Absolute Nucleated RBC (0-0) K/uL Nucleated RBC % (auto) % Neutrophils % (Manual) % Lymphocytes % (Manual) % Monocytes % (Manual) % Eosinophils % (Manual) % Basophils % (Manual) % Metamyelocytes % (Man) % Blast Cells % (Manual) % Neutrophils # (Manual) (1.4-6.5) K/uL Total Absolute Neuts (1.4-6.5) K/uL Lymphocytes # (Manual) (1.2-3.4) K/uL Total Abs Lymphocytes (1.2-3.4) K/uL Monocytes # (Manual) (0.11-0.59) K/uL Eosinophils # (Manual) (0-0.5) K/uL Basophils # (Manual) (0-0.2) K/uL Metamyelocytes # (Man) (0-0) K/uL Blast Cells # (Man) (0-0) K/uL Blood Smear Review Platelet Estimate (Normal) Polychromasia Rouleaux ABG pH (7.35-7.45) ABG pCO2 (35-46) mmHg ABG pO2 (80-95) mm/Hg ABG HCO3 (19-24) mmol/L ABG O2 Saturation (90-95) % ABG Base Excess (-9-1.8) mEq/L Rubén Test (Pos) Barometric Pressure mm/Hg Oxygen Given POC Sodium (135-144) mEq/L Sodium (136-145) mmol/L POC Potassium (3.3-5.0) mEq/L Potassium (3.5-5.1) mmol/L POC Chloride (101-112) mEq/L Chloride (98-107) mmol/L Carbon Dioxide (21-32) mmol/L POC Total CO2 (24-31) mEq/l Anion Gap (3-11) POC Anion Gap (16-25) mmol/L POC BUN (7-18) mg/dl BUN (7-18) mg/dl Creatinine (0.6-1.4) mg/dl POC Creatinine (0.6-1.3) mg/dl Est Cr Clr Drug Dosing ml/min Est GFR ( Amer) Est GFR (Non-Af Amer) BUN/Creatinine Ratio (10-20) Glucose (70-99) mg/dl POC Glucose 134 H (70-99) POC Glucose (other) (70-99) mg/dl Calcium (8.5-10.1) mg/dl POC Ioniz Calcium Olga Lidia (1.12-1.32) mmol/l Total Bilirubin (0.1-1) mg/dl AST (15-37) U/L ALT (12-78) U/L Alkaline Phosphatase (45-117) U/L Troponin I (0-0.045) ng/ml Total Protein (6.4-8.2) gm/dl Albumin (3.4-5.0) gm/dl Globulin (2.5-4.0) gm/dl Albumin/Globulin Ratio (0.9-2) TSH (0.300-4.500) uIu/ml Specimen Hemolysis Urine Color Yellow Urine Appearance Cloudy H (Clear) Urine pH 5.0 (4.5-7.5) Ur Specific [place] 1.018 (1.000-1.030) Urine Protein 1+ H (Negative) Urine Glucose (UA) Negative (Negative) Urine Ketones Negative (Negative) Urine Blood Negative (Negative) Urine Nitrite Negative (Negative) Urine Bilirubin Negative (Negative) Urine Urobilinogen Negative (Negative) Ur Leukocyte Esterase Negative (Negative) Urine WBC (Auto) 1-5 (0-5) /hpf Urine RBC (Auto) 0-4 (0-4) /hpf U Hyaline Cast (Auto) 5-10 H (0-5) /lpf U Epithel Cells (Auto) >30 H (0-5) /lpf Urine Bacteria (Auto) Negative (Negative) Granular Casts 1-5 H (0) /lpf Urine Yeast Not Reportable Leuk/Lym Flow Cyto Comm Blood Type O Positive Antibody Screen NEGATIVE Crossmatch See Detail 06/27/18 06/27/18 06/27/18 Range/Units 02:02 02:02 07:40 WBC 39.12 H* (4.8-10.8) K/uL RBC 2.34 L (4.7-6.1) M/uL Hgb 7.1 L (14.0-18.0) g/dL POC Hgb (14.0-18.0) g/dl Hct 21.4 L (42-52) % POC Hct (42-52) % MCV 91.5 (80-100) fL MCH 30.3 (25-34) pg MCHC 33.2 (32-36) g/dL RDW Std Deviation 49.9 H (36.4-46.3) fL RDW Coeff of Tom 16.4 H (11.5-14.5) % Plt Count 20 L* (130-400) K/uL MPV (7.4-10.4) fL Absolute Nucleated RBC 0.16 H (0-0) K/uL Nucleated RBC % (auto) 0.4 % Neutrophils % (Manual) 1.6 % Lymphocytes % (Manual) 32.5 % Monocytes % (Manual) 11.1 % Eosinophils % (Manual) 0.8 % Basophils % (Manual) 2.4 % Metamyelocytes % (Man) % Blast Cells % (Manual) 51.6 % Neutrophils # (Manual) 0.63 L (1.4-6.5) K/uL Total Absolute Neuts 0.63 L* (1.4-6.5) K/uL Lymphocytes # (Manual) 12.71 H (1.2-3.4) K/uL Total Abs Lymphocytes 12.71 H (1.2-3.4) K/uL Monocytes # (Manual) 4.34 H (0.11-0.59) K/uL Eosinophils # (Manual) 0.31 (0-0.5) K/uL Basophils # (Manual) 0.94 H (0-0.2) K/uL Metamyelocytes # (Man) (0-0) K/uL Blast Cells # (Man) 20.19 H (0-0) K/uL Blood Smear Review Platelet Estimate SIGNIFIC DECREASED (Normal) Polychromasia Rouleaux ABG pH (7.35-7.45) ABG pCO2 (35-46) mmHg ABG pO2 (80-95) mm/Hg ABG HCO3 (19-24) mmol/L ABG O2 Saturation (90-95) % ABG Base Excess (-9-1.8) mEq/L Rubén Test (Pos) Barometric Pressure mm/Hg Oxygen Given POC Sodium (135-144) mEq/L Sodium 137 (136-145) mmol/L POC Potassium (3.3-5.0) mEq/L Potassium 3.9 (3.5-5.1) mmol/L POC Chloride (101-112) mEq/L Chloride 105 (98-107) mmol/L Carbon Dioxide 26 (21-32) mmol/L POC Total CO2 (24-31) mEq/l Anion Gap 6.0 (3-11) POC Anion Gap (16-25) mmol/L POC BUN (7-18) mg/dl BUN 55 H (7-18) mg/dl Creatinine 2.21 H D (0.6-1.4) mg/dl POC Creatinine (0.6-1.3) mg/dl Est Cr Clr Drug Dosing 24.7 ml/min Est GFR ( Amer) 32.3 Est GFR (Non-Af Amer) 27.9 BUN/Creatinine Ratio 24.8 H (10-20) Glucose 139 H (70-99) mg/dl POC Glucose 145 H (70-99) POC Glucose (other) (70-99) mg/dl Calcium 7.9 L (8.5-10.1) mg/dl POC Ioniz Calcium Olga Lidia (1.12-1.32) mmol/l Total Bilirubin 0.4 (0.1-1) mg/dl AST 11 L (15-37) U/L ALT 14 (12-78) U/L Alkaline Phosphatase 44 L (45-117) U/L Troponin I (0-0.045) ng/ml Total Protein 8.2 (6.4-8.2) gm/dl Albumin 1.7 L (3.4-5.0) gm/dl Globulin 6.5 H (2.5-4.0) gm/dl Albumin/Globulin Ratio 0.3 L (0.9-2) TSH (0.300-4.500) uIu/ml Specimen Hemolysis Urine Color Urine Appearance (Clear) Urine pH (4.5-7.5) Ur Specific [place] (1.000-1.030) Urine Protein (Negative) Urine Glucose (UA) (Negative) Urine Ketones (Negative) Urine Blood (Negative) Urine Nitrite (Negative) Urine Bilirubin (Negative) Urine Urobilinogen (Negative) Ur Leukocyte Esterase (Negative) Urine WBC (Auto) (0-5) /hpf Urine RBC (Auto) (0-4) /hpf U Hyaline Cast (Auto) (0-5) /lpf U Epithel Cells (Auto) (0-5) /lpf Urine Bacteria (Auto) (Negative) Granular Casts (0) /lpf Urine Yeast Leuk/Lym Flow Cyto Comm Blood Type Antibody Screen Crossmatch 06/27/18 Range/Units 11:59 WBC (4.8-10.8) K/uL RBC (4.7-6.1) M/uL Hgb (14.0-18.0) g/dL POC Hgb (14.0-18.0) g/dl Hct (42-52) % POC Hct (42-52) % MCV (80-100) fL MCH (25-34) pg MCHC (32-36) g/dL RDW Std Deviation (36.4-46.3) fL RDW Coeff of Tom (11.5-14.5) % Plt Count (130-400) K/uL MPV (7.4-10.4) fL Absolute Nucleated RBC (0-0) K/uL Nucleated RBC % (auto) % Neutrophils % (Manual) % Lymphocytes % (Manual) % Monocytes % (Manual) % Eosinophils % (Manual) % Basophils % (Manual) % Metamyelocytes % (Man) % Blast Cells % (Manual) % Neutrophils # (Manual) (1.4-6.5) K/uL Total Absolute Neuts (1.4-6.5) K/uL Lymphocytes # (Manual) (1.2-3.4) K/uL Total Abs Lymphocytes (1.2-3.4) K/uL Monocytes # (Manual) (0.11-0.59) K/uL Eosinophils # (Manual) (0-0.5) K/uL Basophils # (Manual) (0-0.2) K/uL Metamyelocytes # (Man) (0-0) K/uL Blast Cells # (Man) (0-0) K/uL Blood Smear Review Platelet Estimate (Normal) Polychromasia Rouleaux ABG pH (7.35-7.45) ABG pCO2 (35-46) mmHg ABG pO2 (80-95) mm/Hg ABG HCO3 (19-24) mmol/L ABG O2 Saturation (90-95) % ABG Base Excess (-9-1.8) mEq/L Rubén Test (Pos) Barometric Pressure mm/Hg Oxygen Given POC Sodium (135-144) mEq/L Sodium (136-145) mmol/L POC Potassium (3.3-5.0) mEq/L Potassium (3.5-5.1) mmol/L POC Chloride (101-112) mEq/L Chloride (98-107) mmol/L Carbon Dioxide (21-32) mmol/L POC Total CO2 (24-31) mEq/l Anion Gap (3-11) POC Anion Gap (16-25) mmol/L POC BUN (7-18) mg/dl BUN (7-18) mg/dl Creatinine (0.6-1.4) mg/dl POC Creatinine (0.6-1.3) mg/dl Est Cr Clr Drug Dosing ml/min Est GFR ( Amer) Est GFR (Non-Af Amer) BUN/Creatinine Ratio (10-20) Glucose (70-99) mg/dl POC Glucose 190 H (70-99) POC Glucose (other) (70-99) mg/dl Calcium (8.5-10.1) mg/dl POC Ioniz Calcium Olga Lidia (1.12-1.32) mmol/l Total Bilirubin (0.1-1) mg/dl AST (15-37) U/L ALT (12-78) U/L Alkaline Phosphatase (45-117) U/L Troponin I (0-0.045) ng/ml Total Protein (6.4-8.2) gm/dl Albumin (3.4-5.0) gm/dl Globulin (2.5-4.0) gm/dl Albumin/Globulin Ratio (0.9-2) TSH (0.300-4.500) uIu/ml Specimen Hemolysis Urine Color Urine Appearance (Clear) Urine pH (4.5-7.5) Ur Specific [place] (1.000-1.030) Urine Protein (Negative) Urine Glucose (UA) (Negative) Urine Ketones (Negative) Urine Blood (Negative) Urine Nitrite (Negative) Urine Bilirubin (Negative) Urine Urobilinogen (Negative) Ur Leukocyte Esterase (Negative) Urine WBC (Auto) (0-5) /hpf Urine RBC (Auto) (0-4) /hpf U Hyaline Cast (Auto) (0-5) /lpf U Epithel Cells (Auto) (0-5) /lpf Urine Bacteria (Auto) (Negative) Granular Casts (0) /lpf Urine Yeast Leuk/Lym Flow Cyto Comm Blood Type Antibody Screen Crossmatch Imaging Data Radiologist's Impression: Radiology results as stated below per my review and the radiologist's interpretation: XR chest 1V portable HISTORY: 78 years-old Male weakness acute weakness COMPARISON: Chest radiograph 01/19/2018 TECHNIQUE: Portable AP view of the chest FINDINGS: Cardiac silhouette is enlarged, unchanged. Stable mediastinal widening. No pneumothorax. Trace right pleural effusion with subsegmental right greater than left bibasilar opacities. Degenerative changes of the shoulders and spine. Partially imaged fusion hardware of the cervical spine. IMPRESSION: 1. Cardiomegaly without overt pulmonary edema. 2. Subsegmental bibasilar opacities suggest atelectasis or pneumonitis. 3. Trace right pleural effusion. The above report was generated using voice recognition software. It may contain grammatical, syntax or spelling errors. Electronically signed by: Alireza Rainey M.D. 06/26/2018 4:28 PM ECG Data Attestation: I personally reviewed and interpreted this ECG as follows: Indication: SOB/dyspnea Rate (beats per minute): 89 Rhythm: normal sinus Findings: no PVC and no ST elevation Blood Pressure Blood Pressure Findings: Low blood pressure Blood Pressure Disposition: further management by hospitalist ART Narrative I did perform a limited focused review of portions of the patient's old chart on the electronic medical record. The patient was hospitalized in December for aspiration, pneumonia, and sepsis. He was diaphoretic and confused yesterday with an oxygen level of 77% on 2L which went up to 90% O2 at 5L. A CBC was performed on June 22. I did evaluate the patient as noted above. The patient presents with generalized weakness currently. He had a episode of altered mental status last night with hypoxia. He is not hypoxic here on oxygen. IV access was established. The patient was placed on a continuous potline monitor. He is hypotensive. He was given normal saline IV. I did order and personally review the patient's 12-lead EKG and chest x-ray as described above. Twelve-lead EKG is unremarkable. Chest x-ray does not show pneumonia. He does have cardiomegaly. I did order and review the patient's blood work as noted in the electronic medical record. He is severely anemic. He also has thrombocytopenia. He also has acute kidney injury. ABG does not show hypercapnia. I did discuss the test results with the patient. I did obtain informed consent for blood transfusion. I did order 2 units of packed RBCs. Transfusion was started in the emergency department. I did reassess him multiple times. His blood pressure remained stable but on the low side. I did discuss case with the hospitalist and case management coordinator. Impression & Plan Symptomatic anemia, Thrombocytopenia, Leukocytosis, Hypotension, Acute kidney injury Critical Care Time I have personally spent 35 minutes of critical care time in the direct management of this patient. This includes bedside care, interpretation of diagnostic studies, and testing, discussion with consultants, patient, and family members, and other required patient management activities. This 35 minutes is in excess of all separately billable procedures. Critical Care Time: Yes Total Critical Care Time: 35 Discharge Plan Visit Data *Final* Discharge Date/Time: 06/26/18 19:27 Chief Complaint: Lethargic ED Provider: Darrian Dsouza Discharge Problem: Symptomatic anemia, Thrombocytopenia, Leukocytosis, Hypotension, Acute kidney injury Patient Disposition: Admitted As Inpatient Discharge Instructions Interventions: ED Discharge Assessment Last Done: 06/26/18 19:27 The scribe's documentation has been prepared under my direction and personally reviewed by me in its entirety. I confirm that the note above accurately reflects all work, treatment, procedures, and medical decision making performed by me.
--- NOTE | 2018-06-27 16:28 | Oncology Consultation ---
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 Person, lately in May 2018 he was seen by my partner Dr. Chester. - Because of his comorbid conditions and declining performed status, he was not consider for any kind of systemic treatment for acute myeloid leukemia over the last one year. - He is having periodic CBCD checkup and blood transfusion as needed. - Presently he is at [facility]. Admitted for symptomatic anemia with hemoglobin around 5 g/dL, elevated white blood cell count and increasing blast count noted in the blood which is expected in his case. Thrombocytopenia is also noted. No obvious bleeding from any sites. He received 2 units of PRBC. Overall for the last one year he has done well other than requiring blood transfusion, he is not a candidate for any kind of systemic treatment, expecting further change in the blood counts like rise in the white blood cell count and blast count, drop in the hemoglobin and platelet count, may require blood and platelet as needed. We should try to keep the hemoglobin level about 7 to 8 g/dL, platelet count over 10,000. He should not be on any anticoagulant treatment. I also spoke with the hospitalist about his case, will consider for supportive several treatment. Overall prognosis remains poor. 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 Person, lately in May 2018 he was seen by my partner Dr. Chester. - Because of his comorbid conditions and declining performed status, he was not consider for any kind of systemic treatment for acute myeloid leukemia over the last one year. - He is having periodic CBCD checkup and blood transfusion as needed. - Presently he is at [facility]. He is admitted on 06/26/2018 because of hypoxemia in the group home, when he came in, hemoglobin level was around 5.1 g/dL, received 2 units of PRBC and now admitted for further evaluation management. I saw him at bedside, he is sitting comfortably in the bed, receiving nasal can supplement oxygen, he denies any chest pain or back pain or bone pain, has no increasing leg edema, no obvious bleeding from any sites, some bruising noted Allergies Allergy/AdvReac Type Severity Reaction Status Date / Time amoxicillin Allergy Intermediate RASH HEAD Verified 06/26/18 16:40 TO TOE clavulanic acid Allergy Intermediate RASH HEAD Verified 06/26/18 16:40 TO TOE vancomycin Allergy Intermediate RASH Verified 06/26/18 16:40 cefuroxime Allergy Unknown UNKNOWN Verified 06/26/18 16:40 Home Medications Home Medications Medication Instructions Recorded Confirmed Type acetaminophen 650 mg PO QID PRN #0 11/25/16 06/08/18 History aspirin [Aspir-81] 81 mg PO DAILY #0 11/25/16 04/19/18 History polyethylene glycol 3350 17 packet PO DAILY #0 11/25/16 06/08/18 History ranitidine HCl 150 mg PO BID #0 11/25/16 06/08/18 History ondansetron HCl 4 mg PO QID PRN #10 tab 03/26/17 04/19/18 History levothyroxine 50 mcg PO DAILY 30 Days #0 tab 04/27/17 04/19/18 History sodium phosphates 118 ml RI DAILY #0 05/18/17 04/19/18 History tizanidine 4 mg PO TID #0 tab 09/21/17 04/19/18 History duloxetine 30 mg PO DAILY 30 Days #30 cap 11/17/17 04/19/18 History lansoprazole 15 mg PO DAILY #0 cap 11/17/17 04/19/18 History silver sulfadiazine 1 applic TOPICAL DAILY 7 Days #50 g 01/19/18 04/19/18 History bisacodyl [Dulcolax (bisacodyl)] 10 mg RI DAILY 06/08/18 06/08/18 History camphor-menthol [Men-Phor] 1 applic TOPICAL BID PRN 06/08/18 06/08/18 History magnesium hydroxide [Milk of 30 ml PO DAILY PRN 06/08/18 06/08/18 History Magnesia] menthol [Cough Drops] 06/08/18 History morphine 5 mg PO Q2H 06/08/18 06/08/18 History multivitamin 1 tab PO DAILY 06/08/18 06/08/18 History ondansetron HCl [Zofran] 8 mg PO TID PRN 06/08/18 06/08/18 History promethazine [Phenergan] 25 mg RI Q4H PRN 06/08/18 06/08/18 History sodium chloride [Saline Nasal] 1 spray INTRANASAL Q3H PRN 06/08/18 06/08/18 History gabapentin 200 mg PO TID 06/26/18 06/26/18 History hydroxyzine pamoate 25 mg PO Q6H PRN 06/26/18 06/26/18 History insulin glargine [Lantus U-100 10 unit SUBCUT DAILY 06/26/18 06/26/18 History Insulin] ipratropium-albuterol 3 ml INHALATION Q4H 06/26/18 06/26/18 History oxycodone 5 mg PO QID PRN 06/26/18 06/26/18 History Patient History Medical History Anxiety (Acute) COPD (chronic obstructive pulmonary disease) (Acute) CVA (cerebral vascular accident) (Acute) Cancer (Acute) Dysphagia (Acute) Eating disorder (Acute) Gastrointestinal disorder (Acute) Gout (Acute) Kidney disease (Acute) Male genitourinary symptoms (Acute) Neurogenic bladder (Acute) Neurogenic bowel (Acute) Neurological disorder (Acute) PEG (percutaneous endoscopic gastrostomy) adjustment/replacement/removal (Acute) Reflux gastritis (Acute) TIA (transient ischemic attack) (Acute) Thyroid disease (Acute) Surgical History History of appendectomy (Acute) Social History marital status: Current Living Situation: Snf Other Information That Helps Us Care for You: No Feels Safe at Home: Yes Safety Concerns: Feels Safe At This Time Smoking Status: Never smoker Hx Alcohol Use: No Hx Substance Use: No Beliefs That Will Affect Care: None Communication Ability: Effective Review of Systems REVIEW OF SYSTEMS:, I could not obtain much history from him as he was saying yes and no other questions. In general he does not have any new pulmonary symptoms, no new ENT symptoms, no trouble swallowing but has poor appetite and poor oral intake, some coughing present when I was at bedside, no fever, no obvious bleeding from any sites., Physical Exam 2 Vital Signs (Past 24 Hours): Last Vital Signs Temp 36.6 C 06/27/18 15:47 Pulse 72 06/27/18 15:47 Resp 16 06/27/18 15:47 BP 90/57 L 06/27/18 15:47 Pulse Ox 96 06/27/18 15:47 On exam: - Alert and oriented x3, thin built man, not in any distress. He is on oxygen treatment. - HEENT: no icterus, pallor noted, - Neck: No palpable cervical lymphadenopathy. - Chest: clear to auscultation. - Abdomen: soft, nontender, no hepatomegaly, no splenomegaly. - Extremities: no finger clubbing, no leg edema. Some bruising noted in the upper extremities. Results & Data Laboratory Results Blood workup done on 06/26/2018: - WBC 35,200, H&H of 5.1/15.6, MCV 94, Platelet count of 28,000, increased blast noted in the blood. - WBC 39,000, H&H of 7.1/21.4, Platelet count of 20,000 (06/27/2018) - BUN/creatinine: 55/2.1, normal liver function test. - Albumin level 1.7. - Urine culture > Negative blood culture negative so far. Diagnostic Findings Chest x-ray (06/26/2018) - Cardiomegaly, bibasilar atelectatic changes.
--- NOTE | 2018-06-27 18:34 | Hospitalist Progress Note ---
Date of Service June 27, 2018 Assessment & Plan (1) AML (acute myeloblastic leukemia): Acute Myeloid Leukemia -As per outpatient oncology note Dr. 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 and deemed to be a poor candidate for chemotherapy with general poor prognosis -as per [facility] labs 06/22/18 WBC 34 K with Hgb 6.7 and Platelet 33 K -as per transfer papers, patient may have had symptoms of desaturation or diaphoresis at the [facility] -sent to ED on 06/26/18 and found to have WBC 35K and Hgb 5.1 and Platelet 28 K -patient received 2 units or PRBC as per ED doctor; follow up Hgb on 06/27/18 is 7.1 and platelets of 20K -will try to maintain Hgb above 7 and platelets above 10 K; additional PRBCs have been ordered on hold -elevated WBC may likley be due to AML ; as of 06/27/18 Patient's WBC was uptrending and cefepime was started. his admission blood culture with 1 or 2 bottles returning as gram positive cocci. Allergies reported to Ceftin, Augmentin, Vancomycin, Amoxillins Acute kidney Injury on Chronic kidney disease -continue IV fluids, creatinine is downtrending somewhat Right buttock excoriations -wound care, minimize pressure on right buttock History of teraplegia, cerebral palsy, neurogenic bladder, neurogenic bowel as per outpatient records -PT/OT as needed -bowel regimen -duloxetine, gabapentin, tizanidine Type 2 diabetes on senior care insulin Lantus 10 units BID fingerstick glucose with sliding scale aspart History of Hypothyroidism continue home dose Levothyroxine 50 mcg daily Code Status: DNI/DNR as per discussion with the patient Family Contacts sister Alison [phone] nephew Rai [phone] Subjective Patient seen and examined at bedside and again in evening. Patient denies shortness of breath or chest pain or abdominal pain. Patient denies vomiting. Denies lightheadedness Had discussion with patient and his family about poor overall prognosis. Will continue to treat patient with transfusions as needed. Patient's WBC was uptrending and cefepime was started. his admission blood culture with 1 or 2 bottles returning as gram positive cocci. Physical Exam 2 Vital Signs (Past 24 Hours): Last Vital Signs Temp 36.6 C 06/27/18 15:47 Pulse 72 06/27/18 15:47 Resp 16 06/27/18 15:47 BP 90/57 L 06/27/18 15:47 Pulse Ox 96 06/27/18 15:47 Physical Exam: General: no acute distress Eyes: EOMI Lungs: clear to asuculation bilaterally Heart: regular rate Abdomen: soft, nontender, positive bowel sounds Extremities: chronic deviation of right hand at the wrist and chronic internal rotation of the leg foot at the ankle
[2018-06-28] MEDS: LEVOTHYROXINE SODIUM 50 MCG TABLET PO SCH (05:41)
[2018-06-28] MEDS: SODIUM CHLORIDE 0.9% 1000ML 1,000 ML IV SCH ×2 (07:58→20:27)
[2018-06-28] MEDS: INSULIN ASPART 100 UNITS/ML 3 ML PEN SC SCH ×4 (08:05→20:25)
[2018-06-28] MEDS: INSULIN GLARGINE SOLOSTAR 100 UNITS/ML 3 ML PEN SC SCH (08:06)
[2018-06-28 08:09] LABS: Mean Corpuscular Hgb Conc 33.3 g/dL (32-36); Nucleated RBC # (auto) 0.28 K/uL (0-0); Nucleated RBC % (auto) 0.9 %; Platelet Count 21 K/uL (130-400); RDW Coefficient of Variation 17.4 % (11.5-14.5); RDW Standard Deviation 54.1 fL (36.4-46.3); Red Blood Count 2.58 M/uL (4.7-6.1)
[2018-06-28 08:25] LABS: Albumin Level 1.4 gm/dl (3.4-5.0); BUN Creatinine Ratio 23.7 (10-20); Calcium 7.7 mg/dl (8.5-10.1); Creatinine Clr Calc Pharmacy 32.1 ml/min; Est GFR (African American) 40.4; Est GFR (Non-African American) 34.8; Potassium 4.1 mmol/L (3.5-5.1)
[2018-06-28 08:31] LABS: Albumin Globulin Ratio 0.2 (0.9-2); Bilirubin,Total 0.2 mg/dl (0.1-1); Globulin 5.7 gm/dl (2.5-4.0); Total Protein 7.1 gm/dl (6.4-8.2)
[2018-06-28 08:50] LABS: Anisocytosis Present; Spherocytes 1+
[2018-06-28 08:51] LABS: ALC (manual) 5.42 K/uL (1.2-3.4); Blast # (manual) 22.73 K/uL (0-0); Blast Cells % (manual) 75.5 %; Lymphocytes # (manual) 5.42 K/uL (1.2-3.4); Monocytes # (manual) 1.72 K/uL (0.11-0.59); Monocytes % (manual) 5.7 %; Neutrophils % (manual) 0.8 %
[2018-06-28] MEDS: GABAPENTIN 100 MG CAP PO SCH ×3 (09:04→20:24)
[2018-06-28] MEDS: TIZANIDINE HCL 4 MG TABLET PO SCH ×3 (09:04→20:25)
[2018-06-28] MEDS: DULOXETINE HCL 30 MG CAP PO SCH (09:04)
[2018-06-28] MEDS: POLYETHYLENE (MIRALAX) 17 GM PACK PO SCH (09:04)
[2018-06-28] MEDS: CEFEPIME 2,000 MG in SYRINGE 7.5 ML IV SCH (12:15)
--- NOTE | 2018-06-28 16:26 | Hospitalist Progress Note ---
Date of Service June 28, 2018 Assessment & Plan (1) AML (acute myeloblastic leukemia): Acute Myeloid Leukemia with Leukocytosis, Anemia, Thrombocytopenia being worked up and treated for possible bacteremia as cause of leukocytosis; alternative differential to the leukocytosis is from the Acute Myeloid Leukemia progression -As per outpatient oncology note Dr. 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 and deemed to be a poor candidate for chemotherapy with general poor prognosis -as per care home labs 06/22/18 WBC 34 K with Hgb 6.7 and Platelet 33 K -as per transfer papers, patient may have had symptoms of desaturation or diaphoresis at the care home -sent to ED on 06/26/18 and found to have WBC 35K and Hgb 5.1 and Platelet 28 K -patient received 2 units or PRBC as per ED doctor; follow up Hgb on 06/27/18 is 7.1 and platelets of 20K -will try to maintain Hgb above 7 and platelets above 10 K; additional PRBCs have been ordered on hold -as of 06/27/18 Patient's WBC was uptrending to 39K and cefepime was started. his admission blood culture with 1 or 2 bottles returning as gram positive cocci -06/28/18 WBC downtrended to 30 K, the gram positive cocci returned as coag negative staph that is not lugdenesis; continue cefepime for now; blood cultures to be repeated on 06/28/18 and infectious disease consult requested; Hgb 8 and Platelets 21 K Allergies reported to Ceftin, Augmentin, Vancomycin, Amoxillins Acute kidney Injury on Chronic kidney disease stage III -creatinine is downtrending, continue IV fluids at 80 cc/hr Right buttock excoriations -wound care, minimize pressure on right buttock History of teraplegia, cerebral palsy, neurogenic bladder, neurogenic bowel as per outpatient records -PT/OT -bowel regimen -duloxetine, gabapentin, tizanidine Type 2 diabetes on snf insulin Lantus 10 units BID fingerstick glucose with sliding scale aspart History of Hypothyroidism continue home dose Levothyroxine 50 mcg daily Code Status: DNI/DNR as per discussion with the patient Family Contacts sister Alison [phone] nephew Rai [phone] Subjective Patient seen and examined at bedside Patient denies shortness of breath or chest pain or abdominal pain. Patient denies vomiting. Denies lightheadedness Had discussion with patient about re-drawing blood cultures Physical Exam 2 Vital Signs (Past 24 Hours): Last Vital Signs Temp 36.8 C 06/28/18 15:16 Pulse 79 06/28/18 15:16 Resp 19 06/28/18 15:16 BP 94/60 L 06/28/18 15:16 Pulse Ox 96 06/28/18 15:16 Physical Exam: General: no acute distress Eyes: EOMI Lungs: clear to asuculation bilaterally Heart: regular rate Abdomen: soft, nontender, positive bowel sounds Extremities: chronic deviation of right hand at the wrist and chronic internal rotation of the leg foot at the ankle
[2018-06-29] MEDS: LEVOTHYROXINE SODIUM 50 MCG TABLET PO SCH (06:12)
[2018-06-29 06:31] LABS: BUN Creatinine Ratio 19.8 (10-20); Calcium 7.6 mg/dl (8.5-10.1); Creatinine Clr Calc Pharmacy 33.8 ml/min; Est GFR (African American) 42.9; Potassium 3.8 mmol/L (3.5-5.1)
[2018-06-29 07:12] LABS: Hematocrit (blood only) 26.3 % (42-52); Hemoglobin 8.5 g/dL (14.0-18.0); Mean Corpuscular Hgb Conc 32.3 g/dL (32-36); Mean Corpuscular Volume 94.3 fL (80-100); Nucleated RBC # (auto) 0.21 K/uL (0-0); Nucleated RBC % (auto) 0.6 %; Platelet Count 23 K/uL (130-400); RDW Coefficient of Variation 17.5 % (11.5-14.5); RDW Standard Deviation 55.5 fL (36.4-46.3); Red Blood Count 2.79 M/uL (4.7-6.1); White Blood Count 32.72 K/uL (4.8-10.8)
[2018-06-29 07:15] LABS: ALC (manual) 6.31 K/uL (1.2-3.4); Blast # (manual) 22.67 K/uL (0-0); Blast Cells % (manual) 69.3 %; Eosinophils # (manual) 0.29 K/uL (0-0.5); Lymphocytes # (manual) 6.31 K/uL (1.2-3.4); Lymphocytes % (manual) 19.3 %; Monocytes % (manual) 6.1 %; Myelocytes # (manual) 0.29 K/uL (0-0); Myelocytes % (manual) 0.9 %; Neutrophils % (manual) 3.5 %; Polychromasia 1+
[2018-06-29] MEDS: INSULIN ASPART 100 UNITS/ML 3 ML PEN SC SCH ×4 (08:21→20:10)
[2018-06-29] MEDS: DULOXETINE HCL 30 MG CAP PO SCH (08:23)
[2018-06-29] MEDS: TIZANIDINE HCL 4 MG TABLET PO SCH ×3 (08:23→20:12)
[2018-06-29] MEDS: GABAPENTIN 100 MG CAP PO SCH ×2 (08:23→14:53)
[2018-06-29] MEDS: POLYETHYLENE (MIRALAX) 17 GM PACK PO SCH (08:24)
[2018-06-29] MEDS: INSULIN GLARGINE SOLOSTAR 100 UNITS/ML 3 ML PEN SC SCH (08:24)
[2018-06-29] MEDS: SODIUM CHLORIDE 0.9% 1000ML 1,000 ML IV SCH (08:32)
--- NOTE | 2018-06-29 10:28 | Infectious Disease Consult ---
Date of Consultation June 29, 2018 Assessment & Plan (1) Positive blood culture: suspect skin contaminant, could follow off of abx from ID standpoint. History of Present Illness Attending Physician: Keaton Tsang MD pt admitted from sn[facility] with low O2 sats, blood cutlures done in ER as part of intial workup - 1/2 sets now + dip dyer. has been on cefepime. has AML, heme onc following. wbc today 32, was 39 on admission. cxr in ER negative. repeat blood cultures from 06/28 pending. UA negative. pt nonverbal on my exam. uto ros. ID asked to eval re + blood cultures. Allergies Allergy/AdvReac Type Severity Reaction Status Date / Time amoxicillin Allergy Intermediate RASH HEAD Verified 06/26/18 16:40 TO TOE clavulanic acid Allergy Intermediate RASH HEAD Verified 06/26/18 16:40 TO TOE vancomycin Allergy Intermediate RASH Verified 06/26/18 16:40 cefuroxime Allergy Unknown UNKNOWN Verified 06/26/18 16:40 Home Medications Home Medications Medication Instructions Recorded Confirmed Type acetaminophen 650 mg PO QID PRN #0 11/25/16 06/08/18 History aspirin [Aspir-81] 81 mg PO DAILY #0 11/25/16 04/19/18 History polyethylene glycol 3350 17 packet PO DAILY #0 11/25/16 06/08/18 History ranitidine HCl 150 mg PO BID #0 11/25/16 06/08/18 History ondansetron HCl 4 mg PO QID PRN #10 tab 03/26/17 04/19/18 History levothyroxine 50 mcg PO DAILY 30 Days #0 tab 04/27/17 04/19/18 History sodium phosphates 118 ml GA DAILY #0 05/18/17 04/19/18 History tizanidine 4 mg PO TID #0 tab 09/21/17 04/19/18 History duloxetine 30 mg PO DAILY 30 Days #30 cap 11/17/17 04/19/18 History lansoprazole 15 mg PO DAILY #0 cap 11/17/17 04/19/18 History silver sulfadiazine 1 applic TOPICAL DAILY 7 Days #50 g 01/19/18 04/19/18 History bisacodyl [Dulcolax (bisacodyl)] 10 mg GA DAILY 06/08/18 06/08/18 History camphor-menthol [Men-Phor] 1 applic TOPICAL BID PRN 06/08/18 06/08/18 History magnesium hydroxide [Milk of 30 ml PO DAILY PRN 06/08/18 06/08/18 History Magnesia] menthol [Cough Drops] 06/08/18 History morphine 5 mg PO Q2H 06/08/18 06/08/18 History multivitamin 1 tab PO DAILY 06/08/18 06/08/18 History ondansetron HCl [Zofran] 8 mg PO TID PRN 06/08/18 06/08/18 History promethazine [Phenergan] 25 mg GA Q4H PRN 06/08/18 06/08/18 History sodium chloride [Saline Nasal] 1 spray INTRANASAL Q3H PRN 06/08/18 06/08/18 History gabapentin 200 mg PO TID 06/26/18 06/26/18 History hydroxyzine pamoate 25 mg PO Q6H PRN 06/26/18 06/26/18 History insulin glargine [Lantus U-100 10 unit SUBCUT DAILY 06/26/18 06/26/18 History Insulin] ipratropium-albuterol 3 ml INHALATION Q4H 06/26/18 06/26/18 History oxycodone 5 mg PO QID PRN 06/26/18 06/26/18 History Patient History Medical History Anxiety (Acute) COPD (chronic obstructive pulmonary disease) (Acute) CVA (cerebral vascular accident) (Acute) Cancer (Acute) Dysphagia (Acute) Eating disorder (Acute) Gastrointestinal disorder (Acute) Gout (Acute) Kidney disease (Acute) Male genitourinary symptoms (Acute) Neurogenic bladder (Acute) Neurogenic bowel (Acute) Neurological disorder (Acute) PEG (percutaneous endoscopic gastrostomy) adjustment/replacement/removal (Acute) Reflux gastritis (Acute) TIA (transient ischemic attack) (Acute) Thyroid disease (Acute) Surgical History History of appendectomy (Acute) Social History marital status: Current Living Situation: Jail Other Information That Helps Us Care for You: No Feels Safe at Home: Yes Safety Concerns: Feels Safe At This Time Smoking Status: Never smoker Hx Alcohol Use: No Hx Substance Use: No Beliefs That Will Affect Care: None Communication Ability: Effective Review of Systems unable to obtain from pt, obtained from chart Physical Exam 2 Vital Signs (Past 24 Hours): Last Vital Signs Temp 36.7 C 06/29/18 07:24 Pulse 90 06/29/18 07:24 Resp 18 06/29/18 07:24 BP 96/62 L 06/29/18 07:24 Pulse Ox 97 06/29/18 07:24 Constitutional: + lethargic ENMT: dmm Neck: normal visual inspection Respiratory: Auscultation: + diminished lung sounds Cardiovascular: RRR, no murmur, no edema Gastrointestinal (Abdomen): normal bowel sounds, soft, nontender, no hepatosplenomegaly Skin: no rashes, warm and dry Psychiatric: lethargic, non verbal on my exam Results & Data Laboratory Results Microbiology 06/26/18 18:40 Blood Blood Culture - Preliminary Coag neg staph not lugdunensis 06/26/18 19:15 Urine,Clean Catch Urine Culture - Final More than three types of organisms present, all moderate counts mixed probable skin taye. No further identifications or sensitivities to follow. 06/26/18 18:35 Blood Blood Culture - Preliminary No growth to date.
[2018-06-29 13:07] LABS: NEO FLOW Lymph/Leuk Stnd SEE NEO MISC
[2018-06-29] MEDS: CALAMINE/PRAMOXINE LOTION 180 APPLN/180 ML BTL EXT SCH (13:10)
--- NOTE | 2018-06-29 16:28 | Ultrasound Report ---
BILATERAL LOWER EXTREMITY VENOUS DOPPLER HISTORY: Acute pain and swelling of the bilateral lower extremities rule out DVT COMPARISON STUDY: Duplex venous Doppler study 09/23/2015. FINDINGS: There is normal compressibility, flow, and augmentation within the bilateral lower extremit y deep venous systems. Calf vessels are suboptimally visualized secondary to patient positioning. Mil d subcutaneous edema of the bilateral lower legs. IMPRESSION: No sonographic evidence of deep venous thrombosis within the right or left lower extremity. Electronically signed by: Alireza Rainey M.D. 06/29/2018 4:26 PM
[2018-06-29] MEDS ORDERED: SODIUM CHLORIDE 0.9% 1000ML 250 ML IV ONE (16:58)
[2018-06-29] MEDS ORDERED: DiphenhydrAMINE 12.5 MG in SYRINGE 0 ML IV STA (16:58)
--- NOTE | 2018-06-29 16:58 | Hospitalist Progress Note ---
Date of Service June 29, 2018 Assessment & Plan (1) AML (acute myeloblastic leukemia): Acute Myeloid Leukemia with Leukocytosis, Anemia, Thrombocytopenia being worked up and treated for possible bacteremia as cause of leukocytosis; alternative differential to the leukocytosis is from the Acute Myeloid Leukemia progression -As per outpatient oncology note Dr. 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 and deemed to be a poor candidate for chemotherapy with general poor prognosis -as per [facility] labs 06/22/18 WBC 34 K with Hgb 6.7 and Platelet 33 K -as per transfer papers, patient may have had symptoms of desaturation or diaphoresis at the retirement -sent to ED on 06/26/18 and found to have WBC 35K and Hgb 5.1 and Platelet 28 K -patient received 2 units or PRBC as per ED doctor; follow up Hgb on 06/27/18 is 7.1 and platelets of 20K -will try to maintain Hgb above 7 and platelets above 10 K; additional PRBCs have been ordered on hold -as of 06/27/18 Patient's WBC was uptrending to 39K and cefepime was started. his admission blood culture with 1 or 2 bottles returning as gram positive cocci -06/28/18 WBC downtrended to 30 K on cefepime, the gram positive cocci returned as coag negative staph that is not lugdenesis; continue cefepime for now; blood cultures to be repeated on 06/28/18 and infectious disease consult requested; Hgb 8 and Platelets 21 K -06/29/18 WBC 33 K, Hgb 8.5 and Platelets 23 K; cefipime Antibiotic held today to try to monitor off antibiotics as Infectious Disease consult suspects that the initial blood culture of coag negative staph is a contaminant, awaiting results of repeat cultures Allergies reported to Ceftin, Augmentin, Vancomycin, Amoxillins giving calamine lotion to hands and benadryl x 1 for itch Acute kidney Injury on Chronic kidney disease stage III -creatinine is downtrending after IV fluids Relative hypotension -partly due to general supine position on bed, standing IV fluids have been held earlier on 06/29/18 to avoid edema, a bolus of 250 cc of fluids ordered for 06/19/18 Right buttock excoriations -wound care, minimize pressure on right buttock History of teraplegia, cerebral palsy, neurogenic bladder, neurogenic bowel as per outpatient records -PT/OT -bowel regimen -duloxetine, gabapentin, tizanidine Type 2 diabetes on intermediate insulin Lantus 10 units BID fingerstick glucose with sliding scale aspart History of Hypothyroidism continue home dose Levothyroxine 50 mcg daily Code Status: DNI/DNR as per discussion with the patient Family Contacts sister Alison [phone] nephew Rai [phone] Subjective Antibiotic held today to try to monitor off antibiotics as Infectious Disease consult suspects that the admission blood culture of coag negative staph is a contaminant Patient had on this admission 80 cc/hr normal saline running because of acute kidney injury. Fluids were held because JULITA resolving and because more leg and hand edema. No DVT of lower extremities on ultrasound However, measurements of blood pressures recently when off fluids are recorded to be less than 90/60 which is partially affected by patient's posture of laying on the bed Patient seen and examined at bedside Patient denies shortness of breath or chest pain or abdominal pain. Patient denies vomiting. Denies lightheadedness. Mental status has been baseline He complains of itch or the hands and feet Physical Exam 2 Vital Signs (Past 24 Hours): Last Vital Signs Temp 36.6 C 06/29/18 15:08 Pulse 76 06/29/18 15:08 Resp 18 06/29/18 15:08 BP 80/43 L 06/29/18 15:08 Pulse Ox 95 06/29/18 15:08 Physical Exam: General: no acute distress Eyes: EOMI Lungs: clear to asuculation bilaterally Heart: regular rate Abdomen: soft, nontender, positive bowel sounds Extremities: chronic deviation of right hand at the wrist and chronic internal rotation of the leg foot at the ankle Skin: right leg more edematous the left leg. hands with some swelling
[2018-06-29] MEDS ORDERED: DiphenhydrAMINE HCL 50 MG/ML VIAL IV STA (17:14)
[2018-06-29] MEDS ORDERED: MIDODRINE HCL 2.5 MG TAB PO STA (19:07)
[2018-06-29] MEDS ORDERED: SODIUM CHLORIDE 0.9% 1000ML 1,000 ML IV SCH (19:15)
[2018-06-30] MEDS: LEVOTHYROXINE SODIUM 50 MCG TABLET PO SCH (05:35)
[2018-06-30 07:42] LABS: Hematocrit (blood only) 24.7 % (42-52); Hemoglobin 8.3 g/dL (14.0-18.0); Mean Corpuscular Hgb Conc 33.6 g/dL (32-36); Mean Corpuscular Volume 93.2 fL (80-100); Nucleated RBC # (auto) 0.21 K/uL (0-0); Nucleated RBC % (auto) 0.6 %; Platelet Count 25 K/uL (130-400); RDW Coefficient of Variation 17.4 % (11.5-14.5); Red Blood Count 2.65 M/uL (4.7-6.1); White Blood Count 37.44 K/uL (4.8-10.8)
[2018-06-30 08:23] LABS: ALC (manual) 9.36 K/uL (1.2-3.4); Blast # (manual) 25.08 K/uL (0-0); Lymphocytes # (manual) 9.36 K/uL (1.2-3.4); Monocytes % (manual) 1.6 %; RBC Morphology Unremarkable
[2018-06-30] MEDS: DULOXETINE HCL 30 MG CAP PO SCH (08:23)
[2018-06-30] MEDS: CALAMINE/PRAMOXINE LOTION 180 APPLN/180 ML BTL EXT SCH (08:23)
[2018-06-30] MEDS: POLYETHYLENE (MIRALAX) 17 GM PACK PO SCH (08:25)
[2018-06-30] MEDS: INSULIN ASPART 100 UNITS/ML 3 ML PEN SC SCH ×2 (08:26→13:06)
[2018-06-30] MEDS: TIZANIDINE HCL 4 MG TABLET PO SCH ×2 (08:26→13:31)
[2018-06-30] MEDS: INSULIN GLARGINE SOLOSTAR 100 UNITS/ML 3 ML PEN SC SCH (08:27)
[2018-06-30] MEDS: MIDODRINE HCL 2.5 MG TAB PO SCH ×2 (09:10→13:31)
--- NOTE | 2018-06-30 12:02 | Hospitalist Progress Note ---
Date of Service June 30, 2018 Assessment & Plan (1) AML (acute myeloblastic leukemia): Acute Myeloid Leukemia with Leukocytosis, Anemia, Thrombocytopenia being worked up and treated for possible bacteremia as cause of leukocytosis; alternative differential to the leukocytosis is from the Acute Myeloid Leukemia progression -As per outpatient oncology note Dr. 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 and deemed to be a poor candidate for chemotherapy with general poor prognosis -as [facility] 06/22/18 WBC 34 K with Hgb 6.7 and Platelet 33 K -as per transfer papers, patient may have had symptoms of desaturation or [facility]aphoresis at the [facility] -sent to ED on 06/26/18 and found to have WBC 35K and Hgb 5.1 and Platelet 28 K -patient received 2 units or PRBC as per ED doctor; follow up Hgb on 06/27/18 is 7.1 and platelets of 20K -will try to maintain Hgb above 7 and platelets above 10 K; additional PRBCs have been ordered on hold -as of 06/27/18 Patient's WBC was uptrending to 39K and cefepime was started. his admission blood culture with 1 or 2 bottles returning as gram positive cocci -06/28/18 WBC downtrended to 30 K on cefepime, the gram positive cocci returned as coag negative staph that is not lugdenesis; continue cefepime for now; blood cultures to be repeated on 06/28/18 and infectious disease consult requested; Hgb 8 and Platelets 21 K -06/29/18 WBC 33 K, Hgb 8.5 and Platelets 23 K; cefipime Antibiotic held today to try to monitor off antibiotics as Infectious Disease consult suspects that the initial blood culture of coag negative staph is a contaminant -06/30/18: WBC 8.3 and thrombocytopenia 25K. WBC continues to be elevated as 37 K which is generally unchanged from admission WBC and in recent outpatient labs. A trial of antibiotics of cefepime was given but then stopped as admission blood culture was considered to be a contaminant and follow up blood culture with no growth to date Allergies reported to Ceftin, Augmentin, Vancomycin, Amoxillins Acute kidney Injury on Chronic kidney disease stage III -JULITA has resolved Relative hypotension -partly due to general supine position on bed, standing IV fluids have been held earlier on 06/29/18 to avoid edema, a bolus of 250 cc of fluids ordered for 06/19/18, and then with 50 cc/hr of normal saline at night with BP at or above slightly 90/60s, when off IV fluids the blood pressure is 82/51 but patient is without symptoms Right buttock excoriations -wound care, minimize pressure on right buttock History of teraplegia, cerebral palsy, neurogenic bladder, neurogenic bowel as per outpatient records -bowel regimen -duloxetine, gabapentin, tizanidine Type 2 diabetes on detention insulin Lantus 10 units BID fingerstick glucose with sliding scale aspart History of Hypothyroidism continue home dose Levothyroxine 50 mcg daily Code Status: DNI/DNR as per discussion with the patient Family Contacts sister Alison [phone] nephew Rai [phone] Discharge Diagnosis Acute myeloid leukemia not having achieved remission, Leukocytosis, Anemia, Thrombocytopenia, Acute Kidney Injury, Chronic Kidney Disease stage 3, relative hypotension, Type 2 diabetes mellitus without complications on detention insulin Discharge Instructions On this admission, patient received 2 units of PRBC with stable anemia currently WBC 8.3 and thrombocytopenia 25K. WBC continues to be elevated as 37 K which is generally unchanged from admission WBC and in recent outpatient labs. A trial of antibiotics of cefepime was given but then stopped as admission blood culture was considered to be a contaminant and follow up blood culture with no growth to date Patient was evaluated by infectiouse disease consult and oncology consult as inpatient Patient has relative hypotension off IV fluids. Have discussed with patient and family that despite the White blood cell counts in the 30 thousands and relative hypotension that patient's goals of care is tor return to [facility]. Patient has been mentating well at baseline even when blood pressure is recorded to be less than 90/60. The goals of care is to have patient return to hospital only if symptomatic (in other words, if blood pressure low and patient is without symptoms then this would not immediately require hospital evaluation) and to give blood transfusion if Hgb less than 7 and if platelet is less than 10 K. Patient's code status continues to be DNR and DNI and his wishes are to return to [facility] and his family is in agreement On return, patient should avoid aspirin being of low platelets On return, patient should be off gabapentin being this can cause low blood pressure. Patient may take midrodrine 2.5 mg TID for the next 5 days Patient should be evaluated by primary care doctor in 1 week. Subjective Patient with blood pressure of 82/51 off IV fluids. Is asymptomatic. Denies lightheadedness. Denies headache. He reports that he feels great. denies chest pain or abdominal pain. Denies shortness of breath. Discussed with patient and family members sister Alison [phone] on nephew Rai [phone] about the hospital course and goals of care which is summarized as below and as part of discharge instructions to be sent with him back to [facility] "Discharge Instructions On this admission, patient received 2 units of PRBC with stable anemia currently WBC 8.3 and thrombocytopenia 25K. WBC continues to be elevated as 37 K which is generally unchanged from admission WBC and in recent outpatient labs. A trial of antibiotics of cefepime was given but then stopped as admission blood culture was considered to be a contaminant and follow up blood culture with no growth to date Patient was evaluated by infectiouse disease consult and oncology consult as inpatient Patient has relative hypotension off IV fluids. Have discussed with patient and family that despite the White blood cell counts in the 30 thousands and relative hypotension that patient's goals of care is tor return to [facility]. Patient has been mentating well at baseline even when blood pressure is recorded to be less than 90/60. The goals of care is to have patient return to hospital only if symptomatic (in other words, if blood pressure low and patient is without symptoms then this would not immediately require hospital evaluation) and to give blood transfusion if Hgb less than 7 and if platelet is less than 10 K. Patient's code status continues to be DNR and DNI and his wishes are to return to [facility] and his family is in agreement On return, patient should avoid aspirin being of low platelets On return, patient should be off gabapentin being this can cause low blood pressure. Patient may take midrodrine 2.5 mg TID for the next 5 days Patient should be evaluated by primary care doctor in 1 week." Physical Exam 2 Vital Signs (Past 24 Hours): Last Vital Signs Temp 36.8 C 06/30/18 07:26 Pulse 64 06/30/18 10:01 Resp 18 06/30/18 07:26 BP 82/51 L 12/29/18 10:01 Pulse Ox 95 06/30/18 07:26 Physical Exam: General: no acute distress Eyes: EOMI Lungs: clear to asuculation bilaterally Heart: regular rate Abdomen: soft, nontender, positive bowel sounds Extremities: chronic deviation of right hand at the wrist and chronic internal rotation of the leg foot at the ankle
--- NOTE | 2018-06-30 12:07 | Discharge Summary ---
Date of Service June 30, 2018 Admission HPI Per Admitting Provider 78 year old M resident of assisted -As per outpatient oncology note Dr. 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 and deemed to be a poor candidate for chemotherapy with general poor prognosis -as per assisted labs 06/22/18 WBC 34 K with Hgb 6.7 and Platelet 33 K -as per transfer papers, patient may have had symptoms of desaturation or diaphoresis at the assisted -sent to ED on 06/26/18 and found to have WBC 35K and Hgb 5.1 and Platelet 28 K -patient receiving 2 units or PRBC as per ED doctor and admitted to medical service for further management on review of systems., patient denies fever or chest pain or shortness of breath or palpitations or abdominal pain or vomiting or leg pain or problems with urination or bowel movements He did report of buttock pain and there are excoriations on right buttock Allergies reported to Ceftin, Augmentin, Vancomycin, Amoxillins Family history: patient denies any known health history of medical problems Admission Exam Per Admitting Provider General: no acute distress Eyes: EOMI Lungs: clear to asuculation bilaterally Heart: regular rate Abdomen: soft, nontender, positive bowel sounds Extremities: chronic deviation of right hand at the wrist and chronic internal rotation of the leg foot at the ankle Principal Diagnosis Acute myeloid leukemia not having achieved remission, Leukocytosis, Anemia, Thrombocytopenia, Acute Kidney Injury, Chronic Kidney Disease stage 3, relative hypotension, Type 2 diabetes mellitus without complications on [employer] insulin Discharge Exam General: no acute distress Eyes: EOMI Lungs: clear to asuculation bilaterally Heart: regular rate Abdomen: soft, nontender, positive bowel sounds Extremities: chronic deviation of right hand at the wrist and chronic internal rotation of the leg foot at the ankle Discharge Data Allergies Allergy/AdvReac Type Severity Reaction Status Date / Time amoxicillin Allergy Intermediate RASH HEAD Verified 06/26/18 16:40 TO TOE clavulanic acid Allergy Intermediate RASH HEAD Verified 06/26/18 16:40 TO TOE vancomycin Allergy Intermediate RASH Verified 06/26/18 16:40 cefuroxime Allergy Unknown UNKNOWN Verified 06/26/18 16:40 Consultations 06/26/18 17:26 ED Decision to Admit Stat 06/26/18 19:50 Consult Case Management - Discharge Planning Routine Consult Oncology Routine 06/28/18 16:16 Consult Infectious Diseases Routine Ordered Studies 06/29/18 10:50 US venous doppler [facility] Course (1) AML (acute myeloblastic leukemia): Acute Myeloid Leukemia with Leukocytosis, Anemia, Thrombocytopenia being worked up and treated for possible bacteremia as cause of leukocytosis; alternative differential to the leukocytosis is from the Acute Myeloid Leukemia progression -As per outpatient oncology note Dr. 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 and deemed to be a poor candidate for chemotherapy with general poor prognosis -as per assisted labs 06/22/18 WBC 34 K with Hgb 6.7 and Platelet 33 K -as per transfer papers, patient may have had symptoms of desaturation or diaphoresis at the assisted -sent to ED on 06/26/18 and found to have WBC 35K and Hgb 5.1 and Platelet 28 K -patient received 2 units or PRBC as per ED doctor; follow up Hgb on 06/27/18 is 7.1 and platelets of 20K -will try to maintain Hgb above 7 and platelets above 10 K; additional PRBCs have been ordered on hold -as of 06/27/18 Patient's WBC was uptrending to 39K and cefepime was started. his admission blood culture with 1 or 2 bottles returning as gram positive cocci -06/28/18 WBC downtrended to 30 K on cefepime, the gram positive cocci returned as coag negative staph that is not lugdenesis; continue cefepime for now; blood cultures to be repeated on 06/28/18 and infectious disease consult requested; Hgb 8 and Platelets 21 K -06/29/18 WBC 33 K, Hgb 8.5 and Platelets 23 K; cefipime Antibiotic held today to try to monitor off antibiotics as Infectious Disease consult suspects that the initial blood culture of coag negative staph is a contaminant -06/30/18: WBC 8.3 and thrombocytopenia 25K. WBC continues to be elevated as 37 K which is generally unchanged from admission WBC and in recent outpatient labs. A trial of antibiotics of cefepime was given but then stopped as admission blood culture was considered to be a contaminant and follow up blood culture with no growth to date Allergies reported to Ceftin, Augmentin, Vancomycin, Amoxillins Acute kidney Injury on Chronic kidney disease stage III -JULITA has resolved Relative hypotension -partly due to general supine position on bed, standing IV fluids have been held earlier on 06/29/18 to avoid edema, a bolus of 250 cc of fluids ordered for 06/19/18, and then with 50 cc/hr of normal saline at night with BP at or above slightly 90/60s, when off IV fluids the blood pressure is 82/51 but patient is without symptoms Right buttock excoriations -wound care, minimize pressure on right buttock History of teraplegia, cerebral palsy, neurogenic bladder, neurogenic bowel as per outpatient records -bowel regimen -duloxetine, gabapentin, tizanidine Type 2 diabetes on assisted insulin Lantus 10 units BID fingerstick glucose with sliding scale aspart History of Hypothyroidism continue home dose Levothyroxine 50 mcg daily Code Status: DNI/DNR as per discussion with the patient Family Contacts sister Alison [phone] nephew Rai [phone] Discharge Diagnosis Acute myeloid leukemia not having achieved remission, Leukocytosis, Anemia, Thrombocytopenia, Acute Kidney Injury, Chronic Kidney Disease stage 3, relative hypotension, Type 2 diabetes mellitus without complications on [employer] insulin Discharge Instructions On this admission, patient received 2 units of PRBC with stable anemia currently WBC 8.3 and thrombocytopenia 25K. WBC continues to be elevated as 37 K which is generally unchanged from admission WBC and in recent outpatient labs. A trial of antibiotics of cefepime was given but then stopped as admission blood culture was considered to be a contaminant and follow up blood culture with no growth to date Patient was evaluated by infectiouse disease consult and oncology consult as inpatient Patient has relative hypotension off IV fluids. Have discussed with patient and family that despite the White blood cell counts in the 30 thousands and relative hypotension that patient's goals of care is tor return to [facility]. Patient has been mentating well at baseline even when blood pressure is recorded to be less than 90/60. The goals of care is to have patient return to hospital only if symptomatic (in other words, if blood pressure low and patient is without symptoms then this would not immediately require hospital evaluation) and to give blood transfusion if Hgb less than 7 and if platelet is less than 10 K. Patient's code status continues to be DNR and DNI and his wishes are to return to [facility] and his family is in agreement On return, patient should avoid aspirin being of low platelets On return, patient should be off gabapentin being this can cause low blood pressure. Patient may take midrodrine 2.5 mg TID for the next 5 days Patient should be evaluated by primary care doctor in 1 week. Total Time Total Time Spent Total Time Spent (In Minutes): 40 minutes Total Time Includes: Examination of the Patient, Discharge Planning and Medication Reconciliation Discharge Plan Discharge Items Patient Disposition: Transfer Care Home [facility] Reason For Visit: ANEMIA,LEUKOCYTOSIS FROM ACUTE MYELOID LEUKEMIA Discharge Diagnosis: Acute myeloid leukemia not having achieved remission, Leukocytosis, Anemia, Thrombocytopenia, Acute Kidney Injury, Chronic Kidney Disease stage 3, relative hypotension, Type 2 diabetes mellitus without complications on [employer] insulin Condition: Fair Discharge Goals: Improve function Activity: Resume your previous activity Non-emergency contact: Primary Care Provider Call non-emergency contact if: you have any medication questions Diet: Regular Addtl Provider Instructions: Discharge Instructions On this admission, patient received 2 units of PRBC with stable anemia currently WBC 8.3 and thrombocytopenia 25K. WBC continues to be elevated as 37 K which is generally unchanged from admission WBC and in recent outpatient labs. A trial of antibiotics of cefepime was given but then stopped as admission blood culture was considered to be a contaminant and follow up blood culture with no growth to date Patient was evaluated by infectiouse disease consult and oncology consult as inpatient Patient has relative hypotension off IV fluids. Have discussed with patient and family that despite the White blood cell counts in the 30 thousands and relative hypotension that patient's goals of care is tor return to [facility]. Patient has been mentating well at baseline even when blood pressure is recorded to be less than 90/60. The goals of care is to have patient return to hospital only if symptomatic (in other words, if blood pressure low and patient is without symptoms then this would not immediately require hospital evaluation) and to give blood transfusion if Hgb less than 7 and if platelet is less than 10 K. Patient's code status continues to be DNR and DNI and his wishes are to return to [facility] and his family is in agreement On return, patient should avoid aspirin being of low platelets On return, patient should be off gabapentin being this can cause low blood pressure. Patient may take midrodrine 2.5 mg TID for the next 5 days Patient should be evaluated by primary care doctor in 1 week. Prescriptions: New midodrine 2.5 mg Tablet 2.5 mg PO TID@0800,1200,1700 5 Days Qty: 15 RF: 0 Continue ranitidine HCl 150 mg Capsule 150 mg PO BID Qty: 0 RF: 0 polyethylene glycol 3350 17 gram/dose Powder 17 packet PO DAILY Qty: 0 RF: 0 acetaminophen 325 mg Capsule 650 mg PO QID PRN (Reason: pain) Qty: 0 RF: 0 ondansetron HCl 4 mg Tablet 4 mg PO QID PRN (Reason: nausea) Qty: 10 RF: 1 levothyroxine 50 mcg Tablet 50 mcg PO DAILY 30 Days Qty: 0 RF: 5 sodium phosphates 9.5-3.5 gram/59 mL Enema 118 ml VA DAILY Qty: 0 RF: 0 tizanidine 4 mg Tablet 4 mg PO TID Qty: 0 RF: 0 lansoprazole 15 mg Capsule,Delayed Release(Dr/Ec) 15 mg PO DAILY Qty: 0 RF: 0 duloxetine 30 mg Capsule,Delayed Release(Dr/Ec) 30 mg PO DAILY 30 Days Qty: 30 RF: 5 silver sulfadiazine 1 % Cream 1 applic TOPICAL DAILY 7 Days Qty: 50 RF: 0 multivitamin Tablet 1 tab PO DAILY RF: 0 promethazine [Phenergan] 25 mg Suppository 25 mg VA Q4H PRN (Reason: Nausea) RF: 0 magnesium hydroxide [Milk of Magnesia] 400 mg/5 mL Suspension 30 ml PO DAILY PRN (Reason: Constipation) RF: 0 morphine 20 mg/5 mL (4 mg/mL) Solution 5 mg PO Q2H RF: 0 bisacodyl [Dulcolax (bisacodyl)] 10 mg Suppository 10 mg VA DAILY RF: 0 camphor-menthol [Men-Phor] 0.5-0.5 % Lotion 1 applic TOPICAL BID PRN (Reason: itching) RF: 0 sodium chloride [Saline Nasal] 0.65 % Aerosol,[place] 1 spray INTRANASAL Q3H PRN (Reason: nausea) RF: 0 menthol [Cough Drops] 2.7 mg Lozenge RF: 0 ondansetron HCl [Zofran] 8 mg Tablet 8 mg PO TID PRN (Reason: Nausea) RF: 0 ipratropium-albuterol 0.5 mg-3 mg(2.5 mg base)/3 mL Solution For Nebulization 3 ml INHALATION Q4H RF: 0 insulin glargine [Lantus U-100 Insulin] 100 unit/mL Solution 10 unit SUBCUT DAILY RF: 0 oxycodone 5 mg Tablet 5 mg PO QID PRN (Reason: Pain) RF: 0 hydroxyzine pamoate 25 mg Capsule 25 mg PO Q6H PRN (Reason: Itching) RF: 0 Discontinued aspirin [Aspir-81] 81 mg Tablet,Delayed Release (Dr/Ec) 81 mg PO DAILY Qty: 0 RF: 0 gabapentin 100 mg Capsule 200 mg PO TID RF: 0 Stand-Alone Forms: [facility] Discharge Orders: Discharge Order (Routine); Ordered 06/30/18 Ordered By: Keaton Tsang Skilled Items Patient informed of condition?: Yes DNR: Yes Discharge Level of Care: Skilled Communicable Disease: No Discharge Prognosis: Stable Admission Data Admit Date/Time: 06/26/18 19:34 Attending Provider: Keaton Tsang Admit Provider: Keaton Tsang Primary Care Provider: Geo Varela Other Providers: Keaton Tsang ; Jackie Castaneda ; Bertram Sargent Service: Oncology
== END 2018-06-30 17:54 | DRG 834 ==
LOC: ED 15:20 → 4E 19:27